=== PATIENT | male | born 1970 | race Caucasian/White ===

== ENCOUNTER → 2017-08-03 | Outpatient (REF) | payer OTHER ==
[~2017-08-03] MED LIST: ATOR1TAB21 PO; BENA25CA2 PO; DOCU10CA PO; FLAG500T PO; HYDR25TAB PO; LISI10TA4 PO; MACR100C42 PO; MECL-68 PO; NEUR100C PO; NITR100C2 PO; PARO20TA3 PO; PERC5TAB12 PO; PROT1TAB2 PO; RANI15TA PO; REGL10TA6 PO; TYLE325T5 PO; toradol
[2017-08-03 14:42] LABS: REASON FOR REVIEW COMPREHENSIVE REVIEW
== END ==
LOC: M LAB REF 12:45
PROVIDERS: ATTEND Internal Medicine Medical Oncology
DX: D70.3 Neutropenia due to infection (principal)

== ENCOUNTER → 2017-08-12 | Outpatient (CLI) | payer OTHER ==
[~2017-08-12] MED LIST changes: +ISOVUE-370 76% 100ML VIAL (Q9967) As Ordered ONE
--- NOTE | 2017-08-12 08:47 | REP ---
CT Head without contrast HISTORY: Dizziness COMPARISON: None There is no intraparenchymal hemorrhage, acute infarct, mass or midline shift. The ventricular system is normal in appearance. There is no extra cerebral collection. There is no fracture. The visualized sinuses are clear. IMPRESSION: There is no intracranial lesion. Signed by Philippe Rouse MD 08/12/2017 08:37 A
--- NOTE | 2017-08-12 08:57 | REP ---
CT ANGIO HEAD: HISTORY: Dizziness. CONTRAST: Isovue 370, 75 mL. There is no aneurysm or arteriovenous malformation. A small calcified atherosclerotic plaque is present in the mid basilar artery. There is no significant stenosis. Major intracranial vessels are patent. The left vertebral artery is dominant. IMPRESSION: 1. There is no aneurysm or arteriovenous malformation. 2. Atherosclerotic disease as described above. Signed by Philippe Rouse MD 08/12/2017 09:00 A
--- NOTE | 2017-08-12 09:00 | REP ---
CT ANGIO NECK: HISTORY: Dizziness. CONTRAST: Isovue 370, 75 mL. The distal common carotid arteries and origins of the external and internal carotid arteries are normal. The vertebral arteries are patent. The left vertebral artery is dominant. There are no atherosclerotic lesions. The origins of the great vessels are normal. IMPRESSION: Normal CT ANGIO neck. Signed by Philippe Rouse MD 08/12/2017 09:00 A
== END ==
LOC: M RAD 07:25
PROVIDERS: ATTEND Psychiatry & Neurology Neurology
DX: R42 Dizziness and giddiness (principal); R26.81 Unsteadiness on feet
CPT/HCPCS: 70450; 70496; 70498; Q9967

== ENCOUNTER 2020-09-29 13:39 | Inpatient (IN) | payer OTHER ==
[~2020-09-29] VITALS: Ht 177.8 cm; Wt 139.7 kg
[~2020-09-29 13:39] MED LIST changes: +AUGM875T28 PO; +GLIP10TA PO; +HYDR-2541 PO; -HYDR25TAB PO; -ISOVUE-370 76% 100ML VIAL (Q9967) As Ordered ONE; -MECL-68 PO; +MECL1TAB31 PO; +NESI25TA PO; +PARO10TA3 PO; +PIOG1TAB36 PO; +PROAAER10 INH
[2020-09-29 15:10] VITALS: BP 132/78
[2020-09-29 16:00] LABS: BASO % 0.4 % (0.0-1.0); EOS % 0.4 % (0.0-3.0); HEMATOCRIT 46.1 % (42.0-52.0); HEMOGLOBIN 15.2 g/dl (13.5-17.5); LYMPH # 0.5 10^3/uL (1.5-5.0); LYMPH % 17.5 % (24.0-44.0); MEAN CORPUSCULAR HEMOGLOBIN 31.3 pg (27.0-33.0); MEAN CORPUSCULAR VOLUME 95.1 fl (80.0-96.0); MONO # 0.4 10^3/uL (0.0-0.8); MONO % 16.7 % (0.0-5.0); NEUTROPHILS # 1.7 10^3/uL (1.5-8.5); PLATELET COUNT, AUTOMATED 109 10^3/uL (150-450); RED BLOOD COUNT 4.85 10^6/uL (4.30-6.10); WHITE BLOOD COUNT 2.6 10^3/uL (4.0-10.0)
[2020-09-29 16:09] LABS: INR 1.06
[2020-09-29] MEDS ORDERED: IBUP1TAB7 PO (16:13)
[2020-09-29] MEDS ORDERED: HYDR50TA70 PO (16:13)
[2020-09-29 16:27] LABS: ALBUMIN 3.2 GM/DL (3.2-5.2); ALT/SGPT 367 U/L (12-78); BILIRUBIN,TOTAL 6.4 MG/DL (0.2-1.0); BLOOD UREA NITROGEN 8 MG/DL (7-18); CALCIUM LEVEL 8.5 MG/DL (8.5-10.1); CARBON DIOXIDE LEVEL 24 MEQ/L (21-32); CHLORIDE LEVEL 103 MEQ/L (98-107); CREATININE FOR GFR 0.76 MG/DL (0.70-1.30); GLOMERULAR FILTRATION RATE > 60.0 (>60); GLUCOSE, FASTING 227 MG/DL (70-100); POTASSIUM SERUM 3.8 MEQ/L (3.5-5.1); SODIUM LEVEL 135 MEQ/L (136-145); TOTAL PROTEIN 7.8 GM/DL (6.4-8.2)
[2020-09-29] MEDS ORDERED: DEXTROSE 50% 50 ML SYRINGE IV PRN (17:15)
[2020-09-29] MEDS ORDERED: GLUCAGON INJ 1MG VIAL SC PRN (17:15)
[2020-09-29] MEDS ORDERED: GLUCOSE 4GM CHEW TABLET PO PRN (17:15)
[2020-09-29 17:34] LABS: LIPASE 4596 U/L (73-393)
[2020-09-29] MEDS: HumaLOG INSULIN (NovoLOG) PER UNIT SC SCH ×2 (17:55→20:07)
[2020-09-29 20:00] VITALS: BP 135/81
[2020-09-29] MEDS: NS 1,000 ML IV SCH (20:07)
[2020-09-29] MEDS: MORPHINE 2 MG/ML 1ML VIAL (J2270) IV PRN (20:11)
--- NOTE | 2020-09-29 21:20 | HPEPDOC ---
General Date of Admission Sep 29, 2020 at 14:58 Date of Service: Sep 29, 2020 Chief Complaint The patient is a 50-year-old male admitted with a reason for visit of Pancreatitis,Obstructive Jaundice. Source: Patient History of Present Illness 50 year old male with h/o cirrhosis due to hemochromatosis, thrombocytopenia, leucopenia, morbid obesity, h/o Hodgkin's lymphoma treated in 2010, DM, HTN, was transferred from [place] for Obstructive jaundice and pancreatitis with CT scan showing enlargement of pancreas head. Patient complains of dull aching abdominal pain in the periumbilical region and radiating around the sides to the back ede g on for 1 month but worse in the last 1 week. He also complains of nausea and vomiting and unable to keep food down. He was found to have obstructive jaundice with possible pancreatitis. Home Medications Scheduled Alogliptin Benzoate (Nesina) 25 Mg Tablet, 25 MG PO DAILY, (Reported) Gabapentin (Neurontin) 100 Mg Cap, 100 MG PO TID, (Reported) Glipizide (Glipizide) 10 Mg Tablet, 10 MG PO BID, (Reported) Lisinopril (Lisinopril) 10 Mg Tab, 10 MG PO DAILY, (Reported) Paroxetine HCl (Paroxetine) 10 Mg Tablet, 10 MG PO DAILY, (Reported) Pioglitazone HCl (Pioglitazone HCl) 15 Mg Tablet, 15 MG PO DAILY, (Reported) Scheduled PRN Albuterol Sulfate (Proair Hfa) 8.5 Gm Hfa.aer.ad, 2 PUFF INH Q4H PRN for wheezing, (Reported) Hydroxyzine HCl (Hydroxyzine HCl) 50 Mg Tablet, 50 MG PO Q6H PRN for ANXIETY/AGITATION, (Reported) Meclizine HCl (Meclizine HCl) 25 Mg Tab, 25 MG PO Q8H PRN for NAUSEA OR VOMITING, (Reported) Allergies Coded Allergies: No Known Drug Allergies (Verified Allergy, Unknown, 09/29/20) Past Medical History Medical History History of non-Hodgkin's lymphoma in neck underwent localized therapy with excision followed by radiation therapy (as per Dr. Jeff's notes) in 2010 Leukopenia and thrombocytopenia Liver cirrhosis on CT scan 06/25 and on liver biopsy 06/2010. Hereditary hemochromatosis with gene testing 07/24/2020 showing single mutation [id number] identified and liver biopsy 06/27/2010 showed iron overload restarted on phlebotomy about 2 months ago. Hypertension. Hyperlipidemia. Diabetes mellitus. Morbid obesity Ureteral stone tubular adenomas H/O ANGEL now reports does not have it Obstructive lung disease Surgical History Bilateral tonsillectomy cystoscopy and laser lithotripsy of right ureteral stone and placement of JJ stent Family History His father had liver cancer. His mother had colon cancer. A paternal uncle had stomach cancer with subsequent "spider" cancer. Social History * Smoker: former Smoker, chew (tobacco) Alcohol: Denies Drugs: denies A-FIB/CHADSVASC A-FIB History Current/History of A-Fib/PAF?: No Review of Systems Constitutional: Reports: Weight Loss; Denies: Chills, Fever, Night Sweats Eyes: Denies: Pain, Vision change ENT: Denies: Head Aches, Ear Pain, Dysphagia Skin: Denies: Rash, Lesions, Breakdown Pulmonary: Denies: Dyspnea, Cough Cardiovascular: Denies: Chest Pain, Palpitations, Orthopnea, Paroxysmal Noc. Dyspnea, Lt Headedness Gastrointestinal: Reports: Nausea, Vomiting, Abdominal Pain Genitourinary: Denies: Dysuria, Frequency, Incontinence, Retention Hematologic: Denies: Bruising, Bleeding Excessively Musculoskeletal: Denies: Neck Pain, Back Pain, Joint Pain, Muscle Pain, Spasms Physical Examination General Exam: Positive: Alert, Cooperative, No Acute Distress Eye Exam: Positive: PERRLA, Conjunctiva & lids normal, EOMI, Sclera icteric ENT Exam: Positive: Atraumatic, Mucous membr. moist/pink, Pharynx Normal Neck Exam: Positive: Supple; Negative: JVD, thyromegaly Chest Exam: Positive: Clear to auscultation, Normal air movement Heart Exam: Positive: Rate Normal, Regular Rhythm, Normal S1, Normal S2; Negative: Murmurs, Rubs Abdomen Exam: Positive: Normal bowel sounds, Soft, Tenderness, Other (obese); Negative: Hepatospenomegaly Extremity Exam: Positive: Normal pulses; Negative: Clubbing, Cyanosis, Edema Skin Exam: Positive: Nl turgor and temperature; Negative: Breakdown, Lesion Vital Signs Vital Signs Label Value Date Time Patient Temperature 98.1 degrees F 09/29/20 1510 Temperature Source Temporal 09/29/20 1510 Pulse 84 09/29/20 1510 Respiratory Rate 18 bpm 09/29/20 1510 Blood Pressure Assessment 132/78 (96) 09/29/20 1510 Bedside Pulse Oximetry 98 % 09/29/20 1510 Item Value Date Time Oxygen Delivery Method Room Air 09/29/20 1510 Assessment/Plan 50 year old male with h/o cirrhosis due to hemochromatosis, thrombocytopenia, leucopenia, morbid obesity, h/o Hodgkin's lymphoma treated in 2010, DM, HTN, was transferred from [place] for Obstructive jaundice and pancreatitis with CT scan showing enlargement of pancreas head. Patient complains of dull aching abdominal pain in the periumbilical region and radiating around the sides to the back going on for 1 month but worse in the last 1 week. He also complains of nausea and vomiting and unable to keep food down. He was found to have obstructive jaundice with possible pancreatitis and rule out pancreatic mass. Obstructive Jaundice MRI of abdomen with contrast pancreatic protocol GI consult. NPO midnight. DM Lispro sliding scale Ac and HS. Hypertension Lisinopril HLD will hold statin for now Depression continue paroxetine. Morbid obesity with H/O ANGEL reports that had a second sleep study done in [place] and was told that he no longer has sleep apnea. History of non-Hodgkin's lymphoma in neck underwent localized therapy with excision followed by radiation therapy in 2010 Leukopenia and thrombocytopenia had flow cytometry which was negative planned for bone marrow biopsy by hematology Liver cirrhosis on CT scan 06/25 and on liver biopsy 06/2010. due to hemochromatosis getting phlebotomy every 2 weeks Plan / VTE VTE Prophylaxis Ordered?: Yes RITA BOSS MD Sep 29, 2020 15:37
[2020-09-30] VITALS: BP 137/86
[2020-09-30 04:00] VITALS: BP 133/86
[2020-09-30] MEDS: MORPHINE 2 MG/ML 1ML VIAL (J2270) IV PRN ×4 (04:00→23:41)
[2020-09-30] MEDS: NS 1,000 ML IV SCH (05:21)
[2020-09-30 07:51] VITALS: BP 118/65
[2020-09-30] MEDS: HumaLOG INSULIN (NovoLOG) PER UNIT SC SCH ×4 (08:30→21:00)
[2020-09-30 09:43] LABS: BASO % 0.6 % (0.0-1.0); EOS % 1.8 % (0.0-3.0); HEMATOCRIT 45.2 % (42.0-52.0); HEMOGLOBIN 15.3 g/dl (13.5-17.5); LYMPH # 0.4 10^3/uL (1.5-5.0); LYMPH % 24.3 % (24.0-44.0); MEAN CORPUSCULAR HEMOGLOBIN 32.2 pg (27.0-33.0); MEAN CORPUSCULAR HGB CONC 33.8 g/dl (32.0-36.5); MEAN CORPUSCULAR VOLUME 95.2 fl (80.0-96.0); MONO # 0.4 10^3/uL (0.0-0.8); MONO % 21.9 % (0.0-5.0); NEUTROPHILS % 51.4 % (36.0-66.0); PLATELET COUNT, AUTOMATED 112 10^3/uL (150-450); RED BLOOD COUNT 4.75 10^6/uL (4.30-6.10)
[2020-09-30 10:11] LABS: NEUTROPHILS # 0.9 10^3/uL (1.5-8.5); WHITE BLOOD COUNT 1.7 10^3/uL (4.0-10.0)
[2020-09-30 10:58] LABS: ALBUMIN 2.9 GM/DL (3.2-5.2); ALT/SGPT 348 U/L (12-78); BILIRUBIN,DIRECT 4.7 MG/DL (0.0-0.2); BILIRUBIN,TOTAL 6.2 MG/DL (0.2-1.0); BLOOD UREA NITROGEN 6 MG/DL (7-18); CALCIUM LEVEL 8.3 MG/DL (8.5-10.1); CARBON DIOXIDE LEVEL 28 MEQ/L (21-32); CHLORIDE LEVEL 103 MEQ/L (98-107); CREATININE FOR GFR 0.71 MG/DL (0.70-1.30); GLOMERULAR FILTRATION RATE > 60.0 (>60); GLUCOSE, FASTING 232 MG/DL (70-100); LIPASE 3514 U/L (73-393); POTASSIUM SERUM 3.7 MEQ/L (3.5-5.1); SODIUM LEVEL 136 MEQ/L (136-145); TOTAL PROTEIN 7.5 GM/DL (6.4-8.2)
[2020-09-30 12:00] VITALS: BP 126/72
--- NOTE | 2020-09-30 13:16 | IPNPDOC ---
Subjective Date Seen The patient was seen on 09/30/20. Subjective Chief Complaint/HPI Complains of wheezing this am. Continued to have central abdominal pain with radiation around the sides to the back. No fever or chills Objective Physical Examination General Exam: Positive: Alert, Cooperative, No Acute Distress Eye Exam: Positive: PERRLA, Conjunctiva & lids normal, EOMI, Sclera icteric ENT Exam: Positive: Atraumatic, Mucous membr. moist/pink, Pharynx Normal Neck Exam: Positive: Supple; Negative: JVD, thyromegaly Chest Exam: Positive: Clear to auscultation, Normal air movement Heart Exam: Positive: Rate Normal, Regular Rhythm, Normal S1, Normal S2; Negative: Murmurs, Rubs Abdomen Exam: Positive: Normal bowel sounds, Soft, Tenderness, Other (obese); Negative: Hepatospenomegaly Extremity Exam: Positive: Normal pulses; Negative: Clubbing, Cyanosis, Edema Skin Exam: Positive: Nl turgor and temperature; Negative: Breakdown, Lesion Assessment /Plan Assessment 50 year old male with h/o cirrhosis due to hemochromatosis, thrombocytopenia, leucopenia, morbid obesity, h/o Hodgkin's lymphoma treated in 2010, DM, HTN, was transferred from [place] for Obstructive jaundice and pancreatitis with CT scan showing enlargement of pancreas head. Patient complains of dull aching abdominal pain in the periumbilical region and radiating around the sides to the back going on for 1 month but worse in the last 1 week. He also complains of nausea and vomiting and unable to keep food down. He was found to have obstructive jaundice with pancreatitis and rule out pancreatic mass. Acute Pancreatitis full liquids seems to be tolerating it. IVF, morphine prn. Obstructive Jaundice MRI of abdomen with contrast pancreatic protocol GI consult. DM Lispro sliding scale Ac and HS. Hypertension Lisinopril HLD will hold statin for now Depression continue paroxetine. Morbid obesity with H/O ANGEL reports that had a second sleep study done in [place] and was told that he no longer has sleep apnea. History of non-Hodgkin's lymphoma in neck underwent localized therapy with excision followed by radiation therapy in 2010 Leukopenia and thrombocytopenia had flow cytometry which was negative planned for bone marrow biopsy by hematology Liver cirrhosis on CT scan 06/25 and on liver biopsy 06/2010. due to hemochromatosis getting phlebotomy every 2 weeks Plan/VTE VTE Prophylaxis Ordered?: Yes VS, I&O, [facility] Vital Signs/I&O Vital Signs Date Time Temp Pulse Resp B/P (MAP) Pulse Ox O2 Delivery O2 Flow Rate FiO2 09/30/20 12:14 18 09/30/20 12:00 97.6 76 126/72 (90) 94 Room Air I&O- Last 24 Hours up to 6 AM 09/30/20 07:00 Intake Total 2055 ml Output Total 1200 ml Balance 855 ml Laboratory Data 24H LABS Laboratory Tests 2 09/29/20 15:20: Coronavirus (COVID-19)(PCR) NEGATIVE 09/29/20 15:43: Immature Granulocyte % (Auto) 0.0, Neutrophils (%) (Auto) 65.0, Lymphocytes (%) (Auto) 17.5L, Monocytes (%) (Auto) 16.7H, Eosinophils (%) (Auto) 0.4, Basophils (%) (Auto) 0.4, Neutrophils # (Auto) 1.7, Lymphocytes # (Auto) 0.5L, Monocytes # (Auto) 0.4, Eosinophils # (Auto) 0.0, Basophils # (Auto) 0.0, Nucleated Red Blood Cells % (auto) 0.0, Prothrombin Time 14.0, Prothromb Time International Ratio 1.06, Anion Gap 8, Glomerular Filtration Rate > 60.0, Calcium Level 8.5, Total Bilirubin 6.4H, Aspartate Amino Transf (AST/SGOT) 226H, Alanine Aminotransferase (ALT/SGPT) 367H, Alkaline Phosphatase 392H, Total Protein 7.8, Albumin 3.2, Albumin/Globulin Ratio 0.7, Lipase 4596H 09/29/20 17:47: Bedside Glucose (Misc Panel) 190H 09/29/20 20:05: Bedside Glucose (Misc Panel) 217H 09/30/20 08:28: Bedside Glucose (Misc Panel) 215H 09/30/20 09:10: Immature Granulocyte % (Auto) 0.0, Neutrophils (%) (Auto) 51.4, Lymphocytes (%) (Auto) 24.3, Monocytes (%) (Auto) 21.9H, Eosinophils (%) (Auto) 1.8, Basophils (%) (Auto) 0.6, Neutrophils # (Auto) 0.9L, Lymphocytes # (Auto) 0.4L, Monocytes # (Auto) 0.4, Eosinophils # (Auto) 0.0, Basophils # (Auto) 0.0, Nucleated Red Blood Cells % (auto) 0.0, Anion Gap 5L, Glomerular Filtration Rate > 60.0, Calc ium Level 8.3L, Total Bilirubin 6.2H, Direct Bilirubin 4.7H, Aspartate Amino Transf (AST/SGOT) 235H, Alanine Aminotransferase (ALT/SGPT) 348H, Alkaline Phosphatase 399H, Total Protein 7.5, Albumin 2.9L, Albumin/Globulin Ratio 0.6, Lipase 3514H 09/30/20 12:06: Bedside Glucose (Misc Panel) 203H CBC/BMP Laboratory Tests 09/29/20 15:43 09/30/20 09:10 RITA BOSS MD Sep 30, 2020 13:16
[2020-09-30] MEDS: LR 1,000 ML IV SCH ×2 (13:25→19:55)
[2020-09-30] MEDS: ALBUTEROL 90 MCG/ACT 8GM HFA INHALER INH PRN (15:45)
[2020-09-30 16:00] VITALS: BP 142/84
[2020-09-30] MEDS ORDERED: PROHANCE 279.3MG/ML 5ML VIAL As Ordered ONE (19:25)
[2020-09-30] MEDS ORDERED: PROHANCE 279.3MG/ML 15ML VIAL As Ordered ONE (19:25)
[2020-09-30 20:00] VITALS: BP 132/83
[2020-09-30] MEDS ORDERED: LORazepam 2 MG/ML VIAL IV ONE (20:00)
[2020-10-01] VITALS: BP 136/88
[2020-10-01 04:00] VITALS: BP 131/71
[2020-10-01 05:32] LABS: BASO % 1.2 % (0.0-1.0); EOS # 0.1 10^3/uL (0.0-0.5); EOS % 3.6 % (0.0-3.0); HEMATOCRIT 40.4 % (42.0-52.0); LYMPH # 0.5 10^3/uL (1.5-5.0); LYMPH % 30.1 % (24.0-44.0); MEAN CORPUSCULAR HEMOGLOBIN 30.9 pg (27.0-33.0); MEAN CORPUSCULAR HGB CONC 32.9 g/dl (32.0-36.5); MONO # 0.3 10^3/uL (0.0-0.8); MONO % 20.5 % (0.0-5.0); NEUTROPHILS % 44.6 % (36.0-66.0); PLATELET COUNT, AUTOMATED 103 10^3/uL (150-450); WHITE BLOOD COUNT 1.7 10^3/uL (4.0-10.0)
[2020-10-01 05:53] LABS: HEMOGLOBIN 13.3 g/dl (13.5-17.5); NEUTROPHILS # 0.7 10^3/uL (1.5-8.5)
[2020-10-01 06:02] LABS: ALBUMIN 2.6 GM/DL (3.2-5.2); ALT/SGPT 299 U/L (12-78); BILIRUBIN,TOTAL 6.7 MG/DL (0.2-1.0); BLOOD UREA NITROGEN 5 MG/DL (7-18); CALCIUM LEVEL 8.3 MG/DL (8.5-10.1); CARBON DIOXIDE LEVEL 28 MEQ/L (21-32); CHLORIDE LEVEL 102 MEQ/L (98-107); CREATININE FOR GFR 0.66 MG/DL (0.70-1.30); GLOMERULAR FILTRATION RATE > 60.0 (>60); GLUCOSE, FASTING 238 MG/DL (70-100); POTASSIUM SERUM 3.5 MEQ/L (3.5-5.1); SODIUM LEVEL 138 MEQ/L (136-145); TOTAL PROTEIN 6.7 GM/DL (6.4-8.2)
[2020-10-01 07:52] VITALS: BP 124/68
[2020-10-01] MEDS: HumaLOG INSULIN (NovoLOG) PER UNIT SC SCH ×4 (07:59→21:44)
[2020-10-01] MEDS: LR 1,000 ML IV SCH ×4 (08:01→22:35)
[2020-10-01 11:50] VITALS: BP 142/88
[2020-10-01] MEDS ORDERED: diazePAM 5MG TABLET PO PRN (12:30)
[2020-10-01] MEDS: MORPHINE 2 MG/ML 1ML VIAL (J2270) IV PRN ×3 (12:35→23:36)
--- NOTE | 2020-10-01 12:53 | IPNPDOC ---
Text Note Date of Service The patient was seen on 10/01/20. NOTE Subjective: Patient stated that he is very claustrophobic to MRI. MRI was not done yesterday. Patient was able to tolerate full liquid diet. He stated that his abdominal pain significantly subsided. Objective: GENERAL APPEARANCE: NAD HEENT: icterus, no JVD, EOMI CARDIOVASCULAR: S1S2 LUNGS: CTA ABDOMEN: Moderately tender in the left upper quadrant MUSCULOSKELETAL: no cyanosis, no swelling INTEGUMENT: Jaundice NEUROLOGICAL: cranial nerve function from 2-12 intact intact, follows commands, speech not dysarthric Assessment /Plan 50 year old male with h/o cirrhosis due to hemochromatosis, thrombocytopenia, leucopenia, morbid obesity, h/o Hodgkin's lymphoma treated in 2010, DM, HTN, was transferred from [place] for Obstructive jaundice and pancreatitis with CT scan shows no biliary duct dilatation. Patient complains of dull aching abdominal pain in the periumbilical region and radiating around the sides to the back going on for 1 month but worse in the last 1 week. He also complains of nausea and vomiting and unable to keep food down. He was found to have obstructive jaundice with pancreatitis and rule out pancreatic mass. Acute Pancreatitis Improved IVF, morphine prn. CT of abdomen was done in the [facility] [facility] and showed normal contrast enhanced CT appearance of the pancreas, adrenal glands and kidneys. Spleen enlarged 17.8 cm. Status post cholecystectomy. No evidence of biliary duct dilatation. Possible mild cirrhosis. Obstructive Jaundice Patient refused MRCP I talked to Dr. Hodges, he recommended to proceed with ultrasound DM Lispro sliding scale Ac and HS. Hypertension Lisinopril HLD will hold statin for now Depression continue paroxetine. Morbid obesity with H/O ANGEL reports that had a second sleep study done in [place] and was told that he no longer has sleep apnea. History of non-Hodgkin's lymphoma in neck underwent localized therapy with excision followed by radiation therapy in 2010 Leukopenia and thrombocytopenia had flow cytometry which was negative planned for bone marrow biopsy by hematology Liver cirrhosis on CT scan 06/25 and on liver biopsy 06/2010. due to hemochromatosis getting phlebotomy every 2 weeks VS,Fishbone, I+O VS, Fishbone, I+O Laboratory Tests 10/01/20 04:52 Vital Signs Date Time Temp Pulse Resp B/P (MAP) Pulse Ox O2 Delivery O2 Flow Rate FiO2 10/01/20 11:50 97.8 77 18 142/88 (003) 93 Room Air I&O- Last 24 Hours up to 6 AM 10/01/20 06:00 Intake Total 720 ml Output Total 3000 ml Balance -2280 ml BETO GALLARDO DO Oct 01, 2020 12:53
[2020-10-01] MEDS ORDERED: diazePAM 5MG TABLET PO ONE (14:00)
[2020-10-01 15:34] VITALS: BP 135/80
[2020-10-01] MEDS: ALBUTEROL 90 MCG/ACT 8GM HFA INHALER INH PRN (16:16)
[2020-10-01 20:00] VITALS: BP 142/82
[2020-10-02] VITALS (11 sets, daily range): BP systolic 126–170; BP diastolic 67–98
[2020-10-02] MEDS: MORPHINE 2 MG/ML 1ML VIAL (J2270) IV PRN ×3 (03:33→20:13)
[2020-10-02] MEDS: LR 1,000 ML IV SCH ×2 (03:33→12:23)
[2020-10-02 05:38] LABS: BASO % 0.6 % (0.0-1.0); EOS % 2.4 % (0.0-3.0); HEMATOCRIT 40.1 % (42.0-52.0); HEMOGLOBIN 13.3 g/dl (13.5-17.5); LYMPH # 0.5 10^3/uL (1.5-5.0); LYMPH % 31.1 % (24.0-44.0); MEAN CORPUSCULAR HGB CONC 33.2 g/dl (32.0-36.5); MEAN CORPUSCULAR VOLUME 93.5 fl (80.0-96.0); MONO # 0.4 10^3/uL (0.0-0.8); MONO % 22.2 % (0.0-5.0); NEUTROPHILS % 43.7 % (36.0-66.0); PLATELET COUNT, AUTOMATED 101 10^3/uL (150-450); RED BLOOD COUNT 4.29 10^6/uL (4.30-6.10); WHITE BLOOD COUNT 1.7 10^3/uL (4.0-10.0)
[2020-10-02 05:57] LABS: ALBUMIN 2.4 GM/DL (3.2-5.2); ALT/SGPT 278 U/L (12-78); BILIRUBIN,TOTAL 6.9 MG/DL (0.2-1.0); BLOOD UREA NITROGEN 6 MG/DL (7-18); CALCIUM LEVEL 8.5 MG/DL (8.5-10.1); CARBON DIOXIDE LEVEL 27 MEQ/L (21-32); CHLORIDE LEVEL 104 MEQ/L (98-107); CREATININE FOR GFR 0.63 MG/DL (0.70-1.30); GLOMERULAR FILTRATION RATE > 60.0 (>60); GLUCOSE, FASTING 231 MG/DL (70-100); POTASSIUM SERUM 3.5 MEQ/L (3.5-5.1); SODIUM LEVEL 137 MEQ/L (136-145)
[2020-10-02 06:02] LABS: NEUTROPHILS # 0.7 10^3/uL (1.5-8.5)
[2020-10-02 08:19] LABS: INR 1.1; PROTHROMBIN TIME 14.4 SECONDS (12.5-14.3)
[2020-10-02 08:30] LABS: IRON (FE) 135 UG/DL (65-175); PERCENT SATURATION 82.8 % (19.7-50.0); TOTAL IRON BINDING CAPACITY 163 UG/DL (250-450)
[2020-10-02] MEDS ORDERED: POTASSIUM CHLORIDE 10 MEQ SR TABLET PO ONE (09:00)
[2020-10-02] MEDS: HumaLOG INSULIN (NovoLOG) PER UNIT SC SCH ×4 (09:11→20:37)
[2020-10-02 09:59] LABS: HEPATITIS B SURFACE ANTIGEN NEGATIVE (NEGATIVE)
[2020-10-02 10:02] LABS: MONO REFLEX EBV VCA IgM NEGATIVE (NEGATIVE)
--- NOTE | 2020-10-02 10:04 | REP ---
INDICATION: pancreatitis,Jaundice. with Doppler portal vessels. COMPARISON: [facility] 09/29/2020. TECHNIQUE: Real-time sonographic evaluation of ABDOMEN PERFORMED, WITH DUPLEX DOPPLER EVALUATION OF PORTAL VASCULATURE. FINDINGS: Patient has had a prior cholecystectomy. There is no intrahepatic biliary dilatation. The common bile duct measures 10 mm in maximum diameter. The liver demonstrates heterogeneous increased echotexture with coarsening compatible with diffuse fibrofatty infiltration. There is likely an element of cirrhosis. No gross liver masses seen. The pancreas is not optimally visualized but there appears to be a hypoechoic mass in the head of the pancreas, approximately 3-4 centimeters in diameter. Spleen is significantly enlarged measuring 18.5 x 19.2 x 8.9 centimeters. There is no evidence of hydronephrosis, cyst, mass, or calculus in either kidney. The right kidney measures 12.7 x 6.8 x 6.3 cm. Left renal dimensions are 15.6 x 7.0 x 7.1 cm. No free fluid is seen. The main portal vein measures 11 mm in diameter. The main portal vein is patent with pulsatile waveform. Velocity in the main portal vein is 21 centimeter/second. There is reversal of flow in the left portal vein. The other portal veins demonstrate normal direction of flow. The splenic vein is only visualized in the splenic hilum with normal direction of flow, 27 centimeter/second. The superior mesenteric vein could not be visualized. Multiple varicosities are seen in the splenic hilum. There is no portal vein thrombosis. The waveform of the right hepatic vein is portalized. The middle hepatic vein is not visualized. The left hepatic vein demonstrates dampened phasicity.. Patent main hepatic artery demonstrates peak systolic velocity of 120 centimeters/second. IMPRESSION: Status post prior cholecystectomy. Common bile duct 10 millimeters. Diffuse fibrofatty infiltration of the liver with apparent cirrhosis. Significant splenomegaly. There is a mass in the head of the pancreas approximately 3-4 centimeters in diameter. Reversal of flow in the left portal vein. Otherwise normal direction of flow in the remaining portal veins. Multiple venous varicosities visualized in the splenic hilum. No thrombus seen in any of the portal veins or hepatic veins. <Electronically signed by Isaac Ferro > 10/02/20 1001
[2020-10-02 10:26] LABS: HEPATITIS B CORE ANTIBODY IGM NEGATIVE (NEGATIVE)
[2020-10-02 10:29] LABS: HEPATITIS A ANTIBODY IGM NEGATIVE (NEGATIVE)
--- NOTE | 2020-10-02 11:36 | IPNPDOC ---
Text Note Date of Service The patient was seen on 10/02/20. NOTE Subjective: No any acute events overnight. Patient denied fever, chills, nausea, vomiting, diarrhea or dysuria Objective: GENERAL APPEARANCE: NAD HEENT: icterus, no JVD, EOMI CARDIOVASCULAR: S1S2 LUNGS: CTA ABDOMEN: Moderately tender in the left upper quadrant MUSCULOSKELETAL: no cyanosis, no swelling INTEGUMENT: Jaundice NEUROLOGICAL: cranial nerve function from 2-12 intact intact, follows commands, speech not dysarthric Assessment /Plan 50 year old male with h/o cirrhosis due to hemochromatosis, thrombocytopenia, leucopenia, morbid obesity, h/o Hodgkin's lymphoma treated in 2010, DM, HTN, was transferred from [place] for Obstructive jaundice and pancreatitis with CT scan shows no biliary duct dilatation. Patient complains of dull aching abdominal pain in the periumbilical region and radiating around the sides to the back going on for 1 month but worse in the last 1 week. He also complains of nausea and vomiting and unable to keep food down. He was found to have obstructive jaundice with pancreatitis and rule out pancreatic mass. Acute Pancreatitis Improved IVF, morphine prn. CT of abdomen was done in the [facility] and showed normal contrast enhanced CT appearance of the pancreas, adrenal glands and kidneys. Spleen enlarged 17.8 cm. Status post cholecystectomy. No evidence of biliary duct dilatation. Possible mild cirrhosis. Ultrasound was done today and showed Status post prior cholecystectomy. Common bile duct 10 millimeters. Diffuse fibrofatty infiltration of the liver with apparent cirrhosis. Significant splenomegaly. There is a mass in the head of the pancreas approximately 3-4 centimeters in diameter. Reversal of flow in the left portal vein. Otherwise normal direction of flow in the remaining portal veins. Multiple venous varicosities visualized in the splenic hilum. No thrombus seen in any of the portal veins or hepatic veins. Will discuss with Dr. Rodriguez possible ERCP Obstructive Jaundice Patient refused MRCP DM Lispro sliding scale Ac and HS. Hypertension Lisinopril HLD will hold statin for now Depression continue paroxetine. Morbid obesity with H/O ANGEL reports that had a second sleep study done in [place] and was told that he no longer has sleep apnea. History of non-Hodgkin's lymphoma in neck underwent localized therapy with excision followed by radiation therapy in 2010 Leukopenia and thrombocytopenia had flow cytometry which was negative planned for bone marrow biopsy by hematology Liver cirrhosis on CT scan 06/25 and on liver biopsy 06/2010. due to hemochromatosis getting phlebotomy every 2 weeks VS,Fishbone, I+O VS, Fishbone, I+O Laboratory Tests 10/02/20 05:05 Vital Signs Date Time Temp Pulse Resp B/P (MAP) Pulse Ox O2 Delivery O2 Flow Rate FiO2 10/02/20 10:09 16 10/02/20 07:34 98.2 84 129/72 (91) 95 Room Air I&O- Last 24 Hours up to 6 AM 10/02/20 05:59 Intake Total 3000 ml Output Total 3700 ml Balance -700 ml BETO GALLARDO DO Oct 02, 2020 11:36
[2020-10-02] MEDS ORDERED: propofoL 200 MG/20 ML VIAL As Ordered ONE (16:38)
[2020-10-02] MEDS ORDERED: LIDOCAINE 2% 100MG/5ML SDV (FOR ANES.) As Ordered ONE (16:39)
[2020-10-02] MEDS ORDERED: ONDANSETRON 4MG/2ML VIAL As Ordered ONE (16:39)
[2020-10-02] MEDS ORDERED: fentaNYL 100 MCG/2 ML INJECTION (J3010) As Ordered ONE (16:39)
[2020-10-02] MEDS ORDERED: ROCURONIUM BROMIDE 50 MG/5 ML VIAL As Ordered ONE (16:39)
[2020-10-02] MEDS ORDERED: dexameTHASONE 4 MG/ML 1ML VIAL (J1100 PER 1MG) As Ordered ONE (16:39)
[2020-10-02] MEDS ORDERED: MIDAZOLAM INJ 2MG/2ML VIAL (J2250 PER 1MG) As Ordered ONE (16:39)
[2020-10-02] MEDS ORDERED: ISOVUE-300 61% 50ML VIAL As Ordered ONE (16:43)
[2020-10-02] MEDS ORDERED: ZOSYN 3.375GM VIAL (J2543) As Ordered ONE (17:31)
[2020-10-02] MEDS ORDERED: ALBUTEROL 6.7GM INHALER **FOR ANES. CART/OMNICELL ONLY As Ordered ONE (17:42)
[2020-10-02] MEDS ORDERED: SUGAMMADEX SODIUM 500 MG/5 ML VIAL (BRIDION) As Ordered ONE (17:46)
--- NOTE | 2020-10-02 18:59 | ROOR ---
Patient Name: Sheri Acuña Procedure Date: 10/02/2020 4:43 PM Date of : 1970 Age: 50 Room: Main OR Gender: Male Note Status: Finalized Procedure: ERCP Indications: Abdominal pain of suspected biliary origin, Abnormal abdominal CT, Abnormal abdominal ultrasound, Jaundice, Elevated liver enzymes, Tumor of the head of pancreas Providers: Adam RODRIGUEZ MD Referring MD: 2. Inpatient 2. Inpatient Requesting Provider: Medicines: Monitored Anesthesia Care, General Anesthesia Complications: No immediate complications. Procedure: Pre-Anesthesia Assessment: - The heart rate, respiratory rate, oxygen saturations, blood pressure, adequacy of pulmonary ventilation, and response to care were monitored throughout the procedure. The Duodenoscope was introduced through the mouth, and advanced to the duodenum and used to inject contrast into the bile duct and ventral pancreatic duct. The ERCP was accomplished without difficulty. The patient tolerated the procedure well. Findings: The group counselor film was normal. The esophagus was successfully intubated under direct vision. The scope was advanced to a edematous/erythematous major papilla in the descending duodenum without detailed examination of the pharynx, larynx and associated structures, and upper GI tract. The upper GI tract was grossly normal. The patient has known cirrhosis. I do not see any gastric nor esophageal varices. The dorsal pancreatic duct was then cannulated. I personally interpreted the pancreatic duct images. Ductal flow of contrast was adequate. Image quality was adequate. The ventral pancreatic duct in the head of the pancreas contained a mild compression or stenosis. Cells for cytology were obtained by brushing in the ventral pancreatic duct in the head of the pancreas. A wire was passed into the biliary tree. The bile duct was then deeply cannulated over the guidewire. Contrast was injected. The lower third of the main bile duct contained filling defect(s). The lower third of the main bile duct contained localized stricture 15 mm in length. Cells for cytology were obtained by brushing in the lower third of the main bile duct. One 4 Fr by 3 cm temporary stent with a 3/4 internal pigtail was placed into the ventral pancreatic duct. The stent was in good position. One 10 mm by 6 cm covered metal stent was placed into the common bile duct. Bile flowed through the stent. The stent was in good position. Duodenal edema/erosions surrounding the papilla were biopsied with a cold forceps for histology. Impression: - A localized biliary stricture or extrinsic compression is found in the lower third of the main bile duct. Cytology obtained - A localized pancreatic ductal stricture or extrinsic compression was found in the pancreatic head. Cytology obtained - Cells for cytology obtained in the ventral pancreatic duct in the head of the pancreas. - Cells for cytology obtained in the lower third of the main duct. - One temporary stent was placed into the ventral pancreatic duct. - One covered metal stent was placed into the common bile duct. - Biopsy was performed duodenal edema/erosions surrounding the papilla. Recommendation: - Await path results. - Observe patient's clinical course. - [facility] care. - Advance diet as tolerated. Procedure Code(s): --- Professional --- 76135, Endoscopic retrograde cholangiopancreatography (ERCP); with placement of endoscopic stent into biliary or pancreatic duct, including pre- and post-dilation and guide wire passage, when performed, including sphincterotomy, when performed, each stent [id number], 59, Endoscopic retrograde cholangiopancreatography (ERCP); with placement of endoscopic stent into biliary or pancreatic duct, including pre- and post-dilation and guide wire passage, when performed, including sphincterotomy, when performed, each stent [id number], 59, Endoscopic retrograde cholangiopancreatography (ERCP); with biopsy, single or multiple Diagnosis Code(s): --- Professional --- K83.1, Obstruction of bile duct K86.89, Other specified diseases of pancreas R10.9, Unspecified abdominal pain R93.5, Abnormal findings on diagnostic imaging of other abdominal regions, including retroperitoneum R17, Unspecified jaundice R74.8, Abnormal levels of other serum enzymes D49.0, Neoplasm of unspecified behavior of digestive system CPT copyright 2019 [employer]. All rights reserved. The codes documented in this report are preliminary and upon clinical sociologist review may be revised to meet current compliance requirements. Adam Rodriguez MD Adam RODRIGUEZ MD 10/02/2020 6:59:06 PM Electronically signed by Adam RODRIGUEZ MD Number of Addenda: 0 Note Initiated On: 10/02/2020 4:43 PM Estimated Blood Loss: Estimated blood loss: none.
[2020-10-02] MEDS ORDERED: oxyCODONE 5MG TAB PO PRN (19:15)
[2020-10-02] MEDS ORDERED: LR 1,000 ML IV SCH (19:15)
[2020-10-02] MEDS ORDERED: fentaNYL 100 MCG/2 ML INJECTION (J3010) IV PRN (19:15)
[2020-10-02] MEDS ORDERED: ONDANSETRON 4MG/2ML VIAL IV PRN (19:15)
[2020-10-03] VITALS: BP 137/64
[2020-10-03] MEDS: MORPHINE 4 MG/ML 1ML VIAL/SYRINGE (J2270) IV PRN ×2 (01:08→14:29)
[2020-10-03] MEDS: LR 1,000 ML IV SCH (01:11)
[2020-10-03] MEDS ORDERED: MORPHINE 4 MG/ML 1ML VIAL/SYRINGE (J2270) IV PRN (03:30)
[2020-10-03 04:00] VITALS: BP 130/77
[2020-10-03 05:54] LABS: BASO % 0.6 % (0.0-1.0); HEMATOCRIT 41.5 % (42.0-52.0); HEMOGLOBIN 13.7 g/dl (13.5-17.5); LYMPH # 0.4 10^3/uL (1.5-5.0); LYMPH % 23.6 % (24.0-44.0); MEAN CORPUSCULAR HEMOGLOBIN 30.4 pg (27.0-33.0); MEAN CORPUSCULAR VOLUME 92.2 fl (80.0-96.0); MONO # 0.2 10^3/uL (0.0-0.8); MONO % 12.4 % (0.0-5.0); NEUTROPHILS # 1.1 10^3/uL (1.5-8.5); NEUTROPHILS % 63.4 % (36.0-66.0); PLATELET COUNT, AUTOMATED 108 10^3/uL (150-450); WHITE BLOOD COUNT 1.8 10^3/uL (4.0-10.0)
[2020-10-03 06:14] LABS: ALBUMIN 2.5 GM/DL (3.2-5.2); ALT/SGPT 264 U/L (12-78); BILIRUBIN,TOTAL 3.8 MG/DL (0.2-1.0); BLOOD UREA NITROGEN 6 MG/DL (7-18); CALCIUM LEVEL 8.9 MG/DL (8.5-10.1); CARBON DIOXIDE LEVEL 24 MEQ/L (21-32); CHLORIDE LEVEL 102 MEQ/L (98-107); CREATININE FOR GFR 0.74 MG/DL (0.70-1.30); GLOMERULAR FILTRATION RATE > 60.0 (>60); GLUCOSE, FASTING 287 MG/DL (70-100); POTASSIUM SERUM 4.1 MEQ/L (3.5-5.1); SODIUM LEVEL 134 MEQ/L (136-145); TOTAL PROTEIN 7.6 GM/DL (6.4-8.2)
[2020-10-03 07:51] VITALS: BP 134/82
[2020-10-03] MEDS: HumaLOG INSULIN (NovoLOG) PER UNIT SC SCH ×2 (08:35→12:54)
[2020-10-03] MEDS ORDERED: MIRALAX *UNIT DOSE* 17GM PACKET PO SCH (09:00)
--- NOTE | 2020-10-03 11:28 | REP ---
INDICATION: PANCREATITIS. COMPARISON: None. TECHNIQUE: Intraoperative fluoroscopic imaging using portable C-arm technique from ERCP examination. FINDINGS: Images demonstrate mild dilatation to the common bile duct(CBD) and subsequent CBD stenting. No intraluminal filling defects are identified. Total fluoroscopic time 5 minutes 33 seconds. IMPRESSION: Status post common bile duct stent placement. <Electronically signed by Farhat Spear > 10/03/20 1128
--- NOTE | 2020-10-03 11:29 | IPNPDOC ---
Text Note Date of Service The patient was seen on 10/03/20. NOTE Subjective: No any acute events overnight. Patient tolerated procedure well. Objective: GENERAL APPEARANCE: NAD HEENT: icterus, no JVD, EOMI CARDIOVASCULAR: S1S2 LUNGS: CTA ABDOMEN: Moderately tender in the left upper quadrant MUSCULOSKELETAL: no cyanosis, no swelling INTEGUMENT: Jaundice NEUROLOGICAL: cranial nerve function from 2-12 intact intact, follows commands, speech not dysarthric Assessment /Plan 50 year old male with h/o cirrhosis due to hemochromatosis, thrombocytopenia, leucopenia, morbid obesity, h/o Hodgkin's lymphoma treated in 2010, DM, HTN, was transferred from [place] for Obstructive jaundice and pancreatitis with CT scan shows no biliary duct dilatation. Patient complains of dull aching abdominal pain in the periumbilical region and radiating around the sides to the back going on for 1 month but worse in the last 1 week. He also complains of nausea and vomiting and unable to keep food down. He was found to have obstructive jaundice with pancreatitis and rule out pancreatic mass. Acute Pancreatitis Improved IVF, morphine prn. CT of abdomen was done in the [facility] and showed normal contrast enhanced CT appearance of the pancreas, adrenal glands and kidneys. Spleen enlarged 17.8 cm. Status post cholecystectomy. No evidence of biliary duct dilatation. Possible mild cirrhosis. Ultrasound was done today and showed Status post prior cholecystectomy. Common bile duct 10 millimeters. Diffuse fibrofatty infiltration of the liver with apparent cirrhosis. Significant splenomegaly. There is a mass in the head of the pancreas approximately 3-4 centimeters in diameter. Reversal of flow in the left portal vein. Otherwise normal direction of flow in the remaining portal veins. Multiple venous varicosities visualized in the splenic hilum. No thrombus seen in any of the portal veins or hepatic veins. Dr. Rodriguez did ERCP: A localized biliary stricture or extrinsic compression is found in the lower third of the main bile duct. Cytology obtained - A localized pancreatic ductal stricture or extrinsic compression was found in the pancreatic head. Cytology obtained - Cells for cytology obtained in the ventral pancreatic duct in the head of the pancreas. - Cells for cytology obtained in the lower third of the main duct. - One temporary stent was placed into the ventral pancreatic duct. - One covered metal stent was placed into the common bile duct. - Biopsy was performed duodenal edema/erosions surrounding the papilla. Await biopsy result Obstructive Jaundice Secondary to possible malignancy versus stricture DM Lispro sliding scale Ac and HS. Hypertension Lisinopril HLD will hold statin for now Depression continue paroxetine. Morbid obesity with H/O ANGEL reports that had a second sleep study done in [place] and was told that he no longer has sleep apnea. History of non-Hodgkin's lymphoma in neck underwent localized therapy with excision followed by radiation therapy in 2010 Leukopenia and thrombocytopenia had flow cytometry which was negative planned for bone marrow biopsy by hematology Liver cirrhosis on CT scan 06/25 and on liver biopsy 06/2010. due to hemochromatosis getting phlebotomy every 2 weeks VS,Fishbone, I+O VS, Fishbone, I+O Laboratory Tests 10/03/20 05:15 Vital Signs Date Time Temp Pulse Resp B/P (MAP) Pulse Ox O2 Delivery O2 Flow Rate FiO2 10/03/20 07:51 97.7 77 16 134/82 (99) 97 Room Air I&O- Last 24 Hours up to 6 AM 10/03/20 06:00 Intake Total 3420 ml Output Total 7775 ml Balance -4355 ml BETO GALLARDO DO Oct 03, 2020 11:28
[2020-10-03 12:00] VITALS: BP 148/71
--- NOTE | 2020-10-03 16:22 | DS.PDOC ---
Discharge Summary General Date of Admission Sep 29, 2020 at 14:58 Date of Discharge 10/03/20 Discharge Summary PROCEDURES PERFORMED DURING STAY: [None]. ADMITTING DIAGNOSES: Acute Pancreatitis Obstructive Jaundice DM Hypertension HLD Depression Morbid obesity with H/O ANGEL History of non-Hodgkin's lymphoma Leukopenia and thrombocytopenia Liver cirrhosis hemochromatosis DISCHARGE DIAGNOSES: Obstructive Jaundice DM Hypertension HLD Depression Morbid obesity with H/O ANGEL History of non-Hodgkin's lymphoma Leukopenia and thrombocytopenia Liver cirrhosis hemochromatosis COMPLICATIONS/CHIEF COMPLAINT: Pancreatitis,Obstructive Jaundice. HISTORY OF PRESENT ILLNESS:50 year old male with h/o cirrhosis due to hemochromatosis, thrombocytopenia, leucopenia, morbid obesity, h/o Hodgkin's lymphoma treated in 2010, DM, HTN, was transferred from [place] for Obstructive jaundice and pancreatitis with CT scan shows no biliary duct dilatation. Pat ient complains of dull aching abdominal pain in the periumbilical region and radiating around the sides to the back going on for 1 month but worse in the last 1 week. He also complains of nausea and vomiting and unable to keep food down. He was found to have obstructive jaundice with pancreatitis and rule out pancreatic mass. HOSPITAL COURSE: During hospital stay following issue addressed Acute Pancreatitis Improved IVF, morphine prn. CT of abdomen was done in the [facility] and showed normal contrast enhanced CT appearance of the pancreas, adrenal glands and kidneys. Spleen enlarged 17.8 cm. Status post cholecystectomy. No evidence of biliary duct dilatation. Possible mild cirrhosis. Ultrasound was done today and showed Status post prior cholecystectomy. Common bile duct 10 millimeters. Diffuse fibrofatty infiltration of the liver with apparent cirrhosis. Significant splenomegaly. There is a mass in the head of the pancreas approximately 3-4 centimeters in diameter. Reversal of flow in the left portal vein. Otherwise normal direction of flow in the remaining portal veins. Multiple venous varicosities visualized in the splenic hilum. No th rombus seen in any of the portal veins or hepatic veins. Dr. Rodriguez did ERCP: A localized biliary stricture or extrinsic compression is found in the lower third of the main bile duct. Cytology obtained - A localized pancreatic ductal stricture or extrinsic compression was found in the pancreatic head. Cytology obtained - Cells for cytology obtained in the ventral pancreatic duct in the head of the pancreas. - Cells for cytology obtained in the lower third of the main duct. - One temporary stent was placed into the ventral pancreatic duct. - One covered metal stent was placed into the common bile duct. - Biopsy was performed duodenal edema/erosions surrounding the papilla. Await biopsy result Obstructive Jaundice Secondary to possible malignancy versus stricture DM Lispro sliding scale Ac and HS. Hypertension Lisinopril HLD will hold statin for now Depression continue paroxetine. Morbid obesity with H/O ANGEL reports that had a second sleep study done in [place] and was told that he no longer has sleep apnea. History of non-Hodgkin's lymphoma in neck underwent localized therapy with excision followed by radiation therapy in 2010 Leukopenia and thrombocytopenia had flow cytometry which was negative planned for bone marrow biopsy by hematology Liver cirrhosis on CT scan 06/25 and on liver biopsy 06/2010. due to hemochromatosis getting phlebotomy every 2 weeks DISCHARGE MEDICATIONS: Please see below. ALLERGIES: Please see below. PHYSICAL EXAMINATION ON DISCHARGE: VITAL SIGNS: Please see below. GENERAL APPEARANCE: NAD HEENT: icterus, no JVD, EOMI CARDIOVASCULAR: S1S2 LUNGS: CTA ABDOMEN: Moderately tender in the left upper quadrant MUSCULOSKELETAL: no cyanosis, no swelling INTEGUMENT: Jaundice NEUROLOGICAL: cranial nerve function from 2-12 intact intact, follows commands, speech not dysarthric LABORATORY DATA: Please see below. IMAGING: [facility] NAME: AIDAN DENNY DATE OF : 1970 AGE: 50 SEX: M REPORT #: [id number] ROOM: [facility] TECHNOLOGIST: TIARRA DOCTOR: JOSÉ RODRIGUEZ MD Ordered for Date&Time: 10/01/20 1252 cc: [~ rep ct ivnm] Service Date&Time: 10/02/20 0816 This report is in Signed status. If this report is in a DRAFT status it has not yet been reviewed by the radiologist for accuracy. Thank you for having your radiology procedures performed at [facility] RADIOLOGY REPORT Date&Time printed: [~ rep prt dt last] [~ rep prt tm last] Page [address] of [address] [id number] RADIOLOGY REPORT This report is in Signed status. If this report is in a DRAFT status it has not yet been reviewed by the radiologist for accuracy. Thank you for having your radiology procedures performed at [facility] RADIOLOGY REPORT Date&Time printed: [~ rep prt dt last] [~ rep prt tm last] Page 1 of 1 INDICATION: pancreatitis,Jaundice. with Doppler portal vessels. COMPARISON: [facility] 09/29/2020. TECHNIQUE: Real-time sonographic evaluation of ABDOMEN PERFORMED, WITH DUPLEX DOPPLER EVALUATION OF PORTAL VASCULATURE. FINDINGS: Patient has had a prior cholecystectomy. There is no intrahepatic biliary dilatation. The common bile duct measures 10 mm in maximum diameter. The liver demonstrates heterogeneous increased echotexture with coarsening compatible with diffuse fibrofatty infiltration. There is likely an element of cirrhosis. No gross liver masses seen. The pancreas is not optimally visualized but there appears to be a hypoechoic mass in the head of the pancreas, approximately 3-4 centimeters in diameter. Spleen is significantly enlarged measuring 18.5 x 19.2 x 8.9 centimeters. There is no evidence of hydronephrosis, cyst, mass, or calculus in either kidney. The right kidney measures 12.7 x 6.8 x 6.3 cm. Left renal dimensions are 15.6 x 7.0 x 7.1 cm. No free fluid is seen. The main portal vein measures 11 mm in diameter. The main portal vein is patent with pulsatile waveform. Velocity in the main portal vein is 21 centimeter/second. There is reversal of flow in the left portal vein. The other portal veins demonstrate normal direction of flow. The splenic vein is only visualized in the splenic hilum with normal direction of flow, 27 centimeter/second. The superior mesenteric vein could not be visualized. Multiple varicosities are seen in the splenic hilum. There is no portal vein thrombosis. The waveform of the right hepatic vein is portalized. The middle hepatic vein is not visualized. The left hepatic vein demonstrates dampened phasicity.. Patent main hepatic artery demonstrates peak systolic velocity of 120 centimeters/second. IMPRESSION: Status post prior cholecystectomy. Common bile duct 10 millimeters. Diffuse fibrofatty infiltration of the liver with apparent cirrhosis. Significant splenomegaly. There is a mass in the head of the pancreas approximately 3-4 centimeters in diameter. Reversal of flow in the left portal vein. Otherwise normal direction of flow in the remaining portal veins. Multiple venous varicosities visualized in the splenic hilum. No thrombus seen in any of the portal veins or hepatic veins. <Electronically signed by Isaac Ferro > 10/02/20 1001 DD: Isaac Ferro MD, MD 10/02/20 0948 DT: MM 10/02/20 1001 DS: GRADA 10/02/2048 10/02/2048 [~ rep ct labl] PROGNOSIS: Depends on the biopsy result ACTIVITY: [As tolerated]. 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 DISCHARGE CONDITION: [Stable]. TIME SPENT ON DISCHARGE: Greater than 40 minutes. Vital Signs/I&Os Vital Signs Date Time Temp Pulse Resp B/P (MAP) Pulse Ox O2 Delivery O2 Flow Rate FiO2 10/03/20 14:48 16 10/03/20 14:29 Room Air 10/03/20 12:00 98.5 78 148/71 (96) 96 I&O- Last 24 Hours up to 6 AM 10/03/20 06:00 Intake Total 3420 ml Output Total 7775 ml Balance -4355 ml Laboratory Data Labs 24H Laboratory Tests 2 10/02/20 20:17: Bedside Glucose (Misc Panel) 209H 10/03/20 05:15: Immature Granulocyte % (Auto) 0.0, Neutrophils (%) (Auto) 63.4, Lymphocytes (%) (Auto) 23.6L, Monocytes (%) (Auto) 12.4H, Eosinophils (%) (Auto) 0.0, Basophils (%) (Auto) 0.6, Neutrophils # (Auto) 1.1L, Lymphocytes # (Auto) 0.4L, Monocytes # (Auto) 0.2, Eosinophils # (Auto) 0.0, Basophils # (Auto) 0.0, Nucleated Red Blood Cells % (auto) 0.0, Anion Gap 8, Glomerular Filtration Rate > 60.0, Calcium Level 8.9, Total Bilirubin 3.8H, Aspartate Amino Transf (AST/SGOT) 132H, Alanine Aminotransferase (ALT/SGPT) 264H, Alkaline Phosphatase 383H, Total Protein 7.6, Albumin 2.5L, Albumin/Globulin Ratio 0.5 10/03/20 11:56: Bedside Glucose (Misc Panel) 345H CBC/BMP Laboratory Tests 10/03/20 05:15 FSBS Laboratory Tests Test 10/02/20 20:17 10/03/20 11:56 Range/Units Bedside Glucose (Misc Panel) 209 345 70-105 MG/DL Discharge Medications Scheduled Alogliptin Benzoate (Nesina) 25 Mg Tablet, 25 MG PO DAILY, (Reported) Gabapentin (Neurontin) 100 Mg Cap, 100 MG PO TID, (Reported) Glipizide (Glipizide) 10 Mg Tablet, 10 MG PO BID, (Reported) Lisinopril (Lisinopril) 10 Mg Tab, 10 MG PO DAILY, (Reported) Paroxetine HCl (Paroxetine) 10 Mg Tablet, 10 MG PO DAILY, (Reported) Pioglitazone HCl (Pioglitazone HCl) 15 Mg Tablet, 15 MG PO DAILY, (Reported) Scheduled PRN Albuterol Sulfate (Proair Hfa) 8.5 Gm Hfa.aer.ad, 2 PUFF INH Q4H PRN for wheezing, (Reported) Hydroxyzine HCl (Hydroxyzine HCl) 50 Mg Tablet, 50 MG PO Q6H PRN for ANXIETY/AGITATION, (Reported) Meclizine HCl (Meclizine HCl) 25 Mg Tab, 25 MG PO Q8H PRN for NAUSEA OR VOMITING, (Reported) Allergies Coded Allergies: No Known Drug Allergies (Verified Allergy, Unknown, 09/29/20) BETO GALLARDO DO Oct 03, 2020 16:22
[2020-10-03] MEDS ORDERED: MOM 30ML SUSPENSION UDC PO ONE (17:00)
[2020-10-08 17:09] LABS: ANCA-ATYPICAL <1:20 titer (Neg:<1:20); ANTI-MITOCHONDRIAL ANTIBODY <20.0 Units (0.0-20.0); ANTINUCLEAR ANTIBODIES DIRECT Negative (Negative); CERULOPLASMIN 25.4 mg/dL (16.0-31.0); CYTOPLASMIC NEUTROP AB ANCA-C <1:20 titer (Neg:<1:20); LIVER-KIDNEY MICROSOMAL ABY <20.1 Units (0.0-20.0); PERINUCLEAR AB ANCA-P <1:20 titer (Neg:<1:20)
== END 2020-10-03 16:14 | disposition home or self-care (01) | DRG 282 ==
LOC: M PCU 14:58
PROVIDERS: ADMIT Family Medicine; ATTEND Internal Medicine
PROC: 0FB98ZX Excision of Common Bile Duct, Via Natural or Artificial Opening Endoscopic, Diagnostic (ICD-10-PCS; 2020-10-02)
PROC: 0DB98ZX Excision of Duodenum, Via Natural or Artificial Opening Endoscopic, Diagnostic (ICD-10-PCS; 2020-10-02)
PROC: 0F7D8DZ Dilation of Pancreatic Duct with Intraluminal Device, Via Natural or Artificial Opening Endoscopic (ICD-10-PCS; 2020-10-02)
PROC: 0F798DZ Dilation of Common Bile Duct with Intraluminal Device, Via Natural or Artificial Opening Endoscopic (ICD-10-PCS; 2020-10-02)
PROC: 0FBG8ZX Excision of Pancreas, Via Natural or Artificial Opening Endoscopic, Diagnostic (ICD-10-PCS; principal; 2020-10-02 15:30)
DX: K85.90 Acute pancreatitis without necrosis or infection, unspecified (principal); D69.6 Thrombocytopenia, unspecified; Z68.41 Body mass index [BMI] 40.0-44.9, adult; K83.1 Obstruction of bile duct; E66.01 Morbid (severe) obesity due to excess calories; K74.60 Unspecified cirrhosis of liver; E11.9 Type 2 diabetes mellitus without complications; I10 Essential (primary) hypertension; D72.819 Decreased white blood cell count, unspecified; E83.119 Hemochromatosis, unspecified; F32.9 Major depressive disorder, single episode, unspecified; E78.5 Hyperlipidemia, unspecified; Z85.79 Personal history of other malignant neoplasms of lymphoid, hematopoietic and related tissues; Z92.3 Personal history of irradiation; Z79.84 Long term (current) use of oral hypoglycemic drugs; Z79.899 Other long term (current) drug therapy; Z20.828 Contact with and (suspected) exposure to other viral communicable diseases

== ENCOUNTER 2021-01-03 16:02 | Inpatient (IN) | payer OTHER ==
[~2021-01-03] VITALS: Ht 177.8 cm; Wt 133.7 kg
[~2021-01-03 16:02] MED LIST changes: +BASA100I SC; +HYDR50TA70 PO; +IBUP1TAB7 PO; +LISI10TA22 PO; -LISI10TA4 PO; +LORA1TAB4 PO; +ONDA8TAB10 PO; +PROC10TA4 PO
--- OUTSIDE RECORDS SUMMARY | 2021-01-03 16:12 | CCD | Continuity of Care Document ---
Author Author Sheri VILLASENOR PUBLIC SERVICE ADMINISTRATOR Organization Unknown Address [address] [place] [address] Phone [phone] Care Team Providers Care Product Specialist Name Role Phone [facility] AUTM [facility] AUTM [phone] [facility]M [phone] Lisa Verdugo PA-C AUTM [phone] Raad Rico MD AUTM [facility] AUTM [phone] Problems Active Problems Provider Date Type 2 diabetes mellitus Brad Gregory MD Onset: 09/08/20 16 Neutropenia Brad Gregory MD Onset: 09/08/2016 Hyperlipidemia Brad Gregory MD Onset: 09/08/2016 Essential hypertension Brad Gregory MD Onset: 09/08/2016 Dizziness and giddiness Brad Gregory MD Onset: 6 Type II diabetes mellitus uncontrolled Brad Gregory MD O nset: 10/12/2016 Chronic obstructive lung disease Brad Gregory MD Onset: 10/12/2016 Disturbance in sleep behavior Brad Gregory MD Onset: Acute bronchitis Brad Gregory MD Onset: 03/08/2017 Otalgia Brad Gregory MD Onset: 03/08/2017 Anxiety state Brad Gregory MD Onset: 03/08/2017 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 Kia Verdugo PA-C Onset: 06/25/2020 Pure hypercholesterolemia Gene Carvajal MD Onset: 020 Social History Type Date Description Comments Sex Unknown Tobacco Use Start: Unknown End: Unknown Quit Tobacco Use Start: Unknown Never Smoked Cigars Tobacco Use Start: Unknown Never Smoked A Pipe Tobacco Use Start: Unknown Current Smokeless Tobacco User, Uses Occasionally ETOH Use Denies alcohol use Tobacco Use Start: Unknown Chews Tobaccoo Recreational Drug Use Denies Drug Use Tobacco Use Start: Unknown End: Unknown Patient is a former smoker QUIT 18 YEARS AGO Allergies, Adverse Reactions, Alerts Active Allergies Reaction Severity Comments Date NKDA 09/08/2016 NKFA 09/08/2016 NKEA 09/08/2016 Medications Active Medications SIG Qnty Indications Ordering Provide r Date Ondansetron 8mg Tablets Dispers 1 tab by mouth every 6-8 hours as needed for nausea 90tabs Ayo Gregory MD 12/03/2020 Onetouch Ultra Strips test four times a day 150units Brad Gregory MD 11/18/2020 Onetouch Delica Lancets Extra Fine 33G Misc use once a day 100units Brad Gregory MD 2019 Basaglar Kwikpen 100 Unit/ML Solution Pen-Inject 14 units subcutaneous every day 9ml Brad Gregory MD 10/07/2020 Insulin Syringes/0.5ML/31GX 5/16" 31G X 5/16" 0.5 ML Misc Use with basaglar 90units Brad Gregory MD 1 12/07/2019 Ibuprofen 800mg Tablets 1 tab by mouth three times a day as needed 90tabs Brad Gregory MD 07/25/2020 Pioglitazone HCL 15mg Tablets take one tablet by mouth every day 30tabs Brad Gregory MD Albuterol Sulfate HFA 108(90Base) mcg/Act Aerosol use 1-2 puffs by mouth every 6 hours as needed 18units J 20.9 Brad Gregory MD 11/28/2019 J44.9 Hydroxyzine HCL 50mg Tablets Take 1-2 Tablets By Mouth Every 6 Hours as Needed 120tabs Brad Gregory MD 07/28/2019 Paroxetine HCL 10mg Tablets take one tablet by mouth every day 90tabs F41.9 Brad Gregory MD Freestyle Santosh/Sensor/Flash Monitoring System Misc use as directed 3units Brad Gregory MD 10/21 Freestyle Santosh/Dryden/Flash Monitoring System Device use as directed 1units E11.9 Brad Gregory MD 10/21 E11.65 Glipizide 10mg Tablets take one tablet by mouth twice a day 180tabs E11.9 Brad Gregory MD 10/06/2017 E11.8 E11.65 Glucometer Device use daily 1units E11.9 Brad Gregory MD 09/08/2016 Gabapentin 100mg Capsules take one capsule by mouth every 8 hours 270caps Brad Gregory MD 09/08 Lisinopril 10mg Tablets take one tablet by mouth every day 90tabs I10 Brad Gregory MD 05/19/2016 Epipen 2-Shankar 0.3mg/0 .3ML Solution Auto-Inject 0.3 mg intramuscular as needed 2units Brad Gregory MD Morphine Sulfate (Concentrate) 100mg/5ML Solution Unknown Creon [id number] Caps DR Part 1 tab by mouth three times a day before meals Unknown Medical Marijuana Unknown /0 000 History Medications Zofran 4mg Tablets take 1 tab by mouth every 6-8 hours for nausea. max daily dose is 4 tabs. 90tabs Brad Gregory MD 12/03/2020 - 12/03/2020 Amoxicillin/Clavulanate Potassium 875-125mg Tablets 1 by mouth twice a day 14tabs Shelli Mcmullen MD 07/17/2020 - 07/31/2020 Medications Administered in Office Medication SIG Qnty Indications Ordering Provider Date cefTRIAXone(Rocephin) Vial 1 G In jection Shelli Mcmullen MD 07/17/2020 Immunizations CPT Code Status Date Vaccine Lot # [id number] Given 07/25/2020 Influenza (>= 6 Months) P.F. Vaccine [id number] Vital Signs Date Vital Result Comment 12/02/2020 5:27pm Heart Rate 83 /min Body Temperature 97.7 F O2 % BldC Oximetry 96 % 11/11/2020 8:34am BP Systolic 124 mmHg BP Diastolic 82 mmHg Heart Rate 101 /min Body Temperature 97.9 F Respiratory Rate 16 /min O2 % BldC Oximetry 96 % Weight 295.12 lb Weight 133.869 kg Height 70 inches 5'10" BMI (Body Mass Index) 42.3 kg/m2 BSA (Body Surface Area) 2.46 m2 Results Test Acquired Date Facility Test Result H/L Range Note Inhouse-Influenza A&B Rna Prob 12/02/2020 In Office Influenza Virus A QL PCR negative Influenza Virus B QL PCR negative Covid-19 12/02/2020 [facility] Sars-CoV-2, Susu Detected Abnormal Not Detected 1 Order Covid 19 2 Day YES Urinalysis 09/29/2020 [facility] Urinalysis (SEE NOTE) 2, 3 Source R Color lucio Normal: Yellow Clarity hazy Normal: Clear Spec [place] 1.015 1.001 - 1.030 pH 5 5 - 9 Glucose 1000 Abnormal Normal: Negative Bilirubin 3 Normal: Negative Ketone 50 Abnormal Normal: Negative Protein 15 Normal: Negative Nitrite POS Normal: Negative Blood 10 Abnormal Normal: Negative Leuk Est 25 Normal: Negative Urobilinogen 4 less than 1.0 mg/dL Microscopic See Below WBC 10 - 15 Abnormal Normal: None Seen RBC 1 - 3 Normal: None Seen Epithelial FEW Normal: None Seen Bacteria 3+ LARGE Abnormal Normal: None Seen Cuture Urine 09/29/2020 [facility] Culture Urine (SEE NOTE) 4 Laboratory test finding 09/29/2020 [facility] Lactic Acid (Lactate) 1.7 mmol/L 0.2 - 2.2 PTT 29.4 seconds 24.8 - 36.7 Pro-BNP 43 pg/mL 0 - 125 Comprehensive Metabolic Panel 09/29/2020 [facility] Comprehensive Metabo (SEE NOTE) 5 Sodium 133 mEq/L Low 134 - 153 Potassium 3.8 mEq/L 3.6 - 5.0 Chloride 97 mEq/L Low 98 - 107 Co2 24 mEq/L 22 - 30 Glucose 287 mg/dL High 65 - 110 BUN 8 mg/dL 7 - 21 Creatinine 0.4 mg/dL Low 0.7 - 1.5 BUN/Creat 20 8 - 27 Total Protein 7.8 g/dL 6.3 - 8.2 Albumin 3.8 g/dL Low 3.9 - 5.0 Globulin 4.0 GM/DL High 2.4 - 3.2 A/G Ratio 1.0 0.8 - 2.0 Calcium 9.6 mg/dL 8.4 - 10.2 Total Bili 5.5 mg/dL High 0.2 - 1.3 Alkaline Phos 394 U/L High 38 - 126 Sgot/Ast 229 U/L High 5 - 40 SGPT/Alt 343 U/L High 7 - 56 Anion Gap 12.0 mmol/L 8.0 - 16.0 Age 50 yrs Non-Aa GFR >60 mL/min Afr Amer GFR >60 mL/min 6 CBC W/Automated Diff 09/29/2020 [facility] CBC W/Automated Diff (SEE NOTE) 7 WBC 2.3 10^3/uL Low 4.2 - 11.0 RBC 4.94 10^6/uL 4.50 - 6.30 Hemoglobin 16.0 g/dL 14.0 - 16.0 Hematocrit 46.0 % 41.0 - 51.0 MCV 93.1 fL 80.0 - 94.0 MCH 32.4 pg 27.0 - 34.0 MCHC 34.8 g/dL 31.0 - 36.0 RDW 13.2 % 11.5 - 14.8 Platelets 128 10^3/uL Low 150 - 450 MPV 10.2 fL 7.4 - 10.4 Neut 55.0 % 37.0 - 80.0 Lymph 23.8 % Low 25.0 - 40.0 Bollinger 19.0 % High 3.0 - 8.0 Eos 1.3 % 0.0 - 7.0 Baso 0.9 % 0.0 - 2.0 %Ig 0.0 % 0.0 - 0.0 %NRBC 0.0 % 0.0 - 0.0 #Neut 1.27 10^3/uL Low 2.00 - 6.90 #Lymph 0.55 10^3/uL Low 0.60 - 3.40 #Bollinger 0.44 10^3/uL 0.00 - 0.90 #Eos 0.03 10^3/uL 0.00 - 0.70 #Baso 0.02 10^3/uL 0.00 - 0.20 #Ig 0.00 10^3/uL 0.00 - 0.10 #NRBC 0.00 10^3/uL 0.00 - 0.00 Manual Diff SEE BELOW Segs 58 % 37 - 80 %Lymph 20 % Low 25 - 40 %Bollinger 20 % High 3 - 8 Charla Lym 2 % RBC Morph SEE BELOW Aniso 1+ Abnormal Normal: None Seen 8 PLT Est NORMAL Normal: Normal 9 Laboratory test finding 09/29/2020 [facility] Troponin T <0.01 NG/ML 0.00 - 0.10 10 Lipase Serum 1102 U/L High 13 - 60 Protime 09/29/2020 [facility] Protime 11.3 seconds 11.0 - 15.5 11 Inr 1.10 0.93 - 1.23 12 CBC W/Automated Diff 08/27/2020 [facility] CBC W/Automated Diff (SEE NOTE) 13 WBC 2.2 10^3/uL Low 4.2 - 11.0 RBC 4.68 10^6/uL 4.50 - 6.30 Hemoglobin 15.0 g/dL 14.0 - 16.0 Hematocrit 43.6 % 41.0 - 51.0 MCV 93.2 fL 80.0 - 94.0 MCH 32.1 pg 27.0 - 34.0 MCHC 34.4 g/dL 31.0 - 36.0 RDW 13.0 % 11.5 - 14.8 Platelets 117 10^3/uL Low 150 - 450 MPV 9.4 fL 7.4 - 10.4 Neut 41.9 % 37.0 - 80.0 Lymph 37.2 % 25.0 - 40.0 Bollinger 18.1 % High 3.0 - 8.0 Eos 2.3 % 0.0 - 7.0 Baso 0.5 % 0.0 - 2.0 %Ig 0.0 % 0.0 - 0.0 %NRBC 0.0 % 0.0 - 0.0 #Neut 0.90 10^3/uL Low 2.00 - 6.90 #Lymph 0.80 10^3/uL 0.60 - 3.40 #Bollinger 0.39 10^3/uL 0.00 - 0.90 #Eos 0.05 10^3/uL 0.00 - 0.70 #Baso 0.01 10^3/uL 0.00 - 0.20 #Ig 0.00 10^3/uL 0.00 - 0.10 #NRBC 0.00 10^3/uL 0.00 - 0.00 Manual Diff SEE BELOW Segs 49 % 37 - 80 %Lymph 40 % 25 - 40 %Bollinger 10 % High 3 - 8 %Eos 1 % 0 - 7 RBC Morph SEE BELOW 14 PLT Est DECREASED Abnormal Normal: Normal 15 Laboratory test finding 08/27/2020 [facility] Ferritin Denisse 870.9 ng/mL High 5.0 - 244 Comprehensive Metabolic Panel 08/27/2020 [facility] Comprehensive Metabo (SEE NOTE) 16 Sodium 134 mEq/L 134 - 153 Potassium 3.8 mEq/L 3.6 - 5.0 Chloride 100 mEq/L 98 - 107 Co2 25 mEq/L 22 - 30 Glucose 325 mg/dL High 65 - 110 BUN 7 mg/dL 7 - 21 Creatinine 0.5 mg/dL Low 0.7 - 1.5 BUN/Creat 14 8 - 27 Total Protein 7.9 g/dL 6.3 - 8.2 Albumin 3.7 g/dL Low 3.9 - 5.0 Globulin 4.2 GM/DL High 2.4 - 3.2 A/G Ratio 0.9 0.8 - 2.0 Calcium 8.9 mg/dL 8.4 - 10.2 Total Bili 0.9 mg/dL 0.2 - 1.3 Alkaline Phos 87 U/L 38 - 126 Sgot/Ast 29 U/L 5 - 40 SGPT/Alt 36 U/L 7 - 56 Anion Gap 9.0 mmol/L 8.0 - 16.0 Age 50 yrs Non-Aa GFR >60 mL/min Afr Amer GFR >60 mL/min 17 Iron Binding Capacity 08/27/2020 [facility] Iron 103 g/dL 42 - 135 Uibc 84 g/dL Low 112 - 347 Tibc 187 g/dL Low 250 - 450 Iron Sat 55 % PT/PTT 08/27/2020 [facility] Protime 13.6 seconds 11.0 - 15.5 Inr 1.03 0.93 - 1.23 PTT 29.2 seconds 24.8 - 36.7 18 Laboratory test finding 07/17/2020 [facility] Culture Wound (SEE NOTE) 19, 20 CBC W/Automated Diff 06/25/2020 [facility] CBC W/Automated Diff (SEE NOTE) 21, 22 WBC 1.9 10^3/uL Low 4.2 - 11.0 RBC 4.93 10^6/uL 4.50 - 6.30 Hemoglobin 15.7 g/dL 14.0 - 16.0 Hematocrit 46.0 % 41.0 - 51.0 MCV 93.3 fL 80.0 - 94.0 MCH 31.8 pg 27.0 - 34.0 MCHC 34.1 g/dL 31.0 - 36.0 RDW 14.1 % 11.5 - 14.8 Platelets 114 10^3/uL Low 150 - 450 MPV 9.7 fL 7.4 - 10.4 Neut 31.3 % Low 37.0 - 80.0 Lymph 41.9 % High 25.0 - 40.0 Bollinger 23.1 % High 3.0 - 8.0 Eos 3.2 % 0.0 - 7.0 Baso 0.5 % 0.0 - 2.0 %Ig 0.0 % 0.0 - 0.0 %NRBC 0.0 % 0.0 - 0.0 #Neut 0.58 10^3/uL Low 2.00 - 6.90 #Lymph 0.78 10^3/uL 0.60 - 3.40 #Bollinger 0.43 10^3/uL 0.00 - 0.90 #Eos 0.06 10^3/uL 0.00 - 0.70 #Baso 0.01 10^3/uL 0.00 - 0.20 #Ig 0.00 10^3/uL 0.00 - 0.10 #NRBC 0.00 10^3/uL 0.00 - 0.00 Manual Diff SEE BELOW Segs 31 % Low 37 - 80 Band 1 % 0 - 5 %Lymph 53 % High 25 - 40 %Bollinger 14 % High 3 - 8 %Eos 1 % 0 - 7 RBC Morph SEE BELOW 23 PLT Est DECREASED Abnormal Normal: Normal 24 Comprehensive Metabolic Panel 06/25/2020 [facility] Comprehensive Metabo (SEE NOTE) 25 Sodium 137 mEq/L 134 - 153 Potassium 3.7 mEq/L 3.6 - 5.0 Chloride 103 mEq/L 98 - 107 Co2 26 mEq/L 22 - 30 Glucose 164 mg/dL High 65 - 110 BUN 7 mg/dL 7 - 21 Creatinine 0.6 mg/dL Low 0.7 - 1.5 BUN/Creat 12 8 - 27 Total Protein 7.8 g/dL 6.3 - 8.2 Albumin 4.1 g/dL 3.9 - 5.0 Globulin 3.7 GM/DL High 2.4 - 3.2 A/G Ratio 1.1 0.8 - 2.0 Calcium 8.8 mg/dL 8.4 - 10.2 Total Bili 0.9 mg/dL 0.2 - 1.3 Alkaline Phos 78 U/L 38 - 126 Sgot/Ast 30 U/L 5 - 40 SGPT/Alt 37 U/L 7 - 56 Anion Gap 8.0 mmol/L 8.0 - 16.0 Age 50 yrs Non-Aa GFR >60 mL/min Afr Amer GFR >60 mL/min 26 Laboratory test finding 06/25/2020 [facility] Hgba1c 8.2 % High 4.4 - 6.1 27 TSH Highly Sensitive 2.06 uIU/mL 0.47 - 5.01 Cve Panel 06/25/2020 [facility] Cve Panel (SEE NOTE) 28 Cholesterol 131 mg/dL 131 - 200 Triglycerides 138 mg/dL 35 - 160 HDL 49 mg/dL 29 - 86 LDL 61 mg/dL Low 65 - 175 Risk Factor 2.7 Low 3.4 - 4.9 LDL/HDL 1.24 1.00 - 3.55 29 Laboratory test finding 06/25/2020 [facility] Lipase Serum 63 U/L High 13 - 60 Amylase 92 U/L 30 - 110 Vitamin D (25-Hydroxy) 19 NG/ML 30 1 This nucleic acid amplificat ion test was developed and its performance characteristics determined by [employer]. Nucleic acid amplification tests include RT-PCR and TMA. This test has not been FDA cleared or approved. This test has been authorized by FDA under an Emergency Use Authorization (EUA). This test is only authorized for the duration of time the declaration that circumstances exist justifying the authorization of the emergency use of in vitro diagnostic tests for detection of SARS-CoV-2 virus and/or diagnosis of COVID-19 infection under section 564(b)(1) of the Act, 21 U.S.C. 360bbb-3(b) (1), unless the authorizatio n is terminated or revoked sooner. When diagnostic testing is negative, the possibility of a false negative result should be considered in the context of a patient's recent exposures and the presence of clinical signs and symptoms consistent with COVID-19. An individual without symptoms of COVID-19 and who is not shedding SARS-CoV-2 virus would expect to have a negative (not detected) result in this assay. 2 SOURCE: Clean Catch 3 URINALYSIS 4 _CULTURE URINE_ ^$[id number] ^^[id number] $$[id number] ^^984439 $$[id number] $$078879 $$352081 $$434895 $$609460 $$430458 $$162612 $$382303 $$463222 $$733019 $$432011 $$660340 $$257567 $$220405 $$545812 $$268515 $$491276 $$840919 $$619828 $$269916 $$070712 $$308551 $$480131 ^^270445 $$248733 $$435444 $$764570 -- Continued on next page -- Patient: DENISHA Gutierrez Order: [id number] Page 2 Culture: CULTURE URINE Status: Final $$[id number] $$[id number] REPORTED DATE/TIME: 10/03/2020 12:06 Culture: CULTURE URINE Status: Final Isolate 1 Escherichia coli Flag: A . . . . . . .1 50,000-100,000 colony forming units per mL Cefazolin <=4 ug/mL Cefazolin with an TATIANA <=16 predicts susceptibility to the oral agents cefaclor, cefdinir, cefpodoxime, cefprozil, cefuroxime, cephalexin, and loracarbef when used for therapy of uncomplicated urinary tract infections due to E. coli, Klebsiella pneumoniae, and Proteus mirabilis. Previous result entered on 10/02/2020 01:51 ET Escherichia coli Urine Culture,Comprehensive: P1 Escherichia coli Flag: A Patient: DENISHA Gutierrez Order: [id number] Page 3 Culture: CULTURE URINE Status: Final ISOLATE 1 Escherichia coli Isolate 1 Antibiotic TATIANA Int Units ug/mL Amoxicillin/Clavulanic Acid S S . . . . . .20-8 Ampicillin R R . . . . . .28-1 Cefepime S S . . . . . .6644-9 Ceftriaxone S S . . . . . .141-2 Cefuroxime S S . . . . . .145-3 Ciprofloxacin S S . . . . . .185-9 Ertapenem S S . . . . . .77980-0 Gentamicin S S . . . . . .267-5 Imipenem S S . . . . . .279-0 Levofloxacin S S . . . . . .66281-6 Meropenem S S . . . . . .6652-2 Nitrofurantoin S S . . . . . .363-2 Piperacillin/Tazobactam S S . . . . . .412-7 Tetracycline S S . . . . . .496-0 Tobramycin S S . . . . . .508-2 Trimethoprim/Sulfa S S . . . . . .516-5 P1 Test performed by: [facility] Horace VILLEGAS #: [id number] [address] [place] [address] [address] [id number] [facility] [address] House Admin : Jasiel Pedraza MD NPI #: Disposition Clerk : 10/03/20.1241.XMT.SENT REF 5 COMPREHENSIVE METABOLIC PANE L 6 Male GFR Interprentation 20-49 yrs >60 mL/min Normal 50-59 yrs >56 mL/min Normal 60-69 yrs >49 mL/min Normal 70-79yrs >42 mL/min Normal 80 and above >35 mL/min Normal Female GFR Interpretation 20-39 yrs >60 mL/min Normal 40-49 yrs >58 mL/min Normal 50-59 yrs >51 mL/min Normal 60-69 yrs >45 mL/min Normal 70-79 yrs >39 mL/min Normal 80 and above >32 mL/min Normal 7 COMPLETE BLOOD COUNT 8 { SICKLE CELL (NORMAL: NONE SEEN ) 9 COMMENT: 10 TROPONIN T 0.1 ng/ml Recommended as the clinical th reshold value for Troponin T. 11 [place] [address] CLIA# [id number] SEE SCANNED REPORT 12 \\BLDo\\INR INTERPRETATION\\BLD x\\ Therapeutic range for Coumadin and related oral anticoagulants. -International Normalized Ratio (INR): 2 .0 - 3.0 for Venous Thrombosis, Pulmonary Embolus, Tissue heart valves, Acute [place], Atrial Fibrillation, Valvular heart disease and recurrent Systemic Embolism. -International Normalized Ratio (INR): 2 .5 - 3.5 for Mechanical Prosthetic valve. 13 COMPLETE BLOOD COUNT 14 { SICKLE CELL (NORMAL: NONE SEEN ) 15 COMMENT: 16 COMPREHENSIVE METABOLIC PANE L 17 Male GFR Interprentation 20-49 yrs >60 mL/min Normal 50-59 yrs >56 mL/min Normal 60-69 yrs >49 mL/min Normal 70-79yrs >42 mL/min Normal 80 and above >35 mL/min Normal Female GFR Interpretation 20-39 yrs >60 mL/min Normal 40-49 yrs >58 mL/min Normal 50-59 yrs >51 mL/min Normal 60-69 yrs >45 mL/min Normal 70-79 yrs >39 mL/min Normal 80 and above >32 mL/min Normal 18 \\BLDo\\INR INTERPRETATION\\BLD x\\ Therapeutic range for Coumadin and related oral anticoagulants. -International Normalized Ratio (INR): 2 .0 - 3.0 for Venous Thrombosis, Pulmonary Embolus, Tissue heart valves, Acute [place] Atrial Fibrillation, Valvular heart disease and recurrent Systemic Embolism. -International Normalized Ratio (INR): 2 .5 - 3.5 for Mechanical Prosthetic valve. 19 {SPECIMEN SOURCE : R CHEST ABCESS 20 _CULTURE WOUND_ ^^[id number] ^$607561 $$538408 ^^917543 $$956036 $$293982 $$914401 $$147785 $$[id number] REPORTED DATE/TIME: 07/21/2020 12:05 Culture: CULTURE WOUND Status: Final Aerobic Bacterial Culture: P1 Skin lilliam isolated Scant growth Previous result entered on 07/20/2020 13:20 ET Microbiological testing to rule out the presence of possible pathogens is in progress. Isolate 1 Beta hemolytic Streptococcus, group A Flag: A . . . . . . .4 Moderate growth Penicillin and ampicillin are drugs of choice for treatment of beta-hemolytic streptococcal infections. Susceptibility testing of penicillins and other beta-lactam agents approved by the FDA for treatment of beta-hemolytic streptococcal infections need not be performed routinely because nonsusceptible isolates are extremely rare in any beta-hemolytic streptococcus and have not been reported for Streptococcus pyogenes (group A). (CLSI) Previous result entered on 07/20/2020 13:20 ET -- Continued on next page -- Patient: DENISHA Gutierrez Order: [id number] Page 2 Culture: CULTURE WOUND Status: Final Beta hemolytic Streptococcus, group A Previous result entered on 07/19/2020 05:40 ET Beta hemolytic Streptococcus, group A Beta hemolytic Streptococcus, group A Flag: A P1 [facility] performed [facility]: [id number] [address] [place] [id number] [facility] [address] House Admin : Jasiel Pedraza MD NPI #: Disposition Clerk : 07/19/20.0829.XMT.SENT REF 07/20/20.2301.XMT.SENT REF 07/21/20.2244.XMT.SENT REF 07/21/20.2244.DW .to [facility] via fax 21 FASTING 8 HOUR~.~.~<DG1.3.1>R10.84</DG1.3.1><DG1.3.1>R10.84</DG1.3.1><DG1.3.1>R10.84</DG1. 3.1><DG 22 COMPLETE BLOOD COUNT 23 { SICKLE CELL (NORMAL: NONE SEEN ) 24 COMMENT: 25 COMPREHENSIVE METABOLIC PANE L 26 Male GFR Interprentation 20-49 yrs >60 mL/min Normal 50-59 yrs >56 mL/min Normal 60-69 yrs >49 mL/min Normal 70-79yrs >42 mL/min Normal 80 and above >35 mL/min Normal Female GFR Interpretation 20-39 yrs >60 mL/min Normal 40-49 yrs >58 mL/min Normal 50-59 yrs >51 mL/min Normal 60-69 yrs >45 mL/min Normal 70-79 yrs >39 mL/min Normal 80 and above >32 mL/min Normal 27 {A1] {HB] 28 LIPID PANEL 29 CVE RISK CHOL/HDL LDL/HDL MEN: 1/2 AVERAGE 3.43 1.00 AVERAGE 4.97 3.55 2X AVERAGE 9.55 6.25 3X AVERAGE 23.99 7.99 WOMEN: 1/2 AVERAGE 3.27 1.47 AVERAGE 4.44 3.22 2X AVERAGE 7.05 5.03 3X AVERAGE 11.04 6.14 30 VITAMIN-D(25HYDROXY) Deficiency: <=20 ng/ml Insufficiency: 21-29 ng/ml Preferred level: => 30 ng/ml Procedures Date Code Description Status 07/17/2020 07333 I & D Abscess Simple Completed Medical Devices Description No Information Available Encounters Type Date Location Provider Dx Diagnosis Office Visit 12/05/2020 10:[facility] Lisa Verdugo PA-C U07 .1 Covid-19 C25.9 Malignant neoplasm of pancre as, unspecified E11.9 Type 2 diabetes mellitus wit hout complications Assessments Date Code Description Provider 12/05/2020 U07.1 Covid-19 OPAL Forman 12/05/2020 C25.9 Malignant neoplasm of pancreas, unspecified Lisa Verdugo PA-C 12/05/2020 E11.9 Type 2 diabetes mellitus without complications Lisa Verdugo PA-C 12/02/2020 R53.83 Other fatigue Star Rashmi Villasenor , PUBLIC SERVICE ADMINISTRATOR 11/11/2020 C25.9 Malignant neoplasm of pancreas, unspecified Lisa Verdugo PA-C 11/11/2020 E83.119 Hemochromatosis, unspecified Kia se DIANE Verdugo 11/11/2020 C85.90 Non-Hodgkin lymphoma, unspecifie d, unspecified site Lisa Verdugo PA-C 11/11/2020 E11.9 Type 2 diabetes mellitus without complications Lisa Verdugo PA-C 10/08/2020 K85.90 Acute pancreatitis without necro sis or infection, unspecified Lisa Verdugo PA-C 10/08/2020 E11.9 Type 2 diabetes mellitus without complications Lisa Verdugo PA-C 08/01/2020 L02.411 Cutaneous abscess of right axill a Gene Carvajal MD 07/25/2020 L02.411 Cutaneous abscess of right axill a Lisa Verdugo PA-C 07/25/2020 R10.84 Generalized abdominal pain Lisa Verdugo PA-C 07/25/2020 Z23 Encounter for immunization Lisa Verdugo PA-C 07/25/2020 E83.119 Hemochromatosis, unspecified Kia se DIANE Verdugo 07/17/2020 L02.213 Cutaneous abscess of chest wall Gene Carvajal MD 07/17/2020 L02.411 Cutaneous abscess of right axill a Shelli Mcmullen MD 07/17/2020 E11.9 Type 2 diabetes mellitus without complications Shelli Mcmullen MD 06/25/2020 R10.84 Generalized abdominal pain Lisa Verdugo PA-C 06/25/2020 E11.9 Type 2 diabetes mellitus without complications Lisa Verdugo PA-C 06/25/2020 I10 Essential (primary) hypertension Lisa Verdugo PA-C 06/25/2020 C85.90 Non-Hodgkin lymphoma, unspecifie d, unspecified site Lisa Verdugo PA-C Plan of Treatment Future Appointment(s):* 12/12/2020 8:20 am - Lisa [facility]-C at [facility] 12/05/2020 - Lisa Verdugo PA-C* U07.1 Covid-19* Comments:* He was told antibiotic is not indicated because it is virus. Recommended plenty of fluids and nutrition and make sure to keep his BS in normal range. He can drink Gatorade or trey eren as he has been if BSs are too low and he is having t rouble with solid food secondary to nausea. He should continue zofran. I did tell him he may be a candidate for monoclonal antibodies treatment due to high risks of having severe complications of COVID. He was advised to contact and ask that they have any available and whether he is candidate for treatment. He should go to ER, if he has severe symptoms or if he is not able to keep the fluids or food down. Recommended to stay home and stay away from public gathering. * C25.9 Malignant neoplasm of pancreas, unspecified* Comments:* he was supposed to start chemo today, but it was delayed due to diagnosis of COVID. * E11.9 Type 2 diabetes mellitus without complications* Comments:* Readings are 60-200. Continue with current medications. Continue to follow a diabetic diet like low carb intake/sugar intake/avoiding snacking in the night time or after dinner and a regular exercise regimen. Advised to continue checking BS at home, fasting and 2 hr PP before and after insulin. He will let us know if he has reading below 100. Functional Status Description No Information Available Mental Status Description No Information Available Referrals Refer to Reason for Referral Status Appt Date [facility] 50-year-old male with subcut aneous abscess on the right infra-axillary area with 1 small opening that was draining purulent material. There is an area of 6 x 3 cm induration which was erythematous and tender. Please evaluate and treat. Thank you. Closed [address] [place], [place] [id number] [phone] Raad Rico MD 50 year old male with his tory of GRIGGS and recently discovered liver cirrhosis after CT was ordered due to abdominal pain. Please evaluate and treat. Thank you. Patient Notified 08/29/2020 [address] [place], [place] [id number] [phone] [facility] [address] [facility] 50 year old male with hi story of Non-Hodgkin's Lymphoma. Patient states that he has been cancer free for 4 years. He states he was previously seen by [facility] but has not been seen in quite a while and would like to reestablish. He also has leukopenia and low platelet count. He was recently discovered to have liver cirrhosis which is currently being worked up. Please evaluate and treat. Thank you. Closed 07/24/2020 [address] [place] [address] [phone]
--- OUTSIDE RECORDS SUMMARY | 2021-01-03 16:12 | CCD | Continuity of Care Document ---
Author Author Sheri BELL PA-C Organization Unknown Address [address] [place] [address] Phone [phone] Care Team Providers Care Information Systems Manager Name Role Phone [facility] AUTM [phone] Lisa Bell PA-C AUTM [phone] Raad Rico MD AUTM [facility] AUTM [phone] Problems Active Problems Provider Date Type 2 [...] of extranodal AND/OR solid organ site Kia Bell PA-C Onset: 06/25/2020 Pure hypercholesterolemia Gene Carvajal [...] SIG Qnty Indications Ordering Provide r Date Onetouch Delica Plus Lancets Extra Fine 33G Plus 33G Misc use to test blood sugar four times a day 400units Brad Gregory MD 12/09/2020 Ondansetron 8mg Tablets Dispers 1 tab by mouth every 6-8 hours as needed for nausea 90tabs Ayo Gregory MD 12/03/2020 Onetouch Ultra Strips test four times a day due to insulin use 400units Brad Gregory MD 11/18 Basaglar Kwikpen 100 Unit/ML Solution Pen-Inject 14 units subcutaneous every day 9ml Brad Gregory MD 10/07/2020 Insulin Syringes/0.5ML/31GX 5/16" 31G X 5/16" 0.5 ML Misc use with basaglar 90units Brad Gregory MD 1 [...] Mouth Every 6 Hours as Needed 120tabs Brda Gregory MD 07/28/2019 Paroxetine HCL 10mg Tablets take one tablet by mouth every day 90tabs F41.9 Brad Gregory MD Glipizide 10mg Tablets take one tablet by mouth twice a day 180tabs E11.9 Brad Gregory MD 10/06/2017 E11.8 E11.65 Glucometer Device use daily 1units E11.9 Brad Gregory MD 09/08/2016 Gabapentin 100mg Capsules take one capsule by mouth every 8 hours 270caps Brad Gregory MD 09/08 Lisinopril 10mg Tablets take one tablet by mouth every day 90tabs I10 Brda Gregory MD 05/19/2016 Epipen 2-Shankar 0.3mg/0 .3ML Solution Auto-Inject 0.3 mg intramuscular as needed 2units Brad Gregory MD Morphine Sulfate (Concentrate) 100mg/5ML Solution Unknown Creon 30599Yell Caps DR Part 1 tab by mouth three times a day before meals Unknown Medical Marijuana Unknown 000 History Medications Zofran 4mg Tablets take 1 tab by mouth every 6-8 hours for nausea. max daily dose is 4 tabs. 90tabs Brad Gregory MD 12/03/2020 - 12/03/2020 Onetouch Delica Lancets Extra Fine 33G Misc use four times per day 100units Bogdan Carranza 10/15/2020 - 12/09/2020 Amoxicillin/Clavulanate Potassium 875-125mg Tablets 1 by mouth twice a day 14tabs Shelli Mcmullen MD 07/17/2020 - 07/31/2020 Medications Administered in Office Medication SIG Qnty Indications Ordering Provider Date cefTRIAXone(Rocephin) Vial 1 G In jection Shelli Mcmullen MD 07/17/2020 Immunizations CPT Code Status Date Vaccine Lot # [id number] Given 07/25/2020 Influenza (>= 6 Months) P.F. [...] Virus B QL PCR negative Covid-19 12/02/2020 [facility] Sars-CoV-2, Susu Detected Abnormal Not Detected 1 Order Covid 19 2 Day YES Urinalysis 09/29/2020 [facility] Urinalysis (SEE NOTE) 2, 3 Source R Color lucio Normal: Yellow Clarity hazy Normal: Clear Spec [place] 1.015 1.001 - 1.030 pH 5 5 [...] Abnormal Normal: None Seen Cuture Urine 09/29/2020 [facility] Culture Urine (SEE NOTE) 4 Laboratory test finding 09/29/2020 [facility] Lactic Acid (Lactate) 1.7 mmol/L 0.2 - 2.2 PTT 29.4 seconds 24.8 - 36.7 Pro-BNP 43 pg/mL 0 - 125 Comprehensive Metabolic Panel 09/29/2020 [facility] Comprehensive Metabo (SEE NOTE) 5 Sodium [...] >60 mL/min 6 CBC W/Automated Diff 09/29/2020 [facility] CBC W/Automated Diff (SEE NOTE) 7 [...] Lymph 23.8 % Low 25.0 - 40.0 [place] 19.0 % High 3.0 - 8.0 Eos 1.3 % 0.0 - 7.0 Baso 0.9 % 0.0 - 2.0 %Ig 0.0 % 0.0 - 0.0 %NRBC 0.0 % 0.0 - 0.0 #Neut 1.27 10^3/uL Low 2.00 - 6.90 #Lymph 0.55 10^3/uL Low 0.60 - 3.40 #[place] 0.44 10^3/uL 0.00 - 0.90 #Eos 0.03 10^3/uL 0.00 - 0.70 #Baso 0.02 10^3/uL 0.00 - 0.20 #Ig 0.00 10^3/uL 0.00 - 0.10 #NRBC 0.00 10^3/uL 0.00 - 0.00 Manual Diff SEE BELOW Segs 58 % 37 - 80 %Lymph 20 % Low 25 - 40 %[place] 20 % High 3 - 8 Charla Lym 2 % RBC Morph SEE BELOW [place] 1+ Abnormal Normal: None Seen 8 PLT Est NORMAL Normal: Normal 9 Laboratory test finding 09/29/2020 [facility] l Troponin T <0.01 NG/ML 0.00 - 0.10 10 Lipase Serum 1102 U/L High 13 - 60 Protime 09/29/2020 [facility] Protime 11.3 seconds 11.0 - 15.5 11 Inr 1.10 0.93 - 1.23 12 CBC W/Automated Diff 08/27/2020 [facility] CBC W/Automated Diff (SEE NOTE) 13 [...] 80.0 Lymph 37.2 % 25.0 - 40.0 [place] 18.1 % High 3.0 - 8.0 Eos 2.3 % 0.0 - 7.0 Baso 0.5 % 0.0 - 2.0 %Ig 0.0 % 0.0 - 0.0 %NRBC 0.0 % 0.0 - 0.0 #Neut 0.90 10^3/uL Low 2.00 - 6.90 #Lymph 0.80 10^3/uL 0.60 - 3.40 #[place] 0.39 10^3/uL 0.00 - 0.90 #Eos 0.05 10^3/uL 0.00 - 0.70 #Baso 0.01 10^3/uL 0.00 - 0.20 #Ig 0.00 10^3/uL 0.00 - 0.10 #NRBC 0.00 10^3/uL 0.00 - 0.00 Manual Diff SEE BELOW Segs 49 % 37 - 80 %Lymph 40 % 25 - 40 %[place] 10 % High 3 - 8 %Eos 1 % 0 - 7 RBC Morph SEE BELOW 14 PLT Est DECREASED Abnormal Normal: Normal 15 Laboratory test finding 08/27/2020 [facility] Ferritin Denisse 870.9 ng/mL High 5.0 - 244 Comprehensive Metabolic Panel 08/27/2020 [facility] Comprehensive Metabo (SEE NOTE) 16 Sodium [...] >60 mL/min 17 Iron Binding Capacity 08/27/2020 [facility] Iron 103 g/dL 42 - 135 Uibc 84 g/dL Low 112 - 347 Tibc 187 g/dL Low 250 - 450 Iron Sat 55 % PT/PTT 08/27/2020 [facility] Protime 13.6 seconds 11.0 - 15.5 Inr 1.03 0.93 - 1.23 PTT 29.2 seconds 24.8 - 36.7 18 Laboratory test finding 07/17/2020 [facility] Culture Wound (SEE NOTE) 19, 20 CBC W/Automated Diff 06/25/2020 [facility] CBC W/Automated Diff (SEE NOTE) 21, [...] Lymph 41.9 % High 25.0 - 40.0 [place] 23.1 % High 3.0 - 8.0 Eos 3.2 % 0.0 - 7.0 Baso 0.5 % 0.0 - 2.0 %Ig 0.0 % 0.0 - 0.0 %NRBC 0.0 % 0.0 - 0.0 #Neut 0.58 10^3/uL Low 2.00 - 6.90 #Lymph 0.78 10^3/uL 0.60 - 3.40 #[place] 0.43 10^3/uL 0.00 - 0.90 #Eos 0.06 10^3/uL 0.00 - 0.70 #Baso 0.01 10^3/uL 0.00 - 0.20 #Ig 0.00 10^3/uL 0.00 - 0.10 #NRBC 0.00 10^3/uL 0.00 - 0.00 Manual Diff SEE BELOW Segs 31 % Low 37 - 80 Band 1 % 0 - 5 %Lymph 53 % High 25 - 40 %[place] 14 % High 3 - 8 %Eos 1 % 0 - 7 RBC Morph SEE BELOW 23 PLT Est DECREASED Abnormal Normal: Normal 24 Comprehensive Metabolic Panel 06/25/2020 [facility] Comprehensive Metabo (SEE NOTE) 25 [...] >60 mL/min 26 Laboratory test finding 06/25/2020 [facility] l Hgba1c 8.2 % High 4.4 - 6.1 27 TSH Highly Sensitive 2.06 uIU/mL 0.47 - 5.01 Cve Panel 06/25/2020 [facility] Cve Panel (SEE NOTE) 28 Cholesterol 131 mg/dL 131 - 200 Triglycerides 138 mg/dL 35 - 160 HDL 49 mg/dL 29 - 86 LDL 61 mg/dL Low 65 - 175 Risk Factor 2.7 Low 3.4 - 4.9 LDL/HDL 1.24 1.00 - 3.55 29 Laboratory test finding 06/25/2020 [facility] l Lipase Serum 63 U/L High 13 - 60 Amylase 92 U/L 30 - 110 Vitamin D (25-Hydroxy) 19 NG/ML 30 1 This nucleic acid amplificat ion test was developed and its performance characteristics determined by [employer]. Nucleic acid amplification tests include RT-PCR and [...] Clean Catch 3 URINALYSIS 4 _CULTURE URINE_ ^$[id number] ^^130479 $$442848 ^^422893 $$988219 $$933832 $$908017 $$220659 $$493899 $$655153 $$822766 $$246794 $$226049 $$382878 $$036347 $$551876 $$611338 $$974647 $$999645 $$904404 $$607273 $$218711 $$849613 $$258090 $$235286 $$729365 $$009244 ^^441377 $$731417 $$678884 $$965064 -- Continued on next page -- Patient: DENISHA Gutierrez Order: [id number] Page 2 Culture: CULTURE URINE Status: Final $$[id number] $$[id number] REPORTED DATE/TIME: 10/03/2020 12:06 Culture: CULTURE URINE [...] coli Flag: A Patient: DENISHA Gutierrez Order: [id number] Page 3 Culture: CULTURE URINE Status: Final [...] S S . . . . . .18824-0 Gentamicin S S . . . . . .267-5 Imipenem S S . . . . . .279-0 Levofloxacin S S . . . . . .94109-8 Meropenem S S . . . . . .6652-2 Nitrofurantoin S S . . . . . .363-2 Piperacillin/Tazobactam S S . . . . . .412-7 Tetracycline S S . . . . . .496-0 Tobramycin S S . . . . . .508-2 Trimethoprim/Sulfa S S . . . . . .516-5 P1 Test performed by: [facility] #: [id number] [address] [place] [address] Avenue [id number] [facility] [id number] Transmission Specialist : Jasiel Pedraza MD NPI #: Bottom Cementer : 10/03/20.1241.XMT.SENT REF 5 COMPREHENSIVE METABOLIC PANE [...] for Troponin T. 11 [place] [address] CLIA# [id number] SEE SCANNED REPORT 12 \\BLDo\\INR INTERPRETATION\\BLD x\\ Therapeutic range for Coumadin and related oral anticoagulants. -International Normalized Ratio (INR): 2 .0 - 3.0 for Venous Thrombosis, Pulmonary Embolus, Tissue heart valves, Acute VT, Atrial Fibrillation, Valvular heart disease and recurrent [...] Thrombosis, Pulmonary Embolus, Tissue heart valves, Acute VT Atrial Fibrillation, Valvular heart disease and recurrent Systemic Embolism. -International Normalized Ratio (INR): 2 .5 - 3.5 for Mechanical Prosthetic valve. 19 {SPECIMEN SOURCE : R CHEST ABCESS 20 _CULTURE WOUND_ ^^968426 ^$439280 $$587913 ^^529972 $$062858 $$637408 $$785702 $$850233 $$737443 REPORTED DATE/TIME: 07/21/2020 12:05 Culture: CULTURE WOUND [...] next page -- Patient: DENISHA Gutierrez Order: [id number] Page 2 Culture: CULTURE WOUND Status: Final Beta hemolytic Streptococcus, group A Previous result entered on 07/19/2020 05:40 ET Beta hemolytic Streptococcus, group A Beta hemolytic Streptococcus, group A Flag: A P1 Test performed by: [facility] #: [id number] [address] [place] [id number] [facility] [id number] Transmission Specialist : Jasiel Pedraza MD NPI #: [place] Cementer : 07/19/20.0829.XMT.SENT REF 07/20/20.2301.XMT.SENT REF 07/21/20.2244.XMT.SENT REF 07/21/20.2244.DW .to [facility] via fax 21 FASTING 8 HOUR~.~.~<DG1.3.1>R10.84</DG1.3.1><DG1.3.1>R10.84</DG1.3.1><DG1.3.1>R10.84</DG1. 3.1><DG [...] ng/ml Procedures Date Code Description Status 07/17/2020 73032 I & D Abscess Simple Completed Medical Devices Description No Information Available Encounters Description No Information Available Assessments Date Code Description Provider 12/05/2020 U07.1 Covid-19 OPAL Forman 12/05/2020 C25.9 Malignant neoplasm of pancreas, unspecified Lisa Bell PA-C 12/05/2020 E11.9 Type 2 diabetes mellitus without complications Lisa Bell PA-C 12/02/2020 R53.83 Other fatigue Star AAtul Juananoopfelix , DIRECTORY OPERATOR 11/11/2020 C25.9 Malignant neoplasm of pancreas, unspecified Lisa Bell PA-C 11/11/2020 E83.119 Hemochromatosis, unspecified Kia se DIANE Bell 11/11/2020 C85.90 Non-Hodgkin lymphoma, unspecifie d, unspecified site Lisa Bell PA-C 11/11/2020 E11.9 Type 2 diabetes mellitus without complications Lisa Bell PA-C 10/08/2020 K85.90 Acute pancreatitis without necro sis or infection, unspecified Lisa Bell PA-C 10/08/2020 E11.9 Type 2 diabetes mellitus without complications Lisa Bell PA-C 08/01/2020 L02.411 Cutaneous abscess of right axill a Gene Carvajal MD 07/25/2020 L02.411 Cutaneous abscess of right axill a Lisa Bell PA-C 07/25/2020 R10.84 Generalized abdominal pain Lisa Bell PA-C 07/25/2020 Z23 Encounter for immunization Lisa Bell PA-C 07/25/2020 E83.119 Hemochromatosis, unspecified Kia se Kartik PA-C 07/17/2020 L02.213 Cutaneous abscess of chest wall Gene Carvajal MD 07/17/2020 L02.411 Cutaneous abscess of right axill a Shelli Mcmullen MD 07/17/2020 E11.9 Type 2 diabetes mellitus without complications Shelli Mcmullen MD 06/25/2020 R10.84 Generalized abdominal pain Lisa Bell PA-C 06/25/2020 E11.9 Type 2 diabetes mellitus without complications Lisa Bell PA-C 06/25/2020 I10 Essential (primary) hypertension Lisa Bell PA-C 06/25/2020 C85.90 Non-Hodgkin lymphoma, unspecifie d, unspecified site Lisa Bell PA-C Plan of Treatment 12/05/2020 - Lisa Bell PA-C* U07.1 Covid-19* Comments:* He was told [...] to Reason for Referral Status Appt Date [facility] 50-year-old male with subcut aneous abscess on the right infra-axillary area with 1 small opening that was draining purulent material. There is an area of 6 x 3 cm induration which was erythematous and tender. Please evaluate and treat. Thank you. Closed [address] [place] [id number] [phone] Raad Rico MD 50 year old male with his tory of GRIGGS and recently discovered liver cirrhosis after CT was ordered due to abdominal pain. Please evaluate and treat. Thank you. Patient Notified 08/29/2020 [address] [place] [address] [phone] [facility] 50 year old male with hi story of Non-Hodgkin's Lymphoma. Patient states that he has been cancer free for 4 years. He states he was previously seen by [facility] but has not been seen in quite a while and would like to reestablish. He also has leukopenia and low platelet count. He was recently discovered to have liver cirrhosis which is currently being worked up. Please evaluate and treat. Thank you. Closed 07/24/[address] [place] [id number] [phone]
--- OUTSIDE RECORDS SUMMARY | 2021-01-03 16:12 | CCD | Summary of Care ---
Author Author [facility] Address Unknown Phone Unavailable Care Team Providers Care Slag Skimmer Name Role Phone Asha Pozo PCP Reason for Visit * Reason Comments New Patient Genetic Evaluation Encounter Details Care Team Description Date Type Department Constance Gregory MD PhD [address], [place] [id number] Pancreatic adenocarcinoma (Primary Dx); Encounter for nonprocreative genetic counseling; Genetic testing of female 11/26/2020 Telemedicine Multidisciplinary Programs [address] [facility] [address] [place] [id number] Allergies No Known Allergiesdocumented as of this encounter (statuses as of 11/26/2020) Medications End Date Status Medication Sig Dispensed Refills Start Date Active atenolol (TENORMIN) 50 MG Take 50 mg by 0 tablet mouth daily. Active lisinopril Take 10 mg by 0 (PRINIVIL,ZESTRIL) 10 MG mouth daily. tablet Active glipiZIDE (GLUCOTROL) 2.5 Take 10 mg by 0 MG 24 hr tablet mouth Twice Daily Active hydrocodone-acetaminophen Take 1 tablet 0 (VICODIN) 5-500 MG per by mouth as tablet needed. Active atorvastatin (LIPITOR) 10 Take 10 mg by 0 MG tablet mouth daily. Active Morphine Sulfate 0 (Concentrate) 100 MG/5ML 1 Oral Solution Active Creon 81825 UNIT Oral TAKE ONE 0 11/06/20 2 Capsule Delayed Release CAPSULE BY 0 Particles MOUTH THREE TIMES A DAY WITH MEALS documented as of this encounter (statuses as of 11/26/2020) Active Problems Problem Noted Date Pancreatic adenocarcinoma 11/18/2020 Cancer Staging: Clinical: Stage IIB (cT 3, cN1, cM0) - Signed by Sandra Hubbard MD on 11/18/2020 Non Hodgkin's lymphoma, stage IA Hypertension Diabetes mellitus Cirrhosis due to hemochromatosis documented as of this encounter (statuses as of 11/26/2020) Social History Date Tobacco Use Types Packs/Day Years Used Quit: 11/17/2010 Former Smoker 1 10 Smokeless Tobacco: Chew Current User Drinks/Week oz/Week Comments Alcohol Use Not Currently Alcohol Habits Answer Date Recorded How often do you have a drink containing alcohol? Never 11/18/2020 How many drinks containing alcohol do you have on Not aske d 11/18/2020 a typical day when you are drinking? How often do you have six or more drinks on one Never 11/18/2020 occasion? Sex Assigned at Date Recorded Not on file documented as of this encounter Last Filed Vital Signs Not on filedocumented in this encounter Progress Notes * Constance Gregory MD PhD - 11/26/2020 1:00 PM EST [facility]ICS [facility] INITIAL GENETICS CONSULTATION: CC: REASON FOR CONSULTATION: I met with Sheri Acuña for genetic counseling d ue to newly diagnosed pancreatic cancer. He was referred to Genetics by Dr. Isamar Hubbard, and sees Dr. Petra Espinosa at [facility] in [place]. This is a telephonic visit which was performed without the use of video technolo gy due to patient inability to connect with video. The patient was informed of t he risks including security breach, technological failure, inability to perform a physical exam which could delay or prevent an accurate diagnosis, and potentia l complications from treatment decisions rendered over a telephonic platform. Th e patient understands and consented to the use of a telephonic visit/telephone c all. Time spent on the telephonic visit today: 30 minutes HISTORY: Sheri Acuña is a 50 y.o. -year old male with recently diagnosed panc reatic adenocarcinoma of the head of the pancreas, proven by biopsy after workup for obstructive jaundice, who was initially diagnosed with non-Hodgkin's lympho ma in 2010 at age 40. He also has history of liver cirrhosis and leukopenia/thr ombocytopenia, but no other known bone marrow malignancy. His family history is significant for possible pancreatic cancer in his father, stomach versus kidney cancer in his paternal uncle, and colorectal cancer in his mother. He repots that neither he nor any other family member has previously had genetic testing d one, and he is referred for this purpose today. He reported that he has never had a bone marrow transplant, nor any recent blood transfusions, but had radiati on to the neck for the treatment of his previous NHL. has a past medical history of Asthma, Cirrhosis due to hemochromatosis, Diabete s mellitus, Hypercholesterolemia, Hypertension, and Non Hodgkin's lymphoma, stag e IA. No Known Allergies Current Outpatient Medications: atenolol (TENORMIN) 50 MG tablet, Take 50 mg by mouth daily. , Disp: , Rfl: atorvastatin (LIPITOR) 10 MG tablet, Take 10 mg by mouth daily. , Disp: , Rfl: Creon 04811 UNIT Oral Capsule Delayed Release Particles, TAKE ONE CAPSUL E BY MOUTH THREE TIMES A DAY WITH MEALS, Disp: , Rfl: glipiZIDE (GLUCOTROL) 2.5 MG 24 hr tablet, Take 10 mg by mouth Twice Dorota ly , Disp: , Rfl: hydrocodone-acetaminophen (VICODIN) 5-500 MG per tablet, Take 1 tablet b y mouth as needed. , Disp: , Rfl: lisinopril (PRINIVIL,ZESTRIL) 10 MG tablet, Take 10 mg by mouth daily. , Disp: , Rfl: Morphine Sulfate (Concentrate) 100 MG/5ML Oral Solution, , Disp: , Rfl: DIAGNOSES: Cirrhosis of the liver in clinic notes, reviewed. Possible hemochromatosis? No history of pancreatis but had gall bladder removed. Radiation Treatments No radiation treatments to show. ([facility] Cancer Staging Pancreatic adenocarcinoma Staging form: Exocrine Pancreas, AJCC 8th Edition - Clinical: Stage IIB (cT3, cN1, cM0) - Signed by Sandra Hubbard MD on 11/18/2020 PAST SURGICAL HISTORY: Past Surgical History: Procedure Laterality Date CHOLECYSTECTOMY COLONOSCOPY NECK MASS EXCISION PANCREAS SURGERY stents placed TONSILLECTOMY UPPER GASTROINTESTINAL ENDOSCOPY Pathology reviewed in Dr. Hubbard's notes and in Media section of chart. PREVIOUS CANCER SCREENINGS: UPTD with colonoscopy? Yes; Last on 2017, detected polyps; started due to family history [UPTD with PSA screening? Unknown; ENVIRONMENTAL EXPOSURES: reports that he quit smoking about 10 years ago. He has a 10.00 pack-year smoki ng history. His smokeless tobacco use includes chew. He reports previous alcohol use. He reports that he does not use drugs. EtOH; previous occupation; has had possible chemical exposure in the workplace. 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 He has ongoing support with his immediate family, and expressed leila t this is helpful. FAMILY HISTORY: No family history on file. A full 4-generation family pedigree was drawn today and submitted to the chart f or detailed family history. Of note, Sheri reported the following history: Sheri has 3 children: 2 daughters (ages 22, 21) and 1 son (age 14), all of whom a re alive and well, with no history of cancers, tumors, or developmental disorder s or delays. Siblings: Sheri had 2 Brothers (both due to GSW and accident, respectively, in yo kimberly teens to 20's) and 1 sister (alive in her 60's, with COPD, no cancers). Maternal history: Mother, alive at age 77. Recently had colorectal cancer, treated with surgery, no other previous cancers. Not tested. Also has "low WBC", no hematologic malig claudia. Has unknown number of siblings, no cancers. Maternal Grandmother: , in his 70's, no cancers. Maternal Grandfather: , in his 70's-80's, no cancers. Paternal History: Father, at age 76, due to multiple CVA's requiring prolonged hospitalizatio n. Had prior hx pancreatic "spot" for which he received chemotherapy, versus sally er cancer. Not tested. Had 2 total siblings: 1 brother in his 70's, due t o "stomach cancer" versus "kidney cancer which spread to the liver" 1 sister is living, has low WBC. Paternal Grandmother: , in his 80's, no cancer history. Paternal Grandfather: , in his 80's, no cancer history. ETHNICITY: Mothers and her fathers family are both of desc ent. There is no known Ashkenazi Rastafari ancestry on either side of the family. There is no known history of consanguinity between her parents. It is requested that if possible individual obtain medical records for relatives who have had cancer for accurate genetic counseling. If any new information ab out the family history becomes available, Sheri understands that the history may be re-evaluated. PHYSICAL EXAM: There were no vitals taken for this visit. No physical exam was done as this was a telephone-only consultation. DISCUSSION OUTLINE: The following were discussed with Sheri Acuña: ? Medical History ? Family history of cancer ? Distinction between sporadic, familial and hereditary cancers ? General features of an inherited cancer syndrome ? Role of predisposition genes in the development of hereditary cancer ? Autosomal dominant inheritance an inheritance pattern ? Risks, benefits, and limitations of genetic testing ? Meaning of positive, negative, and ambiguous results (i.e., variant of uncerta in significance) ? Options for cancer surveillance and prevention ? Implications of testing for other family members DISCUSSION: We discussed that in the general population, most cases of cancer appear to occu r sporadically, and only 10% may actually be hereditary. In the latter, in some families, cancer risk may be familial, increased due to more common risk factors and/or environmental factors, with inherent genetic risk still yet to be identi fied. His history meets the National Comprehensive Cancer Network guidelines (N CCN, v. 2.2020) for testing for hereditary pancreatic cancer by virtue of his pe rsonal diagnosis alone. We discussed that the majority (but not all) of hereditary cancer risk gene muta tions are inherited in an autosomal dominant pattern. This means that for an in dividual, male or female, carrying a gene mutation has a 50% chance of passing t hat mutation on to a child, male or female. If a mutation is found in a family, testing for a specific mutation would be available to relatives. However, gene tic counseling would be recommended for all relatives (especially first-degree) for evaluation of appropriate options for testing. We first discussed that at this time, the most commonly known high-risk genes as sociated with an inherited risk of pancreatic cancer are actually the breast can cer genes, I.e., BRCA1 and BRCA2 genes. It is known, for example, that a woman who carries a BRCA1 or BRCA2 gene mutation is at increased risk, compared to the general population, of developing breast cancer (about 40- up to 85% lifetime r isk) and for ovarian cancer (10-up to 50%), including cancer of the fallopian tu be and primary peritoneal cancer. In addition, a woman who has had breast cance r and carries a BRCA mutation has a significant increased risk of additional taye kelli breast cancer. Certain other cancers, including male breast cancer, prosta te cancer and pancreatic cancer, have been associated with carrying a BRCA1 and/ or BRCA2 gene mutation in some families, as well as slight increase for melanoma in BRCA2 carriers (Johnnie Ryao, Lancet 1994; Jass A, JCO 2004; Tam Austin, JNCI 201 3). Information about cancer risks associated with a BRCA gene mutation may be modified over time (Miracle et al, ELYSSA 2017). We also discussed that current version of the NCCN Guidelines for treatment for Pancreatic Adenocarci noma recommend genetic [I.e., germline] testing for BRCA1/2 and PALB2 (Partner a nd Localizer of BRCA2) mutations as these could be utilized to optimize chemothe rapy decisions, specifically to favor the use of [place]-based chemotherapy for primary treatment, and the use of PARP (tdhl-YCR-rdrcyg-polymerase) inhibitors as maintenance therapy to enhance overall survival rate. (Cassius S, Maxim A, Magy A, et al. J Clin Oncol 2015:; 33:3124-58670. Vini K, Escalante J, Suenaga M, et al. J Clin Oncol 2017; 35:2946-0282.) Therefore, we also discussed the availability of testing for several other recen tly identified breast cancer risk genes with use of a multi-gene panel study. I discussed examples of several of the genes on a panel, including PALB2, CHEK2 ( with Mosotho service or work dispatcher sites), CAS, STK11 (all of which can elevate risk of pancrea tic cancer as well), TP53, MSH and Morin genes, for which there are new guidelin es according to the NCCN (v.2.2017). The Li-Fraumeni (LFS) is a rare inherited cancer risk syndrome that has been ass ociated with various cancers in children and adults. The predominant cancers as sociated with LFS include (but are not limited to) premenopausal breast cancer, bone, and soft tissue sarcomas, acute leukemia, brain tumor, adrenocortical carc inoma, choroid plexus carcinoma, colon cancer, and other early age onset and chi ldhood cancers. The gene associated with LFS is known as TP53. Individuals who carry an inherited TP53 gene mutation have a high lifetime risk of developing c ancer and there is an increased risk for multiple primary cancers in affected in dividuals. Most individuals with LFS appear to have inherited the gene mutation from a parent. However, some individuals with LFS carry a new gene mutation, w hich was not inherited. Testing for the TP53 gene is now also available via [employer] panels. Morin syndrome (LS) is an inherited cancer syndrome characterized by an increase d risk for certain cancers, most predominantly colorectal and endometrial cancer s. Other cancers which have been associated with Morin syndrome include cancers of the stomach, ovary, urinary tract (including an elevated risk of prostate ca ncer), small intestine, biliary/pancreatic, brain (mostly glioblastoma) and seba ceous skin tumors. A person with Morin syndrome is at increased risk for develo ping cancer at an earlier age, and of developing more than one primary cancer. Several genes, known as the mismatch repair (MMR) genes, have been identified in association with Morin syndrome and testing for these genes (MLH1, MSH2, MSH6, PMS2, EPCAM) is available. A full panel for genes which could affect pancreatic cancer risk would also incl ude the cell-cycle genes CDKN2A and CDK4 which encode the p16 gene, which can ca use the Familial malignant Melanoma and Pancreatic Cancer syndrome. Testing for chronic pancreatitis may be considered in any individual with a pers onal and/or family history of: ? unexplained episodes of acute pancreatitis in childhood ? recurrent acute attacks of pancreatitis of unknown cause ? chronic pancreatitis of unknown cause, particularly with onset before age 25 y ears ? signs and symptoms of pancreatitis-associated syndromes, such as cystic fibros is (CF) or atypical CF Genes related to hereditary chronic pancreatitis include CASR (calcium receptor) , CFTR (cystic fibrosis receptor gene, for which carrier status may also slightl y increase the risk of pancreatic cancer), CTRC (calcium receptors), SPINK1, MS SS1 (trypsinogen gene), and newly added CPA1. These test for chronic pancreatit is cystic fibrosis CASR-associated conditions, including familial isolated hyper parathyroidism (FIHP), hypocalcemia (ADH) and benign familial hypocalciuric hype rcalcemia (BFHH). Therefore, due to Gails significant personal and family history of cancer and various hereditary gene possibilities, the option of multi-gene panel analys is was discussed, panel chosen, and offered. The Detect Program offers a sponsored program at [facility] ([facility]. [place]) which will test the DNA for sequencing for the most widely kno wn hereditary pancreatic cancer genes, as well as those with preliminary evidenc e for their association with pancreatic cancer, and those which can cause heredi tary forms of chronic/recurrent pancreatitis. This panel is then expanded to th e remainder of their 84-gene MultiCancer panel, and is all done free of charge t o the patient. A negative panel result does not rule out genetic risk since sti ll not all cancer genes are included. We discussed that the potential benefits of genetic testing may include clarific ation of an individuals future cancer risks and risks to family members. I had a long discussion about possible test results including positive for a mut ation, negative for a mutation and/or finding(s) of variant(s) of uncertain sign ificance. If a positive result, I discussed that standard recommendations for further management would include consideration of risk-reducing surgery, increas ed surveillance, and/or chemoprevention (Dago E, ELYSSA 2004; Tracy LC, NEJ 2016; Forest TR, JNCI 2009; MC, ELYSSA 2001; Garry PG, JCO 2013). Sheri lutz melissa that he is prepared to have this potential discussion at the time of receivi ng the results. Limitations of testing include the possible identification of one or more varian ts of unknown significance (VUS) and the likelihood of identifying a VUS signifi cantly is increased with use of a multiple gene panel study (Jeanette DM, Anita Onco l 2015; Bayron MARIE, JCO 2014). These may be further studied in proprietary or re search registries, and may be further reclassified in the future in terms of del eterious or non-deleterious effect. In the absence of identifying a gene mutati on, cancer risk may be based on personal and family history. I also discussed the availability of DNA banking, which is a separate process, t o store a persons DNA sample for ongoing and future research, and enrollme nt into a genetic registry. Other possible drawbacks of genetic testing discussed may include feelings of an xiety, depression, guilt, difficulties dealing with the uncertainties of results , and difficulty dealing with some relationships. Genetic testing in a family h as the potential to reveal undisclosed biologic parentage or other non-biologica lly related individuals. Sheri has assured us of good social support. Lastly, we discussed that insurance may or may not cover testing. However, the [facility] laboratory provides pre-verification of coverage prior to testing , and offers payment assistance programs for patients. State and federal laws ( including the Genetic Information Nondiscrimination Act [[place]] of 2008) mandate against the potential for discrimination against individuals with genetic predis position by health insurers and employers. However, [place] currently does not prov fouzia protection for life insurance or long-term disability insurance discriminati on for gene mutation carriers. PLAN: Following our discussion, Sheri wished to pursue the Detect [facility]'s multiple cancer gene panel study based on Pancho personal history a nd family history. He elected to have his blood drawn today on the day of this visit. Follow-up genetic counseling will be provided to offer and discuss resu lts, which are expected within 2-3 weeks. He will have a tentative 4-week karolina hanson-up appointment. It is recommended that if possible, a support person is prese nt at the follow-up visit. I spent 30 minutes by telephone with Sheri, all in discussing the genetic testing process and in counseling. Additional time (>30 minutes) was spent in reviewing the chart for clinic notes, patholgoy, and imagine, as well as oredering testing online, copleting an appointment summary, and uploading these documents to the chart. It was certainly a great pleasure to speak with Sheri. We will continue to kraolina w him on a regular basis. I have emailed him a copy of his testing pamphlets t o share with his family; we will also mail him a copy of her consent form for caleb de los santos to sign and return to us for his chart records. I encouraged him to contact me any time with any questions, if there is any new information about the family h istory, or for further assistance at [phone]. Sincerely, Constance Gregory MD, PhD Cancer Genetics Risk Assessment Program [facility] References cited: ? Johnnie D, Nasim DF, DT, et al. Risks of cancer in BRCA1-mutation alex rs. Breast Cancer Linkage Consortium. Lancet 1994; 343:692-695. ? Shae Galloway BY, Negin SA. Cancer risks for male carriers of germline muta tions in BRCA1 or BRCA2: a review of the literature. J Clin Oncol 2004; 22: 735 -742. ? Tam N, Sumit S, Aden Rayo, et al. Cancer risks for BRCA1 and BRCA2 mutatio n carriers: results from prospective analysis of EMBRACE. J Natl Cancer Inst 20 13; 105: 812-822. ? Vu KB, Jennifer JL, Chadd NELSON, et al. Risks of breast, ovarian, and co ntralateral breast cancers for BRCA1 and BRCA2 mutation carriers. ELYSSA 2017; 317 (23):2402. ? Patricio AC, Quang R, Ventura L, et al. Predicting the likelihood of carrying a BRCA1 or BRCA2 mutation: validation of BOADICEA, BRCAPRO, BRIAN, Myriad and the Marcio scoring system using data from [facility]. J Med Jessica 2008 ; 45:425-431. ? Dago E, Percy DB, Maxwell KA, et al. Surveillance of BRCA1 and BRCA2 mutation carriers with magnetic resonance imaging, ultrasound, mammography, and clinical breast examination. ELYSSA 2004; 292:1601-2498. ? Tracy LC, Nancy NM. The role of risk-reducing surgery in hereditary breas t and ovarian cancer. N Engl J Med 2016; 374:454-468. ? Forest TR, Zulay ND, Meaghan SM. [place]-analysis of risk reduction estimates a ssociated with risk-reducing salpingo-oophorectomy in BRCA1 or BRCA2 mutation ca rriers. J Natl Cancer Inst 92134; 101:80-87. ? King AMADOR, Vanita S, Hayley K, et al. Tamoxifen and breast cancer incidence among women with inherited mutations in BRCA1 and BRCA2: National Surgical Adjuvant B reast and Bowel Project (NSABP-P1) Breast Cancer Prevention Trial. ELYSSA 2001; 2 86:9387-6115. ? Garry PG, Alvina LJ, Robbie HINOJOSA, et al. Oral contraceptives and risk o f ovarian cancer and breast cancer among high-risk women: a systematic review an d meta-analysis. J Clin Oncol 2013; 31:7324-5591. ? Jeanette MARTINEZ, Robson G, Marlen AN, et al. BRCA1 and BRCA2 genetic testing-pi tfalls and recommendations for managing variants of uncertain clinical significa nce. Anita Oncol 2015; 26:7736-6973. ? Bayron AW, Deborah EE, [place] MA, et al. Clinical evaluation of a multiple-gene s equencing panel for hereditary cancer risk assessment. J Clin Oncol 2014; 32:20 -2008. documented in this encounter Plan of Treatment Order Schedule Name Type Priority Associated Diag noses 1 Occurrences starting 11/26/2020 until 05/26/2021 Miscellaneous Lab Test Lab Routine Encount er For (Send Out) Nonprocreative Genetic Counseling Genetic testing of female Pancreatic adenocarcinoma Health Maintenance Due Date Last Done Comments MMR Vaccines (1 of 1 - 1972 Standard series) Varicella Vaccines (1 of 1972 2 - 2-dose childhood series) Pneumococcal Vaccine: 1977 Pediatrics (0 to 5 Years) and At-Risk Patients (6 to 64 Years) (1 of 3 - PCV13) DTaP,Tdap,and Td Vaccines 1978 (1 - Tdap) HIV Screening 1984 Hepatitis B Vaccines (1 1990 of 3 - Risk 3-dose series) Influenza Vaccine 08/08/2020 Pneumococcal Vaccine: 65+ 2036 Years (1 of 1 - PPSV23) HIB Vaccines Aged Out No longer eligible based on patient's age to complete this topic Hepatitis A Vaccines Aged Out No longer eligibl e based on patient's age to complete this topic IPV Vaccines Aged Out No longer eligible based on patient's age to complete this topic documented as of this encounter Results Not on filedocumented in this encounter Visit Diagnoses Diagnosis Pancreatic adenocarcinoma - Primary Malignant neoplasm of pancreas, part un specified Encounter for nonprocreative genetic co unseling Genetic testing of female Other genetic testing of female documented in this encounter
--- OUTSIDE RECORDS SUMMARY | 2021-01-03 16:12 | CCD | Summary of Care ---
Author Author [facility] Organization [facility] Address Unknown Phone Unavailable Care Team Providers Care Finishing Pan Operator Name Role Phone Asha Pozo PCP Reason for Referral * Consultation (Routine) Referred By Contact Referred To Contact Status Reason Specialty Diagnoses / Procedures Sandra Hubbard MD [address] [phone] Email: [email or web address] Multidisciplinary Programs Provider-Based [facility] [address] [address] Authorized Specialty Services Surgery Diagnoses Required Pancreatic adenocarcinoma * Diagnostic Radiology (STAT) Referred By Contact Referred To Contact Status Reason Specialty Diagnoses / Procedures Sandra Hubbard MD [address] [phone] Email: [email or web address] Authorized Medical Oncology Diagnoses Pancreatic adenocarcinoma P rocedures CT Abdomen Pelvis with and without Contrast Reason for Visit * Reason Comments New Patient Encounter Details Care Team Description Date Type Department Sandra Hubbard MD [address] [address] Pancreatic adenocarcinoma (Primary Dx); Other cirrhosis of liver 11/18/2020 Telemedicine Multidisciplinary Programs [address] [phone] Allergies No Known Allergiesdocumented as of this encounter (statuses as of 11/21/2020) Medications End Date Status Medication Sig Dispensed [...] 100 MG/5ML 1 Oral Solution Active Creon 40043 UNIT Oral TAKE ONE 0 11/06/20 2 Capsule Delayed Release CAPSULE BY 0 Particles MOUTH THREE TIMES A DAY WITH MEALS documented as of this encounter (statuses as of 11/21/2020) Active Problems Problem Noted Date Pancreatic adenocarcinoma 11/18/2020 Cancer Staging: Clinical: Stage IIB (cT 3, cN1, cM0) - Signed by Sandra Hubbard MD on 11/18/2020 Non Hodgkin's lymphoma, stage IA Hypertension Diabetes mellitus Cirrhosis due to hemochromatosis documented as of this encounter (statuses as of 11/21/2020) Social History Date Tobacco Use Types Packs/Day [...] of this encounter Last Filed Vital Signs Reading Time Taken Comments Vital Sign - - Blood Pressure - - Pulse - - Temperature - - Respiratory Rate - - Oxygen Saturation - - Inhaled Oxygen Concentration 133.4 kg (294 lb) 11/18/2020 12:18 PM EST Weight 177.8 cm (5' 10") 11/18/2020 12:18 PM EST Height 42.18 11/18/2020 12:18 PM EST Body Mass Index documented in this encounter Progress Notes * Sandra Hubbard MD - 11/18/2020 1:[address] Espinosa, I saw your patient Sheri Acuña in the hepatobiliary and pancreas surgery clinic for a new consultation regarding pancreatic adenocarcinoma. 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 I was able to review liver biopsy from 06/12/2010 which noted cirrhosis of the liver. This is most likely secondary to hemochromatosis. He also has chronic leukopenia and t hrombocytopenia. As you know he is 50-year-old man with obstructive jaundice in September 2020. A t that time he underwent a CT scan which noted splenomegaly, cirrhosis as well a s a mass in the head of the pancreas. He had a ERCP at [facility] on 10/02/2020 which showed a biliary stricture and a pancreatic duct stricture. Pathology at that time came back as atypical glandular proliferation. He recently underwent an EUS on 10/28/[address] Curiel. At that time 4.5 cm m ass was noted in the head of the pancreas. He also noted numerous small hypoech oic lesions in the liver suspicious for metastatic disease. The FNA from pancre atic head mass came back as positive for malignancy and consistent with adenocar cinoma. On my review of images from September 2020 I agree with liver cirrhosis, splenome mikal and splenic varices. I do not see any definite evid ence of metastatic dis ease. The mass abuts the SMV. I discussed with the patient that I would like updated CT abdomen pelvis pancrea s protocol to rule out metastatic disease as well as to evaluate the relationshi p of blood vessels as Dr. Curiel was not able to evaluate that. I also discussed with him the treatment options for pancreatic adenocarcinoma, h owever we discussed that Whipple operation is usually not feasible in patients w ith cirrhosis and evidence of portal hypertension given high risk of mortality. Patient at this time wants to do everything and wants to be aggressive with kong tment options. I discussed with him that he should get going on chemotherapy as soon as possibl e. We will review his images to stage the disease in our multidisciplinary conf erence. Additional testing may be needed if any suspicious lesions are seen in the Liver. He will also be candidate for foundation 1 genetic testing and genetic testing, given his young age and multiple malignancies. I will also place a referral for genetic testing. He is already scheduled for port placement and PET/CT with you. Thank you for taking the time to discuss his case with me. I will discuss his c ase in our multidisciplinary tumor board. If he is deemed not to be candidate f or surgery for pancreas given portal hypertension and cirrhosis, he will still b enefit from addition of radiation after 3 to 4 months of chemotherapy. Thank you very much for asking us to participate in the care of this very pleasa nt patient. Please do not hesitate to call if there are any further questions or concerns. Sincerely, Sandra Hubbard MD FACS Chief, Section of Hepatobiliary and Pancreatic Surgery Surgical Oncology and Endocrine Surgery [facility] Surgical Oncology, Hepatobiliary and Pancreatic Surgery and Melanoma Office: , Fax [phone] Endocrine Surgery Office: [facility] , * Sandra Hubbard MD - 11/18/2020 1:00 PM EST Reason for consult: Pancreatic adenocarcinoma in the setting of liver cirrhosis Referring physician: Dr. 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 , Disp: , Rfl: atorvastatin (LIPITOR) 10 MG tablet, Take 10 mg by mouth daily. , Disp: , Rfl: Creon 93376 UNIT Oral Capsule Delayed Release Particles, TAKE ONE CAPSUL E BY MOUTH THREE TIMES A DAY WITH MEALS, Disp: , Rfl: glipiZIDE (GLUCOTROL) 2.5 MG 24 hr tablet, Take 10 mg by mouth Twice Dorota ly , Disp: , Rfl: lisinopril (PRINIVIL,ZESTRIL) 10 MG tablet, Take 10 mg by mouth daily. , Disp: , Rfl: Morphine Sulfate (Concentrate) 100 MG/5ML Oral Solution, , Disp: , Rfl: hydrocodone-acetaminophen (VICODIN) 5-500 MG per tablet, Take 1 tablet b y mouth as needed. , Disp: , Rfl: Social History Tobacco Use Smoking status: Former Smoker Packs/day: 1.00 Years: 10.00 Pack years: 10.00 Quit date: 11/17/2010 Years since quittin.0 Smokeless tobacco: Current User Types: Chew Substance Use Topics Alcohol use: Not Currently Frequency: Never Binge frequency: Never No family history on file. PHYSICAL EXAMINATION: CONSTITUTIONAL VITAL SIGNS: Height 1.778 m, weight 133.4 kg (294 lb). Body mass index is 42.18 kg/m. GENERAL APPEARANCE: The patient is well developed, well nourished and in no acut e distress. ECO PSYCHOLOGICAL: Alert and oriented to person, place and time. Affect and mood ar e appropriate and congruent. EYES: No icterus RESPIRATORY: Non labored respirations. CARDIOVASCULAR: No visible juglar distension, no cyanosis Abdomen/GI: Dilated abdominal wall spider angiomas MUSCULOSKELETAL: No visible joint swelling or deformity DATA REVIEW / MEDICAL DECISION MAKING: Outside records reviewed and summarized in HPI I have personally reviewed the following diagnostic tests: Laboratory studies: Imaging studies: Images and report reviewed Cancer Staging Pancreatic adenocarcinoma Staging form: Exocrine Pancreas, AJCC 8th Edition - Clinical: Stage IIB (cT3, cN1, cM0) - Signed by Sandra Hubbard MD on 11/18/2020 Total time spent 65 minutes 1. Pancreatic adenocarcinoma Basic Metabolic Panel CBC and Differential Hepatic Function Panel Cancer antigen 19-9 CT Abdomen Pelvis with and without Contrast CT Abdomen Pelvis with and without Contrast Referral to Genetic Counseling Program 2. Other cirrhosis of liver Hepatitis C Virus FibroSURE documented in this encounter Nursing Notes * Leanna Salomon MA - 11/18/2020 1:00 PM EST New Patient. He has pain. documented in this encounter Plan of Treatment Care Team Description Date Type Specialty Constance Gregory MD PhD [address] [place] [address] [phone] 11/26/2020 Telemedicine Surgery Order Schedule Name Type Priority Associated Diag noses 1 Occurrences starting 11/18/2020 until 05/18/2021 Basic Metabolic Panel Lab Routine Pancreat ic adenocarcinoma 1 Occurrences starting 11/18/2020 until 05/18/2021 CBC and Differential Lab Routine Pancreati c adenocarcinoma 1 Occurrences starting 11/18/2020 until 05/18/2021 Hepatic Function Panel Lab Routine Pancrea tic adenocarcinoma 1 Occurrences starting 11/18/2020 until 05/18/2021 Hepatitis C Virus Lab Routine Other cirrho sis of liver FibroSURE 1 Occurrences starting 11/18/2020 until 05/18/2021 Cancer antigen 19-9 Lab Routine Pancreatic adenocarcinoma Expected: 11/18/2020, Expires: CT Abdomen Pelvis with Imaging STAT Pancrea tic adenocarcinoma and without Contrast Order Schedule Name Type Priority Associated Diag noses Ordered: 11/18/2020 Referral to Genetic Outpatient Routine Pancreatic adenocarcinoma Counseling Program Referral Health Maintenance Due Date Last Done Comments MMR Vaccines (1 of - 1972 Standard series) Varicella Vaccines (1 [...] Malignant neoplasm of pancreas, part un specified Other cirrhosis of liver documented in this encounter
--- OUTSIDE RECORDS SUMMARY | 2021-01-03 16:12 | CCD | Continuity of Care Document ---
Author Author Sheri STARK HAND CLOTH EXAMINER Organization Unknown Address [address] [place] [address] Phone [phone] Care Team Providers Care Domestic Cleaner Name Role Phone [facility] AUTM [facility] AUTM [facility] AUTM [phone] Lisa Verdugo PA-C AUTM [phone] Raad Rico MD AUTM [phone] [facility] AUTM [phone] Problems Active Problems Provider Date Type 2 [...] Qnty Indications Ordering Provide r Date Onetouch Ultra Strips test four times a [...] as needed 90tabs Brad Gregory MD 07/25/2020 Alogliptin Benzoate 25mg Tablets take one tablet by mouth every day 30tabs E11.65 Brad Gregory MD E11.9 Pioglitazone HCL 15mg Tablets take one tablet [...] directed 3units Brad Gregory MD 10/21 Freestyle Santosh/Howe/Flash Monitoring System Device use as directed 1units [...] Morphine Sulfate (Concentrate) 100mg/5ML Solution Unknown Creon [id number] Caps DR Part 1 tab by mouth three times a day before meals Unknown Medical Marijuana Unknown /0 000 History Medications Amoxicillin/Clavulanate Potassium 875-125mg Tablets 1 by mouth twice a day 14tabs Shelli Mcmullen MD 07/17/2020 - 07/31/2020 Medications Administered in Office Medication SIG Qnty Indications Ordering Provider Date cefTRIAXone(Rocephin) Vial 1 G In jection Shelli Mcmullen MD 07/17/2020 Immunizations CPT Code Status Date Vaccine Lot # [id number] Given 07/25/2020 Influenza (>= 6 Months) P.F. Vaccine [id number] Vital Signs Date Vital Result Comment 11/11/2020 8:34am BP Systolic 124 mmHg BP Diastolic 82 mmHg Heart Rate 101 /min Body Temperature 97.9 F Respiratory Rate 16 /min O2 % BldC Oximetry 96 % Weight 295.12 lb Weight 133.869 kg Height 70 inches 5'10" BMI (Body Mass Index) 42.3 kg/m2 BSA (Body Surface Area) 2.46 m2 10/08/2020 9:18am BP Systolic 118 mmHg BP Diastolic 78 mmHg Heart Rate 107 /min Body Temperature 98.0 F Respiratory Rate 16 /min O2 % BldC Oximetry 97 % Weight 298.25 lb Weight 135.286 kg Height 70 inches 5'10" BMI (Body Mass Index) 42.8 kg/m2 BSA (Body Surface Area) 2.47 m2 Results Test Acquired Date Facility Test Result H/L Range Note Laboratory test finding 12/02/2020 [facility] Covid-19 <pending> Urinalysis 09/29/2020 [facility] Urinalysis (SEE NOTE) 1, 2 Source R Color lucio Normal: Yellow Clarity hazy Normal: Clear Spec [place] 1.015 1.001 - 1.030 pH 5 5 [...] Abnormal Normal: None Seen Cuture Urine 09/29/2020 [facility] Culture Urine (SEE NOTE) 3 Laboratory test finding 09/29/2020 [facility] Lactic Acid (Lactate) 1.7 mmol/L 0.2 - 2.2 PTT 29.4 seconds 24.8 - 36.7 Pro-BNP 43 pg/mL 0 - 125 Comprehensive Metabolic Panel 09/29/2020 [facility] Comprehensive Metabo (SEE NOTE) 4 Sodium 133 mEq/L Low 134 - 153 [...] >60 mL/min Afr Amer GFR >60 mL/min 5 CBC W/Automated Diff 09/29/2020 [facility] CBC W/Automated Diff (SEE NOTE) 6 WBC 2.3 10^3/uL Low 4.2 - 11.0 [...] Lymph 23.8 % Low 25.0 - 40.0 [place] 19.0 % High 3.0 - 8.0 Eos 1.3 % 0.0 - 7.0 Baso 0.9 % 0.0 - 2.0 %Ig 0.0 % 0.0 - 0.0 %NRBC 0.0 % 0.0 - 0.0 #Neut 1.27 10^3/uL Low 2.00 - 6.90 #Lymph 0.55 10^3/uL Low 0.60 - 3.40 #[place] 0.44 10^3/uL 0.00 - 0.90 #Eos 0.03 10^3/uL 0.00 - 0.70 #Baso 0.02 10^3/uL 0.00 - 0.20 #Ig 0.00 10^3/uL 0.00 - 0.10 #NRBC 0.00 10^3/uL 0.00 - 0.00 Manual Diff SEE BELOW Segs 58 % 37 - 80 %Lymph 20 % Low 25 - 40 %[place] 20 % High 3 - 8 Charla Lym 2 % RBC Morph SEE BELOW [place] 1+ Abnormal Normal: None Seen 7 PLT Est NORMAL Normal: Normal 8 Laboratory test finding 09/29/2020 [facility] Troponin T <0.01 NG/ML 0.00 - 0.10 9 Lipase Serum 1102 U/L High 13 - 60 Protime 09/29/2020 [facility] Protime 11.3 seconds 11.0 - 15.5 10 Inr 1.10 0.93 - 1.23 11 CBC W/Automated Diff 08/27/2020 [facility] CBC W/Automated Diff (SEE NOTE) 12 WBC 2.2 10^3/uL Low 4.2 - 11.0 [...] 80.0 Lymph 37.2 % 25.0 - 40.0 [place] 18.1 % High 3.0 - 8.0 Eos 2.3 % 0.0 - 7.0 Baso 0.5 % 0.0 - 2.0 %Ig 0.0 % 0.0 - 0.0 %NRBC 0.0 % 0.0 - 0.0 #Neut 0.90 10^3/uL Low 2.00 - 6.90 #Lymph 0.80 10^3/uL 0.60 - 3.40 #[place] 0.39 10^3/uL 0.00 - 0.90 #Eos 0.05 10^3/uL 0.00 - 0.70 #Baso 0.01 10^3/uL 0.00 - 0.20 #Ig 0.00 10^3/uL 0.00 - 0.10 #NRBC 0.00 10^3/uL 0.00 - 0.00 Manual Diff SEE BELOW Segs 49 % 37 - 80 %Lymph 40 % 25 - 40 %[place] 10 % High 3 - 8 %Eos 1 % 0 - 7 RBC Morph SEE BELOW 13 PLT Est DECREASED Abnormal Normal: Normal 14 Laboratory test finding 08/27/2020 [facility] Ferritin Denisse 870.9 ng/mL High 5.0 - 244 Comprehensive Metabolic Panel 08/27/2020 [facility] Comprehensive Metabo (SEE NOTE) 15 Sodium 134 mEq/L 134 - 153 Potassium [...] >60 mL/min Afr Amer GFR >60 mL/min 16 Iron Binding Capacity 08/27/2020 [facility] Iron 103 g/dL 42 - 135 Uibc 84 g/dL Low 112 - 347 Tibc 187 g/dL Low 250 - 450 Iron Sat 55 % PT/PTT 08/27/2020 [facility] Protime 13.6 seconds 11.0 - 15.5 Inr 1.03 0.93 - 1.23 PTT 29.2 seconds 24.8 - 36.7 17 Laboratory test finding 07/17/2020 [facility] Culture Wound (SEE NOTE) 18, 19 CBC W/Automated Diff 06/25/2020 [facility] CBC W/Automated Diff (SEE NOTE) 20, 21 WBC 1.9 10^3/uL Low 4.2 - 11.0 [...] Lymph 41.9 % High 25.0 - 40.0 [place] 23.1 % High 3.0 - 8.0 Eos 3.2 % 0.0 - 7.0 Baso 0.5 % 0.0 - 2.0 %Ig 0.0 % 0.0 - 0.0 %NRBC 0.0 % 0.0 - 0.0 #Neut 0.58 10^3/uL Low 2.00 - 6.90 #Lymph 0.78 10^3/uL 0.60 - 3.40 #[place] 0.43 10^3/uL 0.00 - 0.90 #Eos 0.06 10^3/uL 0.00 - 0.70 #Baso 0.01 10^3/uL 0.00 - 0.20 #Ig 0.00 10^3/uL 0.00 - 0.10 #NRBC 0.00 10^3/uL 0.00 - 0.00 Manual Diff SEE BELOW Segs 31 % Low 37 - 80 Band 1 % 0 - 5 %Lymph 53 % High 25 - 40 %[place] 14 % High 3 - 8 %Eos 1 % 0 - 7 RBC Morph SEE BELOW 22 PLT Est DECREASED Abnormal Normal: Normal 23 Comprehensive Metabolic Panel 06/25/2020 [facility] Comprehensive Metabo (SEE NOTE) 24 Sodium 137 mEq/L 134 - 153 Potassium [...] >60 mL/min Afr Amer GFR >60 mL/min 25 Laboratory test finding 06/25/2020 [facility] Hgba1c 8.2 % High 4.4 - 6.1 26 TSH Highly Sensitive 2.06 uIU/mL 0.47 - 5.01 Cve Panel 06/25/2020 [facility] Cve Panel (SEE NOTE) 27 Cholesterol 131 mg/dL 131 - 200 Triglycerides 138 mg/dL 35 - 160 HDL 49 mg/dL 29 - 86 LDL 61 mg/dL Low 65 - 175 Risk Factor 2.7 Low 3.4 - 4.9 LDL/HDL 1.24 1.00 - 3.55 28 Laboratory test finding 06/25/2020 [facility] Lipase Serum 63 U/L High 13 - 60 Amylase 92 U/L 30 - 110 Vitamin D (25-Hydroxy) 19 NG/ML 29 1 SOURCE: Clean Catch 2 URINALYSIS 3 _CULTURE URINE_ ^$[id number] ^^[id number] $$266916 ^^372166 $$824077 $$110740 $$821199 $$454504 $$260663 $$622173 $$534195 $$975210 $$940582 $$804629 $$705628 $$458873 $$173573 $$391121 $$838872 $$164303 $$867838 $$287314 $$987169 $$650833 $$580587 $$638061 $$607692 ^^265371 $$052128 $$637338 $$465957 -- Continued on next page -- Patient: DENISHA Gutierrez Order: [id number] Page 2 Culture: CULTURE URINE Status: Final $$[id number] $$[id number] REPORTED DATE/TIME: 10/03/2020 12:06 Culture: CULTURE URINE [...] coli Flag: A Patient: DENISHA Gutierrez Order: [id number] Page 3 Culture: CULTURE URINE Status: Final [...] S S . . . . . .55052-9 Gentamicin S S . . . . . .267-5 Imipenem S S . . . . . .279-0 Levofloxacin S S . . . . . .80104-9 Meropenem S S . . . . . .6652-2 Nitrofurantoin S S . . . . . .363-2 Piperacillin/Tazobactam S S . . . . . .412-7 Tetracycline S S . . . . . .496-0 Tobramycin S S . . . . . .508-2 Trimethoprim/Sulfa S S . . . . . .516-5 P1 Test performed by: [facility] [place] [facility] #: [id number] [address] [id number] [facility] [address] Patrol Commander : Jasiel Pedraza MD NPI #: Type Caster : 10/03/20.1241.XMT.SENT REF 4 COMPREHENSIVE METABOLIC PANE L 5 Male GFR Interprentation 20-49 yrs >60 mL/min Normal 50-59 yrs >56 mL/min Normal 60-69 yrs >49 mL/min Normal 70-79yrs >42 mL/min Normal 80 and above >35 mL/min Normal Female GFR Interpretation 20-39 yrs >60 mL/min Normal 40-49 yrs >58 mL/min Normal 50-59 yrs >51 mL/min Normal 60-69 yrs >45 mL/min Normal 70-79 yrs >39 mL/min Normal 80 and above >32 mL/min Normal 6 COMPLETE BLOOD COUNT 7 { SICKLE CELL (NORMAL: NONE SEEN ) 8 COMMENT: 9 TROPONIN T 0.1 ng/ml Recommended as the clinical th reshold value for Troponin T. 10 TEST PERFORMED AT [facility] [address] [place] [address] CLIA# [id number] SEE SCANNED REPORT 11 \\BLDo\\INR INTERPRETATION\\BLD x\\ Therapeutic range for Coumadin and related oral anticoagulants. -International Normalized Ratio (INR): 2 .0 - 3.0 for Venous Thrombosis, Pulmonary Embolus, Tissue heart valves, Acute TX, Atrial Fibrillation, Valvular heart disease and recurrent Systemic Embolism. -International Normalized Ratio (INR): 2 .5 - 3.5 for Mechanical Prosthetic valve. 12 COMPLETE BLOOD COUNT 13 { SICKLE CELL (NORMAL: NONE SEEN ) 14 COMMENT: 15 COMPREHENSIVE METABOLIC PANE L 16 Male GFR Interprentation 20-49 yrs >60 mL/min Normal 50-59 yrs >56 mL/min Normal 60-69 yrs >49 mL/min Normal 70-79yrs >42 mL/min Normal 80 and above >35 mL/min Normal Female GFR Interpretation 20-39 yrs >60 mL/min Normal 40-49 yrs >58 mL/min Normal 50-59 yrs >51 mL/min Normal 60-69 yrs >45 mL/min Normal 70-79 yrs >39 mL/min Normal 80 and above >32 mL/min Normal 17 \\BLDo\\INR INTERPRETATION\\BLD x\\ Therapeutic range for Coumadin and related oral anticoagulants. -International Normalized Ratio (INR): 2 .0 - 3.0 for Venous Thrombosis, Pulmonary Embolus, Tissue heart valves, Acute TX Atrial Fibrillation, Valvular heart disease and recurrent Systemic Embolism. -International Normalized Ratio (INR): 2 .5 - 3.5 for Mechanical Prosthetic valve. 18 {SPECIMEN SOURCE : R CHEST ABCESS 19 _CULTURE WOUND_ ^^815045 ^$154352 $$746773 ^^558545 $$085775 $$170261 $$328960 $$220674 $$[id number] REPORTED DATE/TIME: 07/21/2020 12:05 Culture: CULTURE WOUND [...] next page -- Patient: DENISHA Gutierrez Order: [id number] Page 2 Culture: CULTURE WOUND Status: Final Beta hemolytic Streptococcus, group A Previous result entered on 07/19/2020 05:40 ET Beta hemolytic Streptococcus, group A Beta hemolytic Streptococcus, group A Flag: A P1 Test performed by: [facility] #: [id number] [address] [id number] [place] [address] Patrol Commander : Jasiel Pedraza MD NPI #: Type Caster : 07/19/20.0829.XMT.SENT REF 07/20/20.230.XMT.SENT REF 07/21/20.XMT.SENT REF 07/21/20.DW .[facility] fax 20 FASTING 8 HOUR~.~.~<DG1.3.1>R10.84</DG1.3.1><DG1.3.1>R10.84</DG1.3.1><DG1.3.1>R10.84</DG1. 3.1><DG 21 COMPLETE BLOOD COUNT 22 { SICKLE CELL (NORMAL: NONE SEEN ) 23 COMMENT: 24 COMPREHENSIVE METABOLIC PANE L 25 Male GFR Interprentation 20-49 yrs >60 mL/min Normal 50-59 yrs >56 mL/min Normal 60-69 yrs >49 mL/min Normal 70-79yrs >42 mL/min Normal 80 and above >35 mL/min Normal Female GFR Interpretation 20-39 yrs >60 mL/min Normal 40-49 yrs >58 mL/min Normal 50-59 yrs >51 mL/min Normal 60-69 yrs >45 mL/min Normal 70-79 yrs >39 mL/min Normal 80 and above >32 mL/min Normal 26 {A1] {HB] 27 LIPID PANEL 28 CVE RISK CHOL/HDL LDL/HDL MEN: 1/2 AVERAGE 3.43 1.00 AVERAGE 4.97 3.55 2X AVERAGE 9.55 6.25 3X AVERAGE 23.99 7.99 WOMEN: 1/2 AVERAGE 3.27 1.47 AVERAGE 4.44 3.22 2X AVERAGE 7.05 5.03 3X AVERAGE 11.04 6.14 29 VITAMIN-D(25HYDROXY) Deficiency: <=20 ng/ml Insufficiency: 21-29 ng/ml Preferred level: => 30 ng/ml Procedures Date Code Description Status 07/17/2020 87299 I & D Abscess Simple Completed Medical Devices Description No Information Available Encounters Description No Information Available Assessments Date Code Description Provider 11/11/2020 C25.9 Malignant neoplasm of pancreas, unspecified Lisa Verdugo PA-C 11/11/2020 E83.119 Hemochromatosis, unspecified Kia Verdugo PA-C 11/11/2020 C85.90 Non-Hodgkin lymphoma, unspecifie d, unspecified [...] 8:20 am - Lisa Verdugo PA-C at [facility] 11/11/2020 - Lisa Verdugo PA-C* C25.9 Malignant neoplasm of pancreas, unspecified* Comments:* He has repeat biopsy scheduled on 11/15/2020. Following with pain management and [facility]. He is going to call Pain Management for medication adjustment. Recent [facility] note was reviewed * E83.119 Hemochromatosis, unspecified* Comments:* Following with bottle feeder. He is going to start phlebotomy for hemochromatosis * C85.90 Non-Hodgkin lymphoma, unspecified, unspecified site* Comments:* Following with [facility]. Recent note was reviewed. * E11.9 Type 2 diabetes mellitus without complications* Comments:* He brought his BS log to the office for review. He had one reading of 178 and most are in mid 200-300s. Will increase Basaglar to 14 units. Continue with other medications. Continue to follow a diabetic diet like low carb intake/sugar int dotty/avoiding snacking in the night time or after dinner and a regular exercise regimen. Advised to continue checking BS at home, fasting and 2 hr PP before and after insulin. He will let us know if he has reading below 100. * Follow up:* 1 month Functional Status Description No Information Available Mental Status Description No Information Available Referrals Refer to Reason for Referral Status Appt Date [facility] 50-year-old male with subcut aneous abscess on the right infra-axillary area with 1 small opening that was draining purulent material. There is an area of 6 x 3 cm induration which was erythematous and tender. Please evaluate and treat. Thank you. Closed [address] [place] [address] [phone] Raad Rico MD 50 year old male with his tory of GRIGGS and recently discovered liver cirrhosis after CT was ordered due to abdominal pain. Please evaluate and treat. Thank you. Patient Notified 08/29/2020 [address] [place] [address] [phone] [facility] 50 year old male with hi story of Non-Hodgkin's Lymphoma. Patient states that he has been cancer free for 4 years. He states he was previously seen by [facility] but has not been seen in quite a while and would like to reestablish. He also has leukopenia and low platelet count. He was recently discovered to have liver cirrhosis which is currently being worked up. Please evaluate and treat. Thank you. Closed 07/24/2020 [address] [place] [address] [phone]
--- OUTSIDE RECORDS SUMMARY | 2021-01-03 16:13 | CCD | Summary of Care ---
Author Author [facility] Address Unknown Phone Unavailable Care Team Providers Care Nursing Unit Manager Name Role Phone Asha Pozo PCP Encounter Details Care Team Description Date Type Department 11/15/2020 [facility] Anatomical Encounter Pathology at [place] [address] [place] [address] Allergies No Known Allergiesdocumented as of this encounter (statuses as of 11/16/2020) Medications End Date Status Medication Sig Dispensed Refills Start Date Active atenolol (TENORMIN) 50 MG Take 50 mg by 0 tablet mouth daily. Active lisinopril Take 10 mg by 0 (PRINIVIL,ZESTRIL) 10 MG mouth daily. tablet Active glipiZIDE (GLUCOTROL) 2.5 Take 2.5 mg 0 MG 24 hr tablet by mouth daily. Active hydrocodone-acetaminophen Take 1 tablet 0 (VICODIN) 5-500 MG per by mouth as tablet needed. Active atorvastatin (LIPITOR) 10 Take 10 mg by 0 MG tablet mouth daily. documented as of this encounter (statuses as of 11/16/2020) Active Problems Problem Noted Date Non Hodgkin's lymphoma, stage IA Hypertension Diabetes mellitus Cirrhosis due to hemochromatosis documented as of this encounter (statuses as of 11/16/2020) Social History Date Tobacco Use Types Packs/Day Years Used Never Assessed 0.5 25 Smokeless Tobacco: Former User Sex Assigned at Date Recorded Not on file documented as of this encounter Last Filed Vital Signs Not on filedocumented in this encounter Plan of Treatment Care Team Description Date Type Specialty Sandra Hubbard MD [address] [place] [address] [phone] 11/18/2020 Telemedicine Surgery Date/Time Name Type Priority Associated Diag noses 11/15/2020 12:24 PM EST Fine Needle Aspirate Pathology and Routine Cytology Order Schedule Name Type Priority Associated Diag noses Once for 1 Occurrences starting 11/15/19 21 until 11/15/2020 Fine Needle Aspirate Pathology and Routine Cytology Health Maintenance Due Date Last Done Comments [...]
--- OUTSIDE RECORDS SUMMARY | 2021-01-03 16:13 | CCD | Continuity of Care Document ---
Author Author Sheri RODRIGUEZ MD Organization Unknown Address [address] [place] [address] Phone [phone] Care Team Providers Care Parts Sales Counterperson Name Role Phone Isaac Mondragon M.D. AUTM [phone] Yesy Coley MD AUTM [phone] Brad Gregory M.D. AUTM [phone] Lisa Verdugo P.A.-C AUTM [phone] Petra Espinosa M.D. 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, face and neck Domingo Martines MD Onset: 04/20/2011 Chronic nonalcoholic liver disease Domingo Martines MD Onset: 04/20/2011 Type 2 diabetes mellitus Domingo Martines MD Onset: 04/20/2011 Essential hypertension Domingo Martines MD Onset: Asthma without status asthmaticus Bogdan Carrasco Onset: 04/20/2011 Hypertrophy of tonsils Domingo Martines MD Onset: Social History Type Date Description Comments Sex Unknown Smokeless Tobacco Current Smokeless Tobacco User , Uses Once Daily 1can ETOH Use Denies alcohol use Tobacco Use Start: Unknown Yes occasionally Allergies, Adverse Reactions, Alerts Description No Known Drug Allergies Medications Active Medications SIG Qnty Indications Ordering Provide r Date Lisinopril 10mg Tablets qd 90tabs 791.0 Unknown 250.00 401.9 Glipizide ER 2.5mg Tablets ER 24HR 1 po qd 30tabs 250.00 Unknown Alogliptin-Pioglitazone 25-15mg Ta blets daily Unknown Gabapentin 100mg Capsules 1 by mouth three times a day Unknown Paxil 10mg Tablets 1 by mo uth every day Unknown Pioglitazone HCL 15mg Tablets daily Unknown Basaglar Kwikpen 100 Unit/ML Solution Pen-Inject 12 unit daily Unknown Immunizations Description No Information Available Vital Signs Date Vital Result Comment 10/16/2020 10:29am BP Systolic 150 mmHg BP Diastolic 82 mmHg Height 71 inches 5'11" Weight 300.00 lb BMI (Body Mass Index) 41.8 kg/m2 [place] Body Weight 172 lb Weight 136.080 kg BSA (Body Surface Area) 2.51 m2 12/21/2011 9:57am BP Systolic 131 mmHg BP Diastolic 86 mmHg Height 71 inches 5'11" Weight 277.00 lb BMI (Body Mass Index) 38.6 kg/m2 [place] Body Weight 172 lb Weight 125.647 kg Results Description No Information Available Procedures Description No Information Available Medical Devices Description No Information Available Encounters Type Date Location Provider Dx Diagnosis Office Visit 10/16/2020 10:15a [facility] Adam Rodriguez MD C25.0 Malignant neoplasm of head of pancreas E83.110 Hereditary hemochromatosis K74.69 Other cirrhosis of liver Assessments Date Code Description Provider 10/16/2020 C25.0 Malignant neoplasm of head of pa ncreas Adam Rodriguez MD 10/16/2020 E83.110 Hereditary hemochromatosis Adam Rodriguez MD 10/16/2020 K74.69 Other cirrhosis of liver Adam guzman MD Plan of Treatment 10/16/2020 - Adam Rodriguez MD* C25.0 Malignant neoplasm of head of pancreas * E83.110 Hereditary hemochromatosis * K74.69 Other cirrhosis of liver * * Referral:* Petra Espinosa M.D., Hematology & Oncology * Follow up:* TBD/after heme onc. evals. 3-4 months * Recommendations:* refer to Heme/Onc. I will defer to Dr Espinosa if the pancreatic head mass needs repeat biopsy by interventional radiology (or EUS) or if PET scan more appropriate. He needs to be staged for resectability. Functional Status Description No Information Available Mental Status Description No Information Available Referrals Refer to Dr Reason for Referral Status Appt Date Petra Espinosa M.D. Pancreatic head mass, c/w th malignancy. duodenal/papilla biopsy "suspicious" for adenoCA. ERCP brushing negative. Bile duct obstruction managed with stent. Please manage. Created [facility] Medical Oncology & Hematology [address] [place] [id number] [phone]
--- OUTSIDE RECORDS SUMMARY | 2021-01-03 16:13 | CCD | Continuity of Care Document ---
Author Author Sheri Curiel D.O. Organization Unknown Address [address], [address] [place] [address] Phone [phone] Care Team Providers Care Reinforcement Maker Name Role Phone Petra Espinosa MD AUTM [phone] Problems Description No Information Available Social History Type Date Description Comments Sex Unknown Allergies, Adverse Reactions, Alerts Description No Information Available Medications Description No Information Available Immunizations Description No Information Available Vital Signs Description No Information Available Results Description No Information Available Procedures Date Code Description Status 10/28/2020 88462 Endo W/Eus & Fna (Stomach) Compl eted Medical Devices Description No Information Available Encounters Description No Information Available Assessments Date Code Description Provider 10/28/2020 C25.0 Malignant neoplasm of head of pa ncreas Philippe Curiel DO Plan of Treatment No Information Available Functional Status Description No Information Available Mental Status Description No Information Available Referrals Refer to Reason for Referral Status Appt Date Philippe Curiel DO DIAG EUS Created 10/28/2020 [address] [facility] [address] [place] [address] [phone]
--- OUTSIDE RECORDS SUMMARY | 2021-01-03 16:13 | CCD | Summary of Care ---
Author Author [facility] Address Unknown Phone Unavailable Care Team Providers Care Adzing And Boring Machine Operator Name Role Phone Leonarda Motta PCP Encounter Details Care Team Description Date Type Department 10/09/2020 [facility] Anatomical Encounter Pathology at [place] [address] [place] [address] Allergies No Known Allergiesdocumented as of this encounter (statuses as of 10/10/2020) Medications End Date Status Medication Sig Dispensed [...] as of this encounter (statuses as of 10/10/2020) Active Problems Problem Noted Date Non Hodgkin's lymphoma, stage IA Hypertension Diabetes mellitus Cirrhosis due to hemochromatosis documented as of this encounter (statuses as of 10/10/2020) Social History Date Tobacco Use Types Packs/Day Years Used Never Assessed 0.5 25 Smokeless Tobacco: Former User Sex Assigned at Date Recorded Not on file documented as of this encounter Last Filed Vital Signs Not on filedocumented in this encounter Plan of Treatment Date/Time Name Type Priority Associated Diag noses 10/09/2020 12:44 PM EST Surgical pathology Pathology and Routine consult Cytology Order Schedule Name Type Priority Associated Diag noses Once for 1 Occurrences starting 10/09/20 20 until 10/09/2020 Surgical pathology Pathology and Routine consult Cytology Health Maintenance Due Date Last Done [...]
--- OUTSIDE RECORDS SUMMARY | 2021-01-03 16:13 | CCD | Continuity of Care Document ---
Author Author Sheri BELL PA-C Organization Unknown Address [address] [place] [id number] Phone [phone] Care Team Providers Care Control System Computer Scientist Name Role Phone [facility] AUTM [facility] AUTM [facility] AUTM [phone] Lisa Bell PA-C AUTM [phone] Raad Rico MD AUTM [facility] AUTM [phone] Problems Active Problems Provider Date Type 2 [...] SIG Qnty Indications Ordering Provide r Date Ibuprofen 800mg Tablets 1 tab by mouth three times a day as needed 90tabs Brad Gregory MD 07/25/2020 [employer] Ultra Strips Test Two Times A Day 150units E11.65 Brad Gregory MD 03/05/2020 E11.9 Alogliptin Benzoate 25mg Tablets take one tablet [...] every day 90tabs F41.9 Brad Gregory MD Atorvastatin Calcium 20mg Tablets take one tablet by mouth every day 90tabs E78.5 Brad Gregory MD [employer] Ultra 2 w/Device Kit use monitor to test blood sugars as directed (currently three times a day) 1units Brad Gregory MD 10/26/2018 Freestyle Santosh/Sensor/Flash Monitoring System Misc use as directed 3units Shelli Mcmullen MD Freestyle Santosh/[place]/Flash Monitoring System Device use as directed 1units E11.9 Shelli Mcmullen MD E11.65 Glipizide 10mg Tablets take one tablet by mouth twice a day 180tabs E11.9 Brad Gregory MD 10/06/2017 E11.8 E11.65 Onetouch Delica Lancets Extra Fine 33G Misc Use To Test Blood Sugar Three Times A Day 100units E11.65 Brad Gregory MD 09/06/2017 E11.9 Glucometer Device use daily 1units E11.9 Brad Gregory MD 09/08/2016 Gabapentin 100mg Capsules take one capsule by mouth every 8 hours 270caps Brad Gregory MD 09/08 Lisinopril 10mg Tablets take one tablet by mouth every day 90tabs I10 Brad Gregory MD 05/19/2016 Epipen 2-Shankar 0.3mg/0 .3ML Solution Auto-Inject 0.3 mg intramuscular as needed 2units Brad Gregory MD History Medications Amoxicillin/Clavulanate Potassium 875-125mg Tablets 1 by mouth twice a day 14tabs Shelli Mcmullen MD 07/17/2020 - 07/31/2020 Medications Administered in Office Medication SIG Qnty Indications Ordering Provider Date cefTRIAXone(Rocephin) Vial 1 G In jection Shelli Mcmullen MD 07/17/2020 Immunizations CPT Code Status Date Vaccine Lot # [id number] Given 07/25/2020 Influenza (>= 6 Months) P.F. Vaccine [id number] Vital Signs Date Vital Result Comment 08/01/2020 8:59am BP Systolic 148 mmHg BP Diastolic 78 mmHg Heart Rate 88 /min Body Temperature 98.2 F Respiratory Rate 16 /min Weight 316.00 lb Weight 143.338 kg Height 70 inches 5'10" BMI (Body Mass Index) 45.3 kg/m2 BSA (Body Surface Area) 2.54 m2 07/25/2020 8:42am BP Systolic 138 mmHg BP Diastolic 86 mmHg Heart Rate 97 /min Body Temperature 98.0 F Respiratory Rate 16 /min O2 % BldC Oximetry 95 % Weight 316.38 lb Weight 143.508 kg Height 70 inches 5'10" BMI (Body Mass Index) 45.4 kg/m2 BSA (Body Surface Area) 2.54 m2 Results Test Acquired Date Facility Test Result H/L Range Note Urinalysis 09/29/2020 [facility] Urinalysis (SEE NOTE) 1, 2 Source R Color lucio Normal: Yellow Clarity hazy Normal: Clear Spec [place] 1.015 1.001 - 1.030 pH 5 5 [...] Abnormal Normal: None Seen Cuture Urine 09/29/2020 [facility] Culture Urine (SEE NOTE) 3 Laboratory test finding 09/29/2020 [facility] [place] Lactic Acid (Lactate) 1.7 mmol/L 0.2 - 2.2 PTT 29.4 seconds 24.8 - 36.7 Pro-BNP 43 pg/mL 0 - 125 Comprehensive Metabolic Panel 09/29/2020 [facility] Comprehensive Metabo (SEE NOTE) 4 Sodium [...] >60 mL/min 5 CBC W/Automated Diff 09/29/2020 [facility] CBC W/Automated Diff (SEE NOTE) 6 WBC [...] Lymph 23.8 % Low 25.0 - 40.0 [place] 19.0 % High 3.0 - 8.0 Eos 1.3 % 0.0 - 7.0 Baso 0.9 % 0.0 - 2.0 %Ig 0.0 % 0.0 - 0.0 %NRBC 0.0 % 0.0 - 0.0 #Neut 1.27 10^3/uL Low 2.00 - 6.90 #Lymph 0.55 10^3/uL Low 0.60 - 3.40 #[place] 0.44 10^3/uL 0.00 - 0.90 #Eos 0.03 10^3/uL 0.00 - 0.70 #Baso 0.02 10^3/uL 0.00 - 0.20 #Ig 0.00 10^3/uL 0.00 - 0.10 #NRBC 0.00 10^3/uL 0.00 - 0.00 Manual Diff SEE BELOW Segs 58 % 37 - 80 %Lymph 20 % Low 25 - 40 %[place] 20 % High 3 - 8 Charla Lym 2 % RBC Morph SEE BELOW [place] 1+ Abnormal Normal: None Seen 7 PLT Est NORMAL Normal: Normal 8 Laboratory test finding 09/29/2020 [facility] l Troponin T <0.01 NG/ML 0.00 - 0.10 9 Lipase Serum 1102 U/L High 13 - 60 Protime 09/29/2020 [facility] Protime 11.3 seconds 11.0 - 15.5 10 Inr 1.10 0.93 - 1.23 11 CBC W/Automated Diff 08/27/2020 [facility] CBC W/Automated Diff (SEE NOTE) 12 WBC [...] 80.0 Lymph 37.2 % 25.0 - 40.0 [place] 18.1 % High 3.0 - 8.0 Eos 2.3 % 0.0 - 7.0 Baso 0.5 % 0.0 - 2.0 %Ig 0.0 % 0.0 - 0.0 %NRBC 0.0 % 0.0 - 0.0 #Neut 0.90 10^3/uL Low 2.00 - 6.90 #Lymph 0.80 10^3/uL 0.60 - 3.40 #[place] 0.39 10^3/uL 0.00 - 0.90 #Eos 0.05 10^3/uL 0.00 - 0.70 #Baso 0.01 10^3/uL 0.00 - 0.20 #Ig 0.00 10^3/uL 0.00 - 0.10 #NRBC 0.00 10^3/uL 0.00 - 0.00 Manual Diff SEE BELOW Segs 49 % 37 - 80 %Lymph 40 % 25 - 40 %[place] 10 % High 3 - 8 %Eos 1 % 0 - 7 RBC Morph SEE BELOW 13 PLT Est DECREASED Abnormal Normal: Normal 14 Laboratory test finding 08/27/2020 [facility] l Ferritin Denisse 870.9 ng/mL High 5.0 - 244 Comprehensive Metabolic Panel 08/27/2020 [facility] Comprehensive Metabo (SEE NOTE) 15 Sodium [...] >60 mL/min 16 Iron Binding Capacity 08/27/2020 [facility] Iron 103 g/dL 42 - 135 Uibc 84 g/dL Low 112 - 347 Tibc 187 g/dL Low 250 - 450 Iron Sat 55 % PT/PTT 08/27/2020 [facility] Protime 13.6 seconds 11.0 - 15.5 Inr 1.03 0.93 - 1.23 PTT 29.2 seconds 24.8 - 36.7 17 Laboratory test finding 07/17/2020 [facility] l Culture Wound (SEE NOTE) 18, 19 CBC W/Automated Diff 06/25/2020 [facility] CBC W/Automated Diff (SEE NOTE) 20, 21 [...] Lymph 41.9 % High 25.0 - 40.0 [place] 23.1 % High 3.0 - 8.0 Eos 3.2 % 0.0 - 7.0 Baso 0.5 % 0.0 - 2.0 %Ig 0.0 % 0.0 - 0.0 %NRBC 0.0 % 0.0 - 0.0 #Neut 0.58 10^3/uL Low 2.00 - 6.90 #Lymph 0.78 10^3/uL 0.60 - 3.40 #[place] 0.43 10^3/uL 0.00 - 0.90 #Eos 0.06 10^3/uL 0.00 - 0.70 #Baso 0.01 10^3/uL 0.00 - 0.20 #Ig 0.00 10^3/uL 0.00 - 0.10 #NRBC 0.00 10^3/uL 0.00 - 0.00 Manual Diff SEE BELOW Segs 31 % Low 37 - 80 Band 1 % 0 - 5 %Lymph 53 % High 25 - 40 %[place] 14 % High 3 - 8 %Eos 1 % 0 - 7 RBC Morph SEE BELOW 22 PLT Est DECREASED Abnormal Normal: Normal 23 Comprehensive Metabolic Panel 06/25/2020 [facility] Comprehensive Metabo (SEE NOTE) 24 Sodium [...] >60 mL/min 25 Laboratory test finding 06/25/2020 [facility] Hgba1c 8.2 % High 4.4 - 6.1 26 TSH Highly Sensitive 2.06 uIU/mL 0.47 - 5.01 Cve Panel 06/25/2020 [facility] Cve Panel (SEE NOTE) 27 Cholesterol 131 mg/dL 131 - 200 Triglycerides 138 mg/dL 35 - 160 HDL 49 mg/dL 29 - 86 LDL 61 mg/dL Low 65 - 175 Risk Factor 2.7 Low 3.4 - 4.9 LDL/HDL 1.24 1.00 - 3.55 28 Laboratory test finding 06/25/2020 [facility] l Lipase Serum 63 U/L High 13 - 60 Amylase 92 U/L 30 - 110 Vitamin D (25-Hydroxy) 19 NG/ML 29 1 SOURCE: Clean Catch 2 URINALYSIS 3 _CULTURE URINE_ ^$[id number] ^^931715 $$198048 ^^584458 $$559560 $$440654 $$603575 $$237255 $$918286 $$653644 $$584568 $$249532 $$949727 $$331905 $$920261 $$460726 $$802263 $$687044 $$754734 $$551986 $$607548 $$383060 $$046694 $$943663 $$190854 $$306723 $$886726 ^^695022 $$401264 $$782520 $$215370 -- Continued on next page -- Patient: DENISHA Gutierrez Order: [id number] Page 2 Culture: CULTURE URINE Status: Final $$[id number] $$[id number] REPORTED DATE/TIME: 10/03/2020 12:06 Culture: CULTURE URINE [...] coli Flag: A Patient: DENISHA Gutierrez Order: [id number] Page 3 Culture: CULTURE URINE Status: Final [...] S S . . . . . .48787-1 Gentamicin S S . . . . . .267-5 Imipenem S S . . . . . .279-0 Levofloxacin S S . . . . . .50230-9 Meropenem S S . . . . . .6652-2 Nitrofurantoin S S . . . . . .363-2 Piperacillin/Tazobactam S S . . . . . .412-7 Tetracycline S S . . . . . .496-0 Tobramycin S S . . . . . .508-2 Trimethoprim/Sulfa S S . . . . . .516-5 P1 Test performed by: [facility] #: [id number] [address] [id number] [facility] [address] Repairer Recreational Vehicle : Jasiel Pedraza MD NPI #: Foot Roentgenologist : 10/03/20.1241.XMT.SENT REF 4 COMPREHENSIVE METABOLIC PANE [...] for Troponin T. 10 TEST PERFORMED AT [facility] [address] [place] [address] CLIA# [id number] SEE SCANNED REPORT 11 \\BLDo\\INR INTERPRETATION\\BLD x\\ Therapeutic range for Coumadin and related oral anticoagulants. -International Normalized Ratio (INR): 2 .0 - 3.0 for Venous Thrombosis, Pulmonary Embolus, Tissue heart valves, Acute IA, Atrial Fibrillation, Valvular heart disease and recurrent [...] Thrombosis, Pulmonary Embolus, Tissue heart valves, Acute IA Atrial Fibrillation, Valvular heart disease and recurrent Systemic Embolism. -International Normalized Ratio (INR): 2 .5 - 3.5 for Mechanical Prosthetic valve. 18 {SPECIMEN SOURCE : R CHEST ABCESS 19 _CULTURE WOUND_ ^^279620 ^$061573 $$062957 ^^529435 $$248274 $$203880 $$857776 $$556412 $$443303 REPORTED DATE/TIME: 07/21/2020 12:05 Culture: CULTURE WOUND [...] next page -- Patient: DENISHA Gutierrez Order: [id number] Page 2 Culture: CULTURE WOUND Status: Final Beta hemolytic Streptococcus, group A Previous result entered on 07/19/2020 05:40 ET Beta hemolytic Streptococcus, group A Beta hemolytic Streptococcus, group A Flag: A P1 [facility] performed [facility]: [facility] #: [id number] [address] [place] [id number] [facility] [address] Repairer Recreational Vehicle : Jasiel Pedraza MD NPI #: Foot Roentgenologist : 07/19/20.0829.XMT.SENT REF 07/20/20.2301.XMT.SENT REF 07/21/20.2243.XMT.SENT REF 07/21/20.DW .to NATHANBOBBI via fax 20 FASTING 8 HOUR~.~.~<DG1.3.1>R10.84</DG1.3.1><DG1.3.1>R10.84</DG1.3.1><DG1.3.1>R10.84</DG1. 3.1><DG [...] ng/ml Procedures Date Code Description Status 07/17/2020 62762 I & D Abscess Simple Completed Medical Devices Description No Information Available Encounters Description No Information Available Assessments Date Code Description Provider 08/01/2020 L02.411 Cutaneous abscess of right axill [...] site Lisa Bell PA-C Plan of Treatment 08/01/2020 - Gene Carvajal MD* L02.411 Cutaneous abscess of right axilla* Comments:* Continue measures to promote drainage by rinsing in the shower. Dry gauze dressing as needed.Follow-up as needed. Functional Status Description No Information Available Mental Status Description No Information Available Referrals Refer to Reason for Referral Status Appt Date [facility] 50-year-old male with subcut aneous abscess on the right infra-axillary area with 1 small opening that was draining purulent material. There is an area of 6 x 3 cm induration which was erythematous and tender. Please evaluate and treat. Thank you. Closed [address], [place] [id number] [phone] Raad Rico MD 50 year old male with his tory of GRIGGS and recently discovered liver cirrhosis after CT was ordered due to abdominal pain. Please evaluate and treat. Thank you. Patient Notified 08/29/2020 [address] [place] [address] [phone] [facility] 50 year old male with hi story of Non-Hodgkin's Lymphoma. Patient states that he has been cancer free for 4 years. He states he was previously seen by [facility] but has not been seen in quite a while and would like to reestablish. He also has leukopenia and low platelet count. He was recently discovered to have liver cirrhosis which is currently being worked up. Please evaluate and treat. Thank you. Closed 07/24/2020 [address] [place] [address] [phone]
--- OUTSIDE RECORDS SUMMARY | 2021-01-03 16:13 | CCD | Summary of Care ---
Author Author [facility] Address Unknown Phone Unavailable Care Team Providers Care Top Precipitator Operator Helper Name Role Phone Leonarda Motta PCP Encounter Details Care Team Description Date Type Department 10/28/2020 [facility] Clinical [place] [address] Allergies No Known Allergiesdocumented as of this encounter (statuses as of 10/29/2020) Medications End Date Status Medication Sig Dispensed [...] as of this encounter (statuses as of 10/29/2020) Active Problems Problem Noted Date Non Hodgkin's lymphoma, stage IA Hypertension Diabetes mellitus Cirrhosis due to hemochromatosis documented as of this encounter (statuses as of 10/29/2020) Social History Date Tobacco Use Types Packs/Day Years Used Never Assessed 0.5 25 Smokeless Tobacco: Former User Sex Assigned at Date Recorded Not on file documented as of this encounter Last Filed Vital Signs Not on filedocumented in this encounter Plan of Treatment Date/Time Name Type Priority Associated Diag noses 10/28/2020 3:06 PM EST Hematopathology Pathology and Routine Cytology Order Schedule Name Type Priority Associated Diag noses Once for 1 Occurrences starting 10/28/20 20 until 10/28/2020 Hematopathology Pathology and Routine Cytology Health Maintenance Due [...]
--- OUTSIDE RECORDS SUMMARY | 2021-01-03 16:13 | CCD | Continuity of Care Document ---
Author Author Sheri BELL PA-C Organization Unknown Address [address] [place] [address] Phone [phone] Care Team Providers Care Plate Straightener Name Role Phone [facility] AUTM [phone] Lisa Bell PA-C AUTM [phone] Raad Rico MD [facility] AUTM [phone] Problems Active Problems Provider Date Type 2 [...] Indications Ordering Provide r Date Onetouch Delica Lancets Extra Fine 33G Misc use once a day 100units Brad Gregory MD 2019 Basaglar Kwikpen 100 Unit/ML Solution Pen-Inject 12 units subcutaneous every day 9ml Brad Gregory [...] directed 3units Brad Gregory MD 10/21 Freestyle Santosh/[place]/Flash Monitoring System Device use as directed 1units [...] Morphine Sulfate (Concentrate) 100mg/5ML Solution Unknown Creon [id number] Caps DR Part 1 tab by mouth three times a day before meals Unknown Medical Marijuana Unknown 0000/0 000 History Medications Amoxicillin/Clavulanate Potassium 875-125mg Tablets 1 by mouth twice a day 14tabs Shelli Mcmullen MD 07/17/2020 - 07/31/2020 Medications Administered in Office Medication SIG Qnty Indications Ordering Provider Date cefTRIAXone(Rocephin) Vial 1 G In jection Shelli Mcmullen MD 07/17/2020 Immunizations CPT Code Status Date Vaccine Lot # [id number] Given 07/25/2020 Influenza (>= 6 Months) P.F. [...] Test Result H/L Range Note Urinalysis 09/29/2020 [facility] Urinalysis (SEE NOTE) 1, 2 Source R Color lucio Normal: Yellow Clarity hazy Normal: Clear Spec Cascade 1.015 1.001 - 1.030 pH 5 5 [...] Abnormal Normal: None Seen Cuture Urine 09/29/2020 [facility] Culture Urine (SEE NOTE) 3 Laboratory test finding 09/29/2020 [facility] Lactic Acid (Lactate) 1.7 mmol/L 0.2 - 2.2 PTT 29.4 seconds 24.8 - 36.7 Pro-BNP 43 pg/mL 0 - 125 Comprehensive Metabolic Panel 09/29/2020 [facility]spital Comprehensive Metabo (SEE NOTE) 4 Sodium [...] >60 mL/min 5 CBC W/Automated Diff 09/29/2020 [facility] CBC W/Automated Diff (SEE NOTE) [...] Lymph 23.8 % Low 25.0 - 40.0 [place] 19.0 % High 3.0 - 8.0 Eos 1.3 % 0.0 - 7.0 Baso 0.9 % 0.0 - 2.0 %Ig 0.0 % 0.0 - 0.0 %NRBC 0.0 % 0.0 - 0.0 #Neut 1.27 10^3/uL Low 2.00 - 6.90 #Lymph 0.55 10^3/uL Low 0.60 - 3.40 #[place] 0.44 10^3/uL 0.00 - 0.90 #Eos 0.03 10^3/uL 0.00 - 0.70 #Baso 0.02 10^3/uL 0.00 - 0.20 #Ig 0.00 10^3/uL 0.00 - 0.10 #NRBC 0.00 10^3/uL 0.00 - 0.00 Manual Diff SEE BELOW Segs 58 % 37 - 80 %Lymph 20 % Low 25 - 40 %[place] 20 % High 3 - 8 Charla Lym 2 % RBC Morph SEE BELOW [place] 1+ Abnormal Normal: None Seen 7 PLT Est NORMAL Normal: Normal 8 Laboratory test finding 09/29/2020 [facility] l Troponin T <0.01 NG/ML 0.00 - 0.10 9 Lipase Serum 1102 U/L High 13 - 60 Protime 09/29/2020 [facility] Protime 11.3 seconds 11.0 - 15.5 10 Inr 1.10 0.93 - 1.23 11 CBC W/Automated Diff 08/27/2020 [facility] CBC W/Automated Diff (SEE NOTE) [...] 80.0 Lymph 37.2 % 25.0 - 40.0 [place] 18.1 % High 3.0 - 8.0 Eos 2.3 % 0.0 - 7.0 Baso 0.5 % 0.0 - 2.0 %Ig 0.0 % 0.0 - 0.0 %NRBC 0.0 % 0.0 - 0.0 #Neut 0.90 10^3/uL Low 2.00 - 6.90 #Lymph 0.80 10^3/uL 0.60 - 3.40 #[place] 0.39 10^3/uL 0.00 - 0.90 #Eos 0.05 10^3/uL 0.00 - 0.70 #Baso 0.01 10^3/uL 0.00 - 0.20 #Ig 0.00 10^3/uL 0.00 - 0.10 #NRBC 0.00 10^3/uL 0.00 - 0.00 Manual Diff SEE BELOW Segs 49 % 37 - 80 %Lymph 40 % 25 - 40 %[place] 10 % High 3 - 8 %Eos 1 % 0 - 7 RBC Morph SEE BELOW 13 PLT Est DECREASED Abnormal Normal: Normal 14 Laboratory test finding 08/27/2020 [facility] l Ferritin Denisse 870.9 ng/mL High 5.0 - 244 Comprehensive Metabolic Panel 08/27/2020 [facility]ital Comprehensive Metabo (SEE NOTE) 15 Sodium [...] >60 mL/min 16 Iron Binding Capacity 08/27/2020 [facility] Iron 103 g/dL 42 - 135 Uibc 84 g/dL Low 112 - 347 Tibc 187 g/dL Low 250 - 450 Iron Sat 55 % PT/PTT 08/27/2020 [facility] Protime 13.6 seconds 11.0 - 15.5 Inr 1.03 0.93 - 1.23 PTT 29.2 seconds 24.8 - 36.7 17 Laboratory test finding 07/17/2020 [facility] l Culture Wound (SEE NOTE) 18, 19 CBC W/Automated Diff 06/25/2020 [facility] CBC W/Automated Diff (SEE NOTE) [...] Lymph 41.9 % High 25.0 - 40.0 [place] 23.1 % High 3.0 - 8.0 Eos 3.2 % 0.0 - 7.0 Baso 0.5 % 0.0 - 2.0 %Ig 0.0 % 0.0 - 0.0 %NRBC 0.0 % 0.0 - 0.0 #Neut 0.58 10^3/uL Low 2.00 - 6.90 #Lymph 0.78 10^3/uL 0.60 - 3.40 #[place] 0.43 10^3/uL 0.00 - 0.90 #Eos 0.06 10^3/uL 0.00 - 0.70 #Baso 0.01 10^3/uL 0.00 - 0.20 #Ig 0.00 10^3/uL 0.00 - 0.10 #NRBC 0.00 10^3/uL 0.00 - 0.00 Manual Diff SEE BELOW Segs 31 % Low 37 - 80 Band 1 % 0 - 5 %Lymph 53 % High 25 - 40 %[place] 14 % High 3 - 8 %Eos 1 % 0 - 7 RBC Morph SEE BELOW 22 PLT Est DECREASED Abnormal Normal: Normal 23 Comprehensive Metabolic Panel 06/25/2020 [facility] Comprehensive Metabo (SEE NOTE) 24 Sodium [...] >60 mL/min 25 Laboratory test finding 06/25/2020 [facility] Hgba1c 8.2 % High 4.4 - 6.1 26 TSH Highly Sensitive 2.06 uIU/mL 0.47 - 5.01 Cve Panel 06/25/2020 [facility] Cve Panel (SEE NOTE) 27 Cholesterol 131 mg/dL 131 - 200 Triglycerides 138 mg/dL 35 - 160 HDL 49 mg/dL 29 - 86 LDL 61 mg/dL Low 65 - 175 Risk Factor 2.7 Low 3.4 - 4.9 LDL/HDL 1.24 1.00 - 3.55 28 Laboratory test finding 06/25/2020 [facility] Lipase Serum 63 U/L High 13 - 60 Amylase 92 U/L 30 - 110 Vitamin D (25-Hydroxy) 19 NG/ML 29 1 SOURCE: Clean Catch 2 URINALYSIS 3 _CULTURE URINE_ ^$186725 ^^486087 $$074381 ^^830152 $$773976 $$348424 $$705524 $$927584 $$827283 $$822193 $$338121 $$028191 $$790992 $$612437 $$656992 $$933408 $$269245 $$778955 $$407748 $$462501 $$456119 $$377285 $$626720 $$223610 $$091814 $$138274 $$824647 ^^069196 $$883999 $$422584 $$229505 -- Continued on next page -- Patient: DENISHA Gutierrez Order: [id number] Page 2 Culture: CULTURE URINE Status: Final $$[id number] $$[id number] REPORTED DATE/TIME: 10/03/2020 12:06 Culture: CULTURE URINE [...] coli Flag: A Patient: DENISHA Gutierrez Order: [id number] Page 3 Culture: CULTURE URINE Status: Final [...] S S . . . . . .51349-3 Gentamicin S S . . . . . .267-5 Imipenem S S . . . . . .279-0 Levofloxacin S S . . . . . .16818-3 Meropenem S S . . . . . .6652-2 Nitrofurantoin S S . . . . . .363-2 Piperacillin/Tazobactam S S . . . . . .412-7 Tetracycline S S . . . . . .496-0 Tobramycin S S . . . . . .508-2 Trimethoprim/Sulfa S S . . . . . .516-5 P1 Test performed by: [facility] Horace VILLEGAS #: [id number] [address] [place] [address] [id number] [place] [address] Associate Programmer : Jasiel Pedraza MD NPI #: Panel Machine Tender : 10/03/20.1241.XMT.SENT REF 4 COMPREHENSIVE METABOLIC PANE [...] for Troponin T. 10 [place] [address] CLIA# [id number] SEE SCANNED REPORT 11 \\BLDo\\INR INTERPRETATION\\BLD x\\ Therapeutic range for Coumadin and related oral anticoagulants. -International Normalized Ratio (INR): 2 .0 - 3.0 for Venous Thrombosis, Pulmonary Embolus, Tissue heart valves, Acute CT, Atrial Fibrillation, Valvular heart disease and recurrent [...] Thrombosis, Pulmonary Embolus, Tissue heart valves, Acute CT Atrial Fibrillation, Valvular heart disease and recurrent Systemic Embolism. -International Normalized Ratio (INR): 2 .5 - 3.5 for Mechanical Prosthetic valve. 18 {SPECIMEN SOURCE : R CHEST ABCESS 19 _CULTURE WOUND_ ^^368453 ^$036144 $$185012 ^^427743 $$141245 $$026144 $$876890 $$627750 $$703493 REPORTED DATE/TIME: 07/21/2020 12:05 Culture: CULTURE WOUND [...] next page -- Patient: DENISHA Gutierrez Order: [id number] Page 2 Culture: CULTURE WOUND Status: Final Beta hemolytic Streptococcus, group A Previous result entered on 07/19/2020 05:40 ET Beta hemolytic Streptococcus, group A Beta hemolytic Streptococcus, group A Flag: A P1 Test performed by: Felicia Horace VILLEGAS #: [id number] [address] [place] [id number] [facility] [address] Associate Programmer : Jasiel Pedraza MD NPI #: Panel Machine Tender : 07/19/20.0829.XMT.SENT REF 07/20/20.230.XMT.SENT REF 07/21/20.2243.XMT.SENT REF 07/21/20.2243.DW .to [facility] via fax 20 FASTING 8 HOUR~.~.~<DG1.3.1>R10.84</DG1.3.1><DG1.3.1>R10.84</DG1.3.1><DG1.3.1>R10.84</DG1. 3.1><DG [...] ng/ml Procedures Date Code Description Status 07/17/2020 29983 I & D Abscess Simple Completed Medical Devices Description No Information Available Encounters Description No Information Available Assessments Date Code Description Provider 11/11/2020 K85.90 Acute pancreatitis without necro sis or infection, unspecified Lisa Bell PA-C 11/11/2020 E83.119 Hemochromatosis, unspecified Kia Bell PA-C 11/11/2020 C85.90 Non-Hodgkin lymphoma, unspecifie d, [...] Bell PA-C 07/25/2020 E83.119 Hemochromatosis, unspecified Kia Bell PA-C 07/17/2020 L02.213 Cutaneous abscess of chest [...] site Lisa Bell PA-C Plan of Treatment Future Appointment(s):* 12/12/2020 8:20 am - Lisa Bell PA-C at [facility] 11/11/2020 - Lisa Bell PA-C* K85.90 Acute pancreatitis without necrosis or infection, unspecified* Comments:* He has repeat biopsy scheduled on 11/15/2020. Following with pain management and [facility]. He is going to call Pain Management for medication adjustment. 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 He is going to start phlebotomy for hemochromatosis * C85.90 Non-Hodgkin lymphoma, unspecified, unspecified site* Comments:* Following with [facility]. Recent note was ernajma. * E11.9 Type 2 diabetes mellitus without complications* Comments:* He brought his BS log to the office for review. Couple readings are in 300s and some in 200s. Will increase Basaglar to 14 units. Continue with other medications. Continue to follow a diabetic diet like low carb intake/sugar intake/avoiding snacking in the night time or after dinner and a regular exercise regimen. Advised to continue checking BS at home, fasting and 2 hr PP before and after insulin. * Follow up:* 1 month Functional Status Description No Information Available Mental Status Description No Information Available Referrals Refer to Reason for Referral Status Appt Date [facility] 50-year-old male with subcut aneous abscess on the right infra-axillary area with 1 small opening that was draining purulent material. There is an area of 6 x 3 cm induration which was erythematous and tender. Please evaluate and treat. Thank you. Closed [address] [place], [place] [id number] [phone] Raad Rico MD 50 year old male with his tory of GRIGGS and recently discovered liver cirrhosis after CT was ordered due to abdominal pain. Please evaluate and treat. Thank you. Patient Notified 08/29/2020 [address] [place] [address] [phone] [facility] 50 year old male with hi story of Non-Hodgkin's Lymphoma. Patient states that he has been cancer free for 4 years. He states he was previously seen by [facility] but has not been seen in quite a while and would like to reestablish. He also has leukopenia and low platelet count. He was recently discovered to have liver cirrhosis which is currently being worked up. Please evaluate and treat. Thank you. Closed 07/24/2020 [address] [place] [address] [phone]
--- OUTSIDE RECORDS SUMMARY | 2021-01-03 16:15 | CCD ---
Author Author [facility] Organization [facility] Address Unknown Phone Unavailable Care Team Providers Care Customer Service Agent Name Role Phone Clifford PHILIPPE MD Unavailable Unavailable Clifford PHILIPPE MD Unavailable Unavailable Clifford PHILIPPE MD Unavailable Unavailable Clifford PHILIPPE MD Unavailable Unavailable Clifford PHILIPPE MD Unavailable Unavailable Clifford PHILIPPE MD Unavailable Unavailable Clifford PHILIPPE MD Unavailable Unavailable Clifford PHILIPPE MD Unavailable Unavailable Clifford PHILIPPE MD Unavailable Unavailable Clifford PHILIPPE MD Unavailable Unavailable Clifford PHILIPPE MD Unavailable Unavailable Clifford PHILIPPE MD Unavailable Unavailable Clifford PHILIPPE MD Unavailable Unavailable [facility] Unavailable Unavailable Basilio HOBBS MD Unavailable Unavailable Basilio HOBBS MD Unavailable Unavailable Basilio HOBBS MD Unavailable Unavailable Basilio HOBBS MD Unavailable Unavailable Basilio HOBBS MD Unavailable Unavailable Basilio HOBBS MD Unavailable Unavailable Basilio HOBBS MD Unavailable Unavailable Basilio HOBBS MD Unavailable Unavailable Bsailio HOBBS MD Unavailable Unavailable Basilio HOBBS MD Unavailable Unavailable Basilio HOBBS MD Unavailable Unavailable Basilio HOBBS MD Unavailable Unavailable Basilio HOBBS MD Unavailable Unavailable Basilio HOBBS MD Unavailable Unavailable Basilio HOBBS MD Unavailable Unavailable Basilio HOBBS MD Unavailable Unavailable ARNOLD, P TIFFANIE MD Unavailable Unavailable ARNOLD, P TIFFANIE MD Unavailable Unavailable ARNOLD, P TIFFANIE MD Unavailable Unavailable ARNOLD, P TIFFANIE MD Unavailable Unavailable ARNOLD, P TIFFANIE MD Unavailable Unavailable ARNOLD, P TIFFANIE MD Unavailable Unavailable ARNOLD, P TIFFANIE MD Unavailable Unavailable ARNOLD, P TIFFANIE MD Unavailable Unavailable ARNOLD, P TIFFANIE MD Unavailable Unavailable ARNOLD, P TIFFANIE MD Unavailable Unavailable ARNOLD, P TIFFANIE MD Unavailable Unavailable ARNOLD, P TIFFANIE MD Unavailable Unavailable ARNOLD, P TIFFANIE MD Unavailable Unavailable ARNOLD, P TIFFANIE MD Unavailable Unavailable ARNOLD, P TIFFANIE MD Unavailable Unavailable ARNOLD, P TIFFANIE MD Unavailable Unavailable ARNOLD, P TIFFANIE MD Unavailable Unavailable ARNOLD, P TIFFANIE MD Unavailable Unavailable BUMBANAC, A STAR OPERATIONS PLANNER Unavailable Unavailable BUMBANAC, A STAR OPERATIONS PLANNER Unavailable Unavailable BUMBANAC, A STAR OPERATIONS PLANNER Unavailable Unavailable BUMBANAC, A STAR OPERATIONS PLANNER Unavailable Unavailable BUMBANAC, A STAR OPERATIONS PLANNER Unavailable Unavailable BUMBANAC, A STAR OPERATIONS PLANNER Unavailable Unavailable BUMBANAC, A STAR OPERATIONS PLANNER Unavailable Unavailable BUMBANAC, A STAR OPERATIONS PLANNER Unavailable Unavailable BUMBANAC, A STAR OPERATIONS PLANNER Unavailable Unavailable BUMBANAC, A STAR OPERATIONS PLANNER Unavailable Unavailable BUMBANAC, A STAR OPERATIONS PLANNER Unavailable Unavailable BUMBANAC, A STAR OPERATIONS PLANNER Unavailable Unavailable BUMBANAC, A STAR OPERATIONS PLANNER Unavailable Unavailable BUMBANAC, A STAR OPERATIONS PLANNER Unavailable Unavailable BUMBANAC, A STAR OPERATIONS PLANNER Unavailable Unavailable BUMBANAC, A STAR OPERATIONS PLANNER Unavailable Unavailable BUMBANAC, A STAR OPERATIONS PLANNER Unavailable Unavailable BUMBANAC, A STAR OPERATIONS PLANNER Unavailable Unavailable BUMBANAC, A STAR OPERATIONS PLANNER Unavailable Unavailable BUMBANAC, A STAR OPERATIONS PLANNER Unavailable Unavailable BUMBANAC, A STAR OPERATIONS PLANNER Unavailable Unavailable BUMBANAC, A STAR OPERATIONS PLANNER Unavailable Unavailable BUMBANAC, A STAR OPERATIONS PLANNER Unavailable Unavailable BUMBANAC, A STAR OPERATIONS PLANNER Unavailable Unavailable BUMBANAC, A STAR OPERATIONS PLANNER Unavailable Unavailable BUMBANAC, A STAR OPERATIONS PLANNER Unavailable Unavailable BUMBANAC, A STAR OPERATIONS PLANNER Unavailable Unavailable BUMBANAC, A STAR OPERATIONS PLANNER Unavailable Unavailable ARNOLD, P TIFFANIE MD Unavailable Unavailable ARNOLD, P TIFFANIE MD Unavailable Unavailable ARNOLD, P TIFFANIE MD Unavailable Unavailable ARNOLD, P TIFFANIE MD Unavailable Unavailable ARNOLD, P TIFFANIE MD Unavailable Unavailable ARNOLD, P TIFFANIE MD Unavailable Unavailable ARNOLD, P TIFFANIE MD Unavailable Unavailable ARNOLD, P TIFFANIE MD Unavailable Unavailable ARNOLD, P TIFFANIE MD Unavailable Unavailable ARNOLD, P TIFFANIE MD Unavailable Unavailable ARNOLD, P TIFFANIE MD Unavailable Unavailable ARNOLD, P TIFFANIE MD Unavailable Unavailable ARNOLD, P TIFFANIE MD Unavailable Unavailable ARNOLD, P TIFFANIE MD Unavailable Unavailable ARNOLD, P TIFFANIE MD Unavailable Unavailable ARNOLD, P TIFFANIE MD Unavailable Unavailable ARNOLD, P TIFFANIE MD Unavailable Unavailable ARNOLD, P TIFFANIE MD Unavailable Unavailable ARNOLD, P TIFFANIE MD Unavailable Unavailable ARNOLD, P TIFFANIE MD Unavailable Unavailable ARNOLD, P TIFFANIE MD Unavailable Unavailable ARNOLD, P TIFFANIE MD Unavailable Unavailable ARNOLD, P TIFFANIE MD Unavailable Unavailable ARNOLD, P TIFFANIE MD Unavailable Unavailable ARNOLD, P TIFFANIE MD Unavailable Unavailable ARNOLD, P TIFFANIE MD Unavailable Unavailable ARNOLD, P TIFFANIE MD Unavailable Unavailable ARNOLD, P TIFFANIE MD Unavailable Unavailable ARNOLD, P TIFFANIE MD Unavailable Unavailable ARNOLD, P TIFFANIE MD Unavailable Unavailable ARNOLD, P TIFFANIE MD Unavailable Unavailable ARNOLD, P TFIFANIE MD Unavailable Unavailable ARNOLD, P TIFFANIE MD Unavailable Unavailable ARNOLD, P TIFFANIE MD Unavailable Unavailable Lashawn COOMBS Unavailable Unavailable REINDL, JOSÉ SALCEDO Unavailable Unavailable REINDL, JOSÉ SALCEDO Unavailable Unavailable REINDL, JOSÉ SALCEDO Unavailable Unavailable REINDL, JOSÉ SALCEDO Unavailable Unavailable REINDL, JOSÉ SALCEDO Unavailable Unavailable REINDL, JOSÉ SALCEDO Unavailable Unavailable REINDL, JOSÉ SALCEDO Unavailable Unavailable REINDL, JOSÉ SALCEDO Unavailable Unavailable REINDL, JOSÉ SALCEDO Unavailable Unavailable REINDL, JOSÉ SALCEDO Unavailable Unavailable REINDL, JOSÉ SALCEDO Unavailable Unavailable REINDL, JOSÉ SALCEDO Unavailable Unavailable REINDL, JOSÉ SALCEDO Unavailable Unavailable REINDL, JOSÉ SALCEDO Unavailable Unavailable REINDL, JOSÉ SALCEDO Unavailable Unavailable REINDL, JOSÉ SALCEDO Unavailable Unavailable REINDL, JOSÉ SALCEDO Unavailable Unavailable REINDL, JOSÉ SALCEDO Unavailable Unavailable REINDL, JOSÉ SALCEDO Unavailable Unavailable REINDL, JOSÉ SALCEDO Unavailable Unavailable REINDL, JOSÉ SALCEDO Unavailable Unavailable REINDL, JOSÉ SALCEDO Unavailable Unavailable REINDL, JOSÉ SALCEDO Unavailable Unavailable REINDL, JOSÉ SALCEDO Unavailable Unavailable REINDL, JOSÉ SALCEDO Unavailable Unavailable REINDL, JOSÉ SALCEDO Unavailable Unavailable REINDL, JOSÉ SALCEDO Unavailable Unavailable REINDL, JOSÉ SALCEDO Unavailable Unavailable REINDL, JOSÉ SALCEDO Unavailable Unavailable REINDL, JOSÉ SALCEDO Unavailable Unavailable REINDL, JOSÉ SALCEDO Unavailable Unavailable REINDL, JOSÉ SALCEDO Unavailable Unavailable REINDL, JOSÉ SALCEOD Unavailable Unavailable REINDL, JOSÉ SALCEDO Unavailable Unavailable REINDL, JOSÉ SALCEDO Unavailable Unavailable REINDL, JOSÉ SALCEDO Unavailable Unavailable REINDL, JOSÉ SALCEDO Unavailable Unavailable REINDL, JOSÉ SALCEDO Unavailable Unavailable REINDL, JOSÉ SALCEDO Unavailable Unavailable REINDL, JOSÉ SALCEDO Unavailable Unavailable REINDL, JOSÉ SALCEDO Unavailable Unavailable REINDL, JOSÉ SALCEDO Unavailable Unavailable REINDL, JOSÉ SALCEDO Unavailable Unavailable REINDL, JOSÉ SALCEDO Unavailable Unavailable Kunnumpurath, F Shelli MD Unavailable Unavailable Kunnumpurath, F Shelli MD Unavailable Unavailable Kunnumpurath, F Shelli MD Unavailable Unavailable Kunnumpurath, F Shelli MD Unavailable Unavailable Kunnumpurath, F Shelli MD Unavailable Unavailable Kunnumpurath, F Shelli MD Unavailable Unavailable [place]unnumpurath, F Shelli MD Unavailable Unavailable [place]unnumpurath, F Shelli MD Unavailable Unavailable [place]unnump[place]ath, F Shelli MD Unavailable Unavailable [place]ump[place]ath, F Shelli MD Unavailable Unavailable Kunnumpurath, F Shelli MD Unavailable Unavailable Kunnumpurath, F Shelli MD Unavailable Unavailable Kunnumpurath, F Shelli MD Unavailable Unavailable Kunnumpurath, F Shelli MD Unavailable Unavailable Kunnumpurath, F Shelli MD Unavailable Unavailable Kunnumpurath, F Shelli MD Unavailable Unavailable Kunnumpurath, F Shelli MD Unavailable Unavailable Kunnumpurath, F Shelli MD Unavailable Unavailable Kunnumpurath, F Shelli MD Unavailable Unavailable Kunnumpurath, F Shelli MD Unavailable Unavailable Kunnumpurath, F Shelli MD Unavailable Unavailable Kunnumpurath, F Shelli MD Unavailable Unavailable Kunnumpurath, F Shelli MD Unavailable Unavailable Kunnumpurath, F Shelli MD Unavailable Unavailable Kunnumpurath, F Shelli MD Unavailable Unavailable Kunnumpurath, F Shelli MD Unavailable Unavailable Kunnumpurath, F Shelli MD Unavailable Unavailable Kunnumpurath, F Shelli MD Unavailable Unavailable Kunnumpurath, F Shelli MD Unavailable Unavailable Kunnumpurath, F Shelli MD Unavailable Unavailable Kunnumpurath, F Shelli MD Unavailable Unavailable Kunnumpurath, F Shelli MD Unavailable Unavailable Kunnumpurath, F Shelli MD Unavailable Unavailable Kunnumpurath, F Shelli MD Unavailable Unavailable Kunnumpurath, F Shelli MD Unavailable Unavailable Kunnumpurath, F Shelli MD Unavailable Unavailable Kunnumpurath, F Shelli MD Unavailable Unavailable Kunnumpurath, F Shelli MD Unavailable Unavailable Aundrea Mcmullen MD Unavailable Unavailable Clifford PHILIPPE MD Unavailable Unavailable Clifford PHILIPPE MD Unavailable Unavailable Clifford PHILIPPE MD Unavailable Unavailable ZClifford PAIZ MD Unavailable Unavailable ZClifford PAIZ MD Unavailable Unavailable ZClifford PAIZ MD Unavailable Unavailable Clifford PHILIPPE MD Unavailable Unavailable Clifford PHILIPPE MD Unavailable Unavailable Clifford PHILIPPE MD Unavailable Unavailable Clifford PHILIPPE MD Unavailable Unavailable Clifford PHILIPPE MD Unavailable Unavailable ZULICKClifford MD Unavailable Unavailable Clifford PHILIPPE MD Unavailable Unavailable Matt GREENE Unavailable Unavailable Haydee, Masmanjula SALCEDO Unavailable Unavailable Haydee, Masmanjula SALCEDO Unavailable Unavailable Haydee, Masmanjula SALCEDO Unavailable Unavailable Haydee, Masmanjula SALCEDO Unavailable Unavailable Haydee, Mashashanon MD Unavailable Unavailable Haydee, Mashashanon MD Unavailable Unavailable Haydee, Mashashanon MD Unavailable Unavailable Haydee, Masmanjula SALCEDO Unavailable Unavailable Haydee, Masmanjula SALCEDO Unavailable Unavailable Haydee, Masmanjula SALCEDO Unavailable Unavailable Haydee, Masmanjula SALCEDO Unavailable Unavailable Haydee, Masmanjula SALCEDO Unavailable Unavailable Haydee, Mashashanon MD Unavailable Unavailable Haydee, Mashashanon MD Unavailable Unavailable Haydee, Mashashanon SALCEDO Unavailable Unavailable Haydee, Mashashanon SALCEDO Unavailable Unavailable Haydee, Masmanjula SLACEDO Unavailable Unavailable Haydee, Mashashanon SALCEDO Unavailable Unavailable Haydee, Mashashanon SALCEDO Unavailable Unavailable Haydee, Mashashanon MD Unavailable Unavailable Haydee, Mashashanon SALCEDO Unavailable Unavailable Haydee, Mashashanon SALCEDO Unavailable Unavailable Haydee, Mashashanon SALCEDO Unavailable Unavailable Haydee, Mashashanon SALCEDO Unavailable Unavailable Haydee, Mashashanon SALCEDO Unavailable Unavailable Haydee, Mashashanon SALCEDO Unavailable Unavailable Haydee, Mashashanon MD Unavailable Unavailable Haydee, Mashashanon MD Unavailable Unavailable Haydee, Mashashanon SALCEDO Unavailable Unavailable Haydee, Mashashanon SALCEDO Unavailable Unavailable Haydee, Mashashanon SALCEDO Unavailable Unavailable Haydee, Mashashanon SALCEDO Unavailable Unavailable Haydee, Mashashanon MD Unavailable Unavailable Haydee, Mashashanon MD Unavailable Unavailable Haydee, Mashashanon MD Unavailable Unavailable Haydee, Mashashanon SALCEDO Unavailable Unavailable Haydee, Mashashanon SALCEDO Unavailable Unavailable Haydee, Mashashanon MD Unavailable Unavailable Haydee, Mashashanon MD Unavailable Unavailable Haydee, Sandra SALCEDO Unavailable Unavailable Haydee, Sandra SALCEDO Unavailable Unavailable Haydee, Sandra SALCEDO Unavailable Unavailable Haydee, Sandra SALCEDO Unavailable Unavailable Haydee, Sandra SALCEDO Unavailable Unavailable Haydee, Sandra SALCEDO Unavailable Unavailable Haydee, Sandra SALCEDO Unavailable Unavailable Haydee, Sandra SALCEDO Unavailable Unavailable Haydee, Sandra SALCEDO Unavailable Unavailable Haydee, Sandra SALCEDO Unavailable Unavailable Haydee, Sandra SALCEDO Unavailable Unavailable Haydee, Sandra SALCEDO Unavailable Unavailable Haydee, Sandra SALCEDO Unavailable Unavailable Haydee, Sandra SALCEDO Unavailable Unavailable Haydee, Sandra SALCEDO Unavailable Unavailable Haydee, Sandra SALCEDO Unavailable Unavailable Haydee, Sandra SALCEDO Unavailable Unavailable Verdugo, M Lisa PA-C Unavailable Unavailable Verdugo, M Lisa PA-C Unavailable Unavailable Verdugo, M Lisa PA-C Unavailable Unavailable Verdugo, M Lisa PA-C Unavailable Unavailable Verdugo, M Lisa PA-C Unavailable Unavailable Verdugo, M Lisa PA-C Unavailable Unavailable Verdugo, M Lisa PA-C Unavailable Unavailable Verdugo, M Lisa PA-C Unavailable Unavailable Verdugo, M Lisa PA-C Unavailable Unavailable Verdugo, M Lisa PA-C Unavailable Unavailable Verdugo, M Lisa PA-C Unavailable Unavailable Verdugo, M Lisa PA-C Unavailable Unavailable Verdugo, M Lisa PA-C Unavailable Unavailable Verdugo, M Lisa PA-C Unavailable Unavailable Verdugo, M Lisa PA-C Unavailable Unavailable Verdugo, M Lisa PA-C Unavailable Unavailable Verdugo, M Lisa PA-C Unavailable Unavailable Verdugo, M Lisa PA-C Unavailable Unavailable Verdugo, M Lisa PA-C Unavailable Unavailable Verdugo, M Lisa PA-C Unavailable Unavailable Verdugo, M Lisa PA-C Unavailable Unavailable Verdugo, M Lisa PA-C Unavailable Unavailable Verdugo, M Lisa PA-C Unavailable Unavailable Verdugo, M Lisa PA-C Unavailable Unavailable Verdugo, M Lisa PA-C Unavailable Unavailable Verdugo, M Lisa PA-C Unavailable Unavailable Verdugo, M Lisa PA-C Unavailable Unavailable Verdugo, M Lisa PA-C Unavailable Unavailable Verdugo, M Lisa PA-C Unavailable Unavailable Verdugo, M Lisa PA-C Unavailable Unavailable Verdugo, M Lisa PA-C Unavailable Unavailable Verdugo, M Lisa PA-C Unavailable Unavailable Verdugo, M Lisa PA-C Unavailable Unavailable Audrey, G Karon Unavailable Unavailable CLARK, ROBBY MD Unavailable Unavailable CLARK, ROBBY MD Unavailable Unavailable CLARK, ROBBY MD Unavailable Unavailable CLARK, ROBBY MD Unavailable Unavailable CLARK, ROBBY MD Unavailable Unavailable CLARK, ROBBY MD Unavailable Unavailable CLARK, ROBBY MD Unavailable Unavailable CLARK, ROBBY MD Unavailable Unavailable CLARK, ROBBY MD Unavailable Unavailable CLARK, ROBBY MD Unavailable Unavailable CLARK, ROBBY MD Unavailable Unavailable CLARK, ROBBY MD Unavailable Unavailable CLARK, ROBBY MD Unavailable Unavailable CLARK, ROBBY MD Unavailable Unavailable CLARK, ROBBY MD Unavailable Unavailable CLARK, ROBBY MD Unavailable Unavailable CLARK, ROBBY MD Unavailable Unavailable CLARK, ROBBY MD Unavailable Unavailable CLARK, ROBBY MD Unavailable Unavailable CLARK, ORBBY MD Unavailable Unavailable CLARK, ROBBY MD Unavailable Unavailable CLARK, ROBBY MD Unavailable Unavailable CLARK, ROBBY MD Unavailable Unavailable CLARK, ROBBY MD Unavailable Unavailable CLARK, ROBBY MD Unavailable Unavailable CLARK, ROBBY MD Unavailable Unavailable CLARK, ROBBY MD Unavailable Unavailable CLARK, ROBBY MD Unavailable Unavailable CLARK, ROBBY MD Unavailable Unavailable CLARK, ROBBY MD Unavailable Unavailable CLARK, ROBBY MD Unavailable Unavailable CLARK, ROBBY MD Unavailable Unavailable CLARK, ROBBY MD Unavailable Unavailable CLARK, ROBBY MD Unavailable Unavailable CLARK, ROBBY MD Unavailable Unavailable CLARK, ROBBY MD Unavailable Unavailable CLARK, ROBBY MD Unavailable Unavailable CLARK, ROBBY MD Unavailable Unavailable CLARK, ROBBY MD Unavailable Unavailable CLARK, ROBBY MD Unavailable Unavailable CLARK, ROBBY MD Unavailable Unavailable CLARK, ROBBY MD Unavailable Unavailable CLARK, ROBBY MD Unavailable Unavailable CLARK, ROBBY MD Unavailable Unavailable CLARK, ROBBY MD Unavailable Unavailable CLARK, ROBBY MD Unavailable Unavailable CLARK, ROBBY MD Unavailable Unavailable CLARK, ROBBY MD Unavailable Unavailable CLARK, ROBBY MD Unavailable Unavailable CLARK, ROBBY MD Unavailable Unavailable CLARK, ROBBY MD Unavailable Unavailable CLARK, ROBBY MD Unavailable Unavailable CLARK, ROBBY MD Unavailable Unavailable CLARK, ROBBY MD Unavailable Unavailable CLARK, ROBBY MD Unavailable Unavailable CLARK, ROBBY MD Unavailable Unavailable CLARK, ROBBY MD Unavailable Unavailable CLARK, ROBBY MD Unavailable Unavailable CLARK, ROBBY MD Unavailable Unavailable CLARK, ROBBY MD Unavailable Unavailable ROBBY CLARK MD Unavailable Unavailable ROBBY CLARK MD Unavailable Unavailable ROBBY CLARK MD Unavailable Unavailable ROBBY CLARK MD Unavailable Unavailable ROBBY CLARK MD Unavailable Unavailable ROBBY CLARK MD Unavailable Unavailable ROBBY CLARK MD Unavailable Unavailable ROBBY CLARK MD Unavailable Unavailable ROBBY CLARK MD Unavailable Unavailable Verdugo, M Lisa PA-C Unavailable Unavailable Verdugo, M Lisa PA-C Unavailable Unavailable Verdugo, M Lisa PA-C Unavailable Unavailable Verdugo, M Lisa PA-C Unavailable Unavailable Verdugo, M Lisa PA-C Unavailable Unavailable Verdugo, M Lisa PA-C Unavailable Unavailable Verdugo, M Lisa PA-C Unavailable Unavailable Verdugo, M Lisa PA-C Unavailable Unavailable Verdugo, M Lisa PA-C Unavailable Unavailable Verdugo, M Lisa PA-C Unavailable Unavailable Verdugo, M Lisa PA-C Unavailable Unavailable Verdugo, M Lisa PA-C Unavailable Unavailable Verdugo, M Lisa PA-C Unavailable Unavailable Verdugo, M Lisa PA-C Unavailable Unavailable Verdugo, M Lisa PA-C Unavailable Unavailable Verdugo, M Lisa PA-C Unavailable Unavailable Verdugo, M Lisa PA-C Unavailable Unavailable Verdugo, M Lisa PA-C Unavailable Unavailable Verdugo, M Lisa PA-C Unavailable Unavailable Verdugo, M Lisa PA-C Unavailable Unavailable Verdugo, M Lisa PA-C Unavailable Unavailable Verdugo, M Lisa PA-C Unavailable Unavailable Verdugo, M Lisa PA-C Unavailable Unavailable Verdugo, M Lisa PA-C Unavailable Unavailable Verdugo, M Lisa PA-C Unavailable Unavailable Verdugo, M Lias PA-C Unavailable Unavailable Verdugo, M Lisa PA-C Unavailable Unavailable Verdugo, M Lisa PA-C Unavailable Unavailable Verdugo, M Lisa PA-C Unavailable Unavailable Verdugo, M Lisa PA-C Unavailable Unavailable Verdugo, M Lisa PA-C Unavailable Unavailable Verdugo, M Lisa PA-C Unavailable Unavailable Verdugo, M Lisa PA-C Unavailable Unavailable Sun, Ted DO Unavailable Unavailable Sun, Ted DO Unavailable Unavailable Sun, Ted DO Unavailable Unavailable Sun, Ted DO Unavailable Unavailable Sun, Ted DO Unavailable Unavailable Sun, Ted DO Unavailable Unavailable Sun, Ted DO Unavailable Unavailable Sun, Ted DO Unavailable Unavailable Sun, Ted DO Unavailable Unavailable Sun, Ted DO Unavailable Unavailable Sun, Ted DO Unavailable Unavailable Sun, Ted DO Unavailable Unavailable Sun, Ted DO Unavailable Unavailable Sun, Ted DO Unavailable Unavailable Sun, Ted DO Unavailable Unavailable Sun, Ted DO Unavailable Unavailable Sun, Ted DO Unavailable Unavailable Sun, Ted DO Unavailable Unavailable Sun, Ted DO Unavailable Unavailable Sun, Ted DO Unavailable Unavailable Sun, Ted DO Unavailable Unavailable Sun, Ted DO Unavailable Unavailable Sun, Ted DO Unavailable Unavailable Sun, Ted DO Unavailable Unavailable Sun, Ted DO Unavailable Unavailable Sun, Ted DO Unavailable Unavailable Sun, Ted DO Unavailable Unavailable Sun, Ted DO Unavailable Unavailable Sun, Ted DO Unavailable Unavailable Sun, Ted DO Unavailable Unavailable Sun, Ted DO Unavailable Unavailable Sun, Ted DO Unavailable Unavailable Sun, Ted DO Unavailable Unavailable Sun, Ted DO Unavailable Unavailable Sun, Ted DO Unavailable Unavailable Sun, Ted DO Unavailable Unavailable Sun, Ted DO Unavailable Unavailable Sun, Ted DO Unavailable Unavailable Sun, Ted DO Unavailable Unavailable Sun, Ted DO Unavailable Unavailable Sun, Ted DO Unavailable Unavailable Sun, Ted DO Unavailable Unavailable Sun, Ted DO Unavailable Unavailable Sun, Ted DO Unavailable Unavailable Sun, Ted DO Unavailable Unavailable Sun, Tde DO Unavailable Unavailable Sun, Ted DO Unavailable Unavailable Sun, Ted DO Unavailable Unavailable Sun, Ted DO Unavailable Unavailable Sun, Ted DO Unavailable Unavailable Sun, Ted DO Unavailable Unavailable Sun, Ted DO Unavailable Unavailable Sun, Ted DO Unavailable Unavailable Sun, Ted DO Unavailable Unavailable Sun, Ted DO Unavailable Unavailable Sun, Ted DO Unavailable Unavailable Sun, Ted DO Unavailable Unavailable Sun, Ted DO Unavailable Unavailable Sun, Ted DO Unavailable Unavailable Sun, Ted DO Unavailable Unavailable Sun, Ted DO Unavailable Unavailable Sun, Ted DO Unavailable Unavailable Sun, Ted DO Unavailable Unavailable Sun, Ted DO Unavailable Unavailable ROBBY CLARK MD Unavailable Unavailable ROBBY CLARK MD Unavailable Unavailable ROBBY CLARK MD Unavailable Unavailable ROBBY CLARK MD Unavailable Unavailable ORBBY CLARK MD Unavailable Unavailable ROBBY CLARK MD Unavailable Unavailable ROBBY CLARK MD Unavailable Unavailable ROBBY CLARK MD Unavailable Unavailable ROBBY CLARK MD Unavailable Unavailable ROBBY CLARK MD Unavailable Unavailable ROBBY CLARK MD Unavailable Unavailable ROBBY CLARK MD Unavailable Unavailable ROBBY CLARK MD Unavailable Unavailable ROBBY CLARK MD Unavailable Unavailable ROBBY CLARK MD Unavailable Unavailable ROBBY CLARK MD Unavailable Unavailable ROBBY CLARK MD Unavailable Unavailable ROBBY CLARK MD Unavailable Unavailable ROBBY CLARK MD Unavailable Unavailable ROBBY CLARK MD Unavailable Unavailable ROBBY CLARK MD Unavailable Unavailable CLARK, ROBBY MD Unavailable Unavailable CLARK, ROBBY MD Unavailable Unavailable CLARK, ROBBY MD Unavailable Unavailable CLARK, ROBBY MD Unavailable Unavailable CLARK, ROBBY MD Unavailable Unavailable CLARK, ROBBY MD Unavailable Unavailable CLARK, ROBBY MD Unavailable Unavailable CLARK, ROBBY MD Unavailable Unavailable CLARK, ROBBY MD Unavailable Unavailable CLARK, ROBBY MD Unavailable Unavailable CLARK, ROBBY MD Unavailable Unavailable CLARK, ROBBY MD Unavailable Unavailable CLARK, ROBBY MD Unavailable Unavailable CLARK, ROBBY MD Unavailable Unavailable CLARK, ROBBY MD Unavailable Unavailable CLARK, ROBBY MD Unavailable Unavailable CLARK, ROBBY MD Unavailable Unavailable CLARK, ROBBY MD Unavailable Unavailable CLARK, ROBBY MD Unavailable Unavailable CLARK, ROBBY MD Unavailable Unavailable CLARK, ROBBY MD Unavailable Unavailable CLARK, ROBBY MD Unavailable Unavailable CLARK, ROBBY MD Unavailable Unavailable CLARK, ROBBY MD Unavailable Unavailable CLARK, ROBBY MD Unavailable Unavailable CLARK, ROBBY MD Unavailable Unavailable CLARK, ROBBY MD Unavailable Unavailable CLARK, ROBBY MD Unavailable Unavailable CLARK, ROBBY MD Unavailable Unavailable CLARK, ROBBY MD Unavailable Unavailable CLARK, ROBBY MD Unavailable Unavailable CLARK, ROBBY MD Unavailable Unavailable CLARK, ROBBY MD Unavailable Unavailable CLARK, ROBBY MD Unavailable Unavailable CLARK, ROBBY MD Unavailable Unavailable CLARK, ROBBY MD Unavailable Unavailable CLARK, ROBBY MD Unavailable Unavailable CLARK, ROBBY MD Unavailable Unavailable CLARK, ROBBY MD Unavailable Unavailable CLARK, ROBBY MD Unavailable Unavailable CLARK, ROBBY MD Unavailable Unavailable CLARK, ROBBY MD Unavailable Unavailable CLARK, ROBBY MD Unavailable Unavailable CLARK ROBBY MD Unavailable Unavailable CLARK, ROBBY MD Unavailable Unavailable CLARK, ROBBY MD Unavailable Unavailable CLARK, ROBBY MD Unavailable Unavailable CLARK, ROBBY MD Unavailable Unavailable Aby SCHAEFER MD Unavailable Unavailable Aby SCHAEFER MD Unavailable Unavailable Aby SCHAEFER MD Unavailable Unavailable Aby SCHAEFER MD Unavailable Unavailable Aby SCHAEFER MD Unavailable Unavailable Aby SCHAEFER MD Unavailable Unavailable Aby SCHAEFER MD Unavailable Unavailable Aby SCHAEFER MD Unavailable Unavailable Aby SCHAEFER MD Unavailable Unavailable Colt, J Constance Unavailable Unavailable Colt, J Constance Unavailable Unavailable Colt, J Constance Unavailable Unavailable Colt, J Constance Unavailable Unavailable Colt, J Constance Unavailable Unavailable Colt, J Constance Unavailable Unavailable Colt, J Constance Unavailable Unavailable Colt, J Constance Unavailable Unavailable Colt, J Constance Unavailable Unavailable Colt, J Constance Unavailable Unavailable Colt, J Constance Unavailable Unavailable Colt, J Constance Unavailable Unavailable Colt, J Constance Unavailable Unavailable Colt, J Constance Unavailable Unavailable Colt, J Constance Unavailable Unavailable Colt, J Constance Unavailable Unavailable Colt, J Constance Unavailable Unavailable Colt, J Constance Unavailable Unavailable Colt, J Constance Unavailable Unavailable Colt, J Constance Unavailable Unavailable Colt, J Constance Unavailable Unavailable Colt, J Constance Unavailable Unavailable Colt, J Constance Unavailable Unavailable Colt, J Constance Unavailable Unavailable Colt, J Constance Unavailable Unavailable Cristiana Fernandes MD Unavailable Unavailable Re-disclosure Warning The records that you are about to access may contain information from federally-assisted alcohol or drug abuse programs. If such information is present, then the following federally mandated warning applies: This information has been disclosed to you from records protected by federal confidentiality rules (42 CFR part 2). The federal rules prohibit you from making any further disclosure of this information unless further disclosure is expressly permitted by the written consent of the person to whom it pertains or as otherwise permitted by 42 CFR part 2. A general authorization for the release of medical or other information is NOT sufficient for this purpose. The Federal rules restrict any use of the information to criminally investigate or prosecute any alcohol or drug abuse patient.The records that you are about to access may contain highly sensitive health information, the redisclosure of which is protected by Article 27-F of the [facility] Public Health law. If you continue you may have access to information: Regarding HIV / AIDS; Provided by facilities licensed or operated by the [facility] Office of Mental Health; or Provided by the [facility] Office for People With Developmental Disabilities. If such information is present, then the following [facility] mandated warning applies: This information has been disclosed to you from confidential records which are protected by state law. State law prohibits you from making any further disclosure of this information without the specific written consent of the person to whom it pertains, or as otherwise permitted by law. Any unauthorized further disclosure in violation of state law may result in a fine or custodial sentence or both. A general authorization for the release of medical or other information is NOT sufficient authorization for further disc losure. Allergies and Adverse Reactions Type Description Substance Reaction Status Data Source(s ) Drug allergy No Known Drug Allergies No Known Drug Allergies [facility] No Known Drug Allergies No Known Drug Allergies [facility] No Known Food Allergies No Known Food Allergies [facility] ENVIRONMENTAL BEES BEES [facility] Drug Class NO KNOWN ALLERGIES NO KNOWN ALLERGIES Family History Family Member Name Family Member Gender Family Member Status Date o f Status Description Data Source(s) Unknown Female Problem [facility] ([facility]) Unknown Unknown Problem [facility] ([facility]) Encounters Encounter Providers Location Date Indications Data Source(s ) Outpatient Attender: Lisa GORDONCConsultant: ROBBY KINGSTON MD 12/12/2020 08:16:00 AM [facility] - 12/12/2020 08:16:00 AM [facility] Outpatient Attender: Sandra UnderwoodA-MLTCACTR 12/11/2020 03:47:06 PM [facility] Outpatient Attender: Sandra Hubbard MD 2020 12:00:00 AM [facility] - 12/12/2020 08:50:02 AM [facility] Outpatient Attender: SANDY Allred-MLTCACTR 12/05/2020 12 :24:33 PM [facility] Outpatient Attender: Lisa GORDONCConsultant: ROBBY KINGSTON MD 12/05/2020 10:09:00 AM [facility] - 12/05/2020 10:09:00 AM [facility] Outpatient Attender: Lisa Verdugo PA-C Family Practice 11/09 09:20:00 AM EST [facility] Outpatient Attender: RENNY STARK NPConsultant: ROBBY CLAROS MD 12/02/2020 05:07:00 PM [facility] - 12/02/2020 05:07:00 PM [facility] Outpatient Attender: Constance Allred-MLTCACTR 11/26/19 12:00:00 AM [facility] - 11/26/2020 03:06:22 PM EST Malignant neoplasm of pancreas, unspecified Malignant neoplasm of pancreas, unspecif ied Outpatient Attender: Sandra Hubbard MDReferrer: TIFFANIE GEORGES MD [id number] 11/18/2020 12:00:00 AM EST - 11/18/2020 09:52:16 AM EST Malignant neoplasm of pancreas, unspecified Malignant neoplasm of pancreas, unspecif ied Outpatient Admitter: Sandra Hubbard MDReferrer: Sandra Hubbard MD 11/15/2020 12:00:00 AM EST Other specified diseases of pancreas [facility] Other specified diseases of pancreas Outpatient Attender: Lisa GORDONCConsultant: ROBBY KINGSTON MD 11/11/2020 08:22:00 AM EST - 11/11/2020 08:22:00 AM EST [facility] Outpatient Referrer: TED COOMBS 10/28/2020 02:44:00 PM EST Other specified diseases of pancreas Other specified diseases of pancreas Outpatient Attender: Ted Montanoer: Ted LAY-M OB.PAT 10/24/2020 07:43:01 AM EST - 10/24/2020 08:59:32 AM EST [facility] Outpatient Referrer: Ted LAY-MOB.PAT 10/24/2020 12:00:00 AM EST - 10/24/2020 11:08:32 AM EST [facility] Outpatient Attender: Ted Coombs DOAdmitter: Ted Montanoer: Ted Coombs DO [id number] 10/22/2020 03:15:59 PM EST - 10/28/2020 10:08:00 AM EST [facility] Patient discharged. Outpatient Attender: JOSÉ Su/Viviana/Delvis/Abdiel mora 10/16/2020 09:15:00 AM EST [facility] ([facility] Outpatient Admitter: Karon Ellingtonerrer: Karon Ventura 10/09/2020 12:00:00 AM EST Other specified diseases of pancreas [facility] Other specified diseases of pancreas Outpatient Attender: Lisa JOSEPH-CConsultant: ROBBY KINGSTON MD 10/08/2020 09:07:00 AM EST - 10/08/2020 09:07:00 AM [facility] Outpatient Attender: [facility] 09/29/2020 10:1 7:00 AM [facility] Emergency Attender: TAIFERNANDA SCHAEFER MDConsultant: ROBBY CLAROS MD 09/29/2020 10:10:00 AM EST - 09/29/2020 02:17:00 PM [facility] Patient discharged. Outpatient Attender: TIFFANIE FABY MDConsultant: ROBBY PLASENCIA MD 08/27/2020 08:24:00 AM EDT - 08/27/2020 09:24:00 AM EDT [facility] Office Visit Attender: AARON PHILIPPE MD Family Practice 2019 09:45:00 AM EDT [facility] ([facility] Outpatient Attender: AARON PHILIPPE MDConsultant: ROBBY Gutierrez MD 08/01/2020 08:44:00 AM EDT - 08/01/2020 08:44:00 AM EDT [facility] Outpatient Attender: Lisa GORDONCConsultant: ROBBY KINGSTON MD 07/25/2020 08:26:00 AM EDT - 07/25/2020 08:26:00 AM EDT [facility] Outpatient Attender: AARON PHILPIPE MDConsultant: ROBBY Gutierrez MD 07/17/2020 08:48:00 AM EDT - 07/17/2020 08:48:00 AM EDT [facility] Outpatient Attender: Shelli Mcmullen MDConsultant: ROBBY CLARK MD 07/17/2020 06:47:00 AM EDT - 07/17/2020 06:47:00 AM EDT [facility] Outpatient Attender: Lisa GORDONCConsultant: ROBBY KINGSTON MD 06/25/2020 07:05:00 AM EDT - 06/25/2020 07:05:00 AM EDT [facility] Outpatient Attender: ROBBY CLARK MD 03/21/2018 09:0 4:00 AM EDT 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 IIV4 07/25/2020 09:50:00 AM EDT completed [facility] ([facility]) Medications Medication Brand Name Start Date Product Form Dose Route Admi nistrative Instructions Pharmacy Instructions Status Indications Reaction Description Data Source(s) 33 gauge 12/31/2020 12:00:00 AM EST misc 100 USE TO TEST FOUR TIMES A DAY USE TO TEST FOUR TIMES A DAY SOLD: 12/31/2020 [facility] 10 mg 12/31/2020 12:00:00 AM EST suppository 12 INSERT ONE SUPPOSITORY RECTALLY EVERY DAY NEEDED FOR CONSTIPATION INSERT ONE SUPPOSITORY RECTALLY EVERY DAY NEEDED FOR CONSTIPATION SOLD: 12/31/2020 [facility] 5 mg 12/31/2020 12:00:00 AM EST tablet,delayed release (DR/EC) 60 TAKE ONE TABLET BY MOUTH TWICE A DAY, MAXIMUM DAILY DOSE = 2 TAKE ONE TABLET BY MOUTH TWICE A DAY, MAXIMUM DAILY DOSE = 2 SOLD: 12/31/2020 [facility] 50 mg 12/30/2020 12:00:00 AM EST tablet 120 TAKE 1-2 TABLETS BY MOUTH EVERY 6 HOURS NEEDED TAKE 1-2 TABLETS BY MOUTH EVERY 6 HOURS NEEDED SOLD : 12/31/2020 [facility] 100 mg/5 mL (20 mg/mL) 12/26/2020 12:00:00 AM EST solution 120 TAKE 0.25- 0.5ML BY MOUTH OR UNDER THE TONGUE EVERY 4 HOURS NEEDED FOR PAIN MAXIMUM DAILY DOSE = 4ML TAKE 0.25-0.5ML BY MOUTH OR UNDER THE TO NGUE EVERY 4 HOURS NEEDED FOR PAIN MAXIMUM DAILY DOSE = 4ML SOLD: 12/27/2020 [facility] 31 gauge x 3/16" 12/12/2020 12:00:00 AM EST needle 30 USE DIRECTED USE DIRECTED SOLD: 12/15/2020 [facility] Onetouch Delica Plus Lancets Extra Fine 33G 12/09/2020 12:00 :00 AM EST active [facility] ([facility]) 0.5 mL 31 gauge x 5/16" 12/08/2020 12:00:00 AM EST syringe 30 USE WITH BASAGLAR DAILY USE WITH BASAGLAR DAILY SOLD: 12/10/2020 [facility] 33 gauge 12/06/2020 12:00:00 AM EST misc 100 USE FOUR TIMES A DAY USE FOUR TIMES A DAY SOLD: 12/07/2020 [facility] Ondansetron 8 MG Disintegrating Oral Tablet Ondansetron 12/03/2020 12:00:00 AM EST ORAL active [facility] ([facility]) Ondansetron 4 MG Oral Tablet [Zofran] Zofran 12/03/2020 12:00:00 AM EST ORAL completed [facility] ([facility]) 8 mg 12/03/2020 12:00:00 AM EST tablet,disintegrating [address] ONE TABLET UNDER THE TONGUE EVERY 6 TO 8 HOURS NEEDED FOR NAUSEA PLACE ONE TABLET UNDER THE TONGUE EVERY 6 TO 8 HOURS NEEDED FOR NAUSEA SOLD: 12/04/2020 [facility] BLOOD SUGAR DIAGNOSTIC 11/19/2020 12:00:00 AM EST strip 100 USE ONE TEST STRIP TO TEST FOUR TIMES A DAY USE ONE TEST STRIP TO TEST FOUR TIMES A DAY SOLD: 12/15/2020 [facility] BLOOD SUGAR DIAGNOSTIC 11/19/2020 12:00:00 AM EST strip 100 USE ONE TEST STRIP TO TEST FOUR TIMES A DAY USE ONE TEST STRIP TO TEST FOUR TIMES A DAY SOLD: 11/19/2020 [facility] Onetouch Ultra 11/18/2020 12:00:00 AM EST act haydee MED[facility] ([facility]) Morphine Sulfate 20 MG/ML Oral Solution Morphine Sulfate (Concentrate) 100 MG/5ML Oral Solution Morphine Sulfate (Concentrate) 100 MG/5ML Oral Solutio n 11/16/2020 12:00:00 AM EST active 100 mg/5 mL (20 mg/mL) 11/16/2020 12:00:00 AM EST solution 120 TAKE 0.25MLS BY MOUTH OR UNDER THE TONGUE FOR MILD TO MODERATE PAIN EVERY 3 HOURS OR 0.5 ML EVERY 3 HOURS FOR SEVERE PAIN MAXIMUM DAILY DOSE = 4 TAKE 0.25MLS BY MOUTH OR UNDER THE TONGUE FOR MILD TO MODERATE PAIN EVERY 3 HOURS OR 0.5 ML EVERY 3 HOURS FOR SEVERE PAIN MAXIMUM DAILY DOSE = 4 SOLD: 11/18/2020 [employer] [facility] 1 mg 11/15/2020 12:00:00 AM EST tablet 5 TAKE ONE TABLET BY MOUTH 1 HOUR PRIOR TO PROCEDURE, MAY TAKE A SECOND DOSE NEEDED FOR SEVERE ANXIETY MAXIMUM DAILY DOSE = 2 TABLETS TAKE ONE TABLET BY MOUTH 1 HOUR PRIOR TO PROCEDURE, MAY TAKE A SECOND DOSE NEEDED FOR SEVERE ANXIETY MAXIMUM DAILY DOSE = 2 TABLETS SOLD: 11/18/2020 [employer] Morphine Sulfate 20 MG/ML Oral Solution 100 mg/5 mL (20 mg/m L) MORPHINE SULFATE 11/07/2020 12:00:00 AM EST solution 30 TAKE 0.25ML UNDER THE TONGUE EVERY 3 HOURS FOR MILD TO MODERATE PAIN. MAY TAKE 0.5ML EVERY 4 HOURS NEEDED FOR MODERATE TO SEVERE PAIN MAXIMUM DAILY DOSE = 4ML TAKE 0.25ML UNDER THE TONGUE EVERY 3 HOURS FOR MILD TO MODERATE PAIN. MAY TAKE 0.5ML EVERY 4 HOURS NEEDED FOR MODERATE TO SEVERE PAIN MAXIMUM DAILY DOSE = 4ML SOLD: 11/07/2020 [employer] Amylases 85185 UNT / Endopeptidases 3800 0 UNT / Lipase 05140 UNT Delayed Release Oral Capsule [Creon] Creon 23934 UNIT Oral Capsule Delayed Release Particles Creon 21076 UNIT Oral Capsule Delayed Release Particles 11/06/2020 12:00:00 AM EST active TAKE ONE CAPSULE BY MOUTH THREE TIMES A DAY WITH MEALS 12,000-38,000 -60,000 unit 11/06/2020 12:00:00 A M EST capsule,delayed release(DR/EC) 90 TAKE ONE CAPSULE BY MOUTH THREE TIMES A DAY WITH MEALS TAKE ONE CAPSULE BY MOUTH THREE TIMES A DAY WITH MEALS SOLD: 11/07/2020 [employer] Onetouch Delica Lancets Extra Fine 33G 10/15/2020 12:00:00 AM NERY Givens completed [facility] ([facility]) BLOOD SUGAR DIAGNOSTIC 10/09/2020 12:00:00 AM EST strip 150 TEST TWO TIMES A DAY TEST TWO TIMES A DAY SOLD: 10/10/2020 [employer] 31 gauge x 5/16" 10/07/2020 12:00:00 AM EST needle 30 USE WITH BASAGLAR DAILY USE WITH BASAGLAR DAILY SOLD: 10/07/2020 [facility] 100 unit/mL (3 mL) 10/07/2020 12:00:00 AM EST insulin pen 15 INJECT 10 UNITS SUBCUTANEOUSLY ONCE DAILY INJECT 10 UNITS SUBCUTANEOUSLY ONCE DAILY SOLD: 10/07/2020 [facility] Basaglar Kwikpen Basaglar Kwikpen 10/07/2020 12:00:00 AM EST SUBCUTANEOUS active [facility] ([facility]) Insulin Syringes/0.5ML/31GX 5/16" 10/07/2020 12:00:00 AM EST active [facility] ([facility]) 31 gauge x 5/16" 10/07/2020 12:00:00 AM EST needle 30 USE WITH BASAGLAR DAILY USE WITH BASAGLAR DAILY SOLD: 11/07/2020 [facility] 31 gauge x 5/16" 10/07/2020 12:00:00 AM EST needle 30 USE WITH BASAGLAR DAILY USE WITH BASAGLAR DAILY SOLD: 12/06/2020 [facility] 100 mg 10/06/2020 12:00:00 AM EST capsule 90 TAKE ONE CAPSULE BY MOUTH EVERY 8 HOURS TAKE ONE CAPSULE BY MOUTH EVERY 8 HOURS SOLD: 11/06/2020 [facility] 100 mg 10/06/2020 12:00:00 AM EST capsule 90 TAKE ONE CAPSULE BY MOUTH EVERY 8 HOURS TAKE ONE CAPSULE BY MOUTH EVERY 8 HOURS SOLD: 10/07/2020 [facility] 100 mg 10/06/2020 12:00:00 AM EST capsule 90 TAKE ONE CAPSULE BY MOUTH EVERY 8 HOURS TAKE ONE CAPSULE BY MOUTH EVERY 8 HOURS SOLD: 12/04/2020 [facility] 100 mg 10/06/2020 12:00:00 AM EST capsule 90 TAKE ONE CAPSULE BY MOUTH EVERY 8 HOURS TAKE ONE CAPSULE BY MOUTH EVERY 8 HOURS SOLD: 12/31/2020 [facility] 50 mg 10/04/2020 12:00:00 AM EST tablet 120 TAKE 1-2 TABLETS BY MOUTH EVERY 6 HOURS NEEDED TAKE 1-2 TABLETS BY MOUTH EVERY 6 HOURS NEEDED SOLD : 11/06/2020 [facility] 50 mg 10/04/2020 12:00:00 AM EST tablet 120 TAKE 1-2 TABLETS BY MOUTH EVERY 6 HOURS NEEDED TAKE 1-2 TABLETS BY MOUTH EVERY 6 HOURS NEEDED SOLD : 10/07/2020 [facility] pioglitazone 15 MG Oral Tablet PIOGLITAZONE HCL 09/02/2020 12:00 :00 AM EDT tablet 30 TAKE ONE TABLET BY MOUTH EVERY D AY TAKE ONE TABLET BY MOUTH EVERY DAY SOLD: 12/04/2020 [facility] pioglitazone 15 MG Oral Tablet PIOGLITAZONE HCL 09/02/2020 12:00 :00 AM EDT tablet 30 TAKE ONE TABLET BY MOUTH EVERY D AY TAKE ONE TABLET BY MOUTH EVERY DAY SOLD: 11/06/2020 [facility] 25 mg 09/02/2020 12:00:00 AM EDT tablet 30 TAKE ONE TABLET BY MOUTH EVERY DAY TAKE ONE TABLET BY MOUTH EVERY DAY SOLD: 12/04/2020 [facility] 25 mg 09/02/2020 12:00:00 AM EDT tablet 30 TAKE ONE TABLET BY MOUTH EVERY DAY TAKE ONE TABLET BY MOUTH EVERY DAY SOLD: 11/06/2020 [facility] 25 mg 09/02/2020 12:00:00 AM EDT tablet 30 TAKE ONE TABLET BY MOUTH EVERY DAY TAKE ONE TABLET BY MOUTH EVERY DAY SOLD: 10/07/2020 [facility] 25 mg 09/02/2020 12:00:00 AM EDT tablet 30 TAKE ONE TABLET BY MOUTH EVERY DAY TAKE ONE TABLET BY MOUTH EVERY DAY SOLD: 09/06/2020 [facility] 100 mg 09/02/2020 12:00:00 AM EDT capsule 90 TAKE ONE CAPSULE BY MOUTH EVERY 8 HOURS TAKE ONE CAPSULE BY MOUTH EVERY 8 HOURS SOLD: 09/06/2020 [facility] 15 mg 09/02/2020 12:00:00 AM EDT tablet 30 TAKE ONE TABLET BY MOUTH EVERY DAY TAKE ONE TABLET BY MOUTH EVERY DAY SOLD: 10/07/2020 [facility] 15 mg 09/02/2020 12:00:00 AM EDT tablet 30 TAKE ONE TABLET BY MOUTH EVERY DAY TAKE ONE TABLET BY MOUTH EVERY DAY SOLD: 09/06/2020 [facility] 50 mg 08/05/2020 12:00:00 AM EDT tablet 120 TAKE 1-2 TABLETS BY MOUTH EVERY 6 HOURS NEEDED TAKE 1-2 TABLETS BY MOUTH EVERY 6 HOURS NEEDED SOLD : 09/06/2020 [facility] 50 mg 08/05/2020 12:00:00 AM EDT tablet 120 TAKE 1-2 TABLETS BY MOUTH EVERY 6 HOURS NEEDED TAKE 1-2 TABLETS BY MOUTH EVERY 6 HOURS NEEDED SOLD : 08/07/2020 [facility] atorvastatin 20 MG Oral Tablet ATORVASTATIN CALCIUM 08/04/2020 1 2:00:00 AM EDT tablet 30 TAKE ONE TABLET BY MOUTH EVERY D AY TAKE ONE TABLET BY MOUTH EVERY DAY SOLD: 12/04/2020 [facility] atorvastatin 20 MG Oral Tablet ATORVASTATIN CALCIUM 08/04/2020 1 2:00:00 AM EDT tablet 30 TAKE ONE TABLET BY MOUTH EVERY D AY TAKE ONE TABLET BY MOUTH EVERY DAY SOLD: 11/06/2020 [facility] atorvastatin 20 MG Oral Tablet ATORVASTATIN CALCIUM 08/04/2020 1 2:00:00 AM EDT tablet 30 TAKE ONE TABLET BY MOUTH EVERY D AY TAKE ONE TABLET BY MOUTH EVERY DAY SOLD: 12/31/2020 [facility] atorvastatin 20 MG Oral Tablet ATORVASTATIN CALCIUM 08/04/2020 1 2:00:00 AM EDT tablet 30 TAKE ONE TABLET BY MOUTH EVERY D AY TAKE ONE TABLET BY MOUTH EVERY DAY SOLD: 10/07/2020 [facility] 10 mg 08/04/2020 12:00:00 AM EDT tablet 30 TAKE ONE TABLET BY MOUTH EVERY DAY TAKE ONE TABLET BY MOUTH EVERY DAY SOLD: 12/31/2020 [facility] atorvastatin 20 MG Oral Tablet ATORVASTATIN CALCIUM 08/04/2020 1 2:00:00 AM EDT tablet 30 TAKE ONE TABLET BY MOUTH EVERY D AY TAKE ONE TABLET BY MOUTH EVERY DAY SOLD: 09/06/2020 [facility] 10 mg 08/04/2020 12:00:00 AM EDT tablet 60 TAKE ONE TABLET BY MOUTH TWICE A DAY TAKE ONE TABLET BY MOUTH TWICE A DAY SOLD: 08/07/2020 [facility] 10 mg 08/04/2020 12:00:00 AM EDT tablet 30 TAKE ONE TABLET BY MOUTH EVERY DAY TAKE ONE TABLET BY MOUTH EVERY DAY SOLD: 10/07/2020 [facility] 10 mg 08/04/2020 12:00:00 AM EDT tablet 60 TAKE ONE TABLET BY MOUTH TWICE A DAY TAKE ONE TABLET BY MOUTH TWICE A DAY SOLD: 10/07/2020 [facility] 10 mg 08/04/2020 12:00:00 AM EDT tablet 30 TAKE ONE TABLET BY MOUTH EVERY DAY TAKE ONE TABLET BY MOUTH EVERY DAY SOLD: 11/06/2020 [facility] 10 mg 08/04/2020 12:00:00 AM EDT tablet 60 TAKE ONE TABLET BY MOUTH TWICE A DAY TAKE ONE TABLET BY MOUTH TWICE A DAY SOLD: 12/31/2020 [facility] 10 mg 08/04/2020 12:00:00 AM EDT tablet 30 TAKE ONE TABLET BY MOUTH EVERY DAY TAKE ONE TABLET BY MOUTH EVERY DAY SOLD: 08/07/2020 [facility] 10 mg 08/04/2020 12:00:00 AM EDT tablet 30 TAKE ONE TABLET BY MOUTH EVERY DAY TAKE ONE TABLET BY MOUTH EVERY DAY SOLD: 12/04/2020 [facility] 10 mg 08/04/2020 12:00:00 AM EDT tablet 30 TAKE ONE TABLET BY MOUTH EVERY DAY TAKE ONE TABLET BY MOUTH EVERY DAY SOLD: 09/06/2020 [facility] atorvastatin 20 MG Oral Tablet ATORVASTATIN CALCIUM 08/04/2020 1 2:00:00 AM EDT tablet 30 TAKE ONE TABLET BY MOUTH EVERY D AY TAKE ONE TABLET BY MOUTH EVERY DAY SOLD: 08/07/2020 [facility] 10 mg 08/04/2020 12:00:00 AM EDT tablet 60 TAKE ONE TABLET BY MOUTH TWICE A DAY TAKE ONE TABLET BY MOUTH TWICE A DAY SOLD: 09/06/2020 [facility] 10 mg 08/04/2020 12:00:00 AM EDT tablet 60 TAKE ONE TABLET BY MOUTH TWICE A DAY TAKE ONE TABLET BY MOUTH TWICE A DAY SOLD: 12/04/2020 [facility] 10 mg 08/04/2020 12:00:00 AM EDT tablet 60 TAKE ONE TABLET BY MOUTH TWICE A DAY TAKE ONE TABLET BY MOUTH TWICE A DAY SOLD: 11/06/2020 [facility] 800 mg 07/25/2020 12:00:00 AM EDT tablet 90 TAKE ONE TABLET BY MOUTH THREE TIMES A DAY NEEDED TAKE ONE TABLET BY MOUTH THREE TIMES A DAY NEEDED S OLD: 09/23/2020 [facility] 800 mg 07/25/2020 12:00:00 AM EDT tablet 90 TAKE ONE TABLET BY MOUTH THREE TIMES A DAY NEEDED TAKE ONE TABLET BY MOUTH THREE TIMES A DAY NEEDED S OLD: 07/25/2020 [facility] Ibuprofen 800 MG Oral Tablet Ibuprofen 07/25/2020 12:00:00 AM EDT ORAL active [facility] ([facility]) 875-125 mg 07/17/2020 12:00:00 AM EDT tablet 14 TAKE ONE TABLET BY MOUTH TWICE A DAY TAKE ONE TABLET BY MOUTH TWICE A DAY SOLD: 07/24/2020 [facility] cefTRIAXone(Rocephin) Vial 1 G 07/17/2020 12:00:00 AM EDT completed [facility] ([facility]) Medication administered onsite Amoxicillin 875 MG / Clavulanate 125 MG Oral Tablet Am oxicillin/Clavulanate Potassium 07/17/2020 12:00:00 AM EDT ORAL completed [facility] ([facility]) 875-125 mg 07/17/2020 12:00:00 AM EDT tablet 14 TAKE ONE TABLET BY MOUTH TWICE A DAY TAKE ONE TABLET BY MOUTH TWICE A DAY SOLD: 07/17/2020 [facility] Paroxetine Hydrochloride 10 MG Oral Tablet PAROXETINE HCL 07/04/2020 12:00:00 AM EDT tablet 30 TAKE ONE TABLET BY MOUTH ELVIS RY DAY TAKE ONE TABLET BY MOUTH EVERY DAY SOLD: 12/04/2020 [facility] Paroxetine Hydrochloride 10 MG Oral Tablet PAROXETINE HCL 07/04/2020 12:00:00 AM EDT tablet 30 TAKE ONE TABLET BY MOUTH ELVIS RY DAY TAKE ONE TABLET BY MOUTH EVERY DAY SOLD: 10/07/2020 [facility] Paroxetine Hydrochloride 10 MG Oral Tablet PAROXETINE HCL 07/04/2020 12:00:00 AM EDT tablet 30 TAKE ONE TABLET BY MOUTH ELVIS RY DAY TAKE ONE TABLET BY MOUTH EVERY DAY SOLD: 11/06/2020 [facility] 50 mg 07/04/2020 12:00:00 AM EDT tablet 120 TAKE 1-2 TABLETS BY MOUTH EVERY 6 HOURS NEEDED TAKE 1-2 TABLETS BY MOUTH EVERY 6 HOURS NEEDED SOLD : 07/08/2020 [facility] Paroxetine Hydrochloride 10 MG Oral Tablet PAROXETINE HCL 07/04/2020 12:00:00 AM EDT tablet 30 TAKE ONE TABLET BY MOUTH ELVIS RY DAY TAKE ONE TABLET BY MOUTH EVERY DAY SOLD: 09/06/2020 [facility] Paroxetine Hydrochloride 10 MG Oral Tablet PAROXETINE HCL 07/04/2020 12:00:00 AM EDT tablet 30 TAKE ONE TABLET BY MOUTH ELVIS RY DAY TAKE ONE TABLET BY MOUTH EVERY DAY SOLD: 08/07/2020 [facility] Paroxetine Hydrochloride 10 MG Oral Tablet PAROXETINE HCL 07/04/2020 12:00:00 AM EDT tablet 30 TAKE ONE TABLET BY MOUTH ELVIS RY DAY TAKE ONE TABLET BY MOUTH EVERY DAY SOLD: 07/08/2020 [facility] 100 mg 06/02/2020 12:00:00 AM EDT capsule 90 TAKE ONE CAPSULE BY MOUTH EVERY 8 HOURS TAKE ONE CAPSULE BY MOUTH EVERY 8 HOURS SOLD: 06/08/2020 [facility] 100 mg 06/02/2020 12:00:00 AM EDT capsule 90 TAKE ONE CAPSULE BY MOUTH EVERY 8 HOURS TAKE ONE CAPSULE BY MOUTH EVERY 8 HOURS SOLD: 07/08/2020 [facility] 100 mg 06/02/2020 12:00:00 AM EDT capsule 90 TAKE ONE CAPSULE BY MOUTH EVERY 8 HOURS TAKE ONE CAPSULE BY MOUTH EVERY 8 HOURS SOLD: 08/07/2020 [facility] 10 mg 05/03/2020 12:00:00 AM EDT tablet 60 TAKE ONE TABLET BY MOUTH TWICE A DAY TAKE ONE TABLET BY MOUTH TWICE A DAY SOLD: 05/08/2020 [facility] 10 mg 05/03/2020 12:00:00 AM EDT tablet 30 TAKE ONE TABLET BY MOUTH EVERY DAY TAKE ONE TABLET BY MOUTH EVERY DAY SOLD: 06/08/2020 [facility] 10 mg 05/03/2020 12:00:00 AM EDT tablet 60 TAKE ONE TABLET BY MOUTH TWICE A DAY TAKE ONE TABLET BY MOUTH TWICE A DAY SOLD: 06/08/2020 [facility] 10 mg 05/03/2020 12:00:00 AM EDT tablet 30 TAKE ONE TABLET BY MOUTH EVERY DAY TAKE ONE TABLET BY MOUTH EVERY DAY SOLD: 05/08/2020 [facility] 10 mg 05/03/2020 12:00:00 AM EDT tablet 60 TAKE ONE TABLET BY MOUTH TWICE A DAY TAKE ONE TABLET BY MOUTH TWICE A DAY SOLD: 07/08/2020 [facility] 25 mg 05/03/2020 12:00:00 AM EDT tablet 30 TAKE ONE TABLET BY MOUTH EVERY DAY TAKE ONE TABLET BY MOUTH EVERY DAY SOLD: 08/07/2020 [facility] 25 mg 05/03/2020 12:00:00 AM EDT tablet 30 TAKE ONE TABLET BY MOUTH EVERY DAY TAKE ONE TABLET BY MOUTH EVERY DAY SOLD: 05/08/2020 [facility] 25 mg 05/03/2020 12:00:00 AM EDT tablet 30 TAKE ONE TABLET BY MOUTH EVERY DAY TAKE ONE TABLET BY MOUTH EVERY DAY SOLD: 07/08/2020 [facility] 25 mg 05/03/2020 12:00:00 AM EDT tablet 30 TAKE ONE TABLET BY MOUTH EVERY DAY TAKE ONE TABLET BY MOUTH EVERY DAY SOLD: 06/08/2020 [facility] pioglitazone 15 MG Oral Tablet PIOGLITAZONE HCL 05/03/2020 12:00 :00 AM EDT tablet 30 TAKE ONE TABLET BY MOUTH EVERY D AY TAKE ONE TABLET BY MOUTH EVERY DAY SOLD: 06/08/2020 [facility] pioglitazone 15 MG Oral Tablet PIOGLITAZONE HCL 05/03/2020 12:00 :00 AM EDT tablet 30 TAKE ONE TABLET BY MOUTH EVERY D AY TAKE ONE TABLET BY MOUTH EVERY DAY SOLD: 05/08/2020 [facility] Paroxetine Hydrochloride 10 MG Oral Tablet PAROXETINE HCL 05/03/2020 12:00:00 AM EDT tablet 30 TAKE ONE TABLET BY MOUTH ELVIS DAY TAKE ONE TABLET BY MOUTH EVERY DAY SOLD: 06/08/2020 [facility] 10 mg 05/03/2020 12:00:00 AM EDT tablet 30 TAKE ONE TABLET BY MOUTH EVERY DAY TAKE ONE TABLET BY MOUTH EVERY DAY SOLD: 07/08/2020 [facility] pioglitazone 15 MG Oral Tablet PIOGLITAZONE HCL 05/03/2020 12:00 :00 AM EDT tablet 30 TAKE ONE TABLET BY MOUTH EVERY D AY TAKE ONE TABLET BY MOUTH EVERY DAY SOLD: 07/08/2020 [facility] 50 mg 05/03/2020 12:00:00 AM EDT tablet 120 TAKE 1-2 TABLETS BY MOUTH EVERY 6 HOURS NEEDED TAKE 1-2 TABLETS BY MOUTH EVERY 6 HOURS NEEDED SOLD : 05/08/2020 [facility] pioglitazone 15 MG Oral Tablet PIOGLITAZONE HCL 05/03/2020 12:00 :00 AM EDT tablet 30 TAKE ONE TABLET BY MOUTH EVERY D AY TAKE ONE TABLET BY MOUTH EVERY DAY SOLD: 08/07/2020 [facility] 50 mg 05/03/2020 12:00:00 AM EDT tablet 120 TAKE 1-2 TABLETS BY MOUTH EVERY 6 HOURS NEEDED TAKE 1-2 TABLETS BY MOUTH EVERY 6 HOURS NEEDED SOLD : 06/08/2020 [facility] 10 mg 05/03/2020 12:00:00 AM EDT tablet 30 TAKE ONE TABLET BY MOUTH EVERY DAY TAKE ONE TABLET BY MOUTH EVERY DAY SOLD: 05/08/2020 [facility] atorvastatin 20 MG Oral Tablet ATORVASTATIN CALCIUM 04/04/2020 1 2:00:00 AM EDT tablet 30 TAKE ONE TABLET BY MOUTH EVERY D AY TAKE ONE TABLET BY MOUTH EVERY DAY SOLD: 07/08/2020 [facility] atorvastatin 20 MG Oral Tablet ATORVASTATIN CALCIUM 04/04/2020 1 2:00:00 AM EDT tablet 30 TAKE ONE TABLET BY MOUTH EVERY D AY TAKE ONE TABLET BY MOUTH EVERY DAY SOLD: 04/08/2020 [facility] atorvastatin 20 MG Oral Tablet ATORVASTATIN CALCIUM 04/04/2020 1 2:00:00 AM EDT tablet 30 TAKE ONE TABLET BY MOUTH EVERY D AY TAKE ONE TABLET BY MOUTH EVERY DAY SOLD: 06/08/2020 [facility] atorvastatin 20 MG Oral Tablet ATORVASTATIN CALCIUM 04/04/2020 1 2:00:00 AM EDT tablet 30 TAKE ONE TABLET BY MOUTH EVERY D AY TAKE ONE TABLET BY MOUTH EVERY DAY SOLD: 05/08/2020 [facility] Onetouch Ultra 03/05/2020 12:00:00 AM EDT act haydee [facility] ([facility]) 10 mg 03/04/2020 12:00:00 AM EDT tablet 30 TAKE ONE TABLET BY MOUTH EVERY DAY TAKE ONE TABLET BY MOUTH EVERY DAY SOLD: 03/09/2020 [facility] 50 mg 03/04/2020 12:00:00 AM EDT tablet 120 TAKE 1-2 TABLETS BY MOUTH EVERY 6 HOURS NEEDED TAKE 1-2 TABLETS BY MOUTH EVERY 6 HOURS NEEDED SOLD : 03/09/2020 [facility] 50 mg 03/04/2020 12:00:00 AM EDT tablet 120 TAKE 1-2 TABLETS BY MOUTH EVERY 6 HOURS NEEDED TAKE 1-2 TABLETS BY MOUTH EVERY 6 HOURS NEEDED SOLD : 04/08/2020 [facility] 10 mg 03/04/2020 12:00:00 AM EDT tablet 30 TAKE ONE TABLET BY MOUTH EVERY DAY TAKE ONE TABLET BY MOUTH EVERY DAY SOLD: 04/08/2020 [facility] 10 mg 02/05/2020 12:00:00 AM EDT tablet 60 TAKE ONE TABLET BY MOUTH TWICE A DAY TAKE ONE TABLET BY MOUTH TWICE A DAY SOLD: 03/09/2020 [facility] 10 mg 02/05/2020 12:00:00 AM EDT tablet 60 TAKE ONE TABLET BY MOUTH TWICE A DAY TAKE ONE TABLET BY MOUTH TWICE A DAY SOLD: 04/08/2020 [facility] 10 mg 02/05/2020 12:00:00 AM EDT tablet 60 TAKE ONE TABLET BY MOUTH TWICE A DAY TAKE ONE TABLET BY MOUTH TWICE A DAY SOLD: 02/08/2020 [facility] 10 mg 02/05/2020 12:00:00 AM EDT tablet 30 TAKE ONE TABLET BY MOUTH EVERY DAY TAKE ONE TABLET BY MOUTH EVERY DAY SOLD: 03/09/2020 [facility] 100 mg 02/05/2020 12:00:00 AM EDT capsule 90 TAKE ONE CAPSULE BY MOUTH EVERY 8 HOURS TAKE ONE CAPSULE BY MOUTH EVERY 8 HOURS SOLD: 04/08/2020 [facility] 100 mg 02/05/2020 12:00:00 AM EDT capsule 90 TAKE ONE CAPSULE BY MOUTH EVERY 8 HOURS TAKE ONE CAPSULE BY MOUTH EVERY 8 HOURS SOLD: 02/08/2020 [facility] 10 mg 02/05/2020 12:00:00 AM EDT tablet 30 TAKE ONE TABLET BY MOUTH EVERY DAY TAKE ONE TABLET BY MOUTH EVERY DAY SOLD: 04/08/2020 [facility] 100 mg 02/05/2020 12:00:00 AM EDT capsule 90 TAKE ONE CAPSULE BY MOUTH EVERY 8 HOURS TAKE ONE CAPSULE BY MOUTH EVERY 8 HOURS SOLD: 05/08/2020 [facility] 100 mg 02/05/2020 12:00:00 AM EDT capsule 90 TAKE ONE CAPSULE BY MOUTH EVERY 8 HOURS TAKE ONE CAPSULE BY MOUTH EVERY 8 HOURS SOLD: 03/09/2020 [facility] 10 mg 02/05/2020 12:00:00 AM EDT tablet 30 TAKE ONE TABLET BY MOUTH EVERY DAY TAKE ONE TABLET BY MOUTH EVERY DAY SOLD: 02/08/2020 [facility] pioglitazone 15 MG Oral Tablet PIOGLITAZONE HCL 01/10/2020 12:00 :00 AM EST tablet 30 TAKE ONE TABLET BY MOUTH EVERY D AY TAKE ONE TABLET BY MOUTH EVERY DAY SOLD: 01/15/2020 [facility] 25 mg 01/10/2020 12:00:00 AM EST tablet 30 TAKE ONE TABLET BY MOUTH EVERY DAY TAKE ONE TABLET BY MOUTH EVERY DAY SOLD: 01/15/2020 [facility] pioglitazone 15 MG Oral Tablet PIOGLITAZONE HCL 01/10/2020 12:00 :00 AM EST tablet 30 TAKE ONE TABLET BY MOUTH EVERY D AY TAKE ONE TABLET BY MOUTH EVERY DAY SOLD: 04/08/2020 [facility] 25 mg 01/10/2020 12:00:00 AM EST tablet 30 TAKE ONE TABLET BY MOUTH EVERY DAY TAKE ONE TABLET BY MOUTH EVERY DAY SOLD: 04/08/2020 [facility] 25 mg 01/10/2020 12:00:00 AM EST tablet 30 TAKE ONE TABLET BY MOUTH EVERY DAY TAKE ONE TABLET BY MOUTH EVERY DAY SOLD: 03/09/2020 [facility] 25 mg 01/10/2020 12:00:00 AM EST tablet 30 TAKE ONE TABLET BY MOUTH EVERY DAY TAKE ONE TABLET BY MOUTH EVERY DAY SOLD: 02/08/2020 [facility] pioglitazone 15 MG Oral Tablet PIOGLITAZONE HCL 01/10/2020 12:00 :00 AM EST tablet 30 TAKE ONE TABLET BY MOUTH EVERY D AY TAKE ONE TABLET BY MOUTH EVERY DAY SOLD: 02/08/2020 [facility] pioglitazone 15 MG Oral Tablet PIOGLITAZONE HCL 01/10/2020 12:00 :00 AM EST tablet 30 TAKE ONE TABLET BY MOUTH EVERY D AY TAKE ONE TABLET BY MOUTH EVERY DAY SOLD: 03/09/2020 [facility] pioglitazone 15 MG Oral Tablet Pioglitazone HCL 01/09/2020 12:00:00 A M EST ORAL active [facility] ([facility]) alogliptin 25 MG Oral Tablet Alogliptin Benzoate 01/09/2020 12:00:00 AM EST ORAL active [facility] ([facility]) 10 mg 01/02/2020 12:00:00 AM EST tablet 30 TAKE ONE TABLET BY MOUTH EVERY DAY TAKE ONE TABLET BY MOUTH EVERY DAY SOLD: 01/09/2020 [facility] 50 mg 01/02/2020 12:00:00 AM EST tablet 120 TAKE 1-2 TABLETS BY MOUTH EVERY 6 HOURS NEEDED TAKE 1-2 TABLETS BY MOUTH EVERY 6 HOURS NEEDED SOLD : 01/09/2020 [facility] 50 mg 01/02/2020 12:00:00 AM EST tablet 120 TAKE 1-2 TABLETS BY MOUTH EVERY 6 HOURS NEEDED TAKE 1-2 TABLETS BY MOUTH EVERY 6 HOURS NEEDED SOLD : 02/08/2020 [facility] 10 mg 01/02/2020 12:00:00 AM EST tablet 30 TAKE ONE TABLET BY MOUTH EVERY DAY TAKE ONE TABLET BY MOUTH EVERY DAY SOLD: 02/08/2020 [facility] 10 mg 01/02/2020 12:00:00 AM EST tablet 30 TAKE ONE TABLET BY MOUTH EVERY DAY TAKE ONE TABLET BY MOUTH EVERY DAY SOLD: 01/09/2020 [facility] 10 mg 01/02/2020 12:00:00 AM EST tablet 60 TAKE ONE TABLET BY MOUTH TWICE A DAY TAKE ONE TABLET BY MOUTH TWICE A DAY SOLD: 01/09/2020 [facility] 25-15 mg 12/15/2019 12:00:00 AM EST tablet 30 TAKE ONE TABLET BY MOUTH EVERY DAY TAKE ONE TABLET BY MOUTH EVERY DAY SOLD: 12/18/2019 [facility] atorvastatin 20 MG Oral Tablet ATORVASTATIN CALCIUM 12/14/2019 1 2:00:00 AM EST tablet 30 TAKE ONE TABLET BY MOUTH EVERY D AY TAKE ONE TABLET BY MOUTH EVERY DAY SOLD: 03/09/2020 [facility] atorvastatin 20 MG Oral Tablet ATORVASTATIN CALCIUM 12/14/2019 1 2:00:00 AM EST tablet 30 TAKE ONE TABLET BY MOUTH EVERY D AY TAKE ONE TABLET BY MOUTH EVERY DAY SOLD: 02/08/2020 [facility] atorvastatin 20 MG Oral Tablet ATORVASTATIN CALCIUM 12/14/2019 1 2:00:00 AM EST tablet 30 TAKE ONE TABLET BY MOUTH EVERY D AY TAKE ONE TABLET BY MOUTH EVERY DAY SOLD: 01/15/2020 [facility] atorvastatin 20 MG Oral Tablet ATORVASTATIN CALCIUM 12/14/2019 1 2:00:00 AM EST tablet 30 TAKE ONE TABLET BY MOUTH EVERY D AY TAKE ONE TABLET BY MOUTH EVERY DAY SOLD: 12/18/2019 [facility] 10 mg 12/03/2019 12:00:00 AM EST tablet 30 TAKE ONE TABLET BY MOUTH EVERY DAY TAKE ONE TABLET BY MOUTH EVERY DAY SOLD: 12/09/2019 [facility] 10 mg 12/03/2019 12:00:00 AM EST tablet 30 TAKE ONE TABLET BY MOUTH EVERY DAY TAKE ONE TABLET BY MOUTH EVERY DAY SOLD: 12/09/2019 [facility] 10 mg 12/03/2019 12:00:00 AM EST tablet 60 TAKE ONE TABLET BY MOUTH TWICE A DAY TAKE ONE TABLET BY MOUTH TWICE A DAY SOLD: 12/09/2019 [facility] 33 gauge 12/02/2019 12:00:00 AM EST misc 100 USE TO TEST BLOOD SUGAR THREE TIMES A DAY USE TO TEST BLOOD SUGAR THREE TIMES A DAY SOLD: 01/09/2020 [facility] 33 gauge 12/02/2019 12:00:00 AM EST misc 100 USE TO TEST BLOOD SUGAR THREE TIMES A DAY USE TO TEST BLOOD SUGAR THREE TIMES A DAY SOLD: 03/09/2020 [facility] 33 gauge 12/02/2019 12:00:00 AM EST misc 100 USE TO TEST BLOOD SUGAR THREE TIMES A DAY USE TO TEST BLOOD SUGAR THREE TIMES A DAY SOLD: 02/08/2020 [facility] 33 gauge 12/02/2019 12:00:00 AM EST misc 100 USE TO TEST BLOOD SUGAR THREE TIMES A DAY USE TO TEST BLOOD SUGAR THREE TIMES A DAY SOLD: 12/09/2019 [facility] 90 mcg/actuation 11/29/2019 12:00:00 AM EST HFA aerosol inha ler 18 USE 1-2 PUFFS BY MOUTH EVERY 6 HOURS NEEDED USE 1-2 PUFFS BY MOUTH EVERY 6 HOURS NEEDED SOLD: 12/09/2019 [facility] 90 mcg/actuation 11/29/2019 12:00:00 AM EST HFA aerosol inha ler 18 USE 1-2 PUFFS BY MOUTH EVERY 6 HOURS NEEDED USE 1-2 PUFFS BY MOUTH EVERY 6 HOURS NEEDED SOLD: 02/08/2020 [facility] 90 mcg/actuation 11/29/2019 12:00:00 AM EST HFA aerosol inha ler 18 USE 1-2 PUFFS BY MOUTH EVERY 6 HOURS NEEDED USE 1-2 PUFFS BY MOUTH EVERY 6 HOURS NEEDED SOLD: 03/09/2020 [facility] 90 mcg/actuation 11/29/2019 12:00:00 AM EST HFA aerosol inha ler 18 USE 1-2 PUFFS BY MOUTH EVERY 6 HOURS NEEDED USE 1-2 PUFFS BY MOUTH EVERY 6 HOURS NEEDED SOLD: 01/09/2020 [facility] 60 ACTUAT Albuterol 0.09 MG/ACTUAT Metered Dose Inhaler Albu terol Sulfate HFA 11/28/2019 12:00:00 AM EST ORAL active [facility] ([facility]) 50 mg 10/26/2019 12:00:00 AM EST tablet 96 TAKE 1-2 TABLETS BY MOUTH EVERY 6 HOURS NEEDED TAKE 1-2 TABLETS BY MOUTH EVERY 6 HOURS NEEDED SOLD : 11/07/2019 [facility] 100 mg 10/04/2019 12:00:00 AM EST capsule 90 TAKE ONE CAPSULE BY MOUTH EVERY 8 HOURS TAKE ONE CAPSULE BY MOUTH EVERY 8 HOURS SOLD: 12/09/2019 [facility] 100 mg 10/04/2019 12:00:00 AM EST capsule 90 TAKE ONE CAPSULE BY MOUTH EVERY 8 HOURS TAKE ONE CAPSULE BY MOUTH EVERY 8 HOURS SOLD: 11/07/2019 [facility] 100 mg 10/04/2019 12:00:00 AM EST capsule 90 TAKE ONE CAPSULE BY MOUTH EVERY 8 HOURS TAKE ONE CAPSULE BY MOUTH EVERY 8 HOURS SOLD: 01/09/2020 [facility] 10 mg 08/07/2019 12:00:00 AM EDT tablet 30 TAKE ONE TABLET BY MOUTH EVERY DAY TAKE ONE TABLET BY MOUTH EVERY DAY SOLD: 11/07/2019 [facility] 10 mg 08/07/2019 12:00:00 AM EDT tablet 60 TAKE ONE TABLET BY MOUTH TWICE A DAY TAKE ONE TABLET BY MOUTH TWICE A DAY SOLD: 11/07/2019 [facility] atorvastatin 20 MG Oral Tablet ATORVASTATIN CALCIUM 07/31/2019 1 2:00:00 AM EDT tablet 30 TAKE ONE TABLET BY MOUTH EVERY D AY TAKE ONE TABLET BY MOUTH EVERY DAY SOLD: 11/23/2019 [facility] 10 mg 07/30/2019 12:00:00 AM EDT tablet 30 TAKE ONE TABLET BY MOUTH EVERY DAY TAKE ONE TABLET BY MOUTH EVERY DAY SOLD: 11/07/2019 [facility] 25-15 mg 07/28/2019 12:00:00 AM EDT tablet 30 TAKE ONE TABLET BY MOUTH EVERY DAY TAKE ONE TABLET BY MOUTH EVERY DAY SOLD: 11/07/2019 [facility] 90 mcg/actuation 07/28/2019 12:00:00 AM EDT HFA aerosol inha ler 18 USE 1-2 PUFFS BY MOUTH EVERY 6 HOURS NEEDED USE 1-2 PUFFS BY MOUTH EVERY 6 HOURS NEEDED SOLD: 11/07/2019 [facility] Insurance Providers Payer name Policy type / Coverage type Policy ID Covered green party ID Covered green party's relationship to gonzalez Policy Gonzalez Plan Information [employer] COMMUNITY PLAN [id number] SP [id number] [facility] COMMUNTY PLAN [id number] 18 [id number] UNHC COMMUNITY PLAN XIX [id number] 18 [id number] UHC I [id number] Self [id number] [facility] MEDICAID [id number] Radha [id number] INSURANCE COVID-19 COVID Radha C OVID [employer] COMMUNITY PLAN [id number] 18 [id number] [facility] MEDICAID [id number] INSURANCE COVID-19 [id number] [employer](MCAID) O [id number] S [id number] [employer] COMMUNITY PLAN MCDO [id number] SP [id number] [facility] Communty Plan Medicaid [id number] Self [id number] [facility] Communty Plan Medicaid [id number] Self [id number] MEDICAID -RECURRING [id number] [facility] Communty Plan Medicaid [id number] Self [id number] [facility] Communty Plan Medicaid [id number] Self [id number] [facility] Communty Plan Medicaid [id number] Self 10 [id number] [facility] Communty Plan Medicaid [id number] Self [id number] UNHC COMMUNITY PLAN [id number] 18 [id number] UNHC COMMUNITY PLAN MCDO [id number] SP [id number] EXCELLUS I [id number] Self [id number] UNHC COMMUNITY PLAN [id number] SP [id number] [employer] Community Plan Medicaid [id number] Self [id number] [employer] Community Plan Medicaid [id number] Self [id number] [employer] Community Plan Medicaid [id number] Self [id number] [employer] Community Plan Medicaid [id number] Self [id number] UNHC AMERICHOICE XIX -HMO [id number] 18 [id number] [employer] Community Plan Medicaid [id number] Self [id number] [employer] Community Plan Medicaid Self Unitedhealthcare Medicaid Medicaid Self UNHC AMERICHOICE HMO [id number] 18 [id number] HMO BLUE [id number] SP [id number] MEDICAID - CLINIC [id number] AN [id number] BLUE CROSS BLUE SHIELD-CLINIC [id number] 18 [id number] BLUE CROSS BLUE SHIELD-O/P [id number] 18 [id number] BLUE CROSS BLUE SHIELD-O/P [id number] 18 [id number] MEDICAID-O/P [id number] 18 [id number] MEDICAID -O/P EMERGENCY ROOM [id number] 18 [id number] Problems, Conditions, and Diagnoses Code Display Name Description Problem Type Effective Dates Data Source(s) 838929346 Pure hypercholesterolemia Pure hypercholesterolemia Pr oblem 07/17/2020 12:00:00 AM EDT [facility] ([facility]) [id number] 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 Problem 020 12:00:00 AM EDT [facility] ([facility]) E119 Type 2 diabetes mellitus without complic ations Type 2 diabetes mellitus without complications Diagnosis 12/05/2020 10:09:00 AM [facility] C259 Malignant neoplasm of pancreas, unspecif ied Malignant neoplasm of pancreas, unspecified Diagnosis 12/05/2020 10:09:00 AM [facility] U071 COVID-19 COVID-19 Diagnosis 12/05/2020 10:09:00 AM [facility] Z13.79 Encounter for other screening for geneti c and chromosomal anomalies Encounter for other screening for genetic and chromosomal anomalies Diagnosis 11/26/2020 08:01:26 AM [facility] Z71.83 Encounter for nonprocreative genetic cou nseling Encounter for nonprocreative genetic counseling Diagnosis 11/26/2020 08:01:26 AM [facility] C25.9 Malignant neoplasm of pancreas, unspecif ied Malignant neoplasm of pancreas, unspecified Diagnosis 11/18/2020 01:41:[address] [facility] K74.69 Other cirrhosis of liver Other cirrhosis of liver Diag nosis 11/18/2020 08:57:21 AM [facility] K86.89 Other specified diseases of pancreas Oth er specified diseases of pancreas Diagnosis 11/15/2020 12:10:00 PM [facility] C8590 Non-Hodgkin lymphoma, unspecified, unspe cified site Non-Hodgkin lymphoma, unspecified, unspecified site Diagnosis 11/11/2020 08:22:00 AM [facility] [id number] Hemochromatosis, unspecified Hemochromatosis, unspecif ied Diagnosis 11/11/2020 08:22:00 AM [facility] K86.89 Other specified diseases of pancreas Oth er specified diseases of pancreas Diagnosis 10/28/2020 07:02:[address] 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 (current) use of oral hypoglycemic drugs Diagnosis 09/29/2020 10:10:00 AM [facility] [id number] Personal history of nicotine dependence Personal history of nicotine dependence Diagnosis 09/29/2020 10:10:00 AM [facility] I10 Essential (primary) hypertension Essential (primary) h ypertension Diagnosis 09/29/2020 10:10:00 AM [facility] E785 Hyperlipidemia, unspecified Hyperlipidemia, unspecifie d Diagnosis 09/29/2020 10:10:00 AM [facility] K831 Obstruction of bile duct Obstruction of bile duct Diag nosis 09/29/2020 10:10:00 AM [facility] N3000 Acute cystitis without hematuria Acute cystitis without hematuria Diagnosis 09/29/2020 10:10:00 AM [facility] B179 Acute viral hepatitis, unspecified Acute viral h epatitis, unspecified Diagnosis 09/29/2020 10:10:00 AM [facility] K8510 Biliary acute pancreatitis without necro sis or infection Biliary acute pancreatitis without necrosis or infection Diagnosis 09/29/2020 10:10: 00 AM [facility] R1084 Generalized abdominal pain Generalized abdominal pain Diagnosis 09/29/2020 10:10:00 AM [facility] I43 Cardiomyopathy in diseases classified el sewhere Cardiomyopathy in diseases classified elsewhere Diagnosis [facility]/27[facility]2020 [facility] D696 Thrombocytopenia, unspecified Thrombocytopenia, unspec ified Diagnosis [facility] Decreased white blood cell count, unspec ified Decreased white blood cell count, unspecified Diagnosis 08/27/2020 08:24:00 AM [facility] [id number] Encounter for surgical after care following surgery on the skin and subcutaneous tissue Encounter for surgical aftercare followi ng surgery on the skin and subcutaneous tissue Diagnosis 08/01/2020 08:44:00 AM [facility] Z23 Encounter for immunization Encounter for immunization Diagnosis 07/25/2020 08:26:00 AM [facility] [id number] Cutaneous abscess of right axilla Cutaneous absc ess of right axilla Diagnosis 07/25/2020 08:26:00 AM [facility] [id number] Cutaneous abscess of chest wall Cutaneous absces s of chest wall Diagnosis 07/17/2020 08:48:00 AM [facility] K7689 Other specified diseases of liver Other specifie d diseases of liver Diagnosis 06/25/2020 07:05:00 AM [facility] Surgeries/Procedures Procedure Description Date Indications Data Source(s) GLUC BLD GLUC MNTR DEV CLEARED FDA SPEC HOME USE POCT GLUCOSE Routine 10/28/2020 7:29 AM EST 10/28/2020 12:29:00 PM EST [facility] Endo W/Eus & Fna (Stomach) 10/28/2020 12:00:00 AM EST [facility] ([facility]) ECG ROUTINE ECG W/LEAST 12 LDS TRCG ONLY W/O I&R ECG 12-LEAD Routine 10/24/2020 8:50 AM EST Other specified diseases of pancreas 10/24/2020 01:50:11 PM EST Other specified diseases of pancreas [facility] Other specified diseases of pancreas HEMOGLOBIN GLYCOSYLATED A1C HEMOGLOBIN A1C Routine 10/24/2020 8:45 AM EST Other specified diseases of pancreas 10/24/2020 01:45:00 PM EST Other specified diseases of pancreas [facility] Other specified diseases of pancreas BASIC METABOLIC PANEL CALCIUM TOTAL BASIC METABOLIC PANEL Routi ne 10/24/2020 8:45 AM EST Other specified diseases of pancreas 10/24/2020 01:45:00 PM EST Other specified diseases of pancreas [facility] Other specified diseases of pancreas I & D Abscess Simple 07/17/2020 12:00:00 AM EDT [facility] ([facility]) Results ID Date Data Source [id number] 12/11/2020 03:48:42 PM EST [facility] Name Value Range Interpretation Code Description Data Valentina rce(s) Supporting Document(s) Progress Note [facility] [id number] lbm [file] ICAgICAgICAgICAgICAgICAgICAgICAgICAgICAgIC AgICAgICAgICAgICAgICAgICAgICAgICAgICAgICAgICAgICAgICAgICAgICAgICAgICAgICAgICAgIC AgICAgDQogICAgICAgICAgICAgICAgICAgICAgICAgICAgICAgICAgICAgICAgICAgICAgICAgICAgIC AgICAgICAgICAgICAgICAgICAgICAgICAgICAgICAg ICAgICAgICAgICAgICAgDQogICAgICAgICAgICAgICAgICAgICAgICAgICAgICAgICAgICAgICAgICAg ICAgICAgICAgICAgICAgICAgICAgICAgICAgICAgICAgICAgICAgICAgICAgICAgICAgICAgICAgDQog ICAgICAgICAgICAgICAgICAgICAgICAgICAgICAgIC AgICAgICAgICAgICAgICAgICAgICAgICAgICAgICAgICAgICAgICAgICAgICAgICAgICAgICAgICAgIC AgICAgICAgDQogICAgICAgICAgICAgICAgICAgICAgICAgICAgICAgICAgICAgICAgICAgICAgICAgIC AgICAgICAgICAgICAgICAgICAgICAgICAgICAgICAg ICAgICAgICAgICAgICAgICAgDQogICAgICAgICAgICAgICAgICAgICAgICAgICAgICAgICAgICAgICAg ICAgICAgICAgICAgICAgICAgICAgICAgICAgICAgICAgICAgICAgICAgICAgICAgICAgICAgICAgICAg DQogICAgICAgICAgICAgICAgICAgICAgICAgICAgIC AgICAgICAgICAgICAgICAgICAgICAgICAgICAgICAgICAgICAgICAgICAgICAgICAgICAgICAgICAgIC AgICAgICAgICAgDQogICAgICAgICAgICAgICAgICAgICAgICAgICAgICAgICAgICAgICAgICAgICAgIC AgICAgICAgICAgICAgICAgICAgICAgICAgICAgICAg ICAgICAgICAgICAgICAgICAgICAgDQogICAgICAgICAgICAgICAgICAgICAgICAgICAgICAgICAgICAg ICAgICAgICAgICAgICAgICAgICAgICAgICAgICAgICAgICAgICAgICAgICAgICAgICAgICAgICAgICAg ICAgDQogICAgICAgICAgICAgICAgICAgICAgICAgIC AgICAgICAgICAgICAgICAgICAgICAgICAgICAgICAgICAgICAgICAgICAgICAgICAgICAgICAgICAgIC DqNAPdNMJsUUKwEFNgQEg3P1ckFGReKAEfBT6sLZs1Ai2+BCzFNuVaRVE7cyBxfZ6LPE6kc3RaAVojQP Dxt4DfTPc6DR2XAJFhHDlmGB1YKQmcwn9AZSFeRWJj rZIYq8wkOkQcMQK3PDWzCngkNK0PPRSvM4cqqkEoZUYpCRBHNKerASDGVGqwXSARMJ8KIoSsQ7BakA77 IDMNCj4+XRmuojYgXalFNdPtWNGtq0YzZBl1KS2YJEHwNratb1SjYvClFORZHUjjKS8ZRXI6FZT1TMRd Wd6ATDTbS360gkIkBW5LXd5ISmYhQL1jrv4OFnHpVI MdRdwUCuj2YUtlRO4XyFUiAYhDad1uaeXmijANc0EpcfZueSBKXRWbVHBkAOIgwAHsEN4ZFSH8YRSdHg 7uTKYeFHQhJdJtQMCYJZ0YANJwESXjxJPgKGLzZHMUGE8KKAaqXBF6AHFtcuDcdFCkDMzaSZ5CLSBpfp QgMjMgMCBSDQo+Iv7IFM1wl9ZfWYluMIWpPQ0wxj9D NNlKUtTbG6J1pASyM4J3PQcyHd0PFNLrSEIhHnFrKEZWPJakUQ7ESV0ixoA8LL5TyCFfNDXdFGWdcNGx DRt8F74knVGfXPrvJN4SZQD+Rigoberto+Cm0YXPKpJVJvRRKgHhKpCRHCMlPcD9XjV3LBr6ByM3KsAH89qLbs giRuZEwbCO9SRW5aPEMrWKKYZE2FhFGqzS9ixeZfZs CsXIFKXzXgB63ybKJbDCDqUAShFLHkWx1WLLYkF4JclbGarNtokxOpFICqAEEAGY3EHXdgwlGdoARakK xnMF95bKnlTP6OAc3ECnJcVN6nvd3OnMEuFf1WUZZvEj9MYOQrGEBgKTSrTZO2KHLfWpVaNKbqODJvEW FxJXL3SKRbGNHfCO1GVgAuKDSgHhQ3FPxlPRKkJCHe ka4HRIOwQYTwBGItQRVmDXTmEUBmXDaxTVTgTIXlSWE3PUMjHTCnIZ7YJtTwGYKrVYUzQSsgTZGiBDCl nu0THBPsDYQsNARcUhGqOREnAQXsAGcxWUBjGPB7GvdhLCFwWJNmNM8XTmQeLTQfUTg6AJXvDRXuORGh er0USTQtSRAgYOQfTXTzOEEuZWZhUDpgBSSwSVB1Uv ZfPGMfNVHsTA0JCiUnYIDpNJu5WFTgMNCuXVHugt3WWUEsEAIpLYo2IVZzCXFhVPTlJKdkAXEqDZQdST TwJUAtKYEfTA0HUrBfGROhSJOtZjMvSJEzZJOhcg0SOSVvCEObNASpUsVmWQZmDGYfTBdnICLlOYCfCP BjQZAaTTUmAB3TNbBtFKMdOtT3SqKlFRDuPNBadc7D UWZeGVWuRmX8NiOtTUXeERGxMOteHKCjGNBpDdjrHRLvKIIlSH5PRhHuEUEzKmD6ErQpBJAjTELwts6C MPGvDLZgQfY2DxRzHCGxCAFrWXzzRJMfKDY4INp2VWUjHTXdTW4OSgTrRYUjLbB9YvpkGFAtQXOysz6Q JQLfATUwEDW8EDXwHRFzTZNmFOjtCDAiHCH3QpM1JN AaYTVwEG6KMaUjEShsWJEVHpa7FDnkM9z4VCBsTp9RW4Vna9NxOfHvPBBXXWvcDZ8earYdGETxQo5SV3 xUGbz7OkH5WJYvYYCxFZEzCXLdZGRxGyKaSKJ4JJC1AFC7GZ3hKRVvVWGvXTF9IQC1ZNAlEPDhWBYdK3 E8KHayYWF9YydtSoQiJG2FAn5[id number]= ID Date Data Source [id number] 12/05/2020 12:24:33 PM [facility] Name Value Range Interpretation Code Description Data Valentina rce(s) Supporting Document(s) Progress Note [facility] DEVSNy9vZmYPLjPi88/BNJdsEXPtx7PwXHalGLx4EHrbMSPlN1SsSNV9oC0nULA9FTlCTgXdXrBqKCQ5 lbm [file] [id number]== ID Date Data Source [id number] 12/02/2020 05:49:00 PM EST [facility] ([facility]) Name Value Range Interpretation Code Description Data Valentina rce(s) Supporting Document(s) Influenza virus A RNA [Presence] in Unsp ecified specimen by Probe and target amplification method Laboratory test result [facility] ([facility]) Influenza virus B RNA [Presence] in Unsp ecified specimen by Probe and target amplification method Laboratory test result [facility] ([facility]) ID Date Data Source [id number] 12/02/2020 05:19:00 PM EST [facility] ([facility]) Name Value Range Interpretation Code Description Data Valentina rce(s) Supporting Document(s) Sars-CoV-2, Susu Laboratory test result Abnormal (applies to non-numeric results) [facility] ([facility]) This nucleic acid amplification test was developed and its performance characteristics determined by [employer]. Nucleic acid amplification tests include RT-PCR and [...] negative (not detected) result in this assay. Laboratory test finding (navigational concept) Laboratory test result [facility] ([facility]) ID Date Data Source [id number] 12/02/2020 05:19:00 PM EST [facility] Name Value Range Interpretation Code Description Data Valentina rce(s) Supporting Document(s) SARS coronavirus 2 RNA Detected [facility] This lab was ordered by [facility] hood and reported by [employer]. ID Date Data Source [id number] 12/04/2020 04:08:00 PM EST [facility] Name Value Range Interpretation Code Description Data Valentina rce(s) Supporting Document(s) SARS-CoV-2, SUSU Detected Not Detected [facility] This nucleic acid amplification test was developed and its performancecharacteristics determined by [employer]. Nucleic acidamplification tests include RT-PCR and TMA. This test has not beenFDA cleared or approved. This test has been authorized by FDA underan Emergency Use Authorization (EUA). This test is only authorizedfor the duration of time the declaration that circumstances existjustifying the authorization of the emergency use of in vitrodiagnostic tests for detection of SARS-CoV-2 virus and/or diagnosisof COVID-19 infection under section 564(b)(1) of the Act, 21 U.S.C.360bbb-3(b) (1), unless the authorization is terminated or revokedsooner.When diagnostic testing is negative, the possibility of a falsenegative result should be considered in the context of a patient'srecent exposures and the presence of clinical signs and symptomsconsistent with COVID- 19. An individual without symptoms of COVID-19and who is not shedding SARS-CoV-2 virus would expect to have anegative (not detected) result in this assay. ORDER COVID 19 2 DAY YES [facility] ID Date Data Source [id number] 12/02/2020 05:19:00 PM EST [facility] ([facility]) Name Value Range Interpretation Code Description Data Valentina rce(s) Supporting Document(s) Laboratory test finding (navigational concept) Laboratory test result [facility] ([facility]) ID Date Data Source [id number] 11/26/2020 02:33:16 PM EST [facility] Name Value Range Interpretation Code Description Data Valentina rce(s) Supporting Document(s) Progress Note [facility] KXTPRf9dRlEEZfPc56/XTOzjAJHdr3WrCVmdQEl6IHbmKOAaZ9BzKWG8dU6fFFE8ZJeDVaFjDkKxJMG5 [facility] [file] [id number]= ID Date Data Source [id number] 11/18/2020 02:06:26 PM [facility] Name Value Range Interpretation Code Description Data Valentina rce(s) Supporting Document(s) Progress Note [facility] UIHGCp6hAbRRAdZn63/LESnvKRCij1YzFGqjNYp2ZNojIHXeH3MpJRU2xH1yULA0WMqROqPqUkOiOIRn lbm [file] [id number]= ID Date Data Source [id number] 11/18/2020 02:05:56 PM [facility] Name Value Range Interpretation Code Description Data Valentina rce(s) Supporting Document(s) Progress Note [facility] BYVSJe4tOxYJDtEt68/PZYhnIOZnb9FcIFhoQBt2MBghZRRgV0MtIXB4zG7nMJN4LXtQSjPzUyUiYSVz lbm [file] [id number]Y3WTOz= ID Date Data Source [id number] 11/18/2020 04:26:00 PM [facility] CYTOPATHOLOGY REPORTName: AIDAN ACUÑAMRN: [id number] Number: [id number] Date: 11/15/2020 00:00Received Date: 11/15/2020 12:24Physician(s): SANDRA HUBBARD MD DHIR, MASHAAL, MD Copy To:WIL COOMBSpeckeri(s) ReceivedA: PANCREATIC HEAD MASS, FINE NEEDLE ASPIRATION, CONSULTATION ([id number])10/28/2020Clinical History:50 year old male with a 4.5 cm pancreatic head mass and multiple livernodule. Pancreatic FNA performed 10/28/20, evaluated at [facility], submitted for consultation.DiagnosisPANCREATIC HEAD MASS, FINE NEEDLE ASPIRATION, CONSULTATION ([id number])10/28/2020: POSITIVE FOR MALIGNANCY, ADENOCARCINOMAComment/cts/calReviewing Cyt[employer]: NICK Pereira(ASCP) (IAC)Jh Melgar M.D.Electronically Signed By Roxane Dickinson M.D. 11/18/2020 16:26:04The attending pathologist named above attests that he/she has personallyreviewed the relevant preparation(s) for the specimen(s) and rendered thefinal diagnosis. Microscopic DescriptionThree cell block levels submitted showing malignant cells with variablysized, hyperchromatic nuclei, nucleoli and high nuclear to cytoplasmicratios forming glands. There are also areas of fibrosis. Cytospin slidesshow rare similar cells. Immunostains submitted show that the malignantcells are positive for cytokeratin AE1/3, cytokeratin 19 and CA19-9; andare negative for neuroendocrine stains, chromogranin and synaptophysin./cts Gross DescriptionReceived 14 slides labeled "[id number], Aidan Acuña" with correspondingpathology report for consult from [facility],[place] [address] .This report may include one or more immunohistochemical stain results thatuse analyte specific reagents. All positive and negative controls havebeen reviewed by the attending pathologist and are satisfactory. The testswere developed and their performance characteristics determined by [facility] Pathololgy department. They have not been cleared or approved by [place] Food and Drug Administration. The FDA has determined that suchclearance or approval is not necessary. Name Value Range Interpretation Code Description Data Valentina rce(s) Supporting Document(s) ID Date Data Source [id number] 10/28/2020 09:23:43 AM EST [facility] NT INFORMATIONPatient MRN Name Date of Age Gend*PT [id number] Aidan Acuña 1970 50 years M OPPT Location Admission Date/Time Visit ID Attending ProviderEndo [place] 10/28/20 0702 --- Ted Coombs DO([id number]) EPI ID CSN Admitting Provider [id number] Ted Coombs DO([id number])Endoscopic Gastroduodenoscopy with Endoscopic Ultrasound Procedure NotePatient: Aidan Gutierrez DowningSurgery Date: October 28, 2020Surgeon(s):ANAM Rodriguezre-Operative Diagnosis: Bile duct stricturePost-Op Diagnosis Codes: * Pancreatic mass [K86.89]: a 4.5 cm pancreatic head mass * Fatty liver [K76.0]: Numerous small < 1 cm hypoechoic lesions thru out theliver, worrisome for metastatic leisonsRecommendations:1. Await pathology2. Proceed with PET scan tomorrow to look for metastatic disease.Procedure(s):U LTRASOUND, UPPER GASTROINTESTINAL (GI) TRACT, ENDOSCOPIC WITH FNASedation: Monitored Anesthesia Care (MAC) (see anesthesia report).ASA Class: IIIOther Equipment Type Equipment Setting Setting Low Setting High Applied By Endoscope Ted Coombs DO ERCP Scope (ENDO) Radial Endoscope Ultrasound (ENDO) Linear Endoscope Ultrasound (ENDO) Endoscopic Ultrasound MachineConsent:After obtaining history and performing the physical examination, the procedure,indications, potential complications, including but not limited to bleeding,perforation, infection, adverse medication reaction, and alternatives wereexplained to the patient. Patient appeared to understand the benefits and risksof this procedure. Informed consent was obtained from the patient afterproviding opportunity for questions.Procedure Details:The gastroscope was inserted into the mouth and advanced under directvisualization to second portion of the duodenum. A careful inspection was madeas the gastroscope was withdrawn, including a retroflexed view of the proximalstomach. Subsequently, Pentax radial and then linear echo endoscope wasinserted into the mouth and advanced to the second portion of the duodenum.After completion of the examination, the patient was transferred to the recoveryroom.* No implants in log *Endoscopic Findings:Antrum: Mild erythematous gastropathyDuodenum 2nd Portion: A recently placed metallic biliary stent is in goodplacementEUS Findings:Mediastinum: Small pericardial effusion. Several small (< 1 cm) lymph nodes at32 cm. No posterior mediastinum massCeliac Region: No adenopathyPancreas: Appeared abnormal and heterogenous. The main PD is measured 2.4 mmin the body of pancreas. No peripancreatic adenopathy or fluid collection.There is a 4.5 cm hypoechoic pancreatic head mass. The metallic stent createdacoustic artifactss and I was not able to visualize adjacent vasculature.Pentax linear array echoendoscope was used to obtain FNB from the pancreatichead mass. Projected needle track was scanned with doppler to avoid puncture ofintervening blood vessels. Using a 22 gauge [employer] Acquired EUSaspiration needle, two needle passes were made. Specimen was sent for cytologyand flow cytometry.Stom ach: Normal; no perigastric/gastrohepatic ligament adenopathy. Noperigastric fluid collection or ascitesHepatobiliary: Metallic wall stent in placedAmpulla: NormalLiver: Diffusely hyperechoic and has numerous small round (4-5 mm) hypoechoiclesionsSpecimens:ID Type Source Tests Collected by Time Destination1 : Pancreatic fluid for interpace testing Pancreatic Fluid FNA MISCELLANEOUSLAB TEST Ted Coombs DO 10/28/2020 0847A : Tissue [facility], LEUKEMIA / LYMPHOMA PHENOTYPE, SURGICAL PATHOLOGYEXAM Ted Coombs DO 10/28/2020 0848B : Tissue Biopsy SURGICAL PATHOLOGY EXAM Ted Coombs DO 10/28/2020 0847Complications: None; patient tolerated the procedure well.Estimated Blood Loss: noneTed Coombs DO10/28/20209:05 AM Name Value Range Interpretation Code Description Data Valentina rce(s) Supporting Document(s) ID Date Data Source [id number] 10/30/2020 11:20:51 AM EST [facility] Name Value Range Interpretation Code Description Data Valentina rce(s) Supporting Document(s) SOURCE (RESOE) [facility] PANCREATIC HEAD MASS RESULT [facility] PERFORMING LAB [facility] [address] [place] [address] ID Date Data Source [id number] 10/28/2020 08:15:18 AM EST [facility] HospitalPATIE NT INFORMATIONPatient MRN Name Date of Age Gend*PT [id number] Denisha Aidan L 1970 50 years M OPPT Location Admission Date/Time Visit ID Attending ProviderEndo [place] 10/28/20 0702 --- Ted Coombs DO([id number]) EPI ID CSN Admitting Provider [id number] Ted Coombs DO([id number])HISTORY AND PHYSICALGail L DowningMRN: [id number]: Bile duct stricturePLAN:1. Proceed with EUS exam of the pancreas to rule out a pancreatic head cancerHPI: Patient presents today for an EUS exam of the pancreas. He developedpainless jaundice and a recent outpatient ERCP found a distal CBD stricture.Allergies:Patient has no known drug allergies.Medications:Medications Prior to AdmissionMedication Sig Dispense Refill Last Dose acetaminophen (TYLENOL) 500 MG tablet Take 1,000 mg by mouth every 4 (four)hours 10/27/2020 at 1400 albuterol (PROVENTIL HFA;VENTOLIN HFA) 108 (90 Base) MCG/ACT inhaler Inhale 2puffs every 4 (four) hours as needed for wheezing 10/27/2020 at 1400 Alogliptin Benzoate 25 MG TABS Take 1 tablet by mouth daily 10/27/2020 [id number] gabapentin (NEURONTIN) 100 MG capsule Take 100 mg by mouth 3 (three) times aday 10/27/2020 at 1830 glipiZIDE (GLUCOTROL) 10 MG tablet Take 10 mg by mouth 2 (two) times a daybefore meals 10/27/2020 at 0800 hydrOXYzine (ATARAX) 50 MG tablet Take 50 mg by mouth every 6 (six) hours asneeded for anxiety 10/27/2020 at 0800 Insulin Glargine (BASAGLAR KWIKPEN) 100 UNIT/ML SOPN Inject 12 Units under theskin daily 10/27/2020 at 1100 lisinopril (PRINIVIL,ZESTRIL) 10 MG tablet Take 10 mg by mouth daily10/27/2020 at 0800 PARoxetine (PAXIL) 10 MG tablet Take 10 mg by mouth every morning 10/27/2020at 0800 pioglitazone (ACTOS) 15 MG tablet Take 15 mg by mouth daily 10/27/2020 [id number] Medical History:Past Medical History:Diagnosis Date Asthma Diabetes mellitus Fatty liver Hemochromatosis Hyperlipidemia Hypertension Morbid obesity Non Hodgkin's lymphoma dx 2010 s/p radiation - Dr. Faby Lambert Pancreas cystPast Surgical History:Past Surgical History:Procedure Laterality Date ADENOIDECTOMY CHOLECYSTECTOMY COLONOSCOPY LITHOTRIPSY LYMPH NODE DISSECTION Left neck PANENDOSCOPY TONSILLECTOMYFamily History:Family HistoryProblem Relation Age of Onset Healthy, No Significant History Mother Pancreatic cancer Father Stroke Father Malig Hyperthermia Neg HxSocial History:Social HistoryTobacco Use Smoking status: Former Smoker Packs/day: 0.50 Years: 20.00 Pack years: 10.00 Types: Cigarettes Last attempt to quit: 2007 Years since quittin.9 Smokeless tobacco: Current User Types: ChewSubstance Use Topics Alcohol use: Not Currently Drug use: NeverReview of Systems:Const: Denies constitutional symptoms.Eyes: Denies eye symptoms.ENMT: Denies ear symptoms. Denies nasal symptoms. Denies mouth or throatsymptoms.CV: Denies cardiovascular symptoms.Resp: Denies respiratory symptoms.GI: Denies gastrointestinal symptoms.: Denies genitourinary symptomsMusculo: Denies musculoskeletal symptoms.Skin: Denies skin , hair and nail symptoms.Breast: Denies breast problems.Neuro: Denies neurologic symptoms.Psych: Denies psychiatric symptoms.Endocrine: Denies endocrine symptoms.Vernon/Lymph: Denies hematologic symptoms.Physical Exam:Temp: [98.5 F] 98.5 FHeart Rate: [91] 91Resp: [20] 20BP: (128)/(79) 128/79Const: Appeared healthy and well developed. No signs of apparent distresspresent.Head/Face: Atraumatic, normocephalic on inspection.Eyes: Conjunctivae clear. Sclerae clear and anicteric.Resp: Auscultate good airflow. Lungs are clear bilaterally.CV: Rate is regular by auscultation. Rhythm is regular. S1 is normal. S2 isnormal. No heart murmur appreciated. Pedal pulses: 2+ and equal bilaterally.Extremities: No clubbing, cyanosis or edema.Abdomen: Abdomen is soft, nontender, and nondistended without guarding, rigidityor rebound tenderness. No pulsatile masses present.Signature: Elva Rodriguez: October 28, 2020Time: 8:13 AM Name Value Range Interpretation Code Description Data Valentina rce(s) Supporting Document(s) ID Date Data Source [id number] 10/28/2020 07:40:41 AM EST [facility] Name Value Range Interpretation Code Description Data [facility] rce(s) Supporting Document(s) POC NOVA GLU 202 mg/dL (70-99) H Lab [facility]FOR[facility] ID Date Data Source [id number] 10/31/2020 05:49:51 PM EST [facility] LABORATORY [address] [address]Xlo# MISCELLANEOUS CYTOLOGY REPORTAccession Number: [id number] of Specimen(s): A: Pancreas Mass Aspirate Head FNAClinical Diagnosis and History: 4.5 cm pancreatic mass and multiple livernodulesGross DescriptionPancreas Mass Aspirate Head FNA: Received in Saccomanno fixative with acell block. RPMI specimen sent out for flow 10/28/2020.Final DiagnosisSpecimen AdequacySatisfactoryFinal DiagnosisPOSITIVE FOR MALIGNANCYModerately differentiated adenocarcinoma. See comment.COMMENT: As best seen on the cell block are atypical crowded glands andfocal small sheets of atypical/malignant appearing cells. The carcinomais highlighted by immunostaining for cytokeratin AE1/3, cytokeratin 19 hssQQ87-4. A mucin stain highlights a rare mucin vacuole. Theneuroendocrine markers synaptophysin and chromogranin are negative. Processed and screened at [facility],Cytology, [address] [place] [address], [id number].As applicable, positive and negative controls for all immunohistochemicaland/or special stains were reviewed and considered appropria te. Reported: 10/31/2020Electronically Signed Out By Jamey Tam MDSt. [facility] PatholoCytotechnologist: Dennise Moffett CT(ASCP)[facility]mwgICD code: K87CPT code: A: 62866Z, 42111G, 35387w, 35426(4), 25424B Name Value Range Interpretation Code Description Data Valentina rce(s) Supporting Document(s) ID Date Data Source [id number] 10/24/2020 11:03:20 AM EST [facility] Name Value Range Interpretation Code Description Data Valentina rce(s) Supporting Document(s) EKG [facility] [id number]whzt4P0C6kAAbX6FoeGImu2bhY0GbN3HeFIFqFTDBFE8DdBBt jb2 [file] rEOleDC2W+front office manager+2HQGl1twTtBa4TE3oF3VHBHtmfAa [file] [id number]+OlS2IDF1wLZlVpl2BeF9LwyrGGQBFk== ID Date Data Source [id number] 10/26/2020 01:37:45 PM EST [facility] Name Value Range Interpretation Code Description Data Valentina rce(s) Supporting Document(s) SARS-COV-2 SUSU [facility] Reference range: NOT DETECTED The refere nce interval for this assay is Negative. A negative result does not rule out the presence of PCR inhibitors in the patient specimen, specimen collection errors or assay specific nucleic acid in concentrations below the limit of detection by the assay. This laboratory is regulated under the Clinical Laboratory Improvement Amendment (CLIA) of 1988 as qualified to perform high complexity clinical testing. This test is used for clinical purposes. It should not be regarded as investigational or for research. Laboratory specimens were analyzed for COVID-19 using rev bhwn-euzslfkjsdxfx-Wfqa time PCR (jewelry casting model maker-PCR) using primer and probe sequences validated by the Centers for Disease Control (CDC) under the Emergency Use Authorization for Coronavirus Disease-2019 (EUA). This test has been validated as a laboratory developed test in accordance with the FDA's Guidance Document (Policy for Diagnostics Testing in Laboratories Certified to Perform High Complexity Testing under CLIA prior to Emergency Use Authorization for Coronavirus Disease-2019 during the Public Health Emergency) issued on January 06, 2020. FIRST TEST [facility] [employer] SYMPTOMATIC [facility] DATE OF SYMPT ONSET [facility] H[facility]PITALIZED [facility] ID ICU [facility] CONGREGATE CARE SET [facility] ID Date Data Source [id number] 10/24/2020 09:05:00 AM EST [facility] Name Value Range Interpretation Code Description Data Valentina rce(s) Supporting Document(s) SARS coronavirus 2 RNA [Presence] in Res piratory specimen by SUSU with probe detection [facility] This lab was ordered by [facility] and reported by [employer]. ID Date Data Source [id number] 10/24/2020 12:56:45 PM EST [facility] Name Value Range Interpretation Code Description Data Valentina rce(s) Supporting Document(s) HEMOGLOBIN A1C @ 8.4 % (4.0-6.0) H [facility] Performed using Siemens Gary immunoassa y.Care must be taken when interpreting BlQ4wwhqctet in patients with a hemoglobin variantor decreased erythrocyte lifespan. Values 5.7 - 6.4% suggest prediabetes.Values >=6.5% are diagnostic for diabetes.REFERENCE: DIABETES CARE 2018: 41(S13-S27). EST AVERAGE GLUCOSE 194 mg/dL [facility] ID Date Data Source [id number] 10/24/2020 12:07:53 PM EST [facility] Name Value Range Interpretation Code Description Data Valentina rce(s) Supporting Document(s) SODIUM 140 mmol/L (136-145) [facility] POTASSIUM 3.8 mmol/L (3.6-5.2) [facility] CHLORIDE 106 mmol/L (100-108) [facility] CO2 25 mmol/L (22-31) [facility] ANION GAP 9 mmol/L (7-16) [facility] UREA NITROGEN 8 mg/dL (7-24) [facility] CREATININE 0.66 mg/dL (0.80-1.30) L [facility] BUN/CREAT RATIO 12.1 RATIO (10.0-20.0) [facility] GLUCOSE 186 mg/dL (70-99) H [facility] CALCIUM 8.6 mg/dL (8.4-10.2) [facility] GFR >60 ml/min/1.73m2 (>59) [facility] GFR ( AMER) >60 ml/min/1.73m2 (>59) [facility] GFR INTERPRETATION [facility] --NORMAL KIDNEY FUNCTION OR MILD DISEASE - GFR >OR= 60CHRONIC KIDNEY DISEASE - GFR 15 - 59RENAL FAILURE - GFR <15 Est. GFR calculation based on the MDRDstudy equation, which assumes a steadystate for creatinine. Est. GFR should notbe used for medication dosing. ID Date Data Source [id number] 10/24/2020 08:43:31 AM EST [facility] HospitalPATIE NT INFORMATIONPatient MRN Name Date of Age Gend*PT [id number] Aidan Acuña 1970 50 years M OPPT Location Admission Date/Time Visit ID Attending Provider --- --- --- Ted Coombs DO([id number]) EPI ID CSN Admitting Provider [id number] ---OUTPATIENT / OBSERVATIONAL SURGICAL OR INVASIVE PROCEDUREName: Aidan Acuña : 1970 Sex: male Care Provider: Radha Forman Physician: Dr. CoombsHISTORY OF PRESENT ILLNESS: Mr Acuña is a 50 years old white male with historyof morbid obesity, hypertension, hyperlipidemia, hemochromatosis,insulin-dependent diabetic, fatty liver, and non-Hodgkin lymphoma who had anepisode of nausea vomiting and obstructive jaundice back in September 2020.Abdominal ultrasound dated 10/02/2020 showing a mass in the head of the pancreasapproximately 3 to 4 cm in diameter. He underwent ERCP on 10/02/2020 showed alocalized biliary stricture. Jaundice has resolved. He denies any furtherepisode of nausea vomiting, or bowel dysfunction. He does have intermittentabdominal bloating. Patient now has elected to undergo EBUS for furtherevaluation and treatment plans.PAST MEDICAL HISTORY:Past Medical History:Diagnosis Date Asthma Diabetes mellitus Fatty liver Hemochromatosis Hyperlipidemia Hypertension Morbid obesity Non Hodgkin's lymphoma dx 2010 s/p radiation - Dr. Faby Lambert Pancreas cystPAST SURGICAL HISTORY:Past Surgical History:Procedure Laterality Date ADENOIDECTOMY CHOLECYSTECTOMY COLONOSCOPY LITHOTRIPSY LYMPH NODE DISSECTION Left neck PANENDOSCOPY TONSILLECTOMYALLERGIES: No Known Drug AllergiesMEDICATIONS:Prior to Admission medicationsMedication Sig Start Date End Date Taking? Authorizing Provideracetaminophen (TYLENOL) 500 MG tablet Take 1,000 mg by mouth every 4 (four)hours Historical Provider, Eriklbuterol (PROVENTIL HFA;VENTOLIN HFA) 108 (90 Base) MCG/ACT inhaler Inhale 2puffs every 4 (four) hours as needed for wheezing Historical Provider, ERIKlogliptin Benzoate 25 MG TABS Take 1 tablet by mouth daily HistoricalProvider, gabapentin (NEURONTIN) 100 MG capsule T dotty 100 mg by mouth 3 (three) times a dayHistorical Provider, glipiZIDE (GLUCOTROL) 10 MG tablet Take 10 mg by mouth 2 (two) times a daybefore meals Historical Provider, hydrOXYzine (ATARAX) 50 MG tablet Take 50 mg by mouth every 6 (six) hours asneeded for anxiety Historical Provider, Insulin Glargine (BASAGLAR KWIKPEN) 100 UNIT/ML SOPN Inject 12 Units under theskin daily Historical Provider, lisinopril (PRINIVIL,ZESTRIL) 10 MG tablet Take 10 mg by mouth dailyHistorical Provider, SAPNAARoxetine (PAXIL) 10 MG tablet Take 10 mg by mouth every morning HistoricalProvider, MDpioglitazone (ACTOS) 15 MG tablet Take 15 mg by mouth daily HistoricalProvider, MDSocial HistoryTobacco Use Smoking status: Former Smoker Packs/day: 0.50 Years: 20.00 Pack years: 10.00 Types: Cigarettes Last attempt to quit: 2007 Years since quittin.9 Smokeless tobacco: Current User Types: ChewSubstance Use Topics Alcohol use: Not Currently Drug use: NeverFamily HistoryProblem Relation Age of Onset Healthy, No Significant History Mother Pancreatic cancer Father Stroke Father Malig Hyperthermia Neg HxREVIEW OF SYSTEMS:Respiratory: Denies any shortness of breath, cough, yellow sputum production orwheezing.Cardiovascular: Denies any chest pain, pressure or tightness. Denies anyparoxysmal nocturnal dyspnea or orthopnea.GI: Denies nausea, vomiting, diarrhea, constipation or melena.Neurologic: Denies any numbness, tingling, tremors or syncope.Vascular: Denies any edema. Denies claudication.PHYSICAL EXAM:GENERAL: He is a 50 years old, pleasant white male, in no acute distress at timeof examination. Vitals on arrival to the office are BP 134/73 (BP Location: Leftupper arm, Patient Position: Sitting) | Pulse 100 | Ht 1.727 m (5' 8") | Wt(!) 137.2 kg (302 lb 6.4 oz) | SpO2 94% | BMI 45.98 kg/m Body mass index is45.98 kg/m ..Skin is pink, warm, and dry.NECK: He has a grade I airway. Neck is supple, midline, without cervicaladenopathy. No thyromegaly. No carotid bruits.MENTAL / NEUROLOGICAL STATUS: [id number]: Clear to auscultation. No wheezes, rhonchi or crackles.HEART: Rate rhythm regular. S1, S2. No murmur, rub or gallop.ABDOMEN: Morbidly obese. Bowel sounds positive times four. Soft, non tender. Norebound tenderness. No hepatosplenomegaly. Negative CVAT.EXTREMITIES: Pulses are symmetrical. No edema.Anesthesia complications: DeniesCS Frailty Scale :: 3/10 Managing Well (medical problems are well controlled,but are not regularly active beyond routine walking).Stop Bang Questionnaire - Total Score:STOP-Bang Total Score: 5ASSESSMENT: Primary Diagnosis/Indication: Other specified disease of pancreas.PLAN: Procedure: Mr Acuña is a 50-year-old male who was recently found to havepancreatic mass in the head of the pancreas. He now has elected to undergoULTRASOUND, UPPER GASTROINTESTINAL (GI) TRACT, ENDOSCOPIC on 8:34 Corine Springer document or parts of this document, were dictated using [employer] speaking software. A reasonable attempt at proofreading has beenmade to minimize errors. Please call with any questions or corrections.* Name Value Range Interpretation Code Description Data Valentina rce(s) Supporting Document(s) ID Date Data Source [id number] 10/11/2020 05:39:00 PM [facility] Surgical Pathology ReportName: AIDAN ACUÑAMRN: [id number] Number: [id number] Date: 10/09/2020 00:00Received Date: 10/09/2020 12:44Physician(s): KARON VENTURA MD VYAS, SHIKHAR G,THERONpecimen(s) ReceivedA: Material received for consultation DZClinical HistorySecond opinion.DiagnosisOUTSIDE CASE [id number], 10/02/20:DUODENUM, EROSIONS, BIOPSY: MUCOSAL EROSIONS WITH FOCI OF ATYPICALGLANDS. (See Microscopic Description).Electronically Signed By Isaac Dobbins M.D., Attending Mttqiuvwsik93/4/2020 17:39:48 Gross [facility] [place], [place], are 1 H and Estained slide and 1 paraffin block, labeled [id number], with thecorresponding pathology report. Also received: Report of Operation, dated 10/02/2020.Microscopic DescriptionSections show duodenal mucosa with foci of mildly atypical glandssurrounded by clefting. [facility] of [facility]. [facility] for CD31 and D2-40 do not show obvious epithelial cells withinvessels. I agree that the findings are concerning for malignancy, howeverthey are not entirely diagnostic. Thank you for sending this case inconsultation. This report may include one or more immunohistochemical stain results thatuse analyte specific reagents. All positive and negative controls havebeen reviewed by the attending pathologist and are satisfactory. The testswere developed and their performance characteristics determined by [facility] Pathology department. They have not been cleared or approved by the USFood and Drug Administration. The FDA has determined that such clearanceor approval is not necessary. Name Value Range Interpretation Code Description Data Valentina rce(s) Supporting Document(s) ID Date Data Source [id number] 09/29/2020 10:10:00 AM EST [facility] 1 OrderSheet [facility] Emergency Department [address] [place] [address] Phone #: ext- [phone] 09/29/2020 10:06 [id number] Sex: M : 1970 Age: 50yWEIGHT:136.0 kg (S) HEIGHT:69 inches (S) BMI:44.3ALLERGIES: No Known Drug AllergyCHIEF COMPLAINT: abdominal pain, vomiting, nausea, crampsDIAGNOSIS: Urinary tract infectious disease, Pancreatitis, Inflammatory disease of liverLAB ORDERSOrder Description Priority Entered Acknowledged InitialedUrinalysis (Clean STAT 10:32 09/29/2020 12:15 [place] [facility] clip bolter and wrapper, [place] ER Physician; [id number] STAT 10:32 09/29/2020 10:33 [facility] clip bolter and wrapper, [place] ER Physician; [id number] STAT 10:32 09/29/2020 10:33 [facility] clip bolter and wrapper, [place] ER Physician; [id number] Acid STAT 10:32 09/29/2020 10:33 [facility] clip bolter and wrapper, [place] ER Physician; [id number] STAT 10:32 09/29/2020 10:33 [facility] clip bolter and wrapper, [place] ER Physician; [id number]/INR STAT 10:32 09/29/2020 10:33 [facility] clip bolter and wrapper, [place] ER Physician; [id number] STAT 10:32 09/29/2020 10:33 [facility] clip bolter and wrapper, [place] ER Physician; [id number] w Diff STAT 10:32 09/29/2020 10:33 [facility] ED Te ch, [place] ER Physician; [id number] STAT 10:32 09/29/2020 10:33 [facility] clip bolter and wrapper, [place] ER Physician; [id number], Urine STAT 10:32 09/29/2020 12:15 [place](Urine, Clean [facility] clip bolter and wrapper, [place] ERCatch) Physician; Tech1 2 OrderSheet [facility] Emergency Department [address] [place] [address] Phone #: ext- [phone] 09/29/2020 10:06 Patient: AIDAN ACUÑA Sex: M : 1970 Age: 50yDIAGNOSTIC STUDY ORDERSOrder Description Priority Entered Acknowledged InitialedCT Abd PEL W/ IV STAT 10:34 09/29/2020 10:49 DorisContrast Only Tai Horta RN(Oxygen?(No)) Physician;(IV?(Yes)) Reason for Study: Abdominal Pain, VomitingCT CTA CHEST STAT 10:34 09/29/2020 10:49 Loraine(NONCOR) W CON Tai Horta RNINC PP Physician;(Oxygen?(No))(IV?(Yes)) Reason for Study: Lower chest pain / NHL in neck / possible mets /MEDICATION/IV/DRIP/FLUID ORDERSOrder Description Priority Entered Acknowledged InitialedIV NS : Bolus 1000 10:32 09/29/2020 10:47 DorismL, then 125 mL/hr Tai Horta RN(can be titrated per Physician;additionalphysicianinstruction)Protonix IVPB 40 10:32 09/29/2020 10:48 Dorismg with Dextrose Tai Horta RN100 ml spike bag Physician;(D5W)Zofran 4 mg IVP X 1 10:32 09/29/2020 10:49 Dorisdose: 4 mg (NOW Tai Horta RNx1) Physician;Morphine IVP 2 mg 10:52 09/29/2020 11:00 Loraine(NOW, HIGH ALERT Tai Horta RNMEDICATION) Physician;Rocephin 13:33 09/29/2020 14:04 Loraine(1gm/50mL) IVPB Tai Horta [id number] mg with Physician;Dextrose 50 mlspike bag (D5W)Morphine IVP 2 mg 13:48 09/29/2020 14:05 Loraine(NOW, HIGH ALERT Tai Horta RNMEDICATION) Physician;GENERAL ORDERSOrder Description Priority Entered Acknowledged Initialed 3 OrderSheet [facility] Emergency Department [address] [place] [address] Phone #: ext- [phone] 09/29/2020 10:06 Patient: AIDAN ACUÑA Sex: M : 1970 Age: 50yCardiac Monitor 10:32 09/29/2020 10:33 Marie(continuous) Tai Schaefer clip bolter and wrapperPor[place] ER Physician; [id number] 10:32 09/29/2020 10:33 Marie Schaefer clip bolter and wrapperPorfirio ER Physician; [id number] Lock 10:32 09/29/2020 10:33 Loraine Horta RN Physician;Pulse oximeter 10:32 09/29/2020 10:33 Marie(Spot Check) Tai Schaefer clip bolter and wrapperPorfirio Physician; Tech1[Electronically signed by Loraine Horta RN (14:09/29/2020)][Electronically signed by Tai Schaefer Physician (20:11 )][Electronically locked by Loraine Horta RN (09/29/2020)] Name Value Range Interpretation Code Description Data Valentina rce(s) Supporting Document(s) ID Date Data Source [id number] 09/29/2020 10:10:00 AM EST [facility] 1 Medication Reconciliation Report [facility] Emergency Department [address] [place] [address] Phone #: [phone]- [phone] 09/29/2020 10:06 Patient: AIDAN ACUÑA Sex: M : 1970 Age: 50yWeight: 136.0 kgHeight/Length: 69 in.BMI: 44.3ALLERGIES: No Known Drug AllergyThe patient's Home Medications are listed below:THE FOLLOWING MEDICATIONS NEED TO BE RECONCILED: Alogliptin-Pioglitazone Oral (25-15 mg) 1 tablet, daily Atorvastatin Calcium Oral 20 mg, daily Gabapentin Oral 100 mg, q8h Glipizide Oral (10 mg) 1 tablet, 2x a day Lisinopril Oral 10 mg, daily Paxil Oral (10 mg) 1 tablet, daily Pioglitazone HCl Oral 15 mg, dailyThe source(s) of the original Home Medication information:patientThe following Medications were given to the patient in the Emergency Department:IV NS IV Fluids bolus 1000 mL over 1 hour(s), then 1000 mL/hr, administered: 09/29/2020 10:42:00 AMProtonix [IVPB] IVPB bolus 0, then 40 mg 200 mL/hr, administered: 09/29/2020 10:43:00 AMZofran [IVP] IVP 4 mg, administered: 09/29/2020 10:42:00 AMMorphine [IVP] IVP 2 mg diluted in NS 10 mL, administered: 09/29/2020 10:55:00 AMROCEPHIN (1GM/50ML) [IVPB] IVPB bolus 0, then 1 gm 100 mL/hr, administered: 09/29/2020 1:43:00 PM 2 Medication Reconciliation Report [facility] Emergency Department [address] [place] [address] Phone #: ext- [phone] 09/29/2020 10:06 Patient: AIDAN ACUÑA Sex: M : 1970 Age: 50yMorphine [IVP] IVP 2 mg diluted in NS 10 mL, administered: 09/29/2020 1:43:00 PMIV NS IV Fluids bolus 0, then 125 mL/hr, administered: 09/29/2020 12:34:00 PMThe following Medications were prescribed to the patient:None. Name Value Range Interpretation Code Description Data Valentina rce(s) Supporting Document(s) ID Date Data Source [id number] 09/29/2020 10:10:00 AM EST [facility] 1 Medication Administration Record [facility] Emergency Department [address] [place] [address] Phone #: [phone]- [phone] 09/29/2020 10:06 Patient: AIDAN ACUÑA Sex: M : 1970 Age: 50yWeight: 136.0 kgHeight/Length: 69 inBMI: 44.3ALLERGIES: No Known Drug Allergy Date/Time Medication Administered Medication OrderedStart IV NS IV NS : Bolus 1000 mL, then 55064:42 09/29/2020 Dose: IV Fluids mL/hr (can be titrated Víctor Horta RN Rate: 1000 mL/hr over 1 hour(s) additional physician instruction)---- Bolus: 1000 mL over 1 hour(s)Stop Dispensed: 1000 mL bag12:34 09/29/2020 Site: #1 left forearmTariq Henderson IV NS IV NS : Bolus 1000 mL, then 75214:34 09/29/2020 Dose: IV Fluids mL/hr (can be titrated Víctor Horta RN Rate: 125 mL/hr over 8 hour(s) additional physician instruction)---- Dispensed: 1000 mL bagContinued Upon Transfer Site: #1 left odevklr56:17 09/29/2020Traiq Henderson PROTONIX [IVPB] (PANTOPRAZOLE Protonix IVPB 40 mg with10:43 09/29/2020 SODIUM) Dextrose 100 ml spike bag (D5W)Loraine Horta RN Dose: 40 mg IVPB---- Rate: 200 mL/hr over 30 minute(s)Stop Dispensed: 100 mL bag11:13 09/29/2020 Site: #1 left forearmLoraine Horta RNGiven ZOFRAN [IVP] (ONDANSETRON HCL) Zofran 4 mg IVP X 1 dose: 4 mg10:42 09/29/2020 Dose: 4 mg IVP (NOW x1)Loraine Horta RN Site: #1 left forearmGiven MORPHINE [IVP] Morphine IVP 2 mg (NOW, HIGH10:55 09/29/2020 Dose: 2 mg IVP ALERT MEDICATION)Loraine Horta RN In: NS 10 mL Site: #1 left forearmStart ROCEPHIN (1GM/50ML) [IVPB] Rocephin (1gm/50mL) IVPB 168772:43 09/29/2020 (CEFTRIAXONE SODIUM) mg with Dextrose 50 ml spike Bernardo Horta RN Dose: 1 gm IVPB (D5W)---- Rate: 100 mL/hr over 30 minute(s)Continued Upon Transfer Dispensed: 50 mL bag14:15 09/29/2020 Site: #1 left Tiffany Horta RNGiven MORPHINE [IVP] Morphine IVP 2 mg (NOW, HIGH13:43 09/29/2020 Dose: 2 mg IVP ALERT MEDICATION)Loraine Horta RN In: NS 10 mL Site: #1 left forearm Name Value Range Interpretation Code Description Data Valentina rce(s) Supporting Document(s) ID Date Data Source [id number] 09/29/2020 10:10:00 AM EST [facility] 1 General Instructions [facility] Emergency Department [address] [place] [address] Phone #: ext- [phone] 09/29/2020 10:06 Patient: AIDAN ACUÑA Sex: M : 1970 Age: 50yAcute biliary pancreatitis (Severe, Possibly drug- induced). No pseudocyst, abscess or hyperlipidemia.Acute drug-induced hepatitis. No ascites, hepatic encephalopathy or coma.Acute urinary tract infection with cystitis. No hematuria. Not associated with indwelling catheter orobstructio n.(Acute obstructive jaundice).(Electronically signed by Tai Schaefer, Physician 09/29/2020 20:11) Name Value Range Interpretation Code Description Data Valentina rce(s) Supporting Document(s) ID Date Data Source [id number] 09/29/2020 10:10:00 AM EST [facility] 1 Clinical Report - Nurses [facility] Emergency Department [address] [place] [address] Phone #: ext- [phone] 09/29/2020 10:06 Patient: AIDAN ACUÑA Sex: M : 1970 Age: 50yTRIAGEArrived by private vehicle. Historian: patient. Unaccompanied.Triage time: late entry - 10:06 09/29/2020. Acuity: LEVEL 3.Chief Complaint: ABDOMINAL PAIN, NAUSEA and VOMITING and (BACK PAIN).Alert. No acute distress.Onset. (2 weeks ago). ( Pt states 2 weeks ago he started vomiting, 4-5 times per day with nausea, deniesdiarrhea. Pt states he has had back pain that wraps around both sides and radiates to the center of hisstomach for the past month and "i think it's an infection". Pt states he has had "boils in the past" and hasone starting currently under left axilla that has been draining.). The patient has had nausea. The patienthas had vomiting (3-4 times today). ( Pt has had PMH of non hodgkins lymphoma; [place] Last oral intake by patient was (unknown; Nottod ay).Treatment [employer]:(Tylenol last dose last night;).SEPSIS SCREEN: SIRS Screen: heart rate greater than 90. (10:13 09/29/2020). --10:13 09/29/20Anna Alaniz R.N.10:08 09/29/20. BP: 134/85. MAP: 101. HR: 92. RR: 17. O2 saturation: 98% on room air. Temp: 98.4 F(temporal). Pain level now: 06/17. --10:13 09/29/20 Anna Alaniz R.N.Weight: 136 kg stated. Height/Length: 69 inches Per Patient. BMI: 44.3. --10:05 09/29/20 Anna Alaniz R.N.MedicationsGlipizide Oral (Tablet 10 mg) 1 tablet, 2x a day. Paxil Oral (Tablet 10 mg) 1 tablet, daily. --10:14 09/29/20 Anna Alaniz R.N. Gabapentin Oral 100 mg, q8h. --10:14 09/29/20 Anna Alaniz R.N. Atorvastatin Calcium Oral 20 mg, daily. --10:15 09/29/20 Anna Alaniz R.N. Lisinopril Oral 10 mg, daily. --10:15 09/29/20 Anna Alaniz R.N. Alogliptin-Pioglitazone Oral (Tablet 25-15 mg) 1 tablet, daily. --10:15 09/29/20 Anna Alaniz R.N. Pioglitazone HCl Oral 15 mg, daily. --10:16 09/29/20 Anna Alaniz R.N.AllergiesNo Known Drug Allergy. --10:14 09/29/20 Anna Alaniz R.N.PROBLEMS:Diarrhea. 2 Clinical Report - Nurses [facility] Emergency Department [address] [place] [address] Phone #: ext- [phone] 09/29/2020 10:06 Patient: AIDAN ACUÑA Sex: M : 1970 Age: 50yGastroesophageal Reflux Disease.Diabetes Mellitus.Abdominal Pain.Non-hodkins lymphoma.Hypertension.Kidney stones. --10:16 09/29/20 Anna Alaniz R.N.Hyperlipidemia. --10:54 09/29/20 Loraine Horta RN.Medication/allergy information source: the patient. --10:13 09/29/20 Anna Alaniz R.N.ADDITIONAL SURGERIES:Cholecystectomy.Kidney stones.Lymph node bx neck.Tonsillectomy. --10:16 09/29/20 Anna Alaniz R.N.HistoryPAST MEDICAL HX: Immunizations: up-to-date.SOCIAL HX: Smoker- current status unknown (Pt chews 1 can per day). No alcohol use or drug use. [place] travel. No known contact with a sick individual. The patient was offered HIV testing but declined.Patient education was provided. The patient was offered hepatitis C testing but declined. Patienteducation was provided. ( COVID screen negative). The patient has not traveled outside the [place]Infectious disease exposure: No infectious disease exposure. Patient is not a known carrier of tuberculosis,hepatitis, HIV, MRSA or VRE. Patient is not a known carrier of CRE. SELF HARM ASSESSMENT: Self harm assessment was performed. The patient answered "no" to thequestion(s) "Do you have thoughts of harming or killing yourself?" and "Do you have a plan for harming orkilling yourself?".ABUSE ASSESSMENT: Abuse assessment. The patient had positive responses to the question(s) "Do youfeel safe in your home?". Abuse denied. No suspicion of abuse. No report of abuse.NUTRITIONAL RISK ASSESSMENT: The nutritional risk assessment revealed no deficiencies.FUNCTIONAL ASSESSMENT: Functional assessment: no impairments noted.LEARNING NEEDS ASSESSMENT: The learning needs assessment revealed no barriers.FALL RISK ASSESSMENT: Fall risk assessment completed. No risk factors identified.SKIN INTEGRITY ASSESSMENT: Skin integrity risk assessment completed. No skin integrity riskidentified. --10:13 09/29/20 Anna Alaniz R.N.FAMILY HX:(Father had liver CA 3 Clinical Report - Nurses [facility] Department [address] [place] [address] Phone #: ext- [phone] 09/29/2020 10:06 Patient: AIDAN ACUÑA Sex: M : 1970 Age: 50y Mother had Colon CA). --10:46 09/29/20 Tai Schaefer, Physician. Interventions Identification band on patient. --10:13 09/29/20 Anna Alaniz R.N.PHYSICAL NGWRYUTVHR83:17 09/29/20. Ambulatory to room.GENERAL / NEURO / PSYCH: Alert. Oriented X 4. Appears in no acute distress.HEENT: Mucous membranes are pink.RESPIRATORY: Respirations not labored.CVS: Capillary refill less than 2 seconds.GI / : The patient has had nausea. Obesity. Abdomen soft. Abdominal tenderness in the left upperquadrant and right and left side of the abdomen.SKIN: Skin is warm and dry. --10:21 09/29/20 Loraine Horta RN.NURSING PROGRESS NOTES10:08 09/29/20. Head of bed elevated. Two patient identifiers checked. Call light placed in reach. Siderails up. Bed placed in lowest po sition. Brakes of bed on. Patient ready for evaluation- ED physiciannotified. --10:22 09/29/20 Loraine Horta RN 10:16 09/29/2020 Site #1 started via IV in the left forearm with an 20g angiocath, with aseptic technique and good blood return; one attempt. Blood drawn: rainbow set. Labeled in the presence of the patient and sent to the lab. Saline lock flushed with 10 mL saline. --10:21 09/29/20 Loraine Horta RN EKG time: (10:37 09/29/2020). EKG was performed by a tech and shown to the ED physician. . --10:45 09/29/20 [place] clip bolter and wrapperPorfirio ER Tech1 ( Patient asked several times to get into a gown and refused.). --10:47 09/29/20 [place] clip bolter and wrapper, Porfirio, ER Tech1 10:42 09/29/2020 Started bag #1 1000 mL IV Fluids IV NS; bolus of 1000 mL over 1 hour(s) then at 1000 mL/hr over 1 hour(s) via site #1 via IV pump. Allergies verified and confirmed 5 rights. IV patency established. IV site checked: no pain, redness, or swelling. IV flushed thoroughly pre- and post-medication administration. Information reviewed with patient including reason for taking this medication, signs of allergic reaction and precautions. Verbalizes understanding. Completed per protocol. --10:47 09/29/20 Loraine Horta RN 10:42 09/29/2020 Zofran (Ondansetron HCl) IVP 4 mg given over 1 minute(s) via site #1. Allergies verified and confirmed 5 rights. IV patency established. IV site checked: no pain, redness, or swelling. IV flushed thoroughly pre- and post-medication administration. IVP given by RN. Information reviewed with patient including reason for taking this medication, signs of allergic reaction and precautions. Verbalizes understanding. --10:49 09/29/20 Loraine Horta RN 10:43 09/29/2020 Started 40 mg of Protonix (Pantoprazole Sodium) IVPB in bag #1 100 mL; at 200 mL/hr 4 Clinical Report - Nurses [facility] Department [address] [place] [address] Phone #: ext- [phone] 09/29/2020 10:06 Patient: AIDAN ACUÑA Sex: M : 1970 Age: 50yover 30 minute(s) via site #1. via IV pump. Allergies verified and confirmed 5 rights. IV patency established.IV site checked: no pain, redness, or swelling. IV flushed thoroughly pre- and post- medicationadministration. Information reviewed with patient including reason for taking this medication, signs ofallergic reaction and precautions. Verbalizes understanding. Completed per protocol. --10:48 09/29/20Loraine Horta RN10:50 09/29/20. Reassessment after medication administered. No adverse reaction. Reassessment afterfluids administered. He has had no adverse reaction. --10:50 09/29/20 Loraine Horta RN10:55 09/29/2020 Morphine IVP 2 mg given diluted in NS 10mL over 5 minute(s) via site #1. Allergiesverified and confirmed 5 rights. IV patency established. IV site checked: no pain, redness, or swelling. IVflushed thoroughly pre- and post-medication administration. IVP given by RN. Information reviewed withpatient including reason for taking this medication, signs of allergic reaction, precautions and sedativewarning. Verbalizes understanding. --11:00 09/29/20 Loraine Horta RN11:10 09/29/20. ( Patient standing at bedside, states "feels better to stand than sit" Rates mid- back,abdominal pain down to 5/10). --11:33 09/29/20 Loraine Horta RN11:10 09/29/2020 Morphine IVP Response: no adverse reaction pain is improving. Symptoms haveimproved the patient feels better. --11:29 09/29/20 Loraine Horta RN11:13 09/29/2020 Protonix IVPB via IV site #1 Discontinued: completed. Total amount infused: 100 mL. IVpatency established. IV site checked: no pain, redness, or swelling. IV flushed thoroughly. --11: Loraine Horta RN11:33 09/29/20. Patient transported to CT by wheelchair with mask and radiology assistant. --11:33 09/29/20Loraine Horta RN11:46 09/29/20. Patient returned from CT by wheelchair with mask and radiology assistant. --11:47 09/29/20Loraine Horta RN11:47 09/29/20. BP: 132/82. MAP: 98. HR: 89. RR: 14. O2 saturation: 95%. Pain level now: 5/10.--11:48 09/29/20 Loraine Horta RN12:10 09/29/20. Reassessment after medication administered. No adverse reaction. Pain still present butimproving. Reassessment after fluids administered. He reports no complaints. ( Watching TV). Patientwaiting for CT results. --13:22 09/29/20 Loraine Horta RN12:34 09/29/2020 IV Fluids IV NS via IV site #1 Discontinued: bag #1 completed. Total amount infused:1000 mL. IV patency established. IV site checked: no pain, redness, or swelling. IV flushed thoroughly.--12:34 09/29/20 Loraine Horta RN13:00 09/29/20. Reassessment after fluids administered. ( [facility] --13:24 09/29/20 Loraine Horta RN 5 Clinical Report - Nurses [facility] Emergency Department [address] [place] [address] Phone #: ext- [phone] 09/29/2020 10:06 Patient: AIDAN ACUÑA Sex: M : 1970 Age: 50y 13:24 09/29/20. BP: 135/81. HR: 85. RR: 18. O2 saturation: 100%. --13:25 09/29/20 [facility] 12:34 09/29/2020 Started bag #2 1000 mL IV Fluids IV NS; at 125 mL/hr over 8 hour(s) via site #1 via IV pump. Allergies verified and confirmed 5 rights. IV patency established. IV site checked: no pain, redness, or swelling. IV flushed thoroughly pre- and post- medication administration. Information reviewed with patient including reason for taking this medication, signs of allergic reaction and precautions. Verbalizes understanding. Completed per protocol. --14:26 09/29/20 Loraine Horta RN 13:25 09/29/20. ( Patient standing at bedside, rates pain 6/10 Accepted for transfer to [facility] direct admission to ICU, awaiting bed assignment). --14:17 09/29/20 Loraine Horta RN 13:43 09/29/2020 Started 1 gm of ROCEPHIN (1GM/50ML) (cefTRIAXone Sodium) IVPB in bag #1 50 mL; at 100 mL/hr over 30 minute(s) via site #1. via IV pump. Allergies verified and confirmed 5 rights. IV patency established. IV site checked: no pain, redness, or swelling. IV flushed thoroughly pre- and post-medication administration. Information reviewed with patient including reason for taking this medication, signs of allergic reaction and precautions. Verbalizes understanding. --14:04 09/29/20 Loraine Horta RN 13:43 09/29/2020 Morphine IVP 2 mg given diluted in NS 10mL over 3 minute(s) via site #1. Allergies verified and confirmed 5 rights. IV patency established. IV site checked: no pain, redness, or swelling. IV flushed thoroughly pre- and post-medication administration. IVP given by RN. Information reviewed with patient including reason for taking this medication, signs of allergic reaction, precautions and sedative warning. Verbalizes understanding. --14:05 09/29/20 Loraine Horta RN 13:48 09/29/2020 Morphine IVP Response: no adverse reaction pain is improving. Symptoms have improved. --14:27 09/29/20 Loraine Horta RN 14:15 09/29/2020 ROCEPHIN (1GM/50ML) IVPB via IV site #1 Continued: upon transfer at the rate of 100 mL/hr. 23 mL remaining. IV patency established. IV site checked: no pain, redness, or swelling. IV flushed thoroughly. --14:25 09/29/20 Loraine Horta RN 14:17 09/29/2020 IV Fluids IV NS via IV site #1 Continued: upon transfer at the rate of 125 mL/hr. 750 mL remaining bag #2. IV patency established. IV site checked: no pain, redness, or swelling. IV flushed thoroughly. --14:28 09/29/20 Loraine Horta RN.DISPOSITION / DISCHARGE 13:55 09/29/20. Report was given to a nurse via a phone call. Report included information regarding patient's care and condition, vital signs and abnormal labs. Report included treatment information regarding medications given or pending and home medications; type and amount of IV fluids total volume infused; blood products type, with the current amount infusing. All questions were answered. Report was acknowledged. (Reyes Howe RN). Bed obtain ed (Room 3211 ICU). --14:06 09/29/20 Loraine Horta RN 6 Clinical Report - Nurses [facility] Emergency Department [address] [place] [address] Phone #: ext- [phone] 09/29/2020 10:06 Patient: AIDAN ACUÑA Sex: M : 1970 Age: 50y 14:07 09/29/20. Transferred to [facility]. Visit overview, summary of care (CCDA), Emtala forms and Face Sheet provided to EMS and transfer facility via paper and digital media. Transported via stretcher by EMS with monitor and IV. --14:07 09/29/20 Loraine Horta RN 14:14 09/29/20. BP: 144/87. MAP: 106. HR: 96. RR: 16. O2 saturation: 95%. Temp: 97.4 F. Pain level now: 04/17. --14:14 09/29/20 Loraine Horta RN Departure time: 14:17 09/29/2020. --14:24 09/29/20 Loraine Horta RN.Locked/Released at 09/29/2020 14:28 by Loraine Horta RN Name Value Range Interpretation Code Description Data Valentina rce(s) Supporting Document(s) ID Date Data Source [id number] 09/29/2020 10:10:00 AM EST [facility] 1 Clinical Report - Physicians/Mid Levels [facility] Emergency Department [address] [place] [address] Phone #: ext- [phone] 09/29/2020 10:06 [id number] Sex[facility] M : 1970 Age: 50y Time Seen: 10:15 09/29/2020. Arrived- By private vehicle. Historian- patient. Disposition decision: 13:21 09/29/2020.HISTORY OF PRESENT ILLNESS Chief Complaint: ABDOMINAL PAIN and VOMITING, NAUSEA and CRAMPS Multiple episodes of vomiting. This started months ago; Has lost 80 lbs. over last few months. Has Non-Hodgkin's Lymphoma. and is still present. It was gradual in onset. It is described as "pain", cramping and diffuse. No radiation. It is described as located in the upper abdomen, in the periumbilical area, in the lower abdomen and in the left abdomen and left lower quadrant. When seen in the E.D., severity described as 8 / 10. Modifying factors- worsened by movement, cough and food. The patient has had moderate associated nausea. He has had associated moderate loss of appetite. He has had moderate, intermittent vomiting. The vomiting has occurred numerous times. No diarrhea. No recent travel. Similar symptoms previously. Patient has had similar symptoms many times, chronically. ( Has Non- Hodgkin's lymphoma and is seen at [facility] Recent medical care: The patient was seen recently at another facility in a clinic. ( [facility]).REVIEW OF SYSTEMSNo constipation, black stools, hematemesis, difficulty with urination or pain with urination. No urinaryfrequency, bloody stools, fever, headache or sore throat. No blurred vision, chest pain, difficulty breathing,cough or joint pain. No skin rash or chills. The patient has had severe, recent weight loss with poorappetite (80 lbs (383lbs. down to 303lbs.)). He has had back pain.PAST HISTORYPast history not negative. See nurses notes. Hypertension. Diabetes mellitus. GI disease. Otherdisease. Hyperlipidemia. NHLHereditary hemochromatosisCirrhosis / hemosiderosisDepressionLarge weight loss (>80 lbs over 2 months). Surgeries: (Multiple sebaceous cyst abscesses I D'd Liver bx Multiple phlebotomies Excision of NHL in neck).SOCIAL HISTORY 2 Clinical Report - Physicians/Mid Levels [facility] Emergency Department [address] [place] [address] Phone #: ext- [phone] 09/29/2020 10:06 Patient: AIDAN ACUÑA Sex: M : 1970 Age: 50y Former smoker (Now chews tobacco). No alcohol use or drug use. No recent travel.FAMILY HISTORY(Father had liver CAMother had Colon CA).ADDITIONAL NOTESThe nursing notes have been reviewed with agreement regarding the chief complaint, HPI, ROS, PMH andpatient medications and allergies.PHYSICAL EXAMVital Signs: 09/29/2020 10:08 BP: 134/85. MAP: 101. HR: 92. RR: 17. O2 saturation: 98% on room air.Temp: 98.4 F. Pain level now: 8/10. Have been reviewed and appear to be correct. Blood pressurenormal. Heart rate normal. Respiratory rate normal. Temperature normal. Oxygen saturation normal.Appearance: Alert. Oriented X3. Anxious. Appears to be in pain. Patient in moderate distress. Indistress.Eyes: Pupils equal, round and reactive to light. Eyes inspection not normal. Scleral icterus.ENT: Nose normal. Pharynx abnormal. Dry mucous membranes present.Neck: Normal inspection. Neck supple.CVS: Normal heart rate and rhythm. Heart sounds normal. Pulses normal.Respiratory: No respiratory distress. Painless inspiration. Breath sounds normal. Chest nontender.Abdomen: Soft. Moderate tenderness in the upper abdomen and epigastric area. Bowel sounds normal.No organomegaly. No mass. Tenderness present.Back: Normal in spection.Skin: Skin warm and dry. Abnormal skin color. No rash. Normal skin turgor. (Obvious jaundice).Extremities: Extremities exhibit normal ROM. No lower extremity edema.Neuro: Oriented X 3. No motor deficit. No sensory deficit.LABS, X-RAYS, AND EKGLaboratory Tests: Laboratory tests have been ordered, with results reviewed and considered in themedical decision making process. CT Abd PEL W/ IV Contrast Only: (VERONICA: 09/29/2020 10:34) ( MsgRcvd 09/29/2020 19:47) In Progress Exam CT ABD //T// PELVIS W/ IV ONLY [facility] [address] [place] [address] PHONE: [phone] FAX: [phone] Name .................. : DENISHA Gutierrez Acct Number.................. : [id number] ROOM. ................. : TR-05 MR Number ................... : [id number] Stay type ............. : E/R Discharge Date......... ... : Admit Date ......... : 09/29/20 Admit Phys .................... : OLIVE HERRERA Date of ....... : 1970 Family Phys ................... : CLARK HARD Phone .................. : [phone] Age ................................ : 50 Film# .................. .:[id number] Sex ................................. : M Unsigned transcriptions are preliminary reports and do not represent a medical or legal document 3 Clinical Report - Physicians/Mid Levels [facility] Emergency Department [address] [place] [address] Phone #: ext- [phone] 09/29/2020 10:06 Patient: AIDAN ACUÑA Sex: M : 1970 Age: 50y CT ABD Reason(s): Abdominal Pain Vomiting CT OF THE ABDOMEN AND PELVIS WITH CONTRAST: INDICATION: Abdominal pain. FINDINGS: The chest base is clear. There is mild nodularity of the liver capsule. The spleen is enlarged, measuring 17.8 cm. There is normal contrast-enhanced CT appearance of the pancreas, adrenal glands and kidneys. The patient is status post cholecystectomy. There is no evidence of biliary duct dilatation. The visualized bowel is normal in caliber. The appendix is normal. No bowel wall thickening. The bladder and pelvis organs are normal. No acute osseous abnormality. No lymphadenopathy. IMPRESSION: 1. At least moderate splenomegaly with the spleen measuring 17.8 cm at the bulky contour. 2. Possible mild cirrhosis. This is based on mild nodularity of the liver capsule. While performing the above CT examination, radiation dose reduction was accomplished utilizing automated exposure control, adjusting of the mA and kV based on the patient's body size and/or the use of imperative reconstructive techniques. CT dose: 2284.3 mGycm Page 1of 2 [place] [address] PHONE: [phone] FAX: [phone] Name .................. : DENISHA Gutierrez Acct Number.................. : [id number] ROOM. ................. : TR-05 Number ................... : [id number] Stay type ............. : E/R Discharge Date......... ... : Admit Date ......... : 09/29/20 Admit Phys .................... : OLIVE HERRERA Date of ....... : Family Phys ................... : CLARK HARD Phone .................. : [phone] Age ................................ : 50 Film# .................. .:[id number] Sex ................................. : M Unsigned transcriptions are preliminary reports and do not represent a medical or legal document CT ABD Reason(s): Abdominal Pain Vomiting Contrast agent in mL: 75 Isovue 370 4 Clinical Report - Physicians/Mid Levels [facility] Emergency Department [address] [place] [address] Phone #: ext- [phone] 09/29/2020 10:06 Patient: AIDAN ACUÑA Sex: M : 1970 Age: 50y Method of administration: Intravenous Electronically Reviewed and Signed By JAYCE SIGNSHAHRIAR REBOLLEDO Transcribe Initials: DANILO , Transcribe Date: 09/29/20 13:13, Dictation Date: <<REPDIST>> Page 2of 2CT CTA CHEST NON-CORONARY W CON INC PP: (VERONICA: 09/29/2020 10:34) ( MsgRcvd 09/29/2020 19:47) InProgress Test Result Flag Units (Reference) CT CTA CHEST NON-CORONARY W CON INC [facility] [address] [place] [address] PHONE: [phone] FAX: [phone] -- Name .................. : DENISHA Gutierrez Acct Number.................. : [id number] ROOM. ................. : TR-05 Number ................... : [id number] Stay type ............. : E/R Discharge Date......... ... : Admit Date ......... : 09/29/20 Admit Phys .................... : OLIVE HERRERA Date of ....... : 1970 Family Phys ................... : [employer] Berhad HARD Phone .................. : [phone] Age ................................ : 50 Film# .................. .:[id number] Sex ................................. 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 Possible metastasis. -- -- FINDINGS: The neck base is clear. -- There is an 8 mm calcified granuloma in the medial left lower lobe. No suspicious mass or nodules are visualized. -- There is also a 3 mm calcified granuloma in the right upper lobe. -- The heart is normal in size. No lymphadenopathy. No pulmonary embolism. -- Multiple calcified subcarinal lymph nodes are noted. -- There is no acute osseous abnormality. -- 5 Clinical Report - Physicians/Mid Levels [facility] Emergency Department [address] [place] [address] Phone #: ext- [phone] 09/29/2020 10:06 Patient: AIDAN ACUÑA Sex: M : 1970 Age: 50y Please see separate report for upper abdominal details. -- -- IMPRESSION: No pulmonary embolism. No metastasis. -- While performing the above CT examination, radiation dose reduction was accomplished utilizing automated exposure control, adjusting of the mA and kV based on the patient's body size and/or the use of imperative reconstructive techniques. -- CT dose: 1102.4 mGycm -- Contrast agent in mL: 75 Isovue 370 -- -- -- Page 1of 2 [place] [address] PHONE: [phone] FAX: [phone] -- Name .................. : DENISHA Gutierrez Acct Number.................. : [id number] ROOM. ................. : TR-05 MR Number ................... : [id number] Stay type ............. : E/R Discharge Date......... ... : Admit Date ......... : 09/29/20 Admit Phys .................... : OLIVE JAVIER Date of ....... : 1970 Family Phys ................... : CLARK HARD Phone .................. : [phone] Age ................................ : 50 Film# .................. .:[id number] Sex ................................. 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 / possible mets / -- -- Method of administration: Intravenous -- -- Electronically Reviewed and Signed By MEREDITH EDUARDO NHY -- Transcribe Initials: DANILO , Transcribe Date: 09/29/20 13:20, Dictation Date: -- -- <<REPDIST>> -- -- -- -- Page 2of 2 --Urinalysis: (VERONICA: 09/29/2020 11:54) ( MsgRcvd 09/29/2020 13:05) Final results Test Result Flag Units (Reference) URINALYSIS URINALYSIS SOURCE R COLOR lucio (NORMAL: Yello CLARITY hazy (NORMAL: Clear 6 Clinical Report - Physicians/Mid Levels [facility] Emergency Department [address] [place] [address] Phone #: ext- [phone] 09/29/2020 10:06 Patient: AIDAN ACUÑA Sex: M : 1970 Age: 50y SPEC GRAVITY 1.015 (1.001 - 1.030 pH 5 (5 - 9) GLUCOSE 1000 A (NORMAL: Negat BILIRUBIN 3 (NORMAL: Negat KETONE 50 A (NORMAL: Negat PROTEIN 15 (NORMAL: Negat NITRITE POS (NORMAL: Negat BLOOD 10 A (NORMAL: Negat LEUK EST 25 (NORMAL: Negat UROBILINOGEN 4 (less than 1.0 MICROSCOPIC See Below WBC 10 - 15 A (NORMAL: NONE RBC 1 - 3 (NORMAL: NONE EPITHELIAL FEW (NORMAL: NONE BACTERIA 3+ LARGE A (NORMAL: NONETroponin-T: (VERONICA: 09/29/2020 10:17) ( [employer] [facility] 09/29/2020 11:15) Final results Test Result Flag Units (Reference) TROPONIN T <0.01 NG/ML (0.00 - 0.10) TROPONIN T0.1 ng/ml Recommended as the clinical threshold value forTroponin T.Lipase: (VERONICA: 09/29/2020 10:17) ( [employer] [facility] 09/29/2020 11:23) Final results Test Result Flag Units (Reference) LIPASE 1102 H U/L (13 - 60)Lactic Acid: (VERONICA: 09/29/2020 10:17) ( [employer] [facility] 09/29/2020 10:55) Final results Test Result Flag Units (Reference) LACTIC ACID 1.7 MMOL/L (0.2 - 2.2)PTT: (VERONICA: 09/29/2020 10:17) ( [facility] [place] 09/29/[place] 10:55) Final results Test Result Flag Units (Reference) PTT 29.4 SECONDS (24.8 - 36.7)PT/INR: (VERONICA: 09/29/2020 10:17) ( MsgRcvd 09/29/2020 13:50) Final results Test Result Flag Units (Reference) PROTIME 11.3 SECONDS (11.0 - 15.5) TEST PERFORMED AT [address] [phone] CLIA# [id number] SEE SCANNED REPORT INR 1.10 (0.93 - 1.23) \\ BLDo\\INR INTERPRETATION\\BLDx\\ Therapeutic range for Coumadin andrelated oral anticoagulants. -International Normalized Ratio (INR): 2.0 - 3.0 for VenousThrombosis, Pulmonary Embolus, Tissue heart valves, Acute SD, Atrial Fibrillation, Valvular heartdisease and recurrent Systemic Embolism. -International Normalized Ratio (INR): 2.5 - 3.5for Mechanical Prosthetic valve.BNP: (VERONICA: 09/29/2020 10:17) ( [facility] [place] 09/29/2020 11:12) Final results Test Result Flag Units (Reference) BNP 43 PG/ML (0 - 125)CBC w Diff: (VERONICA: 09/29/2020 10:17) ( [facility] 09/29/2020 11:14) Final results Test Result Flag Units (Reference) CBC W/AUTOMATED DIFF 7 Clinical Report - Physicians/Mid Levels [facility] Emergency Department [address] [place] [address] Phone #: ext- [phone] 09/29/2020 10:06 Patient: AIDAN ACUÑA Sex: M : 1970 Age: 50y COMPLETE BLOOD COUNT WBC 2.3 L 10/uL (4.2 - 11.0) RBC 4.94 10/uL (4.50 - 6.30) HEMOGLOBIN 16.0 g/dL (14.0 - 16.0) HEMATOCRIT 46.0 % (41.0 - 51.0) MCV 93.1 fL (80.0 - 94.0) MCH 32.4 pg (27.0 - 34.0) MCHC 34.8 g/dL (31.0 - 36.0) RDW 13.2 % (11.5 - 14.8) PLATELETS 128 L 10/uL (150 - 450) MPV 10.2 fL (7.4 - 10.4) NEUT 55.0 % (37.0 - 80.0) LYMPH 23.8 L % (25.0 - 40.0) MONO 19.0 H % (3.0 - 8.0) EOS 1.3 % (0.0 - 7.0) BASO 0.9 % (0.0 - 2.0) %IG 0.0 % (0.0 - 0.0) %NRBC 0.0 % (0.0 - 0.0) #NEUT 1.27 L 10/uL (2.00 - 6.90) #LYMPH 0.55 L 10/uL (0.60 - 3.40) #MONO 0.44 10/uL (0.00 - 0.90) #EOS 0.03 10/uL (0.00 - 0.70) #BASO 0.02 10/uL (0.00 - 0.20) #IG 0.00 10/uL (0.00 - 0.10) #NRBC 0.00 10/uL (0.00 - 0.00) MANUAL DIFF SEE BELOW SEGS 58 % (37 - 80) %LYMPH 20 L % (25 - 40) %MONO 20 H % (3 - 8) CHARLA LYM 2 % RBC MORPH SEE BELOW ANISO 1+ A (NORMAL: NONE { SICKLE CELL (NORMAL: NONE SEEN ) PLT EST NORMAL (NORMAL: ROSANNE COMMENT: CMP: (VERONICA: 09/29/2020 10:17) ( MsgRcvd 09/29/2020 11:13) Final results Test Result Flag Units (Reference) COMPREHENSIVE METABOLIC PANEL COMPREHENSIVE METABOLIC PANEL SODIUM 133 L mEq/L (134 - 153) POTASSIUM 3.8 mEq/L (3.6 - 5.0) CHLORIDE 97 L mEq/L (98 - 107) CO2 24 MEQ/L (22 - 30) GLUCOSE 287 H MG/DL (65 - 110) BUN 8 MG/DL (7 - 21) CREATININE 0.4 L MG/DL (0.7 - 1.5) BUN/CREAT 20 (8 - 27) TOTAL PROTEIN 7.8 G/DL (6.3 - 8.2) ALBUMIN 3.8 L G/DL (3.9 - 5.0) GLOBULIN 4.0 H GM/DL (2.4 - 3.2) A/G RATIO 1.0 (0.8 - 2.0) CALCIUM 9.6 MG/DL (8.4 - 10.2) TOTAL BILI 5.5 H MG/DL (0.2 - 1.3) ALKALINE PHOS 394 H U/L (38 - 126) 8 Clinical Report - Physicians/Mid Levels [facility] Emergency Department [address] [place] [address] Phone #: ext- [phone] 09/29/2020 10:06 Patient: AIDAN ACUÑA Sex: M : 1970 Age: 50y SGOT/AST 229 H U/L (5 - 40) SGPT/ALT 343 H U/L (7 - 56) ANION GAP 12.0 mmol/L (8.0 - 16.0) AGE 50 yrs NON- AA GFR >60 mL/min AFR AMER GFR >60 mL/min Male GFR Interprentation 20-49 yrs >60 mL/min Normal 50-59 yrs >56 mL/min Normal 60-69 yrs >49 mL/min Normal 70-79yrs >42 mL/min Normal 80 and above >35 mL/min Normal Female GFR Interpretation 20-39 yrs >60 mL/min Normal 40-49 yrs >58 mL/min Normal 50-59 yrs >51 mL/min Normal 60-69 yrs >45 mL/min Normal 70- 79 yrs >39 mL/min Normal 80 and above >32 mL/min Normal . Note - Tests: (CTA chest - NAD, no mets. CT abdomen / pelvis - Mod. splenomegaly, mild cirrhosis.).PROGRESS AND PROCEDURESCourse of Care: 13:Sep 29 2020. Patient is stable. 13:Sep 29 2020. Pt. has obvious jaundice and acute hepatic obstruction and severe acute pancreatitis as well. His lab work 2 days ago at [facility] was NL. His T. bili today is 5.5, lipase 1192 and SGOT / SGPT is 229/343. He also has an acute UTI. He clearly needs a higher level of care and I have spoken with Dr. Hickman ([employer]) and Dr. Nam (Hospitalist) at [facility]. Dr. Nam will accept pt. for transfer. Critical care performed (130 minutes). Time is exclusive of separately billable procedures. Time includes: direct patient care, patient reassessment, coordination of patient care, interpretation of data (laboratory data and pulse oximetry), review of patient's medical records, medical consultation and documentation of patient care- see progress notes. Procedures included in critical care time: peripheral IV placement and phlebotomy- see progress notes. Disposition: Benefits, risks and alternatives to transfer explained to patient. Transferred to [facility]. Summary of care (CCDA) provided to transport team, EMS, patient, family and transfer facility via paper and digital media. 13:21 Sep 29 2020 Transfer to [facility] as direct admit to Dr. Nam (Accepting Hospitalist). UTI (catheter associated) was not present prior to transfer. Pressure ulcer was not present prior to transfer. Vascular infection (catheter associated) was not present prior to transfer. Surgical site infection was not present prior to transfer. An object left in surgery was not present prior to transfer. Blood incompatibility was not present prior to transfer. Air embolism was not present prior to transfer.CLINICAL IMPRESSION Acute biliary pancreatitis (Severe, Possibly drug-induced). No pseudocyst, abscess or hyperlipidemia. Acute drug-induced hepatitis (Possibly drug-induced / possible d/t malignancy). No ascites, hepatic encephalopathy or coma. Acute urinary tract infection with cystitis. No hematuria. Not associated with indwelling catheter or obstruction. (Acute obstructive jaundice). 9 Clinical Report - Physicians/Mid Levels [facility] Emergency Department [address] [place] [address] Phone #: ext- [phone] 09/29/2020 10:06 Patient: AIDAN ACUÑA Sex: M : 1970 Age: 50y(Electronically signed by Tai Schaefer, Physician 09/29/2020 20:11) Name Value Range Interpretation Code Description Data Valentina rce(s) Supporting Document(s) ID Date Data Source [id number] 09/29/2020 10:10:00 AM [facility] Addenda for AIDAN ACUÑA VisitID: [id number] Date: 15:24Pt urine growing E.C rosa 50- 100,000 and was transferred to [facility], pt is still there, faxed to [phone](Electronically signed by Anna Alaniz R.N. - 10/03/2020 15:24) Name Value Range Interpretation Code Description Data Valentina rce(s) Supporting Document(s) ID Date Data Source [id number] 10/01/2020 08:28:00 [place] [address] RESPIRATORY CARE REPORT ==== ---------NAME------- NUMBER SEX AGE ADMIT DISC. XRAY# F/C TYPEDENISHA BERMUDEZ L [id number] M 50 09/29/20 09/29/20 [id number] X6B E/R DATE OF : 1970 M/R# [id number] PH#: [phone] TR-05 LOCATION: EMERGENCY DEPT [facility] [address] COMP LETE:09/29/20 10:53 [facility] [address] PHYSICIAN: OLIVE HERRERA Name Value Range Interpretation Code Description Data Valentina rce(s) Supporting Document(s) ID Date Data Source [id number] 09/30/2020 12:02:00 [place] [address] PHONE: [phone] FAX: [phone] Name .................. : LINAING AIDAN L Acct Number.................. : [id number] ROOM. ................. : - Number ................... : [id number] Stay type ............. : E/R Discharge Date......... ... : Admit Date ......... : 09/29/20 Admit Phys .................... : OLIVE JAVIER Date of ....... : 1970 Family Phys ................... : CLARK HARD Phone .................. : [phone] Age ................................ : 50 Film# .................. .:[id number] Sex ................................. 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 Possible metastasis. FINDINGS: The neck base is clear. There is an 8 mm calcified granuloma in the medial left lower lobe. No suspicious mass or nodules are visualized. There is also a 3 mm calcified granuloma in the right upper lobe. The heart is normal in size. No lymphadenopathy. No pulmonary embolism. Multiple calcified subcarinal lymph nodes are noted. There is no acute osseous abnormality. Please see separate report for upper abdominal details. IMPRESSION: No pulmonary embolism. No metastasis. While performing the above CT examination, radiation dose reduction was accomplished utilizing automated exposure control, adjusting of the mA and kV based on the patient's body size and/or the use of imperative reconstructive techniques. CT dose: 1102.4 mGycm Contrast agent in mL: 75 Isovue 370 Page 1 of 2 [facility] [address] [place] [address] PHONE: [phone] FAX: [phone] Name .................. : DENISHA Gutierrez Acct Number.................. : [id number] ROOM. ................. : TR-05 Number ................... : [id number] Stay type ............. : E/R Discharge Date......... ... : Admit Date ......... : 09/29/20 Admit Phys .................... : OLIVE HERRERA Date of ....... : 1970 Family Phys ................... : [employer] HARD Phone .................. : [phone] Age ................................ : 50 Film# .................. .:[id number] Sex ................................. 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 , 09/30/20 12:02, [facility] Transcribe Initials: DANILO , Transcribe Date: 09/29/20 13:20, Dictation Date: Copy for: EMERGENCY DEPT via modem Copy for: 710 MED REC DISCHARGED Page 2 of 2 Name Value Range Interpretation Code Description Data Valentina rce(s) Supporting Document(s) ID Date Data Source [id number] 09/30/2020 12:02:00 PM EST [facility] [address] [place] [address] PHONE: [phone] FAX: [phone] Name .................. : DENISHA Gutierrez Acct Number.................. : [id number] ROOM. ................. : TR-05 MR Number ................... : [id number] Stay type ............. : E/R Discharge Date......... ... : Admit Date ......... : 09/29/20 Admit Phys .................... : OLIVE HERRERA Date of ....... : 1970 Family Phys ................... : [employer] HARD Phone .................. : [phone] Age ................................ : 50 Film# .................. .:[id number] Sex ................................. : M Unsigned transcriptions are preliminary reports and do not represent a medical or legal document CT ABD & PELVIS W/ IV ONLY [id number] COMPLETE:09/29/20 10:34 83413 Reason(s): Abdominal Pain CT OF THE ABDOMEN AND PELVIS WITH CONTRAST: INDICATION: Abdominal pain. FINDINGS: The chest base is clear. There is mild nodularity of the liver capsule. The spleen is enlarged, measuring 17.8 cm. There is normal contrast- enhanced CT appearance of the pancreas, adrenal glands and kidneys. The patient is status post cholecystectomy. There is no evidence of biliary duct dilatation . The visualized bowel is normal in caliber. The appendix is normal. No bowel wall thickening. The bladder and pelvis organs are normal. No acute osseous abnormality. No lymphadenopathy. IMPRESSION: 1. At least moderate splenomegaly with the spleen measuring 17.8 cm at the bulky contour. 2. Possible mild cirrhosis. This is based on mild nodularity of the liver capsule. While performing the above CT examination, radiation dose reduction was accomplished utilizing automated exposure control, adjusting of the mA and kV based on the patient's body size and/or the use of imperative reconstructive techniques. CT dose: 2284.3 mGycm [address] [place] [address] [place] [address] PHONE: [phone] FAX: [phone] Name .................. : DENISHA Gutierrez Acct Number.................. : [id number] ROOM. ................. : TR-05 Number ................... : [id number] Stay type ............. : E/R Discharge Date......... ... : Admit Date ......... : 09/29/20 Admit Phys .................... : OLIVE HERRERA Date of ....... : 1970 Family Phys ................... : EDUARDO HARD Phone .................. : [phone] Age ................................ : 50 Film# .................. .:[id number] Sex ................................. : M Unsigned transcriptions are preliminary reports and do not represent a medical or legal document CT ABD & PELVIS W/ IV ONLY [id number] COMPLETE:09/29/20 10:34 70468 Reason(s): Abdominal Pain Contrast agent in mL: 75 Isovue 370 Method of administration: Intravenous Electronically Reviewed and Signed By Aleksander Stovall M.D. , 09/30/20 12:02, ADRIANY Transcribe Initials: DZ , Transcribe Date: 09/29/20 13:13, Dictation Date: Copy for: EMERGENCY DEPT via [facility] [place] Copy for: 710 MED REC DISCHARGED Page 2 of 2 Name Value Range Interpretation Code Description Data Valentina rce(s) Supporting Document(s) ID Date Data Source [id number] 09/29/2020 11:54:00 AM EST [facility] ([facility]) Name Value Range Interpretation Code Description Data Valentina rce(s) Supporting Document(s) Culture Urine Laboratory test result [facility] ([facility]) SOURCE: Clean Catch ID Date Data Source [id number] 09/29/2020 11:54:00 AM EST [facility] ([facility]) Name Value Range Interpretation Code Description Data Valentina rce(s) Supporting Document(s) Urinalysis Laboratory test result [facility] ([facility]) SOURCE: Clean Catch Color Laboratory test result [facility] ([facility]) SOURCE: Clean Catch Source Laboratory test result [facility] ([facility]) SOURCE: Clean Catch pH 5 5-9 [facility] ([facility]) SOURCE: Clean Catch Clarity Laboratory test result [facility] ([facility]) SOURCE: Clean Catch Spec [place] 1.015 1.001-1.030 [facility] ([facility]) SOURCE: Clean Catch Glucose 1000 Abnormal (applies to non-numeric res ults) [facility] ([facility]) SOURCE: Clean Catch Bilirubin 3 [facility] ([facility]) SOURCE: Clean Catch Ketone 50 Abnormal (applies to non-numeric res ults) [facility] ([facility]) SOURCE: Clean Catch Protein 15 [facility] ([facility]) SOURCE: Clean Catch Nitrite Laboratory test result [facility] ([facility]) SOURCE: Clean Catch Leuk Est 25 [facility] ([facility]) SOURCE: Clean Catch Blood 10 Abnormal (applies to non-numeric res ults) [facility] ([facility]) SOURCE: Clean Catch Microscopic Laboratory test result M [facility] ([facility]) SOURCE: Clean Catch Urobilinogen 4 [facility] ([facility]) SOURCE: Clean Catch WBC Laboratory test result Abnormal (applies to non -numeric results) [facility] ([facility]) SOURCE: Clean Catch RBC Laboratory test result [facility] ([facility]) SOURCE: Clean Catch Bacteria Laboratory test result Abnormal (applies to non -numeric results) [facility] ([facility]) SOURCE: Clean Catch Epithelial Laboratory test result [facility] ([facility]) SOURCE: Clean Catch ID Date Data Source [id number] 10/03/2020 12:41:00 PM [facility] Name Value Range Interpretation Code Description Data Valentina rce(s) Supporting Document(s) CULTURE URINE [facility] _CULTURE URINE_$$[id number]$$312195$$313355$$135925$$651766$$142773$$579293$$508107$$636777$$ 284014$$883711$$755305$$328129$$422731$$604128$$067778$$070441$$032994$$556486$$ 929180$$017162$$917236$$665753$$789785$$011703$$156842$$085834 -- Continued on next page --Patient: DENISHA Gutierrez Order: [id number] Page 2Culture: CULTURE URINE Status: Final ====$$[id number]$$[id number] DATE/TIME: 10/03/2020 12:06Culture: CULTURE URINE Status: FinalIsolate 1 Escherichia coli Flag: A . . . . . . .150,000-100,000 colony forming units per mLCefazolin <=4 ug/mLCefazolin with an TATIANA <=16 predicts susceptibility to the oral agentscefaclor, cefdinir, cefpodoxime, cefprozil, cefuroxime, cephalexin,and loracarbef when used for therapy of uncomplicated urinary tractinfections due to E. coli, Klebsiella pneumoniae, and Proteusmirabilis. Previous result entered on 10/02/2020 01:51 ET Escherichia coliUrine Culture,Comprehensive: [id number] coli Flag: APatient: DENISHA BERMUDEZ Matt Order: [id number] Page 3Culture: CULTURE URINE Status: Final ====ISOLATE 1 Escherichia coli Isolate 1Antibiotic TATIANA IntUnits ug/mL -----Amoxicillin/Clavulanic Acid S S . . . . . .20-8Ampicillin R R . . . . . .28-1Cefepime S S . . . . . .6644-9Ceftriaxone S S . . . . . .141-2Cefuroxime S S . . . . . .145- 3Ciprofloxacin S S . . . . . .185-9Ertapenem S S . . . . . .12721-0Jtphvdcknu S S . . . . . .267-5Imipenem S S . . . . . .279-0Levofloxacin S S . . . . . .95030-3Flglarkso S S . . . . . .6652-2Nitrofurantoin S S . . . . . .363- 2Piperacillin/Tazobactam S S . . . . . .412-7Tetracycline S S . . . . . .496-0Tobramycin S S . . . . . .508-2Trimethoprim/Sulfa S S . . . . . .516-5P1 Test performed by: [facility] #: [id number] [address] [place] [address] [id number] [facility] [id number] Director : Jasiel Pedraza MD NPI #:Pelletizer Tender : 10/03/[email or web address] REF ID Date Data Source [id number] 09/29/2020 01:04:00 PM EST [facility] Name Value Range Interpretation Code Description Data Valentina rce(s) Supporting Document(s) [facility] S[facility] R [facility] COLOR lucio NORMAL: Yellow [facility] CLARITY hazy NORMAL: Clear [facility] Specific gravity of Urine by Test strip 1.015 1.001 - 1.030 [facility] pH 5 5 - 9 [facility] Glucose [Mass/volume] in Urine by Test strip 1000 NORMAL: Negat haydee [facility] Bilirubin.total [Presence] in Urine by Test strip 3 NORMAL: Negative [facility] Ketones [Presence] in Urine by Test strip 50 NORMAL: Negative [facility] Protein [Mass/volume] in Urine by Test strip 15 NORMAL: Negat haydee [facility] Nitrite [Presence] in Urine by Test strip POS NORMAL: Negative [facility] BLOOD 10 NORMAL: Negative A [facility] Leukocyte esterase [Presence] in Urine by Test strip 25 ROSANNE L: Negative [facility] Urobilinogen [Mass/volume] in Urine by Test strip 4 less leila n 1.0 mg/dL [facility] MICROSCOPIC See Below [facility] ital WBC 10 - 15 NORMAL: NONE SEEN [facility] Erythrocytes [#/volume] in Urine by Test strip 1 - 3 NORMAL: NON E SEEN [facility] EPITHELIAL FEW NORMAL: NONE SEEN [facility] Bacteria [Presence] in Urine sediment by Light microscopy 3+ LARGE NORMAL: NONE SEEN [facility] ID Date Data Source [id number] 09/29/2020 11:54:00 AM [facility] FAXED TO [facility] @ 4388qm (09/29/20) TK Is patient on anticoagulants?: N Name Value Range Interpretation Code Description Data Valentina rce(s) Supporting Document(s) Prothrombin Time (Patient) 11.3 s 9.6-12.3 N [facility] INR 1.1 0.9-1.1 N [facility] THE INR IS OPERATIONALLY DEFINED FOR ZULEIMA SH PLASMA FROMPATIENTS STABILIZED ON ORAL ANTICOAGULANTS.ROUTINE ANTICOAGULANT THERAPY 2.0-3.0RECURRENT SYSTEMIC EMBOLISM/HEART VALVE REPLACEMENT 2.5-3.5 ID Date Data Source [id number] 09/29/2020 10:17:00 AM EST [facility] ([facility]) Name Value Range Interpretation Code Description Data Valentina rce(s) Supporting Document(s) Protime 11.3 s 11.0-15.5 [facility] ([facility]) TEST PERFORMED AT [facility] [address] [place] [address] CLIA# [id number] SEE SCANNED REPORT Inr 1.10 0.93-1.23 [facility] ([facility]) \\BLDo\\INR INTERPRETATION\\BLDx\\ Therapeutic range for Coumadin and related oral anticoagulants. -International Normalized Ratio (INR): 2 .0 - 3.0 for Venous Thrombosis, Pulmonary Embolus, Tissue heart valves, Acute SD, Atrial Fibrillation, Valvular heart disease and recurrent Systemic Embolism. -International Normalized Ratio (INR): 2 .5 - 3.5 for Mechanical Prosthetic valve. ID Date Data Source [id number] 09/29/2020 10:17:00 AM EST [facility] ([facility]) Name Value Range Interpretation Code Description Data Valentina rce(s) Supporting Document(s) Troponin T.cardiac [Mass/volume] in Serum or Plasma Laborato ry test result 0.00-0.10 [facility] ([facility]) TROPONIN T 0.1 ng/ml Recommended as the clinical th reshold value for Troponin T. Lipase [Enzymatic activity/volume] in Serum or Plasma 1102 U/L 13-60 Above high normal [facility] ([facility]) ID Date Data Source [id number] 09/29/2020 10:17:00 AM EST [facility] ([facility]) Name Value Range Interpretation Code Description Data Valentina rce(s) Supporting Document(s) CBC W/Automated Diff Laboratory test result [facility] ([facility]) COMPLETE BLOOD COUNT WBC 2.3 10^3/uL 4.2-11.0 Below low normal [facility] ([facility]) Hematocrit 46.0 % 41.0-51.0 [facility] ([facility]) Hemoglobin 16.0 g/dL 14.0-16.0 [facility] ([facility]) RBC 4.94 10^6/uL 4.50-6.30 [facility] ([facility]) MCHC 34.8 g/dL 31.0-36.0 [facility] ([facility]) MCV 93.1 fL 80.0-94.0 [facility] ([facility]) MCH 32.4 pg 27.0-34.0 [facility] ([facility]) MPV 10.2 fL 7.4-10.4 [facility] ([facility]) Platelets 128 10^3/uL 150-450 Below low normal [facility] ([facility]) RDW 13.2 % 11.5-14.8 [facility] ([facility]) Neut 55.0 % 37.0-80.0 [facility] ([facility]) [place] 19.0 % 3.0-8.0 Above high normal [facility] ([facility]) Eos 1.3 % 0.0-7.0 [facility] ([facility]) Lymph 23.8 % 25.0-40.0 Below low normal [facility] ( [facility]) Baso 0.9 % 0.0-2.0 [facility] ([facility]) %NRBC 0.0 % 0.0-0.0 [facility] ([facility]) %Ig 0.0 % 0.0-0.0 [facility] ([facility]) #Neut 1.27 10^3/uL 2.00-6.90 Below low normal [facility] ([facility]) #Lymph 0.55 10^3/uL 0.60-3.40 Below low normal [facility] ([facility]) #[place] 0.44 10^3/uL 0.00-0.90 [facility] ([facility]) #Eos 0.03 10^3/uL 0.00-0.70 [facility] ([facility]) #Baso 0.02 10^3/uL 0.00-0.20 [facility] ([facility]) #Ig 0.00 10^3/uL 0.00-0.10 [facility] ([facility]) Segs 58 % 37-80 [facility] ([facility]) #NRBC 0.00 10^3/uL 0.00-0.00 [facility] ([facility]) Manual Diff Laboratory test result M [facility] ([facility]) %Lymph 20 % 25-40 Below low normal [facility] ([facility]) %[place] 20 % 3-8 Above high normal [facility] ([facility]) Charla Lym 2 % [facility] ([facility]) RBC Morph Laboratory test result [facility] ([facility]) [place] Laboratory test result Abnormal (applies to non -numeric results) [facility] ([facility]) { SICKLE CELL (NORMAL: NONE SEEN ) PLT Est Laboratory test result [facility] ([facility]) COMMENT: ID Date Data Source [id number] 09/29/2020 10:17:00 AM EST [facility] ([facility]) Name Value Range Interpretation Code Description Data Valentina rce(s) Supporting Document(s) Potassium 3.8 meq/L 3.6-5.0 [facility] ([facility]) Comprehensive [employer] Laboratory test result [facility] ([facility]) COMPREHENSIVE METABOLIC PANEL Sodium 133 meq/L 134-153 Below low normal [facility] ( [facility]) Chloride 97 meq/L 98-107 Below low normal [facility] ( [facility]) Co2 24 meq/L 22-30 [facility] ([facility]) BUN 8 mg/dL 7-21 [facility] ([facility]) Creatinine 0.4 mg/dL 0.7-1.5 Below low normal [facility] ( [facility]) Glucose 287 mg/dL 65-110 Above high normal [facility] ([facility]) BUN/Creat 20 8-27 [facility] ([facility]) Albumin 3.8 g/dL 3.9-5.0 Below low normal [facility] ( [facility]) Total Protein 7.8 g/dL 6.3-8.2 [facility] ([facility]) Calcium 9.6 mg/dL 8.4-10.2 [facility] ([facility]) Globulin 4.0 GM/DL 2.4-3.2 Above high normal [facility] ([facility]) A/G Ratio 1.0 0.8-2.0 [facility] ([facility]) Total Bili 5.5 mg/dL 0.2-1.3 Above high normal [facility] ([facility]) Alkaline Phos 394 U/L 38-126 Above high normal [facility] ([facility]) Anion Gap 12.0 mmol/L 8.0-16.0 [facility] ([facility]) SGPT/Alt 343 U/L 7-56 Above high normal [facility] ([facility]) Sgot/Ast 229 U/L 5-40 Above high normal [facility] ([facility]) Age 50 yrs [facility] ([facility]) Afr Amer GFR Laboratory test result [facility] ([facility]) Male GFR Interprentation 20-49 yrs >60 mL/min Normal 50-59 yrs >56 mL/min Normal 60-69 yrs >49 mL/min Normal 70-79yrs >42 mL/min Normal 80 and above >35 mL/min Normal Female GFR Interpretation 20-39 yrs >60 mL/min Normal 40-49 yrs >58 mL/min Normal 50-59 yrs >51 mL/min Normal 60-69 yrs >45 mL/min Normal 70-79 yrs >39 mL/min Normal 80 and above >32 mL/min Normal Non-Aa GFR Laboratory test result [facility] ([facility]) ID Date Data Source [id number] 09/29/2020 10:17:00 AM EST [facility] ([facility]) Name Value Range Interpretation Code Description Data Valentina rce(s) Supporting Document(s) Natriuretic peptide.B prohormone N-Terminal [Mass/volu me] in Serum or Plasma 43 pg/mL 0-125 [facility] ([facility]) aPTT in Platelet poor plasma by Coagulation assay 29.4 s 24.8-36. 7 [facility] ([facility]) Lactate [Mass/volume] in Serum or Plasma 1.7 mmol/L 0.2-2.2 [facility] ([facility]) ID Date Data Source [id number] 09/29/2020 01:49:00 PM [facility] Name Value Range Interpretation Code Description Data Valentina rce(s) Supporting Document(s) Prothrombin time (PT) 11.3 SECONDS 11.0 - 15.5 [facility] [place] [address] CLIA# [id number] SEE SCANNED REPORT INR in Platelet poor plasma by Coagulation assay 1.10 0.93 - 1. 23 [facility] \\BLDo\\INR INTERPRETATION\\BLDx\\ Therapeutic range for Coumadin and related oral anticoagulants. - International Normalized Ratio (INR): 2.0 - 3.0 for Venous Thrombosis, Pulmonary Embolus, Tissue heart valves, Acute SD, Atrial Fibrillation, Valvular heart disease and recurrent Systemic Embolism. -International Normalized Ratio (INR): 2.5 - 3.5 for Mechanical Prosthetic valve. ID Date Data Source [id number] 09/29/2020 11:23:00 AM [facility] Name Value Range Interpretation Code Description Data Valentina rce(s) Supporting Document(s) Lipase [Enzymatic activity/volume] in Serum or Plasma 1102 U/L 13 - 60 H [facility] ID Date Data Source [id number] 09/29/2020 11:15:00 AM [facility] Name Value Range Interpretation Code Description Data Valentina rce(s) Supporting Document(s) TROPONIN T <0.01 NG/ML 0.00 - 0.10 [facility]ital TROPONIN T0.1 ng/ml Recommended as the c linical threshold value forTroponin T. ID Date Data Source [id number] 09/29/2020 11:13:00 AM [facility] Name Value Range Interpretation Code Description Data Valentina rce(s) Supporting Document(s) CBC W/AUTOMATED DIFF [facility] COMPLETE BLOOD COUNT Leukocytes [#/volume] in Blood by Automated count 2.3 10^3/uL 4.2 - 1 1.0 L [facility] Erythrocytes [#/volume] in Blood by Automated count 4.94 10^6/uL 4. 50 - 6.30 [facility] Hemoglobin [Mass/volume] in Blood 16.0 g/dL 14.0 - 16.0 [facility] Hematocrit [Volume Fraction] of Blood by Automated count 46.0 % 4 1.0 - 51.0 [facility] Erythrocyte mean corpuscular volume [Entitic volume] by Auto mated count 93.1 fL 80.0 - 94.0 [facility] Erythrocyte mean corpuscular hemoglobin [Entitic mass] by Automated count 32.4 pg 27.0 - 34.0 [facility] Erythrocyte mean corpuscular hemoglobin concentration [Mass/volume] by Automated count 34.8 g/dL 31.0 - 36.0 [facility] Erythrocyte distribution width [Ratio] by Automated count 13.2 % 11.5 - 14.8 [facility] Platelets [#/volume] in Blood by Automated count 128 10^3/uL 150 - 45 0 L [facility] Platelet mean volume [Entitic volume] in Blood by Automated count 10.2 fL 7.4 - 10.4 [facility] Neutrophils/100 leukocytes in Blood by Automated count 55.0 % 37. 0 - 80.0 [facility] Lymphocytes/100 leukocytes in Blood by Manual count 23.8 % 25.0 - 40.0 L [facility] Monocytes/100 leukocytes in Blood by Automated count 19.0 % 3.0 - 8.0 H [facility] Eosinophils/100 leukocytes in Blood by Automated count 1.3 % 0.0 - 7.0 [facility] Basophils/100 leukocytes in Blood by Automated count 0.9 % 0.0 - 2.0 [facility] %IG 0.0 % 0.0 - 0.0 [facility] %NRBC 0.0 % 0.0 - 0.0 [facility] al Neutrophils [#/volume] in Blood by Automated count 1.27 10^3/uL 2.00 - 6.90 L [facility] Lymphocytes [#/volume] in Blood by Automated count 0.55 10^3/uL 0.60 - 3.40 L [facility] Monocytes [#/volume] in Blood by Automated count 0.44 10^3/uL 0.00 - 0.90 [facility] Eosinophils [#/volume] in Blood by Automated count 0.03 10^3/uL 0.00 - 0.70 [facility] Basophils [#/volume] in Blood by Automated count 0.02 10^3/uL 0.00 - 0.20 [facility] #IG 0.00 10^3/uL 0.00 - 0.10 [facility] #NRBC 0.00 10^3/uL 0.00 - 0.00 [facility] MANUAL DIFF SEE BELOW [facility] Segmented neutrophils/100 leukocytes in Blood by Manual count 58 % 37 - 80 [facility] %LYMPH 20 % 25 - 40 L [facility] %MONO 20 % 3 - 8 H [facility] CHARLA LYM 2 % [facility] RBC MORPH SEE BELOW [facility] Anisocytosis [Presence] in Blood by Light microscopy 1+ ROSANNE L: NONE SEEN A [facility] { SICKLE CELL (NORMAL: NONE SEEN ) Platelet adequacy [Presence] in Blood by Light microscopy NORMAL NORMAL: NORMAL [facility] COMMENT: ID Date Data Source [id number] 09/29/2020 11:12:00 AM EST [facility] Name Value Range Interpretation Code Description Data Valentina rce(s) Supporting Document(s) COMPREHENSIVE METABOLIC PANEL [facility] COMPREHENSIVE METABOLIC PANEL Sodium [Moles/volume] in Serum or Plasma 133 mEq/L 134 - 153 L [facility] Potassium [Moles/volume] in Serum or Plasma 3.8 mEq/L 3.6 - 5.0 [facility] Chloride [Moles/volume] in Serum or Plasma 97 mEq/L 98 - 107 L [facility] Carbon dioxide, total [Moles/volume] in Serum or Plasma 24 MEQ/L 22 - 30 [facility] Glucose [Mass/volume] in Serum or Plasma 287 MG/DL 65 - 110 H [facility] BUN 8 MG/DL 7 - 21 [facility] al Creatinine [Mass/volume] in Serum or Plasma 0.4 MG/DL 0.7 - 1.5 L [facility] BUN/CREAT 20 8 - 27 [facility] Protein [Mass/volume] in Serum or Plasma 7.8 G/DL 6.3 - 8.2 [facility] Albumin [Mass/volume] in Serum or Plasma 3.8 G/DL 3.9 - 5.0 L [facility] Globulin [Mass/volume] in Serum by calculation 4.0 GM/DL 2.4 - 3.2 H [facility] A/G RATIO 1.0 0.8 - 2.0 [facility] Calcium [Mass/volume] in Serum or Plasma 9.6 MG/DL 8.4 - 10.2 [facility] Bilirubin.total [Mass/volume] in Serum or Plasma 5.5 MG/DL 0.2 - 1.3 H [facility] Alkaline phosphatase [Enzymatic activity/volume] in Serum or Plasma 394 U/L 38 - 126 H [facility] Aspartate aminotransferase [Enzymatic activity/volume] in Serum or Plasma 229 U/L 5 - 40 H [facility] Alanine aminotransferase [Enzymatic activity/volume] in Seru m or Plasma 343 U/L 7 - 56 H [facility] Anion gap 3 in Serum or Plasma 12.0 mmol/L 8.0 - 16.0 [facility] AGE 50 yrs [facility] G[facility] >60 mL/min [facility] AFR AMER GFR >60 mL/min [facility] Male GFR In terprentation 20-49 yrs >60 mL/min Normal 50-59 yrs >56 mL/min Normal 60-69 yrs >49 mL/min Normal 70-79yrs >42 mL/min Normal 80 and above >35 mL/min Normal Female GFR Interpretation 20-39 yrs >60 mL/min Normal 40-49 yrs >58 mL/min Normal 50-59 yrs >51 mL/min Normal 60-69 yrs >45 mL/min Normal 70-79 yrs >39 mL/min Normal 80 and above >32 mL/min Normal ID Date Data Source [id number] 09/29/2020 11:12:00 AM [facility] Value Range Interpretation Code Description Data Valentina rce(s) Supporting Document(s) BNP 43 PG/ML 0 - 125 [facility] ID Date Data Source [id number] 09/29/2020 10:55:00 AM [facility] Value Range Interpretation Code Description Data Valentina rce(s) Supporting Document(s) aPTT in Blood by Coagulation assay 29.4 SECONDS 24.8 - 36.7 [facility] ID Date Data Source [id number] 09/29/2020 10:54:00 AM [facility] Value Range Interpretation Code Description Data Valentina rce(s) Supporting Document(s) Lactate [Moles/volume] in Serum or Plasma 1.7 MMOL/L 0.2 - 2.2 [facility] ID Date Data Source [id number] 08/27/2020 08:32:00 AM EDT [facility] ([facility]) Name Value Range Interpretation Code Description Data Valentina rce(s) Supporting Document(s) Protime 13.6 s 11.0-15.5 [facility] ([facility]) Inr 1.03 0.93-1.23 [facility] ([facility]) PTT 29.2 s 24.8-36.7 [facility] ([facility]) \\BLDo\\INR INTERPRETATION\\BLDx\\ Therapeutic range for Coumadin and related oral anticoagulants. -International Normalized Ratio (INR): 2 .0 - 3.0 for Venous Thrombosis, Pulmonary Embolus, Tissue heart valves, Acute SD Atrial Fibrillation, Valvular heart disease and recurrent Systemic Embolism. -International Normalized Ratio (INR): 2 .5 - 3.5 for Mechanical Prosthetic valve. ID Date Data Source [id number] 08/27/2020 08:32:00 AM EDT [facility] ([facility]) Name Value Range Interpretation Code Description Data Valentina rce(s) Supporting Document(s) Uibc 84 ug/dL 112-347 Below low normal [facility] ( [facility]) Iron 103 ug/dL 42-135 [facility] ([facility]) Tibc 187 ug/dL 250-450 Below low normal [facility] ( [facility]) Iron Sat 55 % [facility] ([facility]) ID Date Data Source [id number] 08/27/2020 08:32:00 AM EDT [facility] ([facility]) Name Value Range Interpretation Code Description Data Valentina rce(s) Supporting Document(s) Potassium 3.8 meq/L 3.6-5.0 [facility] ([facility]) Sodium 134 meq/L 134-153 [facility] ([facility]) Comprehensive Metabo Laboratory test result [facility] ([facility]) COMPREHENSIVE METABOLIC PANEL Chloride 100 meq/L 98-107 [facility] ([facility]) Glucose 325 mg/dL 65-110 Above high normal [facility] ([facility]) Co2 25 meq/L 22-30 [facility] ([facility]) Total Protein 7.9 g/dL 6.3-8.2 [facility] ([facility]) BUN/Creat 14 8-27 [facility] ([facility]) BUN 7 mg/dL 7-21 [facility] ([facility]) Creatinine 0.5 mg/dL 0.7-1.5 Below low normal [facility] ( [facility]) A/G Ratio 0.9 0.8-2.0 [facility] ([facility]) Albumin 3.7 g/dL 3.9-5.0 Below low normal [facility] ( [facility]) Globulin 4.2 GM/DL 2.4-3.2 Above high normal [facility] ([facility]) Calcium 8.9 mg/dL 8.4-10.2 [facility] ([facility]) Alkaline Phos 87 U/L 38-126 [facility] ([facility]) Total Bili 0.9 mg/dL 0.2-1.3 [facility] ([facility]) Anion Gap 9.0 mmol/L 8.0-16.0 [facility] ([facility]) Sgot/Ast 29 U/L 5-40 [facility] ([facility]) SGPT/Alt 36 U/L 7-56 [facility] ([facility]) Non-Aa GFR Laboratory test result [facility] ([facility]) Afr Amer GFR Laboratory test result [facility] ([facility]) Male GFR Interprentation 20-49 yrs >60 mL/min Normal 50-59 yrs >56 mL/min Normal 60-69 yrs >49 mL/min Normal 70-79yrs >42 mL/min Normal 80 and above >35 mL/min Normal Female GFR Interpretation 20-39 yrs >60 mL/min Normal 40-49 yrs >58 mL/min Normal 50-59 yrs >51 mL/min Normal 60-69 yrs >45 mL/min Normal 70-79 yrs >39 mL/min Normal 80 and above >32 mL/min Normal Age 50 yrs [facility] ([facility]) ID Date Data Source [id number] 08/27/2020 08:32:00 AM EDT [facility] ([facility]) Name Value Range Interpretation Code Description Data Valentina rce(s) Supporting Document(s) Ferritin [Mass/volume] in Serum or Plasma 870.9 ng/mL 5.0-244 Above high normal [facility] ([facility]) ID Date Data Source [id number] 08/27/2020 08:32:00 AM EDT [facility] ([facility]) Name Value Range Interpretation Code Description Data Valentina rce(s) Supporting Document(s) CBC W/Automated Diff Laboratory test result [facility] ([facility]) COMPLETE BLOOD COUNT RBC 4.68 10^6/uL 4.50-6.30 [facility] ([facility]) Hemoglobin 15.0 g/dL 14.0-16.0 [facility] ([facility]) WBC 2.2 10^3/uL 4.2-11.0 Below low normal [facility] ([facility]) MCHC 34.4 g/dL 31.0-36.0 [facility] ([facility]) MCH 32.1 pg 27.0-34.0 [facility] ([facility]) MCV 93.2 fL 80.0-94.0 [facility] ([facility]) Hematocrit 43.6 % 41.0-51.0 [facility] ([facility]) RDW 13.0 % 11.5-14.8 [facility] ([facility]) MPV 9.4 fL 7.4-10.4 [facility] ([facility]) Platelets 117 10^3/uL 150-450 Below low normal [facility] ([facility]) Lymph 37.2 % 25.0-40.0 [facility] ([facility]) Neut 41.9 % 37.0-80.0 [facility] ([facility]) [place] 18.1 % 3.0-8.0 Above high normal [facility] ([facility]) %Ig 0.0 % 0.0-0.0 [facility] ([facility]) Baso 0.5 % 0.0-2.0 [facility] ([facility]) Eos 2.3 % 0.0-7.0 [facility] ([facility]) %NRBC 0.0 % 0.0-0.0 [facility] ([facility]) #Lymph 0.80 10^3/uL 0.60-3.40 [facility] ([facility]) #Neut 0.90 10^3/uL 2.00-6.90 Below low normal [facility] ([facility]) #Eos 0.05 10^3/uL 0.00-0.70 [facility] ([facility]) #Baso 0.01 10^3/uL 0.00-0.20 [facility] ([facility]) #[place] 0.39 10^3/uL 0.00-0.90 [facility] ([facility]) #NRBC 0.00 10^3/uL 0.00-0.00 [facility] ([facility]) Manual Diff Laboratory test result [facility] ([facility]) #Ig 0.00 10^3/uL 0.00-0.10 [facility] ([facility]) Segs 49 % 37-80 [facility] ([facility]) %[place] 10 % 3-8 Above high normal [facility] ([facility]) %Eos 1 % 0-7 [facility] ([facility]) %Lymph 40 % 25-40 [facility] ([facility]) RBC Morph Laboratory test result [facility] ([facility]) { SICKLE CELL (NORMAL: NONE SEEN ) PLT Est Laboratory test result Abnormal (applies to non -numeric results) [facility] ([facility]) COMMENT: ID Date Data Source [id number] 08/27/2020 09:45:00 AM EDT [facility] Name Value Range Interpretation Code Description Data Valentina rce(s) Supporting Document(s) CBC W/AUTOMATED DIFF [facility] COMPLETE BLOOD COUNT Leukocytes [#/volume] in Blood by Automated count 2.2 10^3/uL 4.2 - 1 1.0 L [facility] Erythrocytes [#/volume] in Blood by Automated count 4.68 10^6/uL 4. 50 - 6.30 [facility] Hemoglobin [Mass/volume] in Blood 15.0 g/dL 14.0 - 16.0 [facility] Hematocrit [Volume Fraction] of Blood by Automated count 43.6 % 4 1.0 - 51.0 [facility] Erythrocyte mean corpuscular volume [Entitic volume] by Auto mated count 93.2 fL 80.0 - 94.0 [facility] Erythrocyte mean corpuscular hemoglobin [Entitic mass] by Automated count 32.1 pg 27.0 - 34.0 [facility] Erythrocyte mean corpuscular hemoglobin concentration [Mass/volume] by Automated count 34.4 g/dL 31.0 - 36.0 [facility] Erythrocyte distribution width [Ratio] by Automated count 13.0 % 11.5 - 14.8 [facility] Platelets [#/volume] in Blood by Automated count 117 10^3/uL 150 - 45 0 L [facility] Platelet mean volume [Entitic volume] in Blood by Automated count 9.4 fL 7.4 - 10.4 [facility] Neutrophils/100 leukocytes in Blood by Automated count 41.9 % 37. 0 - 80.0 [facility] Lymphocytes/100 leukocytes in Blood by Manual count 37.2 % 25.0 - 40.0 [facility] Monocytes/100 leukocytes in Blood by Automated count 18.1 % 3.0 - 8.0 H [facility] Eosinophils/100 leukocytes in Blood by Automated count 2.3 % 0.0 - 7.0 [facility] Basophils/100 leukocytes in Blood by Automated count 0.5 % 0.0 - 2.0 [facility] %IG 0.0 % 0.0 - 0.[facility] %NRBC 0.0 % 0.0 - 0.0 [facility] al Neutrophils [#/volume] in Blood by Automated count 0.90 10^3/uL 2.00 - 6.90 L [facility] Lymphocytes [#/volume] in Blood by Automated count 0.80 10^3/uL 0.60 - 3.40 [facility] Monocytes [#/volume] in Blood by Automated count 0.39 10^3/uL 0.00 - 0.90 [facility] Eosinophils [#/volume] in Blood by Automated count 0.05 10^3/uL 0.00 - 0.70 [facility] Basophils [#/volume] in Blood by Automated count 0.01 10^3/uL 0.00 - 0.20 [facility] #IG 0.00 10^3/uL 0.00 - 0.10 [facility] #NRBC 0.00 10^3/uL 0.00 - 0.00 [facility] MANUAL DIFF SEE BELOW [facility] Segmented neutrophils/100 leukocytes in Blood by Manual count 49 % 37 - 80 [facility] %LYMPH 40 % 25 - 40 [facility] %MONO 10 % 3 - 8 H [facility] %EOS 1 % 0 - 7 [facility] RBC MORPH SEE BELOW [facility] { SICKLE CELL (NORMAL: NONE SEEN ) Platelet adequacy [Presence] in Blood by Light microscopy DE CREASED NORMAL: NORMAL A [facility] COMMENT: ID Date Data Source [id number] 08/27/2020 09:39:00 AM EDT [facility] Name Value Range Interpretation Code Description Data Valentina rce(s) Supporting Document(s) Ferritin [Mass/volume] in Serum or Plasma 870.9 ng/mL 5.0 - 244 H [facility] ID Date Data Source [id number] 08/27/2020 09:28:00 AM EDT [facility] Name Value Range Interpretation Code Description Data Valentina rce(s) Supporting Document(s) Iron [Mass/volume] in Serum or Plasma 103 UG/DL 42 - 135 [facility] Iron binding capacity.unsaturated [Mass/volume] in Serum or Plasma 84 UG/DL 112 - 347 L [facility] Iron binding capacity [Mass/volume] in Serum or Plasma 187 ug/dL 250 - 450 L [facility] Iron saturation [Mass Fraction] in Serum or Plasma 55 % [facility] ID Date Data Source [id number] 08/27/2020 09:28:00 AM EDT [facility] Name Value Range Interpretation Code Description Data Valentina e(s) Supporting Document(s) COMPREHENSIVE METABOLIC PANEL [facility] COMPREHENSIVE METABOLIC PANEL Sodium [Moles/volume] in Serum or Plasma 134 mEq/L 134 - 153 [facility] Potassium [Moles/volume] in Serum or Plasma 3.8 mEq/L 3.6 - 5.0 [facility] Chloride [Moles/volume] in Serum or Plasma 100 mEq/L 98 - 107 [facility] Carbon dioxide, total [Moles/volume] in Serum or Plasma 25 MEQ/L 22 - 30 [facility] Glucose [Mass/volume] in Serum or Plasma 325 MG/DL 65 - 110 H [facility] BUN 7 MG/DL 7 - 21 [facility] Creatinine [Mass/volume] in Serum or Plasma 0.5 MG/DL 0.7 - 1.5 L [facility] BUN/CREAT 14 8 - 27 [facility] Protein [Mass/volume] in Serum or Plasma 7.9 G/DL 6.3 - 8.2 [facility] Albumin [Mass/volume] in Serum or Plasma 3.7 G/DL 3.9 - 5.0 L [facility] Globulin [Mass/volume] in Serum by calculation 4.2 GM/DL 2.4 - 3.2 H [facility] A/G RATIO 0.9 0.8 - 2.0 [facility] Calcium [Mass/volume] in Serum or Plasma 8.9 MG/DL 8.4 - 10.2 [facility] Bilirubin.total [Mass/volume] in Serum or Plasma 0.9 MG/DL 0.2 - 1.3 [facility] Alkaline phosphatase [Enzymatic activity/volume] in Serum or Plasma 87 U/L 38 - 126 [facility] Aspartate aminotransferase [Enzymatic activity/volume] in Serum or Plasma 29 U/L 5 - 40 [facility] Alanine aminotransferase [Enzymatic activity/volume] in Seru m or Plasma 36 U/L 7 - 56 [facility] Anion gap 3 in Serum or Plasma 9.0 mmol/L 8.0 - 16.0 [facility] AGE 50 yrs [facility] al NON-AA GFR >60 mL/min [facility] AFR AMER GFR >60 mL/min [facility] Male GFR In terprentation 20-49 yrs >60 mL/min Normal 50-59 yrs >56 mL/min Normal 60-69 yrs >49 mL/min Normal 70-79yrs >42 mL/min Normal 80 and above >35 mL/min Normal Female GFR Interpretation 20-39 yrs >60 mL/min Normal 40-49 yrs >58 mL/min Normal 50-59 yrs >51 mL/min Normal 60-69 yrs >45 mL/min Normal 70-79 yrs >39 mL/min Normal 80 and above >32 mL/min Normal ID Date Data Source [id number] 08/27/2020 08:53:00 AM EDT [facility] Name Value Range Interpretation Code Description Data Valentina rce(s) Supporting Document(s) Prothrombin time (PT) 13.6 SECONDS 11.0 - 15.5 [facility] INR in Platelet poor plasma by Coagulation assay 1.03 0.93 - 1. 23 [facility] aPTT in Blood by Coagulation assay 29.2 SECONDS 24.8 - 36.7 [facility] \\BLDo\\INR INTERPRETATION\\BLDx\\ Therapeutic range for Coumadin and related oral anticoagulants. - International Normalized Ratio (INR): 2.0 - 3.0 for Venous Thrombosis, Pulmonary Embolus, Tissue heart valves, Acute SD Atrial Fibrillation, Valvular heart disease and recurrent Systemic Embolism. - International Normalized Ratio (INR): 2.5 - 3.5 for Mechanical Prosthetic valve. ID Date Data Source [id number] 07/17/2020 09:15:00 AM EDT [facility] ([facility]) Name Value Range Interpretation Code Description Data Valentina rce(s) Supporting Document(s) Culture Wound Laboratory test result [facility] ([facility]) {SPECIMEN SOURCE : R CHEST ABCESS ID Date Data Source [id number] 07/21/2020 10:44:00 PM EDT [facility] Name Value Range Interpretation Code Description Data Valentina rce(s) Supporting Document(s) CULTURE WOUND [facility] _CULTURE WOUND_$$[id number]$$[id number]$$[id number]$$[id number]$$[id number]$$[id number] DATE/TIME: 07/21/2020 12:05Culture: CULTURE WOUND Status: FinalAerobic Bacterial Culture: P1Skin lilliam isolatedScant growth Previous result entered on 07/20/2020 13:20 ET Microbiological testing to rule out the presence of possible pathogensis in progress.Isolate 1 Beta hemolytic Streptococcus, group A Flag: A . . . . . . .4Moderate growthPenicillin and ampicillin are drugs of choice for treatment ofbeta-hemolytic streptococcal infections. Susceptibility testing ofpenicillins and other beta-lactam agents approved by the FDA fortreatment of beta-hemolytic streptococcal infections need not beperformed routinely because nonsusceptible isolates are extremelyrare in any beta- hemolytic streptococcus and have not been reportedfor Streptococcus pyogenes (group A). (CLSI) Previous result entered on 07/20/2020 13:20 ET -- Continued on next page --Patient: DENISHA Gutierrez Order: [id number] Page 2Culture: CULTURE WOUND Status: Final ====Beta hemolytic Streptococcus, group A Previous result entered on 07/19/2020 05:40 ET Beta hemolytic Streptococcus, group ABeta hemolytic Streptococcus, group A Flag: AP1 Test performed by: Anastasiya VILLEGAS #: [id number] [address] [id number] [facility] [id number] Director : Jasiel Pedraza MD NPI #:Pelletizer Tender : 07/19/20.0829.XMT.SENT REF 07/20/20.2300.XMT.SENT REF 07/21/20.2243.XMT.SENT REF 07/21/20.2243.DW .to ANGIE via fax ID Date Data Source [id number] 06/27/2020 09:46:00 AM EDT [facility] [address] [place] [address] PHONE: [phone] FAX: [phone] Name .................. : DENISHA BERMUDEZ Matt Acct Number.................. : [id number] ROOM. ................. : Number ................... : [id number] Stay type ............. : CLINIC Discharge Date......... ... : 06/25/20 Admit Date ...... ... : 06/25/20 Admit Phys .................... : INGRAMELIS Date of ....... : 1970 Family Phys ................... : CLAKR HARD Phone .................. : [phone] Age ................................ : 50 Film# .................. .:[id number] Sex ................................. : M Unsigned transcriptions are preliminary reports and do not represent a medical or legal document CT ABD & PELV W/ORAL/IV CONTR [id number] COMPLETE:06/25/20 13:30 LANA [id number] (REASON FOR ABDOMEN: ABD PAIN CT OF THE ABDOMEN AND PELVIS WITH CONTRAST: FINDINGS: The visualized lower lungs are clear. No infiltrates or effusion. There is a lobulated contour of the liver. No enhancing liver lesions. The gallbladder is absent. The pancreas and spleen are within normal limits. 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 The bilateral adrenal glands and kidneys are unremarkable. No renal stones or hydronephrosis. The ureters are unremarkable. No aneurysmal dilatation of the aorta. No retroperitoneal adenopathy. Oral contrast was given. No bowel obstruction. Oral contrast to the rectum. The prostate gland and seminal vesicles are unremarkable. The urinary bladder is unremarkable. The osseous structures are unremarkable. IMPRESSION: Cirrhotic appearing liver with lobulated contour. No ascites. No enhancing liver lesion. No adenopathy. No free air or free fluid. The bowels are unremarkable. No obstruction. While performing the above CT examination, radiation dose reduction was accomplished utilizing automated exposure control, adjusting of the mA and kV based on the patient's body size and/or the use of imperative reconstructive techniques. CT dose: 2332.2 mGycm Page 1 of 2 [place] [address] PHONE: [phone] FAX: [phone] Name .................. : DENISHA Gutierrez Acct Number.................. : [id number] ROOM. ................. : Number ................... : [id number] Stay type ............. : CLINIC Discharge Date......... ... : 06/25/20 Admit Date ......... : 06/25/20 Admit Phys .................... : INGRAMELIS Date of ....... : 1970 Family Phys ................... : CLARK HARD Phone .................. : [phone] Age ................................ : 50 Film# .................. .:[id number] Sex ................................. : M Unsigned transcriptions are preliminary reports and do not represent a medical or legal document CT ABD & PELV W/ORAL/IV CONTR [id number] COMPLETE:06/25/20 13:30 LANA [id number] (REASON FOR ABDOMEN: ABD PAIN Contrast agent in mL: 75 Isovue 370 Method of administration: Intravenous Electronically Reviewed and Signed By Ramesh Mcclelland MD , 06/27/20 09:46, DINA Transcribe Initials: DZ , Transcribe Date: 06/26/20 00:58, Dictation Date: Page 2 of 2 Name Value Range Interpretation Code Description Data Valentina rce(s) Supporting Document(s) ID Date Data Source [id number] 06/25/2020 07:59:00 AM EDT [facility] ([facility]) Name Value Range Interpretation Code Description Data Valentina rce(s) Supporting Document(s) CT Abd & Pelv W/Oral/IV Contrast Laboratory test result [facility] ([facility]) ID Date Data Source [id number] 06/25/2020 07:53:00 AM EDT [facility] ([facility]) Name Value Range Interpretation Code Description Data Valentina rce(s) Supporting Document(s) Amylase [Enzymatic activity/volume] in Serum or Plasma 92 U/L 30- 110 [facility] ([facility]) FASTING 8 HOUR~.~.~<DG1.3.1>R10.84</DG1.3.1><DG1.3.1>R10.84</DG1.3.1><DG1.3.1>R10.84</DG1. 3.1><DG Lipase [Enzymatic activity/volume] in Serum or Plasma 63 U/L 13-60 Above high normal [facility] ([facility]) FASTING 8 HOUR~.~.~<DG1.3.1>R10.84</DG1.3.1><DG1.3.1>R10.84</DG1.3.1><DG1.3.1>R10.84</DG1. 3.1><DG Calcidiol [Mass/volume] in Serum or Plasma 19 ng/mL [facility] ([facility]) FASTING 8 HOUR~.~.~<DG1.3.1>R10.84</DG1.3.1><DG1.3.1>R10.84</DG1.3.1><DG1.3.1>R10.84</DG1. 3.1><DG ID Date Data Source [id number] 06/25/2020 07:53:00 AM EDT [facility] ([facility]) Name Value Range Interpretation Code Description Data Valentina rce(s) Supporting Document(s) Cve Panel Laboratory test result [facility] ([facility]) FASTING 8 HOUR~.~.~<DG1.3.1>R10.84</DG1.3.1><DG1.3.1>R10.84</DG1.3.1><DG1.3.1>R10.84</DG1. 3.1><DG HDL 49 mg/dL 29-86 [facility] ([facility]) FASTING 8 HOUR~.~.~<DG1.3.1>R10.84</DG1.3.1><DG1.3.1>R10.84</DG1.3.1><DG1.3.1>R10.84</DG1. 3.1><DG Cholesterol 131 mg/dL 131-200 [facility] ([facility]) FASTING 8 HOUR~.~.~<DG1.3.1>R10.84</DG1.3.1><DG1.3.1>R10.84</DG1.3.1><DG1.3.1>R10.84</DG1. 3.1><DG Triglycerides 138 mg/dL 35-160 [facility] ([facility]) FASTING 8 HOUR~.~.~<DG1.3.1>R10.84</DG1.3.1><DG1.3.1>R10.84</DG1.3.1><DG1.3.1>R10.84</DG1. 3.1><DG LDL/HDL 1.24 1.00-3.55 [facility] ([facility]) FASTING 8 HOUR~.~.~<DG1.3.1>R10.84</DG1.3.1><DG1.3.1>R10.84</DG1.3.1><DG1.3.1>R10.84</DG1. 3.1><DG Risk Factor 2.7 3.4-4.9 Below low normal [facility] ([facility]) FASTING 8 HOUR~.~.~<DG1.3.1>R10.84</DG1.3.1><DG1.3.1>R10.84</DG1.3.1><DG1.3.1>R10.84</DG1. 3.1><DG LDL 61 mg/dL 65-175 Below low normal [facility] ([facility]) FASTING 8 HOUR~.~.~<DG1.3.1>R10.84</DG1.3.1><DG1.3.1>R10.84</DG1.3.1><DG1.3.1>R10.84</DG1. 3.1><DG ID Date Data Source [id number] 06/25/2020 07:53:00 AM EDT [facility] ([facility]) Name Value Range Interpretation Code Description Data Valentina rce(s) Supporting Document(s) Hemoglobin A1c/Hemoglobin.total in Blood 8.2 % 4.4-6.1 Above high normal [facility] ([facility]) FASTING 8 HOUR~.~.~<DG1.3.1>R10.84</DG1.3.1><DG1.3.1>R10.84</DG1.3.1><DG1.3.1>R10.84</DG1. 3.1><DG Thyrotropin [Units/volume] in Serum or Plasma 2.06 uIU/mL 0.47-5.01 [facility] ([facility]) FASTING 8 HOUR~.~.~<DG1.3.1>R10.84</DG1.3.1><DG1.3.1>R10.84</DG1.3.1><DG1.3.1>R10.84</DG1. 3.1><DG ID Date Data Source [id number] 06/25/2020 07:53:00 AM EDT [facility] ([facility]) Name Value Range Interpretation Code Description Data Valentina rce(s) Supporting Document(s) Comprehensive Metabo Laboratory test result [facility] ([facility]) FASTING 8 HOUR~.~.~<DG1.3.1>R10.84</DG1.3.1><DG1.3.1>R10.84</DG1.3.1><DG1.3.1>R10.84</DG1. 3.1><DG Chloride 103 meq/L 98-107 [facility] ([facility]) FASTING 8 HOUR~.~.~<DG1.3.1>R10.84</DG1.3.1><DG1.3.1>R10.84</DG1.3.1><DG1.3.1>R10.84</DG1. 3.1><DG Sodium 137 meq/L 134-153 [facility] ([facility]) FASTING 8 HOUR~.~.~<DG1.3.1>R10.84</DG1.3.1><DG1.3.1>R10.84</DG1.3.1><DG1.3.1>R10.84</DG1. 3.1><DG Potassium 3.7 meq/L 3.6-5.0 [facility] ([facility]) FASTING 8 HOUR~.~.~<DG1.3.1>R10.84</DG1.3.1><DG1.3.1>R10.84</DG1.3.1><DG1.3.1>R10.84</DG1. 3.1><DG Glucose 164 mg/dL 65-110 Above high normal [facility] ([facility]) FASTING 8 HOUR~.~.~<DG1.3.1>R10.84</DG1.3.1><DG1.3.1>R10.84</DG1.3.1><DG1.3.1>R10.84</DG1. 3.1><DG Co2 26 meq/L 22-30 [facility] ([facility]) FASTING 8 HOUR~.~.~<DG1.3.1>R10.84</DG1.3.1><DG1.3.1>R10.84</DG1.3.1><DG1.3.1>R10.84</DG1. 3.1><DG BUN 7 mg/dL 7-21 [facility] ([facility]) FASTING 8 HOUR~.~.~<DG1.3.1>R10.84</DG1.3.1><DG1.3.1>R10.84</DG1.3.1><DG1.3.1>R10.84</DG1. 3.1><DG Creatinine 0.6 mg/dL 0.7-1.5 Below low normal [facility] ( [facility]) FASTING 8 HOUR~.~.~<DG1.3.1>R10.84</DG1.3.1><DG1.3.1>R10.84</DG1.3.1><DG1.3.1>R10.84</DG1. 3.1><DG Total Protein 7.8 g/dL 6.3-8.2 [facility] ([facility]) FASTING 8 HOUR~.~.~<DG1.3.1>R10.84</DG1.3.1><DG1.3.1>R10.84</DG1.3.1><DG1.3.1>R10.84</DG1. 3.1><DG BUN/Creat 12 8-27 [facility] ([facility]) FASTING 8 HOUR~.~.~<DG1.3.1>R10.84</DG1.3.1><DG1.3.1>R10.84</DG1.3.1><DG1.3.1>R10.84</DG1. 3.1><DG Globulin 3.7 GM/DL 2.4-3.2 Above high normal [facility] ([facility]) FASTING 8 HOUR~.~.~<DG1.3.1>R10.84</DG1.3.1><DG1.3.1>R10.84</DG1.3.1><DG1.3.1>R10.84</DG1. 3.1><DG A/G Ratio 1.1 0.8-2.0 [facility] ([facility]) FASTING 8 HOUR~.~.~<DG1.3.1>R10.84</DG1.3.1><DG1.3.1>R10.84</DG1.3.1><DG1.3.1>R10.84</DG1. 3.1><DG Albumin 4.1 g/dL 3.9-5.0 [facility] ([facility]) FASTING 8 HOUR~.~.~<DG1.3.1>R10.84</DG1.3.1><DG1.3.1>R10.84</DG1.3.1><DG1.3.1>R10.84</DG1. 3.1><DG Calcium 8.8 mg/dL 8.4-10.2 [facility] ([facility]) FASTING 8 HOUR~.~.~<DG1.3.1>R10.84</DG1.3.1><DG1.3.1>R10.84</DG1.3.1><DG1.3.1>R10.84</DG1. 3.1><DG Total Bili 0.9 mg/dL 0.2-1.3 [facility] ([facility]) FASTING 8 HOUR~.~.~<DG1.3.1>R10.84</DG1.3.1><DG1.3.1>R10.84</DG1.3.1><DG1.3.1>R10.84</DG1. 3.1><DG Alkaline Phos 78 U/L 38-126 [facility] ([facility]) FASTING 8 HOUR~.~.~<DG1.3.1>R10.84</DG1.3.1><DG1.3.1>R10.84</DG1.3.1><DG1.3.1>R10.84</DG1. 3.1><DG SGPT/Alt 37 U/L 7-56 [facility] ([facility]) FASTING 8 HOUR~.~.~<DG1.3.1>R10.84</DG1.3.1><DG1.3.1>R10.84</DG1.3.1><DG1.3.1>R10.84</DG1. 3.1><DG Sgot/Ast 30 U/L 5-40 [facility] ([facility]) FASTING 8 HOUR~.~.~<DG1.3.1>R10.84</DG1.3.1><DG1.3.1>R10.84</DG1.3.1><DG1.3.1>R10.84</DG1. 3.1><DG Anion Gap 8.0 mmol/L 8.0-16.0 [facility] ([facility]) FASTING 8 HOUR~.~.~<DG1.3.1>R10.84</DG1.3.1><DG1.3.1>R10.84</DG1.3.1><DG1.3.1>R10.84</DG1. 3.1><DG Age 50 yrs [facility] ([facility]) FASTING 8 HOUR~.~.~<DG1.3.1>R10.84</DG1.3.1><DG1.3.1>R10.84</DG1.3.1><DG1.3.1>R10.84</DG1. 3.1><DG Non-Aa GFR Laboratory test result [facility] ([facility]) FASTING 8 HOUR~.~.~<DG1.3.1>R10.84</DG1.3.1><DG1.3.1>R10.84</DG1.3.1><DG1.3.1>R10.84</DG1. 3.1><DG Afr Amer GFR Laboratory test result [facility] ([facility]) FASTING 8 HOUR~.~.~<DG1.3.1>R10.84</DG1.3.1><DG1.3.1>R10.84</DG1.3.1><DG1.3.1>R10.84</DG1. 3.1><DG ID Date Data Source [id number] 06/25/2020 07:53:00 AM EDT [facility] ([facility]) Name Value Range Interpretation Code Description Data Valentina rce(s) Supporting Document(s) CBC W/Automated Diff Laboratory test result [facility] ([facility]) FASTING 8 HOUR~.~.~<DG1.3.1>R10.84</DG1.3.1><DG1.3.1>R10.84</DG1.3.1><DG1.3.1>R10.84</DG1. 3.1><DG RBC 4.93 10^6/uL 4.50-6.30 [facility] ([facility]) FASTING 8 HOUR~.~.~<DG1.3.1>R10.84</DG1.3.1><DG1.3.1>R10.84</DG1.3.1><DG1.3.1>R10.84</DG1. 3.1><DG WBC 1.9 10^3/uL 4.2-11.0 Below low normal [facility] ([facility]) FASTING 8 HOUR~.~.~<DG1.3.1>R10.84</DG1.3.1><DG1.3.1>R10.84</DG1.3.1><DG1.3.1>R10.84</DG1. 3.1><DG Hemoglobin 15.7 g/dL 14.0-16.0 [facility] ([facility]) FASTING 8 HOUR~.~.~<DG1.3.1>R10.84</DG1.3.1><DG1.3.1>R10.84</DG1.3.1><DG1.3.1>R10.84</DG1. 3.1><DG Hematocrit 46.0 % 41.0-51.0 [facility] ([facility]) FASTING 8 HOUR~.~.~<DG1.3.1>R10.84</DG1.3.1><DG1.3.1>R10.84</DG1.3.1><DG1.3.1>R10.84</DG1. 3.1><DG MCHC 34.1 g/dL 31.0-36.0 [facility] ([facility]) FASTING 8 HOUR~.~.~<DG1.3.1>R10.84</DG1.3.1><DG1.3.1>R10.84</DG1.3.1><DG1.3.1>R10.84</DG1. 3.1><DG MCV 93.3 fL 80.0-94.0 [facility] ([facility]) FASTING 8 HOUR~.~.~<DG1.3.1>R10.84</DG1.3.1><DG1.3.1>R10.84</DG1.3.1><DG1.3.1>R10.84</DG1. 3.1><DG MCH 31.8 pg 27.0-34.0 [facility] ([facility]) FASTING 8 HOUR~.~.~<DG1.3.1>R10.84</DG1.3.1><DG1.3.1>R10.84</DG1.3.1><DG1.3.1>R10.84</DG1. 3.1><DG RDW 14.1 % 11.5-14.8 [facility] ([facility]) FASTING 8 HOUR~.~.~<DG1.3.1>R10.84</DG1.3.1><DG1.3.1>R10.84</DG1.3.1><DG1.3.1>R10.84</DG1. 3.1><DG Platelets 114 10^3/uL 150-450 Below low normal [facility] ([facility]) FASTING 8 HOUR~.~.~<DG1.3.1>R10.84</DG1.3.1><DG1.3.1>R10.84</DG1.3.1><DG1.3.1>R10.84</DG1. 3.1><DG MPV 9.7 fL 7.4-10.4 [facility] ([facility]) FASTING 8 HOUR~.~.~<DG1.3.1>R10.84</DG1.3.1><DG1.3.1>R10.84</DG1.3.1><DG1.3.1>R10.84</DG1. 3.1><DG Lymph 41.9 % 25.0-40.0 Above high normal [facility] ([facility]) FASTING 8 HOUR~.~.~<DG1.3.1>R10.84</DG1.3.1><DG1.3.1>R10.84</DG1.3.1><DG1.3.1>R10.84</DG1. 3.1><DG Neut 31.3 % 37.0-80.0 Below low normal [facility] ( [facility]) FASTING 8 HOUR~.~.~<DG1.3.1>R10.84</DG1.3.1><DG1.3.1>R10.84</DG1.3.1><DG1.3.1>R10.84</DG1. 3.1><DG [place] 23.1 % 3.0-8.0 Above high normal [facility] ([facility]) FASTING 8 HOUR~.~.~<DG1.3.1>R10.84</DG1.3.1><DG1.3.1>R10.84</DG1.3.1><DG1.3.1>R10.84</DG1. 3.1><DG Baso 0.5 % 0.0-2.0 [facility] ([facility]) FASTING 8 HOUR~.~.~<DG1.3.1>R10.84</DG1.3.1><DG1.3.1>R10.84</DG1.3.1><DG1.3.1>R10.84</DG1. 3.1><DG Eos 3.2 % 0.0-7.0 [facility] ([facility]) FASTING 8 HOUR~.~.~<DG1.3.1>R10.84</DG1.3.1><DG1.3.1>R10.84</DG1.3.1><DG1.3.1>R10.84</DG1. 3.1><DG %NRBC 0.0 % 0.0-0.0 [facility] ([facility]) FASTING 8 HOUR~.~.~<DG1.3.1>R10.84</DG1.3.1><DG1.3.1>R10.84</DG1.3.1><DG1.3.1>R10.84</DG1. 3.1><DG #Neut 0.58 10^3/uL 2.00-6.90 Below low normal [facility] ([facility]) FASTING 8 HOUR~.~.~<DG1.3.1>R10.84</DG1.3.1><DG1.3.1>R10.84</DG1.3.1><DG1.3.1>R10.84</DG1. 3.1><DG %Ig 0.0 % 0.0-0.0 [facility] ([facility]) FASTING 8 HOUR~.~.~<DG1.3.1>R10.84</DG1.3.1><DG1.3.1>R10.84</DG1.3.1><DG1.3.1>R10.84</DG1. 3.1><DG #[place] 0.43 10^3/uL 0.00-0.90 [facility] ([facility]) FASTING 8 HOUR~.~.~<DG1.3.1>R10.84</DG1.3.1><DG1.3.1>R10.84</DG1.3.1><DG1.3.1>R10.84</DG1. 3.1><DG #Lymph 0.78 10^3/uL 0.60-3.40 [facility] ([facility]) FASTING 8 HOUR~.~.~<DG1.3.1>R10.84</DG1.3.1><DG1.3.1>R10.84</DG1.3.1><DG1.3.1>R10.84</DG1. 3.1><DG #Baso 0.01 10^3/uL 0.00-0.20 [facility] ([facility]) FASTING 8 HOUR~.~.~<DG1.3.1>R10.84</DG1.3.1><DG1.3.1>R10.84</DG1.3.1><DG1.3.1>R10.84</DG1. 3.1><DG #Eos 0.06 10^3/uL 0.00-0.70 [facility] ([facility]) FASTING 8 HOUR~.~.~<DG1.3.1>R10.84</DG1.3.1><DG1.3.1>R10.84</DG1.3.1><DG1.3.1>R10.84</DG1. 3.1><DG #Ig 0.00 10^3/uL 0.00-0.10 [facility] ([facility]) FASTING 8 HOUR~.~.~<DG1.3.1>R10.84</DG1.3.1><DG1.3.1>R10.84</DG1.3.1><DG1.3.1>R10.84</DG1. 3.1><DG Manual Diff Laboratory test result [facility] ([facility]) FASTING 8 HOUR~.~.~<DG1.3.1>R10.84</DG1.3.1><DG1.3.1>R10.84</DG1.3.1><DG1.3.1>R10.84</DG1. 3.1><DG #NRBC 0.00 10^3/uL 0.00-0.00 [facility] ([facility]) FASTING 8 HOUR~.~.~<DG1.3.1>R10.84</DG1.3.1><DG1.3.1>R10.84</DG1.3.1><DG1.3.1>R10.84</DG1. 3.1><DG Band 1 % 0-5 [facility] ([facility]) FASTING 8 HOUR~.~.~<DG1.3.1>R10.84</DG1.3.1><DG1.3.1>R10.84</DG1.3.1><DG1.3.1>R10.84</DG1. 3.1><DG Segs 31 % 37-80 Below low normal [facility] ([facility]) FASTING 8 HOUR~.~.~<DG1.3.1>R10.84</DG1.3.1><DG1.3.1>R10.84</DG1.3.1><DG1.3.1>R10.84</DG1. 3.1><DG %Lymph 53 % 25-40 Above high normal [facility] ([facility]) FASTING 8 HOUR~.~.~<DG1.3.1>R10.84</DG1.3.1><DG1.3.1>R10.84</DG1.3.1><DG1.3.1>R10.84</DG1. 3.1><DG %Eos 1 % 0-7 [facility] ([facility]) FASTING 8 HOUR~.~.~<DG1.3.1>R10.84</DG1.3.1><DG1.3.1>R10.84</DG1.3.1><DG1.3.1>R10.84</DG1. 3.1><DG %[place] 14 % 3-8 Above high normal [facility] ([facility]) FASTING 8 HOUR~.~.~<DG1.3.1>R10.84</DG1.3.1><DG1.3.1>R10.84</DG1.3.1><DG1.3.1>R10.84</DG1. 3.1><DG RBC Morph Laboratory test result [facility] ([facility]) FASTING 8 HOUR~.~.~<DG1.3.1>R10.84</DG1.3.1><DG1.3.1>R10.84</DG1.3.1><DG1.3.1>R10.84</DG1. 3.1><DG PLT Est Laboratory test result Abnormal (applies to non -numeric results) [facility] ([facility]) FASTING 8 HOUR~.~.~<DG1.3.1>R10.84</DG1.3.1><DG1.3.1>R10.84</DG1.3.1><DG1.3.1>R10.84</DG1. 3.1><DG ID Date Data Source [id number] 06/25/2020 10:23:00 AM EDT [facility] Name Value Range Interpretation Code Description Data Valentina rce(s) Supporting Document(s) Thyrotropin [Units/volume] in Serum or Plasma by Detec tion limit <= 0.05 mIU/L 2.06 uIU/mL 0.47 - 5.01 [facility] ID Date Data Source [id number] 06/25/2020 10:23:00 AM T [facility] Name Value Range Interpretation Code Description Data Valentina rce(s) Supporting Document(s) Calcidiol [Moles/volume] in Serum or Plasma 19 NG/ML [facility] VITAMIN-D(2 5HYDROXY) Deficiency: <=20 ng/ml Insufficiency: 21-29 ng/ml Preferred level: => 30 ng/ml ID Date Data Source [id number] 06/25/2020 10:15:00 AM T [facility] Name Value Range Interpretation Code Description Data Valentina rce(s) Supporting Document(s) CBC W/AUTOMATED DIFF [facility] COMPLETE BLOOD COUNT Leukocytes [#/volume] in Blood by Automated count 1.9 10^3/uL 4.2 - 1 1.0 L [facility] Erythrocytes [#/volume] in Blood by Automated count 4.93 10^6/uL 4. 50 - 6.30 [facility] Hemoglobin [Mass/volume] in Blood 15.7 g/dL 14.0 - 16.0 [facility] Hematocrit [Volume Fraction] of Blood by Automated count 46.0 % 4 1.0 - 51.0 [facility] Erythrocyte mean corpuscular volume [Entitic volume] by Auto mated count 93.3 fL 80.0 - 94.0 [facility] Erythrocyte mean corpuscular hemoglobin [Entitic mass] by Automated count 31.8 pg 27.0 - 34.0 [facility] Erythrocyte mean corpuscular hemoglobin concentration [Mass/volume] by Automated count 34.1 g/dL 31.0 - 36.0 [facility] Erythrocyte distribution width [Ratio] by Automated count 14.1 % 11.5 - 14.8 [facility] Platelets [#/volume] in Blood by Automated count 114 10^3/uL 150 - 45 0 L [facility] Platelet mean volume [Entitic volume] in Blood by Automated count 9.7 fL 7.4 - 10.4 [facility] Neutrophils/100 leukocytes in Blood by Automated count 31.3 % 37. 0 - 80.0 L [facility] Lymphocytes/100 leukocytes in Blood by Manual count 41.9 % 25.0 - 40.0 H [facility] Monocytes/100 leukocytes in Blood by Automated count 23.1 % 3.0 - 8.0 H [facility] Eosinophils/100 leukocytes in Blood by Automated count 3.2 % 0.0 - 7.0 [facility] Basophils/100 leukocytes in Blood by Automated count 0.5 % 0.0 - 2.0 [facility] %IG 0.0 % [facility].0 [facility] % 0.0 - 0.0 [facility] Neutrophils [#/volume] in Blood by Automated count 0.58 10^3/uL 2.00 - 6.90 L [facility] Lymphocytes [#/volume] in Blood by Automated count 0.78 10^3/uL 0.60 - 3.40 [facility] Monocytes [#/volume] in Blood by Automated count 0.43 10^3/uL 0.00 - 0.90 [facility] Eosinophils [#/volume] in Blood by Automated count 0.06 10^3/uL 0.00 - 0.70 [facility] Basophils [#/volume] in Blood by Automated count 0.01 10^3/uL 0.00 - 0.20 [facility] #IG 0.00 10^3/uL 0.00 - 0.10 [facility] #NRBC 0.00 10^3/uL 0.00 - 0.00 [facility] MANUAL DIFF SEE BELOW [facility] Segmented neutrophils/100 leukocytes in Blood by Manual count 31 % 37 - 80 L [facility] BAND 1 % 0 - 5 [facility] %LYMPH 53 % 25 - 40 [facility] %MONO 14 % 3 - 8 [facility] %EOS 1 % 0 - 7 [facility] RBC MORPH SEE BELOW [facility] { SICKLE CELL (NORMAL: NONE SEEN ) Platelet adequacy [Presence] in Blood by Light microscopy DE CREASED NORMAL: NORMAL A [facility] COMMENT: ID Date Data Source [id number] 06/25/2020 10:03:00 AM EDT [facility] Name Value Range Interpretation Code Description Data Valentina rce(s) Supporting Document(s) Lipase [Enzymatic activity/volume] in Serum or Plasma 63 U/L 13 - 60 H [facility] ID Date Data Source [id number] 06/25/2020 10:03:00 AM EDT [facility] Name Value Range Interpretation Code Description Data Valentina rce(s) Supporting Document(s) CVE PANEL [facility] LIPID PANEL Cholesterol [Mass/volume] in Serum or Plasma 131 MG/DL 131 - 200 [facility] Deprecated Triglyceride [Mass/volume] in Serum or Plasma 138 MG/DL 3 5 - 160 [facility] HDL 49 MG/DL 29 - 86 [facility] Cholesterol in LDL [Mass/volume] in Serum or Plasma by Direc t assay 61 mg/dL 65 - 175 L [facility] Cholesterol.total/Cholesterol in HDL [Mass Ratio] in Serum o r Plasma 2.7 3.4 - 4.9 L [facility] LDL/HDL 1.24 1.00 - 3.55 [facility] CVE RISK CHOL/HDL LDL/HDLMEN: 1/2 AVERAGE 3.43 1.00 AVERAGE 4.97 3.55 2X AVERAGE 9.55 6.25 3X AVERAGE 23.99 7.99WOMEN: 1/2 AVERAGE 3.27 1.47 AVERAGE 4.44 3.22 2X AVERAGE 7.05 5.03 3X AVERAGE 11.04 6.14 ID Date Data Source [id number] 06/25/2020 10:03:00 AM EDT [facility] Name Value Range Interpretation Code Description Data Valentina rce(s) Supporting Document(s) COMPREHENSIVE METABOLIC PANEL [facility] COMPREHENSIVE METABOLIC PANEL Sodium [Moles/volume] in Serum or Plasma 137 mEq/L 134 - 153 [facility] Potassium [Moles/volume] in Serum or Plasma 3.7 mEq/L 3.6 - 5.0 [facility] Chloride [Moles/volume] in Serum or Plasma 103 mEq/L 98 - 107 [facility] Carbon dioxide, total [Moles/volume] in Serum or Plasma 26 MEQ/L 22 - 30 [facility] Glucose [Mass/volume] in Serum or Plasma 164 MG/DL 65 - 110 H [facility] BUN 7 MG/DL 7 - 21 [facility] Creatinine [Mass/volume] in Serum or Plasma 0.6 MG/DL 0.7 - 1.5 L [facility] BUN/CREAT 12 8 - 27 [facility] Protein [Mass/volume] in Serum or Plasma 7.8 G/DL 6.3 - 8.2 [facility] Albumin [Mass/volume] in Serum or Plasma 4.1 G/DL 3.9 - 5.0 [facility] Globulin [Mass/volume] in Serum by calculation 3.7 GM/DL 2.4 - 3.2 H [facility] A/G RATIO 1.1 0.8 - 2.0 [facility] Calcium [Mass/volume] in Serum or Plasma 8.8 MG/DL 8.4 - 10.2 [facility] Bilirubin.total [Mass/volume] in Serum or Plasma 0.9 MG/DL 0.2 - 1.3 [facility] Alkaline phosphatase [Enzymatic activity/volume] in Serum or Plasma 78 U/L 38 - 126 [facility] Aspartate aminotransferase [Enzymatic activity/volume] in Serum or Plasma 30 U/L 5 - 40 [facility] Alanine aminotransferase [Enzymatic activity/volume] in Seru m or Plasma 37 U/L 7 - 56 [facility] Anion gap 3 in Serum or Plasma 8.0 mmol/L 8.0 - 16.0 [facility] AGE 50 yrs [facility] NON-AA GFR >60 mL/min [facility] AFR AMER GFR >60 mL/min [facility] Male GFR In terprentation 20-49 yrs >60 mL/min Normal 50-59 yrs >56 mL/min Normal 60-69 yrs >49 mL/min Normal 70-79yrs >42 mL/min Normal 80 and above >35 mL/min Normal Female GFR Interpretation 20-39 yrs >60 mL/min Normal 40-49 yrs >58 mL/min Normal 50-59 yrs >51 mL/min Normal 60-69 yrs >45 mL/min Normal 70-79 yrs >39 mL/min Normal 80 and above >32 mL/min Normal ID Date Data Source [id number] 06/25/2020 10:03:00 AM EDT [facility] Name Value Range Interpretation Code Description Data Valentina rce(s) Supporting Document(s) Amylase [Enzymatic activity/volume] in Serum or Plasma 92 U/L 30 - 110 [facility] ID Date Data Source [id number] 06/25/2020 09:59:00 AM EDT [facility] Name Value Range Interpretation Code Description Data Valentina rce(s) Supporting Document(s) Hemoglobin A1c/Hemoglobin.total in Blood 8.2 % 4.4 - 6.1 H [facility] {A1]{HB] Procedure Social History Code Duration Value Status Description Data Source(s ) Alcohol intake 11/18/2020 12:00:00 AM EST Ex-drinker (finding) comp leted Ex- drinker (finding) Tobacco use and exposure 11/18/2020 12:00:00 AM EST Current user co mpleted Current user Cigarette pack-years 11/18/2020 12:00:00 AM EST UNK completed Cigarettes smoked current (pack per day) - Reported 11/18/19 12:00:00 AM EST UNK completed [facility] Smoking 11/18/2020 12:00:00 AM EST Former smoker completed Former smoker Alcohol intake 10/28/2020 12:00:00 AM EST Not Currently completed [facility] Cigarette pack-years 10/28/2020 12:00:00 AM EST UNK completed [facility] Cigarettes smoked current (pack per day) - Reported 10/28/20 12:00:00 AM EST UNK completed [facility] Smoking 10/28/2020 12:00:00 AM EST Former smoker completed Former smoker [facility] Alcohol intake 10/24/2020 12:00:00 AM EST Not Currently completed [facility] Cigarette pack-years 10/24/2020 12:00:00 AM EST UNK completed [facility] Cigarettes smoked current (pack per day) - Reported 10/24/20 12:00:00 AM EST UNK completed [facility] Smoking 10/24/2020 12:00:00 AM EST Former smoker completed Former smoker [facility] Vital Signs ID Date Data Source UNK Name Value Range Interpretation Code Description Data Source(s) Oxygen saturation in Arterial blood by Pulse oximetry 96 % 96 % [facility] ([facility]) Body temperature 97.7 [degF] 97.7 [degF] [facility] ([facility]) Heart rate 83 /min 83 /min [facility] ([facility]) Body surface area Derived from formula 2.46 m2 2.46 m2 [facility] ([facility]) Body mass index (BMI) [Ratio] 42.3 kg/m2 42.3 k g/m2 [facility] Body height 70 [in_i] 70 [in_i] [facility] ([facility]) 5'10" Body weight 133.869 kg 133.869 kg [facility] Body weight 295.12 [lb_av] 295.12 [lb_av] [facility] ([facility]) Oxygen saturation in Arterial blood by Pulse oximetry 96 % 96 % [facility] ([facility]) Respiratory rate 16 /min 16 /min [facility] ( [facility]) Body temperature 97.9 [degF] 97.9 [degF] [facility] ([facility]) Heart rate 101 /min 101 /min [facility] ([facility]) Diastolic blood pressure 82 mm[Hg] 82 mm[Hg] [facility] ([facility]) Systolic blood pressure 124 mm[Hg] 124 mm[Hg] [facility] ([facility]) Oxygen saturation in Arterial blood by Pulse oximetry 93 % 93 % [facility] Heart rate 87 /min 87 /min [facility] Diastolic blood pressure 70 mm[Hg] 70 mm[Hg] [facility] Systolic blood pressure 119 mm[Hg] 119 mm[Hg] [facility] Respiratory rate 20 /min 20 /min [facility] Body temperature 36.83 Zakia 36.83 Zakia [facility] Body mass index (BMI) [Ratio] 45.32 kg/m2 45.32 kg/m2 [facility] Body weight 135.172 kg 135.172 kg [facility] Body height 172.7 cm 172.7 cm [facility] Oxygen saturation in Arterial blood by Pulse oximetry 94 % 94 % [facility] Body mass index (BMI) [Ratio] 45.98 kg/m2 45.98 kg/m2 [facility] Body weight 137.168 kg 137.168 kg [facility] Body height 172.7 cm 172.7 cm [facility] Heart rate 100 /min 100 /min [facility] Diastolic blood pressure 73 mm[Hg] 73 mm[Hg] [facility] Systolic blood pressure 134 mm[Hg] 134 mm[Hg] [facility] Body surface area Derived from formula 2.51 m2 2.51 m2 [facility] ([facility]) Body weight 136.080 kg 136.080 kg [facility] ([facility] [place] body weight 172 [lb_av] 172 [lb_av] [facility] ([facility]) Body mass index (BMI) [Ratio] 41.8 kg/m2 41.8 k g/m2 [facility] ([facility]) Body weight 300.00 [lb_av] 300.00 [lb_av] [facility] ([facility]) Body height 71 [in_i] 71 [in_i] [facility] ([facility]) 5'11" Diastolic blood pressure 82 mm[Hg] 82 mm[Hg] [facility] ([facility]) Systolic blood pressure 150 mm[Hg] 150 mm[Hg] [facility] ([facility]) Body surface area Derived from formula 2.47 m2 2.47 m2 [facility] ([facility]) Body mass index (BMI) [Ratio] 42.8 kg/m2 42.8 k g/m2 [facility] ([facility]) Body height 70 [in_i] 70 [in_i] [facility] ([facility]) 5'10" Body weight 135.286 kg 135.286 kg [facility] ([facility]) Body weight 298.25 [lb_av] 298.25 [lb_av] [facility] ([facility]) Oxygen saturation in Arterial blood by Pulse oximetry 97 % 97 % [facility] ([facility]) Respiratory rate 16 /min 16 /min [facility] ( [facility]) Body temperature 98.0 [degF] 98.0 [degF] [facility] ([facility]) Heart rate 107 /min 107 /min [facility] ([facility]) Diastolic blood pressure 78 mm[Hg] 78 mm[Hg] [facility] ([facility]) Systolic blood pressure 118 mm[Hg] 118 mm[Hg] [facility] ([facility]) Body surface area Derived from formula 2.54 m2 2.54 m2 [facility] ([facility]) Body mass index (BMI) [Ratio] 45.3 kg/m2 45.3 k g/m2 [facility] ([facility]) Body height 70 [in_i] 70 [in_i] [facility] ([facility]) 5'10" Body weight 143.338 kg 143.338 kg [facility] ([facility]) Body weight 316.00 [lb_av] 316.00 [lb_av] [facility] ([facility]) Respiratory rate 16 /min 16 /min [facility] ( [facility]) Body temperature 98.2 [degF] 98.2 [degF] [facility] ([facility]) Heart rate 88 /min 88 /min [facility] ([facility]) Diastolic blood pressure 78 mm[Hg] 78 mm[Hg] [facility] ([facility]) Systolic blood pressure 148 mm[Hg] 148 mm[Hg] [facility] ([facility]) Body surface area Derived from formula 2.54 m2 2.54 m2 [facility] ([facility]) Body mass index (BMI) [Ratio] 45.4 kg/m2 45.4 k g/m2 [facility] ([facility]) Body height 70 [in_i] 70 [in_i] [facility] ([facility]) 5'10" Body weight 143.508 kg 143.508 kg [facility] ([facility]) Body weight 316.38 [lb_av] 316.38 [lb_av] [facility] ([facility]) Oxygen saturation in Arterial blood by Pulse oximetry 95 % 95 % [facility] ([facility]) Respiratory rate 16 /min 16 /min [facility] ( [facility]) Body temperature 98.0 [degF] 98.0 [degF] [facility] ([facility]) Heart rate 97 /min 97 /min [facility] ([facility]) Diastolic blood pressure 86 mm[Hg] 86 mm[Hg] [facility] ([facility]) Systolic blood pressure 138 mm[Hg] 138 mm[Hg] [facility] ([facility]) Body surface area Derived from formula 2.53 m2 2.53 m2 [facility] ([facility]) Body mass index (BMI) [Ratio] 45.0 kg/m2 45.0 k g/m2 [facility] ([facility]) Body height 70 [in_i] 70 [in_i] [facility] ([facility]) 5'10" Body weight 142.430 kg 142.430 kg [facility] ([facility]) Body weight 314.00 [lb_av] 314.00 [lb_av] [facility] ([facility]) Body temperature 97.6 [degF] 97.6 [degF] [facility] ([facility]) Heart rate 97 /min 97 /min [facility] ([facility]) Diastolic blood pressure 62 mm[Hg] 62 mm[Hg] [facility] ([facility]) Systolic blood pressure 120 mm[Hg] 120 mm[Hg] [facility] ([facility]) Body surface area 2.53 m2 2.53 m2 [facility] ([facility]) Body surface area 2.56 m2 2.56 m2 [facility] ([facility]) Body mass index (BMI) [Ratio] 46.2 kg/m2 46.2 k g/m2 [facility] ([facility]) Body height 70 [in_i] 70 [in_i] [facility] ([facility]) 5'10" Body weight 146.059 kg 146.059 kg [facility] ([facility]) Body weight 322.00 [lb_av] 322.00 [lb_av] [facility] ([facility]) Oxygen saturation in Arterial blood by Pulse oximetry 96 % 96 % [facility] ([facility]) Respiratory rate 18 /min 18 /min [facility] ( [facility]) Body temperature 97.8 [degF] 97.8 [degF] [facility] ([facility]) Heart rate 97 /min 97 /min [facility] ([facility]) Diastolic blood pressure 62 mm[Hg] 62 mm[Hg] [facility] ([facility]) Systolic blood pressure 120 mm[Hg] 120 mm[Hg] [facility] Body surface area 2.55 m2 2.55 m2 [facility] ([facility]) Body mass index (BMI) [Ratio] 45.8 kg/m2 45.8 k g/m2 [facility] ([facility]) Body height 70 [in_i] 70 [in_i] [facility] ([facility]) 5'10" Body weight 144.812 kg 144.812 kg [facility] ([facility]) Body weight 319.25 [lb_av] 319.25 [lb_av] [facility] ([facility]) Oxygen saturation in Arterial blood by Pulse oximetry 97 % 97 % [facility] ([facility]) Respiratory rate 16 /min 16 /min [facility] ( [facility]) Body temperature 97.9 [degF] 97.9 [degF] [facility] ([facility]) Heart rate 88 /min 88 /min [facility] ([facility]) Diastolic blood pressure 84 mm[Hg] 84 mm[Hg] [facility] ([facility]) Systolic blood pressure 138 mm[Hg] 138 mm[Hg] [facility] ID Date Data Source [id number] 11/19/2020 12:22:28 PM [facility] Name Value Range Interpretation Code Description Data Source(s) WEIGHT RECORDED 294 lb 294 lb [place] [facility] Body height Measured 70 in 70 in [facility] Patient Treatment Plan of Care Planned Activity Planned Date Details Description Data Source (s) Morphine Sulfate 20 MG/ML Oral Solution 11/16/2020 12:00:00 AM [facility] Amylases 03054 UNT / Endopeptidases 3800 0 UNT / Lipase 53224 UNT Delayed Release Oral Capsule [Creon] 11/06/2020 12:00:00 AM [facility]
--- NOTE | 2021-01-03 17:35 | REP ---
INDICATION: ? constipation. COMPARISON: 06/12/2015. TECHNIQUE: Two AP views abdomen and pelvis. FINDINGS: The bowel gas pattern is normal. No dilated bowel loops are seen. There is no bowel obstruction. A common bile duct stent is seen in the right upper quadrant as well as adjacent metallic clips in the region of the gallbladder fossa. There are mild degenerative changes of the spine and hips. IMPRESSION: No acute findings. <Electronically signed by Isaac Ferro > 01/03/21 [id number]
--- OUTSIDE RECORDS SUMMARY | 2021-01-03 17:38 | CCD ---
Author Author [facility] Organization [facility] Address Unknown Phone Unavailable Care Team Providers Care Optimization Specialist Name Role Phone Clifford PHILIPPE MD Unavailable [...] Clifford PHILIPPE MD Unavailable Unavailable Hospital Lab, [facility] Unavailable Unavailable Basilio HOBBS MD Unavailable Unavailable [...] TIFFANIE MD Unavailable Unavailable BUMBANAC, A STAR HAND STONER Unavailable Unavailable BUMBANAC, A STAR HAND STONER Unavailable Unavailable BUMBANAC, A STAR HAND STONER Unavailable Unavailable BUMBANAC, A STAR HAND STONER Unavailable Unavailable BUMBANAC, A STAR HAND STONER Unavailable Unavailable BUMBANAC, A STAR HAND STONER Unavailable Unavailable BUMBANAC, A STAR HAND STONER Unavailable Unavailable BUMBANAC, A STAR HAND STONER Unavailable Unavailable BUMBANAC, A STAR HAND STONER Unavailable Unavailable BUMBANAC, A STAR HAND STONER Unavailable Unavailable BUMBANAC, A STAR HAND STONER Unavailable Unavailable BUMBANAC, A STAR HAND STONER Unavailable Unavailable BUMBANAC, A STAR HAND STONER Unavailable Unavailable BUMBANAC, A STAR HAND STONER Unavailable Unavailable BUMBANAC, A STAR HAND STONER Unavailable Unavailable BUMBANAC, A STAR HAND STONER Unavailable Unavailable BUMBANAC, A STAR HAND STONER Unavailable Unavailable BUMBANAC, A STAR HAND STONER Unavailable Unavailable BUMBANAC, A STAR HAND STONER Unavailable Unavailable BUMBANAC, A STAR HAND STONER Unavailable Unavailable BUMBANAC, A STAR HAND STONER Unavailable Unavailable BUMBANAC, A STAR HAND STONER Unavailable Unavailable BUMBANAC, A STAR HAND STONER Unavailable Unavailable BUMBANAC, A STAR HAND STONER Unavailable Unavailable BUMBANAC, A STAR HAND STONER Unavailable Unavailable BUMBANAC, A STAR HAND STONER Unavailable Unavailable BUMBANAC, A STAR HAND STONER Unavailable Unavailable BUMBANAC, A STAR HAND STONER Unavailable Unavailable ARNOLD, P TIFFANIE MD Unavailable Unavailable ARNOLD, P TIFFANIE MD Unavailable Unavailable ARNOLD, P TIFFANIE MD Unavailable Unavailable ARNOLD, P TIFFANIE MD Unavailable Unavailable ARNOLD, P TIFFANIE MD Unavailable Unavailable ARNOLD, P TIFFAINE MD Unavailable Unavailable ARNOLD, P TIFFANIE MD [...] Unavailable Unavailable Clifford PHILIPPE MD Unavailable Unavailable ZULICKCliffodr MD Unavailable Unavailable Clifford PHILIPPE MD Unavailable [...] Haydee, Mashashanon SALCEDO Unavailable Unavailable Haydee, Masmanjula SALCEDO Unavailable Unavailable Haydee, Mashashanon SALCEDO Unavailable Unavailable Haydee, Mashashanon SALCEDO Unavailable Unavailable Haydee, Mashashanon MD Unavailable Unavailable Haydee, Mashashanon SALCEDO Unavailable Unavailable Hadyee, Mashashanon SALCEDO Unavailable Unavailable Haydee, Mashashanon SALCEDO [...] Unavailable Unavailable Haydee, Sandra SALCEDO Unavailable Unavailable Hadyee, Sandra SALCEDO Unavailable Unavailable Haydee, Sandra SALCEDO [...] M Lisa PA-C Unavailable Unavailable Verdugo, M Lsia PA-C Unavailable Unavailable Verdugo, M Lisa PA-C [...] Unavailable Unavailable ROBBY CLARK MD Unavailable Unavailable ROBYB CLARK MD Unavailable Unavailable ROBBY CLARK MD [...] is protected by Article 27-F of the [facility] Public Health law. If you continue you may have access to information: Regarding HIV / AIDS; Provided by facilities licensed or operated by the [facility] Office of Mental Health; or Provided by the [facility] Office for People With Developmental Disabilities. If such information is present, then the following [facility] mandated warning applies: This information has been [...] law may result in a fine or usp sentence or both. A general authorization for the release of medical or other information is NOT sufficient authorization for further disc losure. Allergies and Adverse Reactions Type Description Substance Reaction Status Data Source(s ) Drug allergy No Known Drug Allergies No Known Drug Allergies [facility] No Known Drug Allergies No Known Drug Allergies [facility] No Known Food Allergies No Known Food Allergies [facility] ENVIRONMENTAL BEES BEES [facility] Drug Class NO KNOWN ALLERGIES NO KNOWN ALLERGIES [facility] Family History Family Member Name Family Member Gender Family Member Status Date o f Status Description Data Source(s) Unknown Female Problem [facility] ([facility]) Unknown Unknown Problem [facility] ([facility]) Encounters Encounter Providers Location Date Indications Data Source(s ) Outpatient Attender: Lisa GORDONCConsultant: ROBBY KINGSTON MD 12/12/2020 08:16:00 AM [facility] - 12/12/2020 08:16:00 AM [facility] Outpatient Attender: Sandra UnderwoodA-MLTCACTR 12/11/2020 03:47:06 PM [facility] Outpatient Attender: Sandra Hubbard MD 2020 12:00:00 AM [facility] - 12/12/2020 08:50:02 AM [facility] Outpatient Attender: SANDY Allred-MLTCACTR 12/05/2020 12 :24:33 PM [facility] Outpatient Attender: Lisa GORDONCConsultant: ROBBY KINGSTON MD 12/05/2020 10:09:00 AM [facility] - 12/05/2020 10:09:00 AM [facility] Outpatient Attender: Lisa Verdugo PA-C Family Practice 11/09 09:20:00 AM EST [facility] Outpatient Attender: RENNY STARK NPConsultant: ROBBY CLAROS MD 12/02/2020 05:07:00 PM [facility] - 12/02/2020 05:07:00 PM [facility] Outpatient Attender: Constance Allred-MLTCACTR 11/26/19 12:00:00 AM [facility] - 11/26/2020 03:06:22 PM EST Malignant neoplasm of pancreas, unspecified [facility] Malignant neoplasm of pancreas, unspecif ied Outpatient Attender: Sandra Hubbard MDReferrer: TIFFANIE GEORGES MD 07A-MLTCACTR 11/18/2020 12:00:00 AM EST - 11/18/2020 09:52:16 AM EST Malignant neoplasm of pancreas, unspecified [facility] Malignant neoplasm of pancreas, unspecif ied Outpatient Admitter: Sandra Hubbard MDReferrer: Sandra Hubbard MD 11/15/2020 12:00:00 AM EST Other specified diseases of pancreas [facility] Other specified diseases of pancreas Outpatient Attender: Lisa GORDONCConsultant: ROBBY KINGSTON MD 11/11/2020 08:22:00 AM EST - 11/11/2020 08:22:[address] [facility] Outpatient Referrer: TED COOMBS 10/28/2020 02:44:00 PM EST Other specified diseases of pancreas [facility] Other specified diseases of pancreas Outpatient Attender: Ted Montanoer: Ted LAY-M OB.PAT 10/24/2020 07:43:01 AM EST - 10/24/2020 08:59:32 AM EST [facility] Outpatient Referrer: Ted LAY-MOB.PAT 10/24/2020 12:00:00 AM EST - 10/24/2020 11:08:32 AM EST [facility] Outpatient Attender: Ted Coombs DOAdmitter: Ted Montanoer: Ted Coombs DO [id number].EU 10/22/2020 03:15:59 PM EST - 10/28/2020 10:08:00 AM EST [facility] Patient discharged. Outpatient Attender: JOSÉ Su/Viviana/Delvis/Abdiel mora 10/16/2020 09:15:00 AM EST [facility] ([facility] Outpatient Admitter: Karon Ellingtonerrer: Karon Ventura 10/09/2020 12:00:00 AM EST Other specified diseases of pancreas [facility] Other specified diseases of pancreas Outpatient Attender: Lisa JOSEPH-CConsultant: ROBBY KINGSTON MD 10/08/2020 09:07:00 AM EST - 10/08/2020 09:07:00 AM [facility] Outpatient Attender: [facility] 09/29/2020 10:1 7:00 AM [facility] Emergency Attender: TAIFERNANDA SCHAEFER MDConsultant: ROBBY CLAROS MD 09/29/2020 10:10:00 AM EST - 09/29/2020 02:17:00 PM [facility] Patient discharged. Outpatient Attender: TIFFANIE FABY MDConsultant: ROBBY PLASENCIA MD 08/27/2020 08:24:00 AM EDT - 08/27/2020 09:24:[address] [facility] Office Visit Attender: AARON PHILIPPE MD Family Practice 2019 09:45:00 AM EDT [facility] Outpatient Attender: AARON PHILIPPE MDConsultant: ROBBY Gutierrez MD 08/01/2020 08:44:00 AM EDT - 08/01/2020 08:44:[address] [facility] Outpatient Attender: Lisa GORDONCConsultant: ROBBY KINGSTON MD 07/25/2020 08:26:00 AM EDT - 07/25/2020 08:26:[address] [facility] Outpatient Attender: AARON PHILIPPE MDConsultant: ROBBY Gutierrez MD 07/17/2020 08:48:00 AM EDT - 07/17/2020 08:48:[address] [facility] Outpatient Attender: Shelli Mcmullen MDConsultant: ROBBY CLARK MD 07/17/2020 06:47:00 AM EDT - 07/17/2020 06:47:[address] [facility] Outpatient Attender: Lisa GORDONCConsultant: ROBBY KINGSTON MD 06/25/2020 07:05:00 AM EDT - 06/25/2020 07:05:[address] [facility] Outpatient Attender: ROBBY CLARK MD 03/21/2018 09:0 4:00 AM EDT R30.0,E11.9,E11.65 [facility] R30.0,E11.9,E11.65 Emergency Attender: José Fernandes MD 05/10 04:15:00 PM EDT - 06/07/2015 05:05:00 PM EDT BACK /FLANK PAIN,VOMITING [facility] BACK /FLANK PAIN,VOMITING Immunizations Vaccine Date Status Description Data Source(s) Flu Vaccine Historical 08/08/2020 12:00:00 AM EDT completed Flu Vaccine Historical 08/08/2020 [facility] [place] in 2011. IIV4 07/25/2020 09:50:00 AM EDT completed [facility] ([facility]) Medications Medication Brand Name Start Date Product [...] 12/09/2020 12:00 :00 AM EST active [facility] ([facility]) 0.5 mL 31 gauge x 5/16" 12/08/2020 12:00:00 AM EST syringe 30 USE WITH BASAGLAR DAILY USE WITH BASAGLAR DAILY SOLD: 12/10/2020 [facility] 33 gauge 12/06/2020 12:00:00 AM EST misc 100 USE FOUR TIMES A DAY USE FOUR TIMES A DAY SOLD: 12/07/2020 [facility] Ondansetron 8 MG Disintegrating Oral Tablet Ondansetron 12/03/2020 12:00:00 AM EST ORAL active [facility] ([facility]) Ondansetron 4 MG Oral Tablet [Zofran] Zofran 12/03/2020 12:00:00 AM EST ORAL completed [facility] ([facility]) 8 mg 12/03/2020 12:00:00 AM EST tablet,disintegrating [...] 11/18/2020 12:00:00 AM EST act haydee MED[facility] ([facility]) Morphine Sulfate 20 MG/ML Oral Solution Morphine Sulfate (Concentrate) 100 MG/5ML Oral Solution Morphine Sulfate (Concentrate) 100 MG/5ML Oral Solutio n 11/16/2020 12:00:00 AM EST active [facility] 100 mg/5 mL (20 mg/mL) 11/16/2020 12:00:00 [...] MAXIMUM DAILY DOSE = 4 SOLD: 11/18/2020 [facility] 1 mg 11/15/2020 12:00:00 AM EST tablet 5 TAKE ONE TABLET BY MOUTH 1 HOUR PRIOR TO PROCEDURE, MAY TAKE A SECOND DOSE NEEDED FOR SEVERE ANXIETY MAXIMUM DAILY DOSE = 2 TABLETS TAKE ONE TABLET BY MOUTH 1 HOUR PRIOR TO PROCEDURE, MAY TAKE A SECOND DOSE NEEDED FOR SEVERE ANXIETY MAXIMUM DAILY DOSE = 2 TABLETS SOLD: 11/18/2020 [facility] Morphine Sulfate 20 MG/ML Oral Solution 100 [...] MAXIMUM DAILY DOSE = 4ML SOLD: 11/07/2020 [facility] Amylases 61338 UNT / Endopeptidases 3800 0 UNT / Lipase 01318 UNT Delayed Release Oral Capsule [Creon] Creon 85001 UNIT Oral Capsule Delayed Release Particles Creon 90436 UNIT Oral Capsule Delayed Release Particles 11/06/2020 12:00:00 AM EST active TAKE ONE CAPSULE BY MOUTH THREE TIMES A DAY WITH MEALS [facility] 12,000-38,000 -60,000 unit 11/06/2020 12:00:00 A M EST capsule,delayed release(DR/EC) 90 TAKE ONE CAPSULE BY MOUTH THREE TIMES A DAY WITH MEALS TAKE ONE CAPSULE BY MOUTH THREE TIMES A DAY WITH MEALS SOLD: 11/07/2020 [facility] Onetouch Delica Lancets Extra Fine 33G 10/15/2020 12:00:00 AM NERY Givens completed [facility] ([facility]) BLOOD SUGAR DIAGNOSTIC 10/09/2020 12:00:00 AM EST strip 150 TEST TWO TIMES A DAY TEST TWO TIMES A DAY SOLD: 10/10/2020 [facility] 31 gauge x 5/16" 10/07/2020 12:00:00 AM EST needle 30 USE WITH BASAGLAR DAILY USE WITH BASAGLAR DAILY SOLD: 10/07/2020 [facility] 100 unit/mL (3 mL) 10/07/2020 12:00:00 AM EST insulin pen 15 INJECT 10 UNITS SUBCUTANEOUSLY ONCE DAILY INJECT 10 UNITS SUBCUTANEOUSLY ONCE DAILY SOLD: 10/07/2020 [facility] Basaglar Kwikpen Basaglar Kwikpen 10/07/2020 12:00:00 AM EST SUBCUTANEOUS active MED[facility] ([facility]) Insulin Syringes/0.5ML/31GX 5/16" 10/07/2020 12:00:00 AM EST active [facility] ([facility]) 31 gauge x 5/16" 10/07/2020 12:00:00 AM [...] BY MOUTH EVERY 8 HOURS SOLD: 10/07/2020 [facility] 100 mg 10/06/2020 12:00:00 AM EST [...] 07/25/2020 12:00:00 AM EDT ORAL active [facility] ([facility]) 875-125 mg 07/17/2020 12:00:00 AM EDT tablet 14 TAKE ONE TABLET BY MOUTH TWICE A DAY TAKE ONE TABLET BY MOUTH TWICE A DAY SOLD: 07/24/2020 [facility] cefTRIAXone(Rocephin) Vial 1 G 07/17/2020 12:00:00 AM EDT completed [facility] ([facility]) Medication administered onsite Amoxicillin 875 MG / Clavulanate 125 MG Oral Tablet Am oxicillin/Clavulanate Potassium 07/17/2020 12:00:00 AM EDT ORAL completed [facility] ([facility]) 875-125 mg 07/17/2020 12:00:00 AM EDT tablet [...] 03/05/2020 12:00:00 AM EDT act haydee [facility] ([facility]) 10 mg 03/04/2020 12:00:00 AM EDT tablet [...] 12:00:00 A M EST ORAL active [facility] ([facility]) alogliptin 25 MG Oral Tablet Alogliptin Benzoate 01/09/2020 12:00:00 AM EST ORAL active [facility] ([facility]) 10 mg 01/02/2020 12:00:00 AM EST tablet [...] 11/28/2019 12:00:00 AM EST ORAL active [facility] ([facility]) 50 mg 10/26/2019 12:00:00 AM EST tablet [...] type / Coverage type Policy ID Covered republican ID Covered republican's relationship to gonzalez Policy Gonzalez Plan Information [employer] COMMUNITY PLAN MCDO [id number] SP [id number] [facility] COMMUNTY PLAN [id number] UN[employer] COMMUNITY PLAN XIX [id number] 18 [id number] UHC I [id number] Self [id number] [facility] MEDICAID [id number] Radha [id number] INSURANCE COVID-19 COVID Radha C OVID [employer] [facility] COMMUNITY PLAN [id number] 18 [id number] [facility] MEDICAID [id number] INSURANCE COVID-19 [id number] [employer](MCAID) O [id number] S [id number] [employer] COMMUNITY PLAN MCDO [id number] SP [id number] [facility] Communty Plan Medicaid [id number] Self [id number] [facility] Communty Plan Medicaid [id number] Self 10 [id number] MEDICAID -RECURRING [id number] [facility] Communty Plan Medicaid [id number] Self 10 [id number] [facility] Communty Plan Medicaid [id number] Self 10 [id number] [facility] Communty Plan Medicaid [id number] Self 10 [id number] [facility] Communty Plan Medicaid [id number] Self [id number] [employer] COMMUNITY PLAN [id number] 18 [id number] UN[employer] COMMUNITY PLAN MCDO [id number] SP [id number] EXCELLUS I [id number] Self [id number] UNHC COMMUNITY PLAN MCDHMO [id number] SP [id number] [employer] Community Plan Medicaid [id number] Self [id number] [employer] Community Plan Medicaid [id number] Self [id number] [employer] Community Plan Medicaid [id number] Self [id number] [employer] Community Plan Medicaid [id number] Self [id number] UNHC AMERICHOICE XIX -HMO [id number] 18 [id number] [employer] Community Plan Medicaid [id number] Self [id number] [employer] Community Plan Medicaid Self Unitedhealth[employer] Medicaid Medicaid Self UNHC AMERICHOICE HMO [id number] 18 [id number] HMO BLUE [id number] SP [id number] MEDICAID - CLINIC [id number] BLUE CROSS BLUE SHIELD-CLINIC [id number] 18 [id number] BLUE CROSS BLUE SHIELD-O/P [id number] 18 [id number] BLUE CROSS BLUE SHIELD-O/P [id number] 18 [id number] MEDICAID-O/P [id number] 18 [id number] MEDICAID -O/P EMERGENCY ROOM [id number] 18 [id number] Problems, Conditions, and Diagnoses Code Display Name Description Problem Type Effective Dates Data Source(s) 740367631 Pure hypercholesterolemia Pure hypercholesterolemia Pr oblem 07/17/2020 12:00:00 AM EDT [facility] ([facility]) 04282146 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 Problem 020 12:00:00 AM EDT [facility] ([facility]) E119 Type 2 diabetes mellitus without complic ations Type 2 diabetes mellitus without complications Diagnosis 12/05/2020 10:09:00 AM [facility] C259 Malignant neoplasm of pancreas, unspecif ied Malignant neoplasm of pancreas, unspecified Diagnosis 12/05/2020 10:09:00 AM [facility] U071 COVID-19 COVID-19 Diagnosis 12/05/2020 10:09:00 AM [facility] Z13.79 Encounter for other screening for geneti c and chromosomal anomalies Encounter for other screening for genetic and chromosomal anomalies Diagnosis 11/26/2020 08:01:26 AM [facility] Z71.83 Encounter for nonprocreative genetic cou nseling Encounter for nonprocreative genetic counseling Diagnosis 11/26/2020 08:01:26 AM [facility] C25.9 Malignant neoplasm of pancreas, unspecif ied Malignant neoplasm of pancreas, unspecified Diagnosis 11/18/2020 01:41:20 PM [facility] K74.69 Other cirrhosis of liver Other cirrhosis of liver Diag nosis 11/18/2020 08:57:21 AM [facility] K86.89 Other specified diseases of pancreas Oth er specified diseases of pancreas Diagnosis 11/15/2020 12:10:00 PM [facility] C8590 Non-Hodgkin lymphoma, unspecified, unspe cified site Non-Hodgkin lymphoma, unspecified, unspecified site Diagnosis 11/11/2020 08:22:00 AM [facility] S52444 Hemochromatosis, unspecified Hemochromatosis, unspecif ied Diagnosis 11/11/2020 08:22:00 AM [facility] K86.89 Other specified diseases of pancreas Oth er specified diseases of pancreas Diagnosis 10/28/2020 07:02:00 AM [facility] U07.1 COVID-19 COVID-19 Diagnosis 10/24/2020 11:08:28 AM [facility] K8590 Acute pancreatitis without necrosis or i nfection, unspecified Acute pancreatitis without necrosis or infection, unspecified Diagnosis 10/08/2020 09:07:00 AM [facility] Z7984 manager continuous improvement (current) use of oral hypoglyc emic drugs USP (current) use of oral hypoglycemic drugs Diagnosis 09/29/2020 10:10:00 AM [facility] L84587 Personal history of nicotine dependence Personal history of nicotine dependence Diagnosis 09/29/2020 10:10:00 AM [facility] I10 Essential (primary) hypertension Essential (primary) h ypertension Diagnosis 09/29/2020 10:10:00 AM [facility] E785 Hyperlipidemia, unspecified Hyperlipidemia, unspecifie d Diagnosis 09/29/2020 10:10:00 AM [facility] K831 Obstruction of bile duct Obstruction of bile duct Diag nosis 09/29/2020 10:10:00 AM [facility] N3000 Acute cystitis without hematuria Acute cystitis without hematuria Diagnosis 09/29/2020 10:10:00 AM [facility] B179 Acute viral hepatitis, unspecified Acute viral h epatitis, unspecified Diagnosis 09/29/2020 10:10:00 AM [facility] K8510 Biliary acute pancreatitis without necro sis or infection Biliary acute pancreatitis without necrosis or infection Diagnosis 09/29/2020 10:10: 00 AM [facility] R1084 Generalized abdominal pain Generalized abdominal pain Diagnosis 09/29/2020 10:10:00 AM [facility] I43 Cardiomyopathy in diseases classified el sewhere Cardiomyopathy in diseases classified elsewhere Diagnosis [facility] Thrombocytopenia, unspecified Thrombocytopenia, unspec ified Diagnosis [facility]/27[facility]2020 [id number] Decreased white blood cell count, unspec ified Decreased white blood cell count, unspecified Diagnosis 08/27/2020 08:24:00 AM [facility] R32213 Encounter for surgical after care following surgery on the skin and subcutaneous tissue Encounter for surgical aftercare followi ng surgery on the skin and subcutaneous tissue Diagnosis 08/01/2020 08:44:00 AM [facility] Z23 Encounter for immunization Encounter for immunization Diagnosis 07/25/2020 08:26:00 AM [facility] [id number] Cutaneous abscess of right axilla Cutaneous absc ess of right axilla Diagnosis 07/25/2020 08:26:00 AM [facility] J87299 Cutaneous abscess of chest wall Cutaneous absces s of chest wall Diagnosis 07/17/2020 08:48:00 AM [facility] K7689 Other specified diseases of liver Other specifie d diseases of liver Diagnosis 06/25/2020 07:05:00 AM [facility] Surgeries/Procedures Procedure Description Date Indications Data Source(s) GLUC BLD GLUC MNTR DEV CLEARED FDA SPEC HOME USE POCT GLUCOSE Routine 10/28/2020 7:29 AM EST 10/28/2020 12:29:00 PM EST [facility] Endo W/Eus & Fna (Stomach) 10/28/2020 12:00:00 AM EST [facility] ([facility]) ECG ROUTINE ECG W/LEAST 12 LDS TRCG ONLY W/O I&R ECG 12-LEAD Routine 10/24/2020 8:50 AM EST Other specified diseases of pancreas 10/24/2020 01:50:11 PM EST Other specified diseases of pancreas [facility] Other specified diseases of pancreas HEMOGLOBIN GLYCOSYLATED A1C HEMOGLOBIN A1C Routine 10/24/2020 8:45 AM EST Other specified diseases of pancreas 10/24/2020 01:45:00 PM EST Other specified diseases of pancreas [facility] Other specified diseases of pancreas BASIC METABOLIC PANEL CALCIUM TOTAL BASIC METABOLIC PANEL Routi ne 10/24/2020 8:45 AM EST Other specified diseases of pancreas 10/24/2020 01:45:00 PM EST Other specified diseases of pancreas [facility] Other specified diseases of pancreas I & D Abscess Simple 07/17/2020 12:00:00 AM EDT [facility] ([facility]) Results ID Date Data Source [id number] 12/11/2020 03:48:42 PM EST [facility] Name Value Range Interpretation Code Description Data Valentina rce(s) Supporting Document(s) Progress Note [facility] GJYSXm1fVoPPFbCf24/VNVjaXSKzo4OzTQrmVBa5FLocXAQkR7CvTTV6oC7hNEP1POoNIgAfCqIoRjRc lbm [file] ICAgICAgICAgICAgICAgICAgICAgICAgICAgICAgIC AgICAgICAgICAgICAgICAgICAgICAgICAgICAgICAgICAgICAgICAgICAgICAgICAgICAgICAgICAgIC AgICAgDQogICAgICAgICAgICAgICAgICAgICAgICAgICAgICAgICAgICAgICAgICAgICAgICAgICAgIC AgICAgICAgICAgICAgICAgICAgICAgICAgICAgICAg ICAgICAgICAgICAgICAgDQogICAgICAgICAgICAgICAgICAgICAgICAgICAgICAgICAgICAgICAgICAg ICAgICAgICAgICAgICAgICAgICAgICAgICAgICAgICAgICAgICAgICAgICAgICAgICAgICAgICAgDQog ICAgICAgICAgICAgICAgICAgICAgICAgICAgICAgIC AgICAgICAgICAgICAgICAgICAgICAgICAgICAgICAgICAgICAgICAgICAgICAgICAgICAgICAgICAgIC AgICAgICAgDQogICAgICAgICAgICAgICAgICAgICAgICAgICAgICAgICAgICAgICAgICAgICAgICAgIC AgICAgICAgICAgICAgICAgICAgICAgICAgICAgICAg ICAgICAgICAgICAgICAgICAgDQogICAgICAgICAgICAgICAgICAgICAgICAgICAgICAgICAgICAgICAg ICAgICAgICAgICAgICAgICAgICAgICAgICAgICAgICAgICAgICAgICAgICAgICAgICAgICAgICAgICAg DQogICAgICAgICAgICAgICAgICAgICAgICAgICAgIC AgICAgICAgICAgICAgICAgICAgICAgICAgICAgICAgICAgICAgICAgICAgICAgICAgICAgICAgICAgIC AgICAgICAgICAgDQogICAgICAgICAgICAgICAgICAgICAgICAgICAgICAgICAgICAgICAgICAgICAgIC AgICAgICAgICAgICAgICAgICAgICAgICAgICAgICAg ICAgICAgICAgICAgICAgICAgICAgDQogICAgICAgICAgICAgICAgICAgICAgICAgICAgICAgICAgICAg ICAgICAgICAgICAgICAgICAgICAgICAgICAgICAgICAgICAgICAgICAgICAgICAgICAgICAgICAgICAg ICAgDQogICAgICAgICAgICAgICAgICAgICAgICAgIC AgICAgICAgICAgICAgICAgICAgICAgICAgICAgICAgICAgICAgICAgICAgICAgICAgICAgICAgICAgIC PnPBBjEZAoEYArYEGuKDu6S7jcDDWhDCNxDH3vOXe2Db3+SKvWDhHlQJV4faPrtU6JXS0dv6BcABviCR Xio2WgBJx2RC9UKSTrWVqxLP4XWBricn7DVPWsGISz fOMDq3udWlXrSVP8AERkQqvsAZ3QUIWvU1zjzzAaTFJwYMJGBPrxDRPPAXkwWCAAPX0SZcEhY1PtgN23 IDMNCj4+KGxltuEjAbiTIcHwECLss5ChDLe9QJ5DEWLlCuiem8KyIoLfLNLCENqlWI6SZUL3NTU1FGPp Yq4UUDFhN891xzDnAG1QJb9TUnPbXK7err7ZNpRwAO SgMxqQDkl2AMucZM0NpHOnSLkDlx7suhPiclIOt9ExrzXczCMOZNKsYGRbIGTaoNYnNZ9YUAU4MUMqRl 6uDIIwLWAeXoPqNGYAGQ8KZLYtJZQvjFSzLGSmSFBHTW3VFRvsDMH2KPHkrwXluSRrNDkyAG6VDAFbxw QgMjMgMCBSDQo+Xa3JBP0du5QqUBubHDFgQN9evc9S VIoZQvDcT6X8yLHuN9C5YHoaIi1IZOVmBWXqJrYuQSPLOIrdAC2SQS1nerJ8MA6AvBWuUEPrKZBhuJNq TTm1P16mxHGtSBkvFW4WBLW+Rigoberto+Bo0DPUTmPUArERNyVtSuHKMXYzGrJ0VcW5USr4QeB1HmGH91lVoy knZbMWkqWK8CCP7fCJCpDWKTMX9RtMXznX2vrpJbYh OuHHTGTlGfZ19nkMRaVIBlCKUdHJDnPv7WSVIjL1StktXyrCxarxIiGSPcDRWFBR2MVCgbzhQujMJxlU cpPW77uPchNJ7WSy5BMvCwWB0zcu1QgDGaFq3ZDWPiQw6XCXPiOMDbCKBzHAW7VOFlBsNgXHbmRJUfFA UkIDM3XGJfADCrHG3RNcRlMTObQmB6EFqvJHLnMFPz qc1VVVGfSCUfGSIwLEYkDSPiTKZuNZlkEBSsXRCbWQJ0HRXhTLLoUE7AAqXxWIGuDSCvMGdqFNLcRXUg cq9OQXCnPLJqKBUfUwYkGLHbVXQjZZfhZDHkESD9DhxiRYTjOVYwUC9EAiShPZDeANr0GTHhBYAxLGGl jb8ATEExTBUpJODtQUYkQKGnSSHkZOtcTBLoDWG5Lu RyHEMjBHMzRX8QPmHxBCJuWHy6BRJfGOLmEEKmyy7EQRCcQTWuXSc5ZORpTHHhEXYkELtzJUUsRGAcXR LjNMXlNVXiRF4PQbTtXJErRHTtJcHgUMWoWMSxym4OHVLxXKDuMFSxNlEqFFRuYWEkGQpwVKUcHJQbIU GyMQVuTMMgFJ8TPzEdGKXqJyI7TnGqOQWoAXWfvx1C BABbEQXuApJ6WsOeGFJcNFQbRDpaRAOxTSQgKbjzSTHqWWRgXD6EBnOoVPMqZnM0UvSpOCJiKPXdmm3E RDJmJRSiEkW4IqMjVIRcROUmBGkjSRYuCTX1BLp9VISfKZIwYQ6KReSiZYRaTkO5MygdHXHoLQEarl1R ONGfJABpTAP2FKWkNZIfPWLcCDvjOBXgNQQ2MjS0LS YwNZRjMI2OFbEhABaeJVPFNmm5IKenM2u8HAWoIx7OV8Efb7IfXpWjXKPEAKmySC4hhjAoITLvHy7TD7 xULwa1NqC1THTcZIRfBSJfECFdEBYxNlXiSTF1TEJ3JHF9FN7dLEToZNHvZOA5YII4NOJqQQJsNBHyH9 H6GQtwEWY1QhzxVqGlAW0IZh3UJoL0VJP7fGWbFg6WAjO4MDhMKlZlXY4QUZv= ID Date Data Source [id number] 12/05/2020 12:24:33 PM [facility] Name Value Range Interpretation Code Description Data Valentina rce(s) Supporting Document(s) Progress Note [facility] WPYFXb1xPsNUQrQi55/HGTzkAGGca0GgDYyaEVm4DDviWNLnW9ThVHF0yS2mSDH8BIbIZvIeKlPiTDL4 lbm [file] 5FPZRVR4JOZp== ID Date Data Source [id number] 12/02/2020 05:49:00 PM EST [facility] ([facility]) Name Value Range Interpretation Code Description Data Valentina rce(s) Supporting Document(s) Influenza virus A RNA [Presence] in Unsp ecified specimen by Probe and target amplification method Laboratory test result [facility] ([facility]) Influenza virus B RNA [Presence] in Unsp ecified specimen by Probe and target amplification method Laboratory test result [facility] ([facility]) ID Date Data Source [id number] 12/02/2020 05:19:00 PM EST [facility] ([facility]) Name Value Range Interpretation Code Description Data Valentina rce(s) Supporting Document(s) Sars-CoV-2, Susu Laboratory test result Abnormal (applies to non-numeric results) [facility] ([facility]) This nucleic acid amplification test was developed and its performance characteristics determined by [employer] Nucleic acid amplification tests include RT-PCR and [...] finding (navigational concept) Laboratory test result [facility] ([facility]) ID Date Data Source [id number] 12/02/2020 05:19:00 PM EST [facility] Name Value Range Interpretation Code Description Data Valentina rce(s) Supporting Document(s) SARS coronavirus 2 RNA Detected [facility] This lab was ordered by [facility] hood and reported by [employer]. ID Date Data Source [id number] 12/04/2020 04:08:[address] [facility] Name Value Range Interpretation Code Description Data Valentina rce(s) Supporting Document(s) SARS-CoV-2, SUSU Detected Not Detected [facility] This nucleic acid amplification test was developed and its performancecharacteristics determined by [employer] Nucleic acidamplification tests include RT-PCR and TMA. [...] assay. ORDER COVID [address] [facility] ID Date Data Source [id number] 12/02/2020 05:19:00 PM EST [facility] ([facility]) Name Value Range Interpretation Code Description Data Valentina rce(s) Supporting Document(s) Laboratory test finding (navigational concept) [facility] ID Date Data Source [id number] 11/26/2020 02:33:16 PM EST [facility] Name Value Range Interpretation Code Description Data Valentina rce(s) Supporting Document(s) Progress Note [facility] VSWBFv2aVdZTLeCt12/BNVswKCDpa2SyMEnlHXt7ZGzrWHAvP1PtRNP7uX3rNUX1TFsUSaGcBjJzBJZ5 [facility] [file] AgICAgICAgICAgICAgICAgICAgICAgICAgICAgICAg ICAgICAgICAgICAgICAgICAgDQogICAgICAgICAgICAgICAgICAgICAgICAgICAgICAgICAgICAgICAg ICAgICAgICAgICAgICAgICAgICAgICAgICAgICAgICAgICAgICAgICAgICAgICAgICAgICAgICAgICAg DQogICAgICAgICAgICAgICAgICAgICAgICAgICAgIC AgICAgICAgICAgICAgICAgICAgICAgICAgICAgICAgICAgICAgICAgICAgICAgICAgICAgICAgICAgIC AgICAgICAgICAgDQogICAgICAgICAgICAgICAgICAgICAgICAgICAgICAgICAgICAgICAgICAgICAgIC AgICAgICAgICAgICAgICAgICAgICAgICAgICAgICAg ICAgICAgICAgICAgICAgICAgICAgDQogICAgICAgICAgICAgICAgICAgICAgICAgICAgICAgICAgICAg ICAgICAgICAgICAgICAgICAgICAgICAgICAgICAgICAgICAgICAgICAgICAgICAgICAgICAgICAgICAg ICAgDQogICAgICAgICAgICAgICAgICAgICAgICAgIC AgICAgICAgICAgICAgICAgICAgICAgICAgICAgICAgICAgICAgICAgICAgICAgICAgICAgICAgICAgIC AgICAgICAgICAgICAgDQogICAgICAgICAgICAgICAgICAgICAgICAgICAgICAgICAgICAgICAgICAgIC AgICAgICAgICAgICAgICAgICAgICAgICAgICAgICAg ICAgICAgICAgICAgICAgICAgICAgICAgDQogICAgICAgICAgICAgICAgICAgICAgICAgICAgICAgICAg ICAgICAgICAgICAgICAgICAgICAgICAgICAgICAgICAgICAgICAgICAgICAgICAgICAgICAgICAgICAg ICAgICAgDQogICAgICAgICAgICAgICAgICAgICAgIC AgICAgICAgICAgICAgICAgICAgICAgICAgICAgICAgICAgICAgICAgICAgICAgICAgICAgICAgICAgIC AgICAgICAgICAgICAgICAgDQogICAgICAgICAgICAgICAgICAgICAgICAgICAgICAgICAgICAgICAgIC AgICAgICAgICAgICAgICAgICAgICAgICAgICAgICAg IURtNUAdGGFqYAEvTGTrTBKoZJVjRISqHXXrDYs7S3zdYHGeGKEmIM8gLKf0Wt1+SLiINwFaSOI2otIq uF4SUR5gq2TxIYhhDBOij9UsIGf3MM2YTCDoEOadZJ5DHGbhzj3MKFKbPUWzgOFRq1dmNpFfQKA5CNZb HgouVF6KHJZiG0jeqfEnOGFdETGGWBsgWJYEWVEsIG DtDvDnElAgMZNgXMVbCTCVJYQ2HEMuUvXmXQglDU3Zp6YfvKB3BSn+Os3BVS7ik9ZgDRj8IEGkKM3oke 3JSViHHoFsX2XzdiS5DSObYMOpYf3QBBHgCKMbvMJ4HZWeZYJXDaRmL5AshV63XRHLHp4+DQplbmRvYm xZSgAdCVPbw1FnKXw6BK9GUIQbGTf7vLNpDCLlZ9Qu i5GaDz88VGAqUphzZ9bolovjDFzvKK6jxiogITMAOKIXkRDrBIGeQD4sAL9fQNSqMGCnMdLlTCSNEY0U XWDvMHEyePAlMYJmDFQDIB4NNDpsBNV2WWCmyrXxdLGtWSezPC0EMMUlwxOvOHpoUVDEGBi+Dh9JSX2m f8XwQBe5AUHku7UqCEq2UT1DYZAtMBpeTPCsWQ4yh6 GuT6H5GxL5bPNtH6gixzeeH8OpqvSbcxOhHDExWQHjVM5RKC0WXI6RDKMvWWvgQZ0PTGR9MXa2CwD7GM qcQINbXTN1Cm8jPOqeDA8DBUa4U0HeP0VIACOmMTIQGSGksSM4NKRYBf3QT2RYTwwJEFTVEi5QPjKpW5 VOD8cWA74RTF9VFVG+PiANCj4+DQplbmRvYmoNCjUx JMOjz9TjXFg5RS8ZWXPhBTlsAC2CFHLgfX4hIZxrAQ5MJvN5PkCsRVKJIvUjG39roBWxJAo9Q5IhRiCq ZGVkRmlsZXMgPDwvTmFtZXMgWyBdDQogID4+ID4+XFbqRZ5NHAkwmzWoYRUxRq6ZXYAhXAIvNZ0cYOLm ITReA9M3xOkePRYLEhDlH6topmzfGF3jLPLpI914vX eeafYtTKS0VUVnAz7WDVKnOLC2TCWrjAKjDJriJGPWTXzsMF1MfOBhZDT0sU5bUIcuLQDfVRXaC4hIIu HdvSfuYO09xBuzldTzxMDlOQc+Cb3FDQ4br5TgITh9kqHmGEzsJPGnNJduHHKpKGHkOGZiMRU5JWI1ZP QLLwFiSNMqUHPqPQqmCBQfCGWbof7DYEDuJFC3YEH1 XaMpWYAyRRFxGPulUPYnTChfWWj0IGPzLGErZS0JDqKqZCAeQKZiVXprHJWjWSTliz4NZHVmWKHdHNW3 YzVqNSXbFXHfLQusBGJoIZH7AGM1RNRzWHGbNQ9ZWdEiFBQnKOjlQEXvBLVvIRNzmp6UTAXaDET5Vnp0 GcBtFHIgYKDuOWzaEUMbWQD6YVRoGAWfANUyAA5TQh KqQCZsKJM4DJFjJQFbOUWtoi7KNNGfGDObYbG3RXQsQMMuAKImFBhgGFQgVJG1MOFfOYEjEDQdFV2SPe UlREGvLAq2DUwmAFPeSTMgwv3SEAYpBZXvDPW8QKMfDGZpWTLyXFtyRLLmEJI1CwK8AENtBYDkCT5QHh JnUCLvQtx7HzUiOPUjOLLzai4VQTMvEVEhOYY2DtTp DSTfQYXlHUmtXQEgMZJ0EAX2DHDtNEImVO2GIiUrJDWlAakzHgXkYSKnAZBkje2LZVYsWAUzTIJrLbJf WKJzWAIaNGokQRVuBADwIsc3KZUpITMgZU4JPtFmYKViNiO3LpxrQQDvYSEzgt4OAYLsUMKzIIy3YdIh EWVvKDHmPJcjQRSmPWOaTKU5NAZdMQEzJT0SQvUyZM EtFiS0KWbaDTWvZRHmfa2JPQQhYLF0GLy2CEZyJAPsIQJaENvtXJIeFLYtLnKbMUBvWMZiSU5PWkSfDP MoJbP1YBNfEISxLXZbxb6SENIbKCZ1Vbg0ZMPkJWJpESQnYMgzNROqPWFlAVJ1CTGgDBMkYG1KSqAvAP BjLxBnKUDqNPSwETWfxp5WJOTnJBQ9TSR4BWQrDVEf DOErETacQSVlXUT5RtYzXIKdMKVmQA0UYiZqYZWkKeX0VJRbBZPhYBHviy2YLPZxISD8GKL2TTMkGLUd TSGdHSaaUWKxMTM8Veo8IXJaHUAzKB1EFyUgPSTlEzj1PQAaTJIyGMZefj7DAGRmKQM0JNF7AUCsJGLw DTDwOFonWXGpUVemYdk4OVUyJEUjLK7OIcWrLYWbBc XwZbJdTJBxZPNral1VDZYhEOW5YPKtGgYnIKZgXBZuUNrlAJCqUCwiWeS2FOCpBUFcQL3ZZnNqGCTbSA e8ASKgEABjROZkws0ACHMhQZT9KXb5LIZlZCOtZLUdPQccMRJaBRsvERC0GSWkOBZvRK1ENgNjNBUlUU Z9RBSzIOFmQLVjlp5FYRShWMQ0JZQ4GTFrYGInCVRc WAlqIGFyYYjwGTI4AQXhYDLpVW2JRxJhJNVbKXD1SSzbNJNxYEIjuu9BYUByKEO8RbM8SISbCQEqLOAe TFmnECFoFWfiMBY8BIVtJQKlQS4NNrNtFXaoXESLVdf9VZcrB8n8LEY5Vx5KK3Mag5AxWFYpCZFQUHuy MT3muwVoPYDrUt8LG5pUJpv4Ttc0XgX0ObNkIIBpZT OsGiHjD9DwYFOiE3QcOKN4KD0pYNxyXFRaMmneJVWxKIOtFsCfDJDrRUL6CODkUsNyWCkzXrEwYU1GEd 1QSaU6NJB0qDBdOb3MHLTtRoLBFiJmHG2MIWz= ID Date Data Source [id number] 11/18/2020 02:06:26 PM [facility] Name Value Range Interpretation Code Description Data Valentina rce(s) Supporting Document(s) Progress Note [facility] ZLYJLs2mEeQOMdCc42/CTBpkOYTfp5VvTOozGLi6YWiiAQFsG9LsBHZ4zG8wODI0YGqCUyNoTeTjDHPg lbm [file] JYNDMpNbOM8JZWb= ID Date Data Source [id number] 11/18/2020 02:05:56 PM [facility] Name Value Range Interpretation Code Description Data Valentina rce(s) Supporting Document(s) Progress Note [facility] WGSUHu1iLgIRXoGm14/PEVvzKVYmh3SrINdrTQt5IWbnWITsF9ObVJZ2vC0qKGY1VPkEGsKqOlPzFODb lbm [file] HJDrZOEoHKfhCkVcUX5XIw1JWgL9ZEV3yZWhBe6VFxZtOhqIJtOyNG6YBAy= ID Date Data Source [id number] 11/18/2020 04:26:00 PM [facility] CYTOPATHOLOGY REPORTName: AIDAN ACUÑAMRN: [id number] Number: [id number] Date: 11/15/2020 00:00Received Date: 11/15/2020 12:24Physician(s): SANDRA HUBBARD MD DHIR, MASHAAL, MD Copy To:WIL COOMBSpeckeri(s) ReceivedA: PANCREATIC HEAD MASS, FINE NEEDLE ASPIRATION, CONSULTATION ([id number])10/28/2020Clinical History:50 year old male with a 4.5 cm pancreatic head mass and multiple livernodule. Pancreatic FNA performed 10/28/20, evaluated at [facility], submitted for consultation.DiagnosisPANCREATIC HEAD MASS, FINE NEEDLE ASPIRATION, CONSULTATION ([id number])10/28/2020: POSITIVE FOR MALIGNANCY, ADENOCARCINOMAComment/cts/calReviewing Cytotech: NICK Pereira(ASCP) [...] and synaptophysin./cts Gross DescriptionReceived 14 slides labeled "[id number], Aidan Acuña" with correspondingpathology report for consult from [facility],[place] [address] .This report may include one or more immunohistochemical stain results thatuse analyte specific reagents. All positive and negative controls havebeen reviewed by the attending pathologist and are satisfactory. The testswere developed and their performance characteristics determined by [facility] Pathololgy department. They have not been cleared or approved by [place] Food and Drug Administration. The FDA has determined that suchclearance or approval is not necessary. Name Value Range Interpretation Code Description Data Valentina rce(s) Supporting Document(s) ID Date Data Source [id number] 10/28/2020 09:23:43 AM EST [facility] NT INFORMATIONPatient MRN Name Date of Age Gend*PT [id number] Aidan Acuña 1970 50 years M OPPT Location Admission Date/Time Visit ID Attending ProviderEndo [place] 10/28/20 0702 --- Ted Coombs DO([id number]) EPI ID CSN Admitting Provider [id number] Ted Coombs DO([id number])Endoscopic Gastroduodenoscopy with Endoscopic Ultrasound Procedure NotePatient: Aidan [...] ofintervening blood vessels. Using a 22 gauge [employer] Acquired EUSaspiration needle, two needle passes were [...] Coombs DO 10/28/2020 0847A : Tissue FNA [facility] CYTOLOGY, LEUKEMIA / LYMPHOMA PHENOTYPE, SURGICAL PATHOLOGYEXAM Ted Coombs DO 10/28/2020 0848B : Tissue Biopsy SURGICAL PATHOLOGY EXAM Ted Coombs DO 10/28/2020 0847Complications: None; patient tolerated the procedure well.Estimated Blood Loss: noneTed Coombs DO10/28/20209:05 AM Name Value Range Interpretation Code Description Data Valentina rce(s) Supporting Document(s) ID Date Data Source [id number] 10/30/2020 11:20:51 AM EST [facility] Name Value Range Interpretation Code Description Data Valentina rce(s) Supporting Document(s) SOURCE (RESOE) [facility] PANCREATIC HEAD MASS RESULT [facility] PERFORMING LAB [facility] [address] [place] [address] ID Date Data Source [id number] 10/28/2020 08:15:18 AM EST [facility] HospitalPATIE NT INFORMATIONPatient MRN Name Date of Age Gend*PT [id number] Denisha Aidan L 1970 50 years M OPPT Location Admission Date/Time Visit ID Attending ProviderEndo [place] 10/28/20 0702 --- Ted Coombs DO([id number]) EPI ID CSN Admitting Provider [id number] Ted Coombs DO([id number])HISTORY AND PHYSICALGail L DowningMRN: [id number]: Bile duct stricturePLAN:1. Proceed with EUS exam [...] Take 1 tablet by mouth daily 10/27/2020 [id number] gabapentin (NEURONTIN) 100 MG capsule Take 100 [...] Take 15 mg by mouth daily 10/27/2020 [id number] Medical History:Past Medical History:Diagnosis Date Asthma Diabetes [...] rce(s) Supporting Document(s) ID Date Data Source [id number] 10/28/2020 07:40:41 AM EST [facility] Name Value Range Interpretation Code Description Data [facility] rce(s) Supporting Document(s) POC NOVA GLU 202 mg/dL (70-99) H Lab [facility] PERFORMED BY [facility] CLINICAL STAFF ID Date Data Source [id number] 10/31/2020 05:49:51 PM EST [facility] LABORATORY [address] [address]Pzx# MISCELLANEOUS CYTOLOGY REPORTAccession Number: [id number] [id number] Specimen(s): A: Pancreas Mass Aspirate Head [...] by immunostaining for cytokeratin AE1/3, cytokeratin 19 evyJV38-2. A mucin stain highlights a rare mucin vacuole. Theneuroendocrine markers synaptophysin and chromogranin are negative. Processed and screened at [facility],Cytology, [address] [place] [address], [id number].As applicable, positive and negative controls for all immunohistochemicaland/or special stains were reviewed and considered appropria te. Reported: 10/31/2020Electronically Signed Out By Jamey Tam [facility] PatholoCytotechnologist: Dennise Moffett CT(ASCP)[facility]mwgICD code: K87CPT code: A: 23226F, 87135J, 45504r, 77859(4), 56101T Name Value Range Interpretation Code Description Data Valentina rce(s) Supporting Document(s) ID Date Data Source [id number] 10/24/2020 11:03:20 AM EST [facility] Name Value Range Interpretation Code Description Data Valentina rce(s) Supporting Document(s) EKG [facility] GTENWr5cMeXRMwErx1IuDwRbFEXeSS7wxjk1Y3H0oTEfC8OoePOjb9wyY4HkQ7OcNPZmWVXPCP5InWVc jb2 [file] pYYioXZ3W+company secretary+9VAUk0bjWtPi2VB4aM1FQNQihoGc [file] DRNCG7Znd5WtNNBfLBVICb4+RhZ9EVM9lHVrCon1NsX1TlprBEAPMi== ID Date Data Source [id number] 10/26/2020 01:37:45 PM EST [facility] Name Value Range Interpretation Code Description Data [place] rce(s) Supporting Document(s) SARS-COV-2 SUSU [facility] Reference range: NOT DETECTED The refere [...] specimens were analyzed for COVID-19 using rev caid-anegwoxymnrlq-Rvik time PCR (blow mold technician-PCR) using primer and probe sequences validated by [...] on January 06, 2020. FIRST TEST [facility] [employer] SYMPTOMATIC [facility] DATE OF SYMPT ONSET [facility] CONGREGATE CARE SET [facility] ID Date Data Source [id number] 10/24/2020 09:05:00 AM EST [facility] Name Value Range Interpretation Code Description Data Valentina rce(s) Supporting Document(s) SARS coronavirus 2 RNA [Presence] in Res piratory specimen by SUSU with probe detection [facility] This lab was ordered by [facility] and reported by [facility]. ID Date Data Source [id number] 10/24/2020 12:56:45 PM EST [facility] Name Value Range Interpretation Code Description Data Valentina rce(s) Supporting Document(s) HEMOGLOBIN A1C @ 8.4 % (4.0-6.0) H [facility] Performed using Siemens Gold Bar immunoassa y.Care must be taken when interpreting JhM7crogleoe in patients with a hemoglobin variantor decreased erythrocyte lifespan. Values 5.7 - 6.4% suggest prediabetes.Values >=6.5% are diagnostic for diabetes.REFERENCE: DIABETES CARE 2018: 41(S13-S27). EST AVERAGE GLUCOSE 194 mg/dL [facility] ID Date Data Source [id number] 10/24/2020 12:07:53 PM EST [facility] Name Value Range Interpretation Code Description Data Valentina rce(s) Supporting Document(s) SODIUM 140 mmol/L (136-145) [facility] POTASSIUM 3.8 mmol/L (3.6-5.2) [facility] CHLORIDE 106 mmol/L (100-108) [facility] CO2 25 mmol/L (22-31) [facility] ANION GAP 9 mmol/L (7-16) [facility] UREA NITROGEN 8 mg/dL (7-24) [facility] CREATININE 0.66 mg/dL (0.80-1.30) L [facility] BUN/CREAT RATIO 12.1 RATIO (10.0-20.0) [facility] GLUCOSE 186 mg/dL (70-99) H [facility] CALCIUM 8.6 mg/dL (8.4-10.2) [facility] GFR >60 ml/min/1.73m2 (>59) [facility] GFR ( AMER) >60 ml/min/1.73m2 (>59) [facility] GFR INTERPRETATION [facility] --NORMAL KIDNEY FUNCTION OR MILD DISEASE - GFR >OR= 60CHRONIC KIDNEY DISEASE - GFR 15 - 59RENAL FAILURE - GFR <15 Est. GFR calculation based on the MDRDstudy equation, which assumes a steadystate for creatinine. Est. GFR should notbe used for medication dosing. ID Date Data Source [id number] 10/24/2020 08:43:31 AM EST [facility] HospitalPATIE NT INFORMATIONPatient MRN Name Date of Age Gend*PT [id number] Aidan Acuña 1970 50 years M OPPT Location Admission Date/Time Visit ID Attending Provider --- --- --- Ted Coombs DO([id number]) EPI ID CSN Admitting Provider [id number] ---OUTPATIENT / OBSERVATIONAL SURGICAL OR INVASIVE PROCEDUREName: [...] thyromegaly. No carotid bruits.MENTAL / NEUROLOGICAL STATUS: PWYt5DUTCZ: Clear to auscultation. No wheezes, rhonchi or [...] parts of this document, were dictated using [employer] speaking software. A reasonable attempt at proofreading has beenmade to minimize errors. Please call with any questions or corrections.* Name Value Range Interpretation Code Description Data Valentina rce(s) Supporting Document(s) ID Date Data Source [id number] 10/11/2020 05:39:00 PM [facility] Surgical Pathology ReportName: AIDAN ACUÑAMRN: [id number] Number: [id number] Date: 10/09/2020 00:00Received Date: 10/09/2020 12:44Physician(s): KARON VENTURA MD VYAS, SHIKHAR G,THERONpecimen(s) ReceivedA: Material received for consultation DZClinical HistorySecond opinion.DiagnosisOUTSIDE CASE [id number], 10/02/20:DUODENUM, EROSIONS, BIOPSY: MUCOSAL EROSIONS WITH FOCI OF ATYPICALGLANDS. (See Microscopic Description).Electronically Signed By Isaac Dobbins M.D., Attending Amxusnuqcuf62/4/2020 17:39:48 Gross Description[facility] [place], [place], are 1 H and Estained slide and 1 paraffin block, labeled [id number], with thecorresponding pathology report. Also received: Report of Operation, dated 10/02/2020.Microscopic DescriptionSections show duodenal mucosa with foci of mildly atypical glandssurrounded by clefting. Additional rec[facility] andow areas of mucosal erosion. [facility] for CD31 and D2-40 do not [...] developed and their performance characteristics determined by [facility] Pathology department. They have not been cleared or approved by the USFood and Drug Administration. The FDA has determined that such clearanceor approval is not necessary. Name Value Range Interpretation Code Description Data Valentina rce(s) Supporting Document(s) ID Date Data Source [id number] 09/29/2020 10:10:[address] [facility] [address] [facility] Emergency Department [address] [place] [address] Phone #: ext- [phone] 09/29/2020 10:06 [id number] Sex: M : 1970 Age: 50yWEIGHT:136.0 kg (S) HEIGHT:69 inches (S) BMI:44.3ALLERGIES: No Known Drug AllergyCHIEF COMPLAINT: abdominal pain, vomiting, nausea, crampsDIAGNOSIS: Urinary tract infectious disease, Pancreatitis, Inflammatory disease of liverLAB ORDERSOrder Description Priority Entered Acknowledged InitialedUrinalysis (Clean STAT 10:32 09/29/2020 12:15 AvellaCatch) [facility] chief airline radio operator, [place] [facility] Physician; Hxze4Mqlnbqvr-N STAT 10:32 09/29/2020 10:33 [facility] chief airline radio operator, [place] [facility] Physician; Coyy7Frfelr STAT 10:32 09/29/2020 10:33 [facility] chief airline radio operator, [place] [facility] Physician; Uebc3Owpfot Acid STAT 10:32 09/29/2020 10:33 [facility] chief airline radio operator, [place] [facility] Physician; Mday7XPO STAT 10:32 09/29/2020 10:33 [facility] chief airline radio operator, [place] [facility] Physician; Ctmz1VZ/INR STAT 10:32 09/29/2020 10:33 [facility] chief airline radio operator, [place] [facility] Physician; Leco2KCR STAT 10:32 09/29/2020 10:33 [facility] chief airline radio operator, [place] [facility] Physician; Fdtn8PQG w Diff STAT 10:32 09/29/2020 10:33 [facility] ED Te ch, [place] [facility] Physician; [id number] STAT 10:32 09/29/2020 10:33 [facility] chief airline radio operator, [place] [facility] Physician; [id number], Urine STAT 10:32 09/29/2020 12:15 Avella(Urine, Clean [facility] chief airline radio operator, [place] ERCatch) Physician; Tech1 [address] [facility] Emergency Department [address] [place] [address] Phone #: ext- [phone] 09/29/2020 10:06 Patient: AIDAN ACUÑA Sex: M [...] 13:33 09/29/2020 14:04 Loraine(1gm/50mL) IVPB Tai Horta [id number] mg with Physician;Dextrose 50 mlspike bag (D5W)Morphine IVP 2 mg 13:48 09/29/2020 14:05 Loraine(NOW, HIGH ALERT Tai Horta RNMEDICATION) Physician;GENERAL ORDERSOrder Description Priority Entered Acknowledged Initialed [address] [facility] Emergency Department [address] [place] [address] Phone #: ext- [phone] 09/29/2020 10:06 Patient: AIDAN ACUÑA Sex: M : 1970 Age: 50yCardiac Monitor 10:32 09/29/2020 10:33 Marie(continuous) Tai Schaefer chief airline radio operatorPorfirio ER Physician; [id number] 10:32 09/29/2020 10:33 Marie Schaefer chief airline radio operatorPorfirio ER Physician; [id number] Lock 10:32 09/29/2020 10:33 Loraine Horta RN Physician;Pulse oximeter 10:32 09/29/2020 10:33 Marie(Spot Check) Tai Schaefer chief airline radio operatorPorfirio Physician; Tech1[Electronically signed by Loraine Horta RN (14:09/29/2020)][Electronically signed by Tai Schaefer Physician (20:11 )][Electronically locked by Loraine Horta RN (09/29/2020)] Name Value Range Interpretation Code Description Data Valentina rce(s) Supporting Document(s) ID Date Data Source [id number] 09/29/2020 10:10:[address] [facility] [address] [facility] Emergency Department [address] [place] [address] Phone #: [phone]- [phone] 09/29/2020 10:06 Patient: AIDAN ACUÑA Sex: M [...] 09/29/2020 1:43:00 PM [address] [facility] Emergency Department [address] [place] [address] Phone #: ext- [phone] 09/29/2020 10:06 Patient: AIDAN ACUÑA Sex: M : 1970 Age: 50yMorphine [IVP] IVP 2 mg diluted in NS 10 mL, administered: 09/29/2020 1:43:00 PMIV NS IV Fluids bolus 0, then 125 mL/hr, administered: 09/29/2020 12:34:00 PMThe following Medications were prescribed to the patient:None. Name Value Range Interpretation Code Description Data Valentina rce(s) Supporting Document(s) ID Date Data Source [id number] 09/29/2020 10:10:[address] [facility] [address] [facility] Emergency Department [address] [place] [address] Phone #: [phone]- [phone] 09/29/2020 10:06 Patient: AIDAN ACUÑA Sex: M : 1970 Age: 50yWeight: 136.0 kgHeight/Length: 69 inBMI: 44.3ALLERGIES: No Known Drug Allergy Date/Time Medication Administered Medication OrderedStart IV NS IV NS : Bolus 1000 mL, then 94994:42 09/29/2020 Dose: IV Fluids mL/hr (can be titrated Víctor Horta RN Rate: 1000 mL/hr over 1 hour(s) additional physician instruction)---- Bolus: 1000 mL over 1 hour(s)Stop Dispensed: 1000 mL bag12:34 09/29/2020 Site: #1 left forearmTariq Henderson IV NS IV NS : Bolus 1000 mL, then 88210:34 09/29/2020 Dose: IV Fluids mL/hr (can be titrated Víctor Horta RN Rate: 125 mL/hr over 8 hour(s) additional physician instruction)---- Dispensed: 1000 mL bagContinued Upon Transfer Site: #1 left upedvwe94:17 09/29/2020Tariq Henderson PROTONIX [IVPB] (PANTOPRAZOLE Protonix IVPB 40 [...] forearmStart ROCEPHIN (1GM/50ML) [IVPB] Rocephin (1gm/50mL) IVPB 051553:43 09/29/2020 (CEFTRIAXONE SODIUM) mg with Dextrose 50 [...] rce(s) Supporting Document(s) ID Date Data Source [id number] 09/29/2020 10:10:[address] [facility] [address] [facility] Emergency Department [address] [place] [address] Phone #: ext- [phone] 09/29/2020 10:06 Patient: [...] rce(s) Supporting Document(s) ID Date Data Source [id number] 09/29/2020 10:10:[address] [facility] 1 Clinical Report - Nurses [facility] Emergency Department [address] [place] [address] Phone #: ext- [phone] 09/29/2020 10:06 Patient: [...] hodgkins lymphoma; [place] 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 2 Clinical Report - Nurses [facility] Emergency Department [address] [place] [address] Phone #: ext- [phone] 09/29/2020 10:06 Patient: [...] liver CA 3 Clinical Report - Nurses [facility] Emergency Department [address] [place] [address] Phone #: ext- [phone] 09/29/2020 10:06 Patient: AIDAN ACUÑA Sex: M : 1970 Age: 50y Mother had Colon CA). --10:46 09/29/20 Tai Schaefer, Physician. Interventions Identification band on patient. --10:13 09/29/20 Anna Alaniz R.N.PHYSICAL [id number]:17 09/29/20. Ambulatory to room.GENERAL / NEURO / [...] to the ED physician. . --10:45 09/29/20 Avella chief airline radio operatorPorfirio ER Tech1 ( Patient asked several times to get into a gown and refused.). --10:47 09/29/20 Avella chief airline radio operator, Porfirio, ER Tech1 10:42 09/29/2020 Started bag [...] 200 mL/hr 4 Clinical Report - Nurses [facility] Emergency Department [address] [place] [address] Phone #: ext- [phone] 09/29/2020 10:06 Patient: [...] to CT by wheelchair with mask and bomb technician. --11:33 09/29/20Loraine Horta RN11:46 09/29/20. Patient returned from CT by wheelchair with mask and bomb technician. --11:47 09/29/20Loraine Horta RN11:47 09/29/20. BP: 132/82. [...] fluids administered. ( [facility] --13:24 09/29/20 Loraine Horta RN 5 Clinical Report - Nurses [facility] Emergency Department [address] [place] [address] Phone #: ext- [phone] 09/29/2020 10:06 Patient: AIDAN ACUÑA Sex: M : 1970 Age: 50y 13:24 09/29/20. BP: 135/81. HR: 85. RR: 18. O2 saturation: 100%. --13:25 09/29/20 [facility] 12:34 09/29/2020 Started bag [...] rates pain 6/10 Accepted for transfer to [facility] direct admission to ICU, awaiting bed assignment). [...] Horta RN 6 Clinical Report - Nurses [facility] Emergency Department [address] [place] [address] Phone #: ext- [phone] 09/29/2020 10:06 Patient: AIDAN ACUÑA Sex: M : 1970 Age: 50y 14:07 09/29/20. Transferred to [facility]. Visit overview, summary of care [...] rce(s) Supporting Document(s) ID Date Data Source [id number] 09/29/2020 10:10:[address] [facility] 1 Clinical Report - Physicians/Mid Levels [facility] Emergency Department [address] [place] [address] Phone #: ext- [phone] 09/29/2020 10:06 [id number] Sex: M : 1970 Age: 50y Time [...] Non- Hodgkin's lymphoma and is seen at [facility] at [facility].). Recent medical care: The patient was seen recently at another facility in a clinic. ( [facility]).REVIEW OF SYSTEMSNo constipation, black stools, hematemesis, difficulty [...] HISTORY 2 Clinical Report - Physicians/Mid Levels [facility] Emergency Department [address] [place] [address] Phone #: ext- [phone] 09/29/2020 10:06 Patient: [...] CT ABD //T// PELVIS W/ IV ONLY [facility] [address] [place] [address] PHONE: [phone] FAX: [phone] Name .................. : DENISHA Gutierrez Acct Number.................. : [id number] ROOM. ................. : TR-05 MR Number ................... : [id number] Stay type ............. : E/R Discharge Date......... ... : Admit Date ......... : 09/29/20 Admit Phys .................... : OLIVE HERRERA Date of ....... : 1970 Family Phys ................... : CLARK HARD Phone .................. : [phone] Age ................................ : 50 Film# .................. .:[id number] Sex ................................. : M Unsigned transcriptions are preliminary reports and do not represent a medical or legal document 3 Clinical Report - Physicians/Mid Levels [facility] Emergency Department [address] [place] [address] Phone #: ext- [phone] 09/29/2020 10:06 Patient: AIDAN ACUÑA Sex: M [...] CT dose: 2284.3 mGycm Page 1of [address] [place] [address] PHONE: [phone] FAX: [phone] Name .................. : DENISHA Gutierrez Acct Number.................. : [id number] ROOM. ................. : TR-05 Number ................... : [id number] Stay type ............. : E/R Discharge Date......... ... : Admit Date ......... : 09/29/20 Admit Phys .................... : OLIVE HERRERA Date of ....... : Family Phys ................... : CLARK HARD Phone .................. : [phone] Age ................................ : 50 Film# .................. .:[id number] Sex ................................. : M Unsigned transcriptions are preliminary reports and do not represent a medical or legal document CT ABD Reason(s): Abdominal Pain Vomiting Contrast agent in mL: 75 Isovue 370 4 Clinical Report - Physicians/Mid Levels [facility] Emergency Department [address] [place] [address] Phone #: ext- [phone] 09/29/2020 10:06 Patient: AIDAN ACUÑA Sex: M [...] CT CTA CHEST NON-CORONARY W CON INC [facility] [address] [place] [address] PHONE: [phone] FAX: [phone] -- Name .................. : DENISHA Gutierrez Acct Number.................. : [id number] ROOM. ................. : TR-05 Number ................... : [id number] Stay type ............. : E/R Discharge Date......... ... : Admit Date ......... : 09/29/20 Admit Phys .................... : OLIVE HERRERA Date of ....... : 1970 Family Phys ................... : [employer] HARD Phone .................. : [phone] Age ................................ : 50 Film# .................. .:[id number] Sex ................................. : M -- Unsigned transcriptions are preliminary reports and do not represent a medical or legal document CT CTA CHEST NON-CORONARY W C [id number] COMPLETE:09/29/20 10:34 83032 Reason(s): Lower chest pain / NHL in [...] -- 5 Clinical Report - Physicians/Mid Levels [facility] Emergency Department [address] [place] [address] Phone #: ext- [phone] 09/29/2020 10:06 Patient: [...] 370 -- -- -- Page 1of [address] [place] [address] PHONE: [phone] FAX: [phone] -- Name .................. : DENISHA Gutierrez Acct Number.................. : [id number] ROOM. ................. : TR-05 MR Number ................... : [id number] Stay type ............. : E/R Discharge Date......... ... : Admit Date ......... : 09/29/20 Admit Phys .................... : OLIVE JAVIER Date of ....... : 1970 Family Phys ................... : CLARK HARD Phone .................. : [phone] Age ................................ : 50 Film# .................. .:[id number] Sex ................................. : M -- Unsigned transcriptions are preliminary reports and do not represent a medical or legal document CT CTA CHEST NON-CORONARY W C [id number] COMPLETE:09/29/20 10:34 05599 Reason(s): Lower chest pain / NHL in [...] Clear 6 Clinical Report - Physicians/Mid Levels [facility] Emergency Department [address] [place] [address] Phone #: ext- [phone] 09/29/2020 10:06 Patient: AIDAN ACUÑA Sex: M [...] (0.2 - 2.2)PTT: (VERONICA: 09/29/2020 10:17) ( [facility] 09/29/2020 10:55) Final results Test Result Flag Units (Reference) PTT 29.4 SECONDS (24.8 - 36.7)PT/INR: (VERONICA: 09/29/2020 10:17) ( MsgRcvd 09/29/2020 13:50) Final results Test Result Flag Units (Reference) PROTIME 11.3 SECONDS (11.0 - 15.5) TEST PERFORMED AT [address] [id number] CLIA# [id number] SEE SCANNED REPORT INR 1.10 (0.93 - 1.23) \\ BLDo\\INR INTERPRETATION\\BLDx\\ Therapeutic range for Coumadin andrelated oral anticoagulants. -International Normalized Ratio (INR): 2.0 - 3.0 for VenousThrombosis, Pulmonary Embolus, Tissue heart valves, Acute UT, Atrial Fibrillation, Valvular heartdisease and recurrent Systemic Embolism. -International Normalized Ratio (INR): 2.5 - 3.5for Mechanical Prosthetic valve.BNP: (VERONICA: 09/29/2020 10:17) ( [facility] 09/29/2020 11:12) Final results Test Result Flag Units (Reference) BNP 43 PG/ML (0 - 125)CBC w Diff: (VERONICA: 09/29/2020 10:17) ( [facility] 09/29/2020 11:14) Final results Test Result Flag Units (Reference) CBC W/AUTOMATED DIFF 7 Clinical Report - Physicians/Mid Levels [facility] Emergency Department [address] [place] [address] Phone #: ext- [phone] 09/29/2020 10:06 Patient: [...] 126) 8 Clinical Report - Physicians/Mid Levels [facility] Emergency Department [address] [place] [address] Phone #: ext- [phone] 09/29/2020 10:06 Patient: AIDNA ACUÑA Sex: M : 1970 Age: 50y [...] His lab work 2 days ago at [facility] was NL. His T. bili today is 5.5, lipase 1192 and SGOT / SGPT is 229/343. He also has an acute UTI. He clearly needs a higher level of care and I have spoken with Dr. Hickman (Service Department Manager) and Dr. Nam (Hospitalist) at [facility]. Dr. Nam will accept pt. for transfer. [...] to transfer explained to patient. Transferred to [facility]. Summary of care (CCDA) provided to transport team, EMS, patient, family and transfer facility via paper and digital media. 13:21 Sep 29 2020 Transfer to [facility] as direct admit to Dr. Nam (Accepting [...] jaundice). 9 Clinical Report - Physicians/Mid Levels [facility] Emergency Department [address] [place] [address] Phone #: ext- [phone] 09/29/2020 10:06 Patient: AIDAN ACUÑA Sex: M : 1970 Age: 50y(Electronically signed by Tai Schaefer, Physician 09/29/2020 20:11) Name Value Range Interpretation Code Description Data Valentina rce(s) Supporting Document(s) ID Date Data Source [id number] 09/29/2020 10:10:00 AM [facility] Addenda for AIDAN ACUÑA VisitID: [id number] Date: 15:24Pt urine growing E.C rosa 50- 100,000 and was transferred to [facility], pt is still there, faxed to [phone](Electronically signed by Anna Alaniz R.N. - 10/03/2020 15:24) Name Value Range Interpretation Code Description Data Valentina rce(s) Supporting Document(s) ID Date Data Source [id number] 10/01/2020 08:28:00 [place] [address] RESPIRATORY CARE REPORT ==== ---------NAME------- NUMBER SEX AGE ADMIT DISC. XRAY# F/C TYPEDENISHA BERMUDEZ L [id number] M 50 09/29/20 09/29/20 [id number] X6B E/R DATE OF : 1970 M/R# [id number] PH#: [phone] TR-05 LOCATION: EMERGENCY DEPT [facility] [address] COMP LETE:09/29/20 10:53 [facility] [address] PHYSICIAN: OLIVE HERRERA Name Value Range Interpretation Code Description Data Valentina rce(s) Supporting Document(s) ID Date Data Source [id number] 09/30/2020 12:02:00 [place] [address] PHONE: [phone] FAX: [phone] Name .................. : LINAING AIDAN L Acct Number.................. : [id number] ROOM. ................. : - Number ................... : [id number] Stay type ............. : E/R Discharge Date......... ... : Admit Date ......... : 09/29/20 Admit Phys .................... : OLIVE JAVIER Date of ....... : 1970 Family Phys ................... : CLARK HARD Phone .................. : [phone] Age ................................ : 50 Film# .................. .:[id number] Sex ................................. : M Unsigned transcriptions are preliminary reports and do not represent a medical or legal document CT CTA CHEST NON-CORONARY W C [id number] COMPLETE:09/29/20 10:34 75791 Reason(s): Lower chest pain / NHL in [...] 75 Isovue 370 Page 1 of 2 [facility] [address] [place] [address] PHONE: [phone] FAX: [phone] Name .................. : DENISHA Gutierrez Acct Number.................. : [id number] ROOM. ................. : TR-05 Number ................... : [id number] Stay type ............. : E/R Discharge Date......... ... : Admit Date ......... : 09/29/20 Admit Phys .................... : OLIVE HERRERA Date of ....... : 1970 Family Phys ................... : [employer] HARD Phone .................. : [phone] Age ................................ : 50 Film# .................. .:[id number] Sex ................................. 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 , 09/30/20 12:02, [facility] Transcribe Initials: DANILO , Transcribe Date: 09/29/20 13:20, Dictation Date: Copy for: EMERGENCY DEPT via modem Copy for: 710 MED REC DISCHARGED Page 2 of 2 Name Value Range Interpretation Code Description Data Valentina rce(s) Supporting Document(s) ID Date Data Source [id number] 09/30/2020 12:02:00 PM EST [facility] [address] [place] [address] PHONE: [phone] FAX: [phone] Name .................. : DENISHA Gutierrez Acct Number.................. : [id number] ROOM. ................. : TR-05 MR Number ................... : [id number] Stay type ............. : E/R Discharge Date......... ... : Admit Date ......... : 09/29/20 Admit Phys .................... : OLIVE HERRERA Date of ....... : 1970 Family Phys ................... : [employer] HARD Phone .................. : [phone] Age ................................ : 50 Film# .................. .:[id number] Sex ................................. : M Unsigned transcriptions are preliminary reports and do not represent a medical or legal document CT ABD & PELVIS W/ IV ONLY [id number] COMPLETE:09/29/20 10:34 98700 Reason(s): Abdominal Pain CT OF THE ABDOMEN [...] CT dose: 2284.3 mGycm Page [address] [place] [address] [place] [address] PHONE: [phone] FAX: [phone] Name .................. : DENISHA Gutierrez Acct Number.................. : [id number] ROOM. ................. : TR-05 Number ................... : [id number] Stay type ............. : E/R Discharge Date......... ... : Admit Date ......... : 09/29/20 Admit Phys .................... : OLIVE HERRERA Date of ....... : 1970 Family Phys ................... : EDUARDO HARD Phone .................. : [phone] Age ................................ : 50 Film# .................. .:[id number] Sex ................................. : M Unsigned transcriptions are preliminary reports and do not represent a medical or legal document CT ABD & PELVIS W/ IV ONLY [id number] COMPLETE:09/29/20 10:34 86091 Reason(s): Abdominal Pain Contrast agent in mL: 75 Isovue 370 Method of administration: Intravenous Electronically Reviewed and Signed By Aleksander Stovall M.D. , 09/30/20 12:02, [facility] Transcribe Initials: DZ , Transcribe Date: 09/29/20 13:13, Dictation Date: Copy for: EMERGENCY DEPT via [facility] Copy for: 710 MED REC DISCHARGED Page 2 of 2 Name Value Range Interpretation Code Description Data Valentina rce(s) Supporting Document(s) ID Date Data Source [id number] 09/29/2020 11:54:00 AM EST [facility] ([facility]) Name Value Range Interpretation Code Description Data Valentina rce(s) Supporting Document(s) Culture Urine Laboratory test result [facility] ([facility]) SOURCE: Clean Catch ID Date Data Source [id number] 09/29/2020 11:54:00 AM EST [facility] ([facility]) Name Value Range Interpretation Code Description Data Valentina rce(s) Supporting Document(s) Urinalysis Laboratory test result [facility] ([facility]) SOURCE: Clean Catch Color Laboratory test result [facility] ([facility]) SOURCE: Clean Catch Source Laboratory test result [facility] ([facility]) SOURCE: Clean Catch pH 5 5-9 [facility] ([facility]) SOURCE: Clean Catch Clarity Laboratory test result [facility] ([facility]) SOURCE: Clean Catch Spec [place] 1.015 1.001-1.030 [facility] ([facility]) SOURCE: Clean Catch Glucose 1000 Abnormal (applies to non-numeric res ults) [facility] ([facility]) SOURCE: Clean Catch Bilirubin 3 [facility] ([facility]) SOURCE: Clean Catch Ketone 50 Abnormal (applies to non-numeric res ults) [facility] ([facility]) SOURCE: Clean Catch Protein 15 [facility] ([facility]) SOURCE: Clean Catch Nitrite Laboratory test result [facility] ([facility]) SOURCE: Clean Catch Leuk Est 25 [facility] ([facility]) SOURCE: Clean Catch Blood 10 Abnormal (applies to non-numeric res ults) [facility] ([facility]) SOURCE: Clean Catch Microscopic Laboratory test result [facility] ([facility]) SOURCE: Clean Catch Urobilinogen 4 [facility] ([facility]) SOURCE: Clean Catch WBC Laboratory test result Abnormal (applies to non -numeric results) [facility] ([facility]) SOURCE: Clean Catch RBC Laboratory test result [facility] ([facility]) SOURCE: Clean Catch Bacteria Laboratory test result Abnormal (applies to non -numeric results) [facility] ([facility]) SOURCE: Clean Catch Epithelial Laboratory test result [facility] ([facility]) SOURCE: Clean Catch ID Date Data Source [id number] 10/03/2020 12:41:00 PM [facility] Name Value Range Interpretation Code Description Data Valentina rce(s) Supporting Document(s) CULTURE URINE [facility] _CULTURE URINE_$$[id number]$$839053$$183863$$124934$$455066$$871941$$887068$$555638$$009698$$ 334450$$343122$$496431$$944045$$600671$$022471$$447382$$428484$$542610$$968551$$ 559104$$833708$$686629$$069005$$705834$$405309$$128196$$083128 -- Continued on next page --Patient: DENISHA Gutierrez Order: [id number] Page 2Culture: CULTURE URINE Status: Final ====$$[id number]$$[id number] DATE/TIME: 10/03/2020 12:06Culture: CULTURE URINE Status: FinalIsolate [...] on 10/02/2020 01:51 ET Escherichia coliUrine Culture,Comprehensive: G1Jgwyjkhlyzc coli Flag: APatient: DENISHA BERMUDEZ Matt Order: [id number] Page 3Culture: CULTURE URINE Status: Final ====ISOLATE [...] S S . . . . . .14346-1Adptwfzieq S S . . . . . .267-5Imipenem S S . . . . . .279-0Levofloxacin S S . . . . . .73642-4Dcoujiuhn S S . . . . . .6652-2Nitrofurantoin S S . . . . . .363- 2Piperacillin/Tazobactam S S . . . . . .412-7Tetracycline S S . . . . . .496-0Tobramycin S S . . . . . .508-2Trimethoprim/Sulfa S S . . . . . .516-5P1 Test performed by: [facility] #: [id number] [address] [place] [id number] [facility] [id number] Director : Jasiel Pedraza MD NPI #:Science Interpreter : 10/03/[email or web address] REF ID Date Data Source [id number] 09/29/2020 01:04:[address] [facility] Name Value Range Interpretation Code Description Data Valentina rce(s) Supporting Document(s) [facility] URINALYSIS SOURCE R [facility] COLOR lucio NORMAL: Yellow [facility] CLARITY hazy NORMAL: Clear [facility] Specific gravity of Urine by Test strip 1.015 1.001 - 1.030 [facility] pH 5 5 - 9 [facility] Glucose [Mass/volume] in Urine by Test strip 1000 NORMAL: Negat haydee [facility] Bilirubin.total [Presence] in Urine by Test strip 3 NORMAL: Negative [facility] Ketones [Presence] in Urine by Test strip 50 NORMAL: Negative [facility] Protein [Mass/volume] in Urine by Test strip 15 NORMAL: Negat haydee [facility] Nitrite [Presence] in Urine by Test strip POS NORMAL: Negative [facility] BLOOD 10 NORM[address]: [address] A [facility] Leukocyte esterase [Presence] in Urine by Test strip 25 ROSANNE L: Negative [facility] Urobilinogen [Mass/volume] in Urine by Test strip 4 less leila n 1.0 mg/dL [facility] MICROSCOPIC See Below [facility] ital WBC 10 - 15 NORMAL: NONE SEEN [facility] Erythrocytes [#/volume] in Urine by Test strip 1 - 3 NORMAL: NON E SEEN [facility] EPITHELIAL FEW NORMAL: NONE SEEN [facility] Bacteria [Presence] in Urine sediment by Light microscopy 3+ LARGE NORMAL: NONE SEEN [facility] ID Date Data Source [id number] 09/29/2020 11:54:00 AM [facility] FAXED TO [facility] @ 4851um (09/29/20) TK Is patient on anticoagulants?: N Name Value Range Interpretation Code Description Data Valentina rce(s) Supporting Document(s) Prothrombin Time (Patient) 11.3 s 9.6-12.3 N [facility] INR 1.1 0.9-1.1 N [facility] THE INR IS OPERATIONALLY DEFINED FOR ZULEIMA SH PLASMA FROMPATIENTS STABILIZED ON ORAL ANTICOAGULANTS.ROUTINE ANTICOAGULANT THERAPY 2.0-3.0RECURRENT SYSTEMIC EMBOLISM/HEART VALVE REPLACEMENT 2.5-3.5 ID Date Data Source [id number] 09/29/2020 10:17:00 AM EST [facility] ([facility]) Name Value Range Interpretation Code Description Data Valentina rce(s) Supporting Document(s) Protime 11.3 s 11.0-15.5 [facility] ([facility]) TEST PERFORMED AT [facility] [address] [place] [address] CLIA# [id number] SEE SCANNED REPORT Inr 1.10 0.93-1.23 [facility] ([facility]) \\BLDo\\INR INTERPRETATION\\BLDx\\ Therapeutic range for Coumadin and related oral anticoagulants. -International Normalized Ratio (INR): 2 .0 - 3.0 for Venous Thrombosis, Pulmonary Embolus, Tissue heart valves, Acute UT, Atrial Fibrillation, Valvular heart disease and recurrent Systemic Embolism. -International Normalized Ratio (INR): 2 .5 - 3.5 for Mechanical Prosthetic valve. ID Date Data Source [id number] 09/29/2020 10:17:00 AM EST [facility] ([facility]) Name Value Range Interpretation Code Description Data Valentina rce(s) Supporting Document(s) Troponin T.cardiac [Mass/volume] in Serum or Plasma Laborato ry test result 0.00-0.10 [facility] ([facility]) TROPONIN T 0.1 ng/ml Recommended as the clinical th reshold value for Troponin T. Lipase [Enzymatic activity/volume] in Serum or Plasma 1102 U/L 13-60 Above high normal [facility] ([facility]) ID Date Data Source [id number] 09/29/2020 10:17:00 AM EST [facility] ([facility]) Name Value Range Interpretation Code Description Data Valentina rce(s) Supporting Document(s) CBC W/Automated Diff Laboratory test result [facility] ([facility]) COMPLETE BLOOD COUNT WBC 2.3 10^3/uL 4.2-11.0 Below low normal [facility] ([facility]) Hematocrit 46.0 % 41.0-51.0 [facility] ([facility]) Hemoglobin 16.0 g/dL 14.0-16.0 [facility] ([facility]) RBC 4.94 10^6/uL 4.50-6.30 [facility] ([facility]) MCHC 34.8 g/dL 31.0-36.0 [facility] ([facility]) MCV 93.1 fL 80.0-94.0 [facility] ([facility]) MCH 32.4 pg 27.0-34.0 [facility] ([facility]) MPV 10.2 fL 7.4-10.4 [facility] ([facility]) Platelets 128 10^3/uL 150-450 Below low normal [facility] ([facility]) RDW 13.2 % 11.5-14.8 [facility] ([facility]) Neut 55.0 % 37.0-80.0 [facility] ([facility]) [place] 19.0 % 3.0-8.0 Above high normal [facility] ([facility]) Eos 1.3 % 0.0-7.0 [facility] ([facility]) Lymph 23.8 % 25.0-40.0 Below low normal [facility] ( [facility]) Baso 0.9 % 0.0-2.0 [facility] ([facility]) %NRBC 0.0 % 0.0-0.0 [facility] ([facility]) %Ig 0.0 % 0.0-0.0 [facility] ([facility]) #Neut 1.27 10^3/uL 2.00-6.90 Below low normal [facility] ([facility]) #Lymph 0.55 10^3/uL 0.60-3.40 Below low normal [facility] ([facility]) #[place] 0.44 10^3/uL 0.00-0.90 [facility] ([facility]) #Eos 0.03 10^3/uL 0.00-0.70 [facility] ([facility]) #Baso 0.02 10^3/uL 0.00-0.20 [facility] ([facility]) #Ig 0.00 10^3/uL 0.00-0.10 [facility] ([facility]) Segs 58 % 37-80 [facility] ([facility]) #NRBC 0.00 10^3/uL 0.00-0.00 [facility] ([facility]) Manual Diff Laboratory test result M EDENT ([facility]) %Lymph 20 % 25-40 Below low normal [facility] ([facility]) %[place] 20 % 3-8 Above high normal [facility] ([facility]) Charla Lym 2 % [facility] ([facility]) RBC Morph Laboratory test result [facility] ([facility]) Aniso Laboratory test result Abnormal (applies to non -numeric results) [facility] ([facility]) { SICKLE CELL (NORMAL: NONE SEEN ) PLT Est Laboratory test result [facility] ([facility]) COMMENT: ID Date Data Source [id number] 09/29/2020 10:17:00 AM EST [facility] ([facility]) Name Value Range Interpretation Code Description Data Valentina rce(s) Supporting Document(s) Potassium 3.8 meq/L 3.6-5.0 [facility] ([facility]) Comprehensive Metabo Laboratory test result [facility] ([facility]) COMPREHENSIVE METABOLIC PANEL Sodium 133 meq/L 134-153 Below low normal [facility] ( [facility]) Chloride 97 meq/L 98-107 Below low normal [facility] ( [facility]) Co2 24 meq/L 22-30 [facility] ([facility]) BUN 8 mg/dL 7-21 [facility] ([facility]) Creatinine 0.4 mg/dL 0.7-1.5 Below low normal [facility] ( [facility]) Glucose 287 mg/dL 65-110 Above high normal [facility] ([facility]) BUN/Creat 20 8-27 [facility] ([facility]) Albumin 3.8 g/dL 3.9-5.0 Below low normal [facility] ( [facility]) Total Protein 7.8 g/dL 6.3-8.2 [facility] ([facility]) Calcium 9.6 mg/dL 8.4-10.2 [facility] ([facility]) Globulin 4.0 GM/DL 2.4-3.2 Above high normal [facility] ([facility]) A/G Ratio 1.0 0.8-2.0 [facility] ([facility]) Total Bili 5.5 mg/dL 0.2-1.3 Above high normal [facility] ([facility]) Alkaline Phos 394 U/L 38-126 Above high normal MEDE NT ([facility]) Anion Gap 12.0 mmol/L 8.0-16.0 [facility] ([facility]) SGPT/Alt 343 U/L 7-56 Above high normal [facility] ([facility]) Sgot/Ast 229 U/L 5-40 Above high normal [facility] ([facility]) Age 50 yrs [facility] ([facility]) Afr Amer GFR Laboratory test result [facility] ([facility]) Male GFR Interprentation 20-49 yrs >60 mL/min [...] Normal Non-Aa GFR Laboratory test result [facility] ([facility]) ID Date Data Source [id number] 09/29/2020 10:17:00 AM EST [facility] ([facility]) Name Value Range Interpretation Code Description Data Valentina rce(s) Supporting Document(s) Natriuretic peptide.B prohormone N-Terminal [Mass/volu me] in Serum or Plasma 43 pg/mL 0-125 [facility] ([facility]) aPTT in Platelet poor plasma by Coagulation assay 29.4 s 24.8-36. 7 [facility] ([facility]) Lactate [Mass/volume] in Serum or Plasma 1.7 mmol/L 0.2-2.2 [facility] ([facility]) ID Date Data Source [id number] 09/29/2020 01:49:00 PM [facility] Name Value Range Interpretation Code Description Data Valentina rce(s) Supporting Document(s) Prothrombin time (PT) 11.3 SECONDS 11.0 - 15.5 [facility] [place] [address] CLIA# [id number] SEE SCANNED REPORT INR in Platelet poor plasma by Coagulation assay 1.10 0.93 - 1. 23 [facility] \\BLDo\\INR INTERPRETATION\\BLDx\\ Therapeutic range for Coumadin and related oral anticoagulants. - International Normalized Ratio (INR): 2.0 - 3.0 for Venous Thrombosis, Pulmonary Embolus, Tissue heart valves, Acute UT, Atrial Fibrillation, Valvular heart disease and recurrent Systemic Embolism. -International Normalized Ratio (INR): 2.5 - 3.5 for Mechanical Prosthetic valve. ID Date Data Source [id number] 09/29/2020 11:23:00 AM [facility] Name Value Range Interpretation Code Description Data Valentina rce(s) Supporting Document(s) Lipase [Enzymatic activity/volume] in Serum or Plasma 1102 U/L 13 - [address] [facility] ID Date Data Source [id number] 09/29/2020 11:15:00 AM [facility] Name Value Range Interpretation Code Description Data Valentina rce(s) Supporting Document(s) TROPONIN T <0.01 NG/ML 0.00 - 0.10 [facility] TROPONIN T0.1 ng/ml Recommended as the c linical threshold value forTroponin T. ID Date Data Source [id number] 09/29/2020 11:13:00 AM [facility] Name Value Range Interpretation Code Description Data Valentina rce(s) Supporting Document(s) CBC W/AUTOMATED DIFF [facility] COMPLETE BLOOD COUNT Leukocytes [#/volume] in Blood by Automated count 2.3 10^3/uL 4.2 - [address] [facility] Erythrocytes [#/volume] in Blood by Automated count 4.94 10^6/uL 4. 50 - 6.30 [facility] Hemoglobin [Mass/volume] in Blood 16.0 g/dL 14.0 - 16.0 [facility] Hematocrit [Volume Fraction] of Blood by Automated count 46.0 % 4 1.0 - 51.0 [facility] Erythrocyte mean corpuscular volume [Entitic volume] by Auto mated count 93.1 fL 80.0 - 94.0 [facility] Erythrocyte mean corpuscular hemoglobin [Entitic mass] by Automated count 32.4 pg 27.0 - 34.0 [facility] Erythrocyte mean corpuscular hemoglobin concentration [Mass/volume] by Automated count 34.8 g/dL 31.0 - 36.0 [facility] Erythrocyte distribution width [Ratio] by Automated count 13.2 % 11.5 - 14.8 [facility] Platelets [#/volume] in Blood by Automated count 128 10^3/uL 150 - [address] [facility] Platelet mean volume [Entitic volume] in Blood by Automated count 10.2 fL 7.4 - 10.4 [facility] Neutrophils/100 leukocytes in Blood by Automated count 55.0 % 37. 0 - 80.0 [facility] Lymphocytes/100 leukocytes in Blood by Manual count 23.8 % 25.0 - 40.[address] [facility] Monocytes/100 leukocytes in Blood by Automated count 19.0 % 3.0 - 8.[address] [facility] Eosinophils/100 leukocytes in Blood by Automated count 1.3 % 0.0 - 7.0 [facility] Basophils/100 leukocytes in Blood by Automated count 0.9 % 0.0 - 2.0 [facility] %IG 0.0 % 0.0 - 0.[facility] 0.0 % 0.0 - 0.0 [facility] al Neutrophils [#/volume] in Blood by Automated count 1.27 10^3/uL 2.00 - 6.[address] [facility] Lymphocytes [#/volume] in Blood by Automated count 0.55 10^3/uL 0.60 - 3.[address] [facility] Monocytes [#/volume] in Blood by Automated count 0.44 10^3/uL 0.00 - 0.90 [facility] Eosinophils [#/volume] in Blood by Automated count 0.03 10^3/uL 0.00 - 0.70 [facility] Basophils [#/volume] in Blood by Automated count 0.02 10^3/uL 0.00 - 0.20 [facility] #IG 0.00 10^3/uL 0.00 - 0.10 [facility] #NRBC 0.00 10^3/uL 0.00 - 0.00 [facility] MANUAL DIFF SEE BELOW [facility] Segmented neutrophils/100 leukocytes in Blood by Manual count 58 % 37 - 80 [facility] %LYMPH 20 % 25 - 40 L [facility] %MONO 20 % 3 - 8 H [facility] CHARLA LYM 2 % [facility] RBC MORPH SEE BELOW [facility] Anisocytosis [Presence] in Blood by Light microscopy 1+ ROSANNE L: NONE SEEN A [facility] { SICKLE CELL (NORMAL: NONE SEEN ) Platelet adequacy [Presence] in Blood by Light microscopy NORMAL NORMAL: NORMAL [facility] COMMENT: ID Date Data Source [id number] 09/29/2020 11:12:[address] [facility] Name Value Range Interpretation Code Description Data Valentina rce(s) Supporting Document(s) COMPREHENSIVE METABOLIC PANEL [facility] COMPREHENSIVE METABOLIC PANEL Sodium [Moles/volume] in Serum or Plasma 133 mEq/L 134 - [address] [facility] Potassium [Moles/volume] in Serum or Plasma 3.8 mEq/L 3.6 - 5.0 [facility] Chloride [Moles/volume] in Serum or Plasma 97 mEq/L 98 - [address] [facility] Carbon dioxide, total [Moles/volume] in Serum or Plasma 24 MEQ/L 22 - 30 [facility] Glucose [Mass/volume] in Serum or Plasma 287 MG/DL 65 - [address] [facility] BUN 8 MG/DL 7 - 21 [facility] al Creatinine [Mass/volume] in Serum or Plasma 0.4 MG/DL 0.7 - 1.[address] [facility] BUN/CREAT 20 8 - 27 [facility] Protein [Mass/volume] in Serum or Plasma 7.8 G/DL 6.3 - 8.2 [facility] Albumin [Mass/volume] in Serum or Plasma 3.8 G/DL 3.9 - 5.[address] [facility] Globulin [Mass/volume] in Serum by calculation 4.0 GM/DL 2.4 - 3.[address] [facility] A/G RATIO 1.0 0.8 - 2.0 [facility] Calcium [Mass/volume] in Serum or Plasma 9.6 MG/DL 8.4 - 10.2 [facility] Bilirubin.total [Mass/volume] in Serum or Plasma 5.5 MG/DL 0.2 - 1.[address] [facility] Alkaline phosphatase [Enzymatic activity/volume] in Serum or Plasma 394 U/L 38 - [address] [facility] Aspartate aminotransferase [Enzymatic activity/volume] in Serum or Plasma 229 U/L 5 - [address] [facility] Alanine aminotransferase [Enzymatic activity/volume] in Seru m or Plasma 343 U/L 7 - [address] [facility] Anion gap 3 in Serum or Plasma 12.0 mmol/L 8.0 - 16.0 [facility] AGE 50 [facility] >60 mL/min [facility] ital AFR AMER GFR >60 mL/min [facility] Male GFR In terprentation 20-49 [...] >32 mL/min Normal ID Date Data Source [id number] 09/29/2020 11:12:00 AM [facility] Value Range Interpretation Code Description Data Valentina rce(s) Supporting Document(s) BNP 43 PG/ML 0 - 125 [facility] ID Date Data Source [id number] 09/29/2020 10:55:00 AM [facility] Value Range Interpretation Code Description Data Valenitna rce(s) Supporting Document(s) aPTT in Blood by Coagulation assay 29.4 SECONDS 24.8 - 36.7 [facility] ID Date Data Source [id number] 09/29/2020 10:54:00 AM [facility] Value Range Interpretation Code Description Data Valentina rce(s) Supporting Document(s) Lactate [Moles/volume] in Serum or Plasma 1.7 MMOL/L 0.2 - 2.2 [facility] ID Date Data Source [id number] 08/27/2020 08:32:00 AM EDT [facility] ([facility]) Name Value Range Interpretation Code Description Data Valentina rce(s) Supporting Document(s) Protime 13.6 s 11.0-15.5 [facility] ([facility]) Inr 1.03 0.93-1.23 [facility] ([facility]) PTT 29.2 s 24.8-36.7 [facility] ([facility]) \\BLDo\\INR INTERPRETATION\\BLDx\\ Therapeutic range for Coumadin and related oral anticoagulants. -International Normalized Ratio (INR): 2 .0 - 3.0 for Venous Thrombosis, Pulmonary Embolus, Tissue heart valves, Acute [place] Atrial Fibrillation, Valvular heart disease and recurrent Systemic Embolism. -International Normalized Ratio (INR): 2 .5 - 3.5 for Mechanical Prosthetic valve. ID Date Data Source [id number] 08/27/2020 08:32:00 AM EDT [facility] ([facility]) Name Value Range Interpretation Code Description Data Valentina rce(s) Supporting Document(s) Uibc 84 ug/dL 112-347 Below low normal [facility] ( [facility]) Iron 103 ug/dL 42-135 [facility] ([facility]) Tibc 187 ug/dL 250-450 Below low normal [facility] ( [facility]) Iron Sat 55 % [facility] ([facility]) ID Date Data Source [id number] 08/27/2020 08:32:00 AM EDT [facility] ([facility]) Name Value Range Interpretation Code Description Data Valentina rce(s) Supporting Document(s) Potassium 3.8 meq/L 3.6-5.0 [facility] ([facility]) Sodium 134 meq/L 134-153 [facility] ([facility]) Comprehensive Metabo Laboratory test result [facility] ([facility]) COMPREHENSIVE METABOLIC PANEL Chloride 100 meq/L 98-107 [facility] ([facility]) Glucose 325 mg/dL 65-110 Above high normal [facility] ([facility]) Co2 25 meq/L 22-30 [facility] ([facility]) Total Protein 7.9 g/dL 6.3-8.2 [facility] ([facility]) BUN/Creat 14 8-27 [facility] ([facility]) BUN 7 mg/dL 7-21 [facility] ([facility]) Creatinine 0.5 mg/dL 0.7-1.5 Below low normal [facility] ( [facility]) A/G Ratio 0.9 0.8-2.0 [facility] ([facility]) Albumin 3.7 g/dL 3.9-5.0 Below low normal [facility] ( [facility]) Globulin 4.2 GM/DL 2.4-3.2 Above high normal [facility] ([facility]) Calcium 8.9 mg/dL 8.4-10.2 [facility] ([facility]) Alkaline Phos 87 U/L 38-126 [facility] ([facility]) Total Bili 0.9 mg/dL 0.2-1.3 [facility] ([facility]) Anion Gap 9.0 mmol/L 8.0-16.0 [facility] ([facility]) Sgot/Ast 29 U/L 5-40 [facility] ([facility]) SGPT/Alt 36 U/L 7-56 [facility] ([facility]) Non-Aa GFR Laboratory test result [facility] ([facility]) Afr Amer GFR Laboratory test result [facility] ([facility]) Male GFR Interprentation 20-49 yrs >60 mL/min [...] >32 mL/min Normal Age 50 yrs [facility] ([facility]) ID Date Data Source [id number] 08/27/2020 08:32:00 AM EDT [facility] ([facility]) Name Value Range Interpretation Code Description Data Valentina rce(s) Supporting Document(s) Ferritin [Mass/volume] in Serum or Plasma 870.9 ng/mL 5.0-244 Above high normal [facility] ([facility]) ID Date Data Source [id number] 08/27/2020 08:32:00 AM EDT [facility] ([facility]) Name Value Range Interpretation Code Description Data Valentina rce(s) Supporting Document(s) CBC W/Automated Diff Laboratory test result [facility] ([facility]) COMPLETE BLOOD COUNT RBC 4.68 10^6/uL 4.50-6.30 [facility] ([facility]) Hemoglobin 15.0 g/dL 14.0-16.0 [facility] ([facility]) WBC 2.2 10^3/uL 4.2-11.0 Below low normal [facility] ([facility]) MCHC 34.4 g/dL 31.0-36.0 [facility] ([facility]) MCH 32.1 pg 27.0-34.0 [facility] ([facility]) MCV 93.2 fL 80.0-94.0 [facility] ([facility]) Hematocrit 43.6 % 41.0-51.0 [facility] ([facility]) RDW 13.0 % 11.5-14.8 [facility] ([facility]) MPV 9.4 fL 7.4-10.4 [facility] ([facility]) Platelets 117 10^3/uL 150-450 Below low normal [facility] ([facility]) Lymph 37.2 % 25.0-40.0 [facility] ([facility]) Neut 41.9 % 37.0-80.0 [facility] ([facility]) [place] 18.1 % 3.0-8.0 Above high normal [facility] ([facility]) %Ig 0.0 % 0.0-0.0 [facility] ([facility]) Baso 0.5 % 0.0-2.0 [facility] ([facility]) Eos 2.3 % 0.0-7.0 [facility] ([facility]) %NRBC 0.0 % 0.0-0.0 [facility] ([facility]) #Lymph 0.80 10^3/uL 0.60-3.40 [facility] ([facility]) #Neut 0.90 10^3/uL 2.00-6.90 Below low normal [facility] ([facility]) #Eos 0.05 10^3/uL 0.00-0.70 [facility] ([facility]) #Baso 0.01 10^3/uL 0.00-0.20 [facility] ([facility]) #[place] 0.39 10^3/uL 0.00-0.90 [facility] ([facility]) #NRBC 0.00 10^3/uL 0.00-0.00 [facility] ([facility]) Manual Diff Laboratory test result M [facility] ([facility]) #Ig 0.00 10^3/uL 0.00-0.10 [facility] ([facility]) Segs 49 % 37-80 [facility] ([facility]) %[place] 10 % 3-8 Above high normal [facility] ([facility]) %Eos 1 % 0-7 [facility] ([facility]) %Lymph 40 % 25-40 [facility] ([facility]) RBC Morph Laboratory test result [facility] ([facility]) { SICKLE CELL (NORMAL: NONE SEEN ) PLT Est Laboratory test result Abnormal (applies to non -numeric results) [facility] ([facility]) COMMENT: ID Date Data Source [id number] 08/27/2020 09:45:[address] [facility] Name Value Range Interpretation Code Description Data Valentina rce(s) Supporting Document(s) CBC W/AUTOMATED DIFF [facility] COMPLETE BLOOD COUNT Leukocytes [#/volume] in Blood by Automated count 2.2 10^3/uL 4.2 - [address] [facility] Erythrocytes [#/volume] in Blood by Automated count 4.68 10^6/uL 4. 50 - 6.30 [facility] Hemoglobin [Mass/volume] in Blood 15.0 g/dL 14.0 - 16.0 [facility] Hematocrit [Volume Fraction] of Blood by Automated count 43.6 % 4 1.0 - 51.0 [facility] Erythrocyte mean corpuscular volume [Entitic volume] by Auto mated count 93.2 fL 80.0 - 94.0 [facility] Erythrocyte mean corpuscular hemoglobin [Entitic mass] by Automated count 32.1 pg 27.0 - 34.0 [facility] Erythrocyte mean corpuscular hemoglobin concentration [Mass/volume] by Automated count 34.4 g/dL 31.0 - 36.0 [facility] Erythrocyte distribution width [Ratio] by Automated count 13.0 % 11.5 - 14.8 [facility] Platelets [#/volume] in Blood by Automated count 117 10^3/uL 150 - [address] [facility] Platelet mean volume [Entitic volume] in Blood by Automated count 9.4 fL 7.4 - 10.4 [facility] Neutrophils/100 leukocytes in Blood by Automated count 41.9 % 37. 0 - 80.0 [facility] Lymphocytes/100 leukocytes in Blood by Manual count 37.2 % 25.0 - 40.0 [facility] Monocytes/100 leukocytes in Blood by Automated count 18.1 % 3.0 - 8.[address] [facility] Eosinophils/100 leukocytes in Blood by Automated count 2.3 % 0.0 - 7.0 [facility] Basophils/100 leukocytes in Blood by Automated count 0.5 % 0.0 - 2.0 [facility] %IG 0.0 % 0.0 - 0.0 [facility] %NRBC 0.0 % 0.0 - 0.0 [facility] al Neutrophils [#/volume] in Blood by Automated count 0.90 10^3/uL 2.00 - 6.[address] [facility] Lymphocytes [#/volume] in Blood by Automated count 0.80 10^3/uL 0.60 - 3.40 [facility] Monocytes [#/volume] in Blood by Automated count 0.39 10^3/uL 0.00 - 0.90 [facility] Eosinophils [#/volume] in Blood by Automated count 0.05 10^3/uL 0.00 - 0.70 [facility] Basophils [#/volume] in Blood by Automated count 0.01 10^3/uL 0.00 - 0.20 [facility] #IG 0.00 10^3/uL 0.00 - 0.10 [facility] #NRBC 0.00 10^3/uL 0.00 - 0.00 [facility] MANUAL DIFF SEE BELOW [facility] Segmented neutrophils/100 leukocytes in Blood by Manual count 49 % 37 - 80 [facility] %LYMPH 40 % 25 - 40 [facility] %MONO 10 % 3 - 8 H [facility] %EOS 1 % 0 - 7 [facility] RBC MORPH SEE BELOW [facility] { SICKLE CELL (NORMAL: NONE SEEN ) Platelet adequacy [Presence] in Blood by Light microscopy DE CREASED NORMAL: NORMAL A [facility] COMMENT: ID Date Data Source [id number] 08/27/2020 09:39:[address] [facility] Name Value Range Interpretation Code Description Data Valentina rce(s) Supporting Document(s) Ferritin [Mass/volume] in Serum or Plasma 870.9 ng/mL 5.0 - [address] [facility] ID Date Data Source [id number] 08/27/2020 09:28:[address] [facility] Name Value Range Interpretation Code Description Data Valentina rce(s) Supporting Document(s) Iron [Mass/volume] in Serum or Plasma 103 UG/DL 42 - 135 [facility] Iron binding capacity.unsaturated [Mass/volume] in Serum or Plasma 84 UG/DL 112 - [address] [facility] Iron binding capacity [Mass/volume] in Serum or Plasma 187 ug/dL 250 - [address] [facility] Iron saturation [Mass Fraction] in Serum or Plasma 55 % [facility] ID Date Data Source [id number] 08/27/2020 09:28:[address] [facility] Name Value Range Interpretation Code Description Data Valentina e(s) Supporting Document(s) COMPREHENSIVE METABOLIC PANEL [facility] COMPREHENSIVE METABOLIC PANEL Sodium [Moles/volume] in Serum or Plasma 134 mEq/L 134 - 153 [facility] Potassium [Moles/volume] in Serum or Plasma 3.8 mEq/L 3.6 - 5.0 [facility] Chloride [Moles/volume] in Serum or Plasma 100 mEq/L 98 - 107 [facility] Carbon dioxide, total [Moles/volume] in Serum or Plasma 25 MEQ/L 22 - 30 [facility] Glucose [Mass/volume] in Serum or Plasma 325 MG/DL 65 - [address] [facility] BUN 7 MG/DL 7 - 21 [facility] Creatinine [Mass/volume] in Serum or Plasma 0.5 MG/DL 0.7 - 1.[address] [facility] BUN/CREAT 14 8 - 27 [facility] [facility] Protein [Mass/volume] in Serum or Plasma 7.9 G/DL 6.3 - 8.2 [facility] Albumin [Mass/volume] in Serum or Plasma 3.7 G/DL 3.9 - 5.[address] [facility] Globulin [Mass/volume] in Serum by calculation 4.2 GM/DL 2.4 - 3.[address] [facility] A/G RATIO 0.9 0.8 - 2.0 [facility] Calcium [Mass/volume] in Serum or Plasma 8.9 MG/DL 8.4 - 10.2 [facility] Bilirubin.total [Mass/volume] in Serum or Plasma 0.9 MG/DL 0.2 - 1.3 [facility] Alkaline phosphatase [Enzymatic activity/volume] in Serum or Plasma 87 U/L 38 - 126 [facility] Aspartate aminotransferase [Enzymatic activity/volume] in Serum or Plasma 29 U/L 5 - 40 [facility] Alanine aminotransferase [Enzymatic activity/volume] in Seru m or Plasma 36 U/L 7 - 56 [facility] Anion gap 3 in Serum or Plasma 9.0 mmol/L 8.0 - 16.0 [facility] AGE 50 yrs [facility] al NON-AA GFR >60 mL/min [facility] ital AFR AMER GFR >60 mL/min [facility] Male GFR In terprentation 20-49 [...] >32 mL/min Normal ID Date Data Source [id number] 08/27/2020 08:53:[address] [facility] Name Value Range Interpretation Code Description Data Valentina rce(s) Supporting Document(s) Prothrombin time (PT) 13.6 SECONDS 11.0 - 15.5 [facility] INR in Platelet poor plasma by Coagulation assay 1.03 0.93 - 1. 23 [facility] aPTT in Blood by Coagulation assay 29.2 SECONDS 24.8 - 36.7 [facility] \\BLDo\\INR INTERPRETATION\\BLDx\\ Therapeutic range for Coumadin and related oral anticoagulants. - International Normalized Ratio (INR): 2.0 - 3.0 for Venous Thrombosis, Pulmonary Embolus, Tissue heart valves, Acute UT Atrial Fibrillation, Valvular heart disease and recurrent Systemic Embolism. - International Normalized Ratio (INR): 2.5 - 3.5 for Mechanical Prosthetic valve. ID Date Data Source [id number] 07/17/2020 09:15:00 AM EDT [facility] ([facility]) Name Value Range Interpretation Code Description Data Valentina rce(s) Supporting Document(s) Culture Wound Laboratory test result [facility] ([facility]) {SPECIMEN SOURCE : R CHEST ABCESS ID Date Data Source [id number] 07/21/2020 10:44:[address] [facility] Name Value Range Interpretation Code Description Data Valentina rce(s) Supporting Document(s) CULTURE WOUND [facility] _CULTURE WOUND_$$[id number]$$[id number]$$[id number]$$[id number]$$[id number]$$[id number] DATE/TIME: 07/21/2020 12:05Culture: CULTURE WOUND Status: FinalAerobic [...] on next page --Patient: DENISHA Gutierrez Order: [id number] Page 2Culture: CULTURE WOUND Status: Final ====Beta hemolytic Streptococcus, group A Previous result entered on 07/19/2020 05:40 ET Beta hemolytic Streptococcus, group ABeta hemolytic Streptococcus, group A Flag: AP1 Test performed by: Anastasiya VILLEGAS #: [id number] [address] [id number] [facility] [id number] Director : Jasiel Pedraza MD NPI #:Science Interpreter : 07/19/20.0829.XMT.SENT REF 07/20/20.2300.XMT.SENT REF 07/21/20.2243.XMT.SENT REF 07/21/20.2243.DW .to ANGIE via fax ID Date Data Source [id number] 06/27/2020 09:46:00 AM EDT [facility] [address] [place] [address] PHONE: [phone] FAX: [phone] Name .................. : DENISHA BERMUDEZ Matt Acct Number.................. : [id number] ROOM. ................. : Number ................... : [id number] Stay type ............. : CLINIC Discharge Date......... ... : 06/25/20 Admit Date ...... ... : 06/25/20 Admit Phys .................... : INGRAMELIS Date of ....... : 1970 Family Phys ................... : CLARK HARD Phone .................. : [phone] Age ................................ : 50 Film# .................. .:[id number] Sex ................................. : M Unsigned transcriptions are preliminary reports and do not represent a medical or legal document CT ABD & PELV W/ORAL/IV CONTR [id number] COMPLETE:06/25/20 13:30 LANA 57237 (REASON FOR ABDOMEN: ABD PAIN CT OF [...] dose: 2332.2 mGycm Page 1 of [address] [place] [address] PHONE: [phone] FAX: [phone] Name .................. : DENISHA Gutierrez Acct Number.................. : [id number] ROOM. ................. : Number ................... : [id number] Stay type ............. : CLINIC Discharge Date......... ... : 06/25/20 Admit Date ......... : 06/25/20 Admit Phys .................... : INGRAMELIS Date of ....... : 1970 Family Phys ................... : CLARK HARD Phone .................. : [phone] Age ................................ : 50 Film# .................. .:[id number] Sex ................................. : M Unsigned transcriptions are preliminary reports and do not represent a medical or legal document CT ABD & PELV W/ORAL/IV CONTR [id number] COMPLETE:06/25/20 13:30 LANA 16000 (REASON FOR ABDOMEN: ABD PAIN Contrast agent in mL: 75 Isovue 370 Method of administration: Intravenous Electronically Reviewed and Signed By Ramesh Mcclelland MD , 06/27/20 09:46, DINA Transcribe Initials: DZ , Transcribe Date: 06/26/20 00:58, Dictation Date: Page 2 of 2 Name Value Range Interpretation Code Description Data Valentina rce(s) Supporting Document(s) ID Date Data Source [id number] 06/25/2020 07:59:00 AM EDT [facility] ([facility]) Name Value Range Interpretation Code Description Data Valentina rce(s) Supporting Document(s) CT Abd & Pelv W/Oral/IV Contrast [facility] ID Date Data Source [id number] 06/25/2020 07:53:00 AM EDT [facility] ([facility]) Name Value Range Interpretation Code Description Data Valentina rce(s) Supporting Document(s) Amylase [Enzymatic activity/volume] in Serum or Plasma 92 U/L 30- 110 [facility] ([facility]) FASTING 8 HOUR~.~.~<DG1.3.1>R10.84</DG1.3.1><DG1.3.1>R10.84</DG1.3.1><DG1.3.1>R10.84</DG1. 3.1><DG Lipase [Enzymatic activity/volume] in Serum or Plasma 63 U/L 13-60 Above high normal [facility] ([facility]) FASTING 8 HOUR~.~.~<DG1.3.1>R10.84</DG1.3.1><DG1.3.1>R10.84</DG1.3.1><DG1.3.1>R10.84</DG1. 3.1><DG Calcidiol [Mass/volume] in Serum or Plasma 19 ng/mL [facility] ([facility]) FASTING 8 HOUR~.~.~<DG1.3.1>R10.84</DG1.3.1><DG1.3.1>R10.84</DG1.3.1><DG1.3.1>R10.84</DG1. 3.1><DG ID Date Data Source [id number] 06/25/2020 07:53:00 AM EDT [facility] ([facility]) Name Value Range Interpretation Code Description Data Valentina rce(s) Supporting Document(s) Cve Panel Laboratory test result [facility] ([facility]) FASTING 8 HOUR~.~.~<DG1.3.1>R10.84</DG1.3.1><DG1.3.1>R10.84</DG1.3.1><DG1.3.1>R10.84</DG1. 3.1><DG HDL 49 mg/dL 29-86 [facility] ([facility]) FASTING 8 HOUR~.~.~<DG1.3.1>R10.84</DG1.3.1><DG1.3.1>R10.84</DG1.3.1><DG1.3.1>R10.84</DG1. 3.1><DG Cholesterol 131 mg/dL 131-200 [facility] ([facility]) FASTING 8 HOUR~.~.~<DG1.3.1>R10.84</DG1.3.1><DG1.3.1>R10.84</DG1.3.1><DG1.3.1>R10.84</DG1. 3.1><DG Triglycerides 138 mg/dL 35-160 [facility] ([facility]) FASTING 8 HOUR~.~.~<DG1.3.1>R10.84</DG1.3.1><DG1.3.1>R10.84</DG1.3.1><DG1.3.1>R10.84</DG1. 3.1><DG LDL/HDL 1.24 1.00-3.55 [facility] ([facility]) FASTING 8 HOUR~.~.~<DG1.3.1>R10.84</DG1.3.1><DG1.3.1>R10.84</DG1.3.1><DG1.3.1>R10.84</DG1. 3.1><DG Risk Factor 2.7 3.4-4.9 Below low normal [facility] ([facility]) FASTING 8 HOUR~.~.~<DG1.3.1>R10.84</DG1.3.1><DG1.3.1>R10.84</DG1.3.1><DG1.3.1>R10.84</DG1. 3.1><DG LDL 61 mg/dL 65-175 Below low normal [facility] ([facility]) FASTING 8 HOUR~.~.~<DG1.3.1>R10.84</DG1.3.1><DG1.3.1>R10.84</DG1.3.1><DG1.3.1>R10.84</DG1. 3.1><DG ID Date Data Source [id number] 06/25/2020 07:53:00 AM EDT [facility] ([facility]) Name Value Range Interpretation Code Description Data Valentina rce(s) Supporting Document(s) Hemoglobin A1c/Hemoglobin.total in Blood 8.2 % 4.4-6.1 Above high normal [facility] ([facility]) FASTING 8 HOUR~.~.~<DG1.3.1>R10.84</DG1.3.1><DG1.3.1>R10.84</DG1.3.1><DG1.3.1>R10.84</DG1. 3.1><DG Thyrotropin [Units/volume] in Serum or Plasma 2.06 uIU/mL 0.47-5.01 [facility] ([facility]) FASTING 8 HOUR~.~.~<DG1.3.1>R10.84</DG1.3.1><DG1.3.1>R10.84</DG1.3.1><DG1.3.1>R10.84</DG1. 3.1><DG ID Date Data Source [id number] 06/25/2020 07:53:00 AM EDT [facility] ([facility]) Name Value Range Interpretation Code Description Data Valentina rce(s) Supporting Document(s) Comprehensive Metabo Laboratory test result [facility] ([facility]) FASTING 8 HOUR~.~.~<DG1.3.1>R10.84</DG1.3.1><DG1.3.1>R10.84</DG1.3.1><DG1.3.1>R10.84</DG1. 3.1><DG Chloride 103 meq/L 98-107 [facility] ([facility]) FASTING 8 HOUR~.~.~<DG1.3.1>R10.84</DG1.3.1><DG1.3.1>R10.84</DG1.3.1><DG1.3.1>R10.84</DG1. 3.1><DG Sodium 137 meq/L 134-153 [facility] ([facility]) FASTING 8 HOUR~.~.~<DG1.3.1>R10.84</DG1.3.1><DG1.3.1>R10.84</DG1.3.1><DG1.3.1>R10.84</DG1. 3.1><DG Potassium 3.7 meq/L 3.6-5.0 [facility] ([facility]) FASTING 8 HOUR~.~.~<DG1.3.1>R10.84</DG1.3.1><DG1.3.1>R10.84</DG1.3.1><DG1.3.1>R10.84</DG1. 3.1><DG Glucose 164 mg/dL 65-110 Above high normal [facility] ([facility]) FASTING 8 HOUR~.~.~<DG1.3.1>R10.84</DG1.3.1><DG1.3.1>R10.84</DG1.3.1><DG1.3.1>R10.84</DG1. 3.1><DG Co2 26 meq/L 22-30 [facility] ([facility]) FASTING 8 HOUR~.~.~<DG1.3.1>R10.84</DG1.3.1><DG1.3.1>R10.84</DG1.3.1><DG1.3.1>R10.84</DG1. 3.1><DG BUN 7 mg/dL 7-21 [facility] ([facility]) FASTING 8 HOUR~.~.~<DG1.3.1>R10.84</DG1.3.1><DG1.3.1>R10.84</DG1.3.1><DG1.3.1>R10.84</DG1. 3.1><DG Creatinine 0.6 mg/dL 0.7-1.5 Below low normal [facility] ( [facility]) FASTING 8 HOUR~.~.~<DG1.3.1>R10.84</DG1.3.1><DG1.3.1>R10.84</DG1.3.1><DG1.3.1>R10.84</DG1. 3.1><DG Total Protein 7.8 g/dL 6.3-8.2 [facility] ([facility]) FASTING 8 HOUR~.~.~<DG1.3.1>R10.84</DG1.3.1><DG1.3.1>R10.84</DG1.3.1><DG1.3.1>R10.84</DG1. 3.1><DG BUN/Creat 12 8-27 [facility] ([facility]) FASTING 8 HOUR~.~.~<DG1.3.1>R10.84</DG1.3.1><DG1.3.1>R10.84</DG1.3.1><DG1.3.1>R10.84</DG1. 3.1><DG Globulin 3.7 GM/DL 2.4-3.2 Above high normal [facility] ([facility]) FASTING 8 HOUR~.~.~<DG1.3.1>R10.84</DG1.3.1><DG1.3.1>R10.84</DG1.3.1><DG1.3.1>R10.84</DG1. 3.1><DG A/G Ratio 1.1 0.8-2.0 [facility] ([facility]) FASTING 8 HOUR~.~.~<DG1.3.1>R10.84</DG1.3.1><DG1.3.1>R10.84</DG1.3.1><DG1.3.1>R10.84</DG1. 3.1><DG Albumin 4.1 g/dL 3.9-5.0 [facility] ([facility]) FASTING 8 HOUR~.~.~<DG1.3.1>R10.84</DG1.3.1><DG1.3.1>R10.84</DG1.3.1><DG1.3.1>R10.84</DG1. 3.1><DG Calcium 8.8 mg/dL 8.4-10.2 [facility] ([facility]) FASTING 8 HOUR~.~.~<DG1.3.1>R10.84</DG1.3.1><DG1.3.1>R10.84</DG1.3.1><DG1.3.1>R10.84</DG1. 3.1><DG Total Bili 0.9 mg/dL 0.2-1.3 [facility] ([facility]) FASTING 8 HOUR~.~.~<DG1.3.1>R10.84</DG1.3.1><DG1.3.1>R10.84</DG1.3.1><DG1.3.1>R10.84</DG1. 3.1><DG Alkaline Phos 78 U/L 38-126 [facility] ([facility]) FASTING 8 HOUR~.~.~<DG1.3.1>R10.84</DG1.3.1><DG1.3.1>R10.84</DG1.3.1><DG1.3.1>R10.84</DG1. 3.1><DG SGPT/Alt 37 U/L 7-56 [facility] ([facility]) FASTING 8 HOUR~.~.~<DG1.3.1>R10.84</DG1.3.1><DG1.3.1>R10.84</DG1.3.1><DG1.3.1>R10.84</DG1. 3.1><DG Sgot/Ast 30 U/L 5-40 [facility] ([facility]) FASTING 8 HOUR~.~.~<DG1.3.1>R10.84</DG1.3.1><DG1.3.1>R10.84</DG1.3.1><DG1.3.1>R10.84</DG1. 3.1><DG Anion Gap 8.0 mmol/L 8.0-16.0 [facility] ([facility]) FASTING 8 HOUR~.~.~<DG1.3.1>R10.84</DG1.3.1><DG1.3.1>R10.84</DG1.3.1><DG1.3.1>R10.84</DG1. 3.1><DG Age 50 yrs [facility] ([facility]) FASTING 8 HOUR~.~.~<DG1.3.1>R10.84</DG1.3.1><DG1.3.1>R10.84</DG1.3.1><DG1.3.1>R10.84</DG1. 3.1><DG Non-Aa GFR [facility] FASTING 8 HOUR~.~.~<DG1.3.1>R10.84</DG1.3.1><DG1.3.1>R10.84</DG1.3.1><DG1.3.1>R10.84</DG1. 3.1><DG Afr Amer GFR Laboratory test result [facility]) FASTING 8 HOUR~.~.~<DG1.3.1>R10.84</DG1.3.1><DG1.3.1>R10.84</DG1.3.1><DG1.3.1>R10.84</DG1. 3.1><DG ID Date Data Source [id number] 06/25/2020 07:53:00 AM EDT [facility] ([facility]) Name Value Range Interpretation Code Description Data Valentina rce(s) Supporting Document(s) CBC W/Automated Diff Laboratory test result [facility]) FASTING 8 HOUR~.~.~<DG1.3.1>R10.84</DG1.3.1><DG1.3.1>R10.84</DG1.3.1><DG1.3.1>R10.84</DG1. 3.1><DG RBC 4.93 10^6/uL 4.50-6.30 [facility] ([facility]) FASTING 8 HOUR~.~.~<DG1.3.1>R10.84</DG1.3.1><DG1.3.1>R10.84</DG1.3.1><DG1.3.1>R10.84</DG1. 3.1><DG WBC 1.9 10^3/uL 4.2-11.0 Below low normal [facility] ([facility]) FASTING 8 HOUR~.~.~<DG1.3.1>R10.84</DG1.3.1><DG1.3.1>R10.84</DG1.3.1><DG1.3.1>R10.84</DG1. 3.1><DG Hemoglobin 15.7 g/dL 14.0-16.0 [facility] ([facility]) FASTING 8 HOUR~.~.~<DG1.3.1>R10.84</DG1.3.1><DG1.3.1>R10.84</DG1.3.1><DG1.3.1>R10.84</DG1. 3.1><DG Hematocrit 46.0 % 41.0-51.0 [facility] ([facility]) FASTING 8 HOUR~.~.~<DG1.3.1>R10.84</DG1.3.1><DG1.3.1>R10.84</DG1.3.1><DG1.3.1>R10.84</DG1. 3.1><DG MCHC 34.1 g/dL 31.0-36.0 [facility] ([facility]) FASTING 8 HOUR~.~.~<DG1.3.1>R10.84</DG1.3.1><DG1.3.1>R10.84</DG1.3.1><DG1.3.1>R10.84</DG1. 3.1><DG MCV 93.3 fL 80.0-94.0 [facility] ([facility]) FASTING 8 HOUR~.~.~<DG1.3.1>R10.84</DG1.3.1><DG1.3.1>R10.84</DG1.3.1><DG1.3.1>R10.84</DG1. 3.1><DG MCH 31.8 pg 27.0-34.0 [facility] ([facility]) FASTING 8 HOUR~.~.~<DG1.3.1>R10.84</DG1.3.1><DG1.3.1>R10.84</DG1.3.1><DG1.3.1>R10.84</DG1. 3.1><DG RDW 14.1 % 11.5-14.8 [facility] ([facility]) FASTING 8 HOUR~.~.~<DG1.3.1>R10.84</DG1.3.1><DG1.3.1>R10.84</DG1.3.1><DG1.3.1>R10.84</DG1. 3.1><DG Platelets 114 10^3/uL 150-450 Below low normal [facility] ([facility]) FASTING 8 HOUR~.~.~<DG1.3.1>R10.84</DG1.3.1><DG1.3.1>R10.84</DG1.3.1><DG1.3.1>R10.84</DG1. 3.1><DG MPV 9.7 fL 7.4-10.4 [facility] ([facility]) FASTING 8 HOUR~.~.~<DG1.3.1>R10.84</DG1.3.1><DG1.3.1>R10.84</DG1.3.1><DG1.3.1>R10.84</DG1. 3.1><DG Lymph 41.9 % 25.0-40.0 Above high normal [facility] ([facility]) FASTING 8 HOUR~.~.~<DG1.3.1>R10.84</DG1.3.1><DG1.3.1>R10.84</DG1.3.1><DG1.3.1>R10.84</DG1. 3.1><DG Neut 31.3 % 37.0-80.0 Below low normal [facility] ( [facility]) FASTING 8 HOUR~.~.~<DG1.3.1>R10.84</DG1.3.1><DG1.3.1>R10.84</DG1.3.1><DG1.3.1>R10.84</DG1. 3.1><DG [place] 23.1 % 3.0-8.0 Above high normal [facility] ([facility]) FASTING 8 HOUR~.~.~<DG1.3.1>R10.84</DG1.3.1><DG1.3.1>R10.84</DG1.3.1><DG1.3.1>R10.84</DG1. 3.1><DG Baso 0.5 % 0.0-2.0 [facility] ([facility]) FASTING 8 HOUR~.~.~<DG1.3.1>R10.84</DG1.3.1><DG1.3.1>R10.84</DG1.3.1><DG1.3.1>R10.84</DG1. 3.1><DG Eos 3.2 % 0.0-7.0 [facility] ([facility]) FASTING 8 HOUR~.~.~<DG1.3.1>R10.84</DG1.3.1><DG1.3.1>R10.84</DG1.3.1><DG1.3.1>R10.84</DG1. 3.1><DG %NRBC 0.0 % 0.0-0.0 [facility] ([facility]) FASTING 8 HOUR~.~.~<DG1.3.1>R10.84</DG1.3.1><DG1.3.1>R10.84</DG1.3.1><DG1.3.1>R10.84</DG1. 3.1><DG #Neut 0.58 10^3/uL 2.00-6.90 Below low normal [facility] ([facility]) FASTING 8 HOUR~.~.~<DG1.3.1>R10.84</DG1.3.1><DG1.3.1>R10.84</DG1.3.1><DG1.3.1>R10.84</DG1. 3.1><DG %Ig 0.0 % 0.0-0.0 [facility] ([facility]) FASTING 8 HOUR~.~.~<DG1.3.1>R10.84</DG1.3.1><DG1.3.1>R10.84</DG1.3.1><DG1.3.1>R10.84</DG1. 3.1><DG #[place] 0.43 10^3/uL 0.00-0.90 [facility] ([facility]) FASTING 8 HOUR~.~.~<DG1.3.1>R10.84</DG1.3.1><DG1.3.1>R10.84</DG1.3.1><DG1.3.1>R10.84</DG1. 3.1><DG #Lymph 0.78 10^3/uL 0.60-3.40 [facility] ([facility]) FASTING 8 HOUR~.~.~<DG1.3.1>R10.84</DG1.3.1><DG1.3.1>R10.84</DG1.3.1><DG1.3.1>R10.84</DG1. 3.1><DG #Baso 0.01 10^3/uL 0.00-0.20 [facility] ([facility]) FASTING 8 HOUR~.~.~<DG1.3.1>R10.84</DG1.3.1><DG1.3.1>R10.84</DG1.3.1><DG1.3.1>R10.84</DG1. 3.1><DG #Eos 0.06 10^3/uL 0.00-0.70 [facility] ([facility]) FASTING 8 HOUR~.~.~<DG1.3.1>R10.84</DG1.3.1><DG1.3.1>R10.84</DG1.3.1><DG1.3.1>R10.84</DG1. 3.1><DG #Ig 0.00 10^3/uL 0.00-0.10 [facility] ([facility]) FASTING 8 HOUR~.~.~<DG1.3.1>R10.84</DG1.3.1><DG1.3.1>R10.84</DG1.3.1><DG1.3.1>R10.84</DG1. 3.1><DG Manual Diff Laboratory test result [facility] ([facility]) FASTING 8 HOUR~.~.~<DG1.3.1>R10.84</DG1.3.1><DG1.3.1>R10.84</DG1.3.1><DG1.3.1>R10.84</DG1. 3.1><DG #NRBC 0.00 10^3/uL 0.00-0.00 [facility] ([facility]) FASTING 8 HOUR~.~.~<DG1.3.1>R10.84</DG1.3.1><DG1.3.1>R10.84</DG1.3.1><DG1.3.1>R10.84</DG1. 3.1><DG Band 1 % 0-5 [facility] ([facility]) FASTING 8 HOUR~.~.~<DG1.3.1>R10.84</DG1.3.1><DG1.3.1>R10.84</DG1.3.1><DG1.3.1>R10.84</DG1. 3.1><DG Segs 31 % 37-80 Below low normal [facility] ([facility]) FASTING 8 HOUR~.~.~<DG1.3.1>R10.84</DG1.3.1><DG1.3.1>R10.84</DG1.3.1><DG1.3.1>R10.84</DG1. 3.1><DG %Lymph 53 % 25-40 Above high normal [facility] ([facility]) FASTING 8 HOUR~.~.~<DG1.3.1>R10.84</DG1.3.1><DG1.3.1>R10.84</DG1.3.1><DG1.3.1>R10.84</DG1. 3.1><DG %Eos 1 % 0-7 [facility] ([facility]) FASTING 8 HOUR~.~.~<DG1.3.1>R10.84</DG1.3.1><DG1.3.1>R10.84</DG1.3.1><DG1.3.1>R10.84</DG1. 3.1><DG %[place] 14 % 3-8 Above high normal [facility] ([facility]) FASTING 8 HOUR~.~.~<DG1.3.1>R10.84</DG1.3.1><DG1.3.1>R10.84</DG1.3.1><DG1.3.1>R10.84</DG1. 3.1><DG RBC Morph Laboratory test result [facility] ([facility]) FASTING 8 HOUR~.~.~<DG1.3.1>R10.84</DG1.3.1><DG1.3.1>R10.84</DG1.3.1><DG1.3.1>R10.84</DG1. 3.1><DG PLT Est Laboratory test result Abnormal (applies to non -numeric results) [facility] ([facility]) FASTING 8 HOUR~.~.~<DG1.3.1>R10.84</DG1.3.1><DG1.3.1>R10.84</DG1.3.1><DG1.3.1>R10.84</DG1. 3.1><DG ID Date Data Source [id number] 06/25/2020 10:23:[address] [facility] Name Value Range Interpretation Code Description Data Valentina rce(s) Supporting Document(s) Thyrotropin [Units/volume] in Serum or Plasma by Detec tion limit <= 0.05 mIU/L 2.06 uIU/mL 0.47 - 5.01 [facility] ID Date Data Source [id number] 06/25/2020 10:23:[address] [facility] Name Value Range Interpretation Code Description Data Valentina rce(s) Supporting Document(s) Calcidiol [Moles/volume] in Serum or Plasma 19 NG/ML [facility] VITAMIN-D(2 5HYDROXY) Deficiency: <=20 ng/ml Insufficiency: 21-29 ng/ml Preferred level: => 30 ng/ml ID Date Data Source [id number] 06/25/2020 10:15:[address] [facility] Name Value Range Interpretation Code Description Data Valentina rce(s) Supporting Document(s) CBC W/AUTOMATED DIFF [facility] COMPLETE BLOOD COUNT Leukocytes [#/volume] in Blood by Automated count 1.9 10^3/uL 4.2 - [address] [facility] Erythrocytes [#/volume] in Blood by Automated count 4.93 10^6/uL 4. 50 - 6.30 [facility] Hemoglobin [Mass/volume] in Blood 15.7 g/dL 14.0 - 16.0 [facility] Hematocrit [Volume Fraction] of Blood by Automated count 46.0 % 4 1.0 - 51.0 [facility] Erythrocyte mean corpuscular volume [Entitic volume] by Auto mated count 93.3 fL 80.0 - 94.0 [facility] Erythrocyte mean corpuscular hemoglobin [Entitic mass] by Automated count 31.8 pg 27.0 - 34.0 [facility] Erythrocyte mean corpuscular hemoglobin concentration [Mass/volume] by Automated count 34.1 g/dL 31.0 - 36.0 [facility] Erythrocyte distribution width [Ratio] by Automated count 14.1 % 11.5 - 14.8 [facility] Platelets [#/volume] in Blood by Automated count 114 10^3/uL 150 - [address] [facility] Platelet mean volume [Entitic volume] in Blood by Automated count 9.7 fL 7.4 - 10.4 [facility] Neutrophils/100 leukocytes in Blood by Automated count 31.3 % 37. 0 - 80.[address] [facility] Lymphocytes/100 leukocytes in Blood by Manual count 41.9 % 25.0 - 40.[address] [facility] Monocytes/100 leukocytes in Blood by Automated count 23.1 % 3.0 - 8.[address] [facility] Eosinophils/100 leukocytes in Blood by Automated count 3.2 % 0.0 - 7.0 [facility] Basophils/100 leukocytes in Blood by Automated count 0.5 % 0.0 - 2.0 [facility] %[facility] 0.0 % [facility].0 [facility] 0.0 % 0.0 - 0.0 [facility] al Neutrophils [#/volume] in Blood by Automated count 0.58 10^3/uL 2.00 - 6.[address] [facility] Lymphocytes [#/volume] in Blood by Automated count 0.78 10^3/uL 0.60 - 3.40 [facility] Monocytes [#/volume] in Blood by Automated count 0.43 10^3/uL 0.00 - 0.90 [facility] Eosinophils [#/volume] in Blood by Automated count 0.06 10^3/uL 0.00 - 0.70 [facility] Basophils [#/volume] in Blood by Automated count 0.01 10^3/uL 0.00 - 0.20 [facility] #IG 0.00 10^3/uL 0.00 - 0.10 [facility] #NRBC 0.00 10^3/uL 0.00 - 0.00 [facility] MANUAL DIFF SEE BELOW [facility] Segmented neutrophils/100 leukocytes in Blood by Manual count 31 % 37 - [address] [facility] BAND 1 % 0 - 5 [facility] %LYMPH 53 % 25 - 40 [facility] %MONO 14 % 3 - 8 [facility] %EOS 1 % 0 - 7 [facility] RBC MORPH SEE BELOW [facility] { SICKLE CELL (NORMAL: NONE SEEN ) Platelet adequacy [Presence] in Blood by Light microscopy DE CREASED NORMAL: NORMAL A [facility] COMMENT: ID Date Data Source [id number] 06/25/2020 10:03:[address] [facility] Name Value Range Interpretation Code Description Data Valentina rce(s) Supporting Document(s) Lipase [Enzymatic activity/volume] in Serum or Plasma 63 U/L 13 - [address] [facility] ID Date Data Source [id number] 06/25/2020 10:03:[address] [facility] Name Value Range Interpretation Code Description Data Valentina rce(s) Supporting Document(s) CVE PANEL [facility] al LIPID PANEL Cholesterol [Mass/volume] in Serum or Plasma 131 MG/DL 131 - 200 [facility] Deprecated Triglyceride [Mass/volume] in Serum or Plasma 138 MG/DL 3 5 - 160 [facility] HDL 49 MG/DL 29 - 86 [facility] al Cholesterol in LDL [Mass/volume] in Serum or Plasma by Direc t assay 61 mg/dL 65 - [address] [facility] Cholesterol.total/Cholesterol in HDL [Mass Ratio] in Serum o r Plasma 2.7 3.4 - 4.[address] [facility] LDL/HDL 1.24 1.00 - 3.55 [facility] ital CVE RISK CHOL/HDL LDL/HDLMEN: 1/2 AVERAGE 3.43 1.00 AVERAGE 4.97 3.55 2X AVERAGE 9.55 6.25 3X AVERAGE 23.99 7.99WOMEN: 1/2 AVERAGE 3.27 1.47 AVERAGE 4.44 3.22 2X AVERAGE 7.05 5.03 3X AVERAGE 11.04 6.14 ID Date Data Source [id number] 06/25/2020 10:03:[address] [facility] Name Value Range Interpretation Code Description Data Valentina rce(s) Supporting Document(s) COMPREHENSIVE METABOLIC PANEL [facility] COMPREHENSIVE METABOLIC PANEL Sodium [Moles/volume] in Serum or Plasma 137 mEq/L 134 - 153 [facility] Potassium [Moles/volume] in Serum or Plasma 3.7 mEq/L 3.6 - 5.0 [facility] Chloride [Moles/volume] in Serum or Plasma 103 mEq/L 98 - 107 [facility] Carbon dioxide, total [Moles/volume] in Serum or Plasma 26 MEQ/L 22 - 30 [facility] Glucose [Mass/volume] in Serum or Plasma 164 MG/DL 65 - [address] [facility] BUN 7 MG/DL 7 - 21 [facility] al Creatinine [Mass/volume] in Serum or Plasma 0.6 MG/DL 0.7 - 1.[address] [facility] BUN/CREAT 12 8 - 27 [facility] al Protein [Mass/volume] in Serum or Plasma 7.8 G/DL 6.3 - 8.2 [facility] Albumin [Mass/volume] in Serum or Plasma 4.1 G/DL 3.9 - 5.0 [facility] Globulin [Mass/volume] in Serum by calculation 3.7 GM/DL 2.4 - 3.[address] [facility] A/G RATIO 1.1 0.8 - 2.0 [facility] Calcium [Mass/volume] in Serum or Plasma 8.8 MG/DL 8.4 - 10.2 [facility] Bilirubin.total [Mass/volume] in Serum or Plasma 0.9 MG/DL 0.2 - 1.3 [facility] Alkaline phosphatase [Enzymatic activity/volume] in Serum or Plasma 78 U/L 38 - 126 [facility] Aspartate aminotransferase [Enzymatic activity/volume] in Serum or Plasma 30 U/L 5 - 40 [facility] Alanine aminotransferase [Enzymatic activity/volume] in Seru m or Plasma 37 U/L 7 - 56 [facility] Anion gap 3 in Serum or Plasma 8.0 mmol/L 8.0 - 16.0 [facility] AGE 50 yrs [facility] al NON-AA GFR >60 mL/min [facility] ital AFR AMER GFR >60 mL/min [facility] Male GFR In terprentation 20-49 [...] >32 mL/min Normal ID Date Data Source [id number] 06/25/2020 10:03:[address] [facility] Name Value Range Interpretation Code Description Data Valentina rce(s) Supporting Document(s) Amylase [Enzymatic activity/volume] in Serum or Plasma 92 U/L 30 - 110 [facility] ID Date Data Source [id number] 06/25/2020 09:59:[address] [facility] Name Value Range Interpretation Code Description Data Valentina rce(s) Supporting Document(s) Hemoglobin A1c/Hemoglobin.total in Blood 8.2 % 4.4 - 6.[address] [facility] {A1]{HB] Procedure Social History Code Duration Value Status Description Data Source(s ) Alcohol intake 11/18/2020 12:00:00 AM EST Ex-drinker (finding) comp leted Ex- drinker (finding) [facility] Tobacco use and exposure 11/18/2020 12:00:00 AM EST Current user co mpleted Current user [facility] Cigarette pack-years 11/18/2020 12:00:00 AM EST UNK completed [facility] Cigarettes smoked current (pack per day) - Reported 11/18/19 12:00:00 AM EST UNK completed [facility] Smoking 11/18/2020 12:00:00 AM EST Former smoker completed Former smoker [facility] Alcohol intake 10/28/2020 12:00:00 AM EST Not Currently completed [facility] Cigarette pack-years 10/28/2020 12:00:00 AM EST UNK completed [facility] Cigarettes smoked current (pack per day) - Reported 10/28/20 12:00:00 AM EST UNK completed [facility] Smoking 10/28/2020 12:00:00 AM EST Former smoker completed Former smoker [facility] Alcohol intake 10/24/2020 12:00:00 AM EST Not Currently completed [facility] Cigarette pack-years 10/24/2020 12:00:00 AM EST UNK completed [facility] Cigarettes smoked current (pack per day) - Reported 10/24/20 12:00:00 AM EST UNK completed [facility] Smoking 10/24/2020 12:00:00 AM EST Former smoker completed Former smoker [facility] Vital Signs ID Date Data Source UNK Name Value Range Interpretation Code Description Data Source(s) Oxygen saturation in Arterial blood by Pulse oximetry 96 % 96 % [facility] ([facility]) Body temperature 97.7 [degF] 97.7 [degF] [facility] ([facility]) Heart rate 83 /min 83 /min [facility] ([facility]) Body surface area Derived from formula 2.46 m2 2.46 m2 [facility] ([facility]) Body mass index (BMI) [Ratio] 42.3 kg/m2 42.3 k g/m2 [facility] Body height 70 [in_i] 70 [in_i] [facility] ([facility]) 5'10" Body weight 133.869 kg 133.869 kg [facility] Body weight 295.12 [lb_av] 295.12 [lb_av] [facility] ([facility]) Oxygen saturation in Arterial blood by Pulse oximetry 96 % 96 % [facility] ([facility]) Respiratory rate 16 /min 16 /min [facility] ( [facility]) Body temperature 97.9 [degF] 97.9 [degF] [facility] ([facility]) Heart rate 101 /min 101 /min [facility] ([facility]) Diastolic blood pressure 82 mm[Hg] 82 mm[Hg] [facility] Systolic blood pressure 124 mm[Hg] 124 mm[Hg] M [facility] ([facility]) Oxygen saturation in Arterial blood by Pulse oximetry 93 % 93 % [facility] Heart rate 87 /min 87 /min [facility] Diastolic blood pressure 70 mm[Hg] 70 mm[Hg] [facility] Systolic blood pressure 119 mm[Hg] 119 mm[Hg] [facility] Respiratory rate 20 /min 20 /min [facility] Body temperature 36.83 Zakia 36.83 Zakia [facility] Body mass index (BMI) [Ratio] 45.32 kg/m2 45.32 kg/m2 [facility] Body weight 135.172 kg 135.172 kg [facility] Body height 172.7 cm 172.7 cm [facility] Oxygen saturation in Arterial blood by Pulse oximetry 94 % 94 % [facility] Body mass index (BMI) [Ratio] 45.98 kg/m2 45.98 kg/m2 [facility] Body weight 137.168 kg 137.168 kg [facility] Body height 172.7 cm 172.7 cm [facility] Heart rate 100 /min 100 /min [facility] Diastolic blood pressure 73 mm[Hg] 73 mm[Hg] [facility] Systolic blood pressure 134 mm[Hg] 134 mm[Hg] [facility] Body surface area Derived from formula 2.51 m2 2.51 m2 [facility] ([facility]) Body weight 136.080 kg 136.080 kg [facility] ([facility]) Shelley body weight 172 [lb_av] 172 [lb_av] [facility] ([facility]) Body mass index (BMI) [Ratio] 41.8 kg/m2 41.8 k g/m2 [facility] ([facility]) Body weight 300.00 [lb_av] 300.00 [lb_av] [facility] ([facility]) Body height 71 [in_i] 71 [in_i] [facility] ([facility]) 5'11" Diastolic blood pressure 82 mm[Hg] 82 mm[Hg] [facility] ([facility]) Systolic blood pressure 150 mm[Hg] 150 mm[Hg] [facility] ([facility]) Body surface area Derived from formula 2.47 m2 2.47 m2 [facility] ([facility]) Body mass index (BMI) [Ratio] 42.8 kg/m2 42.8 k g/m2 [facility] ([facility]) Body height 70 [in_i] 70 [in_i] [facility] ([facility]) 5'10" Body weight 135.286 kg 135.286 kg [facility] ([facility]) Body weight 298.25 [lb_av] 298.25 [lb_av] [facility] ([facility]) Oxygen saturation in Arterial blood by Pulse oximetry 97 % 97 % [facility] ([facility]) Respiratory rate 16 /min 16 /min [facility] ( [facility]) Body temperature 98.0 [degF] 98.0 [degF] [facility] ([facility]) Heart rate 107 /min 107 /min [facility] ([facility]) Diastolic blood pressure 78 mm[Hg] 78 mm[Hg] [facility] ([facility]) Systolic blood pressure 118 mm[Hg] 118 mm[Hg] [facility] ([facility]) Body surface area Derived from formula 2.54 m2 2.54 m2 [facility] ([facility]) Body mass index (BMI) [Ratio] 45.3 kg/m2 45.3 k g/m2 [facility] ([facility]) Body height 70 [in_i] 70 [in_i] [facility] ([facility]) 5'10" Body weight 143.338 kg 143.338 kg [facility] ([facility]) Body weight 316.00 [lb_av] 316.00 [lb_av] [facility] ([facility]) Respiratory rate 16 /min 16 /min [facility] ( [facility]) Body temperature 98.2 [degF] 98.2 [degF] [facility] Heart rate 88 /min 88 /min [facility] ([facility]) Diastolic blood pressure 78 mm[Hg] 78 mm[Hg] [facility] Systolic blood pressure 148 mm[Hg] 148 mm[Hg] [facility] ([facility]) Body surface area Derived from formula 2.54 m2 2.54 m2 [facility] ([facility]) Body mass index (BMI) [Ratio] 45.4 kg/m2 45.4 k g/m2 [facility] Body height 70 [in_i] 70 [in_i] [facility] ([facility]) 5'10" Body weight 143.508 kg 143.508 kg [facility] ([facility]) Body weight 316.38 [lb_av] 316.38 [lb_av] [facility] ([facility]) Oxygen saturation in Arterial blood by Pulse oximetry 95 % 95 % [facility] ([facility]) Respiratory rate 16 /min 16 /min [facility]) Body temperature 98.0 [degF] 98.0 [degF] [facility] ([facility]) Heart rate 97 /min 97 /min [facility]) Diastolic blood pressure 86 mm[Hg] 86 mm[Hg] [facility] Systolic blood pressure 138 mm[Hg] 138 mm[Hg] [facility] ([facility]) Body surface area Derived from formula 2.53 m2 2.53 m2 [facility] ([facility]) Body mass index (BMI) [Ratio] 45.0 kg/m2 45.0 k g/m2 [facility] ([facility]) Body height 70 [in_i] 70 [in_i] [facility] ([facility]) 5'10" Body weight 142.430 kg 142.430 kg [facility] ([facility]) Body weight 314.00 [lb_av] 314.00 [lb_av] [facility] ([facility]) Body temperature 97.6 [degF] 97.6 [degF] [facility] Heart rate 97 /min 97 /min [facility] ([facility]) Diastolic blood pressure 62 mm[Hg] 62 mm[Hg] [facility] ([facility]) Systolic blood pressure 120 mm[Hg] 120 mm[Hg] [facility] ([facility]) Body surface area 2.53 m2 2.53 m2 [facility] ([facility]) Body surface area 2.56 m2 2.56 m2 [facility] ([facility]) Body mass index (BMI) [Ratio] 46.2 kg/m2 46.2 k g/m2 [facility] ([facility]) Body height 70 [in_i] 70 [in_i] [facility] ([facility]) 5'10" Body weight 146.059 kg 146.059 kg [facility] ([facility]) Body weight 322.00 [lb_av] 322.00 [lb_av] [facility] ([facility]) Oxygen saturation in Arterial blood by Pulse oximetry 96 % 96 % [facility]) Respiratory rate 18 /min 18 /min [facility] ( [facility]) Body temperature 97.8 [degF] 97.8 [degF] [facility]) Heart rate 97 /min 97 /min [facility]) Diastolic blood pressure 62 mm[Hg] 62 mm[Hg] [facility] ([facility]) Systolic blood pressure 120 mm[Hg] 120 mm[Hg] [facility] Body surface area 2.55 m2 2.55 m2 [facility] ([facility]) Body mass index (BMI) [Ratio] 45.8 kg/m2 45.8 k g/m2 [facility] ([facility]) Body height 70 [in_i] 70 [in_i] [facility] ([facility]) 5'10" Body weight 144.812 kg 144.812 kg [facility] ([facility]) Body weight 319.25 [lb_av] 319.25 [lb_av] [facility] ([facility]) Oxygen saturation in Arterial blood by Pulse oximetry 97 % 97 % [facility] Respiratory rate 16 /min 16 /min [facility] ( [facility]) Body temperature 97.9 [degF] 97.9 [degF] [facility]) Heart rate 88 /min 88 /min [facility]) Diastolic blood pressure 84 mm[Hg] 84 mm[Hg] [facility] ([facility]) Systolic blood pressure 138 mm[Hg] 138 mm[Hg] [facility] ID Date Data Source [id number] 11/19/2020 12:22:28 PM [facility] Name Value Range Interpretation Code Description Data Source(s) WEIGHT RECORDED 294 lb 294 lb [facility] Body height Measured 70 in 70 in [facility] Patient Treatment Plan of Care Planned Activity Planned Date Details Description Data Source (s) Morphine Sulfate 20 MG/ML Oral Solution 11/16/2020 12:00:00 AM [facility] Amylases [id number] UNT / Endopeptidases 3800 0 UNT / Lipase 34875 UNT Delayed Release Oral Capsule [Creon] 11/06/2020 12:00:00 AM [facility]
[2021-01-03] MEDS ORDERED: GI COCKTAIL 50ML BTL(HYOSCYAMINE/MAALOX/LIDOCAINE VISCOUS)(1:3:1) PO ONE (18:05)
[2021-01-03 18:49] LABS: BASO % 0.6 % (0.0-1.0); EOS # 0.1 10^3/uL (0.0-0.5); EOS % 1.5 % (0.0-3.0); HEMATOCRIT 43.8 % (42.0-52.0); HEMOGLOBIN 14.7 g/dl (13.5-17.5); LYMPH # 1.2 10^3/uL (1.5-5.0); LYMPH % 36.8 % (24.0-44.0); MEAN CORPUSCULAR HEMOGLOBIN 31.7 pg (27.0-33.0); MEAN CORPUSCULAR HGB CONC 33.6 g/dl (32.0-36.5); MEAN CORPUSCULAR VOLUME 94.6 fl (80.0-96.0); MONO # 0.7 10^3/uL (0.0-0.8); MONO % 21.4 % (2.0-8.0); NEUTROPHILS # 1.3 10^3/uL (1.5-8.5); NEUTROPHILS % 39.7 % (36.0-66.0); PLATELET COUNT, AUTOMATED 143 10^3/uL (150-450); RED BLOOD COUNT 4.63 10^6/uL (4.30-6.10); WHITE BLOOD COUNT 3.2 10^3/uL (4.0-10.0)
[2021-01-03] MEDS ORDERED: ISOVUE-370 76% 100ML VIAL As Ordered ONE (18:52)
[2021-01-03 19:15] LABS: ALBUMIN 3.6 GM/DL (3.2-5.2); ALT/SGPT 35 U/L (12-78); BILIRUBIN,DIRECT 0.2 MG/DL (0.0-0.2); BILIRUBIN,TOTAL 0.7 MG/DL (0.2-1.0); CK-MB VALUE MASS < 1.0 NG/ML (<3.6); CPK CREATINE PHOSPHOKINASE 55 U/L (39-308); LIPASE 178 U/L (73-393); MB/CK RELATIVE INDEX 1.82 (< OR =4); NT-PRO BNP 74 PG/ML (<125); TOTAL PROTEIN 8.6 GM/DL (6.4-8.2); TROPONIN I < 0.02 NG/ML (< 0.10)
[2021-01-03] MEDS ORDERED: PANTOPRAZOLE 40MG VIAL (C9113 PER 1) IV ONE (19:40)
--- NOTE | 2021-01-03 20:14 | REPVR ---
PROCEDURE INFORMATION: Exam: CT Abdomen And Pelvis With Contrast Exam date and time: 01/03/2021 7:15 PM Age: 50 years old Clinical indication: Abdominal pain; Generalized; Additional info: known pancreatic mass, n/v TECHNIQUE: Imaging protocol: Computed tomography of the abdomen and pelvis with contrast. Radiation optimization: All CT scans at this facility use at least one of these dose optimization techniques: automated exposure control; mA and/or kV adjustment per patient size (includes targeted exams where dose is matched to clinical indication); or iterative reconstruction. Contrast material: ISOVUE 370; Contrast volume: 100 ml; Contrast route: INTRAVENOUS (IV); COMPARISON: 1. CT ABD/PELVIS W/ IV CONTRAST ONLY - OUTSIDE PRIOR 09/29/2020 11:[address] ABD/PELVIS W/ CONTRAST - OUTSIDE PRIOR 06/25/2020 12:53:[address] ABD PELVIS W/O CONTRAST 07/08/2015 12:54:[address] ABD PELVIS WITH CONTRAST 06/27/2015 6:17:22 PM FINDINGS: Lungs: There is a 10 mm calcified granuloma in the posterior segment of the left lower lobe, which is stable compared to the prior CT abdomen and pelvis on 07/08/2015. The lungs were not fully imaged. Heart: No cardiomegaly or pericardial effusion. Liver: The attenuation of the liver is lower compared to the spleen, which can be seen with fatty liver infiltration. The liver has a nodular contour, which can be seen with cirrhosis. No liver lesion is seen. No hepatomegaly is noted. Gallbladder and bile ducts: There has been a cholecystectomy. There is no fluid collection in the gallbladder fossa. There is a stent in the common bile duct, which has been placed since the prior CT abdomen and pelvis on 09/29/2020. There is pneumobilia in the common bile duct and remaining portion of the cystic duct. Pancreas: There is a 5.6 cm mass in the head of the pancreas, has increased in size from 4.8 cm since the prior CT abdomen and pelvis on 09/29/2020, and encases the right colic artery and abuts the superior mesenteric vein. There is fat stranding around the head and neck of the pancreas, which may indicate acute pancreatitis. No pancreatic pseudocyst or abscess is noted. Spleen: The spleen is enlarged and measures 17.7 cm. There is a 13 mm lesion in the spleen that is stable compared to the prior CT abdomen and pelvis with contrast on 09/29/2020 and 06/25/2020, but not visualized in the CT abdomen and pelvis without contrast on 07/08/[address] abdomen and pelvis with contrast on 06/27/2015. Incidental note is made of a small accessory spleen. Adrenal glands: Normal. No adrenal mass is noted. Normal. No adrenal mass is noted. Kidneys and ureters: The kidneys are normal in appearance. No renal lesion is noted. No stones are noted in the kidneys or ureters. There is no hydronephrosis or hydroureter. There are no wedge-shaped areas of low attenuation in the kidneys to suggest pyelonephritis. There is no renal abscess or perinephric fluid collection. Stomach and bowel: The stomach and small bowel are unremarkable. There is mild colonic diverticulosis without evidence for diverticulitis. There is no evidence for a bowel obstruction, colitis, pneumatosis intestinalis, intussusception, volvulus, or perforated viscus. Appendix: Normal. There is no evidence for appendicitis. Intraperitoneal space: No free air. No ascites. No abscess. Retroperitoneal space: No retroperitoneal fluid collection. Vasculature: There are mild atherosclerotic calcifications. There are splenorenal varices. Lymph nodes: There are periaortic lymph nodes measuring up to 12 mm in short axis that are stable compared to the prior CT abdomen and pelvis on 09/29/2020. Urinary bladder: The partially distended urinary bladder is unremarkable. No stones or masses are seen in the bladder. Reproductive: There are calcifications in the prostate gland. The seminal vesicles are unremarkable. Bones/joints: There is no fracture or dislocation. No suspicious osteolytic or osteoblastic lesion. There are degenerative changes involving the lumbar spine. There is osteoarthritis of both hip joints. Soft tissues: Unremarkable. No hernia. No soft tissue fluid collection. IMPRESSION: 1. 5.6 cm mass in the head of the pancreas, which has increased in size from 4.8 cm since the prior CT abdomen and pelvis on 09/29/2020, encases the right colic artery, abuts the superior mesenteric vein, and is suspicious for malignancy. Tissue correlation is suggested for a pathologic diagnosis. 2. Fat stranding around the head of the pancreas, which may indicate acute pancreatitis. No pancreatic pseudocyst or abscess. 3. Retroperitoneal lymphadenopathy, which is stable compared to the prior CT abdomen and pelvis on 09/29/2020. 4. Nodular contour of the liver, which can be seen with cirrhosis and there is evidence for portal hypertension, with splenomegaly and splenorenal varices. 5. 13 mm indeterminate lesion in the spleen that is stable compared to the prior CT abdomen and pelvis with contrast on 09/29/2020 and 06/25/2020, but not visible in the CT abdomen and pelvis on 07/08/2015 or 06/27/2015 and potentially may represent a metastasis. 6. Mild colonic diverticulosis without evidence for diverticulitis. Electronically signed by: Dennis Abbott On 01/03/2021 20:15:03 PM
[2021-01-03] MEDS ORDERED: MORPHINE 4 MG/ML 1ML VIAL/SYRINGE (J2270) IV ONE (21:20)
[2021-01-03] MEDS ORDERED: NS 1,000 ML IV SCH ×2 (21:40→23:01)
[2021-01-03] MEDS ORDERED: BISA10SU27 PO (22:08)
[2021-01-03] MEDS ORDERED: CREO12CA PO (22:08)
[2021-01-03] MEDS ORDERED: MORP20SO3 SL (22:08)
[2021-01-03] MEDS ORDERED: BISA5TAB73 PO (22:08)
[2021-01-03] MEDS ORDERED: fentaNYL 100 MCG/2 ML INJECTION (J3010) IV ONE (22:45)
[2021-01-03] MEDS ORDERED: HYDROmorphone HCL 2 MG/ML 1ML VIAL (J1170) IV PRN (23:00)
[2021-01-03] MEDS ORDERED: HYDROMORPHONE HCL 0.5 MG/ 0.5 ML SYRINGE (J1170 PER 1) IV PRN (23:00)
[2021-01-03] MEDS ORDERED: MAALOX 30 ML SUSP *UDC PO PRN (23:05)
[2021-01-03] MEDS ORDERED: MOM 30ML SUSPENSION UDC PO PRN (23:05)
--- NOTE | 2021-01-03 23:08 | HPEPDOC ---
[facility] Medical History & Physical Date of Admission Jan 03, 2021 Date of Service: Jan 03, 2021 Primary Care Physician: A Attending Physician: ADE CH MD History and Physical CHIEF COMPLAINT: Upper quadrant abdominal pain HISTORY OF PRESENT ILLNESS: Patient is a 50-year-old male with a known history of pancreatic adenocarcinoma, HTN, DM, hemochromatosis with resultant liver cirrhosis and a hx of NHL, who presented to the emergency department the evening of 01/03/21 reporting constipation without a solid bowel movement for 2 days. Reports 1 loose stool on 01/02 and another just prior to presentation. He is on morphine at home, p rescribed by palliative care, to help control his pain. Patient stated that he took his morphine, but it did not make a difference. His unremitting pain, in the setting of constipation, caused him enough concern to present to the ED. Upon presentation he reported pain a 12/11, generalized anteriorly, radiating bilaterally to his flanks and to his mid back. Reported a single bout of emesis. Has been passing gas. He was afebrile, heart rate, respiratory rate 22, blood pressure 144/92 maintaining an oxygen saturation of 98% on room air. CBC does show leukopenia with a WBC of 3.2, platelet count of 143. H/H of 14.7/43.8. BMP within normal limits. Liver function tests within normal limits. Lipase of 178. Plain film images were negative for acute findings, CT of the abdomen and pelvis with contrast it demonstrated increasing size of patient's known pancreatic mass. Patient was treated with 4 mg of IV morphine and subsequent 25 g of fentanyl for adequate control of his symptoms. Hospitalist team was contacted to admit the patient for pain management. PAST MEDICAL HISTORY: Pancreatic Adenocarcinoma, moderately differentiated Non-Hodgkin Lymphoma, Underwent localized therapy with excision followed by radiation therapy, [address], and via biopsy Hereditary hemochromatosis, gene testing in 07/24/2020 showing single mutation, H63D Hypertension Hyperlipidemia Diabetes Morbid obesity Ureteral stones Tubular adenoma ANGEL Obstructive lung disease PAST SURGICAL HISTORY: tonsillectomy Cholecystectomy Cystoscopy, laser lithotripsy for right ureteral stone SOCIAL HISTORY: Marital status: Single Children: 3 children Employment: Patient is currently unemployed, 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 Tobacco use:Reports smoking ciggarets until his dx of NHL in 2010. Reports continued use of chewing tobacco. ETOH: Denies etoh use Illicit drug use: Denies ilicit drug use, including marijuana FAMILY HISTORY: Father: Liver cancer Mother: Colon cancer Children: 3 children, healthy Hereditary Diseases: Hemochromatosis Paternal uncle with stomach cancer ALLERGIES: Please see below. REVIEW OF SYSTEMS: CONSTITUTIONAL: Denies any recent fevers, chills, changes in weight, fatigue, he does however, report difficulty sleeping secondary to pain and discomfort. HEENT: As a recent headaches, changes in his vision changes in hearing, no difficulty swallowing. CARDIOVASCULAR: Patient reports mild epigastric discomfort earlier today, since resolved, otherwise denies any chest pain/pressure, palpitations RESPIRATORY: Denies any shortness of breath, cough, wheeze GASTROINTESTINAL: As mentioned in HPI, patient complains of bilateral generalized abdominal discomfort with radiation to the flanks and posterior mid back, reports constipation 48 hours with 2 small bouts of loose stool, GENITOURINARY: Denied any difficulty urinating SKIN: No new skin rashes or skin lesions, no apparent jaundice MUSCULOSKELETAL: No muscle aches or pains NEUROLOGICAL: Denies any numbness or tingling in his hands or feet or legs, difficulty ambulating, HOME MEDICATIONS: Please see below. PHYSICAL EXAMINATION: VITAL SIGNS: Please see below GENERAL APPEARANCE: Patient is interviewed and examined in the emergency department. Patient was found to be seated comfortably in his bedside chair in no acute distress. 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 HEENT: AC/AT, no scleral icterus, MMM, fair oral hygiene, no cervical lymphadenopathy CARDIOVASCULAR: Regular rate and rhythm without murmurs LUNGS: Clear to auscultation bilaterally ABDOMEN: Obese, soft, nontender, no palpable masses, no peritoneal signs, no CVA tenderness MUSCULOSKELETAL: Patient is able to ambulate amongst the examination room, moves both upper and lower extremities equally bilaterally, no vertebral tenderness EXTREMITIES: Lower extremity edema or swelling, radial and posterior tibial pulses 2+ NEUROLOGICAL: Alert and oriented 3, no dysphagia, dysarthria or facial droop, cranial nerves are grossly intact PSYCHIATRIC: Mood and affect are appropriate given patient's current clinical condition LABORATORY DATA: See below. IMAGING: Abdomen x-ray (01/03/21) No acute findings CT abdomen/pelvis with contrast (01/03/21): 5.6 cm mass in the pancreas, size 4.[address] on 09/29/2020, encases the right colic artery, but the superior mesenteric vein, suspicious for malignancy. Tissue correlation is suggested for pathologic diagnosis. Fat stranding around the head of the pancreas which may indicate acute pancreatitis. No pancreatic pseudocyst or abscess. Retroperitoneal lymphadenopathy, stable compared to prior CT. Nodular contour of the liver which has been seen with cirrhosis and is evidence of portal hypertension with splenomegaly and splenorenal varices. 13 mm indeterminate lesion in the spleen that is stable compared to prior CT may potentially indicate metastasis. Mild colonic diverticulosis by evidence for diverticulitis. MICROBIOLOGY: Please see below. ASSESSMENT: Patient is a 50-year-old male with a known history of pancreatic adenocarcinoma, HTN, DM, hemochromatosis with resultant liver cirrhosis and a hx of NHL, who p resented to the emergency department the evening of 01/03/21 reporting increasing abdominal pain and discomfort. CT imaging demonstrated progression of patient's known pancreatic malignancy. He was treated with IVF and fentnyl in the ED with moderate improvement. Patient will be admitted for further monitoring and management of his cancer-related pain. PLAN: #Pancreatic mass, likely liver mets -Patient is followed by Dr. Espinosa outpatient, appears he has also followed with Dr. Curiel and Dr. Hubbard, GI and medical surgical tech in [place]. -Patient is not a candidate for whipple 2/2 to cirrhosis and portal HTN. Recommend chemotherapy, Abraxane/Gemcitabine. Unable to start 2/2 to COVID-19. -Followed by Deborah Ozuna of palliative care, who is prescribing patient morphin e for his abdominal and back pain. Consider pain management consultation. -At this time, patient does not appear to have acute pancreatitis based on above lab findings. Normal LFTs, Lipase 178 -NPO diet, with plan to advance as tolerated, I/O monitoring, bowel regimen for constipation -IV fluid hydration, will reduce rate from 250 as per pancreatitis protocol to 150cc/hr -IV Dilaudid PRN for pain control #IDDM -Home medications -CC diet when tolerating by mouth intake, SSI #Hypertension -normotensive -c/w Lisinopril #Leukopenia and thrombocytopenia -Suspect secondary to patient's cirrhosis and enlarged spleen -AM lab monitoring #Depression/Anxiety -c/w home paroxetine #COVID-19 Positive via PCR -Pt diagnosed with COVID in late 11/28, which resulted in patient being unable to start chemotherapy -Reports symptoms have resolved >2 weeks -Inflammatory markers ordered DVT PROPHYLAXIS: LMWH, platelet monitoring CODE STATUS: Full Code Vital Signs Vital Signs Date Time Temp Pulse Resp B/P (MAP) Pulse Ox O2 Delivery O2 Flow Rate FiO2 01/03/21 22:37 97.4 78 20 123/67 (85) 95 Room Air Laboratory Data Labs 24H Laboratory Tests 2 01/03/21 18:23: Immature Granulocyte % (Auto) 0.0, Neutrophils (%) (Auto) 39.7, Lymphocytes (%) (Auto) 36.8, Monocytes (%) (Auto) 21.4H, Eosinophils (%) (Auto) 1.5, Basophils (%) (Auto) 0.6, Neutrophils # (Auto) 1.3L, Lymphocytes # (Auto) 1.2L, Monocytes # (Auto) 0.7, Eosinophils # (Auto) 0.1, Basophils # (Auto) 0.0, Nucleated Red Blood Cells % (auto) 0.0, Total Bilirubin 0.7, Direct Bilirubin 0.2, Aspartate Amino Transf (AST/SGOT) 28, Alanine Aminotransferase (ALT/SGPT) 35, Alkaline Phosphatase 85, Total Creatine Kinase 55, Creatine Kinase MB < 1.0, Creatine Kinase MB Relative Index 1.82, Troponin I < 0.02, [id number] Natriuretic Peptide 74, Total Protein 8.6H, Albumin 3.6, Albumin/Globulin Ratio 0.7, Lipase 178 01/03/21 18:40: POC Glucose (Misc Panel) 73, POC Sodium (Misc Panel) 140, POC Potassium (Misc Panel) 3.5, POC Chloride (Misc Panel) 104, POC Total CO2 (Misc Panel) 23.0, POC Blood Urea Nitrogen (Misc Panel 4L, POC Ionized Calcium (Misc Panel) 5.0, POC Creatinine (Misc Panel) 0.4L, POC Hematocrit (Misc Panel) 45.0 CBC/BMP Laboratory Tests 01/03/21 18:23 Home Medications Scheduled Alogliptin Benzoate (Nesina) 25 Mg Tablet, 25 MG PO DAILY Bisacodyl (Bisacodyl) 5 Mg Tablet.dr, 5 MG PO BID Gabapentin (Neurontin) 100 Mg Cap, 100 MG PO TID Glipizide (Glipizide) 10 Mg Tablet, 10 MG PO BID Insulin Glargine,Hum.rec.anlog (Basaglar Kwikpen U-100) 100 Unit/1 Ml Insuln.pen, 15 UNIT SC DAILY Lisinopril (Lisinopril) 10 Mg Tab, 10 MG PO DAILY Pancreatic Enzymes (Creon Dr 12,000 Units Capsule) 1 Each Capsule.dr, 12,000 UNITS PO TID Paroxetine HCl (Paroxetine) 10 Mg Tablet, 10 MG PO DAILY Pioglitazone HCl (Pioglitazone HCl) 15 Mg Tablet, 15 MG PO DAILY Scheduled PRN Albuterol Sulfate (Proair Hfa) 8.5 Gm Hfa.aer.ad, 2 PUFF INH Q4H PRN for wheezing Bisacodyl (Bisacodyl) 10 Mg Supp.rect, 10 MG PO DAILY PRN for CONSTIPATION Morphine Sulfate (Morphine Sulfate) 100 Mg/5 Ml Solution, 0.5 ML SL Q4H PRN for PAIN Allergies Coded Allergies: No Known Drug Allergies (Verified Allergy, Unknown, 09/29/20) aspartame (Verified Allergy, Unknown, 01/04/21) GME ATTESTATION GME ATTESTATION My faculty preceptor for this patient encounter was physically present during the encounter and was fully available. All aspects of the patient interview, examination, medical decision making process, and medical care plan development were reviewed and approved by the faculty preceptor. The faculty preceptor is aware and concurs with the plan as stated in the body of this note and will attest to such by his/her cosignature. ATTENDING NOTE time of service 1120pm is a 50 yr old w a hx of pancreatic cancer DM HTN NHL factor V leiden hemochromatosis ANGEL and obesity who presented w c/o 6 days of abdominal pain along w n/v; he will be admitted for management of abdominal pain likely due to increasing size of the pancreatic mass. He was diagnosed with COVID in Nov but his test remains positive. OPAL Vee discussed the case with (Hem/Onc) who said pt is not a candidate to start chemo right now bc it will likely make the pain worse. Pls consult pain management for recs on regimen and or anesthesia for nerve block. rest per 's H&P EZEKIEL MARRUFO DO Jan 03, 2021 23:08 ADE CH MD Jan 04, 2021 05:24
--- OUTSIDE RECORDS SUMMARY | 2021-01-03 23:12 | CCD ---
Author Author [facility] Organization [facility] Address Unknown Phone Unavailable Care Team Providers [facility] Cna Name Role Phone Clifford PHILIPPE MD Unavailable [...] Clifford PHILIPPE MD Unavailable Unavailable [facility] Unavailable Unavailable Basilio HOBBS MD Unavailable Unavailable [...] Unavailable Unavailable Basilio HOBBS MD Unavailable Unavailable aBsilio HOBBS MD Unavailable Unavailable ARNOLD, P TIFFANIE [...] TIFFANIE MD Unavailable Unavailable BUMBANAC, A STAR SOLDERING INSPECTOR Unavailable Unavailable BUMBANAC, A STAR SOLDERING INSPECTOR Unavailable Unavailable BUMBANAC, A STAR SOLDERING INSPECTOR Unavailable Unavailable BUMBANAC, A STAR SOLDERING INSPECTOR Unavailable Unavailable BUMBANAC, A STAR SOLDERING INSPECTOR Unavailable Unavailable BUMBANAC, A STAR SOLDERING INSPECTOR Unavailable Unavailable BUMBANAC, A STAR SOLDERING INSPECTOR Unavailable Unavailable BUMBANAC, A STAR SOLDERING INSPECTOR Unavailable Unavailable BUMBANAC, A STAR SOLDERING INSPECTOR Unavailable Unavailable BUMBANAC, A STAR SOLDERING INSPECTOR Unavailable Unavailable BUMBANAC, A STAR SOLDERING INSPECTOR Unavailable Unavailable BUMBANAC, A STAR SOLDERING INSPECTOR Unavailable Unavailable BUMBANAC, A STAR SOLDERING INSPECTOR Unavailable Unavailable BUMBANAC, A STAR SOLDERING INSPECTOR Unavailable Unavailable BUMBANAC, A STAR SOLDERING INSPECTOR Unavailable Unavailable BUMBANAC, A STAR SOLDERING INSPECTOR Unavailable Unavailable BUMBANAC, A STAR SOLDERING INSPECTOR Unavailable Unavailable BUMBANAC, A STAR SOLDERING INSPECTOR Unavailable Unavailable BUMBANAC, A STAR SOLDERING INSPECTOR Unavailable Unavailable BUMBANAC, A STAR SOLDERING INSPECTOR Unavailable Unavailable BUMBANAC, A STAR SOLDERING INSPECTOR Unavailable Unavailable BUMBANAC, A STAR SOLDERING INSPECTOR Unavailable Unavailable BUMBANAC, A STAR SOLDERING INSPECTOR Unavailable Unavailable BUMBANAC, A STAR SOLDERING INSPECTOR Unavailable Unavailable BUMBANAC, A STAR SOLDERING INSPECTOR Unavailable Unavailable BUMBANAC, A STAR SOLDERING INSPECTOR Unavailable Unavailable BUMBANAC, A STAR SOLDERING INSPECTOR Unavailable Unavailable BUMBANAC, A STAR SOLDERING INSPECTOR Unavailable Unavailable ARNOLD, P TIFFANIE MD Unavailable [...] P TIFFANIE MD Unavailable Unavailable ARNOLD, P TIFFANEI MD Unavailable Unavailable ARNOLD, P TIFFANIE MD [...] REINDL, JOSÉ SALCEDO Unavailable Unavailable REINDL, JOSÉ SALCDEO Unavailable Unavailable REINDL, JOSÉ SALCEDO Unavailable Unavailable [...] F Shelli MD Unavailable Unavailable Kunnumpurath, F Sehlli MD Unavailable Unavailable Kunnumpurath, F Shelli MD [...] Unavailable Kunnumpurath, F Shelli MD Unavailable Unavailable Benedict F Shelli SALCEDO Unavailable Unavailable Benedict F Shelli SALCEDO Unavailable Unavailable Clifford PHILIPPE MD Unavailable Unavailable Clifford PHILIPPE MD Unavailable Unavailable ZClifford PAIZ MD Unavailable Unavailable ZULICKClifford MD Unavailable Unavailable ZULICK C AARON SALCEDO Unavailable Unavailable ZULICK C AARON SALCEDO Unavailable Unavailable ZClifford PAIZ MD Unavailable Unavailable ZClifford PAIZ MD Unavailable Unavailable ZClifford PAIZ MD Unavailable Unavailable ZClifford PAIZ MD Unavailable Unavailable ZULICK C AARON MD Unavailable Unavailable ZIZABEL C AARON MD Unavailable Unavailable ZIZABEL C AARON SALCEDO Unavailable Unavailable Clifford PHILIPPE MD Unavailable Unavailable Matt GREENE Unavailable Unavailable Haydee, Sandra SALCEDO Unavailable Unavailable Haydee, Masmanjula SALCEDO Unavailable Unavailable Haydee, Masmanjula SALCEDO Unavailable Unavailable Haydee, Masmanjula MD Unavailable Unavailable Haydee, Masmanjula SALCEDO Unavailable [...] Unavailable Haydee, Mashashanon SALCEDO Unavailable Unavailable Haydee, Sandra SALCEDO Unavailable [...] Unavailable Verdugo, M Lisa PA-C Unavailable Unavailable Vredugo, M Lisa PA-C Unavailable Unavailable Verdugo, M Lisa PA-C Unavailable Unavailable Verdugo, M Lisa PA-C Unavailable Unavailable Verdugo, M Lisa PA-C Unavailable Unavailable Verdugo, M Lisa PA-C Unavailable Unavailable Verdugo, M Lisa PA-C Unavailable Unavailable Verdugo, M Lisa PA-C Unavailable Unavailable Verdugo, M Lisa PA-C Unavailable Unavailable Verdugo, M Lisa PA-C Unavailable Unavailable Josh Ventura Unavailable Unavailable CLARK, ROBBY MD Unavailable Unavailable [...] Unavailable Unavailable CLARK, ROBBY MD Unavailable Unavailable CLARKROBBY MD Unavailable Unavailable CLARKROBBY MD Unavailable Unavailable CLARKROBBY MD Unavailable Unavailable CLARKROBBY MD Unavailable Unavailable CLARKROBBY MD Unavailable Unavailable CLARKROBBY MD Unavailable Unavailable CLARKROBBY MD Unavailable Unavailable CLARKROBBY MD Unavailable Unavailable CLARKROBBY MD Unavailable Unavailable CLARK, ROBBY MD Unavailable Unavailable CLARK, ROBBY MD Unavailable Unavailable Verdugo, M Lisa PA-C [...] is protected by Article 27-F of the [facility] Public Health law. If you continue you may have access to information: Regarding HIV / AIDS; Provided by facilities licensed or operated by the [facility] Office of Mental Health; or Provided by the [facility] Office for People With Developmental Disabilities. If such information is present, then the following [facility] mandated warning applies: This information has [...] law may result in a fine or nursing home sentence or both. A general authorization for the release of medical or other information is NOT sufficient authorization for further disc losure. Allergies and Adverse Reactions Type Description Substance Reaction Status Data Source(s ) Drug allergy No Known Drug Allergies No Known Drug Allergies [facility] No Known Drug Allergies No Known Drug Allergies [facility] No Known Food Allergies No Known Food Allergies [facility] ENVIRONMENTAL BEES BEES [facility] Drug Class NO KNOWN ALLERGIES NO KNOWN ALLERGIES [facility] Family History Family Member Name Family Member Gender Family Member Status Date o f Status Description Data Source(s) Unknown Female Problem [facility] ([facility]) Unknown Unknown Problem [facility] ([facility]) Encounters Encounter Providers Location Date Indications Data Source(s ) Outpatient Attender: Lisa GORDONCConsultant: ROBBY KINGSTON MD 12/12/2020 08:16:00 AM [facility] - 12/12/2020 08:16:00 AM [facility] Outpatient Attender: Sandra UnderwoodA-MLTCACTR 12/11/2020 03:47:[address] [facility] Outpatient Attender: Sandra Hubbard MD 2020 12:00:00 AM [facility] - 12/12/2020 08:50:[address] [facility] Outpatient Attender: SANDY UnderwoodA-MLTCACTR 12/05/2020 12 :24:[address] [facility] Outpatient Attender: Lisa GORDONCConsultant: ROBBY KINGSTON MD 12/05/2020 10:09:00 AM [facility] - 12/05/2020 10:09:00 AM [facility] Outpatient Attender: Lisa Verdugo PA-C Family [facility] 11/09 09:20:00 AM EST [facility] Outpatient Attender: RENNY STARK NPConsultant: ROBBY CLAROS MD 12/02/2020 05:07:00 PM [facility] - 12/02/2020 05:07:00 PM [facility] Outpatient Attender: Constance Allred-MLTCACTR 11/26/19 12:00:00 AM EST - 11/26/2020 03:06:22 PM EST Malignant neoplasm of pancreas, unspecified [facility] Malignant neoplasm of pancreas, unspecif ied Outpatient Attender: Sandra Hubbard MDReferrer: TIFFANIE GEORGES MD 07A-MLTCACTR 11/18/2020 12:00:00 AM EST - 11/18/2020 09:52:16 AM EST Malignant neoplasm of pancreas, unspecified [facility] Malignant neoplasm of pancreas, unspecif ied Outpatient Admitter: Sadnra Hubbard MDReferrer: Sandra Hubbard MD 11/15/2020 12:00:00 AM EST Other specified diseases of pancreas [facility] Other specified diseases of pancreas Outpatient Attender: Lisa GORDONCConsultant: ROBBY KINGSTON MD 11/11/2020 08:22:00 AM EST - 11/11/2020 08:22:00 AM EST [facility] Outpatient Referrer: TED COOMBS 10/28/2020 02:44:00 PM EST Other specified diseases of pancreas [facility] Other specified diseases of pancreas Outpatient Attender: Ted Markerrer: Ted Coombs DO MOB-M OB.PAT 10/24/2020 07:43:01 AM EST - 10/24/2020 08:59:32 AM EST [facility] Outpatient Referrer: Ted Coombs DO MOB-MOB.PAT 10/24/2020 12:00:00 AM EST - 10/24/2020 11:08:32 AM EST [facility] Outpatient Attender: Ted Coombs DOAdmitter: Ted Markerrer: Ted Coombs DO ES1-SJ.EU 10/22/2020 03:15:59 PM EST - 10/28/2020 10:08:00 AM EST [facility] Patient discharged. Outpatient Attender: JOSÉ Su/Viviana/Delvis/Abdiel mora 10/16/2020 09:15:00 AM EST [facility] ([facility] Outpatient Admitter: Karon Ellingtonerrer: Karon Ventura 10/09/2020 12:00:00 AM EST Other specified diseases of pancreas [facility] Other specified diseases of pancreas Outpatient Attender: Lisa Monsalveultant: ROBBY KINGSTON MD 10/08/2020 09:07:00 AM EST - 10/08/2020 09:07:00 AM [facility] Outpatient Attender: [facility] 09/29/2020 10:1 7:00 AM [facility] Emergency Attender: TAIFERNANDA SCHAEFER MDConsultant: ROBBY CLAROS MD 09/29/2020 10:10:00 AM [facility] - 09/29/2020 02:17:00 PM [facility] Patient discharged. Outpatient Attender: TIFFANIE HOBBS MDConsultant: ROBBY PLASENCIA MD 08/27/2020 08:24:00 AM EDT - 08/27/2020 09:24:00 AM EDT [facility] Office Visit Attender: AARON PHILIPPE MD Family Practice 2019 09:45:00 AM EDT [facility] ([facility] Outpatient Attender: AARON PHILIPPE MDConsultant: ROBBY Gutierrez MD 08/01/2020 08:44:00 AM EDT - 08/01/2020 08:44:00 AM EDT [facility] Outpatient Attender: Lisa GORDONCConsultant: ROBBY KINGSTON MD 07/25/2020 08:26:00 AM EDT - 07/25/2020 08:26:00 AM EDT [facility] Outpatient Attender: AARON PHILIPPE MDConsultant: ROBBY Gutierrez MD 07/17/2020 08:48:00 AM EDT - 07/17/2020 08:48:00 AM EDT [facility] Outpatient Attender: Shelli Mcmullen MDConsultant: ROBBY CLARK MD 07/17/2020 06:47:00 AM EDT - 07/17/2020 06:47:00 AM EDT [facility] Outpatient Attender: Lisa GORDONCConsultant: ROBBY KINGSTON MD 06/25/2020 07:05:00 AM EDT - 06/25/2020 07:05:00 AM EDT [facility] Outpatient Attender: ROBBY CLARK MD 03/21/2018 09:0 4:00 AM EDT R30.0,E11.9,E11.65 [facility] R30.0,E11.9,E11.65 Emergency Attender: José Fernandes MD 05/10 04:15:00 PM EDT - 06/07/2015 05:05:00 PM EDT BACK /FLANK PAIN,VOMITING [facility] BACK /FLANK PAIN,VOMITING Immunizations Vaccine Date Status Description Data Source(s) Flu Vaccine Historical 08/08/2020 12:00:00 AM EDT completed Flu Vaccine Historical 08/08/2020 [facility] in 2011. IIV4 07/25/2020 09:50:00 AM EDT completed MEDENT ([facility]) Medications Medication Brand Name Start Date [...] 12/09/2020 12:00 :00 AM EST active MED[facility] ([facility]) 0.5 mL 31 gauge x 5/16" 12/08/2020 12:00:00 AM EST syringe 30 USE WITH BASAGLAR DAILY USE WITH BASAGLAR DAILY SOLD: 12/10/2020 [facility] 33 gauge 12/06/2020 12:00:00 AM EST misc 100 USE FOUR TIMES A DAY USE FOUR TIMES A DAY SOLD: 12/07/2020 [facility] Ondansetron 8 MG Disintegrating Oral Tablet Ondansetron 12/03/2020 12:00:00 AM EST ORAL active MED[facility] ([facility]) Ondansetron 4 MG Oral Tablet [Zofran] Zofran 12/03/2020 12:00:00 AM EST ORAL completed [facility] ([facility]) 8 mg 12/03/2020 12:00:00 AM [...] 11/18/2020 12:00:00 AM EST act haydee MEDENT ([facility]) Morphine Sulfate 20 MG/ML Oral Solution Morphine Sulfate (Concentrate) 100 MG/5ML Oral Solution Morphine Sulfate (Concentrate) 100 MG/5ML Oral Solutio n 11/16/2020 12:00:00 AM EST [facility] 100 mg/5 mL (20 mg/mL) 11/16/2020 [...] MAXIMUM DAILY DOSE = 4 SOLD: 11/18/2020 [facility] 1 mg 11/15/2020 12:00:00 AM EST tablet 5 TAKE ONE TABLET BY MOUTH 1 HOUR PRIOR TO PROCEDURE, MAY TAKE A SECOND DOSE NEEDED FOR SEVERE ANXIETY MAXIMUM DAILY DOSE = 2 TABLETS TAKE ONE TABLET BY MOUTH 1 HOUR PRIOR TO PROCEDURE, MAY TAKE A SECOND DOSE NEEDED FOR SEVERE ANXIETY MAXIMUM DAILY DOSE = 2 TABLETS SOLD: 11/18/2020 [facility] Morphine Sulfate 20 MG/ML Oral Solution 100 [...] MAXIMUM DAILY DOSE = 4ML SOLD: 11/07/2020 [facility] Amylases 16479 UNT / Endopeptidases 3800 0 UNT / Lipase 10194 UNT Delayed Release Oral Capsule [Creon] Creon 06694 UNIT Oral Capsule Delayed Release Particles Creon 82274 UNIT Oral Capsule Delayed Release Particles 11/06/2020 12:00:00 AM EST active TAKE ONE CAPSULE BY MOUTH THREE TIMES A DAY WITH MEALS [facility] 12,000-38,000 -60,000 unit 11/06/2020 12:00:00 A M EST capsule,delayed release(DR/EC) 90 TAKE ONE CAPSULE BY MOUTH THREE TIMES A DAY WITH MEALS TAKE ONE CAPSULE BY MOUTH THREE TIMES A DAY WITH MEALS SOLD: 11/07/2020 [facility] Onetouch Delica Lancets Extra Fine 33G 10/15/2020 12:00:00 AM NERY Givens completed MEDENT ([facility]) BLOOD SUGAR DIAGNOSTIC 10/09/2020 12:00:00 AM EST strip 150 TEST TWO TIMES A DAY TEST TWO TIMES A DAY SOLD: 10/10/2020 [facility] 31 gauge x 5/16" 10/07/2020 12:00:00 AM EST needle 30 USE WITH BASAGLAR DAILY USE WITH BASAGLAR DAILY SOLD: 10/07/2020 [facility] 100 unit/mL (3 mL) 10/07/2020 12:00:00 AM EST insulin pen 15 INJECT 10 UNITS SUBCUTANEOUSLY ONCE DAILY INJECT 10 UNITS SUBCUTANEOUSLY ONCE DAILY SOLD: 10/07/2020 [facility] Basaglar Kwikpen Basaglar Kwikpen 10/07/2020 12:00:00 AM EST SUBCUTANEOUS active MED[facility] ([facility]) Insulin Syringes/0.5ML/31GX /16" 10/07/2020 12:00:00 AM EST active MED[facility] ([facility]) 31 gauge x 5/16" 10/07/2020 12:00:00 AM [...] TABLET BY MOUTH EVERY DAY SOLD: 12/31/2020 [facility] atorvastatin 20 MG Oral Tablet ATORVASTATIN [...] 07/25/2020 12:00:00 AM EDT ORAL active MED[facility] ([facility]) 875-125 mg 07/17/2020 12:00:00 AM EDT tablet 14 TAKE ONE TABLET BY MOUTH TWICE A DAY TAKE ONE TABLET BY MOUTH TWICE A DAY SOLD: 07/24/2020 [facility] cefTRIAXone(Rocephin) Vial 1 G 07/17/2020 12:00:00 AM EDT completed [facility] ([facility]) Medication administered onsite Amoxicillin 875 MG / Clavulanate 125 MG Oral Tablet Am oxicillin/Clavulanate Potassium 07/17/2020 12:00:00 AM EDT ORAL completed [facility] ([facility]) 875-125 mg 07/17/2020 12:00:00 AM EDT tablet 14 TAKE ONE TABLET BY MOUTH TWICE A DAY TAKE ONE TABLET BY MOUTH TWICE A DAY SOLD: 07/17/2020 [facility] Paroxetine Hydrochloride 10 MG Oral Tablet [...] EVERY DAY SOLD: 05/08/2020 [facility] Onetouch Ultra 03/05/2020 12:00:00 AM EDT act haydee MED[facility] ([facility]) 10 mg 03/04/2020 12:00:00 AM EDT [...] TABLET BY MOUTH EVERY DAY SOLD: 02/08/2020 [facility] pioglitazone 15 MG Oral Tablet PIOGLITAZONE HCL 01/10/2020 12:00 :00 AM EST tablet 30 TAKE ONE TABLET BY MOUTH EVERY D AY TAKE ONE TABLET BY MOUTH EVERY DAY SOLD: 03/09/2020 [facility] pioglitazone 15 MG Oral Tablet Pioglitazone HCL 01/09/2020 12:00:00 A M EST ORAL active [facility] ([facility]) alogliptin 25 MG Oral Tablet Alogliptin Benzoate 01/09/2020 12:00:00 AM EST ORAL active [facility] ([facility]) 10 mg 01/02/2020 12:00:00 AM EST tablet 30 TAKE ONE TABLET BY MOUTH EVERY DAY TAKE ONE TABLET BY MOUTH EVERY DAY SOLD: 01/09/2020 [facility] 50 mg 01/02/2020 12:00:00 AM EST tablet 120 TAKE 1-2 TABLETS BY MOUTH EVERY 6 HOURS NEEDED TAKE 1-2 TABLETS BY MOUTH EVERY 6 HOURS NEEDED SOLD : 01/09/2020 [facility] 50 mg 01/02/2020 12:00:00 AM EST tablet 120 TAKE 1-2 TABLETS BY MOUTH EVERY 6 HOURS NEEDED TAKE 1-2 TABLETS BY MOUTH EVERY 6 HOURS NEEDED SOLD : 02/08/2020 [facility] 10 mg 01/02/2020 12:00:00 AM EST [...] BY MOUTH TWICE A DAY SOLD: 01/09/2020 [facility] 25-15 mg 12/15/2019 12:00:00 AM EST tablet 30 TAKE ONE TABLET BY MOUTH EVERY DAY TAKE ONE TABLET BY MOUTH EVERY DAY SOLD: 12/18/2019 [facility] atorvastatin 20 MG Oral Tablet ATORVASTATIN [...] 11/28/2019 12:00:00 AM EST ORAL active [facility] ([facility]) 50 mg 10/26/2019 12:00:00 AM EST [...] MOUTH EVERY 6 HOURS NEEDED SOLD: 11/07/2019 [facility] Insurance Providers Payer name Policy type / Coverage type Policy ID Covered green party ID Covered green party's relationship to gonzalez Policy Gonzalez Plan Information [employer] COMMUNITY PLAN [id number] SP [id number] [facility] COMMUNTY PLAN [id number] [employer] COMMUNITY PLAN XIX [id number] [facility] I [id number] Self [id number] [facility] MEDICAID [id number] Radha [id number] INSURANCE COVID-19 COVID Radha C OVID [employer] COMMUNITY PLAN [id number] 18 [id number] [facility] MEDICAID [id number] INSURANCE COVID-19 [id number] [employer](MCAID) O [id number] S [id number] [employer] COMMUNITY PLAN MCDO [id number] SP [id number] [facility] Communty Plan Medicaid [id number] Self [id number] [facility] Communty Plan Medicaid [id number] Self [id number] MEDICAID -RECURRING [id number] [facility] Communty Plan Medicaid [id number] Self [id number] [facility] Communty Plan Medicaid [id number] Self 10 [id number] [facility] Communty Plan Medicaid [id number] Self [id number] [facility] Communty Plan Medicaid [id number] Self [id number] [employer] COMMUNITY PLAN [id number] 18 [id number] [employer] COMMUNITY PLAN MCDO [id number] SP [id number] EXCELLUS I [id number] Self [id number] [employer] COMMUNITY PLAN [id number] SP [id number] [employer] Community Plan Medicaid [id number] Self [id number] [employer] Community Plan Medicaid [id number] Self [id number] [employer] Community Plan Medicaid [id number] Self [id number] [employer] Community Plan Medicaid [id number] Self [id number] UNHC AMERICHOICE XIX -HMO [id number] 18 [id number] [employer] Community Plan Medicaid [id number] Self [id number] [employer] Community Plan Medicaid Self Unitedhealthcare Medicaid Medicaid Self UNHC AMERICHOICE HMO [id number] 18 [id number] HMO BLUE [id number] SP [id number] MEDICAID - CLINIC [id number] BLUE CROSS BLUE SHIELD-CLINIC [id number] 18 [id number] BLUE CROSS BLUE SHIELD-O/P [id number] 18 [id number] BLUE CROSS BLUE SHIELD-O/P [id number] 18 [id number] MEDICAID-O/P [id number] MEDICAID -O/P EMERGENCY ROOM [id number] 18 [id number] Problems, Conditions, and Diagnoses Code Display Name Description Problem Type Effective Dates Data Source(s) [id number] Pure hypercholesterolemia Pure hypercholesterolemia Pr oblem 07/17/2020 12:00:00 AM EDT [facility] [id number] 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 Problem 020 12:00:00 AM EDT [facility] E119 Type 2 diabetes mellitus without complic ations Type 2 diabetes mellitus without complications Diagnosis 12/05/2020 10:09:00 AM [facility] C259 Malignant neoplasm of pancreas, unspecif ied Malignant neoplasm of pancreas, unspecified Diagnosis 12/05/2020 10:09:00 AM [facility] U071 COVID-19 COVID-19 Diagnosis 12/05/2020 10:09:00 AM [facility] Z13.79 Encounter for other screening for geneti c and chromosomal anomalies Encounter for other screening for genetic and chromosomal anomalies Diagnosis 11/26/2020 08:01:[address] [facility] Z71.83 Encounter for nonprocreative genetic cou nseling Encounter for nonprocreative genetic counseling Diagnosis 11/26/2020 08:01:[address] [facility] C25.9 Malignant neoplasm of pancreas, unspecif ied Malignant neoplasm of pancreas, unspecified Diagnosis 11/18/2020 01:41:20 PM [facility] K74.69 Other cirrhosis of liver Other cirrhosis of liver Diag nosis 11/18/2020 08:57:[address] [facility] K86.89 Other specified diseases of pancreas Oth er specified diseases of pancreas Diagnosis 11/15/2020 12:10:[address] [facility] C8590 Non-Hodgkin lymphoma, unspecified, unspe cified site Non-Hodgkin lymphoma, unspecified, unspecified site Diagnosis 11/11/2020 08:22:00 AM [facility] L97751 Hemochromatosis, unspecified Hemochromatosis, unspecif ied Diagnosis 11/11/2020 08:22:00 AM [facility] K86.89 Other specified diseases of pancreas Oth er specified diseases of pancreas Diagnosis 10/28/2020 07:02:00 AM [facility] U07.1 COVID-19 COVID-19 Diagnosis 10/24/2020 11:08:28 AM [facility] K8590 Acute pancreatitis without necrosis or i nfection, unspecified Acute pancreatitis without necrosis or infection, unspecified Diagnosis 10/08/2020 09:07:00 AM [facility] 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 hypoglyc emic drugs correction (current) use of oral hypoglycemic drugs Diagnosis 09/29/2020 10:10:00 AM [facility] [id number] Personal history of nicotine dependence Personal history of nicotine dependence Diagnosis 09/29/2020 10:10:00 AM [facility] I10 Essential (primary) hypertension Essential (primary) h ypertension Diagnosis 09/29/2020 10:10:00 AM [facility] E785 Hyperlipidemia, unspecified Hyperlipidemia, unspecifie d Diagnosis 09/29/2020 10:10:00 AM [facility] K831 Obstruction of bile duct Obstruction of bile duct Diag nosis 09/29/2020 10:10:00 AM [facility] N3000 Acute cystitis without hematuria Acute cystitis without hematuria Diagnosis 09/29/2020 10:10:00 AM [facility] B179 Acute viral hepatitis, unspecified Acute viral h epatitis, unspecified Diagnosis 09/29/2020 10:10:00 AM [facility] K8510 Biliary acute pancreatitis without necro sis or infection Biliary acute pancreatitis without necrosis or infection Diagnosis 09/29/2020 10:10: 00 AM [facility] R1084 Generalized abdominal pain Generalized abdominal pain Diagnosis 09/29/2020 10:10:00 AM [facility] I43 Cardiomyopathy in diseases classified el sewhere Cardiomyopathy in diseases classified elsewhere Diagnosis 08/27/2020 08:24:00 AM [facility] D696 Thrombocytopenia, unspecified Thrombocytopenia, unspec ified Diagnosis 08/27/2020 08:24:00 AM [facility] P66118 Decreased white blood cell count, unspec ified Decreased white blood cell count, unspecified Diagnosis [facility] Encounter for surgical after care following surgery on the skin and subcutaneous tissue Encounter for surgical aftercare followi ng surgery on the skin and subcutaneous tissue Diagnosis 08/01/2020 08:44:00 AM [facility] Z23 Encounter for immunization Encounter for immunization Diagnosis 07/25/2020 08:26:00 AM [facility] A54925 Cutaneous abscess of right axilla Cutaneous absc ess of right axilla Diagnosis 07/25/2020 08:26:00 AM [facility] K37941 Cutaneous abscess of chest wall Cutaneous absces s of chest wall Diagnosis 07/17/2020 08:48:00 AM [facility] K7689 Other specified diseases of liver Other specifie d diseases of liver Diagnosis 06/25/2020 07:05:00 AM [facility] Surgeries/Procedures Procedure Description Date Indications Data Source(s) GLUC BLD GLUC MNTR DEV CLEARED FDA SPEC HOME USE POCT GLUCOSE Routine 10/28/2020 7:29 AM EST 10/28/2020 12:29:00 PM EST [facility] Endo W/Eus & Fna (Stomach) 10/28/2020 12:00:00 AM EST [facility] ([facility]) ECG ROUTINE ECG W/LEAST 12 LDS TRCG ONLY W/O I&R ECG 12-LEAD Routine 10/24/2020 8:50 AM EST Other specified diseases of pancreas 10/24/2020 01:50:11 PM EST Other specified diseases of pancreas [facility] Other specified diseases of pancreas HEMOGLOBIN GLYCOSYLATED A1C HEMOGLOBIN A1C Routine 10/24/2020 8:45 AM EST Other specified diseases of pancreas 10/24/2020 01:45:00 PM EST Other specified diseases of pancreas [facility] Other specified diseases of pancreas BASIC METABOLIC PANEL CALCIUM TOTAL BASIC METABOLIC PANEL Routi ne 10/24/2020 8:45 AM EST Other specified diseases of pancreas 10/24/2020 01:45:00 PM EST Other specified diseases of pancreas [facility] Other specified diseases of pancreas I & D Abscess Simple 07/17/2020 12:00:00 AM EDT [facility] ([facility]) Results ID Date Data Source [id number] 12/11/2020 03:48:42 PM EST [facility] Name Value Range Interpretation Code Description Data Valentina rce(s) Supporting Document(s) Progress Note [facility] YLSOLi0oLkUGGmNr98/LJUhqXHOrv4OgJQpyNPs9EWfpHNDvO3WnOQB9aP6cCYG5SCdWGuTmLeEfEpMw m [file] ICAgICAgICAgICAgICAgICAgICAgICAgICAgICAgIC AgICAgICAgICAgICAgICAgICAgICAgICAgICAgICAgICAgICAgICAgICAgICAgICAgICAgICAgICAgIC AgICAgDQogICAgICAgICAgICAgICAgICAgICAgICAgICAgICAgICAgICAgICAgICAgICAgICAgICAgIC AgICAgICAgICAgICAgICAgICAgICAgICAgICAgICAg ICAgICAgICAgICAgICAgDQogICAgICAgICAgICAgICAgICAgICAgICAgICAgICAgICAgICAgICAgICAg ICAgICAgICAgICAgICAgICAgICAgICAgICAgICAgICAgICAgICAgICAgICAgICAgICAgICAgICAgDQog ICAgICAgICAgICAgICAgICAgICAgICAgICAgICAgIC AgICAgICAgICAgICAgICAgICAgICAgICAgICAgICAgICAgICAgICAgICAgICAgICAgICAgICAgICAgIC AgICAgICAgDQogICAgICAgICAgICAgICAgICAgICAgICAgICAgICAgICAgICAgICAgICAgICAgICAgIC AgICAgICAgICAgICAgICAgICAgICAgICAgICAgICAg ICAgICAgICAgICAgICAgICAgDQogICAgICAgICAgICAgICAgICAgICAgICAgICAgICAgICAgICAgICAg ICAgICAgICAgICAgICAgICAgICAgICAgICAgICAgICAgICAgICAgICAgICAgICAgICAgICAgICAgICAg DQogICAgICAgICAgICAgICAgICAgICAgICAgICAgIC AgICAgICAgICAgICAgICAgICAgICAgICAgICAgICAgICAgICAgICAgICAgICAgICAgICAgICAgICAgIC AgICAgICAgICAgDQogICAgICAgICAgICAgICAgICAgICAgICAgICAgICAgICAgICAgICAgICAgICAgIC AgICAgICAgICAgICAgICAgICAgICAgICAgICAgICAg ICAgICAgICAgICAgICAgICAgICAgDQogICAgICAgICAgICAgICAgICAgICAgICAgICAgICAgICAgICAg ICAgICAgICAgICAgICAgICAgICAgICAgICAgICAgICAgICAgICAgICAgICAgICAgICAgICAgICAgICAg ICAgDQogICAgICAgICAgICAgICAgICAgICAgICAgIC AgICAgICAgICAgICAgICAgICAgICAgICAgICAgICAgICAgICAgICAgICAgICAgICAgICAgICAgICAgIC NpLHEfEYJcGMCwYUFfIAc0U0gyHHGdNMKsKY8lQGx8Nz2+IRxDQsBnDZB2ioXyuI9XEF1gd3BgNPrnTR Qtf9IwVLn3QV4BFCMmTAdzEB1WBKhkqb8IUGJsNWWe aUNTn7gfGtTiDGX1NZGuXxatBK8IKADmX1lkvnMzYSCpAXCGLQkeMBLSYTjbPVPAOB8KOeAjU0VlwT37 IDMNCj4+FVvbruFpWwtCGpTaAPGux9RtNEa9NQ0QQLWeIlnlc4GwAiZpCOVXGKmpAX0YDNG9TIB6FEJv Jk6IIOAfV540oiTeIZ4TJu4OEnUoZC5sft8DNwFoFU QhSwbVCsg6MUrmFT3LbCDvVXjRkv4vakPpmiXUy9AhilStsMXQGHYzWWGdPXHnoUItFT0BWAS2LOOqZs 2zOVIcMKDeFkTwKXGWLM0BVMFoRLSnqAEjYKFuJGYYKG5FKYaiROG5IWTgxcRmySDxAVsuAX4EOQSnum QgMjMgMCBSDQo+Ub9TCD7vb6CaFIfpZUHjJW2kuw9H IVdCEpQhA6O9dOInD6J6PChoWc5MJRDeHRDoDqUeCVJAGQvfOQ7XFK1houI4TA7IcEUuRWGpYZSgbMQz QLc4E32iwMZoQPnbZV4UTWG+Rigoberto+Qp8AVNHuOKGnKUAyBrMiHUYHLuJgU4ZyW0LJh7XjA9BnSY26zBfk kbOhLUtzHO2OIS6eGCYcXGYESK4JvQDsjG5qlxVuHj KmNNBOGnJvI99vkFZyALTcPWYhSNYhGx7RVTYgA7JqxuVjqRqojuOdWGYeMAHJTF0VSXuikxEtrWBscR baPE47zQxbWG7MYr8AQeUzCR1rrx8YsNAvTo0HWXPuSv8FAJCkWJQvBTKtXFH9FRFiYsAvVVvtVBPhIW KcBII0ZERmPERmWP1TFpOpEHXzMvW2HRupYTHzLUXc eu2EJLIyVUOgXHMnKSNxXPMfVJFmSQosLSItVMTxJRV1SRNtREMuGW9RIaJqVTAlAJFnKIltNFCgIHEa if3ORZEmAGHdETDyRsSvQKEfSGSzZDdhADHoCZU9HsnoLHGhINHhLP6NCrMyTDMrGLy6LDGkQYFeHVHt dr1RZXRyNUKhTFMwQKNyNJLuAAVxPPeaGQWbAMJ8Gl OqPYDzVQFqNZ7AXhDgUSMmYGu0HBErULJrYKWkaa3SNSYtRHBfRTk8MSSvVXGbWUCdJPjzGUGuGYDyPJ TiELRhHTCoAF0TCiMuZZKwJYWnBkTzPXMoTRAytw1VPQXpAUEpVRUoYwLyLLVxDTOoRQbmJXDsFTOpLD SzDZIvTMCdWG2UPzUyAQPlFwB4BaApKBBoVQBduq0M XNRkNJOkRwL2XzQgNBGkMDKdSNcuFTHsFKFzPdwnGFRpISBbDZ1IXtZfKRYmXtE5SaXcGAKmMAPneh0N OONeMGEfScC4ZkThPTBeSRFqMJgzVSSmWXY5CFp5JDDtXGBvBX6KWgQoAPUfQaE8GiyxQQPoNVApmu9R FIKdXVBrLLB8LMYhDTBuTJBpOPkiYGStONO3BmQ0UY OfUMQgGW7DCbDdWBmcGLOARqn5IVmsU8e9REApBv0UQ0Adz2YzGaVyRPFZXMyxIG4bfgAhWHKhYo6SI5 gKGni3IaT5PETmCUCjTJExGJTtTOMdLdIaHGX2SCY3MBB7FI0pMRZwIJExWEG6HXT1SHJvKFNyBSMgS1 Q4WGrxSGS3FmmmCvRbXL9ATx6NDyU7CVW5rTFwYr1PHaY2BRfPKxWvYT1YSWi= ID Date Data Source [id number] 12/05/2020 12:24:[address] [facility] [place] Name Value Range Interpretation Code Description Data Valentina rce(s) Supporting Document(s) Progress Note [facility] MDEMLo3oUvAJVlNv64/WRLloYTHgw3XdDKovVWr8CUbeMAJtG3XvFEY8gF2oOKJ7MVuDSjAhTtHiOGB3 lbm [file] 4LGTICV0IVKu== ID Date Data Source [id number] 12/02/2020 05:49:00 PM EST [facility] ([facility]) Name Value Range Interpretation Code Description Data Valentina rce(s) Supporting Document(s) Influenza virus A RNA [Presence] in Unsp ecified specimen by Probe and target amplification method Laboratory test result [facility] ([facility]) Influenza virus B RNA [Presence] in Unsp ecified specimen by Probe and target amplification method Laboratory test result [facility] ([facility]) ID Date Data Source [id number] 12/02/2020 05:19:00 PM EST [facility] ([facility]) Name Value Range Interpretation Code Description Data Valentina rce(s) Supporting Document(s) Sars-CoV-2, Susu Laboratory test result Abnormal (applies to non-numeric results) [facility] ([facility]) This nucleic acid amplification test was developed and its performance characteristics determined by [facility]. Nucleic acid amplification tests include RT-PCR and [...] finding (navigational concept) Laboratory test result [facility] ([facility]) ID Date Data Source [id number] 12/02/2020 05:19:00 PM EST [facility] Name Value Range Interpretation Code Description Data [facility](s) Supporting Document(s) SARS coronavirus 2 RNA Detected [facility] This lab was ordered by [facility] Matteo morataya and reported by [employer]. ID Date Data Source [id number] 12/04/2020 04:08:00 PM EST [facility] Name Value Range Interpretation Code Description Data [facility](s) Supporting Document(s) SARS-CoV-2, SUSU Detected Not Detected [facility] This nucleic acid amplification test was developed and its performancecharacteristics determined by [facility]. Nucleic acidamplification tests include RT-PCR and TMA. [...] assay. ORDER COVID 19 2 DAY YES [facility] ID Date Data Source [id number] 12/02/2020 05:19:00 PM EST [facility] ([facility]) Name Value Range Interpretation Code Description Data Valentina rce(s) Supporting Document(s) Laboratory test finding (navigational concept) Laboratory [facility] result [facility] ID Date Data Source [id number] 11/26/2020 02:33:[address] [facility] [place] Name Value Range Interpretation Code Description Data Valentina rce(s) Supporting Document(s) Progress Note [facility] AEFOCb1sCoFIWsVm60/NSUnsRYTjb9BpNReqWUp4DKfdRRVdV6RnWKA2mQ5fCVR6AHqJMlLzNlUkOVG3 [facility] [file] AgICAgICAgICAgICAgICAgICAgICAgICAgICAgICAg ICAgICAgICAgICAgICAgICAgDQogICAgICAgICAgICAgICAgICAgICAgICAgICAgICAgICAgICAgICAg ICAgICAgICAgICAgICAgICAgICAgICAgICAgICAgICAgICAgICAgICAgICAgICAgICAgICAgICAgICAg DQogICAgICAgICAgICAgICAgICAgICAgICAgICAgIC AgICAgICAgICAgICAgICAgICAgICAgICAgICAgICAgICAgICAgICAgICAgICAgICAgICAgICAgICAgIC AgICAgICAgICAgDQogICAgICAgICAgICAgICAgICAgICAgICAgICAgICAgICAgICAgICAgICAgICAgIC AgICAgICAgICAgICAgICAgICAgICAgICAgICAgICAg ICAgICAgICAgICAgICAgICAgICAgDQogICAgICAgICAgICAgICAgICAgICAgICAgICAgICAgICAgICAg ICAgICAgICAgICAgICAgICAgICAgICAgICAgICAgICAgICAgICAgICAgICAgICAgICAgICAgICAgICAg ICAgDQogICAgICAgICAgICAgICAgICAgICAgICAgIC AgICAgICAgICAgICAgICAgICAgICAgICAgICAgICAgICAgICAgICAgICAgICAgICAgICAgICAgICAgIC AgICAgICAgICAgICAgDQogICAgICAgICAgICAgICAgICAgICAgICAgICAgICAgICAgICAgICAgICAgIC AgICAgICAgICAgICAgICAgICAgICAgICAgICAgICAg ICAgICAgICAgICAgICAgICAgICAgICAgDQogICAgICAgICAgICAgICAgICAgICAgICAgICAgICAgICAg ICAgICAgICAgICAgICAgICAgICAgICAgICAgICAgICAgICAgICAgICAgICAgICAgICAgICAgICAgICAg ICAgICAgDQogICAgICAgICAgICAgICAgICAgICAgIC AgICAgICAgICAgICAgICAgICAgICAgICAgICAgICAgICAgICAgICAgICAgICAgICAgICAgICAgICAgIC AgICAgICAgICAgICAgICAgDQogICAgICAgICAgICAgICAgICAgICAgICAgICAgICAgICAgICAgICAgIC AgICAgICAgICAgICAgICAgICAgICAgICAgICAgICAg UJQaGDCxXFTnZMZnPYNtTUIoETSdBQCwLGIqPXz2I3fiZOBjASRcMG4iTCa1Uu4+NCrNIhDwOHW1ieNz aX6RLG7gp9PnZTzrJBCaz0DpQDb0KL9BTQMvQVpvYN2OFTtyqp3SSRUkYUNdvBEBa2eoCaAkYWP3NZPb LwzyAK5RUCOcW3hphlZtJRWsEQGBDJbjIZOKZPIzHH UpPdLrEaTgBJNbRXOgXJJRDJT0TRJzGrDeJMitOD7Za9IhlLJ5XJe+Hp5LKD2db0HaNEm4LTOiUT2uvb 2CEGtAPqOoB9JrssT4MOEsOXVxUw6AVJHmKVIggSY9YYMvMUFPOjHmE5HkiT22JELWGz2+DQplbmRvYm lTAzZtLATyj5QsVUr9CV2PWAHaNGq4nOZsARDlR5Mu q3RuEy59YAErAoarT9qlyndsSOqkEN8okmemCPHQKLTYoRYxWBJwUU2wIF4kPHWcSBDkOhYnGRHAAC9A XAMeFTKquHBgTEExKHXDON0VZRosDEE8GJOvjvJnuRXlTZokZY0RAOYkrjDxEFtpSSPPUDk+Na2EYA5k k1YoFPd4LAPvy0EqCJi0CC2QZBIkDMgwMXQlRF5ep0 KeO3N4DaP0nDKqX5wmqbdhC4HjktXfykOvRCYlSULjPF3UIT9ONU1HJBBzJOpuZJ0NCFV6BTd0IvY8FM tsBFLrEXP5Ii3aAPsrIO4TYFt2X1ZfS6FQWOWoEZRTIUThuCB0LTRZQz4XA0DMMmzBBGJQIm7HZoIfR8 DWD2lNB09PVJ3VTJA+PiANCj4+DQplbmRvYmoNCjUx ZXNdc0VpNIj3HO7KHCRfLXwgSV6HTDVkuT4bZObrPY7BAnE8LvFsXBUIAzKsM23xsHRrDPy4F2DhRsVg ZGVkRmlsZXMgPDwvTmFtZXMgWyBdDQogID4+ID4+VYreYO4TGGqvhgHuNAYjFz2IXMLlFJVpRC5fKKMt WXDfL7N9lLuxOJHUWoUoU8ikxsndHN4iQARdI381tL hpxzGrHDN8DWCmWy7AWUMnWXT5VIVzcKJiMFezYLHLUYjuUX8UwLSeAPX6kY9qSUffWPPcZVWtS2lATk KmeUhnRK33nFxjytCxzYWnNYb+Sy0DMW2xn0VsSDi8fzQeRMofNNCyXGfyFUGyQFAyBDBzBOO6WWX2FR YBMnRjKJNrMOKvRVozLWKvQXWufe9CNATaDVI2NJZ9 JgDeFOKfOJCxIDmyWLHzTIuuUXq1UIXtZECvRK4KIjWsKDHnNLCaTBnkHLHvAXGekw2NGYItJLNtYUN9 LgIkMHRaVFTlUZqpBSIqSAJ8DAB2XHUdAEBqRK1TAvOwATQbWYhkGVHjXVVjFAOgot9XODEnEOY4Bgk5 UgAwPGRtTZXsPJxvRJXbNWR4XZIaBTPiBSEwZE1DKb McNYZtYIT3HERdOSXrGRZbka1RXAIzZTGbJxV4SFLzGAJoYPEwXUbyBXJaRXC8KIPwPMDrXMGrRC5HTs ZpUMPzDBe4NPqrDPKcFESqve5AUQCzGVBiQNN7PVQpTAYgLQQgNYypHEAjKXM9FhZ9VHJnAOEcXD0ZLi EtYFLvMkx8AxQoZHNkUUTios5BHDToBEWwPCR7UaEr WUOvOGFsBPhoLPCkSYJ7UZQ4OSQyFXYaIW4JBkDcNTIxZjbwQhCtFJRcUFXgpz9VWVEgDLHcJSQgLuZv AFQpADWtWVcmSWFgVUIlRjk6RLXnTOJcGB8PLoAzYETdYyM6QyqwXWVdZNUhsm2BWYNdJSFoPZy4HeTe BCTfWAHiIGjkCHObTYLnPTK3WBNqYHYdDT2NUoHyRO AdKyY5FMpjFBVyWCFlgf4VIYGeJSG7AVz8BWMqNNKjYHHzUTllZKDrFZAaBjPxJIMlRDEeAN4XCwLlZG UfQzW6ECDsVLKlFXVlzu5HHSSjWYH4Atw7GEKcLOCcWCGeQMgrROZdWEJaKIP3WGDkGGZxSF9EAoFhWG HmLtWpRAVyUSDbOLMico8GIJDlSKD8LFX3PSSmRFOn INPtRHboPCFhRRV3GtQiNKHjIZCwHK0INrAhUMQtXvY3WBIzVNSyWQIzcd8TRYFgXAW4DMA6XZAlPRUk KXEmJHfmEMDvHUD4Ydt0DHMgTDWgDZ2CMfZkXASeSrd1AESjHKOxXMPbjx8VDZXqJFS8PVE8AOTmMBHl LGNwPZekUKScTUpsYfd5XNHrHDMmUG8GIvWwDTZpKi EyJmYxPOYmEDKyhp1HZZOqNHA7ROSoSpBaERTnEXKvPJacTIAcONfiMkV2AOVsLRIqHK0FXuOcYXLtQL l0CXSnJFAnASIoax4KBOUhESA5SSz9XJNxIEOxYNHeCXddSIJpYUmfIIX4QXJlMOCqBL5QPpPoTLChXN E6SGZyFVHtVBHiot3QRTLrZPP8OEY4WBQiBHXdBZDy CHjySLCkKPxjHCF7IJJfOWRlBB8UFyVtENSfCWY1HKvoKSXzOJWhku1XJYRgHZX9SdV0AIHtEMQdTEMf ERdjVMQgFSerQYF6UPUmVAKbKX2KQgUpYByxOVVQJsx2ZAwuB9l2BWS7Me5IL8Ijg5CrYVXcAZCORGak BK5rrrJfOGOgWl7SY2pEHrg6Fxm9LzM4LhKzDLMgPI LjRlIhF9CuAGUqI5EaCIP1XX7kFHzzDPVbIhnkSFKeHGQaApTfRFDfLWV5UVBxRoBrUTdoQxWuKH1UKz 6OUiC0TVT0bCJwOb9SCPWwPnPVEtUyKD8NMBb= ID Date Data Source [id number] 11/18/2020 02:06:[address] [facility] [place] Name Value Range Interpretation Code Description Data Valentina rce(s) Supporting Document(s) Progress Note [facility] GURQJz5lOiAMOxFd18/NHLnkOVUix0ZqIGlvLDl5DLqgUBKsG8RgCZN8aL1rUKH4BQqKEnEiMzYcVRLz lbm [file] AgICAgICAgICAgICAgICAgICAgICAgICAgICAgICAgICAgICAgICAgICAgICAgDQogICAgICAgICAgIC AgICAgICAgICAgICAgICAgICAgICAgICAgICAgICAg ICAgICAgICAgICAgICAgICAgICAgICAgICAgICAgICAgICAgICAgICAgICAgICAgICAgICAgICAgDQog ICAgICAgICAgICAgICAgICAgICAgICAgICAgICAgICAgICAgICAgICAgICAgICAgICAgICAgICAgICAg ICAgICAgICAgICAgICAgICAgICAgICAgICAgICAgIC AgICAgICAgDQogICAgICAgICAgICAgICAgICAgICAgICAgICAgICAgICAgICAgICAgICAgICAgICAgIC AgICAgICAgICAgICAgICAgICAgICAgICAgICAgICAgICAgICAgICAgICAgICAgICAgDQogICAgICAgIC AgICAgICAgICAgICAgICAgICAgICAgICAgICAgICAg ICAgICAgICAgICAgICAgICAgICAgICAgICAgICAgICAgICAgICAgICAgICAgICAgICAgICAgICAgICAg DQogICAgICAgICAgICAgICAgICAgICAgICAgICAgICAgICAgICAgICAgICAgICAgICAgICAgICAgICAg ICAgICAgICAgICAgICAgICAgICAgICAgICAgICAgIC AgICAgICAgICAgDQogICAgICAgICAgICAgICAgICAgICAgICAgICAgICAgICAgICAgICAgICAgICAgIC AgICAgICAgICAgICAgICAgICAgICAgICAgICAgICAgICAgICAgICAgICAgICAgICAgICAgDQogICAgIC AgICAgICAgICAgICAgICAgICAgICAgICAgICAgICAg ICAgICAgICAgICAgICAgICAgICAgICAgICAgICAgICAgICAgICAgICAgICAgICAgICAgICAgICAgICAg ICAgDQogICAgICAgICAgICAgICAgICAgICAgICAgICAgICAgICAgICAgICAgICAgICAgICAgICAgICAg ICAgICAgICAgICAgICAgICAgICAgICAgICAgICAgIC AgICAgICAgICAgICAgDQogICAgICAgICAgICAgICAgICAgICAgICAgICAgICAgICAgICAgICAgICAgIC VpAGJdHDDxOHFrUOUsCXJxLJKwBHYvYJGjQLSrCSAmYOLcMNJnGKXpTFZgQMYzFVVvGXZkSWZcAUy1Z9 tnDPVsKZKzLS1xGLj2Nl8+CQiSXbVxUOU1cjZymG8S SB2kf8SgTSgcHLVox0DrUMt9YG4JRHNoVNuzNE3LWPhgvd5FSXMgMKXmjEIHz4twUxUoRPT3UTCtMrms BG0OHMBbU3llztEvGQSfFUOKMTgrLADARSioAXWHKU1IYcTxE7IjkX35XGCPVg7+DQplbmRvYmoNCjMw WMExw3QqVQp0NX4MWFQtOmzwi9WcNdSqLZLAWGgzXE 3VANG2VHUzSPOdTp2RVZYzL885mmAaND2KJr9JTbXiNA2ooe0VSaOiPUWxEitAHem7ZLlkCM8XnUZuBN cDyj6ifcGqtlCUy2OtapKniQRRNHTaREQmYSQdjIUnAH9DTDI4SUNmAHYdFaAlZNIgTCtgUXHVCAwWPl SiM1Kkj8ApFyD1EXZjAgJnVOnxWFOnEjD6FA56lLkx LH9VRJXxWWTzNL56QEWeEOGkZf6VJe0UQcKaPH1big8SPQOiUEFiAykGRfj3WItqIV0ZrBVjRS0Qmr0t pQKgY0HkyIomABInLSwfhwRoEl5lZANlIIarVNEqDH4lR0szZ8xsP2CnWSYGRaAfU4OeS7WsVoSuMZE5 WABkRUWbUgEoJZFARdJvY0IeLMuxEpAhZRRBIE2BEl qcJZVnYupDSPwAM3SRBWsOHEFHTk5EM37LD62PASWZFZ7AS1nBPkfoLW7+MV0GYi9EAuRyGV9apm4GTb BgREZfVdhUBgq2DWmfGI3EtGNvS2WuqKUkp1cGEkQvD4GBGFB4WSOsRi8SCRQuJmQgJVKsZVhxSO3iSO TuMLTKvKpymxN9CE6NKK6gyvViDB6QKgBmSm5vMk8K QkHzU1BaU4CeRFOuVCDXTWqxJU2UTIjoFP3wUQ1Cc2QMmSRufQ2yzg4MINVxDENfUiibuu7WThllR2K0 aPniLGQrRbXzMNVTYGuhDX1XZGMxRSA5JWOrPIEbWIKWZfZwS01iBY0HR5Ywg67jNwF3IJQeNmFnGKys OP54qQlvjxOmeJUwmNdxJY0OUj4+DQplbmRvYmoNCn puHRJGJbUyQdDMTgJdRFXpTCMfVHMuUzI5MfHmQm4YIFWuLGSrNFXgBcJcJPSyEYHsTHlwTWPfGRN7GS KkOLGoIDWfHI0FPpKnKRCpZFB3UcLwIFOoOOYriw5RORCvPUUwEEK5OdOeCJGfFEKyJNuzFIRdJLEgEN MfCDOsSKUxGP3BLsNvGJEwYAL1UXmtFOKkLOAnjw8U XJGuTWYmExSzRYWwHJCsQDTiPXvtSEOxDMG9JSQ8JYPbZVZvBA6ZKkYjJCPhHFf0PvMqSCGrMGRzog4Y CZFwVZD3QbX7BFJzJCSqXKPmQNipXSSmKKY9LdF5QUHxPBSjNH5DTlSxNAKxXTwoZhStXKAtZWYxjs7N DOTkDBZwDLV8MaXuINErXOZgBDwzUJUzUVP5ZSO1ID UsCQXjJD2WYmTlAHVkMRJ4OYSnZJPnSEJvhw1BAWSvDPErJWzxSbTySJEqUKQrSLwuKXBqSIReCSz7DR BtNIYnOD2APvUeFUGoLhg9JtJsMZJvEUHkmp7ZNPQmTSN8OSB5QAYaTXSbTFAcGBepKEJtOCHpFQy1JE GgDBAmVE2RMcFpGWCyVGTjLmZaVZRzHQQtlp7AYKMp JLA5MGN8HTSmBHQpVOQwBRloIZAnQGIyAxYwYZIpGMSfRK3GCqBqWDBrJVT6GRObQCNuUMEvyu7KOOFk LGU8CpF2EQRaDWKeAZVzGJokNMBsXFNpKuXiJAMsRKGaRL4YGpZoHWVfXTM3HUBvUWBcRJHwaw9KXXQh YZM4Wal4WKLxKORnNBOiMDdyEEMpFFT3UWXqEQBxBI FbWG7QCfQqUJEaWDD6UiLxVYRpUGLwji9BCPLhYKU0DEi7MaHaLVDcPECtKZjeRUFcNJD5IpN0NKKiPZ ImOR0URjXaINrsJKRSZza6OAihD3k1CRTrTb7PN9Sig2XiBaSaTOKFEDxkEI5wdxQiCUQyQz2HM1oPKm nuAuZgLYKrGAPcGfYmPaEhGWMzVgYqIJWySGI0Y0U7 Ol3qLEKdGUT2RlUbGJQfNNMzF1R8VTE0IWGeTbYwUuWaQHTfUoKfRE1FTm2DQbI0IAY7gJZxYz4HMYR1 SOVPTeBaQW4HAPq= ID Date Data Source [id number] 11/18/2020 02:05:56 PM EST [facility] Name Value Range Interpretation Code Description Data Valentina rce(s) Supporting Document(s) Progress Note [facility] ABJMVn0mVfIATdXp28/WPFloMNOsp9RxQLgoUKz1MCroKCVyQ1IfVTV8zS0fRFF9NQfJFzZcIjYjNVHl lbm [file] VNImGBKxTJmwEzTpCU8IBg1TTlG8LIF2uQKwOa2DHjSdEiuUJqFeLT8AJVk= ID Date Data Source [id number]/18/2020 04:26:[address] [facility] [place] CYTOPATHOLOGY REPORTName: AIDAN ACUÑAMRN: [id number] Number: [id number] Date: 11/15/2020 00:00Received Date: 11/15/2020 12:24Physician(s): SANDRA HUBBARD MD DHIR, MASHAAL, MD Copy To:WIL COOMBSpeckeri(s) ReceivedA: PANCREATIC HEAD MASS, FINE NEEDLE ASPIRATION, CONSULTATION ([id number])10/28/2020Clinical History:50 year old male with a 4.5 cm pancreatic head mass and multiple livernodule. Pancreatic FNA performed 10/28/20, evaluated at [facility], submitted for consultation.DiagnosisPANCREATIC HEAD MASS, FINE NEEDLE ASPIRATION, CONSULTATION ([id number])10/28/2020: POSITIVE FOR MALIGNANCY, ADENOCARCINOMAComment/cts/calReviewing Cytotech: NICK Pereira(ASCP) [...] and synaptophysin./cts Gross DescriptionReceived 14 slides labeled "[id number], Aidan Acuña" with correspondingpathology report for consult from Laboratory [facility],[place] [address] .This report may include one or more immunohistochemical stain results thatuse analyte specific reagents. All positive and negative controls havebeen reviewed by the attending pathologist and are satisfactory. The testswere developed and their performance characteristics determined by [facility] Pathololgy department. They have not been cleared or approved by [place] Food and Drug Administration. The FDA has determined that suchclearance or approval is not necessary. Name Value Range Interpretation Code Description Data Valentina rce(s) Supporting Document(s) ID Date Data Source [id number] 10/28/2020 09:23:43 AM EST [facility] CenterPATIE NT INFORMATIONPatient MRN Name Date of Age Gend*PT [id number] Aidan Acuña 1970 50 years M OPPT Location Admission Date/Time [facility] ID [facility] [place] [facility] 0[facility] --- Ted Coombs DO([id number]) EPI ID CSN Admitting Provider [id number] Ted Coombs DO([id number])Endoscopic Gastroduodenoscopy with Endoscopic Ultrasound Procedure NotePatient: Aidan [...] ofintervening blood vessels. Using a 22 gauge [employer] Acquired EUSaspiration needle, two needle passes were made. Specimen was sent for cytologyand flow cytometry.Stom ach: Normal; no perigastric/gastrohepatic ligament adenopathy. Noperigastric fluid collection or ascitesHepatobiliary: Metallic wall stent in placedAmpulla: NormalLiver: Diffusely hyperechoic and has numerous small round (4-5 mm) hypoechoiclesionsSpecimens:ID Type Source Tests Collected by Time Destination1 : Pancreatic fluid for interpace testing Pancreatic Fluid [facility]NA MISCELLANEOUSLAB TEST Ted DO [place] 10/28/2020 0847A : Tissue FNA [facility] CYTOLOGY, LEUKEMIA / LYMPHOMA PHENOTYPE, SURGICAL PATHOLOGYEXAM Ted CoombsDO 10/28/2020 0848B : Tissue Biopsy SURGICAL PATHOLOGY EXAM Ted CoombsDO 10/28/2020 0847Complications: None; patient tolerated the procedure well.Estimated Blood Loss: noneJogiuseppe CoombsDO10/28/20209:05 AM Name Value Range Interpretation Code Description Data Valentina rce(s) Supporting Document(s) ID Date Data Source [id number] 10/30/2020 11:20:51 AM EST [facility] [place] Name Value Range Interpretation Code Description Data Valentina rce(s) Supporting Document(s) SOURCE (RESOE) [facility] [place] [facility] [place] PANCREATIC HEAD MASS RESULT [facility] [place] [facility] [place] PERFORMING LAB [facility] [place] [facility] [place] [address] [place] [address] ID Date Data Source [id number] 10/28/2020 08:15:18 AM EST [facility] NT INFORMATIONPatient MRN Name Date of Age Gend*PT [id number] Aidan Acuña 1970 50 years M OPPT Location Admission Date/Time Visit ID Attending ProviderEndo [place] 10/28/20 0702 --- Ted Coombs DO([id number]) EPI ID CSN Admitting Provider [id number] Ted Coombs DO([id number])HISTORY AND PHYSICALGail L DowningMRN: [id number]: Bile duct stricturePLAN:1. Proceed with EUS exam [...] Take 1 tablet by mouth daily 10/27/2020 [id number] gabapentin (NEURONTIN) 100 MG capsule Take 100 [...] Take 15 mg by mouth daily 10/27/2020 [id number] Medical History:Past Medical History:Diagnosis Date Asthma Diabetes [...] rigidityor rebound tenderness. No pulsatile masses present.Signature: Ted AMBIKA Coombsate: October 28, 2020Time: 8:13 AM Name Value Range Interpretation Code Description Data [facility](s) Supporting Document(s) ID Date Data Source [id number] 10/28/2020 07:40:41 AM EST [facility] [place] [facility] Name Value Range Interpretation Code Description Data Valentina rce(s) Supporting Document(s) POC NOVA GLU 202 mg/dL (70-99) H [facility] PERFORMED BY [facility] CLINICAL STAFF ID Date Data Source [id number] 10/31/2020 05:49:51 PM EST [place] [id number]# MISCELLANEOUS CYTOLOGY REPORTAccession Number: [id number] of Specimen(s): A: Pancreas Mass Aspirate Head [...] by immunostaining for cytokeratin AE1/3, cytokeratin 19 ooiBM97-3. A mucin stain highlights a rare mucin vacuole. Theneuroendocrine markers synaptophysin and chromogranin are negative. Processed and screened at [facility],Cytology, [address] [place] [address], [facility].As applicable, positive and negative controls for all immunohistochemicaland/or special stains were reviewed and considered appropria te. Reported: 10/31/2020Electronically Signed Out By Jamey Tam MDCalvary Hospital PatholoCytotechnologist: Dennise Moffett CT(ASCP)[facility]mwgICD code: K87CPT code: A: 48181D, 32298T, 92610w, 23770(4), 31722S Name Value Range Interpretation Code Description Data Valentina rce(s) Supporting Document(s) ID Date Data Source [id number] 10/24/2020 11:03:20 AM EST [facility] Name Value Range Interpretation Code Description Data Valentina rce(s) Supporting Document(s) EKG [facility] [id number] jb2 [file] gFXqbKA8D+probation officer+[id number] [file] [id number]== ID Date Data Source [id number] 10/26/2020 01:37:45 PM EST [facility] [place] [facility] Name Value Range Interpretation Code Description Data Valentina rce(s) Supporting Document(s) SARS-COV-2 SUSU [facility] [place] Reference range: NOT DETECTED The refere nce [...] specimens were analyzed for COVID-19 using rev fgzk-hilpebrloppay-Epme time PCR (body and frame man-PCR) using primer and probe sequences validated by [...] on January 06, 2020. FIRST TEST [facility] [place] [facility] [place] [facility] IN [facility] [place] SYMPTOMATIC [facility] [place] [facility] [place] DATE OF SYMPT ONSET [facility] [place] [place] [facility] [place] HOSPITALIZED [facility] [place] [facility] [place] [facility] [place] [facility] [place] CONGREGATE CARE SET [facility] [place] [facility] [place] [facility] [place] [facility] [place] ID Date Data Source [id number] 10/24/2020 09:05:00 AM EST [facility] Name Value Range Interpretation Code Description Data Valentina rce(s) Supporting Document(s) SARS coronavirus 2 RNA [Presence] in Res piratory specimen by SUSU with probe detection [facility] This lab was ordered by Kaden patel of [place] and reported by [employer]. ID Date Data Source [id number] 10/24/2020 12:56:45 PM EST [facility] [place] [facility] [place] Name Value Range Interpretation Code Description Data Valentina rce(s) Supporting Document(s) HEMOGLOBIN A1C @ 8.4 % (4.0-6.0) H [facility] [place] [facility] [place] Performed using Siemens [place] immunoassa y.Care must be taken when interpreting LsB6beuzvlfz in patients with a hemoglobin variantor decreased erythrocyte lifespan. Values 5.7 - 6.4% suggest prediabetes.Values >=6.5% are diagnostic for diabetes.REFERENCE: DIABETES CARE 2018: 41(S13-S27). EST AVERAGE GLUCOSE 194 mg/dL [facility] [place] [facility] [place] ID Date Data Source [id number] 10/24/2020 12:07:53 PM EST [facility] [place] [facility] [place] Name Value Range Interpretation Code Description Data Valentina rce(s) Supporting Document(s) SODIUM 140 mmol/L (136-145) [facility] [place] [facility] [place] POTASSIUM 3.8 mmol/L (3.6-5.2) [facility] [place] [facility] [place] CHLORIDE 106 mmol/L (100-108) [facility] [place] [facility] [place] CO2 25 mmol/L (22-31) [facility] [place] [facility] [place] ANION GAP 9 mmol/L (7-16) [facility] [place] [facility] [place] UREA NITROGEN 8 mg/dL (7-24) [facility] [place] [facility] [place] CREATININE 0.66 mg/dL (0.80-1.30) L [facility] [place] [facility] BUN/CREAT RATIO 12.1 RATIO (10.0-20.0) [facility] GLUCOSE 186 mg/dL (70-99) [facility] [place] CALCIUM 8.6 mg/dL (8.4-10.2) [facility] GFR >60 ml/min/1.73m2 (>59) [facility] GFR ( AMER) >60 ml/min/1.73m2 (>59) [facility] GFR INTERPRETATION [facility] --NORMAL KIDNEY FUNCTION OR MILD DISEASE - GFR >OR= 60CHRONIC KIDNEY DISEASE - GFR 15 - 59RENAL FAILURE - GFR <15 Est. GFR calculation based on the MDRDstudy equation, which assumes a steadystate for creatinine. Est. GFR should notbe used for medication dosing. ID Date Data Source [id number] 10/24/2020 08:43:31 AM EST [facility] NT INFORMATIONPatient MRN Name Date of Age Gend*PT [id number] Aidan Acuña 1970 50 years M OPPT Location Admission Date/Time Visit ID Attending Provider --- --- --- Ted Coombs DO([id number]) EPI ID CSN Admitting Provider [id number] ---OUTPATIENT / OBSERVATIONAL SURGICAL OR INVASIVE PROCEDUREName: Aidan Acuña : 1970 Sex: male Care Provider: Radha Forman Physician: Dr. CoombsHISOCHOA OF PRESENT ILLNESS: Mr Acuña is a [...] thyromegaly. No carotid bruits.MENTAL / NEUROLOGICAL STATUS: [id number]: Clear to auscultation. No wheezes, rhonchi or [...] parts of this document, were dictated using [facility] software. A reasonable attempt at proofreading has beenmade to minimize errors. Please call with any questions or corrections.* Name Value Range Interpretation Code Description Data Valentina rce(s) Supporting Document(s) ID Date Data Source [id number] 10/11/2020 05:39:[address] [facility] [place] Surgical Pathology ReportName: AIDAN ACUÑAMRN: [id number] Number: [id number] Date: 10/09/2020 00:00Received Date: 10/09/2020 12:44Physician(s): KARON VENTURA MD VYAS, SHIKHAR G, MDSpeckeri(s) ReceivedA: Material received for consultation DZClinical HistorySecond opinion.DiagnosisOUTSIDE CASE [id number], 10/02/20:DUODENUM, EROSIONS, BIOPSY: MUCOSAL EROSIONS WITH FOCI OF ATYPICALGLANDS. (See Microscopic Description).Electronically Signed By Isaac Dobbins M.D., Attending Ygirryozkoc28/4/2020 17:39:48 Gross DescriptionReceived from [facility] [place], [place], are 1 H and Estained slide and 1 paraffin block, labeled [id number], with thecorresponding pathology report. Also received: Report of Operation, dated 10/02/2020.Microscopic DescriptionSections show duodenal mucosa with foci of mildly atypical glandssurrounded by clefting. [facility] areas of mucosal erosion. [facility] for CD31 and D2-40 do not show [...] developed and their performance characteristics determined by [facility] Pathology department. They have not been cleared or approved by the USFood and Drug Administration. The FDA has determined that such clearanceor approval is not necessary. Name Value Range Interpretation Code Description Data Valentina rce(s) Supporting Document(s) ID Date Data Source [id number] 09/29/2020 10:10:00 AM EST [facility] 1 OrderSheet [facility] Emergency Department [address] [place] [address] Phone #: ext- [phone] 09/29/2020 10:06 Patient: AIDAN ACUÑA Sex: M : 1970 Age: 50yWEIGHT:136.0 kg (S) HEIGHT:69 inches (S) BMI:44.3ALLERGIES: No Known Drug AllergyCHIEF COMPLAINT: abdominal pain, vomiting, nausea, crampsDIAGNOSIS: Urinary tract infectious disease, Pancreatitis, Inflammatory disease of liverLAB ORDERSOrder Description Priority Entered Acknowledged InitialedUrinalysis (Clean STAT 10:32 09/29/2020 12:15 [place]opaCatch) [facility] hardware sales assistant, [place] ER Physician; Cbgm8Nagqlhuw-W STAT 10:32 09/29/2020 10:33 [facility] hardware sales assistant, [place] ER Physician; Smdw5Fhpkuf STAT 10:32 09/29/2020 10:33 [facility] hardware sales assistant, [place] ER Physician; Txut9Yxgcbl Acid STAT 10:32 09/29/2020 10:33 [facility] hardware sales assistant, [place] ER Physician; Hren2NVL STAT 10:32 09/29/2020 10:33 [facility] hardware sales assistant, [place] ER Physician; Azha7VI/INR STAT 10:32 09/29/2020 10:33 [facility] hardware sales assistant, [place] ER Physician; Unlp3LSQ STAT 10:32 09/29/2020 10:33 [facility] hardware sales assistant, [place] ER Physician; Nfqk9VKS w Diff STAT 10:32 09/29/2020 10:33 [facility] ED Te ch, [place] ER Physician; Fwli6NLL STAT 10:32 09/29/2020 10:33 [facility] hardware sales assistant, [place] ER Physician; Kfgw5Npfnunw, Urine STAT 10:32 09/29/2020 12:15 [place](Urine, Clean [facility] hardware sales assistant, [place] ERCatch) Physician; Tech1 2 OrderSheet [facility] Emergency Department [address] [place] [address] Phone #: ext- [phone] 09/29/2020 10:06 [id number] Sex: M : 1970 Age: 50yDIAGNOSTIC STUDY [...] 13:33 09/29/2020 14:04 Loraine(1gm/50mL) IVPB Tai Horta [id number] mg with Physician;Dextrose 50 mlspike bag (D5W)Morphine IVP 2 mg 13:48 09/29/2020 14:05 Loraine(NOW, HIGH ALERT Tai Horta RNMEDICATION) Physician;GENERAL ORDERSOrder Description Priority Entered Acknowledged Initialed 3 OrderSheet [facility] Emergency Department [address] [place] [address] Phone #: ext- [phone] 09/29/2020 10:06 Patient: AIDAN ACUÑA Sex: M : 1970 Age: 50yCardiac Monitor 10:32 09/29/2020 10:33 Marie(continuous) Tai Schaefer hardware sales assistantShadiPorfirio ER Physician; Cbui4ZLP 10:32 09/29/2020 10:33 Marie Schaefer hardware sales assistantShadiPorfirio ER Physician; Rule2Xbtjte Lock 10:32 09/29/2020 10:33 Loraine Horta RN Physician;Pulse oximeter 10:32 09/29/2020 10:33 Marie(Spot Check) [facility]; Tech1[Electronically signed by Loraine Horta RN (14:28 09/29/2020)][Electronically signed by Tai Schaefer Physician (20:11 )][Electronically locked by Loraine Horta RN (14:09/29/2020)] Name Value Range Interpretation Code Description Data Valentina rce(s) Supporting Document(s) ID Date Data Source [id number] 09/29/2020 10:10:00 AM EST [facility] 1 Medication Reconciliation Report [facility] Emergency Department [address] [place] [address] Phone #: ivk- [phone] 09/29/2020 10:06 Patient: AIDAN ACUÑA Sex: M [...] 09/29/2020 1:43:00 PM 2 Medication Reconciliation Report [facility] Emergency Department [address] [place] [address] Phone #: ext- [phone] 09/29/2020 10:06 Patient: AIDAN ACUÑA Sex: M : 1970 Age: 50yMorphine [IVP] IVP 2 mg diluted in NS 10 mL, administered: 09/29/2020 1:43:00 PMIV NS IV Fluids bolus 0, then 125 mL/hr, administered: 09/29/2020 12:34:00 PMThe following Medications were prescribed to the patient:None. Name Value Range Interpretation Code Description Data Valentina rce(s) Supporting Document(s) ID Date Data Source [id number] 09/29/2020 10:10:00 AM EST [facility] 1 Medication Administration Record [facility] Emergency Department [address] [place] [address] Phone #: [phone]- [phone] 09/29/2020 10:06 Patient: AIDAN ACUÑA Sex: M : 1970 Age: 50yWeight: 136.0 kgHeight/Length: 69 inBMI: 44.3ALLERGIES: No Known Drug Allergy Date/Time Medication Administered Medication OrderedStart IV NS IV NS : Bolus 1000 mL, then 80080:42 09/29/2020 Dose: IV Fluids mL/hr (can be titrated Víctor Horta RN Rate: 1000 mL/hr over 1 hour(s) additional physician instruction)---- Bolus: 1000 mL over 1 hour(s)Stop Dispensed: 1000 mL bag12:34 09/29/2020 Site: #1 left forearmTariq Henderson IV NS IV NS : Bolus 1000 mL, then 84073:34 09/29/2020 Dose: IV Fluids mL/hr (can be titrated Víctor Horta RN Rate: 125 mL/hr over 8 hour(s) additional physician instruction)---- Dispensed: 1000 mL bagContinued Upon Transfer Site: #1 left aqjxzdp52:17 09/29/2020Tariq Henderson PROTONIX [IVPB] (PANTOPRAZOLE Protonix IVPB [...] forearmStart ROCEPHIN (1GM/50ML) [IVPB] Rocephin (1gm/50mL) IVPB 696237:43 09/29/2020 (CEFTRIAXONE SODIUM) mg with Dextrose 50 ml spike Bernardo Horta RN Dose: 1 gm IVPB (D5W)---- Rate: 100 mL/hr over 30 minute(s)Continued Upon Transfer Dispensed: 50 mL bag14:15 09/29/2020 Site: #1 left forearmLoraine Horta RNGiven MORPHINE [IVP] Morphine IVP 2 mg (NOW, HIGH13:43 09/29/2020 Dose: 2 mg IVP ALERT MEDICATION)Loraine Horta RN In: NS 10 mL Site: #1 left forearm Name Value Range Interpretation Code Description Data Valentina rce(s) Supporting Document(s) ID Date Data Source [id number] 09/29/2020 10:10:00 AM [facility] 1 [facility] Emergency Department [address] [place] [address] Phone #: ext- [phone] 09/29/2020 10:06 Patient: [...] rce(s) Supporting Document(s) ID Date Data Source [id number] 09/29/2020 10:10:00 AM EST [facility] 1 Clinical Report - Nurses [facility] Emergency Department [address] [place] [address] Phone #: ext- [phone] 09/29/2020 10:06 Patient: [...] hodgkins lymphoma; [place]?). 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 2 Clinical Report - Nurses [facility] Emergency Department [address] [place] [address] Phone #: ext- [phone] 09/29/2020 10:06 Patient: AIDAN ACUÑA Sex: M [...] liver CA 3 Clinical Report - Nurses [facility] Emergency Department [address] [place] [address] Phone #: ext- [phone] 09/29/2020 10:06 Patient: AIDAN ACUÑA Sex: M : 1970 Age: 50y Mother had Colon CA). --10:46 09/29/20 Tai Schaefer, Physician. Interventions Identification band on patient. --10:13 09/29/20 Anna Alaniz R.N.PHYSICAL KXKLGOOCIN62:17 09/29/20. Ambulatory to room.GENERAL / NEURO / [...] to the ED physician. . --10:45 09/29/20 [place] hardware sales assistant, CARSON Monroy Tech1 ( Patient asked several times to get into a gown and refused.). --10:47 09/29/20 [facility] Porfirio Haji ER Tech1 10:42 09/29/2020 Started bag #1 [...] 200 mL/hr 4 Clinical Report - Nurses [facility] Emergency Department [address] [place] [address] Phone #: ext- [phone] 09/29/2020 10:06 Patient: [...] fluids administered. ( [facility] --13:24 09/29/20 Loraine Horta RN 5 Clinical Report - Nurses [facility] Emergency Department [address] [place] [address] Phone #: ext- [phone] 09/29/2020 10:06 Patient: AIDAN ACUÑA Sex: M : 1970 Age: 50y 13:24 09/29/20. BP: 135/81. HR: 85. RR: 18. O2 saturation: 100%. --13:25 09/29/20 [facility] 12:34 09/29/2020 Started bag #2 1000 [...] rates pain 6/10 Accepted for transfer to [facility] direct admission to ICU, awaiting [...] Horta RN 6 Clinical Report - Nurses [facility] Emergency Department [address] [place] [address] Phone #: ext- [phone] 09/29/2020 10:06 Patient: AIDAN ACUÑA Sex: M : 1970 Age: 50y 14:07 09/29/20. Transferred to [facility]. Visit overview, summary of care (CCDA), [...] rce(s) Supporting Document(s) ID Date Data Source [id number] 09/29/2020 10:10:00 AM EST [facility] 1 Clinical Report - Physicians/Mid Levels [facility] Emergency Department [address] [place] [address] Phone #: ext- [phone] 09/29/2020 10:06 Patient: AIDAN ACUÑA Sex: M : 1970 Age: 50y Time [...] Non- Hodgkin's lymphoma and is seen at [facility] at [facility].). Recent medical care: The patient was seen recently at another facility in a clinic. ( [facility]).REVIEW OF SYSTEMSNo constipation, black stools, hematemesis, [...] HISTORY 2 Clinical Report - Physicians/Mid Levels [facility] Emergency Department [address] [place] [address] Phone #: ext- [phone] 09/29/2020 10:06 Patient: AIDAN ACUÑA Sex: M [...] CT ABD //T// PELVIS W/ IV ONLY [facility] [address] [place] [address] PHONE: [phone] FAX: [phone] Name .................. : DENISHA Gutierrez Acct Number.................. : [id number] ROOM. ................. : TR-05 MR Number ................... : [id number] Stay type ............. : E/R Discharge Date......... ... : Admit Date ......... : 09/29/20 Admit Phys .................... : OLIVE HERRERA Date of ....... : 1970 Family Phys ................... : EDUARDO HARD Phone .................. : [phone] Age ................................ : 50 Film# .................. .:[id number] Sex ................................. : M Unsigned transcriptions are preliminary reports and do not represent a medical or legal document 3 Clinical Report - Physicians/Mid Levels [facility] Emergency Department [address] [place] [address] Phone #: ext- [phone] 09/29/2020 10:06 Patient: AIDAN ACUÑA Sex: M [...] CT dose: 2284.3 mGycm Page 1of 2 [place] [id number] PHONE: [phone] FAX: [phone] Name .................. : DENISHA Gutierrez Acct Number.................. : [id number] ROOM. ................. : TR-05 MR Number ................... : [id number] Stay type ............. : E/R Discharge Date......... ... : Admit Date ......... : 09/29/20 Admit Phys .................... : OLVIE HERRERA Date of ....... : Family Phys ................... : [employer] HARD Phone .................. : [phone] Age ................................ : 50 Film# .................. .:[id number] Sex ................................. : M Unsigned transcriptions are preliminary reports and do not represent a medical or legal document CT ABD Reason(s): Abdominal Pain Vomiting Contrast agent in mL: 75 Isovue 370 4 Clinical Report - Physicians/Mid Levels [facility] Emergency Department [address] [place] [address] Phone #: ext- [phone] 09/29/2020 10:06 Patient: AIDAN ACUÑA Sex: M : 1970 Age: 50y Method of administration: Intravenous Electronically Reviewed and Signed By DCTJOSE JUAN , SIGNDATE, SHAHRIAR Transcribe Initials: DANILO , Transcribe Date: 11/22/20 13:13, Dictation Date: <<REPDIST>> Page 2of 2CT CTA CHEST NON-CORONARY W CON INC PP: (VERONICA: 09/29/2020 10:34) ( MsgRcvd 09/29/2020 19:47) InProgress Test Result Flag Units (Reference) CT CTA CHEST NON-CORONARY W CON INC PP [facility] [address] [place] [address] PHONE: [phone] FAX: [phone] -- Name .................. : LINABERNARDINO AIDAN Gutierrez Acct Number.................. : [id number] ROOM. ................. : TR-05 MR Number ................... : [id number] Stay type ............. : E/R Discharge Date......... ... : Admit Date ......... : 09/29/20 Admit Phys .................... : OLIVE HERRERA Date of ....... : 1970 Family Phys ................... : CLARK HARD Phone .................. : [phone] Age ................................ : 50 Film# .................. .:[id number] Sex ................................. : M -- Unsigned transcriptions are preliminary reports and do not represent a medical or legal document CT CTA CHEST NON-CORONARY W C [id number] COMPLETE:09/29/20 10:34 70252 Reason(s): Lower chest pain / NHL in [...] -- 5 Clinical Report - Physicians/Mid Levels [facility] Emergency Department [address] [place] [address] Phone #: ext- [phone] 09/29/2020 10:06 Patient: [...] 370 -- -- -- Page 1of 2 [place] [id number] PHONE: [phone] FAX: [phone] -- Name .................. : DENISHA Gutierrez Acct Number.................. : [id number] ROOM. ................. : TR-05 Number ................... : [id number] Stay type ............. : E/R Discharge Date......... ... : Admit Date ......... : 09/29/20 Admit Phys .................... : OLIVE HERRERA Date of ....... : 1970 Family Phys ................... : [employer] HARD Phone .................. : [phone] Age ................................ : 50 Film# .................. .:[id number] Sex ................................. : M -- Unsigned transcriptions are preliminary reports and do not represent a medical or legal document CT CTA CHEST NON-CORONARY W C [id number] COMPLETE:09/29/20 10:34 86611 Reason(s): Lower chest pain / NHL in [...] Clear 6 Clinical Report - Physicians/Mid Levels [facility] Emergency Department [address] [place] [address] Phone #: ext- [phone] 09/29/2020 10:06 Patient: [...] A (NORMAL: NONETroponin-T: (VERONICA: 09/29/2020 10:17) ( [facility] 09/29/2020 11:15) Final results Test Result Flag Units (Reference) TROPONIN T <0.01 NG/ML (0.00 - 0.10) TROPONIN T0.1 ng/ml Recommended as the clinical threshold value forTroponin T.Lipase: (VERONICA: 09/29/2020 10:17) ( [facility] 09/29/2020 11:23) Final results Test Result Flag Units (Reference) LIPASE 1102 H U/L (13 - 60)Lactic Acid: (VERONICA: 09/29/2020 10:17) ( [facility] 09/29/2020 10:55) Final results Test Result Flag Units (Reference) LACTIC ACID 1.7 MMOL/L (0.2 - 2.2)PTT: (VERONICA: 09/29/2020 10:17) ( MsgRcvd 09/29/2020 10:55) Final results Test Result Flag Units (Reference) PTT 29.4 SECONDS (24.8 - 36.7)PT/INR: (VERONICA: 09/29/2020 10:17) ( MsgRcvd 09/29/2020 13:50) Final results Test Result Flag Units (Reference) PROTIME 11.3 SECONDS (11.0 - 15.5) TEST PERFORMED AT [address] [phone] CLIA# [id number] SEE SCANNED REPORT INR 1.10 (0.93 - 1.23) \\ BLDo\\INR INTERPRETATION\\BLDx\\ Therapeutic range for Coumadin andrelated oral anticoagulants. -International Normalized Ratio (INR): 2.0 - 3.0 for VenousThrombosis, Pulmonary Embolus, Tissue heart valves, Acute ND, Atrial Fibrillation, Valvular heartdisease and recurrent Systemic Embolism. -International Normalized Ratio (INR): 2.5 - 3.5for Mechanical Prosthetic valve.BNP: (VERONICA: 09/29/2020 10:17) ( MsgRcvd 09/29/2020 11:12) Final results Test Result Flag Units (Reference) BNP 43 PG/ML (0 - 125)CBC w Diff: (VERONICA: 09/29/2020 10:17) ( MsgRcvd 09/29/2020 11:14) Final results Test Result Flag Units (Reference) CBC W/AUTOMATED DIFF 7 Clinical Report - Physicians/Mid Levels [facility] Emergency Department [address] [place] [address] Phone #: ext- [phone] 09/29/2020 10:06 [id number] Sex: M : 1970 Age: 50y COMPLETE [...] 126) 8 Clinical Report - Physicians/Mid Levels [facility] Emergency Department [address] [place] [address] Phone #: ext- [phone] 09/29/2020 10:06 Patient: [...] His lab work 2 days ago at [facility] was NL. His T. bili today is 5.5, lipase 1192 and SGOT / SGPT is 229/343. He also has an acute UTI. He clearly needs a higher level of care and I have spoken with Dr. Hickman (Wet [employer]eder) and Dr. Nam (Hospitalist) at [facility]. Dr. Nam will accept pt. [...] to transfer explained to patient. Transferred to [facility]. Summary of care (CCDA) provided to transport team, EMS, patient, family and transfer facility via paper and digital media. 13:Sep 29 2020 Transfer to [facility] as direct admit to Dr. [...] jaundice). 9 Clinical Report - Physicians/Mid Levels [facility] Emergency Department [address] [place] [address] Phone #: ext- [phone] 09/29/2020 10:06 Patient: AIDAN ACUÑA Sex: M : 1970 Age: 50y(Electronically signed by Tai Schaefer, Physician 09/29/2020 20:11) Name Value Range Interpretation Code Description Data Valentina rce(s) Supporting Document(s) ID Date Data Source [id number] 09/29/2020 10:10:00 AM EST [facility] Addenda for AIDAN ACUÑA VisitID: [id number] Date: 15:24Pt urine growing E.C rosa 50- 100,000 and was transferred to [facility], pt is still there, faxed to [phone](Electronically signed by Anna Alaniz R.N. - 10/03/2020 15:24) Name Value Range Interpretation Code Description Data Valentina rce(s) Supporting Document(s) ID Date Data Source [id number] 10/01/2020 08:28:00 [place] [address] RESPIRATORY CARE REPORT ==== ---------NAME------- NUMBER SEX AGE ADMIT DISC. XRAY# F/C TYPEDENISHA Gutierrez [id number] M 50 09/29/20 09/29/20 [id number] X6B E/R DATE OF : 1970 M/R# [id number] PH#: [phone] TR-05 LOCATION: [place] [id number] COMP LETE:09/29/20 10:53 CJM [id number] PHYSICIAN: OLIVE HERRERA Name Value Range Interpretation Code Description Data Valentina rce(s) Supporting Document(s) ID Date Data Source [id number] 09/30/2020 12:02:00 [place] [address] PHONE: [phone] FAX: [phone] Name .................. : DENISHA BERMUDEZ L Acct Number.................. : [id number] ROOM. ................. : -05 Number ................... : [id number] Stay type ............. : E/R Discharge Date......... ... : Admit Date ......... : 09/29/20 Admit Phys .................... : VENERUS BR Date of ....... : 1970 Family Phys ................... : [employer] H[employer] Phone .................. : [phone] Age ................................ : 50 Film# .................. .:[id number] Sex ................................. : M Unsigned transcriptions are preliminary reports and do not represent a medical or legal document CT CTA CHEST NON-CORONARY W C [id number] COMPLETE:09/29/20 10:34 32345 Reason(s): Lower chest pain / NHL in [...] mL: 75 Isovue 370 Page [address] [place] [address] [place] [address] PHONE: [phone] FAX: [phone] Name .................. : DENISHA Gutierrez Acct Number.................. : [id number] [facility] Number ................... : [id number] Stay type ............. : E/R Discharge Date......... ... : Admit Date ......... : 09/29/20 Admit Phys .................... : OLIVE HERRERA Date of ....... : 1970 Family Phys ................... : [employer] Phone .................. : [phone] Age ................................ : 50 Film# .................. .:[id number] Sex ................................. : M Unsigned transcriptions are preliminary reports and do not represent a medical or legal document CT CTA CHEST NON- CORONARY W C [id number] COMPLETE:09/29/20 10:34 67835 Reason(s): Lower chest pain / NHL in neck / possible mets / Method of administration: Intravenous Electronically Reviewed and Signed By Aleksander Stovall M.D. , 09/30/20 12:02, [place] Transcribe Initials: DZ , Transcribe Date: 09/29/20 13:20, Dictation Date: Copy for: EMERGENCY DEPT via modem Copy for: 710 MED REC DISCHARGED Page 2 of 2 Name Value Range Interpretation Code Description Data Valentina rce(s) Supporting Document(s) ID Date Data Source [id number] 09/30/2020 12:02:00 PM EST [facility] [address] [place] [address] PHONE: [phone] FAX: [phone] Name .................. : DENISHA Gutierrez Acct Number.................. : [id number] ROOM. ................. : TR-05 MR Number ................... : [id number] Stay type ............. : E/R Discharge Date......... ... : Admit Date ......... : 09/29/20 Admit Phys .................... : OLIVE HERRERA Date of ....... : 1970 Family Phys ................... : [employer] Phone .................. : [phone] Age ................................ : 50 Film# .................. .:[id number] Sex ................................. : M Unsigned transcriptions are preliminary reports and do not represent a medical or legal document CT ABD & PELVIS W/ IV ONLY [id number] COMPLETE:09/29/20 10:34 30407 Reason(s): Abdominal Pain CT OF THE ABDOMEN [...] CT dose: 2284.3 mGycm Page 1 of 2 [place] [id number] PHONE: [phone] FAX: [phone] Name .................. : DENISHA Gutierrez Acct Number.................. : [id number] ROOM. ................. : TR-05 Number ................... : [id number] Stay type ............. : E/R Discharge Date......... ... : Admit Date ......... : 09/29/20 Admit Phys .................... : OLIVE HERRERA Date of ....... : 1970 Family Phys ................... : [facility] Phone .................. : [phone] Age ................................ : 50 Film# .................. .:[id number] Sex ................................. : M Unsigned transcriptions are preliminary reports and do not represent a medical or legal document CT ABD & PELVIS W/ IV ONLY [id number] COMPLETE:09/29/20 10:34 06693 Reason(s): Abdominal Pain Contrast agent in mL: 75 Isovue 370 Method of administration: Intravenous Electronically Reviewed and Signed By Aleksander Stovall M.D. , 09/30/20 12:02, SHAHRIAR Transcribe Initials: DANILO , Transcribe Date: 09/29/20 13:13, Dictation Date: Copy for: EMERGENCY DEPT via [facility] Copy for: 710 MED REC DISCHARGED Page 2 of 2 Name Value Range Interpretation Code Description Data Valentina rce(s) Supporting Document(s) ID Date Data Source [id number] 09/29/2020 11:54:00 AM EST [facility] ([facility]) Name Value Range Interpretation Code Description Data Valentina rce(s) Supporting Document(s) Culture Urine Laboratory test result [facility] ([facility]) SOURCE: Clean Catch ID Date Data Source [id number] 09/29/2020 11:54:00 AM EST [facility] ([facility]) Name Value Range Interpretation Code Description Data Valentina rce(s) Supporting Document(s) Urinalysis Laboratory test result [facility] ([facility]) SOURCE: Clean Catch Color Laboratory test result [facility] ([facility]) SOURCE: Clean Catch Source Laboratory test result [facility] ([facility]) SOURCE: Clean Catch pH 5 5-9 [facility] ([facility]) SOURCE: Clean Catch Clarity Laboratory test result [facility] ([facility]) SOURCE: Clean Catch Spec [place] 1.015 1.001-1.030 [facility] ([facility]) SOURCE: Clean Catch Glucose 1000 Abnormal (applies to non-numeric res ults) [facility] ([facility]) SOURCE: Clean Catch Bilirubin 3 [facility] ([facility]) SOURCE: Clean Catch Ketone 50 Abnormal (applies to non-numeric res ults) [facility] ([facility]) SOURCE: Clean Catch Protein 15 [facility] ([facility]) SOURCE: Clean Catch Nitrite Laboratory test result [facility] ([facility]) SOURCE: Clean Catch Leuk Est 25 [facility] ([facility]) SOURCE: Clean Catch Blood 10 Abnormal (applies to non-numeric res ults) [facility] ([facility]) SOURCE: Clean Catch Microscopic Laboratory test result M [facility] ([facility]) SOURCE: Clean Catch Urobilinogen 4 [facility] ([facility]) SOURCE: Clean Catch WBC Laboratory test result Abnormal (applies to non -numeric results) [facility] ([facility]) SOURCE: Clean Catch RBC Laboratory test result [facility] ([facility]) SOURCE: Clean Catch Bacteria Laboratory test result Abnormal (applies to non -numeric results) [facility] ([facility]) SOURCE: Clean Catch Epithelial Laboratory test result [facility] ([facility]) SOURCE: Clean Catch ID Date Data Source [id number] 10/03/2020 12:41:00 PM [facility] Name Value Range Interpretation Code Description Data Valentina rce(s) Supporting Document(s) CULTURE URINE [facility] _CULTURE URINE_$$[id number]$$[id number]$$[id number]$$[id number]$$327082$$086196$$347722$$499565$$918666$$ 662925$$062859$$474326$$[id number]$$948944$$207590$$013205$$619874$$851815$$946583$$ 427526$$389097$$482617$$891125$$384370$$352674$$373543$$[id number] -- Continued on next page --Patient: DOWNING AIDAN L Order: [id number] Page 2Culture: CULTURE URINE Status: Final ====$$[id number]$$[id number] DATE/TIME: 10/03/2020 12:06Culture: CULTURE URINE Status: FinalIsolate [...] on 10/02/2020 01:51 ET Escherichia coliUrine Culture,Comprehensive: [id number] coli Flag: APatient: DENISHA Gutierrez Order: [id number] Page 3Culture: CULTURE URINE Status: Final ====ISOLATE [...] S S . . . . . .73191-5Vnuemjpxlt S S . . . . . .267-5Imipenem S S . . . . . .279-0Levofloxacin S S . . . . . .92886-6Ascsxsddr S S . . . . . .6652-2Nitrofurantoin S S . . . . . .363- 2Piperacillin/Tazobactam S S . . . . . .412-7Tetracycline S S . . . . . .496-0Tobramycin S S . . . . . .508-2Trimethoprim/Sulfa S S . . . . . .516-5P1 Test performed by: [facility] #: [id number] [address] [place] [id number] [facility] [id number] Director : Jasiel Pedraza MD NPI #:Chief Chemist : 10/03/[email or web address] REF ID Date Data Source [id number] 09/29/2020 01:04:00 PM EST [facility] Name Value Range Interpretation Code Description Data Valentina rce(s) Supporting Document(s) [facility] COL[facility] lucio NORMAL: Yellow [facility] CLARITY hazy NORMAL: Clear [facility] Specific gravity of Urine by Test strip 1.015 1.001 - 1.030 [facility] pH 5 5 - 9 [facility] Glucose [Mass/volume] in Urine by Test strip 1000 NORMAL: Negat haydee [facility] Bilirubin.total [Presence] in Urine by Test strip 3 NORMAL: Negative [facility] Ketones [Presence] in Urine by Test strip 50 NORMAL: Negative [facility] Protein [Mass/volume] in Urine by Test strip 15 NORMAL: Negat haydee [facility] Nitrite [Presence] in Urine by Test strip POS NORMAL: Negative [facility] BLOOD 10 NORMAL: Negative A [facility] Leukocyte esterase [Presence] in Urine by Test strip 25 ROSANNE L: Negative [facility] Urobilinogen [Mass/volume] in Urine by Test strip 4 less leila n 1.0 mg/dL [facility] MICROSCOPIC See Below [facility] ital WBC 10 - 15 NORMAL: NONE SEEN A [facility] Erythrocytes [#/volume] in Urine by Test strip 1 - 3 NORMAL: NON E SEEN [facility] EPITHELIAL FEW NORMAL: NONE SEEN [facility] Bacteria [Presence] in Urine sediment by Light microscopy 3+ LARGE NORMAL: NONE SEEN A [facility] ID Date Data Source [id number] 09/29/2020 11:54:00 AM [facility] FAXED TO [facility] @ [id number] (09/29/20) TK Is patient on anticoagulants?: N Name Value Range Interpretation Code Description Data Valentina rce(s) Supporting Document(s) Prothrombin Time (Patient) 11.3 s 9.6-12.3 N [facility] INR 1.1 0.9-1.1 N [facility] THE INR IS OPERATIONALLY DEFINED FOR ZULEIMA SH PLASMA FROMPATIENTS STABILIZED ON ORAL ANTICOAGULANTS.ROUTINE ANTICOAGULANT THERAPY 2.0-3.0RECURRENT SYSTEMIC EMBOLISM/HEART VALVE REPLACEMENT 2.5-3.5 ID Date Data Source [id number] 09/29/2020 10:17:00 AM EST [facility] ([facility]) Name Value Range Interpretation Code Description Data Valentina rce(s) Supporting Document(s) Protime 11.3 s 11.0-15.5 [facility] ([facility]) TEST PERFORMED AT [facility] [address] [place] [address] CLIA# [id number] SEE SCANNED REPORT Inr 1.10 0.93-1.23 [facility] ([facility]) \\BLDo\\INR INTERPRETATION\\BLDx\\ Therapeutic range for Coumadin and related oral anticoagulants. -International Normalized Ratio (INR): 2 .0 - 3.0 for Venous Thrombosis, Pulmonary Embolus, Tissue heart valves, Acute ND, Atrial Fibrillation, Valvular heart disease and recurrent Systemic Embolism. -International Normalized Ratio (INR): 2 .5 - 3.5 for Mechanical Prosthetic valve. ID Date Data Source [id number] 09/29/2020 10:17:00 AM EST [facility] ([facility]) Name Value Range Interpretation Code Description Data [facility] rce(s) Supporting Document(s) Troponin T.cardiac [Mass/volume] in Serum or Plasma Laborato ry test result 0.00-0.10 [facility] ([facility]) TROPONIN T 0.1 ng/ml Recommended as the clinical th reshold value for Troponin T. Lipase [Enzymatic activity/volume] in Serum or Plasma 1102 U/L 13-60 Above high normal [facility] ([facility]) ID Date Data Source [id number] 09/29/2020 10:17:00 AM EST [facility] ([facility]) Name Value Range Interpretation Code Description Data Valentina rce(s) Supporting Document(s) CBC W/Automated Diff Laboratory test result [facility] ([facility]) COMPLETE BLOOD COUNT WBC 2.3 10^3/uL 4.2-11.0 Below low normal [facility] ([facility]) Hematocrit 46.0 % 41.0-51.0 [facility] ([facility]) Hemoglobin 16.0 g/dL 14.0-16.0 [facility] ([facility]) RBC 4.94 10^6/uL 4.50-6.30 [facility] ([facility]) MCHC 34.8 g/dL 31.0-36.0 [facility] ([facility]) MCV 93.1 fL 80.0-94.0 [facility] ([facility]) MCH 32.4 pg 27.0-34.0 [facility] ([facility]) MPV 10.2 fL 7.4-10.4 [facility] ([facility]) Platelets 128 10^3/uL 150-450 Below low normal [facility] ([facility]) RDW 13.2 % 11.5-14.8 [facility] ([facility]) Neut 55.0 % 37.0-80.0 [facility] ([facility]) Grimes 19.0 % 3.0-8.0 Above high normal [facility] ([facility]) Eos 1.3 % 0.0-7.0 [facility] ([facility]) Lymph 23.8 % 25.0-40.0 Below low normal [facility] ( [facility]) Baso 0.9 % 0.0-2.0 [facility] ([facility]) %NRBC 0.0 % 0.0-0.0 [facility] ([facility]) %Ig 0.0 % 0.0-0.0 [facility] ([facility]) #Neut 1.27 10^3/uL 2.00-6.90 Below low normal [facility] ([facility]) #Lymph 0.55 10^3/uL 0.60-3.40 Below low normal [facility] ([facility]) #Grimes 0.44 10^3/uL 0.00-0.90 [facility] ([facility]) #Eos 0.03 10^3/uL 0.00-0.70 [facility] ([facility]) #Baso 0.02 10^3/uL 0.00-0.20 [facility] ([facility]) #Ig 0.00 10^3/uL 0.00-0.10 [facility] ([facility]) Segs 58 % 37-80 [facility] ([facility]) #NRBC 0.00 10^3/uL 0.00-0.00 [facility] ([facility]) Manual Diff Laboratory test result M [facility] ([facility]) %Lymph 20 % 25-40 Below low normal [facility] ([facility]) %Grimes 20 % 3-8 Above high normal [facility] ([facility]) Charla Lym 2 % [facility] ([facility]) RBC Morph Laboratory test result [facility] ([facility]) Aniso Laboratory test result Abnormal (applies to non -numeric results) [facility] ([facility]) { SICKLE CELL (NORMAL: NONE SEEN ) PLT Est Laboratory test result [facility] ([facility]) COMMENT: ID Date Data Source [id number] 09/29/2020 10:17:00 AM EST [facility] ([facility]) Name Value Range Interpretation Code Description Data Valentina rce(s) Supporting Document(s) Potassium 3.8 meq/L 3.6-5.0 [facility] ([facility]) Comprehensive Metabo Laboratory test result [facility] ([facility]) COMPREHENSIVE METABOLIC PANEL Sodium 133 meq/L 134-153 Below low normal [facility] ( [facility]) Chloride 97 meq/L 98-107 Below low normal [facility] ( [facility]) Co2 24 meq/L 22-30 [facility] ([facility]) BUN 8 mg/dL 7-21 [facility] ([facility]) Creatinine 0.4 mg/dL 0.7-1.5 Below low normal [facility] ( [facility]) Glucose 287 mg/dL 65-110 Above high normal [facility] ([facility]) BUN/Creat 20 8-27 [facility] ([facility]) Albumin 3.8 g/dL 3.9-5.0 Below low normal [facility] ( [facility]) Total Protein 7.8 g/dL 6.3-8.2 [facility] ([facility]) Calcium 9.6 mg/dL 8.4-10.2 [facility] ([facility]) Globulin 4.0 GM/DL 2.4-3.2 Above high normal [facility] ([facility]) A/G Ratio 1.0 0.8-2.0 [facility] ([facility]) Total Bili 5.5 mg/dL 0.2-1.3 Above high normal [facility] ([facility]) Alkaline Phos 394 U/L 38-126 Above high normal MEDE NT ([facility]) Anion Gap 12.0 mmol/L 8.0-16.0 [facility] ([facility]) SGPT/Alt 343 U/L 7-56 Above high normal [facility] ([facility]) Sgot/Ast 229 U/L 5-40 Above high normal [facility] ([facility]) Age 50 yrs [facility] ([facility]) Afr Amer GFR Laboratory test result [facility] ([facility]) Male GFR Interprentation 20-49 yrs >60 [...] Normal Non-Aa GFR Laboratory test result [facility] ([facility]) ID Date Data Source [id number] 09/29/2020 10:17:00 AM EST [facility] ([facility]) Name Value Range Interpretation Code Description Data Valentina rce(s) Supporting Document(s) Natriuretic peptide.B prohormone N-Terminal [Mass/volu me] in Serum or Plasma 43 pg/mL 0-125 [facility] ([facility]) aPTT in Platelet poor plasma by Coagulation assay 29.4 s 24.8-36. 7 [facility] ([facility]) Lactate [Mass/volume] in Serum or Plasma 1.7 mmol/L 0.2-2.2 [facility] ([facility]) ID Date Data Source [id number] 09/29/2020 01:49:00 PM [facility] Name Value Range Interpretation Code Description Data Valentina rce(s) Supporting Document(s) Prothrombin time (PT) 11.3 SECONDS 11.0 - 15.5 [facility] [place] [address] CLIA# [id number] SEE SCANNED REPORT INR in Platelet poor plasma by Coagulation assay 1.10 0.93 - 1. 23 [facility] \\BLDo\\INR INTERPRETATION\\BLDx\\ Therapeutic range for Coumadin and related oral anticoagulants. - International Normalized Ratio (INR): 2.0 - 3.0 for Venous Thrombosis, Pulmonary Embolus, Tissue heart valves, Acute ND, Atrial Fibrillation, Valvular heart disease and recurrent Systemic Embolism. -International Normalized Ratio (INR): 2.5 - 3.5 for Mechanical Prosthetic valve. ID Date Data Source [id number] 09/29/2020 11:23:00 AM [facility] Name Value Range Interpretation Code Description Data Valentina rce(s) Supporting Document(s) Lipase [Enzymatic activity/volume] in Serum or Plasma 1102 U/L 13 - 60 H [facility] ID Date Data Source [id number] 09/29/2020 11:15:00 AM [facility] Name Value Range Interpretation Code Description Data Valentina rce(s) Supporting Document(s) TROPONIN T <0.01 NG/ML 0.00 - 0.10 [facility] TROPONIN T0.1 ng/ml Recommended as the c linical threshold value forTroponin T. ID Date Data Source [id number] 09/29/2020 11:13:00 AM [facility] Name Value Range Interpretation Code Description Data Valentina rce(s) Supporting Document(s) CBC W/AUTOMATED DIFF [facility] COMPLETE BLOOD COUNT Leukocytes [#/volume] in Blood by Automated count 2.3 10^3/uL 4.2 - 1 1.0 L [facility] Erythrocytes [#/volume] in Blood by Automated count 4.94 10^6/uL 4. 50 - 6.30 [facility] Hemoglobin [Mass/volume] in Blood 16.0 g/dL 14.0 - 16.0 [facility] Hematocrit [Volume Fraction] of Blood by Automated count 46.0 % 4 1.0 - 51.0 [facility] Erythrocyte mean corpuscular volume [Entitic volume] by Auto mated count 93.1 fL 80.0 - 94.0 [facility] Erythrocyte mean corpuscular hemoglobin [Entitic mass] by Automated count 32.4 pg 27.0 - 34.0 [facility] Erythrocyte mean corpuscular hemoglobin concentration [Mass/volume] by Automated count 34.8 g/dL 31.0 - 36.0 [facility] Erythrocyte distribution width [Ratio] by Automated count 13.2 % 11.5 - 14.8 [facility] Platelets [#/volume] in Blood by Automated count 128 10^3/uL 150 - 45 0 L [facility] Platelet mean volume [Entitic volume] in Blood by Automated count 10.2 fL 7.4 - 10.4 [facility] Neutrophils/100 leukocytes in Blood by Automated count 55.0 % 37. 0 - 80.0 [facility] Lymphocytes/100 leukocytes in Blood by Manual count 23.8 % 25.0 - 40.0 L [facility] Monocytes/100 leukocytes in Blood by Automated count 19.0 % 3.0 - 8.0 H [facility] Eosinophils/100 leukocytes in Blood by Automated count 1.3 % 0.0 - 7.0 [facility] Basophils/100 leukocytes in Blood by Automated count 0.9 % 0.0 - 2.0 [facility] %IG 0.0 % 0.0 - 0.0 [facility] %NRBC 0.0 % 0.0 - 0.0 [facility] al Neutrophils [#/volume] in Blood by Automated count 1.27 10^3/uL 2.00 - 6.90 L [facility] Lymphocytes [#/volume] in Blood by Automated count 0.55 10^3/uL 0.60 - 3.40 L [facility] Monocytes [#/volume] in Blood by Automated count 0.44 10^3/uL 0.00 - 0.90 [facility] Eosinophils [#/volume] in Blood by Automated count 0.03 10^3/uL 0.00 - 0.70 [facility] Basophils [#/volume] in Blood by Automated count 0.02 10^3/uL 0.00 - 0.20 [facility] #IG 0.00 10^3/uL 0.00 - 0.10 [facility] #NRBC 0.00 10^3/uL 0.00 - 0.00 [facility] MANUAL DIFF SEE BELOW [facility] Segmented neutrophils/100 leukocytes in Blood by Manual count 58 % 37 - 80 [facility] %LYMPH 20 % 25 - 40 L [facility] %MONO 20 % 3 - 8 H [facility] CHARLA LYM 2 % [facility] RBC MORPH SEE BELOW [facility] Anisocytosis [Presence] in Blood by Light microscopy 1+ ROSANNE L: NONE SEEN A [facility] { SICKLE CELL (NORMAL: NONE SEEN ) Platelet adequacy [Presence] in Blood by Light microscopy NORMAL NORMAL: NORMAL [facility] COMMENT: ID Date Data Source [id number] 09/29/2020 11:12:00 AM EST [facility] Name Value Range Interpretation Code Description Data Valentina rce(s) Supporting Document(s) COMPREHENSIVE METABOLIC PANEL [facility] COMPREHENSIVE METABOLIC PANEL Sodium [Moles/volume] in Serum or Plasma 133 mEq/L 134 - 153 L [facility] Potassium [Moles/volume] in Serum or Plasma 3.8 mEq/L 3.6 - 5.0 [facility] Chloride [Moles/volume] in Serum or Plasma 97 mEq/L 98 - 107 L [facility] Carbon dioxide, total [Moles/volume] in Serum or Plasma 24 MEQ/L 22 - 30 [facility] Glucose [Mass/volume] in Serum or Plasma 287 MG/DL 65 - 110 H [facility] BUN 8 MG/DL 7 - 21 [facility] al Creatinine [Mass/volume] in Serum or Plasma 0.4 MG/DL 0.7 - 1.5 L [facility] BUN/CREAT 20 8 - 27 [facility] al Protein [Mass/volume] in Serum or Plasma 7.8 G/DL 6.3 - 8.2 [facility] Albumin [Mass/volume] in Serum or Plasma 3.8 G/DL 3.9 - 5.0 L [facility] Globulin [Mass/volume] in Serum by calculation 4.0 GM/DL 2.4 - 3.2 H [facility] A/G RATIO 1.0 0.8 - 2.0 [facility] Calcium [Mass/volume] in Serum or Plasma 9.6 MG/DL 8.4 - 10.2 [facility] Bilirubin.total [Mass/volume] in Serum or Plasma 5.5 MG/DL 0.2 - 1.3 H [facility] Alkaline phosphatase [Enzymatic activity/volume] in Serum or Plasma 394 U/L 38 - 126 H [facility] Aspartate aminotransferase [Enzymatic activity/volume] in Serum or Plasma 229 U/L 5 - 40 H [facility] Alanine aminotransferase [Enzymatic activity/volume] in Seru m or Plasma 343 U/L 7 - 56 H [facility] Anion gap 3 in Serum or Plasma 12.0 mmol/L 8.0 - 16.0 [facility] AGE 50 yrs [facility] NON-AA GFR >60 mL/min [facility] AFR AMER GFR >60 mL/min [facility] Male GFR In terprentation [...] >32 mL/min Normal ID Date Data Source [id number] 09/29/2020 11:12:00 AM [facility] Name Value Range Interpretation Code Description Data Valentina rce(s) Supporting Document(s) BNP 43 PG/ML 0 - 125 [facility] Date Data Source [id number] 09/29/2020 10:55:00 AM [facility] Value Range Interpretation Code Description Data Valentina rce(s) Supporting Document(s) aPTT in Blood by Coagulation assay 29.4 SECONDS 24.8 - 36.7 [facility] ID Date Data Source [id number] 09/29/2020 10:54:00 AM [facility] Value Range Interpretation Code Description Data Valentina rce(s) Supporting Document(s) Lactate [Moles/volume] in Serum or Plasma 1.7 MMOL/L 0.2 - 2.2 [facility] ID Date Data Source [id number] 08/27/2020 08:32:00 AM EDT [facility] ([facility]) Name Value Range Interpretation Code Description Data Valentina rce(s) Supporting Document(s) Protime 13.6 s 11.0-15.5 [facility] ([facility]) Inr 1.03 0.93-1.23 [facility] ([facility]) PTT 29.2 s 24.8-36.7 [facility] ([facility]) \\BLDo\\INR INTERPRETATION\\BLDx\\ Therapeutic range for Coumadin and related oral anticoagulants. -International Normalized Ratio (INR): 2 .0 - 3.0 for Venous Thrombosis, Pulmonary Embolus, Tissue heart valves, Acute ND Atrial Fibrillation, Valvular heart disease and recurrent Systemic Embolism. -International Normalized Ratio (INR): 2 .5 - 3.5 for Mechanical Prosthetic valve. ID Date Data Source [id number] 08/27/2020 08:32:00 AM EDT [facility] ([facility]) Name Value Range Interpretation Code Description Data Valentina rce(s) Supporting Document(s) Uibc 84 ug/dL 112-347 Below low normal [facility] ( [facility]) Iron 103 ug/dL 42-135 [facility] ([facility]) Tibc 187 ug/dL 250-450 Below low normal [facility] ( [facility]) Iron Sat 55 % [facility] ([facility]) ID Date Data Source [id number] 08/27/2020 08:32:00 AM EDT [facility] ([facility]) Name Value Range Interpretation Code Description Data Valentina rce(s) Supporting Document(s) Potassium 3.8 meq/L 3.6-5.0 [facility] ([facility]) Sodium 134 meq/L 134-153 [facility] ([facility]) Comprehensive [employer] Laboratory test result [facility] ([facility]) COMPREHENSIVE METABOLIC PANEL Chloride 100 meq/L 98-107 [facility] ([facility]) Glucose 325 mg/dL 65-110 Above high normal [facility] ([facility]) Co2 25 meq/L 22-30 [facility] ([facility]) Total Protein 7.9 g/dL 6.3-8.2 [facility] ([facility]) BUN/Creat 14 8-27 [facility] ([facility]) BUN 7 mg/dL 7-21 [facility] ([facility]) Creatinine 0.5 mg/dL 0.7-1.5 Below low normal [facility] ( [facility]) A/G Ratio 0.9 0.8-2.0 [facility] ([facility]) Albumin 3.7 g/dL 3.9-5.0 Below low normal [facility] ( [facility]) Globulin 4.2 GM/DL 2.4-3.2 Above high normal [facility] ([facility]) Calcium 8.9 mg/dL 8.4-10.2 [facility] ([facility]) Alkaline Phos 87 U/L 38-126 [facility] ([facility]) Total Bili 0.9 mg/dL 0.2-1.3 [facility] ([facility]) Anion Gap 9.0 mmol/L 8.0-16.0 [facility] ([facility]) Sgot/Ast 29 U/L 5-40 [facility] ([facility]) SGPT/Alt 36 U/L 7-56 [facility] ([facility]) Non-Aa GFR Laboratory test result [facility] ([facility]) Afr Amer GFR Laboratory test result [facility] ([facility]) Male GFR Interprentation 20-49 yrs >60 [...] >32 mL/min Normal Age 50 yrs [facility] ([facility]) ID Date Data Source [id number] 08/27/2020 08:32:00 AM EDT [facility] ([facility]) Name Value Range Interpretation Code Description Data Valentina rce(s) Supporting Document(s) Ferritin [Mass/volume] in Serum or Plasma 870.9 ng/mL 5.0-244 Above high normal [facility] ([facility]) ID Date Data Source [id number] 08/27/2020 08:32:00 AM EDT [facility] ([facility]) Name Value Range Interpretation Code Description Data Valentina rce(s) Supporting Document(s) CBC W/Automated Diff Laboratory test result [facility] ([facility]) COMPLETE BLOOD COUNT RBC 4.68 10^6/uL 4.50-6.30 [facility] ([facility]) Hemoglobin 15.0 g/dL 14.0-16.0 [facility] ([facility]) WBC 2.2 10^3/uL 4.2-11.0 Below low normal [facility] ([facility]) MCHC 34.4 g/dL 31.0-36.0 [facility] ([facility]) MCH 32.1 pg 27.0-34.0 [facility] ([facility]) MCV 93.2 fL 80.0-94.0 [facility] ([facility]) Hematocrit 43.6 % 41.0-51.0 [facility] ([facility]) RDW 13.0 % 11.5-14.8 [facility] ([facility]) MPV 9.4 fL 7.4-10.4 [facility] ([facility]) Platelets 117 10^3/uL 150-450 Below low normal [facility] ([facility]) Lymph 37.2 % 25.0-40.0 [facility] ([facility]) Neut 41.9 % 37.0-80.0 [facility] ([facility]) Grimes 18.1 % 3.0-8.0 Above high normal [facility] ([facility]) %Ig 0.0 % 0.0-0.0 [facility] ([facility]) Baso 0.5 % 0.0-2.0 [facility] ([facility]) Eos 2.3 % 0.0-7.0 [facility] ([facility]) %NRBC 0.0 % 0.0-0.0 [facility] ([facility]) #Lymph 0.80 10^3/uL 0.60-3.40 [facility] ([facility]) #Neut 0.90 10^3/uL 2.00-6.90 Below low normal [facility] ([facility]) #Eos 0.05 10^3/uL 0.00-0.70 [facility] ([facility]) #Baso 0.01 10^3/uL 0.00-0.20 [facility] ([facility]) #Grimes 0.39 10^3/uL 0.00-0.90 [facility] ([facility]) #NRBC 0.00 10^3/uL 0.00-0.00 [facility] ([facility]) Manual Diff Laboratory test result [facility] ([facility]) #Ig 0.00 10^3/uL 0.00-0.10 [facility] ([facility]) Segs 49 % 37-80 [facility] ([facility]) %Grimes 10 % 3-8 Above high normal [facility] ([facility]) %Eos 1 % 0-7 [facility] ([facility]) %Lymph 40 % 25-40 [facility] ([facility]) RBC Morph Laboratory test result [facility] ([facility]) { SICKLE CELL (NORMAL: NONE SEEN ) PLT Est Laboratory test result Abnormal (applies to non -numeric results) [facility] ([facility]) COMMENT: ID Date Data Source [id number] 08/27/2020 09:45:00 AM EDT [facility] Name Value Range Interpretation Code Description Data Valentina rce(s) Supporting Document(s) CBC W/AUTOMATED DIFF [facility] COMPLETE BLOOD COUNT Leukocytes [#/volume] in Blood by Automated count 2.2 10^3/uL 4.2 - 1 1.0 L [facility] Erythrocytes [#/volume] in Blood by Automated count 4.68 10^6/uL 4. 50 - 6.30 [facility] Hemoglobin [Mass/volume] in Blood 15.0 g/dL 14.0 - 16.0 [facility] Hematocrit [Volume Fraction] of Blood by Automated count 43.6 % 4 1.0 - 51.0 [facility] Erythrocyte mean corpuscular volume [Entitic volume] by Auto mated count 93.2 fL 80.0 - 94.0 [facility] Erythrocyte mean corpuscular hemoglobin [Entitic mass] by Automated count 32.1 pg 27.0 - 34.0 [facility] Erythrocyte mean corpuscular hemoglobin concentration [Mass/volume] by Automated count 34.4 g/dL 31.0 - 36.0 [facility] Erythrocyte distribution width [Ratio] by Automated count 13.0 % 11.5 - 14.8 [facility] Platelets [#/volume] in Blood by Automated count 117 10^3/uL 150 - 45 0 L [facility] Platelet mean volume [Entitic volume] in Blood by Automated count 9.4 fL 7.4 - 10.4 [facility] Neutrophils/100 leukocytes in Blood by Automated count 41.9 % 37. 0 - 80.0 [facility] Lymphocytes/100 leukocytes in Blood by Manual count 37.2 % 25.0 - 40.0 [facility] Monocytes/100 leukocytes in Blood by Automated count 18.1 % 3.0 - 8.0 H [facility] Eosinophils/100 leukocytes in Blood by Automated count 2.3 % 0.0 - 7.0 [facility] Basophils/100 leukocytes in Blood by Automated count 0.5 % 0.0 - 2.0 [facility] %IG 0.0 % 0.0 - 0.0 [facility] al %NRBC 0.0 % 0.0 - 0.0 [facility] al Neutrophils [#/volume] in Blood by Automated count 0.90 10^3/uL 2.00 - 6.90 L [facility] Lymphocytes [#/volume] in Blood by Automated count 0.80 10^3/uL 0.60 - 3.40 [facility] Monocytes [#/volume] in Blood by Automated count 0.39 10^3/uL 0.00 - 0.90 [facility] Eosinophils [#/volume] in Blood by Automated count 0.05 10^3/uL 0.00 - 0.70 [facility] Basophils [#/volume] in Blood by Automated count 0.01 10^3/uL 0.00 - 0.20 [facility] #IG 0.00 10^3/uL 0.00 - 0.10 [facility] #NRBC 0.00 10^3/uL 0.00 - 0.00 [facility] MANUAL DIFF SEE BELOW [facility] Segmented neutrophils/100 leukocytes in Blood by Manual count 49 % 37 - 80 [facility] %LYMPH 40 % 25 - 40 [facility] %MONO 10 % 3 - 8 H [facility] %EOS 1 % 0 - 7 [facility] RBC MORPH SEE BELOW [facility] { SICKLE CELL (NORMAL: NONE SEEN ) Platelet adequacy [Presence] in Blood by Light microscopy DE CREASED NORMAL: NORMAL A [facility] COMMENT: ID Date Data Source [id number] 08/27/2020 09:39:00 AM EDT [facility] Name Value Range Interpretation Code Description Data Valentina rce(s) Supporting Document(s) Ferritin [Mass/volume] in Serum or Plasma 870.9 ng/mL 5.0 - 244 H [facility] ID Date Data Source [id number] 08/27/2020 09:28:00 AM EDT [facility] Name Value Range Interpretation Code Description Data Valentina rce(s) Supporting Document(s) Iron [Mass/volume] in Serum or Plasma 103 UG/DL 42 - 135 [facility] Iron binding capacity.unsaturated [Mass/volume] in Serum or Plasma 84 UG/DL 112 - 347 L [facility] Iron binding capacity [Mass/volume] in Serum or Plasma 187 ug/dL 250 - 450 L [facility] Iron saturation [Mass Fraction] in Serum or Plasma 55 % [facility] ID Date Data Source [id number] 08/27/2020 09:28:00 AM EDT [facility] Name Value Range Interpretation Code Description Data Valentina rce(s) Supporting Document(s) COMPREHENSIVE METABOLIC PANEL [facility] COMPREHENSIVE METABOLIC PANEL Sodium [Moles/volume] in Serum or Plasma 134 mEq/L 134 - 153 [facility] Potassium [Moles/volume] in Serum or Plasma 3.8 mEq/L 3.6 - 5.0 [facility] Chloride [Moles/volume] in Serum or Plasma 100 mEq/L 98 - 107 [facility] Carbon dioxide, total [Moles/volume] in Serum or Plasma 25 MEQ/L 22 - 30 [facility] Glucose [Mass/volume] in Serum or Plasma 325 MG/DL 65 - 110 H [facility] B[facility] 7 MG[facility]DL 7 - [facility] Creatinine [Mass/volume] in Serum or Plasma 0.5 MG/DL 0.7 - 1.5 L [facility] BUN/CREAT 14 8 - 27 [facility] al Protein [Mass/volume] in Serum or Plasma 7.9 G/DL 6.3 - 8.2 [facility] Albumin [Mass/volume] in Serum or Plasma 3.7 G/DL 3.9 - 5.0 L [facility] Globulin [Mass/volume] in Serum by calculation 4.2 GM/DL 2.4 - 3.2 H [facility] A/G RATIO 0.9 0.8 - 2.0 [facility] Calcium [Mass/volume] in Serum or Plasma 8.9 MG/DL 8.4 - 10.2 [facility] Bilirubin.total [Mass/volume] in Serum or Plasma 0.9 MG/DL 0.2 - 1.3 [facility] Alkaline phosphatase [Enzymatic activity/volume] in Serum or Plasma 87 U/L 38 - 126 [facility] Aspartate aminotransferase [Enzymatic activity/volume] in Serum or Plasma 29 U/L 5 - 40 [facility] Alanine aminotransferase [Enzymatic activity/volume] in Seru m or Plasma 36 U/L 7 - 56 [facility] Anion gap 3 in Serum or Plasma 9.0 mmol/L 8.0 - 16.0 [facility] AGE 50 yrs [facility] al NON-AA GFR >60 mL/min [facility] ital AFR AMER GFR >60 mL/min [facility] spital Male GFR In terprentation 20-49 yrs [...] >32 mL/min Normal ID Date Data Source [id number] 08/27/2020 08:53:00 AM EDT [facility] Name Value Range Interpretation Code Description Data Valentina rce(s) Supporting Document(s) Prothrombin time (PT) 13.6 SECONDS 11.0 - 15.5 [facility] INR in Platelet poor plasma by Coagulation assay 1.03 0.93 - 1. 23 [facility] aPTT in Blood by Coagulation assay 29.2 SECONDS 24.8 - 36.7 [facility] \\BLDo\\INR INTERPRETATION\\BLDx\\ Therapeutic range for Coumadin and related oral anticoagulants. - International Normalized Ratio (INR): 2.0 - 3.0 for Venous Thrombosis, Pulmonary Embolus, Tissue heart valves, Acute ND Atrial Fibrillation, Valvular heart disease and recurrent Systemic Embolism. - International Normalized Ratio (INR): 2.5 - 3.5 for Mechanical Prosthetic valve. ID Date Data Source [id number] 07/17/2020 09:15:00 AM EDT [facility] ([facility]) Name Value Range Interpretation Code Description Data Valentina rce(s) Supporting Document(s) Culture Wound Laboratory test result [facility] ([facility]) {SPECIMEN SOURCE : R CHEST ABCESS ID Date Data Source [id number] 07/21/2020 10:44:00 PM EDT [facility] Name Value Range Interpretation Code Description Data Valentina rce(s) Supporting Document(s) CULTURE WOUND [facility] spital _CULTURE WOUND_$$[id number]$$[id number]$$[id number]$$[id number]$$[id number]$$[id number] DATE/TIME: 07/21/2020 12:05Culture: CULTURE WOUND Status: FinalAerobic [...] on next page --Patient: DENISHA Gutierrez Order: [id number] Page 2Culture: CULTURE WOUND Status: Final ====Beta hemolytic Streptococcus, group A Previous result entered on 07/19/2020 05:40 ET Beta hemolytic Streptococcus, group ABeta hemolytic Streptococcus, group A Flag: AP1 Test performed by: [facility] #: [id number] [id number] [facility] [id number] Director : Jasiel Pedraza MD NPI #:Chief Chemist : 07/19/20.0829.XMT.SENT REF 07/20/20.230.XMT.SENT REF 07/21/20.2243.XMT.SENT REF 07/21/20.2243.DW .to ANGIE via fax ID Date Data Source [id number] 06/27/2020 09:46:00 [place] [address] PHONE: [phone] FAX: [phone] Name .................. : DENISHA Gutierrez Acct Number.................. : [id number] ROOM. ................. : Number ................... : [id number] Stay type ............. : CLINIC Discharge Date......... ... : 06/25/20 Admit Date ...... ... : 06/25/20 Admit Phys .................... : INGRAMELIS Date of ....... : 1970 Family Phys ................... : CLARK HARD Phone .................. : [phone] Age ................................ : 50 Film# .................. .:[id number] Sex ................................. : M Unsigned transcriptions are preliminary reports and do not represent a medical or legal document CT ABD & PELV W/ORAL/IV CONTR [id number] COMPLETE:06/25/20 13:30 LANA [id number] (REASON FOR ABDOMEN: ABD PAIN CT OF [...] dose: 2332.2 mGycm Page 1 of 2 [place] [id number] PHONE: [phone] FAX: [phone] Name .................. : DENISHA Gutierrez Acct Number.................. : [id number] ROOM. ................. : MR Number ................... : [id number] Stay type ............. : CLINIC Discharge Date......... ... : 06/25/20 Admit Date ......... : 06/25/20 Admit Phys .................... : INGRAMELIS Date of ....... : 1970 Family Phys ................... : CLARK HARD Phone .................. : [phone] Age ................................ : 50 Film# .................. .:[id number] Sex ................................. : M Unsigned transcriptions are preliminary reports and do not represent a medical or legal document CT ABD & PELV W/ORAL/IV CONTR [id number] COMPLETE:06/25/20 13:30 LANA [id number] (REASON FOR ABDOMEN: ABD PAIN Contrast agent in mL: 75 Isovue 370 Method of administration: Intravenous Electronically Reviewed and Signed By Ramesh Mcclelland MD , 06/27/20 09:46, DINA Transcribe Initials: DZ , Transcribe Date: 06/26/20 00:58, Dictation Date: Page 2 of 2 Name Value Range Interpretation Code Description Data Valentina rce(s) Supporting Document(s) ID Date Data Source [id number] 06/25/2020 07:59:00 AM EDT [facility] ([facility]) Name Value Range Interpretation Code Description Data Valentina rce(s) Supporting Document(s) CT Abd & Pelv W/Oral/IV Contrast Laboratory test result [facility] ([facility]) ID Date Data Source [id number] 06/25/2020 07:53:00 AM EDT [facility] ([facility]) Name Value Range Interpretation Code Description Data Valentina rce(s) Supporting Document(s) Amylase [Enzymatic activity/volume] in Serum or Plasma 92 U/L 30- 110 [facility] ([facility]) FASTING 8 HOUR~.~.~<DG1.3.1>R10.84</DG1.3.1><DG1.3.1>R10.84</DG1.3.1><DG1.3.1>R10.84</DG1. 3.1><DG Lipase [Enzymatic activity/volume] in Serum or Plasma 63 U/L 13-60 Above high normal [facility] ([facility]) FASTING 8 HOUR~.~.~<DG1.3.1>R10.84</DG1.3.1><DG1.3.1>R10.84</DG1.3.1><DG1.3.1>R10.84</DG1. 3.1><DG Calcidiol [Mass/volume] in Serum or Plasma 19 ng/mL [facility] ([facility]) FASTING 8 HOUR~.~.~<DG1.3.1>R10.84</DG1.3.1><DG1.3.1>R10.84</DG1.3.1><DG1.3.1>R10.84</DG1. 3.1><DG ID Date Data Source [id number] 06/25/2020 07:53:00 AM EDT [facility] ([facility]) Name Value Range Interpretation Code Description Data Valentina rce(s) Supporting Document(s) Cve Panel Laboratory test result [facility] ([facility]) FASTING 8 HOUR~.~.~<DG1.3.1>R10.84</DG1.3.1><DG1.3.1>R10.84</DG1.3.1><DG1.3.1>R10.84</DG1. 3.1><DG HDL 49 mg/dL 29-86 [facility] ([facility]) FASTING 8 HOUR~.~.~<DG1.3.1>R10.84</DG1.3.1><DG1.3.1>R10.84</DG1.3.1><DG1.3.1>R10.84</DG1. 3.1><DG Cholesterol 131 mg/dL 131-200 [facility] ([facility]) FASTING 8 HOUR~.~.~<DG1.3.1>R10.84</DG1.3.1><DG1.3.1>R10.84</DG1.3.1><DG1.3.1>R10.84</DG1. 3.1><DG Triglycerides 138 mg/dL 35-160 [facility] ([facility]) FASTING 8 HOUR~.~.~<DG1.3.1>R10.84</DG1.3.1><DG1.3.1>R10.84</DG1.3.1><DG1.3.1>R10.84</DG1. 3.1><DG LDL/HDL 1.24 1.00-3.55 [facility] ([facility]) FASTING 8 HOUR~.~.~<DG1.3.1>R10.84</DG1.3.1><DG1.3.1>R10.84</DG1.3.1><DG1.3.1>R10.84</DG1. 3.1><DG Risk Factor 2.7 3.4-4.9 Below low normal [facility] ([facility]) FASTING 8 HOUR~.~.~<DG1.3.1>R10.84</DG1.3.1><DG1.3.1>R10.84</DG1.3.1><DG1.3.1>R10.84</DG1. 3.1><DG LDL 61 mg/dL 65-175 Below low normal [facility] ([facility]) FASTING 8 HOUR~.~.~<DG1.3.1>R10.84</DG1.3.1><DG1.3.1>R10.84</DG1.3.1><DG1.3.1>R10.84</DG1. 3.1><DG ID Date Data Source [id number] 06/25/2020 07:53:00 AM EDT [facility] ([facility]) Name Value Range Interpretation Code Description Data Valentina rce(s) Supporting Document(s) Hemoglobin A1c/Hemoglobin.total in Blood 8.2 % 4.4-6.1 Above high normal [facility] ([facility]) FASTING 8 HOUR~.~.~<DG1.3.1>R10.84</DG1.3.1><DG1.3.1>R10.84</DG1.3.1><DG1.3.1>R10.84</DG1. 3.1><DG Thyrotropin [Units/volume] in Serum or Plasma 2.06 uIU/mL 0.47-5.01 [facility] ([facility]) FASTING 8 HOUR~.~.~<DG1.3.1>R10.84</DG1.3.1><DG1.3.1>R10.84</DG1.3.1><DG1.3.1>R10.84</DG1. 3.1><DG ID Date Data Source [id number] 06/25/2020 07:53:00 AM EDT [facility] ([facility]) Name Value Range Interpretation Code Description Data Valentina rce(s) Supporting Document(s) Comprehensive [employer] Laboratory test result [facility] ([facility]) FASTING 8 HOUR~.~.~<DG1.3.1>R10.84</DG1.3.1><DG1.3.1>R10.84</DG1.3.1><DG1.3.1>R10.84</DG1. 3.1><DG Chloride 103 meq/L 98-107 [facility] ([facility]) FASTING 8 HOUR~.~.~<DG1.3.1>R10.84</DG1.3.1><DG1.3.1>R10.84</DG1.3.1><DG1.3.1>R10.84</DG1. 3.1><DG Sodium 137 meq/L 134-153 [facility] ([facility]) FASTING 8 HOUR~.~.~<DG1.3.1>R10.84</DG1.3.1><DG1.3.1>R10.84</DG1.3.1><DG1.3.1>R10.84</DG1. 3.1><DG Potassium 3.7 meq/L 3.6-5.0 [facility] ([facility]) FASTING 8 HOUR~.~.~<DG1.3.1>R10.84</DG1.3.1><DG1.3.1>R10.84</DG1.3.1><DG1.3.1>R10.84</DG1. 3.1><DG Glucose 164 mg/dL 65-110 Above high normal [facility] ([facility]) FASTING 8 HOUR~.~.~<DG1.3.1>R10.84</DG1.3.1><DG1.3.1>R10.84</DG1.3.1><DG1.3.1>R10.84</DG1. 3.1><DG Co2 26 meq/L 22-30 [facility] ([facility]) FASTING 8 HOUR~.~.~<DG1.3.1>R10.84</DG1.3.1><DG1.3.1>R10.84</DG1.3.1><DG1.3.1>R10.84</DG1. 3.1><DG BUN 7 mg/dL 7-21 [facility] ([facility]) FASTING 8 HOUR~.~.~<DG1.3.1>R10.84</DG1.3.1><DG1.3.1>R10.84</DG1.3.1><DG1.3.1>R10.84</DG1. 3.1><DG Creatinine 0.6 mg/dL 0.7-1.5 Below low normal [facility] ( [facility]) FASTING 8 HOUR~.~.~<DG1.3.1>R10.84</DG1.3.1><DG1.3.1>R10.84</DG1.3.1><DG1.3.1>R10.84</DG1. 3.1><DG Total Protein 7.8 g/dL 6.3-8.2 [facility] ([facility]) FASTING 8 HOUR~.~.~<DG1.3.1>R10.84</DG1.3.1><DG1.3.1>R10.84</DG1.3.1><DG1.3.1>R10.84</DG1. 3.1><DG BUN/Creat 12 8-27 [facility] ([facility]) FASTING 8 HOUR~.~.~<DG1.3.1>R10.84</DG1.3.1><DG1.3.1>R10.84</DG1.3.1><DG1.3.1>R10.84</DG1. 3.1><DG Globulin 3.7 GM/DL 2.4-3.2 Above high normal [facility] ([facility]) FASTING 8 HOUR~.~.~<DG1.3.1>R10.84</DG1.3.1><DG1.3.1>R10.84</DG1.3.1><DG1.3.1>R10.84</DG1. 3.1><DG A/G Ratio 1.1 0.8-2.0 [facility] ([facility]) FASTING 8 HOUR~.~.~<DG1.3.1>R10.84</DG1.3.1><DG1.3.1>R10.84</DG1.3.1><DG1.3.1>R10.84</DG1. 3.1><DG Albumin 4.1 g/dL 3.9-5.0 [facility] ([facility]) FASTING 8 HOUR~.~.~<DG1.3.1>R10.84</DG1.3.1><DG1.3.1>R10.84</DG1.3.1><DG1.3.1>R10.84</DG1. 3.1><DG Calcium 8.8 mg/dL 8.4-10.2 [facility] ([facility]) FASTING 8 HOUR~.~.~<DG1.3.1>R10.84</DG1.3.1><DG1.3.1>R10.84</DG1.3.1><DG1.3.1>R10.84</DG1. 3.1><DG Total Bili 0.9 mg/dL 0.2-1.3 [facility] ([facility]) FASTING 8 HOUR~.~.~<DG1.3.1>R10.84</DG1.3.1><DG1.3.1>R10.84</DG1.3.1><DG1.3.1>R10.84</DG1. 3.1><DG Alkaline Phos 78 U/L 38-126 [facility] ([facility]) FASTING 8 HOUR~.~.~<DG1.3.1>R10.84</DG1.3.1><DG1.3.1>R10.84</DG1.3.1><DG1.3.1>R10.84</DG1. 3.1><DG SGPT/Alt 37 U/L 7-56 [facility] ([facility]) FASTING 8 HOUR~.~.~<DG1.3.1>R10.84</DG1.3.1><DG1.3.1>R10.84</DG1.3.1><DG1.3.1>R10.84</DG1. 3.1><DG Sgot/Ast 30 U/L 5-40 [facility] ([facility]) FASTING 8 HOUR~.~.~<DG1.3.1>R10.84</DG1.3.1><DG1.3.1>R10.84</DG1.3.1><DG1.3.1>R10.84</DG1. 3.1><DG Anion Gap 8.0 mmol/L 8.0-16.0 [facility] ([facility]) FASTING 8 HOUR~.~.~<DG1.3.1>R10.84</DG1.3.1><DG1.3.1>R10.84</DG1.3.1><DG1.3.1>R10.84</DG1. 3.1><DG Age 50 yrs [facility] ([facility]) FASTING 8 HOUR~.~.~<DG1.3.1>R10.84</DG1.3.1><DG1.3.1>R10.84</DG1.3.1><DG1.3.1>R10.84</DG1. 3.1><DG Non-Aa GFR Laboratory test result [facility] ([facility]) FASTING 8 HOUR~.~.~<DG1.3.1>R10.84</DG1.3.1><DG1.3.1>R10.84</DG1.3.1><DG1.3.1>R10.84</DG1. 3.1><DG Afr Amer GFR Laboratory test result [facility] ([facility]) FASTING 8 HOUR~.~.~<DG1.3.1>R10.84</DG1.3.1><DG1.3.1>R10.84</DG1.3.1><DG1.3.1>R10.84</DG1. 3.1><DG ID Date Data Source [id number] 06/25/2020 07:53:00 AM EDT [facility] ([facility]) Name Value Range Interpretation Code Description Data Valentina rce(s) Supporting Document(s) CBC W/Automated Diff Laboratory test result [facility] ([facility]) FASTING 8 HOUR~.~.~<DG1.3.1>R10.84</DG1.3.1><DG1.3.1>R10.84</DG1.3.1><DG1.3.1>R10.84</DG1. 3.1><DG RBC 4.93 10^6/uL 4.50-6.30 [facility] ([facility]) FASTING 8 HOUR~.~.~<DG1.3.1>R10.84</DG1.3.1><DG1.3.1>R10.84</DG1.3.1><DG1.3.1>R10.84</DG1. 3.1><DG WBC 1.9 10^3/uL 4.2-11.0 Below low normal [facility] ([facility]) FASTING 8 HOUR~.~.~<DG1.3.1>R10.84</DG1.3.1><DG1.3.1>R10.84</DG1.3.1><DG1.3.1>R10.84</DG1. 3.1><DG Hemoglobin 15.7 g/dL 14.0-16.0 [facility] ([facility]) FASTING 8 HOUR~.~.~<DG1.3.1>R10.84</DG1.3.1><DG1.3.1>R10.84</DG1.3.1><DG1.3.1>R10.84</DG1. 3.1><DG Hematocrit 46.0 % 41.0-51.0 [facility] ([facility]) FASTING 8 HOUR~.~.~<DG1.3.1>R10.84</DG1.3.1><DG1.3.1>R10.84</DG1.3.1><DG1.3.1>R10.84</DG1. 3.1><DG MCHC 34.1 g/dL 31.0-36.0 [facility] ([facility]) FASTING 8 HOUR~.~.~<DG1.3.1>R10.84</DG1.3.1><DG1.3.1>R10.84</DG1.3.1><DG1.3.1>R10.84</DG1. 3.1><DG MCV 93.3 fL 80.0-94.0 [facility] ([facility]) FASTING 8 HOUR~.~.~<DG1.3.1>R10.84</DG1.3.1><DG1.3.1>R10.84</DG1.3.1><DG1.3.1>R10.84</DG1. 3.1><DG MCH 31.8 pg 27.0-34.0 [facility] ([facility]) FASTING 8 HOUR~.~.~<DG1.3.1>R10.84</DG1.3.1><DG1.3.1>R10.84</DG1.3.1><DG1.3.1>R10.84</DG1. 3.1><DG RDW 14.1 % 11.5-14.8 [facility] ([facility]) FASTING 8 HOUR~.~.~<DG1.3.1>R10.84</DG1.3.1><DG1.3.1>R10.84</DG1.3.1><DG1.3.1>R10.84</DG1. 3.1><DG Platelets 114 10^3/uL 150-450 Below low normal [facility] ([facility]) FASTING 8 HOUR~.~.~<DG1.3.1>R10.84</DG1.3.1><DG1.3.1>R10.84</DG1.3.1><DG1.3.1>R10.84</DG1. 3.1><DG MPV 9.7 fL 7.4-10.4 [facility] ([facility]) FASTING 8 HOUR~.~.~<DG1.3.1>R10.84</DG1.3.1><DG1.3.1>R10.84</DG1.3.1><DG1.3.1>R10.84</DG1. 3.1><DG Lymph 41.9 % 25.0-40.0 Above high normal [facility] ([facility]) FASTING 8 HOUR~.~.~<DG1.3.1>R10.84</DG1.3.1><DG1.3.1>R10.84</DG1.3.1><DG1.3.1>R10.84</DG1. 3.1><DG Neut 31.3 % 37.0-80.0 Below low normal [facility] ( [facility]) FASTING 8 HOUR~.~.~<DG1.3.1>R10.84</DG1.3.1><DG1.3.1>R10.84</DG1.3.1><DG1.3.1>R10.84</DG1. 3.1><DG Grimes 23.1 % 3.0-8.0 Above high normal [facility] ([facility]) FASTING 8 HOUR~.~.~<DG1.3.1>R10.84</DG1.3.1><DG1.3.1>R10.84</DG1.3.1><DG1.3.1>R10.84</DG1. 3.1><DG Baso 0.5 % 0.0-2.0 [facility] ([facility]) FASTING 8 HOUR~.~.~<DG1.3.1>R10.84</DG1.3.1><DG1.3.1>R10.84</DG1.3.1><DG1.3.1>R10.84</DG1. 3.1><DG Eos 3.2 % 0.0-7.0 [facility] ([facility]) FASTING 8 HOUR~.~.~<DG1.3.1>R10.84</DG1.3.1><DG1.3.1>R10.84</DG1.3.1><DG1.3.1>R10.84</DG1. 3.1><DG %NRBC 0.0 % 0.0-0.0 [facility] ([facility]) FASTING 8 HOUR~.~.~<DG1.3.1>R10.84</DG1.3.1><DG1.3.1>R10.84</DG1.3.1><DG1.3.1>R10.84</DG1. 3.1><DG #Neut 0.58 10^3/uL 2.00-6.90 Below low normal [facility] ([facility]) FASTING 8 HOUR~.~.~<DG1.3.1>R10.84</DG1.3.1><DG1.3.1>R10.84</DG1.3.1><DG1.3.1>R10.84</DG1. 3.1><DG %Ig 0.0 % 0.0-0.0 [facility] ([facility]) FASTING 8 HOUR~.~.~<DG1.3.1>R10.84</DG1.3.1><DG1.3.1>R10.84</DG1.3.1><DG1.3.1>R10.84</DG1. 3.1><DG #Grimes 0.43 10^3/uL 0.00-0.90 [facility] ([facility]) FASTING 8 HOUR~.~.~<DG1.3.1>R10.84</DG1.3.1><DG1.3.1>R10.84</DG1.3.1><DG1.3.1>R10.84</DG1. 3.1><DG #Lymph 0.78 10^3/uL 0.60-3.40 [facility] ([facility]) FASTING 8 HOUR~.~.~<DG1.3.1>R10.84</DG1.3.1><DG1.3.1>R10.84</DG1.3.1><DG1.3.1>R10.84</DG1. 3.1><DG #Baso 0.01 10^3/uL 0.00-0.20 [facility] ([facility]) FASTING 8 HOUR~.~.~<DG1.3.1>R10.84</DG1.3.1><DG1.3.1>R10.84</DG1.3.1><DG1.3.1>R10.84</DG1. 3.1><DG #Eos 0.06 10^3/uL 0.00-0.70 [facility] ([facility]) FASTING 8 HOUR~.~.~<DG1.3.1>R10.84</DG1.3.1><DG1.3.1>R10.84</DG1.3.1><DG1.3.1>R10.84</DG1. 3.1><DG #Ig 0.00 10^3/uL 0.00-0.10 [facility] ([facility]) FASTING 8 HOUR~.~.~<DG1.3.1>R10.84</DG1.3.1><DG1.3.1>R10.84</DG1.3.1><DG1.3.1>R10.84</DG1. 3.1><DG Manual Diff Laboratory test result [facility] ([facility]) FASTING 8 HOUR~.~.~<DG1.3.1>R10.84</DG1.3.1><DG1.3.1>R10.84</DG1.3.1><DG1.3.1>R10.84</DG1. 3.1><DG #NRBC 0.00 10^3/uL 0.00-0.00 [facility] ([facility]) FASTING 8 HOUR~.~.~<DG1.3.1>R10.84</DG1.3.1><DG1.3.1>R10.84</DG1.3.1><DG1.3.1>R10.84</DG1. 3.1><DG Band 1 % 0-5 [facility] ([facility]) FASTING 8 HOUR~.~.~<DG1.3.1>R10.84</DG1.3.1><DG1.3.1>R10.84</DG1.3.1><DG1.3.1>R10.84</DG1. 3.1><DG Segs 31 % 37-80 Below low normal [facility] ([facility]) FASTING 8 HOUR~.~.~<DG1.3.1>R10.84</DG1.3.1><DG1.3.1>R10.84</DG1.3.1><DG1.3.1>R10.84</DG1. 3.1><DG %Lymph 53 % 25-40 Above high normal [facility] ([facility]) FASTING 8 HOUR~.~.~<DG1.3.1>R10.84</DG1.3.1><DG1.3.1>R10.84</DG1.3.1><DG1.3.1>R10.84</DG1. 3.1><DG %Eos 1 % 0-7 [facility] ([facility]) FASTING 8 HOUR~.~.~<DG1.3.1>R10.84</DG1.3.1><DG1.3.1>R10.84</DG1.3.1><DG1.3.1>R10.84</DG1. 3.1><DG %Grimes 14 % 3-8 Above high normal [facility] ([facility]) FASTING 8 HOUR~.~.~<DG1.3.1>R10.84</DG1.3.1><DG1.3.1>R10.84</DG1.3.1><DG1.3.1>R10.84</DG1. 3.1><DG RBC Morph Laboratory test result [facility] ([facility]) FASTING 8 HOUR~.~.~<DG1.3.1>R10.84</DG1.3.1><DG1.3.1>R10.84</DG1.3.1><DG1.3.1>R10.84</DG1. 3.1><DG PLT Est Laboratory test result Abnormal (applies to non -numeric results) [facility] ([facility]) FASTING 8 HOUR~.~.~<DG1.3.1>R10.84</DG1.3.1><DG1.3.1>R10.84</DG1.3.1><DG1.3.1>R10.84</DG1. 3.1><DG ID Date Data Source [id number] 06/25/2020 10:23:00 AM EDT [facility] Name Value Range Interpretation Code Description Data Valentina rce(s) Supporting Document(s) Thyrotropin [Units/volume] in Serum or Plasma by Detec tion limit <= 0.05 mIU/L 2.06 uIU/mL 0.47 - 5.01 [facility] ID Date Data Source [id number] 06/25/2020 10:23:00 AM EDT [facility] Name Value Range Interpretation Code Description Data Valentina rce(s) Supporting Document(s) Calcidiol [Moles/volume] in Serum or Plasma 19 NG/ML [facility] VITAMIN-D(2 5HYDROXY) Deficiency: <=20 ng/ml Insufficiency: 21-29 ng/ml Preferred level: => 30 ng/ml ID Date Data Source [id number] 06/25/2020 10:15:00 AM T [facility] Name Value Range Interpretation Code Description Data Valentina rce(s) Supporting Document(s) CBC W/AUTOMATED DIFF [facility] COMPLETE BLOOD COUNT Leukocytes [#/volume] in Blood by Automated count 1.9 10^3/uL 4.2 - 1 1.0 L [facility] Erythrocytes [#/volume] in Blood by Automated count 4.93 10^6/uL 4. 50 - 6.30 [facility] Hemoglobin [Mass/volume] in Blood 15.7 g/dL 14.0 - 16.0 [facility] Hematocrit [Volume Fraction] of Blood by Automated count 46.0 % 4 1.0 - 51.0 [facility] Erythrocyte mean corpuscular volume [Entitic volume] by Auto mated count 93.3 fL 80.0 - 94.0 [facility] Erythrocyte mean corpuscular hemoglobin [Entitic mass] by Automated count 31.8 pg 27.0 - 34.0 [facility] Erythrocyte mean corpuscular hemoglobin concentration [Mass/volume] by Automated count 34.1 g/dL 31.0 - 36.0 [facility] Erythrocyte distribution width [Ratio] by Automated count 14.1 % 11.5 - 14.8 [facility] Platelets [#/volume] in Blood by Automated count 114 10^3/uL 150 - 45 0 L [facility] Platelet mean volume [Entitic volume] in Blood by Automated count 9.7 fL 7.4 - 10.4 [facility] Neutrophils/100 leukocytes in Blood by Automated count 31.3 % 37. 0 - 80.0 L [facility] Lymphocytes/100 leukocytes in Blood by Manual count 41.9 % 25.0 - 40.0 H [facility] Monocytes/100 leukocytes in Blood by Automated count 23.1 % 3.0 - 8.0 H [facility] Eosinophils/100 leukocytes in Blood by Automated count 3.2 % 0.0 - 7.0 [facility] Basophils/100 leukocytes in Blood by Automated count 0.5 % 0.0 - 2.0 [facility] %[facility] 0.0 % [facility] % 0.0 - 0.0 [facility] al Neutrophils [#/volume] in Blood by Automated count 0.58 10^3/uL 2.00 - 6.90 L [facility] Lymphocytes [#/volume] in Blood by Automated count 0.78 10^3/uL 0.60 - 3.40 [facility] Monocytes [#/volume] in Blood by Automated count 0.43 10^3/uL 0.00 - 0.90 [facility] Eosinophils [#/volume] in Blood by Automated count 0.06 10^3/uL 0.00 - 0.70 [facility] Basophils [#/volume] in Blood by Automated count 0.01 10^3/uL 0.00 - 0.20 [facility] #IG 0.00 10^3/uL 0.00 - 0.10 [facility] #NRBC 0.00 10^3/uL 0.00 - 0.00 [facility] MANUAL DIFF SEE BELOW [facility] Segmented neutrophils/100 leukocytes in Blood by Manual count 31 % 37 - 80 L [facility] BAND 1 % 0 - 5 [facility] %LYMPH 53 % 25 - 40 H [facility] %MONO 14 % 3 - 8 H [facility] %EOS 1 % 0 - 7 [facility] RBC MORPH SEE BELOW [facility] { SICKLE CELL (NORMAL: NONE SEEN ) Platelet adequacy [Presence] in Blood by Light microscopy DE CREASED NORMAL: NORMAL A [facility] COMMENT: ID Date Data Source [id number] 06/25/2020 10:03:00 AM EDT [facility] Name Value Range Interpretation Code Description Data Valentina rce(s) Supporting Document(s) Lipase [Enzymatic activity/volume] in Serum or Plasma 63 U/L 13 - 60 H [facility] ID Date Data Source [id number] 06/25/2020 10:03:00 AM EDT [facility] Name Value Range Interpretation Code Description Data Valentina rce(s) Supporting Document(s) CVE PANEL [facility] al LIPID PANEL Cholesterol [Mass/volume] in Serum or Plasma 131 MG/DL 131 - 200 [facility] Deprecated Triglyceride [Mass/volume] in Serum or Plasma 138 MG/DL 3 5 - 160 [facility] HDL 49 MG/DL 29 - 86 [facility] Cholesterol in LDL [Mass/volume] in Serum or Plasma by Direc t assay 61 mg/dL 65 - 175 L [facility] Cholesterol.total/Cholesterol in HDL [Mass Ratio] in Serum o r Plasma 2.7 3.4 - 4.9 L [facility] LDL/HDL 1.24 1.00 - 3.55 [facility] CVE RISK CHOL/HDL LDL/HDLMEN: 1/2 AVERAGE 3.43 1.00 AVERAGE 4.97 3.55 2X AVERAGE 9.55 6.25 3X AVERAGE 23.99 7.99WOMEN: 1/2 AVERAGE 3.27 1.47 AVERAGE 4.44 3.22 2X AVERAGE 7.05 5.03 3X AVERAGE 11.04 6.14 ID Date Data Source [id number] 06/25/2020 10:03:00 AM EDT [facility] Name Value Range Interpretation Code Description Data Valentina rce(s) Supporting Document(s) COMPREHENSIVE METABOLIC PANEL [facility] COMPREHENSIVE METABOLIC PANEL Sodium [Moles/volume] in Serum or Plasma 137 mEq/L 134 - 153 [facility] Potassium [Moles/volume] in Serum or Plasma 3.7 mEq/L 3.6 - 5.0 [facility] Chloride [Moles/volume] in Serum or Plasma 103 mEq/L 98 - 107 [facility] Carbon dioxide, total [Moles/volume] in Serum or Plasma 26 MEQ/L 22 - 30 [facility] Glucose [Mass/volume] in Serum or Plasma 164 MG/DL 65 - 110 H [facility] BUN 7 MG/DL 7 - 21 [facility] Creatinine [Mass/volume] in Serum or Plasma 0.6 MG/DL 0.7 - 1.5 L [facility] BUN/CREAT 12 8 - 27 [facility] al Protein [Mass/volume] in Serum or Plasma 7.8 G/DL 6.3 - 8.2 [facility] Albumin [Mass/volume] in Serum or Plasma 4.1 G/DL 3.9 - 5.0 [facility] Globulin [Mass/volume] in Serum by calculation 3.7 GM/DL 2.4 - 3.2 H [facility] A/G RATIO 1.1 0.8 - 2.0 [facility] Calcium [Mass/volume] in Serum or Plasma 8.8 MG/DL 8.4 - 10.2 [facility] Bilirubin.total [Mass/volume] in Serum or Plasma 0.9 MG/DL 0.2 - 1.3 [facility] Alkaline phosphatase [Enzymatic activity/volume] in Serum or Plasma 78 U/L 38 - 126 [facility] Aspartate aminotransferase [Enzymatic activity/volume] in Serum or Plasma 30 U/L 5 - 40 [facility] Alanine aminotransferase [Enzymatic activity/volume] in Seru m or Plasma 37 U/L 7 - 56 [facility] Anion gap 3 in Serum or Plasma 8.0 mmol/L 8.0 - 16.0 [facility] AGE 50 yrs [facility] al NON-AA GFR >60 mL/min [facility] AFR AMER GFR >60 mL/min [facility] Male GFR In terprentation [...] >32 mL/min Normal ID Date Data Source [id number] 06/25/2020 10:03:00 AM EDT [facility] Name Value Range Interpretation Code Description Data Valentina rce(s) Supporting Document(s) Amylase [Enzymatic activity/volume] in Serum or Plasma 92 U/L 30 - 110 [facility] ID Date Data Source [id number] 06/25/2020 09:59:00 AM EDT [facility] Name Value Range Interpretation Code Description Data Valentina rce(s) Supporting Document(s) Hemoglobin A1c/Hemoglobin.total in Blood 8.2 % 4.4 - 6.1 H [facility] {A1]{HB] Procedure Social History Code Duration Value Status Description Data Source(s ) Alcohol intake 11/18/2020 12:00:00 AM EST Ex-drinker (finding) comp leted Ex- drinker (finding) [facility] Tobacco use and exposure 11/18/2020 12:00:00 AM EST Current user co mpleted Current user [facility] Cigarette pack-years 11/18/2020 12:00:00 AM EST UNK [facility] Cigarettes smoked current (pack per day) - Reported 11/18/19 12:00:00 AM EST UNK [facility] Smoking 11/18/2020 12:00:00 AM EST Former smoker completed Former smoker [facility] Alcohol intake 10/28/2020 12:00:00 AM EST Not Currently completed [facility] Cigarette pack-years 10/28/2020 12:00:00 AM EST UNK completed [facility] Cigarettes smoked current (pack per day) - Reported 10/28/20 12:00:00 AM EST UNK completed [facility] Smoking 10/28/2020 12:00:00 AM EST Former smoker completed Former smoker [facility] Alcohol intake 10/24/2020 12:00:00 AM EST Not Currently completed [facility] Cigarette pack-years 10/24/2020 12:00:00 AM EST UNK completed [facility] Cigarettes smoked current (pack per day) - Reported 10/24/20 12:00:00 AM EST UNK completed [facility] Smoking 10/24/2020 12:00:00 AM EST Former smoker completed Former smoker [facility] Vital Signs ID Date Data Source UNK Name Value Range Interpretation Code Description Data Source(s) Oxygen saturation in Arterial blood by Pulse oximetry 96 % 96 % [facility] ([facility]) Body temperature 97.7 [degF] 97.7 [degF] [facility] ([facility]) Heart rate 83 /min 83 /min [facility] ([facility]) Body surface area Derived from formula 2.46 m2 2.46 m2 [facility] Body mass index (BMI) [Ratio] 42.3 kg/m2 42.3 k g/m2 [facility] ([facility]) Body height 70 [in_i] 70 [in_i] [facility] ([facility]) 5'10" Body weight 133.869 kg 133.869 kg [facility] ([facility]) Body weight 295.12 [lb_av] 295.12 [lb_av] [facility] T ([facility]) Oxygen saturation in Arterial blood by Pulse oximetry 96 % 96 % [facility] ([facility]) Respiratory rate 16 /min 16 /min [facility] ( [facility]) Body temperature 97.9 [degF] 97.9 [degF] [facility] Heart rate 101 /min 101 /min [facility] ([facility]) Diastolic blood pressure 82 mm[Hg] 82 mm[Hg] [facility] ([facility]) Systolic blood pressure 124 mm[Hg] 124 mm[Hg] M [facility] ([facility]) Oxygen saturation in Arterial blood by Pulse oximetry 93 % 93 % [facility] Heart rate 87 /min 87 /min [facility] Diastolic blood pressure 70 mm[Hg] 70 mm[Hg] [facility] Systolic blood pressure 119 mm[Hg] 119 mm[Hg] [facility] Respiratory rate 20 /min 20 /min [facility] Body temperature 36.83 Zakia 36.83 Zakia [facility] Body mass index (BMI) [Ratio] 45.32 kg/m2 45.32 kg/m2 [facility] Body weight 135.172 kg 135.172 kg [facility] Body height 172.7 cm 172.7 cm [facility] Oxygen saturation in Arterial blood by Pulse oximetry 94 % 94 % [facility] Body mass index (BMI) [Ratio] 45.98 kg/m2 45.98 kg/m2 [facility] Body weight 137.168 kg 137.168 kg [facility] Body height 172.7 cm 172.7 cm [facility] Heart rate 100 /min 100 /min [facility] Diastolic blood pressure 73 mm[Hg] 73 mm[Hg] [facility] Systolic blood pressure 134 mm[Hg] 134 mm[Hg] [facility] Body surface area Derived from formula 2.51 m2 2.51 m2 [facility] ([facility], ) Body weight 136.080 kg 136.080 kg [facility] ([facility], ) [place] body weight 172 [lb_av] 172 [lb_av] [facility] T ([facility], ) Body mass index (BMI) [Ratio] 41.8 kg/m2 41.8 k g/m2 [facility] ([facility]) Body weight 300.00 [lb_av] 300.00 [lb_av] [facility] T ([facility], ) Body height 71 [in_i] 71 [in_i] [facility] ([facility]) 5'11" Diastolic blood pressure 82 mm[Hg] 82 mm[Hg] [facility] ([facility], ) Systolic blood pressure 150 mm[Hg] 150 mm[Hg] M [facility] ([facility], ) Body surface area Derived from formula 2.47 m2 2.47 m2 [facility] ([facility]) Body mass index (BMI) [Ratio] 42.8 kg/m2 42.8 k g/m2 [facility] ([facility]) Body height 70 [in_i] 70 [in_i] [facility] ([facility]) 5'10" Body weight 135.286 kg 135.286 kg [facility] ([facility]) Body weight 298.25 [lb_av] 298.25 [lb_av] [facility] ([facility]) Oxygen saturation in Arterial blood by Pulse oximetry 97 % 97 % [facility] ([facility]) Respiratory rate 16 /min 16 /min [facility] ( [facility]) Body temperature 98.0 [degF] 98.0 [degF] [facility] ([facility]) Heart rate 107 /min 107 /min [facility] ([facility]) Diastolic blood pressure 78 mm[Hg] 78 mm[Hg] [facility] ([facility]) Systolic blood pressure 118 mm[Hg] 118 mm[Hg] M [facility] ([facility]) Body surface area Derived from formula 2.54 m2 2.54 m2 [facility] ([facility]) Body mass index (BMI) [Ratio] 45.3 kg/m2 45.3 k g/m2 [facility] ([facility]) Body height 70 [in_i] 70 [in_i] [facility] ([facility]) 5'10" Body weight 143.338 kg 143.338 kg [facility] ([facility]) Body weight 316.00 [lb_av] 316.00 [lb_av] [facility] T ([facility]) Respiratory rate 16 /min 16 /min [facility] ( [facility]) Body temperature 98.2 [degF] 98.2 [degF] [facility] ([facility]) Heart rate 88 /min 88 /min [facility] ([facility]) Diastolic blood pressure 78 mm[Hg] 78 mm[Hg] [facility] Systolic blood pressure 148 mm[Hg] 148 mm[Hg] [facility] ([facility]) Body surface area Derived from formula 2.54 m2 2.54 m2 [facility] ([facility]) Body mass index (BMI) [Ratio] 45.4 kg/m2 45.4 k g/m2 [facility] ([facility]) Body height 70 [in_i] 70 [in_i] [facility] ([facility]) 5'10" Body weight 143.508 kg 143.508 kg [facility] ([facility]) Body weight 316.38 [lb_av] 316.38 [lb_av] [facility] T ([facility]) Oxygen saturation in Arterial blood by Pulse oximetry 95 % 95 % [facility] ([facility]) Respiratory rate 16 /min 16 /min [facility] ( [facility]) Body temperature 98.0 [degF] 98.0 [degF] [facility] Heart rate 97 /min 97 /min [facility] ([facility]) Diastolic blood pressure 86 mm[Hg] 86 mm[Hg] [facility] Systolic blood pressure 138 mm[Hg] 138 mm[Hg] [facility] Body surface area Derived from formula 2.53 m2 2.53 m2 [facility] ([facility]) Body mass index (BMI) [Ratio] 45.0 kg/m2 45.0 k g/m2 [facility] ([facility]) Body height 70 [in_i] 70 [in_i] [facility] ([facility]) 5'10" Body weight 142.430 kg 142.430 kg [facility] ([facility]) Body weight 314.00 [lb_av] 314.00 [lb_av] [facility] ([facility]) Body temperature 97.6 [degF] 97.6 [degF] [facility] ([facility]) Heart rate 97 /min 97 /min [facility] ([facility]) Diastolic blood pressure 62 mm[Hg] 62 mm[Hg] [facility] ([facility]) Systolic blood pressure 120 mm[Hg] 120 mm[Hg] [facility] Body surface area 2.53 m2 2.53 m2 [facility] ([facility]) Body surface area 2.56 m2 2.56 m2 [facility] ([facility]) Body mass index (BMI) [Ratio] 46.2 kg/m2 46.2 k g/m2 [facility] ([facility]) Body height 70 [in_i] 70 [in_i] [facility] ([facility]) 5'10" Body weight 146.059 kg 146.059 kg [facility] ([facility]) Body weight 322.00 [lb_av] 322.00 [lb_av] [facility] ([facility]) Oxygen saturation in Arterial blood by Pulse oximetry 96 % 96 % [facility] ([facility]) Respiratory rate 18 /min 18 /min [facility] ( [facility]) Body temperature 97.8 [degF] 97.8 [degF] [facility] ([facility]) Heart rate 97 /min 97 /min [facility] ([facility]) Diastolic blood pressure 62 mm[Hg] 62 mm[Hg] [facility] ([facility]) Systolic blood pressure 120 mm[Hg] 120 mm[Hg] [facility] Body surface area 2.55 m2 2.55 m2 [facility] ([facility]) Body mass index (BMI) [Ratio] 45.8 kg/m2 45.8 k g/m2 [facility] ([facility]) Body height 70 [in_i] 70 [in_i] [facility] ([facility]) 5'10" Body weight 144.812 kg 144.812 kg [facility] ([facility]) Body weight 319.25 [lb_av] 319.25 [lb_av] [facility] ([facility]) Oxygen saturation in Arterial blood by Pulse oximetry 97 % 97 % [facility] ([facility]) Respiratory rate 16 /min 16 /min [facility] ( [facility]) Body temperature 97.9 [degF] 97.9 [degF] [facility] ([facility]) Heart rate 88 /min 88 /min [facility] ([facility]) Diastolic blood pressure 84 mm[Hg] 84 mm[Hg] [facility] ([facility]) Systolic blood pressure 138 mm[Hg] 138 mm[Hg] [facility] ([facility]) ID Date Data Source [id number] 11/19/2020 12:22:[address] [facility] [place] Name Value Range Interpretation Code Description Data Source(s) WEIGHT RECORDED 294 lb 294 lb [facility] Body height Measured 70 in 70 in [facility] Patient Treatment Plan of Care Planned Activity Planned Date Details Description Data Source (s) Morphine Sulfate 20 MG/ML Oral Solution 11/16/2020 12:00:[address] [facility] Amylases 56896 UNT / Endopeptidases 3800 0 UNT / Lipase 68621 UNT Delayed Release Oral Capsule [Creon] 11/06/2020 12:00:[address] [facility]
[2021-01-03] MEDS ORDERED: ALBUTEROL 90 MCG/ACT 8GM HFA INHALER INH PRN (23:30)
[2021-01-03] MEDS ORDERED: GLUCOSE 4GM CHEW TABLET PO PRN (23:30)
[2021-01-03] MEDS ORDERED: RAMELTEON 8 MG TAB (ROZEREM) PO PRN (23:30)
[2021-01-03] MEDS ORDERED: GLUCAGON INJ 1MG VIAL SC PRN (23:30)
[2021-01-03] MEDS ORDERED: BISACODYL 10 MG SUPP PR PRN (23:30)
[2021-01-03] MEDS ORDERED: DEXTROSE 50% 50 ML SYRINGE IV PRN (23:30)
[2021-01-04 00:58] LABS: RSV AMPLIFICATION NEGATIVE (NEGATIVE)
[2021-01-04] MEDS ORDERED: HYDROmorphone HCL 2 MG/ML 1ML VIAL (J1170) IV PRN (01:59)
[2021-01-04 02:02] LABS: INR 1.02; PARTIAL THROMBOPLASTIN TIME 29.2 SECONDS (24.2-38.5); PROTHROMBIN TIME 13.6 SECONDS (12.5-14.3)
[2021-01-04 02:19] LABS: D-DIMER QUANT 2101.23 ng/ml (<500)
[2021-01-04 02:23] LABS: C REACTIVE PROTEIN QUANTITATIV < 0.30 MG/DL (0.00-0.30); CPK CREATINE PHOSPHOKINASE 45 U/L (39-308); FERRITIN 287 NG/ML (26-388); LDH LACTATE DEHYDROGENASE 168 U/L (87-241); TROPONIN I < 0.02 NG/ML (< 0.10)
[2021-01-04 02:30] VITALS: BP 139/78; O2SAT 96
[2021-01-04] MEDS: GABAPENTIN 100 MG CAP PO SCH ×2 (03:35→08:18)
[2021-01-04] MEDS: BISACODYL 5 MG TAB PO SCH ×2 (03:35→08:21)
[2021-01-04 04:06] LABS: HEMATOCRIT 41.6 % (42.0-52.0); HEMOGLOBIN 13.5 g/dl (13.5-17.5); MEAN CORPUSCULAR HEMOGLOBIN 31.3 pg (27.0-33.0); MEAN CORPUSCULAR HGB CONC 32.5 g/dl (32.0-36.5); MEAN CORPUSCULAR VOLUME 96.3 fl (80.0-96.0); PLATELET COUNT, AUTOMATED 130 10^3/uL (150-450); RED BLOOD COUNT 4.32 10^6/uL (4.30-6.10); WHITE BLOOD COUNT 2.6 10^3/uL (4.0-10.0)
[2021-01-04 04:34] LABS: ALBUMIN 3.3 GM/DL (3.2-5.2); ALT/SGPT 36 U/L (12-78); BILIRUBIN,TOTAL 0.5 MG/DL (0.2-1.0); BLOOD UREA NITROGEN 6 MG/DL (7-18); CALCIUM LEVEL 8.2 MG/DL (8.5-10.1); CARBON DIOXIDE LEVEL 25 MEQ/L (21-32); CHLORIDE LEVEL 108 MEQ/L (98-107); CREATININE FOR GFR 0.66 MG/DL (0.70-1.30); GLOMERULAR FILTRATION RATE > 60.0 (>60); GLUCOSE, FASTING 89 MG/DL (70-100); MAGNESIUM LEVEL 2.1 MG/DL (1.8-2.4); POTASSIUM SERUM 3.5 MEQ/L (3.5-5.1); SODIUM LEVEL 139 MEQ/L (136-145); TOTAL PROTEIN 8.1 GM/DL (6.4-8.2)
[2021-01-04] MEDS ORDERED: HumaLOG INSULIN (NovoLOG) PER UNIT SC SCH ×3 (07:30→21:00)
--- NOTE | 2021-01-04 07:55 | ECGEPIP ---
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
[2021-01-04 08:00] VITALS: BP 138/70
[2021-01-04] MEDS ORDERED: CREON-12 CAPSULE PO SCH (08:00)
[2021-01-04] MEDS ORDERED: LACTULOSE 20 GM/30 ML SYRUP UD PO SCH (08:00)
[2021-01-04] MEDS ORDERED: MORPHINE 10MG/0.5ML ORAL CONCENTRATE SOLUTION U/D SL PRN (08:10)
[2021-01-04 08:20] VITALS: BP 138/70
[2021-01-04] MEDS ORDERED: LACT20EL PO (08:46)
[2021-01-04] MEDS ORDERED: ENOXAPARIN 40MG/0.4ML SYRINGE (J1650 PER 10MG) SC SCH (09:00)
[2021-01-04] MEDS ORDERED: FLEET ENEMA PR SCH (09:00)
[2021-01-04] MEDS ORDERED: DOCUSATE SODIUM 100MG CAPSULE PO SCH (09:00)
[2021-01-04] MEDS ORDERED: PARoxetine 10MG TABLET PO SCH (09:00)
[2021-01-04] MEDS ORDERED: LEVEMIR (INSULIN DETEMIR) 1 UNITS/0.01ML SC SCH (09:00)
[2021-01-04] MEDS ORDERED: MIRALAX *UNIT DOSE* 17GM PACKET PO SCH (09:00)
--- NOTE | 2021-01-04 10:01 | DS.PDOC ---
Discharge Summary General Date of Admission Jan 03, 2021 at 22:58 Date of Discharge 01/04/2021 Discharge Summary PROCEDURES PERFORMED DURING STAY: [None]. ADMITTING DIAGNOSES / DISCHARGE DIAGNOSES: s/p Abdominal pain - possibly 2/2 constipation, less likely 2/2 pancreatic mass Pancreatic mass with likely liver mets IDDM Hypertension Leukopenia and thrombocytopenia - possibly 2/2 cirrhosis and enlarged spleen COVID-19 Depression/Anxiety DVT prophylaxis COMPLICATIONS/CHIEF COMPLAINT: Abdominal pain / Constipation HISTORY OF PRESENT ILLNESS: Patient is a 50-year-old male with a PMHx of Pancreatic adenocarcinoma, HTN, DM, Hemochromatosis with resultant liver cirrhosis, Hx of NHL, who presented to the ER the evening of 12/10. He had reporting constipation without a solid bowel movement for 2 days. Reports 1 loose stool on 01/02 and another just prior to presentation. He is on morphine at home, prescribed by palliative care, to help control his pain. Patient stated that he took his morphine, but didn't help, and thus presented to the ER. "Upon presentation he reported pain a 12/, generalized anteriorly, radiating bilaterally to his flanks and to his mid back. Reported a single bout of emesis. Has been passing gas. He was afebrile, heart rate, respiratory rate 22, blood pressure 144/92 maintaining an oxygen saturation of 98% on room air. CBC does show leukopenia with a WBC of 3.2, platelet count of 143. H/H of 14.7/43.8. BMP within normal limits. Liver function tests within normal limits. Lipase of 178. Plain film images were negative for acute findings, CT of the abdomen and pelvis with contrast it demonstrated increasing size of patient's known pancreatic mass. Patient was treated with 4 mg of IV morphine and subsequent 25 g of fentanyl for adequate control of his symptoms. Hospitalist team was contacted to admit the patient for pain management." I have seen and examined this patient at the bedside. Currently patient is very comfortable, ambulating in the room. Denies any abdominal pain. Has not experience any nausea, vomiting, chest pain, shortness breath, palpitations. Reports that his last bowel movement was yesterday; however, will induce a bowel movement today with enemas and lactulose prior to discharge. HOSPITAL COURSE: s/p Abdominal pain - possibly 2/2 constipation, less likely 2/2 pancreatic mass - Patient reports that her abdominal pain is resolved - Physical without any tenderness - No lactic acidosis / Normal amylase and lipase / no elevation of bilirubin / no transaminitis - Imaging noted below - Will continue with aggressive bowel regimen in setting of opiate use as an outpatient Pancreatic mass with likely liver mets - I reviewed the imaging findings with the patient and indicated current findings of worsening pancreatic mass - Patient has verbalized understanding and has reported that he will be getting a Chemo-Port placement on Wednesday and subsequently starting chemotherapy thereafter - As per medical record; patient is not a candidate to receive whipple procedure 2/2 Cirrhosis / Portal HTN - Has been recommended to start Chemotherapy with Abraxane / Gemcitabine; has been delayed because of Covid 19 infection - Patient is scheduled to receive a Chemo-Port placement on Wednesday (01/06/21) - will have outpatient follow-up - Patient follow with Dr. Espinosa, Dr. Curiel + Dr. Hubbard (GI and internal specialist in [place]) / Deborah Ozuna (Palliative care) - Will DC Dilaudid - Will resume home morphine and pancreatic IDDM - Will resume home regimen on discharge Hypertension - BP well controlled - c/w Lisinopril Leukopenia and thrombocytopenia - possibly 2/2 cirrhosis and enlarged spleen - Review of medical record indicates the patient's leukopenia has dated back to 2018 - No evidence of bleeding / infection COVID-19 - Patient is currently asymptomatic. Denies any chest pain, shortness breath, palpitations - Saturating well on room air - Patient was COVID positive on 12/02 - verified with [facility] - Will discuss with infectious control to discontinue precautions as per hospital policy Depression/Anxiety - c/w Paroxetine DVT prophylaxis - c/w Lovenox DISCHARGE MEDICATIONS: Please see below. ALLERGIES: Please see below. PHYSICAL EXAMINATION ON DISCHARGE: Vitals (See below) General: Ambulating in room, appears comfortable, in no acute distress, is awake and alert, oriented to person, place and time HEENT: NC, AT CVS: Regular rate and rhythm +S1S2 Lungs: Fair air entry b/l, auscultation is free of any wheezing, crackles or rhonchi Abdomen: Abdomen remains completely soft without any distention, no tenderness in any four-quadrant Extremities: Lower extremities are free of any edema, - Calf tenderness LABORATORY DATA: Please see below. IMAGING: Abdomen x-ray (01/03/21): No acute findings CT abdomen/pelvis with contrast (01/03/21): 5.6 cm mass in the pancreas, size 4.[address] on 09/29/2020, encases the right colic artery, but the superior mesenteric vein, suspicious for malignancy. Tissue correlation is suggested for pathologic diagnosis. Fat stranding around the head of the pancreas which may indicate acute pancreatitis. No pancreatic pseudocyst or abscess. Retroperitoneal lymphadenopathy, stable compared to prior CT. Nodular contour of the liver which has been seen with cirrhosis and is evidence of portal hypertension with splenomegaly and splenorenal varices. 13 mm indeterminate lesion in the spleen that is stable compared to prior CT may potentially indicate metastasis. Mild colonic divertic ulosis by evidence for diverticulitis. ACTIVITY: [As tolerated]. DISCHARGE PLAN: Follow-up with primary care provider, oncology and GI specialty within the next 7 days Remain compliant with treatment plan and medications Return to the ER if you experience any problems DISPOSITION: Home DISCHARGE CONDITION: [Stable]. TIME SPENT ON DISCHARGE: 35 minutes Vital Signs/I&Os Vital Signs Date Time Temp Pulse Resp B/P (MAP) Pulse Ox O2 Delivery O2 Flow Rate FiO2 01/04/21 08:20 138/70 01/04/21 08:00 67 18 94 Room Air 01/04/21 02:30 97.4 I&O- Last 24 Hours up to 6 AM 01/04/21 06:00 Intake Total 500 ml Balance 500 ml Laboratory Data Labs 24H Laboratory Tests 2 01/03/21 18:23: Immature Granulocyte % (Auto) 0.0, Neutrophils (%) (Auto) 39.7, Lymphocytes (%) (Auto) 36.8, Monocytes (%) (Auto) 21.4H, Eosinophils (%) (Auto) 1.5, Basophils (%) (Auto) 0.6, Neutrophils # (Auto) 1.3L, Lymphocytes # (Auto) 1.2L, Monocytes # (Auto) 0.7, Eosinophils # (Auto) 0.1, Basophils # (Auto) 0.0, Nucleated Red Blood Cells % (auto) 0.0, Total Bilirubin 0.7, Direct Bilirubin 0.2, Aspartate Amino Transf (AST/SGOT) 28, Alanine Aminotransferase (ALT/SGPT) 35, Alkaline Phosphatase 85, Total Creatine Kinase 55, Creatine Kinase MB < 1.0, Creatine Kinase MB Relative Index 1.82, Troponin I < 0.02, VF-Hvs-D-Type Natriuretic Peptide 74, Total Protein 8.6H, Albumin 3.6, Albumin/Globulin Ratio 0.7, Lipase 178 01/03/21 18:40: POC Glucose (Misc Panel) 73, POC Sodium (Misc Panel) 140, POC Potassium (Misc Panel) 3.5, POC Chloride (Misc Panel) 104, POC Total CO2 (Misc Panel) 23.0, POC Blood Urea Nitrogen (Misc Panel 4L, POC Ionized Calcium (Misc Panel) 5.0, POC Creatinine (Misc Panel) 0.4L, POC Hematocrit (Misc Panel) 45.0 01/04/21 00:09: Coronavirus (COVID-19)(PCR) POSITIVEA, Influenza Type A (RT-PCR) NEGATIVE, Influenza Type B (RT-PCR) NEGATIVE, Respiratory Syncytial Virus (PCR) NEGATIVE 01/04/21 01:13: Bedside Glucose (Misc Panel) 97 01/04/21 01:36: Nucleated Red Blood Cells % (auto) 0.0, Anion Gap 6L, Glomerular Filtration Rate > 60.0, Calcium Level 8.2L, Magnesium Level 2.1, Total Bilirubin 0.5, Aspartate Amino Transf (AST/SGOT) 23, Alanine Aminotransferase (ALT/SGPT) 36, Alkaline Phosphatase 77, Total Protein 8.1, Albumin 3.3, Albumin/Globulin Ratio 0.7 01/04/21 01:39: Prothrombin Time 13.6, Prothromb Time International Ratio 1.02, Activated Partial Thromboplast Time 29.2, Fibrinogen 304, D-Dimer, Quantitative 2101.23H, Ferritin 287, Lactate Dehydrogenase 168, Total Creatine Kinase 45, Troponin I < 0.02, C-Reactive Protein, Quantitative < 0.30 01/04/21 07:57: Bedside Glucose (Misc Panel) 77 01/04/21 09:16: CBC/BMP Laboratory Tests 01/03/21 18:23 01/04/21 01:36 FSBS Laboratory Tests Test 01/04/21 01:13 01/04/21 07:57 Range/Units Bedside Glucose (Misc Panel) 97 77 70-105 MG/DL Discharge Medications Scheduled Alogliptin Benzoate (Nesina) 25 Mg Tablet, 25 MG PO DAILY, (Reported) Bisacodyl (Bisacodyl) 5 Mg Tablet.dr, 5 MG PO BID, (Reported) Gabapentin (Neurontin) 100 Mg Cap, 100 MG PO TID, (Reported) Glipizide (Glipizide) 10 Mg Tablet, 10 MG PO BID, (Reported) Insulin Glargine,Hum.rec.anlog (Basaglar Kwikpen U-100) 100 Unit/1 Ml Insuln.pen, 15 UNIT SC DAILY, (Reported) Lactulose (Lactulose) 10 Gm/15 Ml Solution, 30 ML PO Q6H Use until 1-2 BM are acheived daily Lisinopril (Lisinopril) 10 Mg Tab, 10 MG PO DAILY, (Reported) Pancreatic Enzymes (Creon Dr 12,000 Units Capsule) 1 Each Capsule.dr, 12,000 UNITS PO TID, (Reported) Paroxetine HCl (Paroxetine) 10 Mg Tablet, 10 MG PO DAILY, (Reported) Pioglitazone HCl (Pioglitazone HCl) 15 Mg Tablet, 15 MG PO DAILY, (Reported) Scheduled PRN Albuterol Sulfate (Proair Hfa) 8.5 Gm Hfa.aer.ad, 2 PUFF INH Q4H PRN for wheezing, (Reported) Bisacodyl (Bisacodyl) 10 Mg Supp.rect, 10 MG PO DAILY PRN for CONSTIPATION, (Reported) Morphine Sulfate (Morphine Sulfate) 100 Mg/5 Ml Solution, 0.5 ML SL Q4H PRN for PAIN, (Reported) Allergies Coded Allergies: No Known Drug Allergies (Verified Allergy, Unknown, 09/29/20) aspartame (Verified Allergy, Unknown, 01/04/21) AUGUST CLARK MD Jan 04, 2021 10:00
== END 2021-01-04 11:15 | disposition home or self-care (01) | DRG 254 ==
LOC: M ED 16:02 → M ED INP 22:58 → ENRESERV 23:17 → M 4MAIN 01-04 01:57 → M ICU 01-04 02:43
PROVIDERS: ADMIT Internal Medicine; ATTEND Internal Medicine
DX: K59.00 Constipation, unspecified (principal); C78.7 Secondary malignant neoplasm of liver and intrahepatic bile duct; K76.6 Portal hypertension; E66.01 Morbid (severe) obesity due to excess calories; R16.1 Splenomegaly, not elsewhere classified; C25.9 Malignant neoplasm of pancreas, unspecified; K74.60 Unspecified cirrhosis of liver; I10 Essential (primary) hypertension; E11.9 Type 2 diabetes mellitus without complications; E83.110 Hereditary hemochromatosis; E78.5 Hyperlipidemia, unspecified; G47.33 Obstructive sleep apnea (adult) (pediatric); F17.220 Nicotine dependence, chewing tobacco, uncomplicated; Z86.16 Personal history of COVID-19; Z79.4 Long term (current) use of insulin; Z79.899 Other long term (current) drug therapy; Z91.018 Allergy to other foods; Z79.891 Long term (current) use of opiate analgesic

== ENCOUNTER → 2021-01-10 | Outpatient (CLI) | payer OTHER ==
[~2021-01-10] MED LIST changes: +ATIV1TAB10 PO; +BISA10SU27 PO; +BISA5TAB73 PO; +CREO12CA PO; +LACT20EL PO; +MORP1TAB19 PO; +MORP20SO3 SL
== END ==
LOC: M LABSMTC 11:06
PROVIDERS: ATTEND Anesthesiology
DX: Z01.812 Encounter for preprocedural laboratory examination (principal); Z20.822 Contact with and (suspected) exposure to COVID-19

== ENCOUNTER 2021-01-15 10:07 | Day surgery (SDC) | payer OTHER ==
[~2021-01-15] VITALS: Ht 180.3 cm; Wt 130.5 kg
[~2021-01-15 10:07] MED LIST changes: +LR 1,000 ML IV ONE; +ceFAZolin SOD 2 GM in IV 1 EA IV ONE
[2021-01-15] MEDS ORDERED: LIDOCAINE 1% SDV 30ML VIAL As Ordered ONE (10:57)
[2021-01-15] MEDS ORDERED: HEPARIN SOD (PORCINE) 5000UNITS/ML 1ML VIAL/SYRINGE As Ordered ONE (10:57)
[2021-01-15] MEDS ORDERED: ONDANSETRON 4MG/2ML VIAL As Ordered ONE (11:04)
[2021-01-15] MEDS ORDERED: MIDAZOLAM INJ 2MG/2ML VIAL (J2250 PER 1MG) As Ordered ONE (11:04)
[2021-01-15] MEDS ORDERED: dexameTHASONE 4 MG/ML 1ML VIAL (J1100 PER 1MG) As Ordered ONE (11:04)
[2021-01-15] MEDS ORDERED: LIDOCAINE 2% 100MG/5ML SDV (FOR ANES.) As Ordered ONE (11:04)
[2021-01-15] MEDS ORDERED: propofoL 200 MG/20 ML VIAL As Ordered ONE ×2 (11:04→15:39)
[2021-01-15] MEDS ORDERED: fentaNYL 100 MCG/2 ML INJECTION (J3010) As Ordered ONE (11:04)
--- NOTE | 2021-01-15 16:07 | REP ---
INDICATION: RIGHT INSERTION OF INFUSAPORT. COMPARISON: None. TECHNIQUE: Intraoperative fluoroscopic imaging using portable C-arm technique. FINDINGS: Images suggest catheter placement extending to the distal SVC. Total fluoroscopic time 5.5 seconds. IMPRESSION: Status post Cnzeid-T-Axol placement with tip in the SVC. <Electronically signed by Farhat Spear > 01/15/21 0910
[2021-01-15 17:05] VITALS: BP 137/84
--- NOTE | 2021-01-17 08:12 | RO ---
OPERATIVE NOTE DATE OF OPERATION: 01/15/2021 PREOPERATIVE DIAGNOSIS: Pancreatic cancer for chemotherapy. POSTOPERATIVE DIAGNOSIS: Pancreatic cancer for chemotherapy. PROCEDURE PERFORMED: Implantation of a right internal jugular vein Bard PowerPort ClearVUE using ultrasound and fluoroscopic guidance. SURGEON: Jerzy Tarango MD ANESTHESIA: Monitored anesthesia care with local of 1% Xylocaine. INDICATIONS FOR THE PROCEDURE: The patient is a 50-year-old man who had presented with obstructive jaundice. He was found to have a mass in the head of the pancreas. A bile duct stent was placed. Subsequent biopsy showed pancreatic cancer. He is now to begin chemotherapy for his pancreatic cancer and is in need of central venous access. He is now for placement of a port. OPERATIVE PROCEDURE: The patient was brought to the operating room and placed on the table in a supine position. He received monitored anesthesia care with sedation. The patient's right neck and upper chest were prepped and draped in the usual sterile fashion. The ultrasound was draped sterilely and used to inspect the right neck. The carotid artery and internal jugular vein were both clearly identified. The patient was placed into a Trendelenburg position to accentuate the vein. Local anesthesia was achieved in the skin overlying the vein and an 18-gauge needle was inserted, guided by the ultrasound with excellent return of venous blood. The guidewire was passed through the needle and the needle was removed. Fluoroscopy was performed to ensure that the guidewire was in good position. An 11 blade was used to make an approximately 6-8 mm transverse incision at the wire insertion site. With the patient still in Trendelenburg position, the peel-away sheath introducer was passed. The catheter, which had been flushed with heparinized saline, was then inserted through the peel-away sheath and the sheath was removed. The catheter was flushed with heparinized saline. Blood aspirated easily from the catheter. This was pulled back to approximately 15 cm at the skin surface. The patient was returned to a flat position and with fluoroscopy the catheter was positioned with the tip just about at the junction of the superior vena cava and the right atrium, and this was at [id number] -13 cm at the skin. Additional local anesthesia was achieved in the right infraclavicular fossa. An approximately 2.5-3 cm transverse skin incision was made. A subcutaneous pocket was created for placement of the port with hemostasis achieved using the cautery. The catheter was tunneled from the neck incision down to the infraclavicular site using the tunneler provided. The port was flushed with heparinized saline. The catheter was then cut to length and attached to the port using the locking ring. The port was then placed into the subcutaneous pocket. Two sutures of 3-0 Vicryl were placed through the silicone sheath of the port to tack the port to the underlying fascia. The port was accessed and blood aspirated easily and the port was flushed with heparinized saline. The skin incision in the infraclavicular site was approximated with interrupted simple sutures of buried 3-0 Vicryl. Both skin incisions were then closed with buried 5-0 Vicryl sutures. The port was accessed a final time and flushed with 100 units/ml heparin solution. The port placed was a Bard PowerPort ClearVUE. This was reference code [id number] and lot number [id number]. Both incisions were then sealed with Dermabond. The patient was then awakened in the operating room and moved to advanced recovery in stable condition. STEPHENIE
== END 2021-01-15 17:20 | disposition home or self-care (01) ==
LOC: M SDC 10:07
PROVIDERS: ATTEND Surgery
DX: C25.9 Malignant neoplasm of pancreas, unspecified (principal); Z45.2 Encounter for adjustment and management of vascular access device; I10 Essential (primary) hypertension; E11.9 Type 2 diabetes mellitus without complications; E78.49 Other hyperlipidemia; J45.909 Unspecified asthma, uncomplicated; K76.9 Liver disease, unspecified; E66.9 Obesity, unspecified; Z79.899 Other long term (current) drug therapy; F17.220 Nicotine dependence, chewing tobacco, uncomplicated; F12.10 Cannabis abuse, uncomplicated; Z91.018 Allergy to other foods
CPT/HCPCS: 36561; 76000; C1788; J0690; J1100; J1642; J1644; J2250; J2405; J3010

== ENCOUNTER → 2021-01-31 | Outpatient (CLI) | payer OTHER ==
[~2021-01-31] MED LIST changes: +AUGM500T34 PO; +GASTROGRAFIN SOLUTION 30ML (Q9963) As Ordered ONE; +ISOVUE-370 76% 100ML VIAL As Ordered ONE; +LIDO2.5C15 TOP; -LR 1,000 ML IV ONE; -ceFAZolin SOD 2 GM in IV 1 EA IV ONE
--- NOTE | 2021-01-31 12:11 | REP ---
INDICATION: PANCREATIC CA, INCREASING LFTS/BILIRUBIN. COMPARISON: Abdomen/pelvis CT of 01/03/2021 TECHNIQUE: Current study consists of the CT of the abdomen before and after IV contrast with immediate and delayed scanning after IV contrast. The pelvis is not included. FINDINGS: The patient's known mass in the head of the pancreas is again identified today measures up to 5.6 cm craniocaudad by 4.2 cm transversely by 5.1 cm AP does not appear significantly changed from the prior study. It displaces the superior mesenteric artery and vein. There is again fat stranding at the periphery of this mass, nonspecific, inflammation versus tumor spread. There is a common biliary duct stent traversing the pancreatic head as previously. There is no peripancreatic phlegmon, fluid collection or pancreatic cyst. The pancreatic duct does not appear dilated. The faintly visible hypodensity identified in the spleen previously is no longer identified. The hepatic parenchyma appears homogeneous. Surgical clips are again noted in the gallbladder fossa. The spleen measures 14 cm in diameter and is enlarged. Splenorenal varices are again identified. There is a faintly visible 11 mm hypodensity in the upper pole of the spleen as previously, nonspecific, but possibly a metastasis. There is no perihepatic or perisplenic ascites. The adrenals, kidneys and abdominal aorta are unremarkable. There are many periaortic lymph nodes some borderline enlarged not significantly changed from the prior study. The visualized bowel and mesentery are unremarkable except for mild wall thickening in the ascending colon, nonspecific but possibly colitis in the appropriate clinical setting. The appendix is unremarkable. No ascites is identified the visualized portion of the mesentery. IMPRESSION: The known mass in the pancreatic head is not significantly changed. It again displaces the superior mesenteric artery and vein. There is fat stranding at the periphery of this mass, nonspecific, scarring versus inflammation versus tumor spread. Common biliary duct stent is again seen traversing this mass in the pancreatic head. Splenomegaly and splenorenal varices are again identified suggestive of portal hypertension. There is periaortic adenopathy, not significantly changed. No ascites in the visualized portion of the abdomen. Wall thickening of the ascending colon, nonspecific but could represent infectious versus inflammatory colitis in the appropriate clinical setting. <Electronically signed by Isaac Lobato > 01/31/21 [id number]
== END ==
LOC: M RAD 10:05
PROVIDERS: ATTEND Internal Medicine Medical Oncology
DX: R94.5 Abnormal results of liver function studies (principal); C25.9 Malignant neoplasm of pancreas, unspecified
CPT/HCPCS: 74170; Q9963; Q9967

== ENCOUNTER 2021-05-23 14:10 | Emergency (ER) | payer OTHER ==
[~2021-05-23] VITALS: Ht 180.3 cm; Wt 111.3 kg
[~2021-05-23 14:10] MED LIST changes: +ENOX100I3 SQ; -GASTROGRAFIN SOLUTION 30ML (Q9963) As Ordered ONE; -ISOVUE-370 76% 100ML VIAL As Ordered ONE; +LIDO1CRE42 TOP; -LIDO2.5C15 TOP; +POTA10CA32 PO
[2021-05-23 15:57] LABS: BASO % 0.1 % (0.0-1.0); EOS % 0.3 % (0.0-3.0); HEMATOCRIT 40.3 % (42.0-52.0); HEMOGLOBIN 13.2 g/dl (13.5-17.5); LYMPH # 0.7 10^3/uL (1.5-5.0); LYMPH % 8.8 % (24.0-44.0); MEAN CORPUSCULAR HEMOGLOBIN 29.6 pg (27.0-33.0); MEAN CORPUSCULAR HGB CONC 32.8 g/dl (32.0-36.5); MEAN CORPUSCULAR VOLUME 90.4 fl (80.0-96.0); MONO # 0.5 10^3/uL (0.0-0.8); MONO % 6.3 % (2.0-8.0); NEUTROPHILS # 6.5 10^3/uL (1.5-8.5); NEUTROPHILS % 84.2 % (36.0-66.0); PLATELET COUNT, AUTOMATED 191 10^3/uL (150-450); RED BLOOD COUNT 4.46 10^6/uL (4.30-6.10); WHITE BLOOD COUNT 7.8 10^3/uL (4.0-10.0)
[2021-05-23 16:33] LABS: ALT/SGPT 24 U/L (12-78); BILIRUBIN,DIRECT 0.2 MG/DL (0.0-0.2); BILIRUBIN,TOTAL 0.8 MG/DL (0.2-1.0); BLOOD UREA NITROGEN 5 MG/DL (7-18); CALCIUM LEVEL 8.3 MG/DL (8.5-10.1); CARBON DIOXIDE LEVEL 28 MEQ/L (21-32); CHLORIDE LEVEL 101 MEQ/L (98-107); CREATININE FOR GFR 0.95 MG/DL (0.70-1.30); GLOMERULAR FILTRATION RATE > 60.0 (>60); GLUCOSE, FASTING 111 MG/DL (70-100); LIPASE 2814 U/L (73-393); POTASSIUM SERUM 3.3 MEQ/L (3.5-5.1); SODIUM LEVEL 138 MEQ/L (136-145)
[2021-05-23] MEDS ORDERED: MORPHINE 4 MG/ML 1ML VIAL/SYRINGE (J2270) IV ONE (18:15)
[2021-05-23] MEDS ORDERED: ONDANSETRON 4MG/2ML VIAL IV ONE (18:15)
[2021-05-23] MEDS ORDERED: ISOVUE-370 76% 100ML VIAL As Ordered ONE (18:44)
[2021-05-23] MEDS ORDERED: LR 1,000 ML IV ONE (18:50)
[2021-05-23] MEDS ORDERED: POTASSIUM CHLORIDE 10 MEQ SR TABLET PO ONE (18:50)
[2021-05-23 18:53] LABS: MAGNESIUM LEVEL 1.9 MG/DL (1.8-2.4)
[2021-05-23] MEDS ORDERED: NS 1,000 ML IV ONE (19:30)
--- NOTE | 2021-05-23 21:37 | REPVR ---
PROCEDURE INFORMATION: Exam: CT Abdomen And Pelvis With Contrast Exam date and time: 05/23/2021 8:12 PM Age: 50 years old Clinical indication: Abdominal pain, HX of pancreatic cancer with n/v TECHNIQUE: Imaging protocol: Computed tomography of the abdomen and pelvis with contrast. Radiation optimization: All CT scans at this facility use at least one of these dose optimization techniques: automated exposure control; mA and/or kV adjustment per patient size (includes targeted exams where dose is matched to clinical indication); or iterative reconstruction. Contrast material: ISOVUE 370; Contrast volume: 100 ml; Contrast route: INTRAVENOUS (IV); COMPARISON: 1. CT ABD W/O FOLL BY WITH CONTRAST 01/31/2021 11:[address] ABD PELVIS W/O CONTRAST 06/11/2015 4:11:26 PM FINDINGS: Lungs: There are calcified granulomas in the right middle lobe, right lower lobe, and left lower lobe are stable compared to the prior CT abdomen on 01/31/2021. The lungs were not fully imaged. Heart: No cardiomegaly or pericardial effusion. Liver: The attenuation of the liver is more than 40 Hounsfield units lower in attenuation compared to the spleen, which is compatible with fatty liver infiltration. The liver has a nodular contour, which can be seen with cirrhosis. Gallbladder and bile ducts: There has been a cholecystectomy. There is no fluid collection in the gallbladder fossa. There is pneumobilia in the intrahepatic biliary ducts. The stent in the common bile duct has migrated into the lumen of the gastric antrum since the CT abdomen on 01/31/2021. The common bile duct is dilated and measures 11 mm in diameter. No calcified stones are seen in the common bile duct. Pancreas: There is a mass in the head of the pancreas that measures 4 cm x 3.7 cm x 4.6 cm, which has decreased in size and previously measured 4.2 cm x 5.1 cm x 5.[address] abdomen on 01/31/2021. The pancreatic head mass abuts the posterior margins of the superior mesenteric vein and right colic artery. The pancreatic head mass also abuts the 2nd and 3rd portions of the duodenum. Spleen: The spleen is enlarged and measures 17.7 cm. The spleen is heterogeneous in appearance. Incidental note is made of a small accessory spleen. Adrenal glands: Normal. No mass. Kidneys and ureters: The kidneys are normal in appearance. No renal lesion is noted. No stones are noted in the kidneys or ureters. There is no hydronephrosis or hydroureter. There are no wedge-shaped areas of low attenuation in the kidneys to suggest pyelonephritis. There is no renal abscess or perinephric fluid collection. Stomach and bowel: There is no evidence for a bowel obstruction, diverticulosis, diverticulitis, perforated viscus, pneumatosis intestinalis, intussusception, or volvulus. The transverse colon, descending colon, and sigmoid colon are decompressed, limiting their optimal evaluation. There is apparent thickening of the wall of the transverse colon and descending colon. There is no pericolonic inflammatory fat stranding. Appendix: Normal. There is no evidence for appendicitis. Intraperitoneal space: No free air. No ascites. No abscess. Retroperitoneal space: No fluid collection. No mass. Vasculature: There are splenorenal varices that are similar in appearance compared to the prior CT abdomen on 01/31/2021. Mild atherosclerotic calcifications are present. Lymph nodes: There are calcified bilateral hilar lymph nodes, which represent calcified granulomas that are stable compared to the prior CT abdomen on 01/31/2021. There is peripancreatic, periportal, and retroperitoneal lymphadenopathy, which has progressed in the peripancreatic region since the prior CT abdomen and pelvis on 01/31/2021, with the largest peripancreatic lymph node measuring 5.1 cm (image 59 of the coronal series 302). Urinary bladder: There is thickening of the wall of the partially distended urinary bladder. Reproductive: There are calcifications in the prostate gland. The seminal vesicles are unremarkable. Bones/joints: There is no fracture or dislocation. No suspicious osteolytic or osteoblastic lesion. There is a sclerotic lesion in the left intertrochanteric femur that is stable compared to the prior CT abdomen and pelvis on 06/11/2015 and likely represents a bone island. There is osteoarthritis of both hips. There are degenerative changes involving the lumbar spine. Soft tissues: Unremarkable. No hernia. IMPRESSION: 1. Peripancreatic, periportal, and retroperitoneal lymphadenopathy, which has progressed in the peripancreatic region since the prior CT abdomen and pelvis on 01/31/2021. 2. 4 cm x 3.7 cm x 4.6 cm pancreatic head mass, which has decreased in size from 4.2 cm x 5.1 cm x 5.[address] abdomen on 01/31/2021. 3. Interval migration of the common bile duct stent into the lumen of the gastric antrum since the CT abdomen on 01/31/2021. 4. Apparent thickening of the wall of the transverse colon descending colon, which may be secondary to a colitis or the decompressed state of these portions of the bowel. 5. Nodular contour of the liver, which can be seen with cirrhosis, and there is splenomegaly and splenorenal varices. 6. Thickening of the wall of the urinary bladder, which may be secondary to its partially distended state, bladder wall hypertrophy, or cystitis. Correlation with urinalysis is suggested. Electronically signed by: Dennis Abbott On 05/23/2021 21:37:08 PM
[2021-05-23] MEDS ORDERED: METOCLOPRAMIDE INJ 10MG/2ML VIAL (J2765 PER 1) IV ONE (23:15)
[2021-05-24 00:15] VITALS: BP 123/67
== END 2021-05-24 00:55 | disposition home or self-care (01) ==
LOC: M ED 14:10
DX: C25.9 Malignant neoplasm of pancreas, unspecified (principal); E87.6 Hypokalemia; R11.2 Nausea with vomiting, unspecified; T45.1X5A Adverse effect of antineoplastic and immunosuppressive drugs, initial encounter; R16.1 Splenomegaly, not elsewhere classified; E11.9 Type 2 diabetes mellitus without complications; F33.9 Major depressive disorder, recurrent, unspecified; Z88.8 Allergy status to other drugs, medicaments and biological substances; Z79.899 Other long term (current) drug therapy; Z79.4 Long term (current) use of insulin
CPT/HCPCS: 74177; 80048; 80076; 83690; 83735; 85025; 93041; 96361; 96374; 96375; 99285; J2270; J2405; J2765; Q9967

== ENCOUNTER 2021-06-20 15:31 | Inpatient (IN) | payer OTHER ==
[~2021-06-20] VITALS: Ht 175.3 cm; Wt 99.1 kg
[~2021-06-20 15:31] MED LIST changes: +MORP1SOL5 SL; -MORP20SO3 SL
[2021-06-20 18:48] LABS: BASO # 0.1 10^3/uL (0.0-0.2); BASO % 0.3 % (0.0-1.0); EOS % 0.1 % (0.0-3.0); HEMATOCRIT 48.3 % (42.0-52.0); HEMOGLOBIN 17.3 g/dl (13.5-17.5); LYMPH # 1.1 10^3/uL (1.5-5.0); LYMPH % 6.7 % (24.0-44.0); MEAN CORPUSCULAR HEMOGLOBIN 30.4 pg (27.0-33.0); MEAN CORPUSCULAR HGB CONC 35.8 g/dl (32.0-36.5); MEAN CORPUSCULAR VOLUME 84.7 fl (80.0-96.0); MONO % 6.4 % (2.0-8.0); NEUTROPHILS # 13.7 10^3/uL (1.5-8.5); NEUTROPHILS % 85.7 % (36.0-66.0); PLATELET COUNT, AUTOMATED 227 10^3/uL (150-450)
[2021-06-20 19:09] LABS: INR 1.44; PROTHROMBIN TIME 17.9 SECONDS (12.7-14.5)
[2021-06-20 19:10] LABS: PARTIAL THROMBOPLASTIN TIME 27.6 SECONDS (25.9-37.0)
[2021-06-20 19:39] LABS: ALBUMIN 2.8 GM/DL (3.2-5.2); BILIRUBIN,DIRECT 0.4 MG/DL (0.0-0.2); BILIRUBIN,TOTAL 2.1 MG/DL (0.2-1.0); CALCIUM LEVEL 8.5 MG/DL (8.5-10.1); CREATININE FOR GFR 6.51 MG/DL (0.70-1.30); GLOMERULAR FILTRATION RATE 9.7 (>56); POTASSIUM SERUM 3.6 MEQ/L (3.5-5.1); TOTAL PROTEIN 10.8 GM/DL (6.4-8.2)
[2021-06-20] MEDS ORDERED: NS 1,000 ML IV ONE ×2 (19:45)
--- NOTE | 2021-06-20 19:48 | REP ---
INDICATION: cough and leukocytosis. COMPARISON: None. TECHNIQUE: AP view FINDINGS: The lungs are clear. A MediPort catheter is in place with the tip in the superior vena cava. There are small nodules in the upper lobes and in the lower lobes. The heart is not enlarged. There is no failure or effusion IMPRESSION: Multiple small nodules. No evidence of failure or pneumonia. <Electronically signed by Gurinder Kinsey > 06/20/211943
[2021-06-20 20:03] LABS: CK-MB VALUE MASS 2.5 NG/ML (<3.6); MB/CK RELATIVE INDEX 1.45 (< OR =4); TROPONIN I 0.05 NG/ML (< 0.10)
--- NOTE | 2021-06-20 20:27 | REPVR ---
PROCEDURE INFORMATION: Exam: CT Abdomen And Pelvis Without Contrast Exam date and time: 06/20/2021 7:39 PM Age: 51 years old Clinical indication: Nausea; Additional info: Nausea, abdominal pain and leukocytosis TECHNIQUE: Imaging protocol: Computed tomography of the abdomen and pelvis without contrast. Radiation optimization: All CT scans at this facility use at least one of these dose optimization techniques: automated exposure control; mA and/or kV adjustment per patient size (includes targeted exams where dose is matched to clinical indication); or iterative reconstruction. COMPARISON: CT ABD PELVIS WITH CONTRAST 05/23/2021 8:07 PM FINDINGS: Liver: Cirrhotic liver morphology with nodular liver surface. Gallbladder and bile ducts: Trace pneumobilia. No biliary duct dilation. Prior cholecystectomy. Pancreas: Ill-defined pancreatic head mass measuring approximately 4.2 cm, not significantly changed. Mild peripancreatic stranding. No pancreatic duct dilation or peripancreatic fluid collection. The pancreatic head mass is not separable from adjacent mesenteric vasculature but evaluation is limited without intravenous contrast. Spleen: Normal. No splenomegaly. Adrenal glands: Normal. No mass. Kidneys and ureters: Unremarkable. No calculi or hydronephrosis. Stomach and bowel: The stomach and 1st and 2nd portions of the duodenum are dilated with a moderate amount of fluid. There is abrupt narrowing of the duodenum posterior to the pancreatic head. Remainder of the small bowel is decompressed. Colon is unremarkable. No enteric inflammatory changes. Appendix: No evidence of appendicitis. Intraperitoneal space: No free air. No significant fluid collection. Vasculature: Unremarkable. No abdominal aortic aneurysm. Lymph nodes: Unremarkable. No enlarged lymph nodes. Urinary bladder: Unremarkable as visualized. Reproductive: Unremarkable as visualized. Bones/joints: Unremarkable. No acute fracture. Soft tissues: Unremarkable. IMPRESSION: 1. Partial duodenal obstruction related to the pancreatic head mass. 2. Pancreatic head mass is not significantly changed. Mild peripancreatic stranding may be related to acute or prior mild pancreatitis. No peripancreatic abscess. 3. Cirrhotic liver morphology. Electronically signed by: Carlos Thayer On 06/20/2021 20:26:50 PM
[2021-06-20] MEDS ORDERED: MOM 30ML SUSPENSION UDC PO PRN (21:05)
[2021-06-20] MEDS ORDERED: ACETAMINOPHEN TAB 650MG DOSE (2X325MG) PO PRN (21:05)
[2021-06-20] MEDS ORDERED: MAALOX 30 ML SUSP *UDC PO PRN (21:05)
--- NOTE | 2021-06-20 21:15 | HPEPDOC ---
[facility] Medical History & Physical Date of Admission Jun 20, 2021 Date of Service: Jun 20, [address] Brad Gregory Attending Physician: ADE CH MD History and Physical TIME OF SERVICE: 1150pm CHIEF COMPLAINT: feeling unwell HISTORY OF PRESENT ILLNESS: , a 51 yr old M, was last admitted in Dec of this year for abdominal pain that was attributed to constipation. Today he presented w c/o feeling bad for 2 months. For the last few day she has been vo miting, cant keep food down, and has been having episodes where he passes out for about 5 or 10 min. He also had mid 8/10 in severity abdominal pain and back pain. His last session of chemotherapy for pancreatic cancer was on April 22; he has not yet scheduled a follow up appointment yet for his next session. 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 He quit smoking tobacco products when he was diagnosed with NHL in 2010. FAMILY HISTORY: Father: Liver cancer / Mother: Colon cancer / Hereditary Diseases: Hemochromatosis / Paternal uncle with stomach cancer ALLERGIES: Please see below. HOME MEDICATIONS: Please see below. PHYSICAL EXAMINATION: Vital Signs Date Time Temp Pulse Resp B/P (MAP) Pulse Ox O2 Delivery O2 Flow Rate FiO2 06/20/21 15:32 97.2 113 16 98/53 (68) 97 Room Air 06/21/21 03:08 2.0 GENERAL APPEARANCE: well-nourished and developed HEENT: no scleral icterus / no temporal wasting CARDIOVASCULAR: RRR/NMRG/ no BLE edema LUNGS: CTAB on RA ABDOMEN: / his abdomen is soft/ he doesnt grimace when I palpate the abdomen MUSCULOSKELETAL: NCAT/ ROMIx 4 extremities INTEGUMENT: he is a bit pale but not flushed or diaphoretic / there ecchymosis surrounded by livedo recituliaris on the abdomen / he has an abrasion on his left ear with dried blood NEUROLOGICAL: CN 2-12 grossly intact /speech not dysarthric PSYCHIATRIC: A&Ox 3 / slightly anxious with a flat affect / able to understand and follow all commands LABORATORY DATA: 06/20/21 18:21 IMAGING: CT abd/pelvis IMPRESSION: 1. Partial duodenal obstruction related to the pancreatic head mass. 2. Pancreatic head mass is not significantly changed. Mild peripancreatic stranding may be related to acute or prior mild pancreatitis. No peripancreatic abscess. 3. Cirrhotic liver morphology. Chest xray IMPRESSION: Multiple small nodules. No evidence of failure or pneumonia. MICROBIOLOGY: Respiratory panel is neg ASSESSMENT: is a 51 yr old w pancreatic adenocarcinoma, remote hx of NHL, Liver cirrhosis 2/2 Hereditary hemochromatosis, HTN, DLP, IDDM, obesity, & Dysosmia with ANGEL who is admitted for SIRs vs Sepsis, hypotension, acute pancreatitis, hyponatremia, GERARDO. PLAN: 1 SIRS vs Sepsis SIRs criteria: HR 113 / WBC 16 / RR > 22 Source possibly GI or other TBD The lactic acid is elevated The NEW2S Score = 9 points = high risk Plan: admit to PCU / telemetry / Sepsis protocol w repeat lactic acid / despite not having a confirmed source of infection, bc he is immunocompromised and at high risk of deteriorating, we will start Zosyn and Vancomycin / IVF /f/u blood cx, UA w culture and MRSA / Acetaminophen PRN for fever / target MAP at of least 65 to 70 / f/u Is and Os with target UOP of at least 0.5 ml/kg/H / f/u FSBS w target serum glucose 140-180 while acutely ill / he elected to transition to DNR/DNI / will ask the day time team to consider consulting the Video Presentation Operator underground distribution engineer for co-management 2 Hypotension Likely 2/2 dehydration and vomiting There is a possibility that the hypotension might be due to adrenal insufficiency. I suspect this because he is on decadron 2mg daily (I am not sure why he is on this med). It is to early too diagnose septic shock because he hasnt received enough fluids (based on his weight). Plan: IVF / hold ACEI (he has HTN at baseline) & hold oral decadrone / start hydrocortisone 100mg IV followed by IVF then c/w hydrocortisone 50mg IV Q6H / check cortisol stim test and TSH to r/o co-existing thyroid disorder 3 GERARDO 2/2 vomiting, poor PO intake, and ACEI Plan: monitor UOP / IVF / f/u renal panel, Ulytes, PTH and Phosphorus / renal US / hold ACEI / f/u w in the morning 4 Acute Pancreatitis He meets the Modified [place] Criteria to diagnose pancreatitis This may be due the cancer and or chemo His TUOLUMNE II score to estimate in-hospital mortality is 25. He has a 40% risk of mortality this admission. Plan: NPO for now / IVF / IV dilaudid for pain 5 Symptomatic? Hyponatremia 2/2 vomiting It is possible that the episodes of syncope were due to hyponatremia. Plan: frequent neuro checks / per s/w ok to c/w NS / f/u serum osmol, U osmol and Franny 6 Syncope Likely due to dehydration from vomiting, poor oral intake, hyponatremia Plan: IVF / treat hyponatremia / check orthostats 7 Primary metabolic alkalosis 2/2 vomiting Plan: IVF / Zofran and Prochlorperazine 8 Lactic acidosis 2/2 Dehydration & sepsis Plan: IVF / trend lactic acid 9 Hypokalemia with Hypomagnesemia 2/2 vomiting Plan: telemetry / replete lytes 10 QTc prolongation EKG showed a rate of 82 w a QTc of 502 Plan: f/u repeat EKG in the morning 11 IDDM Plan: f/u accuchecks Q6H /hypoglycemia protocol / sliding scale insulin / hold oral anti-glycemics & insulin / f/u A1C 12 Pancreatic adenocarcinoma / liver cirrhosis 2/2 Hereditary hemochromatosis Plan; switch from home regimen of morphine to dilaudid (bc of GERARDO) /stool softeners / pancreatic enzymes, gabapengin 13 Dysosmia with ANGEL Plan: own CPAP 14 Class 1 Obesity Complicates care 13 Depression/Anxiety Plan: Paroxetine & hydroxyzine 14 Superficial thrombosis right upper extremity Per notes from April 22 the lovenox was stopped Plan: hold treatment dose lovenox DVT px w lovenox prophylaxis dose (Danii Prediction Score to determine the in- patient risk of VTE & need for anticoagulation is 8. Individuals with a Danii Score <4 are low risk of VTE and thromboprophylaxis should be considered on a [id number] basis while individuals with a Danii score >4 are high risk for VTE and will likely benefit from thromboprophylaxis unless the patient has major contraindication such as major bleeding or thrombocytopenia). Dispo: home after at least 2 midnights stay His LACE Index Score is 12 points which indicates that he is at high risk for re-admission or within the next 30 days. A PFS consult has been placed for d/c planning. His prognosis is guarded Home Medications Scheduled Bisacodyl (Bisacodyl) 5 Mg Tablet.dr, 5 MG PO BID Melatonin (Melatonin) Unknown Strength Tablet, Unknown Dose PO QPM for sleep Scheduled PRN Albuterol Sulfate (Proair Hfa) 8.5 Gm Hfa.aer.ad, 2 PUFF INH Q4H PRN for wheezing Atropine Sulfate (Atropine Sulfate) 1% 2ML Drops, 1 DROP SL Q2HP PRN for TERMINAL SECRETIONS Hydroxyzine HCl (Hydroxyzine HCl) 50 Mg Tablet, 2 TAB PO Q6HP PRN for ANXIETY Hyoscyamine Sulfate (Hyoscyamine Sulfate) 0.125 Mg Tab.subl, 0.125 MG PO Q4HP PRN for TERMINAL SECRETIONS Lorazepam (Ativan) 1 Mg Tablet, 1 MG PO Q2HP PRN for ANXIETY Morphine Sulfate (Morphine Sulfate Concentrate) 100 Mg/5 Ml Solution, 2 MG SL Q2HP PRN for SEVERE PAIN (PS 8-10) Ondansetron (Ondansetron Odt) 4 Mg Tab.rapdis, 4 MG PO Q6HP PRN for NAUSEA OR VOMITING Scopolamine (Transderm-Scop) 1 Each Patch.td.3, 1 MG TOP Q3DP PRN for EXCESSIVE SECRETIONS Sodium Phosphate,Trego-Dibasic (Fleet Enema) 133 Ml Enema, 1 EA VT Q3DP PRN for CONSTIPATION Allergies Coded Allergies: aspartame (Verified Adverse Reaction, Unknown, jittery, dizzy, 01/15/21) A-FIB/CHADSVASC A-FIB History Current/History of A-Fib/PAF?: No Current PO Anticoag Therapy: No LWANGA,ADE MD Jun 20, 2021 21:15
--- NOTE | 2021-06-20 21:45 | REPVR ---
PROCEDURE INFORMATION: Exam: US Retroperitoneal Limited, Kidneys Exam date and time: 06/20/2021 9:34 PM Age: 51 years old Clinical indication: Abnormal findings; Abnormal lab test; Abnormal function test of other organs/systems; Additional info: Moisés TECHNIQUE: Imaging protocol: Real-time ultrasound of the retroperitoneum with image documentation. Examination was focused on the kidneys. COMPARISON: ABD COMPLETE US 10/02/2020 8:20 AM FINDINGS: Right kidney: Right kidney measures 12.6 cm. Normal cortical thickness and echotexture. No stones. No hydronephrosis. Left kidney: Left kidney measures 13.3 cm. Normal cortical thickness and echotexture. No stones. No hydronephrosis. Bladder: Urinary bladder is unremarkable. IMPRESSION: No acute findings. Electronically signed by: Carlos Thayer On 06/20/2021 21:44:54 PM
[2021-06-20] MEDS ORDERED: ATIV1TAB10 PO (21:46)
[2021-06-20] MEDS ORDERED: PANT40TA29 PO (21:46)
[2021-06-20] MEDS ORDERED: DEXA2TA PO (21:46)
[2021-06-20] MEDS ORDERED: GABA-282 PO (21:46)
[2021-06-20] MEDS ORDERED: HOME MED LIST COMPLETE! XX SCH (21:50)
[2021-06-20] MEDS ORDERED: ALBUTEROL 90 MCG/ACT 8GM HFA INHALER INH PRN (21:55)
[2021-06-20] MEDS: BISACODYL 5 MG TAB PO SCH (21:55)
[2021-06-20] MEDS ORDERED: LORazepam 0.5 MG TAB PO PRN (21:55)
[2021-06-20] MEDS ORDERED: hydrOXYzine 50 MG TAB PO PRN (21:55)
[2021-06-20] MEDS ORDERED: EMLA CREAM 5GM TUBE (LIDOCAINE/PRILOCAINE) TOP SCH (21:55)
[2021-06-20] MEDS ORDERED: MORPHINE 10MG/0.5ML ORAL CONCENTRATE SOLUTION U/D SL PRN (21:55)
[2021-06-20] MEDS: ONDANSETRON 4MG/2ML VIAL IV PRN (21:57)
[2021-06-20] MEDS ORDERED: MORPHINE 15 MG SA TAB PO SCH (22:00)
[2021-06-20 22:25] LABS: VENOUS HCO3 36.4 MEQ/L (23.0-27.0); VENOUS O2 SATURATION 41.6 % (60.0-80.0); VENOUS PARTIAL PRESSURE CO2 45.2 mmHg (38.0-50.0); VENOUS PARTIAL PRESSURE O2 26.1 mmHg (30.0-50.0); VENOUS PH 7.524 UNITS (7.330-7.430); VENOUS STANDARD HCO3 34.1 MEQ/L; VENOUS TOTAL CO2 37.8 MEQ/L (24.0-28.0)
[2021-06-20 23:01] LABS: CALCIUM LEVEL 7.1 MG/DL (8.5-10.1); CREATININE FOR GFR 6.24 MG/DL (0.70-1.30); GLOMERULAR FILTRATION RATE 10.2 (>56); PHOSPHORUS LEVEL 7.9 MG/DL (2.5-4.9); POTASSIUM SERUM 2.7 MEQ/L (3.5-5.1)
[2021-06-20 23:02] LABS: PTH INTACT 267.2 PG/ML (18.5-88.0)
[2021-06-20 23:10] LABS: RSV AMPLIFICATION NEGATIVE (NEGATIVE)
[2021-06-20] MEDS ORDERED: KCL 10MEQ/100ML SWI (KRUN) 10 MEQ in IV 1 EA IV ONE (23:50)
[2021-06-20] MEDS ORDERED: POTASSIUM CHLORIDE 10 MEQ SR TABLET PO ONE (23:50)
[2021-06-21] VITALS (9 sets, daily range): BP systolic 78–104; BP diastolic 51–69
[2021-06-21] MEDS ORDERED: HYDROMORPHONE HCL 0.5 MG/ 0.5 ML SYRINGE (J1170 PER 1) IV PRN ×2
[2021-06-21] MEDS ORDERED: MELA3TAB12 PO (00:19)
[2021-06-21 00:27] LABS: MAGNESIUM LEVEL 1.6 MG/DL (1.8-2.4)
[2021-06-21] MEDS: NS 1,000 ML IV SCH ×3 (00:33→10:25)
[2021-06-21] MEDS ORDERED: GLUCOSE 4GM CHEW TABLET PO PRN (00:35)
[2021-06-21] MEDS ORDERED: GLUCAGON INJ 1MG VIAL SC PRN (00:35)
[2021-06-21] MEDS ORDERED: DEXTROSE 50% 50 ML SYRINGE IV PRN (00:35)
[2021-06-21] MEDS ORDERED: KCL 10MEQ/100ML SWI (KRUN) 10 MEQ in IV 1 EA IV ONE ×3 (00:50→23:30)
[2021-06-21] MEDS: RAMELTEON 8 MG TAB (ROZEREM) PO SCH ×2 (01:00→20:59)
[2021-06-21] MEDS ORDERED: ENOXAPARIN 100MG/1ML SYRINGE (J1650 PER 10MG) SQ SCH (01:13)
[2021-06-21] MEDS: HumaLOG INSULIN (NovoLOG) PER UNIT SC SCH ×4 (01:49→17:40)
[2021-06-21] MEDS ORDERED: MAGNESIUM OXIDE 400MG TAB (MAG-OX) PO ONE (01:55)
[2021-06-21] MEDS ORDERED: NS 500 ML IV ONE ×2 (01:55→02:40)
[2021-06-21] MEDS: ONDANSETRON 4MG/2ML VIAL IV PRN ×3 (01:56→17:40)
[2021-06-21] MEDS: GABAPENTIN 100 MG CAP PO SCH ×4 (02:24→20:59)
[2021-06-21 02:27] LABS: ABG BASE EXCESS 9.8 (-2.0-2.0); ABG O2 SATURATION 97.3 % (95.0-99.0); ABG PARTIAL PRESSURE CO2 35.2 mmHg (35.0-45.0); ABG PARTIAL PRESSURE O2 97.7 mmHg (75.0-100.0); ABG STANDARD HCO3 33.6 MEQ/L (22.0-26.0); ABG TOTAL CO2 33.1 MEQ/L (22.0-29.0); ABG pH (ARTERIAL) 7.577 UNITS (7.350-7.450)
[2021-06-21 02:40] LABS: CALCIUM LEVEL 7.7 MG/DL (8.5-10.1); CREATININE FOR GFR 6.25 MG/DL (0.70-1.30); GLOMERULAR FILTRATION RATE 10.2 (>56); POTASSIUM SERUM 2.8 MEQ/L (3.5-5.1)
[2021-06-21] MEDS ORDERED: VANCOMYCIN HCL 750 MG, VIAL MATE ADAPTER 1 EACH in NS 250 ML IV SCH (02:50)
[2021-06-21] MEDS ORDERED: VANCOMYCIN INTERMITTENT/PULSE DOSING BY CLINICAL PHARMACIST PER DOSING PROTOCOL XX SCH (03:05)
[2021-06-21] MEDS ORDERED: HYDROCORTISONE 100 MG/2 ML VIAL (J1720 PER 1) IV ONE (03:22)
[2021-06-21 04:00] LABS: APPEARANCE, URINE CLOUDY (CLEAR); BACTERIA, URINE AUTO NEGATIVE (NEGATIVE); BILIRUBIN, URINE AUTO NEGATIVE (NEGATIVE); BLOOD, URINE BLOOD 1+ (NEGATIVE); COLOR, URINE AMBER (YELLOW); GLUCOSE, URINE (UA) AUTO 1+ mg/dL (NEGATIVE); KETONE, URINE AUTO NEGATIVE (NEGATIVE); LEUKOCYTE ESTERASE, URINE AUTO NEGATIVE (NEGATIVE); NITRITE, URINE AUTO NEGATIVE (NEGATIVE); PROTEIN, URINE AUTO 1+ mg/dL (NEGATIVE); RBC, URINE AUTO 1 /HPF (0-3); SPECIFIC GRAVITY URINE AUTO 1.016 (1.002-1.035); SQUAMOUS EPITHELIAL CELL UR AU 1 /HPF (0-6); UROBILINOGEN, URINE AUTO 0.2 mg/dL (0.0-2.0); WBC, URINE AUTO 5 /HPF (0-3)
[2021-06-21 04:10] LABS: OSMOLALITY URINE 341 MOSM/KG (50-1400)
[2021-06-21 04:20] LABS: SODIUM,RANDOM URINE < 10 MEQ/L
[2021-06-21] MEDS: PIPERACILLIN/TAZOBACTAM SOD 2.25 GM in D5W MINI-BAG PLUS 50 ML IV SCH ×4 (04:26→20:59)
[2021-06-21] MEDS: VANCOMYCIN HCL 1,000 MG, VIAL MATE ADAPTER 1 EACH in NS 250 ML IV SCH ×2 (04:56→06:20)
[2021-06-21] MEDS ORDERED: COSYNTROPIN 0.25 MG/ML VIAL (J0834 PER 0.25MG) IV ONE ×2 (05:00→19:35)
[2021-06-21 06:46] LABS: HEMATOCRIT 39.6 % (42.0-52.0); MEAN CORPUSCULAR HEMOGLOBIN 30.4 pg (27.0-33.0); MEAN CORPUSCULAR HGB CONC 35.4 g/dl (32.0-36.5); MEAN CORPUSCULAR VOLUME 86.1 fl (80.0-96.0); PLATELET COUNT, AUTOMATED 175 10^3/uL (150-450); WHITE BLOOD COUNT 15.5 10^3/uL (4.0-10.0)
[2021-06-21 07:02] LABS: HEMOGLOBIN A1c 5.6 %
[2021-06-21 07:18] LABS: ALBUMIN 2.3 GM/DL (3.2-5.2); BILIRUBIN,DIRECT 0.6 MG/DL (0.0-0.2); BILIRUBIN,TOTAL 1.3 MG/DL (0.2-1.0); CREATININE FOR GFR 6.2 MG/DL (0.70-1.30); GLOMERULAR FILTRATION RATE 10.3 (>56); TOTAL PROTEIN 8.3 GM/DL (6.4-8.2)
[2021-06-21] MEDS ORDERED: PARoxetine 10MG TABLET PO SCH (09:00)
[2021-06-21] MEDS ORDERED: ENOXAPARIN 40MG/0.4ML SYRINGE (J1650 PER 10MG) SC SCH (09:00)
[2021-06-21] MEDS ORDERED: hydrOXYzine 50 MG TAB PO PRN (09:00)
--- NOTE | 2021-06-21 09:01 | ECGEPIP ---
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
[2021-06-21] MEDS: HYDROCORTISONE 100 MG/2 ML VIAL (J1720 PER 1) IV SCH ×3 (09:12→20:59)
[2021-06-21] MEDS: BISACODYL 5 MG TAB PO SCH ×2 (09:13→20:59)
[2021-06-21] MEDS: ENOXAPARIN 30MG/0.3ML SYRINGE (J1650 PER 10MG) SQ SCH (09:13)
[2021-06-21] MEDS: CREON-12 CAPSULE PO SCH ×3 (09:13→17:39)
[2021-06-21 10:48] LABS: CALCIUM LEVEL 7.3 MG/DL (8.5-10.1); CREATININE FOR GFR 6.15 MG/DL (0.70-1.30); GLOMERULAR FILTRATION RATE 10.4 (>56); POTASSIUM SERUM 3.1 MEQ/L (3.5-5.1)
[2021-06-21] MEDS ORDERED: NS 1,000 ML IV ONE (12:15)
--- NOTE | 2021-06-21 12:22 | IPNPDOC ---
Text Note Date of Service The patient was seen on 06/21/21. NOTE Subjective: Patient stated that his abdominal pain improved his nausea getting better. Objective: GENERAL APPEARANCE: NAD HEENT: no scleral icterus, no JVD, EOMI CARDIOVASCULAR: S1S2 LUNGS: CTA ABDOMEN: Obese, soft, slightly tender in the left upper abdominal quadrant MUSCULOSKELETAL: no cyanosis, no swelling INTEGUMENT: no generalized pallor NEUROLOGICAL: cranial nerve function from 2-12 intact, follows commands, speech not dysarthric Assessment and plan Patient is 51 years old male with past medical history of non-Hodgkin's lymphoma, hematochromatosis, pancreatic adenocarcinoma, medically unresectable, liver cirrhosis presented to hospital with abdominal pain. Also patient reported persistent nausea with multiple episodes of vomiting. His last session of palliative chemotherapy for pancreatic cancer was on April 22 Abdominal pain/acute pancreatitis Patient was diagnosed with acute pancreatitis given elevated lipase level and CT abdomen/pelvis presentation Continue aggressive IV fluid Pain management SIRS/lactic acidosis Patient was presented with a leukocytosis, hypotension, lactic acidosis and tachycardia There was concern for sepsis, night team started broad-spectrum antibiotics Await blood culture Continue antibiotics for now Hypotension Most likely secondary to dehydration Patient was on Decadron most likely secondary to chemotherapy We will continue hydrocortisone IV Continue IV fluid GERARDO Most likely secondary to volume depletion Continue IV fluid Nephrology team on board History of syncope Most likely secondary to hypotension due to dehydration Hyponatremia I stopped paroxetine for now Continue to monitor BMP Most likely secondary to SIADH Pancreatic cancer/nausea/vomiting From oncologist note : deemed medically inoperable as of 12/2020 because of advanced cirrhosis with a risk for liver decompensation after major abdominal surgery and likely high morbidity and mortality. -Started Abraxane/gemcitabine chemotherapy 01/20/2021. Prognosis is poor Palliative care consult, hospice consult I decreased the dose and increase interval for Zofran given QTC prolongation, continue metoclopramide. Continue to monitor QTC, telemetry Hematochromatosis/liver cirrhosis Follow-up with crop nutrition scientist in the outpatient settings Obesity BMI 32.3 Complicated care Type 2 diabetes Insulin sliding scale Diabetes diet Electrolyte imbalance Replaced Metabolic alkalosis Secondary to vomiting Continue to monitor Palliative care encounter Prognosis is poor Depression anxiety Continue hydroxyzine Paroxetine on hold due to hyponatremia and SIADH VS,Fishbone, I+O VS, Fishbone, I+O Laboratory Tests 06/20/21 18:03 06/20/21 18:21 06/20/21 22:19 06/21/21 01:55 06/21/21 06:34 06/21/21 06:35 06/21/21 10:09 Vital Signs Date Time Temp Pulse Resp B/P (MAP) Pulse Ox O2 Delivery O2 Flow Rate FiO2 06/21/21 08:00 96.4 71 21 93/51 (65) 97 Room Air 06/21/21 04:00 2.0 I&O- Last 24 Hours up to 6 AM 06/21/21 06:00 Intake Total 3250 ml Output Total 525 ml Balance 2725 ml BETO GALLARDO DO Jun 21, 2021 12:22
[2021-06-21] MEDS ORDERED: SODIUM CHLORIDE 0.9% INJ 10 ML SYR IV PRN (12:50)
[2021-06-21] MEDS: KCL 20MEQ IN 100ML SWI (KRUN) 20 MEQ in IV 1 EA IV SCH ×4 (13:00→14:04)
[2021-06-21 14:15] LABS: CALCIUM LEVEL 6.9 MG/DL (8.5-10.1); CREATININE FOR GFR 6.16 MG/DL (0.70-1.30); GLOMERULAR FILTRATION RATE 10.3 (>56); POTASSIUM SERUM 2.9 MEQ/L (3.5-5.1)
--- NOTE | 2021-06-21 14:46 | ECGEPIP ---
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 Electronically Signed on 06-21-2021 14:46:27 EDT by Adam Phan
[2021-06-21] MEDS ORDERED: KCL 20MEQ in NS 1000ML 1,000 ML IV SCH (15:00)
[2021-06-21 18:41] LABS: CREATININE FOR GFR 5.87 MG/DL (0.70-1.30); GLOMERULAR FILTRATION RATE 10.9 (>56)
[2021-06-21] MEDS: KCL 40MEQ IN D5/0.45NS 1000ML 1,000 ML IV SCH (20:59)
[2021-06-21 23:13] LABS: CALCIUM LEVEL 6.6 MG/DL (8.5-10.1); CREATININE FOR GFR 5.6 MG/DL (0.70-1.30); GLOMERULAR FILTRATION RATE 11.5 (>56); POTASSIUM SERUM 2.8 MEQ/L (3.5-5.1)
[2021-06-22] VITALS (7 sets, daily range): BP systolic 94–115; BP diastolic 57–71
[2021-06-22] MEDS: HumaLOG INSULIN (NovoLOG) PER UNIT SC SCH ×2 (01:39→06:49)
[2021-06-22 02:31] LABS: CALCIUM LEVEL 6.8 MG/DL (8.5-10.1); CREATININE FOR GFR 5.4 MG/DL (0.70-1.30); POTASSIUM SERUM 2.7 MEQ/L (3.5-5.1)
[2021-06-22] MEDS ORDERED: KCL 10MEQ/100ML SWI (KRUN) 10 MEQ in IV 1 EA IV ONE ×2 (02:50→08:00)
[2021-06-22] MEDS: HYDROCORTISONE 100 MG/2 ML VIAL (J1720 PER 1) IV SCH (03:16)
[2021-06-22] MEDS: PIPERACILLIN/TAZOBACTAM SOD 2.25 GM in D5W MINI-BAG PLUS 50 ML IV SCH ×2 (03:16→09:03)
[2021-06-22] MEDS: ONDANSETRON 4MG/2ML VIAL IV PRN ×2 (05:34→16:06)
[2021-06-22 06:07] LABS: ALBUMIN 2.4 GM/DL (3.2-5.2); BILIRUBIN,TOTAL 1.1 MG/DL (0.2-1.0); CALCIUM LEVEL 6.9 MG/DL (8.5-10.1); CREATININE FOR GFR 5.29 MG/DL (0.70-1.30); GLOMERULAR FILTRATION RATE 12.3 (>56); POTASSIUM SERUM 2.7 MEQ/L (3.5-5.1); TOTAL PROTEIN 7.3 GM/DL (6.4-8.2); VANCOMYCIN RANDOM 24.6 UG/ML
[2021-06-22] MEDS ORDERED: KCL 10MEQ/100ML SWI (KRUN) 10 MEQ in IV 1 EA IV SCH (06:35)
[2021-06-22] MEDS ORDERED: MAG SULF 1GM/100ML (MAG RUN) 1 GM in IV 1 EA IV ONE (08:00)
[2021-06-22] MEDS ORDERED: POTASSIUM CHLORIDE 10 MEQ SR TABLET PO ONE (08:00)
[2021-06-22 08:12] LABS: MAGNESIUM LEVEL 1.8 MG/DL (1.8-2.4)
[2021-06-22] MEDS: GABAPENTIN 100 MG CAP PO SCH (08:56)
[2021-06-22] MEDS: ENOXAPARIN 30MG/0.3ML SYRINGE (J1650 PER 10MG) SQ SCH (08:57)
[2021-06-22] MEDS: BISACODYL 5 MG TAB PO SCH (08:57)
[2021-06-22] MEDS: CREON-12 CAPSULE PO SCH (08:57)
[2021-06-22] MEDS ORDERED: HYDROCORTISONE 100 MG/2 ML VIAL (J1720 PER 1) IV SCH (09:00)
[2021-06-22] MEDS ORDERED: SODIUM CHLORIDE 0.9% INJ 10 ML SYR IV SCH (09:00)
[2021-06-22] MEDS: KCL 40MEQ IN D5/0.45NS 1000ML 1,000 ML IV SCH (10:00)
[2021-06-22] MEDS ORDERED: CALCIUM GLUCONATE 1,000 MG in D5W MINI-BAG PLUS 100 ML IV ONE (10:00)
[2021-06-22] MEDS ORDERED: KCL 40MEQ IN D5/NS 1000ML 1,000 ML IV SCH (10:00)
[2021-06-22] MEDS ORDERED: KCL 20MEQ IN 100ML SWI (KRUN) 20 MEQ in IV 1 EA IV SCH ×2 (11:00)
[2021-06-22] MEDS ORDERED: BISACODYL 10 MG SUPP PR PRN (11:55)
[2021-06-22] MEDS ORDERED: SCOPOLAMINE 1MG TRANSDERMAL PATCH TOP PRN (11:55)
[2021-06-22] MEDS ORDERED: HYOSCYAMINE SULFATE 0.125 MG SUBL TABLET PO PRN (11:55)
[2021-06-22] MEDS ORDERED: FLEET ENEMA PR PRN (11:55)
[2021-06-22] MEDS ORDERED: LORazepam 2 MG/ML VIAL IV PRN (11:55)
[2021-06-22] MEDS ORDERED: MORPHINE 2 MG/ML 1ML VIAL (J2270) IV PRN (11:55)
[2021-06-22] MEDS ORDERED: ATROPINE SULFATE 1% OP SOLN 2 ML BTL SL PRN (11:55)
[2021-06-22] MEDS ORDERED: ACETAMINOPHEN TAB 650MG DOSE (2X325MG) PO PRN (11:55)
--- NOTE | 2021-06-22 12:48 | CR ---
NEPHROLOGY CONSULTATION DATE: 06/21/2021 REQUESTING PHYSICIAN: Dr. Alissa Hagan CONSULTING PHYSICIAN: Dr. Anuj Cervantes REASON FOR CONSULTATION: Management of acute renal failure and multiple electrolyte abnormalities. CHIEF COMPLAINT: The patient presented to the hospital last night because of feeling weak and tired and nausea and vomiting. HISTORY OF PRESENT ILLNESS: Sheri Acuña is a 51-year-old male with a past medical history of pancreatic adrenal carcinoma, currently on palliative chemotherapy, history of non-Hodgkin's lymphoma, details as mentioned below, and a history of liver cirrhosis. He presented to the hospital last night with feeling bad, weak, fatigued, tired. For the last few days he had been vomiting at home as well. He could not keep any food down. He was passing out at home. Abdominal pain was about 8/10 in severity. He reports that his last chemotherapy for pancreatic cancer was in April. When the patient was seen in the Emergency Room, he was found to be in acute renal failure with a creatinine of 6.5. He was hyponatremic with a sodium of 120. The patient had a lactic acid level of 6.6 on arrival. He was admitted under the Hospitalist service last night because of acute renal failure and multiple electrolyte abnormalities. The case was discussed with myself last night, and the decision was made to hydrate the patient with IV normal saline and give him broad spectrum IV antibiotics. I saw and evaluated the patient today morning at the bedside. He was getting IV normal saline when I saw him. He reports that he is feeling slightly better today as compared with yesterday. His serum sodium and chloride are improving with normal saline hydration. PAST MEDICAL HISTORY: The patient's past medical history is significant for: 1. Liver cirrhosis secondary to hereditary hemochromatosis. 2. History of COVID infection in November 2020. 3. Moderately differentiated pancreatic adrenal carcinoma, not a surgical candidate. 4. He has a stent in the pancreatic duct, on palliative therapy with Abraxane and Gemcitabine. 5. Non-Hodgkin's lymphoma of the neck, status post localized therapy with excision followed by radiation therapy in 2010. 6. Leukopenia and thrombocytopenia secondary to splenomegaly. 7. Essential hypertension. 8. Hyperlipidemia. 9. Insulin dependent diabetes. 10. Dyssomnia with obstructive sleep apnea. 11. Ureteral stones in the past. 12. Tubular adenoma. 13. Obstructive lung disease. PAST SURGICAL HISTORY: The patient's past surgical history is significant for: 1. Tonsillectomy. 2. Cholecystectomy. 3. History of cystoscopy and laser lithotripsy of right ureteral stones. ALLERGIES: He is allergic to Aspartame. FAMILY HISTORY: His father had liver cancer. His mother had colon cancer. There is a family history of hereditary hemochromatosis. SOCIAL HISTORY: The patient is single. He quit smoking in 2010. He denies any drug abuse at this time. REVIEW OF SYSTEMS: Constitutional: He reports feeling very weak and tired. Eyes: He denies any blurry vision, double vision. ENT: He denies any dysphagia or odynophagia. Cardiovascular: He denies any palpitations. Respiratory: He denies any shortness of breath. Gastrointestinal: He reports decreased oral intake and decreased appetite and nausea and vomiting. Genitourinary: He reports decreased urine output. Musculoskeletal: He denies any muscle aches and pains. Skin: He denies any rashes or ulcers. Hematological/Oncological: He reports pancreatic cancer. EMPLOYEE ADVISER: He reports falling at home and passing out. All other review of systems is negative. PHYSICAL EXAMINATION: GENERAL APPEARANCE: The patient is laying in bed. HEAD AND NECK: Bitemporal wasting is noted. Mucous membranes are moist. Neck is supple. There is no jugular venous distention. CHEST: He has a right anterior chest wall infusaport. CARDIOVASCULAR: S1, S2, regular rate. EXTREMITIES: No edema of the bilateral lower extremities. RESPIRATORY: Chest is clear to auscultation bilaterally. Bilaterally currently no rales or rhonchi. ABDOMEN: Soft. A moderate amount of tenderness to deep palpation in the epigastrium is noted. GENITOURINARY: He has an indwelling Paris catheter. MUSCULOSKELETAL: No clubbing, no cyanosis. Pulses are 2+. EMPLOYEE ADVISER: No focal deficits. Power is 5/5 in all extremities. LAB REVIEW: CBC showed a WBC of 15.5, hemoglobin is 14, platelet count 175. Urinalysis done today morning showed it was cloudy with 1+ protein and 1+ blood. Urine osmolality 341. Creatinine is 288. Urine random sodium is less than 10. ABG showed a pH of 7.57, pco2 of 35, CO2 of 97, bicarbonate is 32, 02 sat is 97.3%. BMP on arrival showed sodium of 120, potassium 3.6, chloride 66, bicarbonate 30, BUN 69, creatinine of 6.5, lactic acid was 6.6, total bilirubin 2.1. AST 55, ALT 27, alkaline phosphatase is 153. Lipase of 3,093. PT is 267. Repeat BMP with IV fluid hydration today in the evening sodium 131, potassium 3, chloride 84, bicarbonate 33, BUN 70, creatinine is 5.8, glucose is 146. Microbiology blood cultures are pending. IMAGING: A renal ultrasound was done which showed no acute findings. A chest x-ray was done which showed multiple small nodules. CAT scan of the abdomen and pelvis was done. It showed a partial duodenal obstruction related to pancreatic head mass. Pancreatic head mass is not significantly changed. Mild peripancreatic stranding would be related to acute or prior mild pancreatitis. No peripancreatic abscess. Cirrhosis of the liver was noted. CURRENT INPATIENT MEDICATIONS: The patient's medications were all reviewed by myself. He was getting IV KCL runs because of hypokalemia. He was normal saline at 200 mL an hour. I switched him to KCL 20 mEq and normal saline at 200 mL an hour in the morning. He was given another normal saline one liter bolus by myself. He required multiple boluses at nighttime as well. He is on Zosyn 2.25 grams IV q. 6 hourly. He was also given Vancomycin two doses, Mylanta p.r.n., Bisacodyl 5 mg twice daily. He is getting Cosyntropin. He was getting Dexamethasone 2 mg p.o. daily which has been stopped now, Lovenox 30 mg subcutaneously daily, Gabapentin 200 mg p.o. three times daily. Hydrocortisone 100 mg IV times one dose was given and he is currently getting 50 mg IV q. 6 hourly. He is getting Dilaudid p.r.n., insulin sliding scale, Ativan p.r.n., magnesium 800 mg p.o. times one dose, pancreatic enzymes 12,000 units with meals. Potassium chloride 40 mEq was given. Compazine p.r.n. for nausea and vomiting. Rozerem 8 mg p.o. q. h.s. for helping him with sleep. ASSESSMENT AND PLAN: 1. Acute oliguric renal failure it is multifactorial. The patient is dehydrated, volume depleted. He has cirrhosis and he was getting chemotherapy. Continue aggressive IV fluid hydration at this time. Since he was on chemotherapy, that can cause interstitial nephritis as well. The patient is already getting a stress dose of Hydrocortisone. I would increase the Hydrocortisone dose to 100 mg IV q. 8 hourly. Given the patient's non resectable pancreatic cancer and palliative chemotherapy, I would not offer hemodialysis to this patient. 2. Sepsis with acute pancreatitis - The patient came in with lactic acidosis, hypotension, tachycardia, elevated white cell count and evidence of inflammation of pancreas on CT scan. He is getting empiric Zosyn IV coverage, and because of liver cirrhosis, I am going to give him albumin as well. 3. History of chronic steroid dependence and need for stress dose steroids as mentioned above, the patient will be given a full dose of Hydrocortisone 100 mg IV q. 8 hourly. 4. Hyponatremia - The patient has hypovolemic hyponatremia which is responding well to normal saline. Hypochloremia is also improving. However sodium is improved from 1.3 to 131 within 24 hours. I have changed the IV fluid to KCL 40 mEq and D5 half normal saline. 5. Hypokalemia - The patient has whole body potassium depletion. Potassium is given IV as well and also added to the IV fluids. I am avoiding giving him oral potassium because of a positive ureteral obstruction and nausea and vomiting. 6. Metabolic alkalosis it is secondary to volume depletion. Continue aggressive IV fluid hydration. 7. Carcinoma of the pancreas - The patient was getting palliative chemotherapy as an outpatient. He is getting pain optimization with opioids, and he is also on pancreatic enzymes. 8. Insulin dependent diabetes - continue insulin sliding scale. Thank you for involving me in the care of this patient. I shall be happy to follow the patient along with you tomorrow morning. Total critical care time spent in the management of this patient today morning in the hospital excluding all the procedures was one hour and 40 minutes.
--- NOTE | 2021-06-22 14:22 | IPNPDOC ---
Text Note Date of Service The patient was seen on 06/22/21. NOTE Subjective: Patient decided to change the CODE STATUS to comfort measures only Objective: GENERAL APPEARANCE: NAD HEENT: no scleral icterus, no JVD, EOMI CARDIOVASCULAR: S1S2 LUNGS: CTA ABDOMEN: Obese, soft, slightly tender in the left upper abdominal quadrant MUSCULOSKELETAL: no cyanosis, no swelling INTEGUMENT: no generalized pallor NEUROLOGICAL: cranial nerve function from 2-12 intact, follows commands, speech not dysarthric Assessment and plan Patient is 51 years old male with past medical history of non-Hodgkin's lymphoma, hematochromatosis, pancreatic adenocarcinoma, medically unresectable, liver cirrhosis presented to hospital with abdominal pain. Also patient reported persistent nausea with multiple episodes of vomiting. His last session of palliative chemotherapy for pancreatic cancer was on April 22. On 06/22/2021 patient was transferred to comfort measures only. Hospice consult placed Abdominal pain/acute pancreatitis SIRS/lactic acidosis Hypotension GERARDO History of syncope Hyponatremia Pancreatic cancer/nausea/vomiting Hematochromatosis/liver cirrhosis Obesity Type 2 diabetes Electrolyte imbalance Metabolic alkalosis Palliative care encounter Depression anxiety VS,Narciso, I+O VS, Narciso, I+O Laboratory Tests 06/21/21 18:07 06/21/21 22:00 06/22/21 01:33 06/22/21 05:11 Vital Signs Date Time Temp Pulse Resp B/P (MAP) Pulse Ox O2 Delivery O2 Flow Rate FiO2 06/22/21 08:00 97.0 51 17 110/60 (77) 99 Nasal Cannula 2.0 I&O- Last 24 Hours up to 6 AM 06/22/21 06:00 Intake Total 4499.0 ml Output Total 2325 ml Balance 2174.0 ml BETO GALLARDO DO Jun 22, 2021 14:22
--- NOTE | 2021-06-22 20:32 | IPN ---
NEPHROLOGY PROGRESS NOTE DATE: 06/22/2021 SUBJECTIVE: Patient was seen and examined at the bedside today morning. Patient still is not feeling better. He is nauseated, throwing up. He has abdominal pains, which are not controlled very well despite aggressive intravenous (IV) fluid hydration. He has soft blood pressures and multiple electrolyte abnormalities. OBJECTIVE: VITAL SIGNS: Temperature 97 degrees Fahrenheit, blood pressure 110/670, pulse 51, respiratory rate 17, saturating 99% on nasal cannula at 2 liters. INTAKE AND OUTPUT: Urine output recorded as 525 mL. Emesis is 400 mL so far since overnight. Weight in the bed scale is not available. PHYSICAL EXAMINATION: GENERAL: Patient is laying in bed, moderate, painful distress. HEAD AND NECK EXAM: Extraocular muscles intact. Pupils equally round and reactive to light. Mucous membranes are moist. Neck is supple. There is no significant jugular venous distention (JVD). CARDIOVASCULAR: S1, S2. Regular rate. No edema of the bilateral lower extremities. RESPIRATORY: Mildly decreased breath sounds at the bases. Otherwise, no active rales or rhonchi. ABDOMEN: Soft. He has a moderate amount of tenderness in the epigastrium. GENITOURINARY: He has an indwelling Paris catheter. MUSCULOSKELETAL: No clubbing or cyanosis. Pulses are 2+. CENTRAL NERVOUS SYSTEM (VASCULAR TECH): Patient is awake, able to follow commands and moves extremities. LABORATORY REVIEW: CBC is not available from today. BMP showed sodium 132, potassium 2.7, chloride 85, bicarbonate 34, BUN 73, creatinine 5.2, calcium 6.9. Total bilirubin 1.1. CURRENT INPATIENT MEDICATIONS: Patient's medications were all reviewed by myself. He is getting intravenous (IV) fluid hydration, multiple runs of IV potassium chloride (KCl) are also being given. He continues to be on IV Zosyn. For pain, he is getting IV Dilaudid. No other significant change in the medications today as compared with yesterday. ASSESSMENT AND PLAN: 1. Acute nonoliguric renal failure. It is secondary to dehydration, volume depletion and acute pancreatitis. He is getting aggressive IV fluid hydration. He was also given albumin because of evidence of cirrhosis and evidence of hypoalbuminemia. 2. Sepsis with acute pancreatitis. Patient is getting IV fluids, IV Zosyn and albumin. He has history of pancreatic cancer. 3. Chronic steroid dependence. Continue current dose of IV hydrocortisone. I did not change the hydrocortisone dose yesterday because he was already getting 50 mg IV every 6 hours, which was adequate for his body mass. 4. Hyponatremia. Patient still has hypovolemic hyponatremia. IV fluids have been changed to potassium chloride (KCl) in normal saline. 5. Hypokalemia. He has significant persistent hypokalemia. Potassium in the IV fluids have been increased and I am going to give him potassium chloride 20 mEq runs through his Jdnoqf-P-Cnyn. 6. Metabolic alkalosis. It is stable with aggressive IV fluid hydration. 7. Carcinoma of the pancreas. It is not operable at this time. Patient was on palliation as outpatient. DISPOSITION: Patient has multiple electrolyte abnormalities and renal failure along with sepsis and cancer of the pancreas, which is not curable at this time. Overall prognosis is poor. Medical team is going to discuss the plans of plan. If patient is made comfort measures only, then nephrology service will sign off.
[2021-06-22] MEDS: RAMELTEON 8 MG TAB (ROZEREM) PO SCH (21:00)
[2021-06-22] MEDS: PROCHLORPERAZINE 5 MG TAB (S0183) PO PRN (21:10)
[2021-06-22] MEDS: MORPHINE 10MG/0.5ML ORAL CONCENTRATE SOLUTION U/D SL PRN (21:12)
[2021-06-23] MEDS: ONDANSETRON 4MG/2ML VIAL IV PRN (01:47)
[2021-06-23 07:12] VITALS: BP 97/54
[2021-06-23 07:20] VITALS: BP 95/53
[2021-06-23] MEDS: MORPHINE 10MG/0.5ML ORAL CONCENTRATE SOLUTION U/D SL PRN ×4 (12:10→18:32)
[2021-06-23] MEDS: LORazepam 1 MG TAB PO PRN ×4 (12:10→18:31)
[2021-06-23] MEDS: ONDANSETRON 4 MG ORAL DISINTEGRATING TAB PO PRN ×2 (12:10→18:31)
[2021-06-23] MEDS: PROCHLORPERAZINE 5 MG TAB (S0183) PO PRN (14:34)
[2021-06-23] MEDS: RAMELTEON 8 MG TAB (ROZEREM) PO SCH (21:03)
[2021-06-24] MEDS: ONDANSETRON 4 MG ORAL DISINTEGRATING TAB PO PRN ×2 (13:23→20:11)
[2021-06-24] MEDS: MORPHINE 10MG/0.5ML ORAL CONCENTRATE SOLUTION U/D SL PRN ×2 (13:23→20:12)
[2021-06-24] MEDS: PROCHLORPERAZINE 5 MG TAB (S0183) PO PRN (15:43)
[2021-06-24] MEDS: RAMELTEON 8 MG TAB (ROZEREM) PO SCH (20:11)
[2021-06-25 03:32] VITALS: BP 56/38
--- NOTE | 2021-06-25 03:52 | IPNPDOC ---
Text Note Date of Service The patient was seen on 06/25/21. NOTE Alerted by nursing staff at approx 0330 that patient had fallen. BP notably 56/38. Saw and examined patient at this time who stated that he became dizzy after standing and fell. Patient tells me that he was and still is having pain in his chest and in his back. Patient admitted to continued dizziness as well. Patient declined workup d/t medical assistant internal medicine status. VS,Fishbone, I+O VS, Fishbone, I+O Vital Signs Date Time Temp Pulse Resp B/P (MAP) Pulse Ox O2 Delivery O2 Flow Rate FiO2 06/25/21 03:32 97.5 95 20 56/38 (44) 100 Room Air 06/22/21 08:00 2.0 I&O- Last 24 Hours up to 6 AM 06/25/21 06:00 Intake Total 360 ml Output Total 1000 ml Balance -640 ml JUAN MANUEL ESQUIVEL Jun 25, 2021 03:52
[2021-06-25] MEDS: MORPHINE 10MG/0.5ML ORAL CONCENTRATE SOLUTION U/D SL PRN ×4 (03:53→20:10)
[2021-06-25] MEDS: ONDANSETRON 4 MG ORAL DISINTEGRATING TAB PO PRN (03:53)
[2021-06-25] MEDS: LORazepam 1 MG TAB PO PRN ×2 (03:53→20:10)
[2021-06-25] MEDS: RAMELTEON 8 MG TAB (ROZEREM) PO SCH (20:10)
[2021-06-26] MEDS: MORPHINE 10MG/0.5ML ORAL CONCENTRATE SOLUTION U/D SL PRN (20:19)
[2021-06-26] MEDS: ONDANSETRON 4 MG ORAL DISINTEGRATING TAB PO PRN (20:19)
[2021-06-26] MEDS: RAMELTEON 8 MG TAB (ROZEREM) PO SCH (20:20)
[2021-06-26] MEDS: LORazepam 1 MG TAB PO PRN (20:20)
[2021-06-27] MEDS ORDERED: HYOS125TA PO (07:47)
[2021-06-27] MEDS ORDERED: ATRO1OPD SL (07:47)
[2021-06-27] MEDS ORDERED: MORP1SOL SL (07:47)
[2021-06-27] MEDS ORDERED: ONDA4TAB6 PO (07:47)
[2021-06-27] MEDS ORDERED: ATIV1TAB7 PO (07:47)
[2021-06-27] MEDS ORDERED: SCOP1PAT2 TOP (07:47)
[2021-06-27] MEDS ORDERED: FLEEENE12 PR (07:47)
--- NOTE | 2021-06-27 15:07 | DS.PDOC ---
Discharge Summary General Date of Admission Jun 20, 2021 at 21:04 Date of Discharge 06/27/2021 Attending Physician: CICI MORROW DO Specialist/Consultants Involve: EMA KHALIL MD Discharge Summary PROCEDURES PERFORMED DURING STAY: None. ADMITTING DIAGNOSES: 1. SIRS versus sepsis. 2. Hypertension 3. Acute kidney injury 4. Acute pancreatitis 5. Symptomatic hyponatremia 6. Syncope 7. Primary metabolic alkalosis secondary to vomiting 8. Lactic acidosis 9. Hypokalemia with hypomagnesemia secondary to vomiting 10. QTC prolongation 11. Insulin-dependent diabetes mellitus 12. Pancreatic adenocarcinoma/liver cirrhosis secondary to hereditary hemochromatosis 13. Dyssomnia with ANGEL 14. Obesity 15. Depression/anxiety 16. Superficial thrombosis of the right upper extremity DISCHARGE DIAGNOSES: 1. SIRS versus sepsis. 2. Hypertension 3. Acute kidney injury 4. Acute pancreatitis 5. Symptomatic hyponatremia 6. Syncope 7. Primary metabolic alkalosis secondary to vomiting 8. Lactic acidosis 9. Hypokalemia with hypomagnesemia secondary to vomiting 10. QTC prolongation 11. Insulin-dependent diabetes mellitus 12. Pancreatic adenocarcinoma/liver cirrhosis secondary to hereditary hemochromatosis 13. Dyssomnia with ANGEL 14. Obesity 15. Depression/anxiety 16. Superficial thrombosis of the right upper extremity COMPLICATIONS/CHIEF COMPLAINT: Moisés, Hyponatremia, Sirs. HISTORY OF PRESENT ILLNESS: Patient is a 51-year-old male who was admitted last in December 2020 for abdominal pain that is attributed to constipation. Today patient presented with chief complaint of feeling bad for 2 months. For the last few days he has been vomiting and cannot keep any food down. Patient says he is also been having episodes where he passes out for about 5 to 10 minutes. He had mid abdominal pain that he rated 8/10 in severity. Patient had his last chemotherapy for pancreatic cancer on April 22 and has not yet scheduled a follow-up appointment. HOSPITAL COURSE: On the first day of the patient's hospitalization patient did improve. Patient was seen by nephrology for his acute kidney injury which is believed to be multifactorial as the patient was dehydrated and has cirrhosis and was getting chemotherapy. Patient had aggressive IV fluid hydration due to the pancreatitis and his sepsis. Patient decided on 06/22/2021 to become comfort measures only and wanted to go home on hospice. Patient has a history of pancreatic adenocarcinoma. Patient was made comfort measures only on 06/22/2021. On 06/25/2021, patient apparently passed out and had a very low blood pressure. Night hospitalist was consulted due to to the low blood pressure but no further work-up was done because the patient was comfort measures only. Patient was doing well in the hospital and home hospice has been set up and patient was discharged on 06/27/2021. DISCHARGE MEDICATIONS: Please see below. ALLERGIES: Please see below. PHYSICAL EXAMINATION ON DISCHARGE: VITAL SIGNS: Please see below. General: Alert and oriented male patient who was laying in bed when I walked in. Patient not appear to be in acute distress. HEENT: Normocephalic, atraumatic, moist mucous membranes. Neck: No lymphadenopathy or thyromegaly Cardiac: Regular rate and rhythm, no murmurs, normal S1, normal S2 Pulm: Clear to auscultation bilaterally. No wheezes, rhonchi, rales Abd: Nondistended, mild tenderness to palpation, no rebound tenderness, normal bowel sounds Ext: No edema bilateral lower extremities LABORATORY DATA: Please see below. IMAGING: CT of the abdomen and pelvis without contrast performed on was reported to show partial duodenal obstruction related to pancreatic head mass. Pancreatic head mass is not significantly changed. My. Pancreatic stranding may be related to acute or prior mild pancreatitis. No peripancreatic abscess. Cirrhotic liver morphology. Chest x-ray performed on 06/20/2021 was reported to show multiple small nodules. No evidence of failure or pneumonia. Renal ultrasound performed on 06/20/2021 is reported to show no acute findings. PROGNOSIS: Poor ACTIVITY: As tolerated. DIET: Regular DISCHARGE PLAN: Discharge home on hospice DISPOSITION: 51 Hospice Home. DISCHARGE INSTRUCTIONS: 1. Follow-up with hospice providers. ITEMS TO FOLLOWUP ON ON OUTPATIENT: 1. None. DISCHARGE CONDITION: Stable. TIME SPENT ON DISCHARGE: 25 minutes. Vital Signs/I&Os Vital Signs Date Time Temp Pulse Resp B/P (MAP) Pulse Ox O2 Delivery O2 Flow Rate FiO2 06/25/21 03:32 97.5 95 20 56/38 (44) 100 Room Air 06/22/21 08:00 2.0 I&O- Last 24 Hours up to 6 AM 06/27/21 06:00 Intake Total 175 ml Output Total 0 ml Balance 175 ml Laboratory Data Labs 24H Laboratory Tests 2 06/26/21 16:11: Coronavirus (COVID-19)(PCR) NEGATIVE Microbiology Microbiology 06/20/21 Blood Culture - Final, Complete NO GROWTH AFTER 5 DAYS 06/20/21 Blood Culture - Final, Complete NO GROWTH AFTER 5 DAYS Discharge Medications Scheduled Bisacodyl (Bisacodyl) 5 Mg Tablet.dr, 5 MG PO BID, (Reported) Melatonin (Melatonin) Unknown Strength Tablet, Unknown Dose PO QPM for sleep, (Reported) Scheduled PRN Albuterol Sulfate (Proair Hfa) 8.5 Gm Hfa.aer.ad, 2 PUFF INH Q4H PRN for wheezing, (Reported) Atropine Sulfate (Atropine Sulfate) 1% 2ML Drops, 1 DROP SL Q2HP PRN for TERMINAL SECRETIONS Hydroxyzine HCl (Hydroxyzine HCl) 50 Mg Tablet, 2 TAB PO Q6HP PRN for ANXIETY, (Reported) Hyoscyamine Sulfate (Hyoscyamine Sulfate) 0.125 Mg Tab.subl, 0.125 MG PO Q4HP PRN for TERMINAL SECRETIONS Lorazepam (Ativan) 1 Mg Tablet, 1 MG PO Q2HP PRN for ANXIETY Morphine Sulfate (Morphine Sulfate Concentrate) 100 Mg/5 Ml Solution, 2 MG SL Q2HP PRN for SEVERE PAIN (PS 8-10) Ondansetron (Ondansetron Odt) 4 Mg Tab.rapdis, 4 MG PO Q6HP PRN for NAUSEA OR VOMITING Scopolamine (Transderm-Scop) 1 Each Patch.td.3, 1 MG TOP Q3DP PRN for EXCESSIVE SECRETIONS Sodium Phosphate,Lamoure-Dibasic (Fleet Enema) 133 Ml Enema, 1 EA TX Q3DP PRN for CONSTIPATION Allergies Coded Allergies: aspartame (Verified Adverse Reaction, Unknown, jittery, dizzy, 01/15/21) CICI MORROW DO Jun 27, 2021 15:07
== END 2021-06-27 11:45 | disposition hospice, home (50) | DRG 282 ==
LOC: M ED 15:31 → M ED INP 21:04 → ENRESERV 23:24 → M PCU 06-21 00:55 → M MSPAV 06-23 21:08
PROVIDERS: ADMIT Internal Medicine; ATTEND Family Medicine
PROC: 30233J1 Transfusion of Nonautologous Serum Albumin into Peripheral Vein, Percutaneous Approach (ICD-10-PCS; principal; 2021-06-21)
DX: K85.90 Acute pancreatitis without necrosis or infection, unspecified (principal); N17.9 Acute kidney failure, unspecified; E87.3 Alkalosis; E87.2 Acidosis; R65.10 Systemic inflammatory response syndrome (SIRS) of non-infectious origin without acute organ dysfunction; C25.0 Malignant neoplasm of head of pancreas; D69.59 Other secondary thrombocytopenia; I95.9 Hypotension, unspecified; E83.42 Hypomagnesemia; I82.611 Acute embolism and thrombosis of superficial veins of right upper extremity; R16.1 Splenomegaly, not elsewhere classified; Z51.5 Encounter for palliative care; Z66 Do not resuscitate; D72.819 Decreased white blood cell count, unspecified; I10 Essential (primary) hypertension; E87.1 Hypo-osmolality and hyponatremia; E83.110 Hereditary hemochromatosis; F41.9 Anxiety disorder, unspecified; E78.5 Hyperlipidemia, unspecified; F32.9 Major depressive disorder, single episode, unspecified; E86.0 Dehydration; E87.6 Hypokalemia; E11.9 Type 2 diabetes mellitus without complications; G47.33 Obstructive sleep apnea (adult) (pediatric); E66.9 Obesity, unspecified; R55 Syncope and collapse; J44.9 Chronic obstructive pulmonary disease, unspecified; Z90.49 Acquired absence of other specified parts of digestive tract; Z87.442 Personal history of urinary calculi; Z86.010 Personal history of colon polyps; Z85.79 Personal history of other malignant neoplasms of lymphoid, hematopoietic and related tissues; Z92.3 Personal history of irradiation; Z87.891 Personal history of nicotine dependence; Z79.891 Long term (current) use of opiate analgesic; Z79.899 Other long term (current) drug therapy; Z91.018 Allergy to other foods; Z86.16 Personal history of COVID-19; Z68.32 Body mass index [BMI] 32.0-32.9, adult; Z80.0 Family history of malignant neoplasm of digestive organs; Z92.21 Personal history of antineoplastic chemotherapy